=== PATIENT | female | born 1955 | race Caucasian/White ===

== ENCOUNTER → 2017-05-07 | Outpatient (CLI) | payer BC, SELFPAY | PROVIDERS: Family Provider Internal Medicine Adolescent Medicine; Visit Provider Internal Medicine Adolescent Medicine | DX: M54.12 Radiculopathy, cervical region (principal) | CPT/HCPCS: 72050 ==

== ENCOUNTER 2017-05-22 11:15 | Day surgery (SDC) | payer BC, SELFPAY ==
[2017-05-22 12:01] VITALS: BP 152/74; BP 163/83; PULSE 102; PULSE 98; RESP 20; TEMP 36.6; O2SAT 96; O2SAT 98
--- NOTE | 2017-05-22 12:07 | HMH.PMPROC ---
- Procedure Date: 05/22/17 Time: 12:08 Anesthesiologist:: Marty Tsang MD Complications:: None Pre-procedure Diagnosis:: Degenerative disc disease of lumbar spine with lumbar radiculopathy symptoms and postlaminectomy syndrome Post-procedure Diagnosis:: Same Indications for Procedure:: She is a pleasant 61-year-old white female who we are treating for low back pain with lumbar radiculopathy symptoms and postlaminectomy syndrome. She has an intrathecal Dilaudid pain pump in place. She is doing well with her pump. She does have some increasing pain today. We will refill her pump today and increase her intrathecal infusion. Patient's back is doing much better however she has increasing leg pain worse at night. We will increase her intrathecal infusion 1.2 mg per day of intrathecal Dilaudid. Procedure Details:: Pain pump refill informed consent was obtained and the risks and benefits of the procedure was explained to the patient. The patient was taken to the procedure room. The pump was interrogated. The area over the pump was prepped using ChloraPrep. The pump was accessed with a 22-gauge needle. Approximately 5 mL's of the intrathecal solution was withdrawn and discarded. The pump was then refilled with 20 mL's of intrathecal Dilaudid 10 mg/mL. The pump was interrogated and the infusion was . Increase to 1.2 mg per day from 1 mg per day. The patient tolerated the procedure well with no complication. Plan and Disposition:: We will follow-up with her and 2 weeks. Given the patient's increasing radicular symptoms especially at night I do believe the patient would benefit from spinal cord stimulation. I have talked to the patient about a spinal cord stimulator trial. We will seek approval and plan on spinal cord stimulator trial to help with her leg pain. She also has episodes of confusion with increases in her medicine so we are limited as to how much to increase her pain pump. Also she had a reaction to bupivacaine so we also limited as to additives to her intrathecal medication. Patient has failed all conservative therapy including injections and physical therapy. Again I believe spinal cord stimulation will help with significantly with her leg pain. She is also previously had back surgery which contributes to her leg pain.
[2017-05-22 12:37] VITALS: BP 115/71; PULSE 84; RESP 18; TEMP 36.5; O2SAT 95
== END 2017-05-22 12:39 | disposition home or self-care (01) ==
LOC: SC.PAINP 11:17
PROVIDERS: Family Provider Internal Medicine Adolescent Medicine; PCP Internal Medicine Adolescent Medicine; Visit Provider Anesthesiology
DX: M51.16 Intervertebral disc disorders with radiculopathy, lumbar region (principal); M96.1 Postlaminectomy syndrome, not elsewhere classified
CPT/HCPCS: 62370

== ENCOUNTER → 2017-09-05 11:01 | Outpatient (CLI) | payer BC, SELFPAY ==
[2017-09-05] VITALS (28 sets, daily range): BP systolic 97–134; BP diastolic 53–76; PULSE 57–93; RESP 15–18; TEMP 36.3–37; O2SAT 94–100; BMI 69.7
[2017-09-05 18:41] LABS: Hematocrit 25.4 % (37.0-47.0); Hemoglobin 7.4 g/dL (12.2-16.2)
[2017-09-05 22:26] LABS: Hematocrit 29.5 % (37.0-47.0); Hemoglobin 8.6 g/dL (12.2-16.2)
--- NOTE | 2017-09-06 08:47 | PC.NURSE ---
ADDENDUM NOTE FROM 09/05/17, PATIENT RECEIVED TWO UNITS OF PRBC'S PER ORDER OF DR. CAMARA. PATIENT'S ONE HOUR POST H&H REVEALED A HEMOGLOBIN OF 7.4 AND [address] OF [address] DR. MCGEE WAS TERMITE RENEWAL INSPECTOR FOR DR. CAMARA I TALKED WITH HIM AND LET HIM KNOW THAT LAB STATED THEY HAD ONE MORE UNIT THAT COULD BE GIVEN. HE GAVE THE ORDER TO GIVE THE LAST UNIT OF BLOOD HERE. I TALKED WITH THE PATIENT AND SHE WAS NOT WANTING TO STAY BECAUSE SHE DOES NOT DRIVE AFTER [place]. SHE THEN STATED SHE WOULD CALL HER FAMILY AND SEE WHAT THEY WANTED HER TO DO. SHE DECIDED TO STAY AND THEY WOULD COME PICK HER UP. I NOTIFIED LAB, [facility] AND HE STATED HE WOULD DO THE NECESSARY PAPER WORK FOR THIS PATIENT. I PASSED THIS ON IN [facility] REPORT, I WENT TO THE LAB AND PICKED UP THE 3RD UNIT OF BLOOD AND HANDED THIS OFF AND VERIFIED THIS UNIT WITH Sammy JOSE RN, I REINSERTED A 20 GAUGE ANGIO CATH IN THE RIGHT AC FOR THIS INFUSION TO TAKE PLACE. DERICK MENDOZA, MSN, RN
== END ==
PROVIDERS: PCP Internal Medicine Adolescent Medicine; Visit Provider Internal Medicine Adolescent Medicine
DX: D64.9 Anemia, unspecified (principal)
CPT/HCPCS: 36415; 36430; 85014; 85018; P9016

== ENCOUNTER → 2017-09-08 14:24 | Outpatient (CLI) | payer BC, SELFPAY ==
[2017-09-08 14:53] LABS: Basophils % 0.7 % (0.1-2.0); Eosinophils % 9.2 % (0.1-12.0); Hematocrit 30.1 % (37.0-47.0); Hemoglobin 8.7 g/dL (12.2-16.2); Lymphocytes # 2.1 K/mm3 (0.7-4.5); Lymphocytes % 44.1 K/mm3 (10-50); Mean Corpuscular HGB Conc 28.8 g/dL (31.8-35.4); Mean Corpuscular Hemoglobin 23.4 pg (27.0-31.2); Mean Corpuscular Volume 81.4 fl (81-99); Mean Platelet Volume 9.5 fl (7.4-10.4); Monocytes # 0.2 K/mm3 (0.1-1.0); Monocytes % 4.9 % (1.7-9.3); Neutrophils % 41.1 % (37.0-80.0); Platelet Count 206 K/mm3 (142-424); Red Cell Distribution Width 19.2 % (11.5-17.5); White Blood Count 4.8 K/mm3 (4.8-10.8)
[2017-09-08 14:54] LABS: Eosinophils # 0.4 K/mm3 (0.0-0.4)
[2017-09-09 07:39] LABS: Blood Urea Nitrogen 18 mg/dL (7-18); Carbon Dioxide 25 mmol/L (21.0-32.0); Chloride 105 mmol/L (98-107); Creatinine,Serum 0.76 mg/dL (0.55-1.02); Estimated Glomerular Filt Rate 77 ml/min (>60); GFR (African American) 94 ML/MIN (>60); Glucose 128 mg/dL (74-106); Sodium 140 mmol/L (136-145)
== END ==
PROVIDERS: Clinical Nurse Specialist Family Health; Visit Provider Internal Medicine Adolescent Medicine
DX: Z01.818 Encounter for other preprocedural examination (principal)
CPT/HCPCS: 36415; 80048; 85025

== ENCOUNTER → 2017-09-15 09:44 | Outpatient (POV) | payer BC, SELFPAY ==
[2017-09-15 10:00] VITALS: BP 131/69; PULSE 81; RESP 18; TEMP 36.5; O2SAT 96; BMI 31.8
--- NOTE | 2017-09-15 10:18 | HMH.PMPROC ---
- Procedure Date: 09/15/17 Time: 10:00 Anesthesiologist:: Jia Adame APRN Complications:: None Pre-procedure Diagnosis:: Degenerative disc disease of the lumbar spine with lumbar radiculopathy symptoms and postlaminectomy syndrome of the lumbar spine Post-procedure Diagnosis:: Same Indications for Procedure:: Patient is a pleasant 62-year-old white female who presents today for neurostimulator trial lead removal. Patient is doing extremely well with her neurostimulator trial. She is states that she is 80-90% better. She states she is able to walk for long distances and is much more functional. She states that her pain is a 2 out of 10 today. Patient states that the pain in her legs and lower back has improved significantly. Patient has intrathecal pain pump which controls her other pain symptoms. Patient has failed other conservative therapies including physical therapy, injections and medications in regards to her radicular pain. Patient has been very satisfied with her trial. Procedure Details:: Informed consent was obtained and the risk and benefits of the procedure were explained to the patient. The patient was taken to the procedure room where noninvasive monitoring was placed including noninvasive blood pressure cuff and pulse oximeter. The neurostimulator was turned off and the area around the leads was cleansed using chlorhexidine as a cleansing solution. Patient was positioned sitting up. Both epidural leads were removed. Leads were intact. Patient tolerated the procedure well. Bandages were placed over the puncture sites. There is no sign symptoms of infection. Plan and Disposition:: We will schedule the patient for permanent placement of a neurostimulator. Patient's neurostimulator was placed out T7 T8-T9-T10 vertebral bodies. Patient has tried and failed other conservative therapies for her radicular pain including injections, physical therapy, medications, anti-inflammatories. Patient is not on any anticoagulation. This note was dictated using voice recognition software and may contain errors or omissions
== END ==
PROVIDERS: Family Provider Internal Medicine Adolescent Medicine; PCP Internal Medicine Adolescent Medicine; Visit Provider Clinical Nurse Specialist Family Health
DX: M54.16 Radiculopathy, lumbar region (principal)
CPT/HCPCS: 99212

== ENCOUNTER → 2017-10-20 10:58 | Outpatient (POV) | payer BC, SELFPAY ==
[2017-10-20 11:28] VITALS: BP 144/54; PULSE 79; RESP 18; O2SAT 98; BMI 31.9
--- NOTE | 2017-10-20 11:49 | HMH.PAINSOAP ---
[facility] Pain Management SOAP Note Subjective:: Patient is a pleasant 62-year-old white female who presents today for follow-up after neurostimulator placement. Patient is extremely well she rates her pain a 2 out of 10 today. Patient is healing well. She denies any sign symptoms of infection. Patient also has intrathecal pain pump placed. Patient states she is doing well with both therapies. States she is doing well and is much more functional. ROS General: no recent weight change, no fever, no sleep disturbances Respiratory: no cough, no shortness of air, no recurring pulmonary infections Cardiovascular/Peripheral Vascular: No chest pain, No palpitations, no edema, no shortness of breath. Gastrointestinal: no incontinence, normal bowel movements reported Genitourinary: no incontinence Musculoskeletal: Cervical pain, low back pain Psychiatric: normal mood/ affect Neurological: [denies weakness in extremities], [denies balance issues] Objective:: Physical Exam General: Alert and oriented x3, no acute distress, pleasant and cooperative, [on room air] Lungs: Resps E/U, Symmetrical chest expansion, Eyes: PERRL Musculoskeletal: Flexion and extension of lumbar spine somewhat guarded secondary to pain, deep tendon reflexes normal, strength in upper and lower extremities [5/5], normal gait noted Neurological: speech clear, technologies division chair equal, no gross sensory deficits Assessment:: Degenerative disc disease of lumbar spine with lumbar radiculopathy symptoms and postlaminectomy syndrome of the lumbar spine, mid back pain with bilateral shoulder pain and degenerative disc disease of the cervical spine Plan:: We will follow-up with this patient in 3 months. Patient is going to be continuing with home refills for her intrathecal pain pump. Patient has been instructed to call the office if she needs anything prior to her next visit. This note was dictated using voice recognition software and may contain errors or omissions
--- NOTE | 2017-10-20 11:52 | P.CONS_ITS ---
[facility] Pain Management SOAP Note Subjective:: Patient is a pleasant 62-year-old white female who presents today for follow-up after neurostimulator placement. Patient is extremely well she rates her pain a 2 out of 10 today. Patient is healing well. She denies any sign symptoms of infection. Patient also has intrathecal pain pump placed. Patient states she is doing well with both therapies. States she is doing well and is much more functional. ROS General: no recent weight change, no fever, no sleep disturbances Respiratory: no cough, no shortness of air, no recurring pulmonary infections Cardiovascular/Peripheral Vascular: No chest pain, No palpitations, no edema, no shortness of breath. Gastrointestinal: no incontinence, normal bowel movements reported Genitourinary: no incontinence Musculoskeletal: Cervical pain, low back pain Psychiatric: normal mood/ affect Neurological: [denies weakness in extremities], [denies balance issues] Objective:: Physical Exam General: Alert and oriented x3, no acute distress, pleasant and cooperative, [ on room air] Lungs: Resps E/U, Symmetrical chest expansion, Eyes: PERRL Musculoskeletal: Flexion and extension of lumbar spine somewhat guarded secondary to pain, deep tendon reflexes normal, strength in upper and lower extremities [5/5], normal gait noted Neurological: speech clear, luncheonette operator equal, no gross sensory deficits Assessment:: Degenerative disc disease of lumbar spine with lumbar radiculopathy symptoms and postlaminectomy syndrome of the lumbar spine, mid back pain with bilateral shoulder pain and degenerative disc disease of the cervical spine Plan:: We will follow-up with this patient in 3 months. Patient is going to be continuing with home refills for her intrathecal pain pump. Patient has been instructed to call the office if she needs anything prior to her next visit. This note was dictated using voice recognition software and may contain errors or omissions
== END ==
PROVIDERS: Family Provider Internal Medicine Adolescent Medicine; PCP Family Medicine; Visit Provider Clinical Nurse Specialist Family Health
DX: M50.30 Other cervical disc degeneration, unspecified cervical region (principal); M51.36 Other intervertebral disc degeneration, lumbar region; M25.512 Pain in left shoulder; M25.511 Pain in right shoulder
CPT/HCPCS: 99212

== ENCOUNTER → 2017-11-12 10:12 | Outpatient (CLI) | payer BC, SELFPAY | PROVIDERS: Visit Provider Family Medicine | DX: D50.9 Iron deficiency anemia, unspecified (principal) | CPT/HCPCS: 36415; 86850; 86870 ==

== ENCOUNTER 2017-11-13 10:02 | Outpatient (CLI) | payer BC, SELFPAY ==
[2017-11-13] VITALS (20 sets, daily range): BP systolic 96–125; BP diastolic 51–73; PULSE 55–79; RESP 18–20; TEMP 36.2–36.4; O2SAT 96–97; BMI 35.2
[2017-11-13 16:13] LABS: Hematocrit 32.2 % (37.0-47.0); Hemoglobin 9.7 g/dL (12.2-16.2)
== END 2017-11-13 16:03 | disposition home or self-care (01) ==
LOC: INF 10:02
PROVIDERS: Family Provider Internal Medicine Adolescent Medicine; PCP Family Medicine; Visit Provider Family Medicine
DX: D50.9 Iron deficiency anemia, unspecified (principal)
CPT/HCPCS: 36430; 85014; 85018; P9016

== ENCOUNTER → 2017-12-03 10:14 | Outpatient (CLI) | payer BC, SELFPAY ==
--- NOTE | 2017-12-03 10:19 | XR_ITS ---
XR knee LT 3V HISTORY: ITS.REASON: ACUTE LT KNEE PAIN ORDERING PHYSICIAN: George Jacob MD PATIENT AGE: 62 years COMPARISON: None FINDINGS: No fracture or dislocation. No lytic or blastic change. Normal mineralization. No significant arthritic changes evident. No other significant findings IMPRESSION: Negative Knee
== END ==
PROVIDERS: PCP Family Medicine; Visit Provider Family Medicine
DX: M25.562 Pain in left knee (principal)
CPT/HCPCS: 73562

== ENCOUNTER → 2017-12-11 10:22 | Outpatient (POV) | payer BC, SELFPAY ==
[2017-12-11 10:59] VITALS: BP 158/80; PULSE 93; RESP 18; O2SAT 96; BMI 32.9
--- NOTE | 2017-12-11 11:07 | HMH.PAINSOAP ---
[facility] Pain Management SOAP Note Subjective:: This patient is a pleasant 62-year-old white female who we are treating for low back pain with lumbar radicular symptoms. She does have an intrathecal hydromorphone pain pump currently going at 2 mg per day. She also has a Nuvectra spinal cord stimulator system in place. She is doing very well with her stimulator and her pain pump. She is recently had some new onset of left knee pain. Her knee hurts whether she is active or sitting. She did get an x-ray done by her primary care physician which said it just showed some degenerative arthritis. She also reports some sciatica type symptoms in her left leg. I believe she would benefit from reprogramming of her stimulator to see if this pain is from sciatica type symptoms. Objective:: Alert and oriented ?3 in no acute distress. Patient does have an antalgic gait. There is no swelling or tenderness over the left knee. Motor strength of the lower extremities is 5/5. There seems to be good range of motion of the left knee. There is no gross sensory deficit. Assessment:: Degenerative disc disease of lumbar spine with lumbar radiculopathy symptoms and postlaminectomy syndrome lumbar spine. Left knee pain Plan:: We will plan on reprogramming her stimulator to see if this helps with her left-sided knee pain and sciatica type symptoms. If she does not get any benefit from reprogramming of her stimulator then we will plan on a left knee intra-articular injection next week.
--- NOTE | 2017-12-11 11:12 | P.CONS_ITS ---
[facility] Pain Management SOAP Note Subjective:: This patient is a pleasant 62-year-old white female who we are treating for low back pain with lumbar radicular symptoms. She does have an intrathecal hydromorphone pain pump currently going at 2 mg per day. She also has a Nuvectra spinal cord stimulator system in place. She is doing very well with her stimulator and her pain pump. She is recently had some new onset of left knee pain. Her knee hurts whether she is active or sitting. She did get an x- ray done by her primary care physician which said it just showed some degenerative arthritis. She also reports some sciatica type symptoms in her left leg. I believe she would benefit from reprogramming of her stimulator to see if this pain is from sciatica type symptoms. Objective:: Alert and oriented ?3 in no acute distress. Patient does have an antalgic gait. There is no swelling or tenderness over the left knee. Motor strength of the lower extremities is 5/5. There seems to be good range of motion of the left knee. There is no gross sensory deficit. Assessment:: Degenerative disc disease of lumbar spine with lumbar radiculopathy symptoms and postlaminectomy syndrome lumbar spine. Left knee pain Plan:: We will plan on reprogramming her stimulator to see if this helps with her left- sided knee pain and sciatica type symptoms. If she does not get any benefit from reprogramming of her stimulator then we will plan on a left knee intra- articular injection next week.
[2017-12-11 11:39] LABS: Creatine Kinase 24 U/L (26-192)
== END ==
PROVIDERS: Family Provider Internal Medicine Adolescent Medicine; PCP Family Medicine; Visit Provider Anesthesiology
DX: M51.16 Intervertebral disc disorders with radiculopathy, lumbar region (principal); M96.1 Postlaminectomy syndrome, not elsewhere classified; M25.562 Pain in left knee
CPT/HCPCS: 36415; 82550; 99212

== ENCOUNTER → 2018-01-04 15:29 | Outpatient (POV) | payer BC, SELFPAY ==
[2018-01-04 15:30] VITALS: BP 141/73; PULSE 74; RESP 18; O2SAT 97; BMI 34.3
--- NOTE | 2018-01-04 15:51 | HMH.PAINSOAP ---
[facility] Pain Management SOAP Note Subjective:: Patient is a pleasant 62-year-old white female who we are treating for low back pain with lumbar radicular symptoms as well as bilateral pain. Patient but has both a neuro stimulator and intrathecal pain pump. Patient's only complaint of pain is in her bilateral knees. Patient had bilateral knee injections several weeks ago and did quite well with them. Patient would like to repeat this. If she does not get long-term relief we did discuss an orthopedic evaluation for Synvisc injections. She rates an 8 out of 10 today. Patient is currently on anti-inflammatories. ROS General: no recent weight change, no fever, no sleep disturbances Respiratory: no cough, no shortness of air, no recurring pulmonary infections Cardiovascular/Peripheral Vascular: No chest pain, No palpitations, no edema, no shortness of breath. Gastrointestinal: no incontinence, normal bowel movements reported Genitourinary: no incontinence Musculoskeletal: Bilateral knee pain Psychiatric: normal mood/ affect Neurological: [denies weakness in extremities], [denies balance issues] Objective:: Physical Exam General: Alert and oriented x3, no acute distress, pleasant and cooperative, [on room air] Lungs: Resps E/U, Symmetrical chest expansion, Eyes: PERRL Musculoskeletal: Range of motion bilateral knees somewhat guarded secondary to pain, deep tendon reflexes normal, strength in upper and lower extremities [5/5], [abnormal gait noted] Neurological: speech clear, outfitter cabin equal, no gross sensory deficits Assessment:: Osteoarthritis bilateral knees, degenerative disc disease of lumbar spine with lumbar radiculopathy Plan:: We will schedule patient for bilateral intra-articular knee injections. Patient and I did discuss if she does not get long-term relief we will send her to [facility] for possible Synvisc injections.
--- NOTE | 2018-01-04 15:54 | P.CONS_ITS ---
[facility] Pain Management SOAP Note Subjective:: Patient is a pleasant 62-year-old white female who we are treating for low back pain with lumbar radicular symptoms as well as bilateral pain. Patient but has both a neuro stimulator and intrathecal pain pump. Patient's only complaint of pain is in her bilateral knees. Patient had bilateral knee injections several weeks ago and did quite well with them. Patient would like to repeat this. If she does not get long-term relief we did discuss an orthopedic evaluation for Synvisc injections. She rates an 8 out of 10 today. Patient is currently on anti-inflammatories. ROS General: no recent weight change, no fever, no sleep disturbances Respiratory: no cough, no shortness of air, no recurring pulmonary infections Cardiovascular/Peripheral Vascular: No chest pain, No palpitations, no edema, no shortness of breath. Gastrointestinal: no incontinence, normal bowel movements reported Genitourinary: no incontinence Musculoskeletal: Bilateral knee pain Psychiatric: normal mood/ affect Neurological: [denies weakness in extremities], [denies balance issues] Objective:: Physical Exam General: Alert and oriented x3, no acute distress, pleasant and cooperative, [ on room air] Lungs: Resps E/U, Symmetrical chest expansion, Eyes: PERRL Musculoskeletal: Range of motion bilateral knees somewhat guarded secondary to pain, deep tendon reflexes normal, strength in upper and lower extremities [5/5] , [abnormal gait noted] Neurological: speech clear, foot tender equal, no gross sensory deficits Assessment:: Osteoarthritis bilateral knees, degenerative disc disease of lumbar spine with lumbar radiculopathy Plan:: We will schedule patient for bilateral intra-articular knee injections. Patient and I did discuss if she does not get long-term relief we will send her to [facility] for possible Synvisc injections.
== END ==
PROVIDERS: Family Provider Internal Medicine Adolescent Medicine; PCP Family Medicine; Visit Provider Clinical Nurse Specialist Family Health
DX: M17.0 Bilateral primary osteoarthritis of knee (principal); M51.16 Intervertebral disc disorders with radiculopathy, lumbar region
CPT/HCPCS: 99213

== ENCOUNTER → 2018-02-01 13:31 | Outpatient (POV) | payer BC, SELFPAY ==
[2018-02-01 13:41] VITALS: BP 154/79; PULSE 83; RESP 18; O2SAT 95; BMI 34.3
--- NOTE | 2018-02-01 13:57 | P.PCN_ITS ---
- Procedure Date: 02/01/18 Time: 13:50 Anesthesiologist:: Jia Adame APRN Complications:: None Pre-procedure Diagnosis:: degenerative disc disease of lumbar spine with lumbar radiculopathy, bilateral knee osteoarthritis Post-procedure Diagnosis:: Same Indications for Procedure:: Patient is a pleasant 62-year-old white female who presents today for follow-up in regards to her bilateral knee injections. Patient states she got up to 10 days relief however the pain has returned. Patient's back pain and radicular pain are managed with a intrathecal pain pump going with Dilaudid 2 mg per day and a neurostimulator. Patient rates a 6 out of 10 today mostly in her knees. Patient's requesting a small intrathecal pain pump adjustment. Patient is tried and failed anti-inflammatories. Patient has not been seen for Synvisc injections. Physical Exam General: Alert and oriented x3, no acute distress, pleasant and cooperative, [on room air] Lungs: Resps E/U, Symmetrical chest expansion, Eyes: PERRL Musculoskeletal: Flexion and extension of lumbar spine somewhat guarded secondary to pain, deep tendon reflexes normal, strength in upper and lower extremities [5/5], [abnormal gait noted] Neurological: speech clear, driver/merchandiser equal, no gross sensory deficits Procedure Details:: Informed consent was obtained and the risk and benefits of the procedure were explained to the patient. The patient was taken to the procedure room where noninvasive monitoring was placed including noninvasive blood pressure cuff and pulse oximeter. Patient's pump was interrogated. The infusion rate was increased to 2.25 mg a day. The patient tolerated the procedure well. Plan and Disposition:: We will set up an appointment with the orthopedic surgeon to see if she is a candidate for Synvisc injections. Patient has been instructed to call the office if she has any issues prior to her next appointment. This note was dictated using voice recognition software and may contain errors or omissions
== END ==
PROVIDERS: Family Provider Internal Medicine Adolescent Medicine; PCP Family Medicine; Visit Provider Clinical Nurse Specialist Family Health
DX: M51.16 Intervertebral disc disorders with radiculopathy, lumbar region (principal); M17.0 Bilateral primary osteoarthritis of knee
CPT/HCPCS: 62368; 99212

== ENCOUNTER → 2018-03-03 13:18 | Outpatient (CLI) | payer BC, SELFPAY ==
--- NOTE | 2018-03-03 13:20 | XR_ITS ---
XR knee RT 4V, XR knee LT 4V Ordering Physician: Ramos Camacho MD Patient Age: 62 years: Female HISTORY: ITS.REASON: right knee pain/ 4 views weighbearing XR knee RT 4V, XR knee LT 4V TECHNIQUE: Weightbearing AP, lateral and Lazo views were performed as well as oblique. Of both right and left knee. COMPARISON : Previous left knee 02/21/1918 none relevant on right ========= RIGHT KNEE 4 view joint space fairly well maintained with only borderline narrowing towards the lateral compartment.. No joint effusion. Bones well mineralized Patellofemoral joint relationships appear normal. Early sharpening early spurring along the lateral and superior margins of patella. A reflect scant degenerative change here. IMPRESSION right knee intact. No joint effusion only question borderline narrowing at the lateral compartment ======== LEFT KNEE 4 view Heart borderline to perhaps slight mild narrowing joint space at the lateral compartmentOn weightbearing view.. With this there question slight valgus orientation of distal tibia possibly associated. .. There is a small joint effusion suspected the suprapatella bursa on the left. Patellofemoral joint appears satisfactory Impression: Left knee Left knee, borderline narrowing the lateral compartment suggested on the weightbearing view. Small joint effusion
== END ==
PROVIDERS: PCP Family Medicine; Visit Provider Orthopaedic Surgery
DX: M25.561 Pain in right knee (principal); M25.562 Pain in left knee
CPT/HCPCS: 73564

== ENCOUNTER → 2018-04-20 09:25 | Outpatient (POV) | payer BC, SELFPAY ==
[2018-04-20 09:38] VITALS: BP 149/83; PULSE 74; RESP 18; O2SAT 98; BMI 36.0
--- NOTE | 2018-04-20 10:59 | P.PCN_ITS ---
- Procedure Date: 04/20/18 Time: 10:00 Anesthesiologist:: Jia Adame APRN Complications:: None Pre-procedure Diagnosis:: Degenerative disc disease lumbar spine with lumbar radiculopathy and bilateral knee osteoarthritis Post-procedure Diagnosis:: Same Indications for Procedure:: Patient is a very pleasant 62-year-old white female who presents today for follow-up and intrathecal pain pump reprogramming. Patient has an equal pain pump along with a neurostimulator and is doing well with this. Patient was having some increased leg pain however this is been attributed to the statin that she started. Patient is doing much better. Patient and I discussed periodic flow today and she would like to move forward with this. Patient did have injections of gel in her knees and she states that this is helping. She rates her pain a 5 out of 10 today. ROS General: no recent weight change, no fever, no sleep disturbances Respiratory: no cough, no shortness of air, no recurring pulmonary infections Cardiovascular/Peripheral Vascular: No chest pain, No palpitations, no edema, no shortness of breath. Gastrointestinal: no incontinence, normal bowel movements reported Genitourinary: no incontinence Musculoskeletal: Back pain, leg pain Psychiatric: normal mood/ affect Neurological: [denies weakness in extremities], [denies balance issues] Physical Exam General: Alert and oriented x3, no acute distress, pleasant and cooperative, [on room air] Lungs: Resps E/U, Symmetrical chest expansion, Eyes: PERRL Musculoskeletal: Flexion and extension of lumbar spine somewhat guarded secondary to pain, deep tendon reflexes normal, strength in upper and lower extremities [5/5], [abnormal gait noted] Neurological: speech clear, production or plant engineer equal, no gross sensory deficits Procedure Details:: Informed consent was obtained and the risk and benefits of the procedure were explained to the patient. The patient was taken to the procedure room where noninvasive monitoring was placed including noninvasive blood pressure cuff and pulse oximeter. Patient's pump was interrogated. The infusion rate was changed to 0.325 mg every 2 hours of Dilaudid. The patient tolerated the procedure well. Plan and Disposition:: I will follow-up with this patient in 3-4 months and reassess her symptoms at that time. Patient is being filled at home and we have notified the nurses of the change. Patient's been instructed to call the office if she has any issues prior to her next appointment. This note was dictated using voice recognition software and may contain errors or omissions
== END ==
PROVIDERS: PCP Family Medicine; Visit Provider Clinical Nurse Specialist Family Health
DX: M51.16 Intervertebral disc disorders with radiculopathy, lumbar region (principal); M17.0 Bilateral primary osteoarthritis of knee
CPT/HCPCS: 62368

== ENCOUNTER → 2018-08-13 10:46 | Outpatient (POV) | payer BC, SELFPAY ==
[2018-08-13 11:45] VITALS: BP 148/88; PULSE 78; RESP 18; O2SAT 95; BMI 38.2
--- NOTE | 2018-08-13 12:03 | HMH.PMPROC ---
- Procedure Date: 08/13/18 Time: 12:03 Anesthesiologist:: Marty Tsang MD Complications:: None Pre-procedure Diagnosis:: Degenerative disc disease of lumbar spine with lumbar radiculopathy symptoms Post-procedure Diagnosis:: Same Indications for Procedure:: This patient is a pleasant 63-year-old white female who has an intrathecal hydromorphone pain pump in place. She had been doing very well with her pump. She is now having some increased pain with increased activity. She is also had some recent falls. Her last adjustment was several months ago by home refill service. We will increase her intrathecal morphine infusion today. She has had no side effects with the medication. Motor strength of the lower extremities is 5/5. There is no gross sensory deficit. She does have an antalgic gait. Procedure Details:: Reprogramming and adjustment of intrathecal pain pump. Informed consent was obtained and the risk and benefits of the procedure was explained to the patient. Patient was taken to the procedure room. The pump was interrogated and reprogrammed. Intrathecal hydromorphone infusion was increased to 3.2 mg/day. PTC boluses were increased to 0.3 mg up to 4 times a day as needed. Patient tolerated the procedure well with no complications. Plan and Disposition:: We will follow-up with her in 1 month. Will reevaluate symptoms at that time.
--- NOTE | 2018-08-13 12:06 | P.PCN_ITS ---
- Procedure Date: 08/13/18 Time: 12:03 Anesthesiologist:: Marty Tsang MD Complications:: None Pre-procedure Diagnosis:: Degenerative disc disease of lumbar spine with lumbar radiculopathy symptoms Post-procedure Diagnosis:: Same Indications for Procedure:: This patient is a pleasant 63-year-old white female who has an intrathecal hydromorphone pain pump in place. She had been doing very well with her pump. She is now having some increased pain with increased activity. She is also had some recent falls. Her last adjustment was several months ago by home refill service. We will increase her intrathecal morphine infusion today. She has had no side effects with the medication. Motor strength of the lower extremities is 5/5. There is no gross sensory deficit. She does have an antalgic gait. Procedure Details:: Reprogramming and adjustment of intrathecal pain pump. Informed consent was obtained and the risk and benefits of the procedure was ex plained to the patient. Patient was taken to the procedure room. The pump was interrogated and reprogrammed. Intrathecal hydromorphone infusion was increased to 3.2 mg/day. PTC boluses were increased to 0.3 mg up to 4 times a day as needed. Patient tolerated the procedure well with no complications. Plan and Disposition:: We will follow-up with her in 1 month. Will reevaluate symptoms at that time.
--- NOTE | 2019-03-10 14:44 | PC.NURSE ---
LYRICA 100MG TID WITH 2 REFILLS CALLED INTO [facility] PER PROVIDER ORDER
== END ==
LOC: SC.PAIN 10:48
PROVIDERS: PCP Family Medicine; Visit Provider Anesthesiology
DX: M51.16 Intervertebral disc disorders with radiculopathy, lumbar region (principal); Z91.81 History of falling
CPT/HCPCS: 62368

== ENCOUNTER → 2019-03-28 10:03 | Outpatient (POV) | payer BC, SELFPAY ==
[2019-03-28 10:24] VITALS: BP 140/77; PULSE 80; RESP 18; O2SAT 98; BMI 39.4
--- NOTE | 2019-03-28 14:06 | HMH.PAINSOAP ---
[facility] Pain Management SOAP Note Subjective:: Patient is a pleasant 63-year-old female who presents today for follow-up. Patient has a intrathecal pain pump and a neurostimulator. Patient is currently on home refill and overall doing well she rates her pain a 4 out of 10 she recently had a fall and has bruised her me up significantly. She denies any side effects to her medications. She is also on Lyrica 100 mg. Patient's LUIS #[id number] reviewed and appropriate. ROS General: no recent weight change, no fever, no sleep disturbances Respiratory: no cough, no shortness of air, no recurring pulmonary infections Cardiovascular/Peripheral Vascular: No chest pain, No palpitations, no edema, no shortness of breath. Gastrointestinal: no new onset incontinence, normal bowel movements reported Genitourinary: no new onset incontinence Musculoskeletal: Back pain Psychiatric: normal mood/ affect Neurological: [denies new onset weakness in extremities], [denies new onset balance issues] Objective:: Physical Exam General: Alert and oriented x3, no acute distress, pleasant and cooperative, [on room air] Lungs: Resps E/U, Symmetrical chest expansion, Eyes: PERRL Musculoskeletal: Flexion and extension of lumbar spine somewhat guarded secondary to pain, deep tendon reflexes normal, strength in upper and lower extremities [5/5], [abnormal gait noted] Neurological: speech clear, imaging account manager equal, no gross sensory deficits Assessment:: Degenerative disc disease lumbar spine with lumbar radiculopathy Plan:: We will see the patient back in 6 months reassess her symptoms at that time patient may need an anti-inflammatory we discussed starting naproxen. Patient is going to call us if she needs anything prior to her next appointment. Patient is good to continue her home refills. Dr. Tsang has reviewed this note and agrees with this plan of care. This note was dictated using voice recognition software and may contain errors or omissions [facility] History I have reviewed the patient's past medical history: Yes Medical History: Reports:: Asthma, Depression, Diabetes Mellitus Type 2, Gastroesophageal Reflux Disease(GERD), Hypertension Denies:: Cancer, Diabetes Mellitus Type 1, Internal Pacemaker, MRSA, Seizures *Have you ever received a pneumonia vaccine?: Yes *Have you received a flu vaccine this season?: Yes Other Medical History: Reports: Anemia, Arthritis, Other. Denies: Blood Transfusion Reaction Laterality Cases: Bilateral: Other Other Surgeries: Yes: Colonoscopy, EGD, Other (Cervical Fusion, intrathecal pain pump ). No: Pacemaker Amputation: No Fractures: No - *Social History Smoking Status: Never smoker Alcohol Intake: never *Occupational Status:: other Housing: house Household Members: none *Travel in the last 8 weeks: None - Psychiatric History Pschychiatric History:: Reports:: Depression Family Hx:: Asthma, Cancer, Diabetes, Kidney Disease, Stroke
--- NOTE | 2019-03-28 14:09 | P.CONS_ITS ---
[facility] Pain Management SOAP Note Subjective:: Patient is a pleasant 63-year-old female who presents today for follow-up. Patient has a intrathecal pain pump and a neurostimulator. Patient is currently on home refill and overall doing well she rates her pain a 4 out of 10 she recently had a fall and has bruised her me up significantly. She denies any side effects to her medications. She is also on Lyrica 100 mg. Patient's LUIS #[id number] reviewed and appropriate. ROS General: no recent weight change, no fever, no sleep disturbances Respiratory: no cough, no shortness of air, no recurring pulmonary infections Cardiovascular/Peripheral Vascular: No chest pain, No palpitations, no edema, no shortness of breath. Gastrointestinal: no new onset incontinence, normal bowel movements reported Genitourinary: no new onset incontinence Musculoskeletal: Back pain Psychiatric: normal mood/ affect Neurological: [denies new onset weakness in extremities], [denies new onset balance issues] Objective:: Physical Exam General: Alert and oriented x3, no acute distress, pleasant and cooperative, [on room air] Lungs: Resps E/U, Symmetrical chest expansion, Eyes: PERRL Musculoskeletal: Flexion and extension of lumbar spine somewhat guarded secondary to pain, deep tendon reflexes normal, strength in upper and lower extremities [5/5], [abnormal gait noted] Neurological: speech clear, magnetic healer equal, no gross sensory deficits Assessment:: Degenerative disc disease lumbar spine with lumbar radiculopathy Plan:: We will see the patient back in 6 months reassess her symptoms at that time patient may need an anti-inflammatory we discussed starting naproxen. Patient is going to call us if she needs anything prior to her next appointment. Patient is good to continue her home refills. Dr. Tsang has reviewed this note and agrees with this plan of care. This note was dictated using voice recognition software and may contain errors or omissions [facility] History I have reviewed the patient's past medical history: Yes Medical History: Reports:: Asthma, Depression, Diabetes Mellitus Type 2, Gastroesophageal Reflux Disease(GERD), Hypertension Denies:: Cancer, Diabetes Mellitus Type 1, Internal Pacemaker, MRSA, Seizures *Have you ever received a pneumonia vaccine?: Yes *Have you received a flu vaccine this season?: Yes Other Medical History: Reports: Anemia, Arthritis, Other. Denies: Blood Transfusion Reaction Laterality Cases: Bilateral: Other Other Surgeries: Yes: Colonoscopy, EGD, Other (Cervical Fusion, intrathecal pain pump ). No: Pacemaker Amputation: No Fractures: No - *Social History Smoking Status: Never smoker Alcohol Intake: never *Occupational Status:: other Housing: house Household Members: none *Travel in the last 8 weeks: None - Psychiatric History Pschychiatric History:: Reports:: Depression Family Hx:: Asthma, Cancer, Diabetes, Kidney Disease, Stroke
--- NOTE | 2019-04-04 14:12 | PC.PHONENOTE ---
called in RX for Elavil 25mg QHS with no refills per provider order.
== END ==
PROVIDERS: PCP Family Medicine; Visit Provider Clinical Nurse Specialist Family Health
DX: M51.16 Intervertebral disc disorders with radiculopathy, lumbar region (principal)
CPT/HCPCS: 99212

== ENCOUNTER → 2019-04-12 12:51 | Outpatient (POV) | payer BC, SELFPAY ==
[2019-04-12 13:22] VITALS: BP 131/67; PULSE 74; RESP 20; O2SAT 98; BMI 37.8
--- NOTE | 2019-04-12 13:44 | P.PCN_ITS ---
- Procedure Date: 04/12/19 Time: 13:43 Anesthesiologist:: Jia Adame APRN Complications:: None Pre-procedure Diagnosis:: Degenerative disc disease lumbar spine with lumbar radiculopathy Post-procedure Diagnosis:: Same Indications for Procedure:: Patient is a pleasant 63-year-old white female who presents today for intrathecal pain pump adjustment. Patient is currently on a dose of 4.56 mg/day. She denies side effects to her medication she is on a Dilaudid infusion. Patient [facility] #[id number] reviewed and appropriate. She rates her pain today 6 out of 10. Physical Exam General: Alert and oriented x3, no acute distress, pleasant and cooperative, [on room air] Lungs: Resps E/U, Symmetrical chest expansion, Eyes: PERRL Musculoskeletal: Flexion and extension of lumbar spine somewhat guarded secondary to pain, deep tendon reflexes normal, strength in upper and lower extremities [5/5], [abnormal gait noted] Neurological: speech clear, account manager employee benefits equal, no gross sensory deficits Procedure Details:: Informed consent was obtained and the risk and benefits of the procedure were explained to the patient. The patient was taken to the procedure room where noninvasive monitoring was placed including noninvasive blood pressure cuff and pulse oximeter. Patient's pump was interrogated and reprogrammed. The infusion rate was increased to 5 mg of Dilaudid a day. The patient tolerated the procedure well. Plan and Disposition:: I will see the patient back in 2 to 3 weeks reassess her symptoms at that time she is been instructed to call the office if she has any issues prior to her next appointment. Dr. Tsang has reviewed this note and agrees with this plan of care. This note was dictated using voice recognition software and may contain errors or omissions
--- NOTE | 2019-06-16 10:22 | PC.NURSE ---
PREGABALIN 100MG TID WITH TWO REFILLS CALLED INTO [facility] PER PROVIDER ORDER
== END ==
PROVIDERS: PCP Family Medicine; Visit Provider Clinical Nurse Specialist Family Health
DX: M51.16 Intervertebral disc disorders with radiculopathy, lumbar region (principal)
CPT/HCPCS: 62368

== ENCOUNTER → 2019-10-06 10:35 | Outpatient (CLI) | payer BC, SELFPAY ==
--- NOTE | 2019-10-06 10:43 | XR_ITS ---
PROCEDURE: XR CERVICAL SPINE 5V CLINICAL INDICATION: DISORDER OF NECK Neck pain, prior neck surgery COMPARISON: CS5 CERVICAL SPINE 4 OR 5 VIEWS from 05/07/2017 FINDINGS: There is kyphosis the upper thoracic spine. Epidural stimulator devices are present in the thoracic spine. There is a cerclage wire along the spinous processes of C6 and C7. There is normal alignment of the cervical spine with 2-3 mm anterolisthesis of C4 on C5. No foraminal narrowing is evident. No fracture or dislocation. No lytic or blastic change. There is degenerative disc disease at C3-C4 C4-C5 C5-C6 and C6-C7 most severe at C5-C6 IMPRESSION: Degenerative changes as described above. Dictated by: Henry Olvera MD 10/06/2019 11:48 Electronically signed by Henry Olvera MD in [place] 10/06/2019 11:48
== END ==
LOC: RAD 10:37
PROVIDERS: PCP Family Medicine; Visit Provider Family Medicine
DX: M53.82 Other specified dorsopathies, cervical region (principal)
CPT/HCPCS: 72050

== ENCOUNTER 2019-11-01 11:00 | Outpatient (RCR) | payer BC, SELFPAY ==
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
== END 2019-11-22 10:11 | disposition home or self-care (01) ==
LOC: PT.CARL 11:00
PROVIDERS: PCP Family Medicine; Visit Provider Family Medicine
DX: M50.30 Other cervical disc degeneration, unspecified cervical region (principal); M53.82 Other specified dorsopathies, cervical region
CPT/HCPCS: 97110; 97140; 97163

== ENCOUNTER → 2019-11-02 11:04 | Outpatient (POV) | payer BC, SELFPAY ==
[2019-11-02 11:13] VITALS: BP 132/85; PULSE 85; RESP 18; TEMP 36.6; O2SAT 99; BMI 38.4
--- NOTE | 2019-11-02 14:44 | P.CONS_ITS ---
[facility] Pain Management SOAP Note Subjective:: Patient is a pleasant 64-year-old white female who we have been treating for low back pain with lumbar radicular symptoms and bilateral knee pain left greater than right. She has failed all previous conservative treatments. I talked her about peripheral nerve stimulation with the Sprint PCS system to help with her left knee pain. We will seek approval and plan on peripheral nerve stimulation with the Sprint PCS system of the femoral/saphenous nerve to help with her left knee pain. Objective:: Alert and oriented x3 no acute distress. Patient has an antalgic gait. Motor strength of lower extremities is 5/5. There is no gross sensory deficit. Assessment:: Degenerative disc disease of lumbar spine with lumbar radiculopathy symptoms and bilateral knee pain left greater than right Plan:: We will seek approval and plan on peripheral nerve stimulation of the left femoral/saphenous nerve with the Sprint PCS peripheral nerve stimulation system. [facility] History I have reviewed the patient's past medical history: Yes Medical History: Reports:: Asthma, Depression, Diabetes Mellitus Type 2, Gastroesophageal Reflux Disease(GERD), Hypertension Denies:: Cancer, Diabetes Mellitus Type 1, Internal Pacemaker, MRSA, Seizures *Have you ever received a pneumonia vaccine?: Yes *Have you received a flu vaccine this season?: Yes Other Medical History: Reports: Anemia, Arthritis, Other. Denies: Blood Transfusion Reaction Laterality Cases: Bilateral: Other Other Surgeries: Yes: Colonoscopy, EGD, Other (Cervical Fusion, intrathecal pain pump ). No: Pacemaker Amputation: No Fractures: No - *Social History Smoking Status: Never smoker Alcohol Intake: never *Occupational Status:: other Housing: house Household Members: none *Travel in the last 8 weeks: None - Psychiatric History Pschychiatric History:: Reports:: Depression Family Hx:: Asthma, Cancer, Diabetes, Kidney Disease, Stroke
== END ==
PROVIDERS: Visit Provider Anesthesiology
DX: M51.16 Intervertebral disc disorders with radiculopathy, lumbar region (principal); M25.561 Pain in right knee; M25.562 Pain in left knee
CPT/HCPCS: 99212

== ENCOUNTER → 2019-11-18 08:53 | Outpatient (POV) | payer BC, SELFPAY ==
[2019-11-18 09:08] VITALS: BP 159/88; PULSE 86; RESP 18; O2SAT 98; BMI 37.8
--- NOTE | 2019-11-18 09:56 | HMH.PMPROC ---
- Procedure Date: 11/18/19 Time: 09:56 Anesthesiologist:: Marty Tsang MD Complications:: None Pre-procedure Diagnosis:: Degenerative disc disease of lumbar spine with lumbar radiculopathy symptoms with increasing left knee pain Post-procedure Diagnosis:: Same Indications for Procedure:: This patient is a pleasant 64-year-old white female who we have been treating for low back pain with lumbar radicular symptoms and bilateral knee pain left greater than right. She is failed all previous conservative treatments. This is affecting her quality of life and decreasing her function. She does have some increasing left knee pain today. We will adjust her pump to see if this will help with some of her pain symptoms. We will also appeal for approval of her peripheral nerve stimulation with her Sprint PCS system to help with chronic left knee pain which has failed all previous conservative treatments and is not amenable to surgery. She does have increasing pain which is now affecting her function. Procedure Details:: Adjustment intrathecal Dilaudid pain pump Informed consent was obtained risk and benefits of the procedure was explained to the patient. Patient was taken the procedure room. The pump was interrogated. Intrathecal Dilaudid infusion was increased to 7 mg/day. PTC boluses were increased to 0.7 mg up to 4 times a day. Patient tolerated procedure well with no complications. Plan and Disposition:: We will follow-up with her on Thursday. We will either do peripheral nerve stimulation with the Sprint PCS system or a intra-articular knee injection. Again we will appeal to get approval for peripheral nerve stimulation as she is now having increased pain in her knee not amenable to surgical intervention and is failed all previous conservative treatments. This is affecting her function.
== END ==
PROVIDERS: PCP Family Medicine; Visit Provider Anesthesiology
DX: M51.16 Intervertebral disc disorders with radiculopathy, lumbar region (principal); M25.562 Pain in left knee; J45.909 Unspecified asthma, uncomplicated; F32.9 Major depressive disorder, single episode, unspecified; I10 Essential (primary) hypertension; K21.9 Gastro-esophageal reflux disease without esophagitis; D64.9 Anemia, unspecified; M19.90 Unspecified osteoarthritis, unspecified site; E66.9 Obesity, unspecified; Z68.37 Body mass index [BMI] 37.0-37.9, adult
CPT/HCPCS: 62368

== ENCOUNTER 2019-11-25 12:44 | Day surgery (SDC) | payer BC, SELFPAY ==
[2019-11-25 13:09] VITALS: BP 139/79; PULSE 72; RESP 18; TEMP 36.4; O2SAT 94; BMI 37.8
--- NOTE | 2019-11-25 13:22 | HMH.PMPROC ---
- Procedure Date: 11/25/19 Time: 13:23 Anesthesiologist:: Marty Tsang MD Complications:: None Pre-procedure Diagnosis:: Degenerative osteoarthritis bilateral knees with bilateral knee pain Post-procedure Diagnosis:: Same Indications for Procedure:: This patient is a pleasant 64-year-old white female who I am treating for low back pain with bilateral knee pain. She has degenerative osteoarthritis both knees. We will do bilateral intra-articular knee injections today to see if this will help with her pain symptoms. Procedure Details:: Bilateral intra-articular knee injections Informed consent was obtained and the risk and benefits of the procedure was explained to the patient. Patient was taken to the procedure room. Both knees were prepped using ChloraPrep. We injected both knees first medially then laterally with 10 mL bupivacaine 0.25% and Depo-Medrol 40 mg into each knee. Patient tolerated the procedure well with no complications. Plan and Disposition:: We will follow-up with this patient in 2 weeks. Will reevaluate symptoms at that time.
[2019-11-25 13:23] VITALS: BP 125/85; PULSE 85; RESP 18
[2019-11-25 13:24] VITALS: BP 135/85; PULSE 85; RESP 18; O2SAT 98
[2019-11-25 13:40] VITALS: BP 157/83; PULSE 76; RESP 20; O2SAT 94
== END 2019-11-25 13:40 | disposition home or self-care (01) ==
LOC: SC.PAINP 12:45
PROVIDERS: PCP Family Medicine; Visit Provider Anesthesiology
DX: M17.0 Bilateral primary osteoarthritis of knee (principal); I10 Essential (primary) hypertension; E11.9 Type 2 diabetes mellitus without complications; J45.909 Unspecified asthma, uncomplicated; M10.9 Gout, unspecified; F32.9 Major depressive disorder, single episode, unspecified
CPT/HCPCS: 20610; J1030

== ENCOUNTER → 2019-12-15 13:58 | Outpatient (POV) | payer BC, SELFPAY ==
[2019-12-15 14:09] VITALS: BP 146/78; PULSE 84; RESP 18; TEMP 36.8; O2SAT 98; BMI 36.6
--- NOTE | 2019-12-15 14:12 | HMH.PAINSOAP ---
[facility] Pain Management SOAP Note Subjective:: Patient is a pleasant 64-year-old white female who presents today for follow-up after bilateral intra-articular knee injections. Patient is being treated for bilateral knee pain and degenerative osteoarthritis bilateral knees. Patient also has an intrathecal pain pump with hydromorphone. She rates her pain a 7 out of 10 today. She says she is continuing to have knee pain. Having worsening pain on her left side today. She did get some relief with the injections, however, her pain did return. She wanted to undergo the sprint procedure, however, she did not get approval by her insurance. She and I did discuss undergoing genicular blocks to her knees. She would like to proceed with this to see if this will give her relief to her knees. She did request some tramadol today. She says she is taken this in the past and it did help. Patient I did have a discussion of concern of oversedation with her intrathecal therapy. I did discuss with her topical gels for her knees. She has been advised not to take oral anti-inflammatories other providers. SHe has tried physical therapy with no relief. Review of Systems General: No recent weight changes, no fever, no sleep disturbances Respiratory: No cough, no shortness of air, no recurring pulmonary infections Cardiovascular/peripheral vascular: No chest pain, no palpitations, no edema, no shortness of breath Gastrointestinal: No new onset incontinence, normal bowel movements reported Genitourinary: No new onset incontinence Musculoskeletal: Bilateral knee pain Psychiatric: Normal mood/affect Neurological: [Denies weakness in extremities], [denies balance issues] Objective:: Physical exam General: Alert and oriented x3, no acute distress, pleasant and cooperative, [on room air] Lungs: Respirations even and unlabored, symmetrical chest expansion Eyes: PERRL Musculoskeletal: Flexion and extension of lumbar spine somewhat guarded secondary to pain, deep tendon reflexes normal, strength in upper and lower extremities [5/5], [abnormal gait noted] Neurological: Speech clear, legal receptionist equal, no gross sensory deficit Assessment:: Degenerative osteoarthritis bilateral knees, bilateral knee pain Plan:: We will schedule the patient for a left knee genicular block. She is having worsening pain on the left side at this time. We will also order the patient diclofenac gel 1% 4 g topical 4 times daily. We will see her back in the clinic after her procedure to reassess her symptoms. She has been instructed to contact the clinic if she has any concerns before her next appointment. The patient and I specifically discussed risk factors for COVID19. These risks include, but are not limited to age greater than 60, heart or lung disease, diabetes, immunosuppression, and travel. We also discussed NSAIDs may worsen COVID19 infection or symptoms. Patient should not use NSAIDs to treat COVID19 signs or symptoms. Patient was also informed that any type of corticosteroid of any form (oral or injection) will decrease the patient's immune system response and may increase the likelihood of COVID19 infection [address] symptoms[address]. Tsang has reviewed this note and agrees with this plan of care. This note was dictated using voice recognition software and make contain errors or omissions. [facility] History I have reviewed the patient's past medical history: Yes Medical History: Reports:: Asthma, Depression, Gastroesophageal Reflux Disease(GERD), Hypertension Denies:: Cancer, Diabetes Mellitus Type 1, Diabetes Mellitus Type 2, Internal Pacemaker, MRSA, Seizures *Have you ever received a pneumonia vaccine?: No *Have you received a flu vaccine this season?: No Other Medical History: Reports: Anemia, Arthritis, Other. Denies: Blood Transfusion Reaction Laterality Cases: Bilateral: Other Other Surgeries: Yes: Colonoscopy, EGD, Other (Cervical Fusion, intrathecal pain pump ). No: Pacemaker
== END ==
PROVIDERS: PCP Family Medicine; Visit Provider Clinical Nurse Specialist Family Health
DX: M17.0 Bilateral primary osteoarthritis of knee (principal)
CPT/HCPCS: 99212

== ENCOUNTER → 2019-12-30 13:25 | Outpatient (CLI) | payer BC, SELFPAY ==
--- NOTE | 2019-12-30 13:39 | XR_ITS ---
PROCEDURE: XR CHEST AP CLINICAL HISTORY: COUGH COMPARISON: CR CXR1 CHEST-PORTABLE from 07/15/2016 CR CXR CHEST(2 VIEWS-NOT PORTABLE) from 12/25/2016 FINDINGS: Mild cardiomegaly without failure. There is an epidural stimulator device present. The tip overlies the upper thoracic spine. Study is technically limited. There are old right-sided rib fractures. No lobar consolidation or collapse. IMPRESSION: Cardiomegaly, no acute finding Dictated by: Henry Olvera MD 12/30/2019 14:14 Henry Olvera MD in [place] 12/30/2019 14:14
[2019-12-30 14:15] LABS: Basophils % 0.2 % (0.1-2.0); Eosinophils # 0.1 K/mm3 (0.0-0.4); Eosinophils % 0.9 % (0.1-12.0); Hematocrit 39.4 % (37.0-47.0); Hemoglobin 13.3 g/dL (12.2-16.2); Lymphocytes # 1.2 K/mm3 (0.7-4.5); Lymphocytes % 14.8 % (10-50); Mean Corpuscular HGB Conc 33.6 g/dL (31.8-35.4); Mean Corpuscular Hemoglobin 34.4 pg (27.0-31.2); Mean Corpuscular Volume 102.4 fl (81-99); Mean Platelet Volume 7.7 fl (7.4-10.4); Monocytes # 0.3 K/mm3 (0.1-1.0); Neutrophils # 6.3 K/mm3 (1.8-7.8); Neutrophils % 80.1 % (37.0-80.0); Platelet Count 172 K/mm3 (142-424); Red Blood Count 3.85 M/mm3 (4.20-5.40); Red Cell Distribution Width 13.6 % (11.5-17.5); White Blood Count 7.8 K/mm3 (4.8-10.8)
== END ==
PROVIDERS: PCP Family Medicine; Visit Provider Physician Assistant
DX: Z03.818 Encounter for observation for suspected exposure to other biological agents ruled out (principal)
CPT/HCPCS: 36415; 71045; 85025; U0003

== ENCOUNTER 2019-12-30 14:03 | Day surgery (SDC) | payer BC, SELFPAY ==
[2019-12-30 14:54] VITALS: BP 136/75; PULSE 84; RESP 18; TEMP 36.7; O2SAT 94; BMI 37.8
[2019-12-30 15:34] VITALS: BP 132/87; BP 142/79; PULSE 85; RESP 18; O2SAT 98
--- NOTE | 2019-12-30 15:38 | HMH.PMPROC ---
- Procedure Date: 12/30/19 Time: 15:38 Anesthesiologist:: Marty Tsang MD Complications:: None Pre-procedure Diagnosis:: Left knee pain with degenerative osteoarthritis and low back pain with lumbar radiculopathy symptoms Post-procedure Diagnosis:: Same Indications for Procedure:: This patient is a pleasant 64-year-old white female who we are treating for low back pain with lumbar radiculopathy symptoms and left knee pain with degenerative osteoarthritis. She presents today for left knee genicular nerve block. We will do this today in addition to adjusting her pump to periodic flow. We will change her pump to periodic flow with 8 boluses today of 1.25 mg per bolus of intrathecal Dilaudid. Procedure Details:: Left knee genicular block Informed consent was obtained and the risk and benefits of the procedure was explained to the patient. The patient was taken to the procedure room. The left knee was prepped using ChloraPrep. I placed 22-gauge needles into the area of the left superior medial genicular nerve, left superior lateral genicular nerve and left inferior medial genicular nerve. Needle placement was confirmed in AP and lateral views with dye. We then injected bupivacaine 0.25% 3 mL's and Depo-Medrol 25 mg into each area of the left superior medial genicular nerve, left superior lateral genicular nerve and left inferior medial genicular nerve. Patient tolerated the procedure well with no complications. Intrathecal pain pump was interrogated. She was changed to periodic flow. She was changed to 1.25 mg boluses of intrathecal Dilaudid up to 8 times a day with a 3-hour lockout. Patient tolerated the procedure well with no complications. Plan and Disposition:: We will follow-up with her and 2 weeks. Will reevaluate symptoms at that time. If she gets success with these blocks she may be a candidate for radiofrequency ablation to the genicular nerves. She is also on home refill so we will follow-up on her pump changes with her home refill nurse with [facility].
[2019-12-30 15:45] VITALS: BP 151/80; PULSE 75; RESP 20; O2SAT 94
== END 2019-12-30 15:46 | disposition home or self-care (01) ==
LOC: SC.PAINP 14:04
PROVIDERS: PCP Family Medicine; Visit Provider Anesthesiology
DX: M17.12 Unilateral primary osteoarthritis, left knee (principal); M54.5 Low back pain; M54.16 Radiculopathy, lumbar region; I10 Essential (primary) hypertension; Z88.2 Allergy status to sulfonamides; E78.5 Hyperlipidemia, unspecified; J45.909 Unspecified asthma, uncomplicated; M10.9 Gout, unspecified; F32.9 Major depressive disorder, single episode, unspecified; Z79.51 Long term (current) use of inhaled steroids; Z79.899 Other long term (current) drug therapy
CPT/HCPCS: 64454; J1040; Q9966

== ENCOUNTER → 2020-01-26 09:42 | Outpatient (POV) | payer BC, SELFPAY ==
[2020-01-26 10:30] VITALS: BP 125/69; PULSE 86; RESP 18; TEMP 36.2; O2SAT 96; BMI 36.7
--- NOTE | 2020-01-26 10:40 | HMH.PMPROC ---
- Procedure Date: 01/26/20 Time: 10:40 Anesthesiologist:: Laura Hodgson APRN Complications:: None Pre-procedure Diagnosis:: Left knee pain, degenerative osteoarthritis left knee, low back pain with lumbar radiculopathy symptoms Post-procedure Diagnosis:: Same Indications for Procedure:: Patient is a 64-year-old white female who presents today for pain pump adjustment. She has been treated for chronic low back pain with lumbar radiculopathy symptoms and left knee pain with osteoarthritis. Patient says her pain is worsening. She is currently on a high dose of intrathecal therapy with Dilaudid at 10 mg/day, 8 boluses at 1.25 mg day. She rates her pain an 8 out of 10. She would like an increase. I had a long discussion with the patient her dosing. She and I did discuss possibly beginning to wane on her medication as she is at a high dose, however, patient is very reluctant with this. She and I did discuss possible injective therapy if changing the medication today does not give her relief. We also discussed change out of her spinal cord stimulator. The patient does have a new Vectra spinal cord stimulator that she says works periodically, however, she says most of the time it is no longer working. She says while the medication is working she does not feel like the medicine last long enough. We will keep her at her current dose but will change her from 8 boluses a day to 10 boluses a day to see if this gives her relief. Patient's Don #[id number] has been reviewed and is appropriate. Her morphine equivalent is 0. She has been undergoing urine drug screens through [facility] and they have been appropriate. Physical exam General: Alert and oriented x3, no acute distress, pleasant and cooperative, [on room air] Lungs: Respirations even and unlabored, symmetrical chest expansion Eyes: PERRL Musculoskeletal: Flexion and extension of lumbar spine somewhat guarded secondary to pain, deep tendon reflexes normal, strength in upper and lower extremities [5/5], [abnormal gait noted] Neurological: Speech clear, photogrammetric engineer equal, no gross sensory deficit Procedure Details:: Informed consent was obtained and the risk and benefits of the procedure were explained to the patient. Patient was taken to the procedure room where noninvasive monitoring was placed including noninvasive blood pressure cuff and pulse oximeter. Patient's pump was interrogated and was reprogrammed to Dilaudid with 10 boluses of 1 mg. Daily dose of 10 mg.. The patient tolerated the procedure well with no complications. Plan and Disposition:: We will follow-up with the patient in 6 months unless her pain worsens. She has been instructed that she can contact the clinic if this is not effective for her pain. She also understands that we will discuss possible weaning in her medication versus injections versus change out of her stimulator if this is not effective for her. The patient and I specifically discussed risk factors for COVID19. These risks include, but are not limited to age greater than 60, heart or lung disease, diabetes, immunosuppression, and travel. We also discussed NSAIDs may worsen COVID19 infection or symptoms. Patient should not use NSAIDs to treat COVID19 signs or symptoms. Patient was also informed that any type of corticosteroid of any form (oral or injection) will decrease the patient's immune system response and may increase the likelihood of COVID19 infection [address] symptoms[address] Dr. Tsang has reviewed this note and agrees with this plan of care. This note was dictated using voice recognition software and make contain errors or omissions.
== END ==
PROVIDERS: PCP Family Medicine; Visit Provider Clinical Nurse Specialist Family Health
DX: M17.12 Unilateral primary osteoarthritis, left knee (principal); M54.5 Low back pain; M54.16 Radiculopathy, lumbar region
CPT/HCPCS: 99212

== ENCOUNTER → 2020-07-24 14:13 | Outpatient (CLI) | payer BC, SELFPAY ==
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
--- NOTE | 2020-07-24 14:18 | MM_ITS ---
PROCEDURE: MM DIG SCREENING MAMM BI W/CAD Digital Breast Tomosynthesis Included CLINICAL INDICATION: SCREENING There is a history of breast cancer patient's sister diagnosed after menopause. COMPARISON: The patient had previous mammograms over 10 years ago and they are not available for review TECHNIQUE: Standard CC and MLO images and 3D Tomosynthesis was obtained. R2 CAD reviewed. FINDINGS: Breasts are composed primarily of fat. There are asymmetric glandular elements deep to the nipple right breast but with some irregular borders and a couple of associated calcifications. There are couple of additional benign-appearing microcalcifications in each breast. Since there are no previous mammograms for comparison recommend the patient return for spot compression views of the asymmetric glandular elements right breast and ultrasound for additional evaluation. IMPRESSION: Fatty type breast parenchyma with asymmetric glandular elements with irregular borders right breast BI-RAD Category: 0 Need Additional Imaging Evaluation FOLLOW-UP: IMM Immediate Follow-up Recommended (A letter has been sent to the patient regarding results of the study.) Dictated by: Dr. Delroy Mccarthy MD 07/29/2020 17:28 Dr. Delroy Mccarthy MD in [place] 07/29/2020 17:28
== END ==
PROVIDERS: PCP Family Medicine; Visit Provider Family Medicine
DX: Z12.31 Encounter for screening mammogram for malignant neoplasm of breast (principal); Z13.820 Encounter for screening for osteoporosis; Z78.0 Asymptomatic menopausal state
CPT/HCPCS: 77063; 77067; 77080

== ENCOUNTER 2020-10-30 10:30 | Outpatient (RCR) | payer BC, SELFPAY ==
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
== END 2020-10-30 10:35 | disposition home or self-care (01) ==
LOC: PT 10:30
PROVIDERS: PCP Family Medicine; Visit Provider Family Medicine
DX: M53.82 Other specified dorsopathies, cervical region; M95.3 Acquired deformity of neck
CPT/HCPCS: 97110; 97140; 97163; 97164

== ENCOUNTER → 2021-02-19 09:08 | Outpatient (POV) | payer BC, SELFPAY ==
[2021-02-19 09:40] VITALS: BP 148/79; PULSE 69; RESP 18; O2SAT 95; BMI 33.7
--- NOTE | 2021-02-19 12:52 | HMH.PMPROC ---
- Procedure Date: 02/19/21 Time: 13:00 Anesthesiologist:: Laura Hodgson APRN Complications:: None Pre-procedure Diagnosis:: Degenerative disc disease lumbar spine with lumbar radiculopathy symptoms, left knee pain, degenerative osteoarthritis left knee, malfunctioning spinal cord stimulator device Post-procedure Diagnosis:: Same Indications for Procedure:: Patient is a 65-year-old white female who presents today for intrathecal pain pump adjustment. She is also having worsening pain in her lower extremities. Patient does have osteoarthritis left knee. She reports that her pain is progressively worsening. She is currently on Dilaudid at 8 mg/day. She would like an increase in her dosing. She rates her pain a 10 out of 10 today. She does have a new [employer] spinal cord stimulator that is no longer functioning appropriately. She does not have the charging cord for the device. She says when the device was functioning appropriately, she got excellent pain relief at about 80 to 90%. Unfortunately the device is no longer working appropriately and the company has since filed bankruptcy. She is unable to undergo reprogramming of the device or receive replacement charging cable due to the company being out of business. The patient does get relief with her intrathecal therapy to her low back area. The spinal cord stimulator was used to give patient relief of bilateral lower extremity pain. The patient has undergone physical therapy for greater than 6 weeks in the past along with continued home stretching. She continues with ice and heat therapies as well. She does rate her pain a 10 out of 10 today. Physical exam General: Alert and oriented x3, no acute distress, pleasant and cooperative, [on room air] Lungs: Respirations even and unlabored, symmetrical chest expansion Eyes: PERRL Musculoskeletal: Flexion and extension of lumbar [spine] somewhat guarded secondary to pain, [antalgic gait noted] Neurological: Speech clear, no gross sensory deficit Procedure Details:: Informed consent was obtained and the risk and benefits of the procedure were explained to the patient. Patient was taken to the procedure room where noninvasive monitoring was placed including noninvasive blood pressure cuff and pulse oximeter. Patient's pump was interrogated and was reprogrammed to increase to Dilaudid at 8.5 mg/day. The patient tolerated the procedure well with no complications. Plan and Disposition:: Patient did receive an increase in her intrathecal therapy today. Unfortunately, the patient is not getting relief to her bilateral lower extremity pain due to malfunctioning spinal cord stimulator. [employer]. has since filed bankruptcy and we are unable to reprogram the patient's spinal cord stimulator. We are also unable to get new charging cables for the patient. Patient got between 80 to 90% relief of her lower extremity pain when the device was working appropriately. We have discussed changing out the device to a [employer] stimulator. She is in agreement. We will schedule her for change out of the device. Patient says that she is not on anticoagulation therapy. We will follow up with her after change out of the device for reevaluation of symptoms. She is in a is home refill patient. Risks and benefits of the procedure have been explained to the patient. Patient would like to proceed with the procedure. Risks and benefits of the medication have been explained in detail to the patient. The patient has been advised to consult with his/her primary care provider and pharmacist regarding drug-drug interaction of medications currently prescribed. Patient has been prescribed a controlled substance after being counseled on the medication, medication safety, and possible side effects. LUIS report has been obtained and reviewed prior to prescription and found to be appropriate. Opioid contract was reviewed and signed by the patient, a
== END ==
PROVIDERS: Visit Provider Clinical Nurse Specialist Family Health
DX: M51.16 Intervertebral disc disorders with radiculopathy, lumbar region (principal); M17.0 Bilateral primary osteoarthritis of knee; T85.113A Breakdown (mechanical) of implanted electronic neurostimulator, generator, initial encounter; Z45.1 Encounter for adjustment and management of infusion pump
CPT/HCPCS: 62368; 99212; G0463

== ENCOUNTER → 2021-03-05 13:11 | Outpatient (CLI) | payer BC, SELFPAY ==
[2021-03-05 13:28] LABS: Basophils % 0.8 % (0.1-2.0); Eosinophils # 0.2 K/mm3 (0.0-0.4); Eosinophils % 5.4 % (0.1-12.0); Hematocrit 40.9 % (37.0-47.0); Hemoglobin 12.8 g/dL (12.2-16.2); Lymphocytes # 1.5 K/mm3 (0.7-4.5); Lymphocytes % 33.7 % (10-50); Mean Corpuscular HGB Conc 31.4 g/dL (31.8-35.4); Mean Corpuscular Hemoglobin 33.2 pg (27.0-31.2); Mean Corpuscular Volume 105.9 fl (81-99); Mean Platelet Volume 7.1 fl (7.4-10.4); Monocytes # 0.3 K/mm3 (0.1-1.0); Monocytes % 6.9 % (1.7-9.3); Neutrophils # 2.4 K/mm3 (1.8-7.8); Neutrophils % 53.3 % (37.0-80.0); Platelet Count 191 K/mm3 (142-424); Red Blood Count 3.87 M/mm3 (4.20-5.40); Red Cell Distribution Width 12.9 % (11.5-17.5); White Blood Count 4.4 K/mm3 (4.8-10.8)
[2021-03-05 14:19] LABS: Coronavirus 19, PCR Not Detected (NotDetected); Influenza A, PCR Not Detected (NotDetected); Influenza B, PCR Not Detected (NotDetected)
[2021-03-05 14:37] LABS: Chloride 100 mmol/L (98-107); Potassium 4.4 mmoL/L (3.5-5.1); Sodium 136 mmol/L (136-145)
[2021-03-05 14:40] LABS: Anion Gap 15.4 mEq/L (5-15); Blood Urea Nitrogen 10 mg/dl (7-17); Calcium 8.7 mg/dl (8.4-10.2); Carbon Dioxide 25 mmol/L (22.0-30.0); Estimated Glomerular Filt Rate 84 ml/min (>60); GFR (African American) 102 ML/MIN (>60); Glucose 107 mg/dl (74-100)
== END ==
PROVIDERS: Visit Provider Anesthesiology
DX: Z01.812 Encounter for preprocedural laboratory examination (principal); Z11.52 Encounter for screening for COVID-19; M51.36 Other intervertebral disc degeneration, lumbar region
CPT/HCPCS: 36415; 80048; 85025; C9803; U0003; U0005

== ENCOUNTER 2021-03-06 09:07 | Day surgery (SDC) | payer BC, SELFPAY ==
[2021-03-04 09:58] VITALS: BMI 35.6
[2021-03-06] VITALS (8 sets, daily range): BP systolic 94–132; BP diastolic 56–75; PULSE 67–80; RESP 18; TEMP 36.5–36.9; O2SAT 93–96
--- NOTE | 2021-03-06 10:57 | HMH.ANESCL ---
[facility] Anesthesia Checklist - Patient Identification Patient Identification: Arm Band, Verbal (Name & ) - Structural Data Planned Operative Procedure/s: removal and new placement of pain pump generator Consent for Planned Operative Procedure(s) Verified: Yes Verified Documents: Surgical Consent - NPO Status Verified Time NPO: 23:00 - Additional verifications Anesthesia Reactions: No Hx Blood Transfusions: No Blood Transfusion Reaction: No - Cardiovascular Assessment Heart Sounds: S1 & S2 - Airway Assessment C-Spine Mobility Assessed: Yes TMJ Mobility Assessed: Yes Dentition: Poor Dentition - Neurological Assessment Level of Consciousness: Awake, Alert, Appropriate - Anesthesia Plan Anesthesia Risk discussed: Yes ASA Class: III Anesthesia Type: MAC [facility] History Medical History: Reports:: Asthma, Depression, Diabetes Mellitus Type 2, Gastroesophageal Reflux Disease(GERD), Hyperlipidemia, Hypertension Denies:: Cancer, Diabetes Mellitus Type 1, Internal Pacemaker, MRSA, Seizures *Have you ever received a pneumonia vaccine?: Yes *Have you received a flu vaccine this season?: Yes Other Medical History: Reports: Anemia, Arthritis, Other. Denies: Blood Transfusion Reaction Anesthesia experience/problems:: no issues Laterality Cases: Bilateral: Other Other Surgeries: Yes: Colonoscopy, EGD, Other (Cervical Fusion, intrathecal pain pump ). No: Pacemaker Amputation: No Fractures: No - *Social History Last grade of school completed: High school graduate Smoking Status: Never smoker Alcohol Intake: never Substance Use Type: denies use *Occupational Status:: retired Housing: house Household Members: none *Travel in the last 8 weeks: None - Psychiatric History Pschychiatric History:: Reports:: Depression Family Hx:: Anemia, Asthma, Cancer, Diabetes, Hypertension, Kidney Disease
--- NOTE | 2021-03-06 12:27 | HMH.OPNOTE ---
Date of procedure: 03/06/21 Pre-op Diagnosis:: Malfunctioning pain stimulator and generator leads Post-op Diagnosis:: Same Procedure performed:: Removal and replacement of pain stimulator generator Surgeon:: Luis Patton MD LEATHER GRADER:: Pepe Jimenes, Jd Vergara, Shabbir Calderon, Logan Blank, Jcarlos Allen, Blaise Hrerera, Other Anesthesia: MAC Estimated blood loss (mL): 20 Operative findings:: Not applicable Operative note:: Once adequate IV sedation was obtained the patient was placed prone on the operating table and her back and flank regions were prepped and draped in sterile fashion. An incision was made over the lead insertion site with careful dissection the leads were removed (3) as well as fixation devices. An incision was then made over the generator site and the generator was likewise removed removing all the leads and associated equipment. At this point new epidural leads were placed in the epidural space by Dr. Tsang to the area desired by Dr. Tsang. The leads were then fixed the paraspinal fascia with fixation devices and 2-0 Prolene suture. Utilizing the tunneling device the leads were passed from the paraspinal incision to the generator incision without difficulty. Leads connected the generator which was placed in the pocket. System functioning properly. Antibiotic solution was treated to both incisions. The subcutaneous tissues were closed with arm stitches of 2-0 Vicryl. The skin was then closed arm stitches he of 4-0 nylon at the generator site and 2-0 nylon and 4-0 nylon at the generator's insertion site. Wound VAC dressings and a binder applied to the wounds. The patient taught procedure well and was taken to the recovery room in stable condition. Further follow-up in the pain clinic. Antibiotics x1 week per protocol. The patient tolerated the procedure well Condition: stable Disposition: PACU Complications:: None
--- NOTE | 2021-03-06 14:07 | P.OP_ITS ---
Date of procedure: 03/06/21 Pre-op Diagnosis:: Nonfunctioning spinal cord stimulator system for degenerative disc disease of lumbar spine with lumbar radiculopathy symptoms Post-op Diagnosis:: Same Procedure performed:: Replacement spinal cord stimulator system leads and generator Surgeon:: Marty Tsang MD BENDING ROLL HAND:: Jcarlos Allen Anesthesia: MAC Estimated blood loss (mL): 25 Clinical Note:: Patient is a pleasant 65-year-old white female who has a [employer] spinal cord stimulator system in place. She has increasing low back pain with degenerative disc disease of lumbar spine with lumbar radiculopathy symptoms. Her spinal cord stimulator system currently has failed. There is no support for this system. We will replace her spinal cord stimulator system generator and leads today. Operative findings:: None Operative note:: Informed consent was obtained the risk and benefits of the procedure were explained to the patient. The patient was taken the operating room placed prone on the procedure table. She was prepped and draped in sterile fashion. C-arm fluoroscopy was used to view the lumbar spine. Dr. Patton explanted the leads and generator of the previous Nuvectra spinal cord stimulator system. I placed a 17-gauge epidural needle and advanced into the L1-L2 interspace. After confirmation of needle placement in the epidural space a stimulating lead was inserted and advanced to the T8-T9 vertebral body. Lead placement checked in AP and lateral views. A second needle was inserted advanced into the T12-L1 interspace. Again after confirmation of needle placement in the epidural space a second stimulating lead was inserted and advanced very easily to the T8-T9 vertebral body. Again lead placement was checked in AP and lateral views. Stylets and needles were removed. The leads were secured to the fascia with 2-0 Prolene. The leads were then tunneled to the battery pocket and attached to the generator. Impedances were checked and found to be okay. Both incisions were closed with 2-0 Vicryl followed by 4-0 nylon. A wound VAC was placed over both incisions. The patient was placed in an abdominal binder taken recovery in stable condition. Patient tolerated the procedure well with no complications. Patient was discharged home neurologically intact with good relief of pain symptoms. We will follow-up with this patient in 1 week for wound check and reprogramming. We will follow-up in 2 weeks for suture removal and reprogram again if needed. If patient has any problems or questions she is to call us back in the pain clinic. Condition: stable Disposition: PACU Complications:: None
--- NOTE | 2021-03-07 14:27 | PC.NURSE ---
patient called office c/o severe nausea and heart burn after taking a dose. spoke with provider. order received for Keflex 500mg PO BID #[id number]. pt notified. prescription called in to [facility] per request.
== END 2021-03-06 14:50 | disposition home or self-care (01) ==
LOC: OR 09:08
PROVIDERS: PCP Family Medicine; Visit Provider Anesthesiology
PROC: (CPT 63685; principal; 2021-03-06 10:45)
DX: T85.113A Breakdown (mechanical) of implanted electronic neurostimulator, generator, initial encounter (principal); J45.909 Unspecified asthma, uncomplicated; F32.9 Major depressive disorder, single episode, unspecified; E11.9 Type 2 diabetes mellitus without complications; K21.9 Gastro-esophageal reflux disease without esophagitis; E78.5 Hyperlipidemia, unspecified; I10 Essential (primary) hypertension; D64.9 Anemia, unspecified; M19.90 Unspecified osteoarthritis, unspecified site; Z90.49 Acquired absence of other specified parts of digestive tract; Z83.3 Family history of diabetes mellitus; Z82.49 Family history of ischemic heart disease and other diseases of the circulatory system
CPT/HCPCS: 63685; 63663; 96374; C1778; C1820; J2405

== ENCOUNTER → 2021-03-11 15:43 | Outpatient (POV) | payer BC, SELFPAY ==
[2021-03-11 16:10] VITALS: BP 147/87; PULSE 91; RESP 18; O2SAT 95; BMI 38.5
--- NOTE | 2021-03-11 16:27 | HMH.PAINSOAP ---
[facility] Pain Management SOAP Note Subjective:: Patient is a 65-year-old white female who presents today for follow-up after her spinal cord stimulator implant with [employer] stimulator. She is being treated for degenerative disc disease lumbar spine with lumbar radiculopathy symptoms. The patient did have a malfunctioning stimulator that was recently changed out. She is here today to meet with the [employer] spinal cord stimulator sales representative door to door. Patient's previous device was a new vector stimulator. She does rate her pain a 6 out of 10 today. She does have a wound VAC in place which will be removed today. She has complained of significant itching to the area. She does have some incisional tenderness as well. Review of Systems General: No recent weight changes, no fever, no sleep disturbances Respiratory: No cough, no shortness of air, no recurring pulmonary infections Cardiovascular/peripheral vascular: No chest pain, no palpitations, no edema, no shortness of breath Gastrointestinal: No new onset incontinence, normal bowel movements reported Genitourinary: No new onset incontinence Musculoskeletal: Incisional pain, itching, low back pain Psychiatric: [Normal mood/affect] Neurological: [Denies weakness in extremities], [denies balance issues] Objective:: Physical exam General: Alert and oriented x3, no acute distress, pleasant and cooperative Lungs: Respirations even and unlabored, symmetrical chest expansion Eyes: PERRL Musculoskeletal: Flexion and extension of lumbar [spine] somewhat guarded secondary to pain, [antalgic gait noted] Neurological: Speech clear, no gross sensory deficit Skin: Wound VAC removed, incision with sutures with scant amount of blood, cleaned with chlorhexidine glue applied to incision, redness and scabbing noted around previous type site of wound VAC Assessment:: Degenerative disc disease lumbar spine with lumbar radiculopathy symptoms, left knee pain, degenerative osteoarthritis left knee Plan:: Patient was reprogrammed today with the [employer] spinal cord stimulator sales representative door to door. Wound VAC was removed and glue was applied to the incision sites. She does have scant amount of drainage to her incision. The area was cleaned with chlorhexidine and glue was applied topically to the incision site. There is no edema noted to the site. She does have scabbing areas noted to the previous type area of the wound VAC. She has been encouraged to not touch the area until it is well-healed. She is in agreement. We will see the patient back in 2 weeks for removal of sutures. Patient has been instructed to contact the clinic with any concerns before the next appointment. Dr. Tsang has reviewed this note and agrees with this plan of care. This note was dictated using voice recognition software and make contain errors or omissions. [facility] History I have reviewed the patient's past medical history: Yes Medical History: Reports:: Asthma, Depression, Diabetes Mellitus Type 2, Gastroesophageal Reflux Disease(GERD), Hyperlipidemia, Hypertension Denies:: Cancer, Diabetes Mellitus Type 1, Internal Pacemaker, MRSA, Seizures *Have you ever received a pneumonia vaccine?: Yes *Have you received a flu vaccine this season?: Yes Other Medical History: Reports: Anemia, Arthritis, Other. Denies: Blood Transfusion Reaction Laterality Cases: Bilateral: Other Other Surgeries: Yes: Colonoscopy, EGD, Other (Cervical Fusion, intrathecal pain pump ). No: Pacemaker Amputation: No Fractures: No - *Social History Smoking Status: Never smoker Alcohol Intake: never Substance Use Type: denies use *Occupational Status:: unemployed Housing: house Household Members: none *Travel in the last 8 weeks: None - Psychiatric History Pschychiatric History:: Reports:: Depression Family Hx:: Anemia, Asthma, Cancer, Diabetes, Hypertension, Kidney Disease
== END ==
PROVIDERS: Visit Provider Clinical Nurse Specialist Family Health
DX: M51.16 Intervertebral disc disorders with radiculopathy, lumbar region (principal); M17.12 Unilateral primary osteoarthritis, left knee
CPT/HCPCS: 99212; G0463

== ENCOUNTER → 2021-03-25 11:32 | Outpatient (POV) | payer BC, SELFPAY ==
[2021-03-25 11:44] VITALS: BP 111/70; PULSE 107; RESP 18; O2SAT 95; BMI 34.2
--- NOTE | 2021-03-25 12:30 | HMH.PMPROC ---
- Procedure Date: 03/25/21 Time: 12:30 Anesthesiologist:: Laura Hodgson APRN Complications:: None Pre-procedure Diagnosis:: Degenerative disc disease lumbar spine with lumbar radiculopathy symptoms, left low back pain, status post fall, left knee pain Post-procedure Diagnosis:: Same Indications for Procedure:: Patient is a 65-year-old white female who presents today for follow-up after change of spinal cord stimulator device. She recently had a [employer] spinal cord stimulator implanted. She previously had a new vector stimulator. She also has an intrathecal pain pump. She is at home refill patient. Patient would like an increase due to a recent fall this a.m. She is having a left low back pain. She also reports to be having right shoulder pain. She says that the pain is tolerable, however. The clinic was contacted by her son this a.m. due to the fall. He has asked that we examined the patient and perform any imaging that may be needed. Patient is refusing any imaging at this time. She is here today to meet with the spinal cord stimulator office machines sales representative and to have sutures removed as well. She does have some incisional tenderness. She rates her pain an 8 out of 10 due to the fall. Patient says that she got up around 3 AM to go to the bathroom. She says when trying to get back into the bed she slid to the floor, denying striking her head or any trauma. She says that she sat into the floor and because she was unable to raise to a standing position, she spent the rest of the night in her dog's bed until she was able to contact her family member. The family did advise the patient to go to the emergency room but she did refuse. The patient does not want to go to the emergency room today. Patient does have an intrathecal pump that is currently at 8.5 mg/day. She is requesting an increase. The patient's incision has a small amount of serous drainage at the bottom portion of the incision. Sutures were removed at the top of the incision, but left in place at the lower incision area. Photos of the area were sent to the physician and he did feel the patient does not require any antibiotics at this time. During conversation, the patient is alert and oriented x3. She is complaining of some soreness to her right shoulder and left low back pain. Otherwise, the patient denies any changes. She does feel the stimulator is giving her some relief . Physical exam General: Alert and oriented x3, no acute distress, pleasant and cooperative Lungs: Respirations even and unlabored, symmetrical chest expansion Eyes: PERRL Musculoskeletal: Flexion and extension of lumbar [spine] and right shoulder somewhat guarded secondary to pain, [antalgic gait noted] Neurological: Speech clear, no gross sensory deficit Skin: Sutures removed to anterior aspect of incision, sutures left intact to posterior aspect of incision, small amount serous drainage noted to posterior aspect of incision, no edema noted, scant redness to posterior aspect incision Procedure Details:: Informed consent was obtained and the risk and benefits of the procedure were explained to the patient. Patient was taken to the procedure room where noninvasive monitoring was placed including noninvasive blood pressure cuff and pulse oximeter. Patient's pump was interrogated and was reprogrammed to 8.9 mg/day.. The patient tolerated the procedure well with no complications. Plan and Disposition:: While meeting with the [employer] stimulator office machines sales representative, the patient's [id number] did come into the clinic. She reports that the patient was having significant confusion this a.m. in her home. Patient denies striking her head during the fall. Patient is alert and oriented in the clinic and is refusing any imaging or further consultation. She has been advised to go to the emergency room due to family report of confusion. The patient is not happy, but says she ramos
--- NOTE | 2021-03-27 10:40 | PC.NURSE ---
called in Rx for keflex 500mg BID x 7days per Dr. Tsang order.
== END ==
PROVIDERS: Visit Provider Clinical Nurse Specialist Family Health
DX: M51.16 Intervertebral disc disorders with radiculopathy, lumbar region (principal); M25.562 Pain in left knee; W19.XXXA Unspecified fall, initial encounter; Z45.1 Encounter for adjustment and management of infusion pump
CPT/HCPCS: 62368; 99212; G0463

== ENCOUNTER 2021-03-25 12:12 | Emergency (ER) | payer BC, SELFPAY ==
[2021-03-25] VITALS (10 sets, daily range): BP systolic 87–121; BP diastolic 52–62; PULSE 82–96; RESP 17–31; TEMP 37.1; O2SAT 91–96; BMI 32.1
--- NOTE | 2021-03-25 12:28 | XR_ITS ---
PROCEDURE: XR SHOULDER RT MIN 2V CLINICAL INDICATION: fall COMPARISON: CR XR SHOULDER LT MIN 2V from 03/25/2021 FINDINGS: No fracture or dislocation. No lytic or blastic change. There is normal mineralization. There are mild osteoarthritic changes of the glenohumeral joint. There is some remodeling along the humeral neck medially which may indicate an old fracture. Other findings:None. IMPRESSION: No acute finding with osteoarthritis and possible old humeral neck fracture. Dictated by: Henry Olvera MD 03/25/2021 14:07 Henry Olvera MD in [place] 03/25/2021 14:07
--- NOTE | 2021-03-25 12:28 | CT_ITS ---
PROCEDURE: CT HEAD/BRAIN WO CON CLINICAL INDICATION: fall COMPARISON: CT CT HEAD/BRAIN WO CON from 03/05/2019 TECHNIQUE: Axial images obtained. All CT scans at the facility use one or more dose reduction, viz: automated exposure control, ma/kV adjustment per patient size (including targeted exams where dose is matched to indication, i.e. head), or iterative reconstruction technique. FINDINGS: No midline shift, mass effect, intracranial hemorrhage, hydrocephalus, or extra-axial fluid collection is evident. There is a small hypodensity in the right aspect of the cerebral peduncle region posteriorly not readily apparent on the previous study consistent with a small lacunar infarction age indeterminate measuring approximately 4 mm. The calvarium has an unremarkable appearance. No mastoid effusion. No sinus air-fluid level. IMPRESSION: Small lacunar infarction in the right aspect of the cerebral peduncle posteriorly age indeterminate otherwise negative Dictated by: Henry Olvera MD 03/25/2021 13:30 Henry Olvera MD in [facility] 03/25/2021 13:30
--- NOTE | 2021-03-25 12:28 | XR_ITS ---
PROCEDURE: XR SHOULDER LT MIN 2V CLINICAL INDICATION: fall COMPARISON: CR XR CHEST AP from 12/30/2019 CR XR SHOULDER RT MIN 2V from 03/25/2021 FINDINGS: No acute fracture or dislocation. There is an old humeral neck fracture with mild osteoarthritic changes at the glenohumeral joint and acromioclavicular joint. Along the inferior aspect of the glenoid there is some heterogeneous decreased density. This could be related to an old fracture. Other findings:None. IMPRESSION: Old humeral neck fracture with possible old inferior glenoid fracture with osteoarthritic change. No acute finding Dictated by: Henry Olvera MD 03/25/2021 14:07 Henry Olvera MD in [facility] 03/25/2021 14:07
--- NOTE | 2021-03-25 12:28 | CT_ITS ---
PROCEDURE: CT CERVICAL SPINE WO CON CLINICAL INDICATION: fall COMPARISON: CT CT CERVICAL SPINE WO CON from 03/05/2019 TECHNIQUE: Axial images obtained with sagittal and coronal reformats. All CT scans at the facility use one or more dose reduction, viz: automated exposure control, ma/kV adjustment per patient size (including targeted exams where dose is matched to indication, i.e. head), or iterative reconstruction technique. Axial spiral CT scanning performed of the cervical spine beginning at the base of the skull and continuing to the upper T-spine. 3-D multiplanar reconstruction with 3-D manipulation of volumetric data set in image rendering was completed by the radiologist and/or technologist with the supervision of the radiologist on independent workstation. FINDINGS: Thoracic toe cervical curvature convex left. Degenerative disc disease C5-C6 C6-C7 and C7-T1. No acute fracture or dislocation. [place]clage wires present posteriorly along the spinous processes at C6-C7. IMPRESSION: No acute fracture. Degenerative changes as described above Dictated by: Henry Olvera MD 03/25/2021 13:33 Henry Olvera MD in [facility] 03/25/2021 13:33
--- NOTE | 2021-03-25 12:28 | XR_ITS ---
PROCEDURE: XR PELVIS 1-2V CLINICAL INDICATION: fall COMPARISON: No exams were available for comparison TECHNIQUE: XR Pelvis AP View FINDINGS: No fracture or dislocation is evident. No significant degenerative change. No lytic or blastic change. IMPRESSION: No acute findings. Dictated by: Henry Olvera MD 03/25/2021 14:04 Henry Olvera MD in [facility] 03/25/2021 14:04
--- NOTE | 2021-03-25 12:50 | PC.NURSE ---
Pt to rad.
[2021-03-25 12:56] LABS: Basophils # 0.1 K/mm3 (0-0.2); Basophils % 0.3 % (0.1-2.0); Eosinophils # 0.1 K/mm3 (0.0-0.4); Eosinophils % 0.3 % (0.1-12.0); Hematocrit 41.5 % (37.0-47.0); Hemoglobin 13.3 g/dL (12.2-16.2); Lymphocytes # 0.7 K/mm3 (0.7-4.5); Lymphocytes % 4.3 % (10-50); Mean Corpuscular HGB Conc 32.1 g/dL (31.8-35.4); Mean Corpuscular Hemoglobin 33.3 pg (27.0-31.2); Mean Corpuscular Volume 103.8 fl (81-99); Monocytes # 0.6 K/mm3 (0.1-1.0); Monocytes % 3.5 % (1.7-9.3); Neutrophils # 14.8 K/mm3 (1.8-7.8); Neutrophils % 91.5 % (37.0-80.0); Platelet Count 243 K/mm3 (142-424); Red Cell Distribution Width 13.4 % (11.5-17.5); White Blood Count 16.2 K/mm3 (4.8-10.8)
[2021-03-25 13:00] LABS: MANUAL DIFFERENTIAL MANUAL DIFFERENTIAL (MANUAL DIFF)
[2021-03-25 13:03] LABS: Alanine Aminotransferase 24 U/L (12-78); Albumin/Globulin Ratio 1.3 (1.1-1.8); Alkaline Phosphatase 60 U/L (38-126); Anion Gap 12.7 mEq/L (5-15); Aspartate Amino Transferase 101 U/L (14-36); Bilirubin,Total 0.4 mg/dl (0.2-1.3); Blood Urea Nitrogen 19 mg/dl (7-17); Calcium 9.4 mg/dl (8.4-10.2); Carbon Dioxide 26 mmol/L (22.0-30.0); Chloride 102 mmol/L (98-107); Creatinine Clearance Estimated 45 mL/min (50-200); Estimated Glomerular Filt Rate 30 ml/min (>60); GFR (African American) 37 ML/MIN (>60); Globulin 3.1 g/dL (1.3-3.2); Glucose 128 mg/dl (74-100); Potassium 4.7 mmoL/L (3.5-5.1); Sodium 136 mmol/L (136-145); Total Protein,Serum 7.1 g/dl (6.3-8.2)
--- NOTE | 2021-03-25 13:17 | PC.NURSE ---
pt returned from rad
[2021-03-25 13:22] LABS: Lactic Acid 1.2 mmol/L (0.7-2.1)
[2021-03-25 13:33] LABS: Lymphocytes % 3 % (10-50); Monocytes % 4 % (2-9); Neutrophils % 93 % (42-76); Total Cells Counted 100
[2021-03-25 13:34] LABS: Macrocytosis 1+; Platelet Estimate Normal
--- NOTE | 2021-03-25 14:17 | HMH.EDGENADL ---
ED Disposition Clinical Impression: Fall Qualifiers: Encounter type: initial encounter Qualified Code(s): W19.XXXA - Unspecified fall, initial encounter Disposition: Home, Self-Care Condition on Discharge: Good Additional Instructions: Follow-up to have your labs drawn in 2 days to reassess your renal function. Important to drink plenty of fluids if you are having any confusion, fevers, worsening body aches, or give any other new concerns please return to the emergency department. Referrals: George Jacob MD [Primary Care Provider] - - Critical Care Critical Care Time: No Attestation: On 03/25/21, the high probability of a clinically significant, sudden or life threatening deterioration of the following system(s) required my full and direct attention, intervention and personal management. The time I documented below is in addition to time spent performing reported procedures but includes the following listed in this critical care notation. Medical Decision Making - Medical Records Medical records reviewed: Yes: I reviewed the patient's medical records. - Don Inquiry Pt receiving controlled substance: No Vital Signs: 03/25/21 12:13 03/25/21 12:32 03/25/21 12:45 Temperature 98.7 F Temperature Source Oral Pulse Rate 91 H 94 H Pulse Rate [Left Radial] 96 H Respiratory Rate 20 31 H Blood Pressure 87/58 L 103/57 L Blood Pressure [Right Arm] 94/59 L Blood Pressure Mean Blood Pressure Mean [Right Arm] 70 Blood Pressure Source [Right Arm] Automatic Cuff Blood Pressure Position [Right Arm] Sitting 02 Sat by Pulse Oximetry 93 L 91 L 93 L Oxygen Delivery Method Room Air Nasal Cannula Oxygen Flow Rate (LPM) 2 03/25/21 13:16 03/25/21 13:31 03/25/21 14:13 Temperature Temperature Source Pulse Rate 91 H 89 89 Pulse Rate [Left Radial] Respiratory Rate 22 21 19 Blood Pressure 121/62 94/55 L 104/56 L Blood Pressure [Right Arm] Blood Pressure Mean Blood Pressure Mean [Right Arm] Blood Pressure Source [Right Arm] Blood Pressure Position [Right Arm] 02 Sat by Pulse Oximetry 96 91 L 92 L Oxygen Delivery Method Nasal Cannula Room Air Oxygen Flow Rate (LPM) 2 03/25/21 14:30 03/25/21 15:00 03/25/21 15:30 Temperature Temperature Source Pulse Rate 87 82 Pulse Rate [Left Radial] Respiratory Rate 18 17 Blood Pressure 92/54 L 96/53 L 98/52 L Blood Pressure [Right Arm] Blood Pressure Mean 62 67 62 Blood Pressure Mean [Right Arm] Blood Pressure Source [Right Arm] Blood Pressure Position [Right Arm] 02 Sat by Pulse Oximetry 92 L 92 L 92 L Oxygen Delivery Method Oxygen Flow Rate (LPM) 03/25/21 17:00 Temperature 98.7 F Temperature Source Pulse Rate 82 Pulse Rate [Left Radial] Respiratory Rate 17 Blood Pressure 98/52 L Blood Pressure [Right Arm] Blood Pressure Mean Blood Pressure Mean [Right Arm] Blood Pressure Source [Right Arm] Blood Pressure Position [Right Arm] 02 Sat by Pulse Oximetry Oxygen Delivery Method Room Air Oxygen Flow Rate (LPM) - Lab Data Lab results reviewed: Yes: I reviewed the patient's lab results. Lab Results 03/25/21 12:43: WBC 16.2 H, RBC 4.00 L, Hgb 13.3, Hct 41.5, MCV 103.8 H, MCH 33.3 H, MCHC 32.1, RDW 13.4, Plt Count 243, MPV 9.0, Neut % (Auto) 91.5 H, Lymph % (Auto) 4.3 L, [place] % (Auto) 3.5, Eos % (Auto) 0.3, Baso % (Auto) 0.3, Neut # (Auto) 14.8 H, Lymph # (Auto) 0.7, [place] # (Auto) 0.6, Eos # (Auto) 0.1, Baso # (Auto) 0.1, Total Counted 100, Neutrophils % (Manual) 93 H, Lymphocytes % (Manual) 3 L, Monocytes % (Manual) 4, Platelet Estimate Normal, Macrocytosis 1+ 03/25/21 12:43: Sodium 136, Potassium 4.7, Chloride 102, Carbon Dioxide 26, Anion Gap 12.7, BUN 19 H, Creatinine 1.70 H, Estimated Creat Clear 45, Estimated GFR 30 L, Est GFR ( Amer) 37 L, Glucose 128 H, Calcium 9.4, Total Bilirubin 0.4, AST 101 H, ALT 24, Alkaline Phosphatase 60, Total Protein 7.1, Albumin 4.0, Globulin 3.1, [place]
[2021-03-25 16:21] LABS: Microscopic, Urine URINE MICROSCOPIC (MICROSCOPIC)
[2021-03-25 16:23] LABS: Appearance,Urine CLEAR (Clear); Bilirubin,Urine Negative (Negative); Blood, Urine 3+ (Negative); Color,Urine YELLOW (Yellow); Glucose,Urine (UA) Negative (Negative); Ketones,Urine TRACE (Negative); Leukocyte Esterase,Urine Negative (Negative); Nitrate,Urine Negative (Negative); Protein,Urine TRACE (Negative); Urobilinogen,Urine 0.2 EU/dl (0.2)
[2021-03-25 16:44] LABS: Bacteria,Urine Trace /lpf; WBC,Urine Occasional #/hpf (0-3)
== END 2021-03-25 17:20 | disposition home or self-care (01) ==
PROVIDERS: Emergency Provider Emergency Medicine; PCP Family Medicine
DX: R41.0 Disorientation, unspecified (principal); W01.0XXA Fall on same level from slipping, tripping and stumbling without subsequent striking against object, initial encounter; Y92.013 Bedroom of single-family (private) house as the place of occurrence of the external cause; J45.909 Unspecified asthma, uncomplicated; K21.9 Gastro-esophageal reflux disease without esophagitis; E11.9 Type 2 diabetes mellitus without complications; I10 Essential (primary) hypertension; E78.5 Hyperlipidemia, unspecified; Z88.2 Allergy status to sulfonamides; Z79.899 Other long term (current) drug therapy
CPT/HCPCS: 70450; 72125; 72170; 73030; 80053; 81001; 83605; 85007; 85025; 96365; 99283

== ENCOUNTER → 2021-03-27 09:58 | Outpatient (CLI) | payer BC, SELFPAY ==
[2021-03-27 13:46] LABS: Chloride 102 mmol/L (98-107); Potassium 4.6 mmoL/L (3.5-5.1); Sodium 136 mmol/L (136-145)
[2021-03-27 13:49] LABS: Blood Urea Nitrogen 21 mg/dl (7-17); Estimated Glomerular Filt Rate 56 ml/min (>60); GFR (African American) 68 ML/MIN (>60)
[2021-03-27 13:50] LABS: Anion Gap 13.6 mEq/L (5-15); Calcium 8.5 mg/dl (8.4-10.2); Carbon Dioxide 25 mmol/L (22.0-30.0); Glucose 108 mg/dl (74-100)
== END ==
PROVIDERS: Visit Provider Family Medicine
DX: R29.6 Repeated falls (principal)
CPT/HCPCS: 36415; 80048

== ENCOUNTER 2021-03-30 09:18 | Emergency (ER) | payer BC, SELFPAY ==
[2021-03-30 09:38] VITALS: BP 125/62; PULSE 113; RESP 18; TEMP 36.5; O2SAT 95; BMI 31.1
--- NOTE | 2021-03-30 09:45 | XR_ITS ---
PROCEDURE INFORMATION: Exam: XR Chest Exam date and time: 03/30/2021 9:45 AM Age: 65 years old Clinical indication: Cough; Additional info: Cough and SOB TECHNIQUE: Imaging protocol: XR of the chest. Views: 1 view. COMPARISON: CR XR CHEST AP 12/30/2019 2:02 PM FINDINGS: Tubes, catheters and devices: Intrathecal catheter evident. Lungs: Unremarkable. No consolidation. Pleural spaces: Unremarkable. No pleural effusion. No pneumothorax. Heart/Mediastinum: Stable cardiomegaly. Bones/joints: Unremarkable. IMPRESSION: No acute process.
--- NOTE | 2021-03-30 09:47 | PC.NURSE ---
Called and spoke with margie in RAD to request chest xray
--- NOTE | 2021-03-30 10:10 | HMH.EDGENADL ---
ED Disposition Clinical Impression: Confusion caused by a drug Disposition: Home, Self-Care Condition on Discharge: Good Instructions: Delirium Referrals: George Jacob MD [Primary Care Provider] - - Critical Care Critical Care Time: No Attestation: On 03/30/21, the high probability of a clinically significant, sudden or life threatening deterioration of the following system(s) required my full and direct attention, intervention and personal management. The time I documented below is in addition to time spent performing reported procedures but includes the following listed in this critical care notation. Medical Decision Making - Medical Records Medical records reviewed: Yes: I reviewed the patient's medical records. - Don Inquiry Pt receiving controlled substance: No Vital Signs: 03/30/21 09:38 Temperature 97.7 F Temperature Source Oral Pulse Rate [Right Radial] 113 H Respiratory Rate 18 Blood Pressure [Right Arm] 125/62 Blood Pressure Mean [Right Arm] 83 Blood Pressure Source [Right Arm] Automatic Cuff Blood Pressure Position [Right Arm] Supine 02 Sat by Pulse Oximetry 95 Oxygen Delivery Method Room Air - Lab Data Lab Results 03/30/21 10:09: WBC 5.5, RBC 3.86 L, Hgb 13.0, Hct 39.8, MCV 103.0 H, MCH 33.5 H, MCHC 32.6, RDW 13.2, Plt Count 255, MPV 8.3, Neut % (Auto) 73.1, Lymph % (Auto) 16.0, [place] % (Auto) 8.7, Eos % (Auto) 1.0, Baso % (Auto) 1.2, Neut # (Auto) 4.0, Lymph # (Auto) 0.9, [place] # (Auto) 0.5, Eos # (Auto) 0.1, Baso # (Auto) 0.1 03/30/21 10:09: Sodium 137, Potassium 4.4, Chloride 99, Carbon Dioxide 30, Anion Gap 12.4, BUN 7, Creatinine 0.60, Estimated Creat Clear 76, Estimated GFR 101, Est GFR ( Amer) 122, Glucose 103 H, Calcium 9.5, Total Bilirubin 0.4, AST 49 H, ALT 33, Alkaline Phosphatase 91, Total Protein 7.5, Albumin 4.1, Globulin 3.4 H, Albumin/Globulin Ratio 1.2 03/30/21 10:21: Urine Color Yellow, Urine Appearance Clear, Urine pH 7.0, Ur Specific [place] 1.025, Urine Protein 1+, Urine Glucose (UA) Negative, Urine Ketones 2+, Urine Blood Negative, Urine Nitrate Negative, Urine Bilirubin 1+ A, Urine Urobilinogen 0.2, Ur Leukocyte Esterase Negative, Urine RBC Occasional, Urine WBC Occasional, Ur Squamous Epith Cells None, Urine Bacteria None Result diagrams: 03/30/21 10:09 03/30/21 10:09 Orders (Tests/Meds): ED MEDICATIONS Discontinued Medications Generic Name Dose Route Start Last Admin Trade Name [place] PRN Reason Stop Dose Admin Acetaminophen 650 mg 03/30/21 10:23 03/30/21 10:24 Acetaminophen 325mg Tab PO 03/30/21 10:24 650 mg ONCE ONE Administration - Radiology Data #1 Image(s): Chest Image Reviewed: Yes I reviewed the patient's radiology results, Yes I reviewed the patient's radiology image, Yes I have reviewed radiologist's interpretation Preliminary Findings: Normal/NAD - Reevaluation(s) Time: 11:32 Reevaluation #1: On reevaluation, patient appears to be at baseline. There is no laboratory findings consistent with acute infection or sepsis. Her kidney function appears to have normalized. No significant bacteria in her urinalysis. I do believe the patient's altered mental status appears to be secondary to increased confusion through her pain pump. I did have a discussion with the son who states that the symptoms did start when she had her pain pump revised and they did increase her dose. Her overall demeanor is consistent with that. I do believe she requires modification of her infusion. I do recommend that she follows up with her pain specialist upon discharge to have this revised. I did give strict return precautions for any change in symptoms. Family verbalized understanding. Medical Decision Narrative: 65-year-old female presenting with some confusion over the last few days. I did review the patient's medical records. She has been being treated for urinary tract infection. However she did follow-up with her primary surgeon
[2021-03-30 10:18] LABS: Basophils # 0.1 K/mm3 (0-0.2); Basophils % 1.2 % (0.1-2.0); Eosinophils # 0.1 K/mm3 (0.0-0.4); Hematocrit 39.8 % (37.0-47.0); Lymphocytes # 0.9 K/mm3 (0.7-4.5); Mean Corpuscular HGB Conc 32.6 g/dL (31.8-35.4); Mean Corpuscular Hemoglobin 33.5 pg (27.0-31.2); Mean Platelet Volume 8.3 fl (7.4-10.4); Monocytes # 0.5 K/mm3 (0.1-1.0); Monocytes % 8.7 % (1.7-9.3); Neutrophils % 73.1 % (37.0-80.0); Platelet Count 255 K/mm3 (142-424); Red Blood Count 3.86 M/mm3 (4.20-5.40); Red Cell Distribution Width 13.2 % (11.5-17.5); White Blood Count 5.5 K/mm3 (4.8-10.8)
[2021-03-30 10:25] LABS: Chloride 99 mmol/L (98-107); Potassium 4.4 mmoL/L (3.5-5.1); Sodium 137 mmol/L (136-145)
[2021-03-30 10:27] LABS: Blood Urea Nitrogen 7 mg/dl (7-17)
[2021-03-30 10:28] LABS: Alanine Aminotransferase 33 U/L (12-78); Albumin Level 4.1 g/dl (3.5-5.0); Albumin/Globulin Ratio 1.2 (1.1-1.8); Alkaline Phosphatase 91 U/L (38-126); Anion Gap 12.4 mEq/L (5-15); Aspartate Amino Transferase 49 U/L (14-36); Bilirubin,Total 0.4 mg/dl (0.2-1.3); Calcium 9.5 mg/dl (8.4-10.2); Carbon Dioxide 30 mmol/L (22.0-30.0); Creatinine Clearance Estimated 76 mL/min (50-200); Estimated Glomerular Filt Rate 101 ml/min (>60); GFR (African American) 122 ML/MIN (>60); Globulin 3.4 g/dL (1.3-3.2); Glucose 103 mg/dl (74-100); Total Protein,Serum 7.5 g/dl (6.3-8.2)
[2021-03-30 10:29] LABS: Microscopic, Urine URINE MICROSCOPIC (MICROSCOPIC)
[2021-03-30 10:31] LABS: Appearance,Urine CLEAR (Clear); Blood, Urine Negative (Negative); Color,Urine YELLOW (Yellow); Glucose,Urine (UA) Negative (Negative); Ketones,Urine 2+ (Negative); Leukocyte Esterase,Urine Negative (Negative); Nitrate,Urine Negative (Negative); Protein,Urine 1+ (Negative); Specific Gravity, Urine 1.025 (1.005-1.030); Urobilinogen,Urine 0.2 EU/dl (0.2)
[2021-03-30 10:38] LABS: Bilirubin,Urine 1+ (Negative)
[2021-03-30 10:44] LABS: RBC,Urine Occasional #/hpf (0-3); WBC,Urine Occasional #/hpf (0-3)
[2021-03-30 11:56] VITALS: BP 170/86; PULSE 99; RESP 18; TEMP 37.2; O2SAT 89
== END 2021-03-30 11:56 | disposition home or self-care (01) ==
PROVIDERS: Emergency Provider Emergency Medicine; PCP Family Medicine
DX: R41.82 Altered mental status, unspecified (principal); E11.9 Type 2 diabetes mellitus without complications; K21.9 Gastro-esophageal reflux disease without esophagitis; I10 Essential (primary) hypertension; J45.909 Unspecified asthma, uncomplicated; E78.5 Hyperlipidemia, unspecified; M79.7 Fibromyalgia; Z88.2 Allergy status to sulfonamides
CPT/HCPCS: 71045; 80053; 81001; 85025; 99283

== ENCOUNTER → 2021-04-10 09:44 | Outpatient (POV) | payer BC, SELFPAY ==
[2021-04-10 12:01] VITALS: BP 145/88; PULSE 85; RESP 20; O2SAT 97; BMI 31.7
--- NOTE | 2021-04-10 15:28 | HMH.PAINSOAP ---
[facility] Pain Management SOAP Note Subjective:: Patient has had problems with her incision in her back with some draining. She presents today for evaluation of her incision. Overall her stimulation is doing well. She has had no other signs of infection. No fever she does have some redness however it is currently not draining and she is got no fluctuance and no fluid accumulation over her incision. It is draining clear fluid. Objective:: Alert and oriented x3 no acute distress. She does have an antalgic gait. Motor strength of the lower extremities is 5/5. There is no gross sensory deficit. There is some redness where the sutures were placed. She does have an area at the superior aspect of the incision where there is some redness and tissue exposed. There is no fluctuance there is no swelling and there is no current drainage at this time. Previously when it was drained drained clear fluid. Assessment:: Degenerative disc disease of lumbar spine with bar radiculopathy symptoms with spinal cord stimulator in place with issues with back incision. Plan:: We did have Dr. Mandel more evaluate this incision. His suggestion was to clean it with peroxide and put Steri-Strips over this incision. We will continue to evaluate. Patient has no systemic signs of infection at this time. We will continue to monitor. If anything changes the patient is advised to go to the emergency room to be evaluated. [facility] [place] History Medical History: Reports:: Asthma, Depression, Diabetes Mellitus Type 2, Gastroesophageal Reflux Disease(GERD), Hyperlipidemia, Hypertension Denies:: Cancer, Diabetes Mellitus Type 1, Internal Pacemaker, MRSA, Seizures *Have you ever received a pneumonia vaccine?: Yes *Have you received a flu vaccine this season?: Yes Other Medical History: Reports: Anemia, Arthritis, Other. Denies: Blood Transfusion Reaction Laterality Cases: Bilateral: Other Other Surgeries: Yes: Colonoscopy, EGD, Other (Cervical Fusion, intrathecal pain pump ). No: Pacemaker Amputation: No Fractures: No - *Social History Smoking Status: Never smoker Alcohol Intake: never Substance Use Type: denies use *Occupational Status:: other Housing: house Household Members: none *Travel in the last 8 weeks: None - Psychiatric History Pschychiatric History:: Reports:: Depression Family Hx:: Anemia, Asthma, Cancer, Diabetes, Hypertension, Kidney Disease
== END ==
PROVIDERS: PCP Family Medicine; Visit Provider Anesthesiology
DX: M51.16 Intervertebral disc disorders with radiculopathy, lumbar region (principal); T85.898A Other specified complication of other internal prosthetic devices, implants and grafts, initial encounter
CPT/HCPCS: 99212; G0463

== ENCOUNTER → 2021-04-15 09:38 | Outpatient (POV) | payer BC, SELFPAY ==
[2021-04-15 09:45] VITALS: BP 157/75; PULSE 90; RESP 20; TEMP 36.4; O2SAT 94; BMI 32.1
--- NOTE | 2021-04-15 09:51 | HMH.PAINSOAP ---
[facility] Pain Management SOAP Note Subjective:: Patient is a 65-year-old white female who presents today for follow-up. She recently underwent a change out of her spinal cord stimulator with Dr. Tsang. She now has a [employer] stimulator in place. She does have an incision that has been having frequent drainage. Dr. Tsang was contacted and the patient does report that she had been taking her son's amoxicillin. Dr. Tsang did order the patient amoxicillin for increased drainage at the incision site. The patient says that she will complete her antibiotic therapy at the end of this week. She does rate her pain a 6 out of 10. She does have a dressing to the incision site. She also has an intrathecal pain pump. At last visit in the clinic, the patient did have confusion and was sent to the emergency room. The patient says that it was felt that her confusion was due to the intrathecal pain pump being increased at that time. The family reported the patient to have confusion prior to increase in the pump, however. At any rate, the patient has had the pump turned down and seems to be doing well at this time. She denies any recent fever nausea or vomiting. Review of Systems General: No recent weight changes, no fever, no sleep disturbances Respiratory: No cough, no shortness of air, no recurring pulmonary infections Cardiovascular/peripheral vascular: No chest pain, no palpitations, no edema, no shortness of breath Gastrointestinal: No new onset incontinence, normal bowel movements reported Genitourinary: No new onset incontinence Musculoskeletal: Chronic low back pain Psychiatric: [Normal mood/affect] Neurological: [Denies weakness in extremities], [denies balance issues] Objective:: Physical exam General: Alert and oriented x3, no acute distress, pleasant and cooperative Lungs: Respirations even and unlabored, symmetrical chest expansion Eyes: PERRL Musculoskeletal: Flexion and extension of lumbar [spine] somewhat guarded secondary to pain, [antalgic gait noted] Neurological: Speech clear, no gross sensory deficit Skin: Incision with sutures, scant amount of drainage noted to anterior aspect of incision, scant amount of redness, no edema to site Assessment:: Degenerative disc disease lumbar spine with lumbar radiculopathy symptoms Plan:: Patient appears to be back to baseline. She does have scant amount of drainage to her incision site today. Dr. Tsang did start the patient on amoxicillin for which she will complete at the end of the week. Photos were examined from previous visit with Dr. Tsang, and incision today does appear to be healing appropriately. She does still have sutures intact. She does not have any edema to the area. She has not been wearing her abdominal binder and has been advised to begin wearing the binder. We will follow-up with patient in 1 week for further evaluation of incision site. Of note, the patient felt that the intrathecal therapy during increase was what contributed to her confusion. We will need to keep this in mind during any future intrathecal adjustments. Patient has been instructed to contact the clinic with any concerns before the next appointment. Dr. Tsang has reviewed this note and agrees with this plan of care. This note was dictated using voice recognition software and make contain errors or omissions. [facility] History I have reviewed the patient's past medical history: Yes Medical History: Reports:: Asthma, Depression, Diabetes Mellitus Type 2, Gastroesophageal Reflux Disease(GERD), Hyperlipidemia, Hypertension Denies:: Cancer, Diabetes Mellitus Type 1, Internal Pacemaker, MRSA, Seizures *Have you ever received a pneumonia vaccine?: Yes *Have you received a flu vaccine this season?: Yes Other Medical History: Reports: Anemia, Arthritis, Other. Denies: Blood Transfusion Reaction Laterality Cases: Bilateral: Other Other Surgeries: Yes: Colonoscopy, EGD, Other (Cervical Fusion, intrath
== END ==
PROVIDERS: Visit Provider Clinical Nurse Specialist Family Health
DX: M51.16 Intervertebral disc disorders with radiculopathy, lumbar region (principal)
CPT/HCPCS: 99212; G0463

== ENCOUNTER → 2021-04-22 10:55 | Outpatient (POV) | payer BC, SELFPAY ==
[2021-04-22 11:30] VITALS: BP 125/78; PULSE 83; RESP 18; O2SAT 96; BMI 32.1
--- NOTE | 2021-04-22 11:53 | HMH.PAINSOAP ---
[facility] Pain Management SOAP Note Subjective:: Patient is a pleasant 65-year-old female who comes in today for follow-up and wound check. Patient is currently being treated for degenerative disc disease of the lumbar spine with lumbar radiculopathy symptoms. Patient had a recent [employer] stimulator placement about a month ago. The patient presented a couple weeks ago for follow-up and found to have drainage and swelling at the lumbar incision site, worse at the superior aspect of the incision. She was then started on amoxicillin 500 mg 3 times a day for 7 days and was told to use hydrogen peroxide to clean the wound. Patient states that she has antibiotic sensitivity and is allergic to sulfa drugs. When we saw the patient last week, incision was improving with less drainage and swelling. We did not remove the sutures then. The patient finished her course of antibiotics last Thursday. Today, the patient's incision is still having some drainage and swelling. Patient denies any fever and systemic symptoms. Patient states that her stimulator and palms are doing really well today. She rates her pain today as 7 out of 10. Patient does not want any adjustments to her pain pump. She currently has Dilaudid 25 mg/mL at a rate of 7.2 mg/day with boluses of 3.36 mg/day that is scheduled every 6 hours. Review of Systems General: No recent weight changes, no fever, no sleep disturbances Respiratory: No cough, no shortness of air, no recurring pulmonary infections Cardiovascular/peripheral vascular: No chest pain, no palpitations, no edema, no shortness of breath Gastrointestinal: No new onset incontinence, normal bowel movements reported Genitourinary: No new onset incontinence Musculoskeletal: Low back pain Psychiatric: [Normal mood/affect] Neurological: [Denies weakness in extremities], [denies balance issues] Objective:: Physical exam General: Alert and oriented x3, no acute distress, pleasant and cooperative Lungs: Respirations even and unlabored, symmetrical chest expansion Eyes: PERRL Musculoskeletal: Flexion and extension of lumbar [spine] somewhat guarded secondary to pain, [antalgic gait noted] Neurological: Speech clear, no gross sensory deficit Skin: Superior lumbar incision still has purulent drainage, redness, and swelling. Skin has closed in the inferior aspect of the incision. Assessment:: Degenerative disc disease of lumbar spine with lumbar radiculopathy Plan:: We removed some of the sutures on the inferior aspect of the lumbar incision today. Per Dr. Tsang, we will start the patient on another course of amoxicillin 500 mg 3 times a day for 7 days. The patient will continue to use hydrogen peroxide to clean the wound. We will follow-up with the patient next week for another wound check. Patient has been instructed to contact the clinic with any concerns before the next appointment. Dr. Tsang has reviewed this note and agrees with this plan of care. This note was dictated using voice recognition software and make contain errors or omissions. [facility] History Medical History: Reports:: Asthma, Depression, Diabetes Mellitus Type 2, Gastroesophageal Reflux Disease(GERD), Hyperlipidemia, Hypertension Denies:: Cancer, Diabetes Mellitus Type 1, Internal Pacemaker, MRSA, Seizures *Have you ever received a pneumonia vaccine?: Yes *Have you received a flu vaccine this season?: Yes Other Medical History: Reports: Anemia, Arthritis, Other. Denies: Blood Transfusion Reaction Laterality Cases: Bilateral: Other Other Surgeries: Yes: Colonoscopy, EGD, Other (Cervical Fusion, intrathecal pain pump ). No: Pacemaker Amputation: No Fractures: No - *Social History Smoking Status: Never smoker Alcohol Intake: never Substance Use Type: denies use *Occupational Status:: unemployed Housing: house Household Members: none *Travel in the last 8 weeks: None - Psychiatric History Pschychiatric History:: Reports:: Depression
== END ==
PROVIDERS: Visit Provider Clinical Nurse Specialist Family Health
DX: M51.16 Intervertebral disc disorders with radiculopathy, lumbar region (principal); Z45.1 Encounter for adjustment and management of infusion pump
CPT/HCPCS: 62368; 99212; G0463

== ENCOUNTER → 2021-04-30 10:28 | Outpatient (POV) | payer BC, SELFPAY ==
[2021-04-30 10:43] VITALS: BP 140/77; PULSE 88; RESP 18; O2SAT 97; BMI 32.1
--- NOTE | 2021-04-30 10:44 | HMH.PAINSOAP ---
[facility] Pain Management SOAP Note Subjective:: Patient is a pleasant 65-year-old female who comes in here today for 1 week follow-up and wound check. Patient is currently being treated for degenerative disc disease of the lumbar spine with lumbar radiculopathy symptoms. Patient recently had a [employer] stimulator placement about a month ago. When we last saw this patient last week, she was having some drainage in the superior aspect of her surgical incision. Patient denies any fever and systemic symptoms then. Patient was started on a 7-day course of amoxicillin 500 mg 3 times a day, she finished her antibiotics on Thursday. Today, we are removing the rest of her sutures. There is some light drainage at the inferior aspect of her surgical site but no erythema and swelling. Patient still denies any fever or systemic symptoms. Patient says her stimulator and pain pump are doing really well and does not need any adjustments today. She currently has Dilaudid 25 mg/mL at a rate of 7.2 mg/day with PTC boluses of 3.36 mg/day every 6 hours. She rates her pain as 5 out of 10 today. Her Don number is [phone] with an active morphine equivalent of 0. Drug screens have been reviewed and appropriate. Review of Systems General: No recent weight changes, no fever, no sleep disturbances Respiratory: No cough, no shortness of air, no recurring pulmonary infections Cardiovascular/peripheral vascular: No chest pain, no palpitations, no edema, no shortness of breath Gastrointestinal: No new onset incontinence, normal bowel movements reported Genitourinary: No new onset incontinence Musculoskeletal: Low back pain Psychiatric: [Normal mood/affect] Neurological: [Denies weakness in extremities], [denies balance issues] Objective:: Physical exam General: Alert and oriented x3, no acute distress, pleasant and cooperative Lungs: Respirations even and unlabored, symmetrical chest expansion Eyes: PERRL Musculoskeletal: Flexion and extension of lumbar [spine] somewhat guarded secondary to pain, [antalgic gait noted] Skin: Surgical site is healing well. There is slight drainage in the inferior aspect of the surgical site but it does not look purulent. There is no erythema or swelling. Neurological: Speech clear, no gross sensory deficit Assessment:: Degenerative disc disease of the lumbar spine with lumbar radiculopathy symptoms. Plan:: We remove all of the sutures from the surgical site today. We will put Steri-Strips on the surgical sites. Patient surgical wound looks better today and he is healing well. There is slight drainage in the inferior aspect of the surgical site but it does not look purulent. There is no erythema and swelling. I have advised the patient to keep putting clean dressing on the wound. We would like to see the patient for 1 week follow-up. Patient has been instructed to contact the clinic with any concerns before the next appointment. Dr. Tsang has reviewed this note and agrees with this plan of care. This note was dictated using voice recognition software and make contain errors or omissions. [facility] History Medical History: Reports:: Asthma, Depression, Diabetes Mellitus Type 2, Gastroesophageal Reflux Disease(GERD), Hyperlipidemia, Hypertension Denies:: Cancer, Diabetes Mellitus Type 1, Internal Pacemaker, MRSA, Seizures *Have you ever received a pneumonia vaccine?: Yes *Have you received a flu vaccine this season?: Yes Other Medical History: Reports: Anemia, Arthritis, Other. Denies: Blood Transfusion Reaction Laterality Cases: Bilateral: Other Other Surgeries: Yes: Colonoscopy, EGD, Other (Cervical Fusion, intrathecal pain pump ). No: Pacemaker Amputation: No Fractures: No - *Social History Smoking Status: Never smoker Alcohol Intake: never Substance Use Type: denies use *Occupational Status:: unemployed Housing: house Household Members: none *Travel in the last 8 weeks: [facility]
== END ==
PROVIDERS: Visit Provider Clinical Nurse Specialist Family Health
DX: M51.16 Intervertebral disc disorders with radiculopathy, lumbar region (principal)
CPT/HCPCS: 99212; G0463

== ENCOUNTER → 2021-05-07 10:34 | Outpatient (POV) | payer BC, SELFPAY ==
[2021-05-07 10:45] VITALS: BP 170/80; PULSE 74; RESP 18; O2SAT 96; BMI 34.7
--- NOTE | 2021-05-07 11:27 | HMH.PAINSOAP ---
[facility] Pain Management SOAP Note Subjective:: Patient is a pleasant 65-year-old female who comes in here today for a 1 week follow-up and wound check. Patient is going being treated for degenerative disc disease of lumbar spine with lumbar radiculopathy symptoms. Patient recently had a [employer] stimulator placement about a month ago. When we last saw this patient last week, her incision was healing well with a little bit of serosanguineous drainage in the inferior aspect of the incision. There is no erythema, edema, and fever. We did not extend her antibiotic course last week. We also removed all of her sutures last week and steri-striped the incision. Today, patient says there is still some drainage in the incision. Patient is not complaining of any fever. Patient says that she still using hydrogen peroxide to clean the wound and changes the dressing every day with a clean gauze. Patient says her stimulator and pain pump are doing really well and she does not need any adjustments today. She currently has Dilaudid 25 mg/mL at a rate of 7.2 mg/day with PTC boluses of 3.36 mg/day every 6 hours. She rates her pain today as 7 out of 10. Her Don is [phone] with a morphine equivalent of 0. Drug screens have been reviewed and appropriate. Review of Systems General: No recent weight changes, no fever, no sleep disturbances Respiratory: No cough, no shortness of air, no recurring pulmonary infections Cardiovascular/peripheral vascular: No chest pain, no palpitations, no edema, no shortness of breath Gastrointestinal: No new onset incontinence, normal bowel movements reported Genitourinary: No new onset incontinence Musculoskeletal: Low back pain Psychiatric: [Normal mood/affect] Neurological: [Denies weakness in extremities], [denies balance issues] Objective:: Physical exam General: Alert and oriented x3, no acute distress, pleasant and cooperative Lungs: Respirations even and unlabored, symmetrical chest expansion Eyes: PERRL Musculoskeletal: Flexion and extension of [lumbar] [spine] somewhat guarded secondary to pain, [antalgic gait noted] Skin: There is purulent drainage in the inferior aspect of the surgical site. There is some erythema around the surgical site. There is no edema. Neurological: Speech clear, no gross sensory deficit Assessment:: Degenerative disc disease of lumbar spine with lumbar radiculopathy symptoms Plan:: There is purulent drainage and erythema in the inferior aspect of the surgical site. I talked to Dr. Tsang and he wants to start the patient on amoxicillin 500 mg 3 times a day for 7 days. He also would like to obtain a CBC today. Patient will follow up with Dr. Tsang and Dr. Patton next Thursday. I advised the patient to keep changing the dressing every day. Patient has been instructed to contact the clinic with any concerns before the next appointment. Dr. Tsang has reviewed this note and agrees with this plan of care. This note was dictated using voice recognition software and make contain errors or omissions. [facility] History Medical History: Reports:: Asthma, Depression, Diabetes Mellitus Type 2, Gastroesophageal Reflux Disease(GERD), Hyperlipidemia, Hypertension Denies:: Cancer, Diabetes Mellitus Type 1, Internal Pacemaker, MRSA, Seizures *Have you ever received a pneumonia vaccine?: Yes *Have you received a flu vaccine this season?: Yes Other Medical History: Reports: Anemia, Arthritis, Other. Denies: Blood Transfusion Reaction Laterality Cases: Bilateral: Other Other Surgeries: Yes: Colonoscopy, EGD, Other (Cervical Fusion, intrathecal pain pump ). No: Pacemaker Amputation: No Fractures: No - *Social History Smoking Status: Never smoker Alcohol Intake: never Substance Use Type: denies use *Occupational Status:: unemployed Housing: house Household Members: none *Travel in the last 8 weeks: None - Psychiatric History Pschychiatric History:: Reports:: Depression F
[2021-05-07 12:25] LABS: Basophils % 0.8 % (0.1-2.0); Eosinophils # 0.2 K/mm3 (0.0-0.4); Eosinophils % 3.7 % (0.1-12.0); Hematocrit 37.5 % (37.0-47.0); Lymphocytes # 1.1 K/mm3 (0.7-4.5); Lymphocytes % 22.7 % (10-50); Mean Corpuscular HGB Conc 32.1 g/dL (31.8-35.4); Mean Corpuscular Hemoglobin 32.6 pg (27.0-31.2); Mean Corpuscular Volume 101.4 fl (81-99); Mean Platelet Volume 7.5 fl (7.4-10.4); Monocytes # 0.3 K/mm3 (0.1-1.0); Monocytes % 5.8 % (1.7-9.3); Neutrophils # 3.2 K/mm3 (1.8-7.8); Platelet Count 247 K/mm3 (142-424); Red Cell Distribution Width 13.6 % (11.5-17.5); White Blood Count 4.7 K/mm3 (4.8-10.8)
== END ==
PROVIDERS: Visit Provider Clinical Nurse Specialist Family Health
DX: M51.16 Intervertebral disc disorders with radiculopathy, lumbar region (principal)
CPT/HCPCS: 36415; 85025; 99212; G0463

== ENCOUNTER → 2021-05-15 10:37 | Outpatient (POV) | payer BC, SELFPAY ==
[2021-05-15 12:17] VITALS: BP 165/88; PULSE 86; RESP 20; TEMP 36.4; O2SAT 96; BMI 34.9
--- NOTE | 2021-05-15 12:46 | HMH.PAINSOAP ---
[facility] Pain Management SOAP Note Subjective:: Patient is a pleasant 65-year-old white female who we have been following for infected surgical incision. She had a [employer] spinal cord stimulator placed and her incision adjacent to the spine is draining yellowish-greenish fluid in the inferior aspect of the incision. This is right next to her pump. There appears to be a tract now to her intrathecal pain pump reservoir. Her incision is not healing after multiple rounds of antibiotics over the last month. She is also been cleansing it with hydrogen peroxide and intensive wound care management with dressing changes. Patient has a significant subcutaneous infection which is now tracked to the intrathecal pain pump. This infection appears to have started at the incision of the stimulator leads. Since she does have tracking to the pump and infection of the stimulator she will need urgent removal of stimulator system and pain pump system to prevent septicemia and meningitis. I have had Dr. Farley more look at this incision. He is scheduling her for surgery on Thursday which is his first available opening. Objective:: Alert and oriented x3 no acute distress. The incision is not red it is just draining a yellowish-greenish fluid. Then she does and does track to the pain pump. Patient has no other signs of systemic infection. She is afebrile her white count is normal. There is no swelling. There is no increased pain. She does have an antalgic gait which is normal for her. Motor strength of the lower extremities is 5/5. There is no gross sensory deficit. Assessment:: Degenerative disc disease of lumbar spine with lumbar radiculopathy symptoms with infection of the spinal cord stimulator incision which is track to the intrathecal pain pump. Plan:: She is scheduled for removal of her intrathecal pain pump system and spinal cord stimulator system on Thursday by Dr. Patton. This will be done in [place]. We will place her on oral narcotics and antibiotics postoperatively. The patient does want her pain pump replaced so we will reassess her in 6 weeks after explant. [facility] History Medical History: Reports:: Asthma, Depression, Diabetes Mellitus Type 2, Gastroesophageal Reflux Disease(GERD), Hyperlipidemia, Hypertension Denies:: Cancer, Diabetes Mellitus Type 1, Internal Pacemaker, MRSA, Seizures *Have you ever received a pneumonia vaccine?: Yes *Have you received a flu vaccine this season?: Yes Other Medical History: Reports: Anemia, Arthritis, Other. Denies: Blood Transfusion Reaction Laterality Cases: Bilateral: Other Other Surgeries: Yes: Colonoscopy, EGD, Other (Cervical Fusion, intrathecal pain pump ). No: Pacemaker Amputation: No Fractures: No - *Social History Smoking Status: Never smoker Alcohol Intake: never Substance Use Type: denies use *Occupational Status:: retired Housing: house Household Members: none *Travel in the last 8 weeks: None - Psychiatric History Pschychiatric History:: Reports:: Depression Family Hx:: Anemia, Asthma, Cancer, Diabetes, Hypertension, Kidney Disease
== END ==
PROVIDERS: PCP Family Medicine; Visit Provider Anesthesiology
DX: M51.16 Intervertebral disc disorders with radiculopathy, lumbar region (principal); T85.79XA Infection and inflammatory reaction due to other internal prosthetic devices, implants and grafts, initial encounter; Z45.1 Encounter for adjustment and management of infusion pump
CPT/HCPCS: 99212; G0463

== ENCOUNTER → 2021-05-16 10:52 | Outpatient (CLI) | payer BC, SELFPAY ==
[2021-05-16 11:32] LABS: Basophils # 0.1 K/mm3 (0-0.2); Basophils % 0.5 % (0.1-2.0); Eosinophils # 0.2 K/mm3 (0.0-0.4); Eosinophils % 1.6 % (0.1-12.0); Hematocrit 39.4 % (37.0-47.0); Hemoglobin 12.7 g/dL (12.2-16.2); Mean Corpuscular HGB Conc 32.3 g/dL (31.8-35.4); Mean Corpuscular Hemoglobin 33.1 pg (27.0-31.2); Mean Corpuscular Volume 102.4 fl (81-99); Mean Platelet Volume 7.8 fl (7.4-10.4); Monocytes # 0.4 K/mm3 (0.1-1.0); Monocytes % 4.6 % (1.7-9.3); Neutrophils % 83.3 % (37.0-80.0); Platelet Count 239 K/mm3 (142-424); Red Blood Count 3.85 M/mm3 (4.20-5.40); Red Cell Distribution Width 13.9 % (11.5-17.5); White Blood Count 9.6 K/mm3 (4.8-10.8)
[2021-05-16 12:35] LABS: Anion Gap 13.4 mEq/L (5-15); Blood Urea Nitrogen 13 mg/dl (7-17); Calcium 9.1 mg/dl (8.4-10.2); Carbon Dioxide 27 mmol/L (22.0-30.0); Chloride 100 mmol/L (98-107); Estimated Glomerular Filt Rate 72 ml/min (>60); GFR (African American) 87 ML/MIN (>60); Glucose 94 mg/dl (74-100); Potassium 4.4 mmoL/L (3.5-5.1); Sodium 136 mmol/L (136-145)
== END ==
PROVIDERS: PCP Family Medicine; Visit Provider Anesthesiology
DX: Z01.812 Encounter for preprocedural laboratory examination (principal); Z11.52 Encounter for screening for COVID-19
CPT/HCPCS: 36415; 80048; 85025; C9803; U0003; U0005

== ENCOUNTER → 2021-05-23 11:04 | Outpatient (POV) | payer MEDICARE, SELFPAY ==
[2021-05-23 11:14] VITALS: BP 141/80; PULSE 84; RESP 18; O2SAT 96; BMI 34.4
--- NOTE | 2021-05-23 12:06 | HMH.PAINSOAP ---
[facility] Pain Management SOAP Note Subjective:: Patient is a 65-year-old white female who presents today for follow-up she was seen in the clinic on 05/15/2021 with expla of spinal cord stimulator and intrathecal pain pump due to infection. She continued to have drainage and an open wound to the intrathecal pump site. The patient, as resort, did have the pump and stimulator removed. She is here today for follow-up. She does have 2 PABLITO drains that she does have a family member emptying daily. The family member does report that she is having more drainage from the left side drain than the right. Ms. Vega was given oral medications for pain management due to removal of the pump. She was started on oxycodone. Unfortunately, the pharmacy did not have the medication available and she was only able to get a 23-day prescription. She does say she is feeling well, but is having worsening pain at this time due to removal pump. Review of Systems General: No recent weight changes, no fever, no sleep disturbances Respiratory: No cough, no shortness of air, no recurring pulmonary infections Cardiovascular/peripheral vascular: No chest pain, no palpitations, no edema, no shortness of breath Gastrointestinal: No new onset incontinence, normal bowel movements reported Genitourinary: No new onset incontinence Musculoskeletal: Continued low back pain Psychiatric: [Normal mood/affect] Neurological: [Denies weakness in extremities], [denies balance issues] Integumentary: Incision sites itching Objective:: Physical exam General: Alert and oriented x3, no acute distress, pleasant and cooperative Lungs: Respirations even and unlabored, symmetrical chest expansion Eyes: PERRL Musculoskeletal: Flexion and extension of lumbar [spine] somewhat guarded secondary to pain, [antalgic gait noted] Neurological: Speech clear, no gross sensory deficit Skin: Incision is well approximated, no redness noted to site. Sutures intact. Left PABLITO drain with 15 mL of serous drainage, right PABLITO drain with minimal serous drainage, mild edema noted to left incision Assessment:: Degenerative disc disease lumbar spine with lumbar radiculopathy symptoms Plan:: Patient will continue on her oral medications until she is able to undergo implant of intrathecal pump. She will need to wait at least 6 weeks postoperative before consideration of reimplant. She does not want to have the stimulator reimplanted. We will see the patient back in 1 week for likely removal of both PABLITO drains. Dr. Tsang was informed of the patient and it was discussed today. Patient was given oxycodone 20 mg to take 3 tablets 3 times daily. Risks and benefits of the medication have been explained in detail to the patient. The patient does understand the risk of dependence on the medication when given over a prolonged period. Patient has been advised of risks of oversedation with the prescribed medication. Narcan has been offered to the paitent in the event of oversedation. Patient has been advised that a family member should also be educated regarding administration of Narcan. The patient has been advised to consult with his/her primary care provider and pharmacist regarding drug-drug interaction of medications currently prescribed. Patient has been prescribed a controlled substance after being counseled on the medication, medication safety, and possible side effects. LUIS report has been obtained and reviewed prior to prescription and found to be appropriate. Opioid contract was reviewed and signed by the patient, and that they have agreed to all of the terms set forth by our compliance program. Patient has been instructed to contact the clinic with any concerns before the next appointment. Dr. Tsang has reviewed this note and agrees with this plan of care. This note was dictated using voice recognition software and make contain errors or omissions. [facility] History I have reviewed the
== END ==
PROVIDERS: Visit Provider Clinical Nurse Specialist Family Health
DX: M51.16 Intervertebral disc disorders with radiculopathy, lumbar region (principal)
CPT/HCPCS: 99212; G0463

== ENCOUNTER → 2021-05-30 08:48 | Outpatient (POV) | payer MEDICARE, SELFPAY ==
[2021-05-30 09:01] VITALS: BP 145/74; PULSE 106; RESP 18; O2SAT 95; BMI 32.1
--- NOTE | 2021-05-30 09:32 | HMH.PAINSOAP ---
[facility] Pain Management SOAP Note Subjective:: Patient is a 66-year-old who presents today for follow-up. She recently had an intrathecal pain pump and spinal cord stimulator explant on 05/15/2021. She continues to have PABLITO drains noted to the right and left incision. She is here today for follow-up. She does states she is having increased pain. She is inquiring the reason Narcan was ordered for her. She is currently taking oral medications due to explant of intrathecal pump. The patient is very adamant that she does not want the pump implanted once she is able to undergo surgery again. She is currently on oxycodone 20 mg 3-4 times daily as needed pain. This is not giving her much relief. She also gets pregabalin 100 mg 1 tablet p.o. 3 times daily as well as diazepam 5 mg 1 tablet p.o. 3 times daily. Patient was advised today due to high morphine equivalent that it is protocol to order Narcan for patients. [facility] #[id number] has been reviewed and is appropriate. She does report to be having burning sensation to the left low back incision. The patient does report that she does have a family member that is helping with dressings and emptying of PABLITO drains. Patient does report that she had has had more drainage from the right PABLITO drain in comparison to the left. The drainage from the left PABLITO drain has been dark blood according to the patient.. The patient says that she did have clots from the left PABLITO drain. The right PABLITO drain has had a pink-tinged drainage. She does report to be continuing to wear the abdominal binder. Patient does have sutures intact. She says that she has been very careful with any activity due to pain. Today, the patient does rate her pain a 7 out of 10. Patient denies any fever chills, nausea, or vomiting. Patient denies any diarrhea. She has had multiple rounds of antibiotics. Patient reports she did not tolerate antibiotics well in the past. In the past as well, she did admit to not completing the antibiotic therapy due to GI upset. Review of Systems General: No recent weight changes, no fever, no sleep disturbances Respiratory: No cough, no shortness of air, no recurring pulmonary infections Cardiovascular/peripheral vascular: No chest pain, no palpitations, no edema, no shortness of breath Gastrointestinal: No new onset incontinence, normal bowel movements reported Genitourinary: No new onset incontinence Musculoskeletal: Low back pain Psychiatric: [Normal mood/affect] Neurological: [Denies weakness in extremities], [denies balance issues] Integumentary: Left incision burning sensation Objective:: Physical exam General: Alert and oriented x3, no acute distress, pleasant and cooperative Lungs: Respirations even and unlabored, symmetrical chest expansion Eyes: PERRL Musculoskeletal: Flexion and extension of lumbar [spine] somewhat guarded secondary to pain, [antalgic gait noted] Neurological: Speech clear, no gross sensory deficit Skin: Left low back incision?PABLITO drain intact sanguinous drainage 5 mL noted to drain medial aspect of incision open. Sanguinous drainage noted. Sutures not intact to medial aspect of incision. With generalized edema to the area. No redness to left incision. Right low back incision?right PABLITO drain?serosanguineous drainage 5 mL noted, sutures intact, no redness, no drainage, no edema to right incision Assessment:: Degenerative disc disease lumbar spine with lumbar radiculopathy symptoms Plan:: Dr. Tsang did review the incision today. He was notified the patient is not currently on antibiotic therapy. The patient is not having any fever, chills, nausea, vomiting, or diarrhea. She does have an open area to the medial aspect of the left low back incision. There is concerned that the sutures have broken open. Dr. Tsang would like to see the patient in the clinic this upcoming week so that he can better assess and evaluate the incision site. We will seek a wound consult
== END ==
PROVIDERS: Visit Provider Clinical Nurse Specialist Family Health
DX: M51.16 Intervertebral disc disorders with radiculopathy, lumbar region (principal)
CPT/HCPCS: 99212; G0463

== ENCOUNTER → 2021-06-05 10:33 | Outpatient (POV) | payer MEDICARE, SELFPAY ==
[2021-06-05 10:47] VITALS: BP 156/57; PULSE 87; RESP 20; O2SAT 96; BMI 32.4
--- NOTE | 2021-06-05 11:49 | HMH.PAINSOAP ---
[facility] Pain Management SOAP Note Subjective:: This patient is a pleasant 66-year-old white female who had explant of her spinal cord stimulator and intrathecal pain pump for infection. She is having a dehiscence of one of her wounds. She still has some increasing pain. We will need to take her back to the OR on Thursday for an I&D and reclosure of her dehiscence. PABLITO drains are in place however they have not been draining very much. We will take the PABLITO drains out when we closed her wounds. She does well with oxycodone 20 mg 6 times a day. This keeps her pain under control and keeps her functional. We will increase her dose to oxycodone 20 mg 6 times a day. We will write a new prescription today. Don and drug screen are all appropriate Don [id number]. Objective:: Alert and oriented x3 no acute distress. Patient does have an antalgic gait. Motor strength of the lower extremities is 5/5. There is no gross sensory deficit. Wounds do not appear to be infected. The pump incision is starting to dehisce so we will need reclosure. There is some redness however there is no drainage. Assessment:: Degenerative disc disease of lumbar spine with lumbar radiculopathy symptoms with wound dehiscence after explant of intrathecal pain pump and spinal cord stimulator Plan:: We will plan on taking her back to the OR on Thursday for reclosure of her wound dehiscence. We will also reorder her oxycodone 20 mg 1 tablet 6 times a day today. [facility] History Medical History: Reports:: Asthma, Depression, Diabetes Mellitus Type 2, Gastroesophageal Reflux Disease(GERD), Hyperlipidemia, Hypertension Denies:: Cancer, Diabetes Mellitus Type 1, Internal Pacemaker, MRSA, Seizures *Have you ever received a pneumonia vaccine?: Yes *Have you received a flu vaccine this season?: Yes Other Medical History: Reports: Anemia, Arthritis, Other. Denies: Blood Transfusion Reaction Laterality Cases: Bilateral: Other Other Surgeries: Yes: Colonoscopy, EGD, Other (Cervical Fusion, intrathecal pain pump ). No: Pacemaker Amputation: No Fractures: No - *Social History Smoking Status: Never smoker Alcohol Intake: never Substance Use Type: denies use *Occupational Status:: retired Housing: house Household Members: none *Travel in the last 8 weeks: None - Psychiatric History Pschychiatric History:: Reports:: Depression Family Hx:: Anemia, Asthma, Cancer, Diabetes, Hypertension, Kidney Disease
[2021-06-05 12:34] LABS: Basophils % 0.6 % (0.1-2.0); Eosinophils # 0.2 K/mm3 (0.0-0.4); Eosinophils % 2.9 % (0.1-12.0); Hematocrit 35.2 % (37.0-47.0); Hemoglobin 11.2 g/dL (12.2-16.2); Lymphocytes # 1.3 K/mm3 (0.7-4.5); Mean Corpuscular HGB Conc 31.9 g/dL (31.8-35.4); Mean Corpuscular Hemoglobin 33.7 pg (27.0-31.2); Mean Corpuscular Volume 105.7 fl (81-99); Mean Platelet Volume 8.1 fl (7.4-10.4); Monocytes # 0.4 K/mm3 (0.1-1.0); Monocytes % 6.1 % (1.7-9.3); Neutrophils # 4.9 K/mm3 (1.8-7.8); Neutrophils % 71.4 % (37.0-80.0); Platelet Count 255 K/mm3 (142-424); Red Blood Count 3.33 M/mm3 (4.20-5.40); Red Cell Distribution Width 14.6 % (11.5-17.5); White Blood Count 6.9 K/mm3 (4.8-10.8)
[2021-06-05 13:54] LABS: Chloride 103 mmol/L (98-107); Sodium 132 mmol/L (136-145)
[2021-06-05 13:55] LABS: Potassium 4.6 mmoL/L (3.5-5.1)
[2021-06-05 13:57] LABS: Anion Gap 10.6 mEq/L (5-15); Blood Urea Nitrogen 16 mg/dl (7-17); Carbon Dioxide 23 mmol/L (22.0-30.0); Creatinine Clearance Estimated 76 mL/min (50-200); Estimated Glomerular Filt Rate 63 ml/min (>60); GFR (African American) 76 ML/MIN (>60)
[2021-06-05 13:58] LABS: Glucose 85 mg/dl (74-100)
== END ==
PROVIDERS: PCP Family Medicine; Visit Provider Clinical Nurse Specialist Family Health
DX: M51.16 Intervertebral disc disorders with radiculopathy, lumbar region (principal); T81.31XA Disruption of external operation (surgical) wound, not elsewhere classified, initial encounter; Z01.812 Encounter for preprocedural laboratory examination
CPT/HCPCS: 36415; 80048; 85025; 99212; C9803; G0463; U0003; U0005

== ENCOUNTER 2021-06-07 11:19 | Day surgery (SDC) | payer MEDICARE, SELFPAY ==
[2021-06-06 11:20] VITALS: BMI 32.4
[2021-06-07] VITALS (8 sets, daily range): BP systolic 119–157; BP diastolic 58–87; PULSE 54–93; RESP 16–18; TEMP 36.4–36.8; O2SAT 92–100
--- NOTE | 2021-06-07 12:56 | P.PN_ITS ---
[facility] Anesthesia Checklist - Patient Identification Patient Identification: Arm Band - Structural Data Admitted From: Home Planned Operative Procedure/s: I&D and Reclosure of Wound Dehiscence Consent for Planned Operative Procedure(s) Verified: Yes Verified Documents: Surgical Consent, History and Physical - NPO Status Verified Time NPO: 00:00 - Additional verifications Anesthesia Reactions: No Hx Blood Transfusions: No Blood Transfusion Reaction: No - Airway Assessment C-Spine Mobility Assessed: Yes (mp2) TMJ Mobility Assessed: Yes Dentition: Poor Dentition - Neurological Assessment Level of Consciousness: Awake, Alert - Anesthesia Plan Anesthesia Risk discussed: Yes Anesthesia Plan: Verified ASA Class: III Anesthesia Type: General [facility] History I have reviewed the patient's past medical history: Yes Medical History: Reports:: Asthma, Depression, Gastroesophageal Reflux Disease(GERD), Hyperlipidemia, Hypertension Denies:: Cancer, Diabetes Mellitus Type 1, Diabetes Mellitus Type 2, Internal Pacemaker, MRSA, Seizures *Have you ever received a pneumonia vaccine?: Yes *Have you received a flu vaccine this season?: Yes Other Medical History: Reports: Anemia, Arthritis, Other. Denies: Blood Transfusion Reaction Anesthesia experience/problems:: nac Laterality Cases: Bilateral: Other Other Surgeries: Yes: Colonoscopy, EGD, Other (Cervical Fusion, intrathecal pain pump ). No: Pacemaker Amputation: No Fractures: No - *Social History Last grade of school completed: High school graduate Smoking Status: Never smoker Alcohol Intake: never Substance Use Type: denies use *Occupational Status:: retired Housing: house Household Members: none *Travel in the last 8 weeks: None - Psychiatric History Pschychiatric History:: Reports:: Depression Family Hx:: Asthma, Cancer, Diabetes, Kidney Disease
--- NOTE | 2021-06-07 14:09 | HMH.ANESI ---
[facility] Anesthesia Record Part I Intake, IV Amount: 1,000 Estimated blood loss (mL): 25 Urine output (mL): 0 Blood Pressure: 153/87 SaO2: 92 Pulse Rate: 93 Respiratory Rate: 16 Temperature: 97.5 F Patient is:: Drowsy, Stable Stable to PACU at:: 14:05
--- NOTE | 2021-06-07 14:23 | HMH.OPNOTE ---
Date of procedure: 06/07/21 Pre-op Diagnosis:: Wound infection and dehiscence from previous removal of spinal cord stimulator and pain pump Post-op Diagnosis:: Same Procedure performed:: I&D and closure of previous incisions from removal of spinal cord stimulator and pain pump. Surgeon:: Marty Tsang MD SALES REPRESENTATIVE SALES MANAGER:: Shabbir Calderon Anesthesia: GETA Estimated blood loss (mL): 50 Clinical Note:: This patient is a pleasant 66-year-old white female who had removal of her intrathecal pain pump and spinal cord stimulator for infection. This was done about [address] Miguelito guzmán. She has returned with wound dehiscence of her previous pump incision. The wound continuously drains. We will take her back to the OR for I&D and closure of her previous incisions from removal of her pain pump and stimulator. Operative findings:: none Operative note:: Informed consent was obtained the risk and benefits of the procedure were explained to the patient. The patient was taken to the operating room placed prone on the procedure table. Both incisions were opened up and irrigated with vancomycin antibiotic solution. There were several clots pulled out of her pump incision. We did irrigate and dissect out some skin and subcutaneous tissues. After irrigating both incisions we reclosed both incisions with 2-0 Vicryl and 0 silk and 4-0 nylon. Both incisions approximated very well. A pressure dressing was placed and the patient was placed in an abdominal binder. The patient tolerated the procedure well with no complications. We will follow-up with this patient on Thursday to check her incisions. We will also follow-up on Thursday. She will be continued on postop antibiotics. Condition: stable Disposition: PACU Complications:: None
[2021-06-09 08:34] VITALS: BP 124/58; PULSE 72; TEMP 36.4
--- NOTE | 2021-06-09 08:34 | HMH.ANESII ---
[facility] Anesthesia Record Part II Discharge Time: 14:35 Destination: Surgical Day Care (OP Surgery) PACU nurse assessment reviewed?: Yes Patient Condition:: Good Anesthesia Complications:: None Swallowing reflex intact?: Yes Cyanosis?: No Blood Pressure: 124/58 Pulse Rate: 72 Temperature: 97.5 F Mental Status: Alert & Oriented Pain level:: 0 Nausea and/or vomitting:: None Intake, IV Amount: 0
== END 2021-06-07 15:06 | disposition home or self-care (01) ==
LOC: OR 11:21
PROVIDERS: PCP Family Medicine; Visit Provider Anesthesiology
DX: T81.32XA Disruption of internal operation (surgical) wound, not elsewhere classified, initial encounter (principal); J45.909 Unspecified asthma, uncomplicated; F32.A Depression, unspecified; K21.9 Gastro-esophageal reflux disease without esophagitis; E78.5 Hyperlipidemia, unspecified; I10 Essential (primary) hypertension; D64.9 Anemia, unspecified; M19.90 Unspecified osteoarthritis, unspecified site; Z88.2 Allergy status to sulfonamides; Z79.899 Other long term (current) drug therapy
CPT/HCPCS: 11042; 96374; J2405; J2710; J3370

== ENCOUNTER → 2021-06-11 11:47 | Outpatient (POV) | payer MEDICARE, SELFPAY ==
[2021-06-11 12:09] VITALS: BP 130/77; PULSE 84; RESP 18; O2SAT 98; BMI 32.4
--- NOTE | 2021-06-13 06:24 | HMH.PAINSOAP ---
[facility] Pain Management SOAP Note Subjective:: Patient is a 66-year-old white female who presents today for follow-up. The patient was seen on 06/07/2021. At that time, she did undergo an I&D and closure of the previous incision. The patient has had a removal of a spinal cord stimulator and pain pump. The site did become infected with tunneling. She was given multiple rounds of antibiotic therapy. Patient's wound did have dehiscence from previous pump incision. The wound was continuously draining with sanguinous drainage. She does say she is feeling much better today. She is currently managed with oral medications and is hopeful to have her intrathecal pump reimplanted at a later date, following healing. She rates her pain a 7 out of 10 today. Review of Systems General: No recent weight changes, no fever, no sleep disturbances Respiratory: No cough, no shortness of air, no recurring pulmonary infections Cardiovascular/peripheral vascular: No chest pain, no palpitations, no edema, no shortness of breath Gastrointestinal: No new onset incontinence, normal bowel movements reported Genitourinary: No new onset incontinence Musculoskeletal: Chronic low back pain Psychiatric: [Normal mood/affect] Neurological: [Denies weakness in extremities], [denies balance issues] Objective:: Physical exam General: Alert and oriented x3, no acute distress, pleasant and cooperative Lungs: Respirations even and unlabored, symmetrical chest expansion Eyes: PERRL Musculoskeletal: Flexion and extension of lumbar [spine] somewhat guarded secondary to pain, [antalgic gait noted] Neurological: Speech clear, no gross sensory deficit Skin: Incisions well approximated, no redness, no drainage, no edema to the area Assessment:: Wound infection status post spinal cord stimulator/intrathecal pain pump removal, degenerative disc disease lumbar spine with lumbar radiculopathy symptoms Plan:: Patient is following up after an I&D of previous incisions from removal of spinal cord stimulator and intrathecal pain pump. She is doing well overall. Incisions are without redness, drainage, or edema. She is afebrile today. She is being managed with oral medications. We will follow up with the patient in 1 week, when Dr. Nascimento will see the patient for further assessment. Patient has been instructed to contact the clinic with any concerns before the next appointment. Dr. Tsang has reviewed this note and agrees with this plan of care. This note was dictated using voice recognition software and make contain errors or omissions. [facility] History I have reviewed the patient's past medical history: Yes Medical History: Reports:: Asthma, Depression, Gastroesophageal Reflux Disease(GERD), Hyperlipidemia, Hypertension Denies:: Cancer, Diabetes Mellitus Type 1, Diabetes Mellitus Type 2, Internal Pacemaker, MRSA, Seizures *Have you ever received a pneumonia vaccine?: Yes *Have you received a flu vaccine this season?: Yes Other Medical History: Reports: Anemia, Arthritis, Other. Denies: Blood Transfusion Reaction Laterality Cases: Bilateral: Other Other Surgeries: Yes: Colonoscopy, EGD, Other (Cervical Fusion, intrathecal pain pump ). No: Pacemaker Amputation: No Fractures: No - *Social History Smoking Status: Never smoker Alcohol Intake: never Substance Use Type: denies use *Occupational Status:: unemployed Housing: house Household Members: none *Travel in the last 8 weeks: None - Psychiatric History Pschychiatric History:: Reports:: Depression Family Hx:: Asthma, Cancer, Diabetes, Kidney Disease
== END ==
PROVIDERS: Visit Provider Clinical Nurse Specialist Family Health
DX: M51.16 Intervertebral disc disorders with radiculopathy, lumbar region (principal); Z45.1 Encounter for adjustment and management of infusion pump; T81.49XA Infection following a procedure, other surgical site, initial encounter
CPT/HCPCS: 99212; G0463

== ENCOUNTER → 2021-06-14 10:19 | Outpatient (POV) | payer MEDICARE, SELFPAY ==
[2021-06-14 10:40] VITALS: BP 121/64; PULSE 84; RESP 20; TEMP 36; O2SAT 94; BMI 34.7
--- NOTE | 2021-06-14 11:05 | HMH.PAINSOAP ---
[facility] Pain Management SOAP Note Subjective:: This patient is a pleasant 66-year-old white female who underwent I&D and closure of her previous incision. Patient had removal of her spinal cord stimulator and pain pump. These previous incisions did become infected after removal. We had to take her back to surgery to have I&D and reclosure of her incisions. This was done approximately a week ago. Her incisions are healing very nicely. There is some redness however no signs of infection. She is having some increasing pain. She is currently managed with oxycodone 20 mg up to 6 times a day. She still has a lot of significant pain even on this high dose medication. She has been on tramadol before done well we will add tramadol to her medication regimen tramadol 50 mg twice a day. Objective:: Alert oriented x3 no acute distress. Incisions are healing very nicely. Patient does have an antalgic gait. Motor strength of the lower extremities is 5/5. There is no gross sensory deficit. There is some redness however there is no drainage and no fluctuance no signs of infection. Assessment:: Degenerative disc disease of lumbar spine with lumbar radiculopathy symptoms status post removal of intrathecal pain pump and stimulator. Also status post I&D and closure of a previous incision site dehisced. Plan:: Incisions are healing very nicely. We will follow-up for wound check next week. This will be done by Dr. Nascimento. We will also add tramadol 50 mg twice a day to her medication regimen to help with her pain management. We will keep the sutures in for approximately 3 to 4 weeks to ensure an adequate closure of her incisions. [facility] History Medical History: Reports:: Asthma, Depression, Gastroesophageal Reflux Disease(GERD), Hyperlipidemia, Hypertension Denies:: Cancer, Diabetes Mellitus Type 1, Diabetes Mellitus Type 2, Internal Pacemaker, MRSA, Seizures *Have you ever received a pneumonia vaccine?: Yes *Have you received a flu vaccine this season?: Yes Other Medical History: Reports: Anemia, Arthritis, Other. Denies: Blood Transfusion Reaction Laterality Cases: Bilateral: Other Other Surgeries: Yes: Colonoscopy, EGD, Other (Cervical Fusion, intrathecal pain pump ). No: Pacemaker Amputation: No Fractures: No - *Social History Smoking Status: Never smoker Alcohol Intake: never Substance Use Type: denies use *Occupational Status:: retired Housing: house Household Members: none *Travel in the last 8 weeks: None - Psychiatric History Pschychiatric History:: Reports:: Depression Family Hx:: Asthma, Cancer, Diabetes, Kidney Disease
== END ==
PROVIDERS: PCP Family Medicine; Visit Provider Anesthesiology
DX: M51.16 Intervertebral disc disorders with radiculopathy, lumbar region (principal); Z98.890 Other specified postprocedural states
CPT/HCPCS: 99212; G0463

== ENCOUNTER → 2021-06-24 11:39 | Outpatient (POV) | payer MEDICARE, SELFPAY ==
[2021-06-24 11:50] VITALS: BP 149/79; PULSE 104; RESP 18; O2SAT 95; BMI 32.1
--- NOTE | 2021-06-24 12:54 | HMH.PAINSOAP ---
[facility] Pain Management SOAP Note Subjective:: Patient is a pleasant 66-year-old female who comes in here today for follow-up. Patient had a removal of her spinal cord stimulator and pain pump due to persistent infection. Even after explant of her pain pump and stimulator, patient continued to have persistent infection. She was taken to surgery to have an I&D and reclosure of her incisions. This was done 2 weeks ago. Today, patient says that she is still draining from her midline incision. She denies any fever or systemic symptoms of infection. We have previously tried amoxicillin 500 mg 3 times a day for 7 days which helped the patient's incision but her infection came back as soon as she finished her course of abx. Patient could not tolerate Keflex. Patient also has a sulfa allergy so we could not try Bactrim. For her pain, since we have taken her pain pump out, patient is currently on oxycodone 20 mg 6 times a day and tramadol 50 mg twice a day. Patient says that this is somewhat helping her pain but she still is having significant pain and would like something else added. She rates her pain today as 8 out of 10. Review of Systems General: No recent weight changes, no fever, no sleep disturbances Respiratory: No cough, no shortness of air, no recurring pulmonary infections Cardiovascular/peripheral vascular: No chest pain, no palpitations, no edema, no shortness of breath Gastrointestinal: No new onset incontinence, normal bowel movements reported Genitourinary: No new onset incontinence Musculoskeletal: [Low back pain] Psychiatric: [Normal mood/affect] Neurological: [Denies weakness in extremities], [denies balance issues] Objective:: Physical exam General: Alert and oriented x3, no acute distress, pleasant and cooperative Lungs: Respirations even and unlabored, symmetrical chest expansion Eyes: PERRL Musculoskeletal: Flexion and extension of lumbar [spine] somewhat guarded secondary to pain, [antalgic gait noted] Skin: Sutures are still in placed and intact. Midline incision has some swelling and purulent drainage. Incision on the right low back is healing well with no drainage, erythema, and swelling. Neurological: Speech clear, no gross sensory deficit Assessment:: Degenerative disc disease of the lumbar spine with lumbar radiculopathy symptoms Status post Removal of Intrathecal Pain Pump and stimulator Status Post I&D and closure of a previous incision site Plan:: I discussed with the patient she already has high dose of oral pain medication and we cannot increase her tramadol dose today due to her risk of oversedation. For her surgical incisions, we will start the patient on doxycycline 100 mg twice a day for 7 days. We will also take sensitivity cultures today. We would like to see the patient back in 1 week for wound check. I have discussed with the patient to call our clinic if she is sensitive to the doxycycline. If the patient gets reaction from doxycycline, we will change her back to amoxicillin 500 mg 3 times a day. Patient has been instructed to contact the clinic with any concerns before the next appointment. Dr. Tsang has reviewed this note and agrees with this plan of care. This note was dictated using voice recognition software and make contain errors or omissions. [facility] History Medical History: Reports:: Asthma, Depression, Gastroesophageal Reflux Disease(GERD), Hyperlipidemia, Hypertension Denies:: Cancer, Diabetes Mellitus Type 1, Diabetes Mellitus Type 2, Internal Pacemaker, MRSA, Seizures *Have you ever received a pneumonia vaccine?: Yes *Have you received a flu vaccine this season?: Yes Other Medical History: Reports: Anemia, Arthritis, Other. Denies: Blood Transfusion Reaction Laterality Cases: Bilateral: Other Other Surgeries: Yes: Colonoscopy, EGD, Other (Cervical Fusion, intrathecal pain pump ). No: Pacemaker Amputation: No Fractures: No - *Social History Smoking Status: Never s
--- NOTE | 2021-06-26 14:05 | SW/DCPLANNER ---
SET UP HOME HEALTH FOR THIS PATIENT THAT WAS SEEN IN THE OUT PATIENT SETTING....SHE GETTING A PICC LINE AND HER FIRST DOSE WILL BE GIVEN HERE AT THE HOSPITAL [facility] ()... SERVICES WILL NEED TO START ON THURSDAY.... I ATTEMPTED TO SEND IT TO [facility] BUT THEY ARE HAVING STAFFING ISSUES, [facility] IS GOING TO SEND IT OUT AND IF THEY CAN'T FIND ANYONE TO TAKE IT... WAITING TO HEAR BACK...
== END ==
PROVIDERS: PCP Family Medicine; Visit Provider Clinical Nurse Specialist Family Health
DX: M51.16 Intervertebral disc disorders with radiculopathy, lumbar region (principal); Z98.890 Other specified postprocedural states
CPT/HCPCS: 87070; 87077; 87186; 87205; 99212; G0463

== ENCOUNTER 2021-06-27 12:50 | Outpatient (CLI) | payer MEDICARE, SELFPAY ==
[2021-06-27 13:46] VITALS: BMI 32.1
--- NOTE | 2021-06-27 15:27 | XR_ITS ---
FINAL REPORT CLINICAL HISTORY: PICC line placement FINDINGS: A left-sided PICC line terminates in the lower SVC. The heart size is normal. The mediastinum is normal. There is no focal infiltrate or edema. There are no pleural effusions. There is no pneumothorax. There are chronic left lateral rib fractures. IMPRESSION: Left-sided PICC line terminates in the lower SVC. Reviewed, Interpreted and Dictated by Gerard Davison III, MD Transcribed by Hernan Bautista Authenticated by Gerard Davison III, MD on 06/27/2021 04:27:24 PM [facility]
[2021-06-27 15:43] LABS: Chloride 102 mmol/L (98-107); Potassium 4.5 mmoL/L (3.5-5.1); Sodium 130 mmol/L (136-145)
[2021-06-27 15:46] LABS: Blood Urea Nitrogen 15 mg/dl (7-17); Creatinine Clearance Estimated 75 mL/min (50-200); Estimated Glomerular Filt Rate 63 ml/min (>60); GFR (African American) 76 ML/MIN (>60)
[2021-06-27 15:47] LABS: Anion Gap 7.5 mEq/L (5-15); Calcium 7.8 mg/dl (8.4-10.2); Carbon Dioxide 25 mmol/L (22.0-30.0); Glucose 87 mg/dl (74-100)
[2021-06-27 16:38] VITALS: BP 156/82; PULSE 63; RESP 18; TEMP 36.3; O2SAT 98
[2021-06-27 17:08] VITALS: BP 150/74; PULSE 69; RESP 18; O2SAT 98
[2021-06-27 17:38] VITALS: BP 127/75; PULSE 65; RESP 18; O2SAT 98
[2021-06-27 18:11] VITALS: BP 134/79; PULSE 61; RESP 18; O2SAT 97
[2021-06-27 18:56] VITALS: BP 125/70; PULSE 76; RESP 18; O2SAT 97
== END 2021-06-27 18:58 | disposition home or self-care (01) ==
LOC: INF 12:51
PROVIDERS: PCP Family Medicine; Visit Provider Anesthesiology
DX: M51.16 Intervertebral disc disorders with radiculopathy, lumbar region (principal); Z98.890 Other specified postprocedural states
CPT/HCPCS: 36410; 36569; 71045; 80048; 96365; 96366; C1751

== ENCOUNTER → 2021-07-02 15:56 | Outpatient (POV) | payer MEDICARE, SELFPAY ==
--- NOTE | 2021-07-02 16:14 | HMH.PAINSOAP ---
[facility] Pain Management SOAP Note Subjective:: Patient pleasant 66-year-old white female who we are treating for low back pain with lumbar radiculopathy symptoms. She did have removal of her spinal cord stimulator and intrathecal pain pump due to persistent infection. Her incision did dehisce and she had to have I&D approximately 3 weeks ago. She is under home health with IV antibiotics. She is doing well. Her incisions are healing. She has less drainage. We will continue to monitor. She is to continue with IV antibiotics and home health care for dressings. We will follow-up with her next Thursday. Objective:: Alert and oriented x3 no acute distress. Incision seems to be healing. There is less for drainage from her midline incision. No tenderness no redness no swelling. Patient does have an antalgic gait. Motor strength of the lower extremities is 5/5. There is no gross sensory deficit. We did review her CBC and white blood count is normal. No signs of infection. No fevers. Assessment:: Degenerative disc disease of lumbar spine with lumbar radiculopathy symptoms status post removal of spinal cord stimulator and pain pump for infection. Plan:: She is to continue with her IV antibiotics and dressing changes with home health. We will follow-up with her next Thursday. She can also continue with her pain medication. Oxycodone 20 mg 6 times a day and tramadol 50 mg twice a day. [facility] History Medical History: Reports:: Asthma, Depression, Gastroesophageal Reflux Disease(GERD), Hyperlipidemia, Hypertension Denies:: Cancer, Diabetes Mellitus Type 1, Diabetes Mellitus Type 2, Internal Pacemaker, MRSA, Seizures *Have you ever received a pneumonia vaccine?: Yes *Have you received a flu vaccine this season?: Yes Other Medical History: Reports: Anemia, Arthritis, Other. Denies: Blood Transfusion Reaction Laterality Cases: Bilateral: Other Other Surgeries: Yes: Colonoscopy, EGD, Other (Cervical Fusion, intrathecal pain pump ). No: Pacemaker Amputation: No Fractures: No - *Social History Smoking Status: Never smoker Alcohol Intake: never Substance Use Type: denies use *Occupational Status:: unemployed Housing: house Household Members: none *Travel in the last 8 weeks: Inside the [place] - Psychiatric History Pschychiatric History:: Reports:: Depression Family Hx:: Asthma, Cancer, Diabetes, Kidney Disease
[2021-07-02 16:18] VITALS: BP 168/95; PULSE 80; RESP 20; TEMP 36.4; O2SAT 96; BMI 32.1
== END ==
PROVIDERS: PCP Family Medicine; Visit Provider Anesthesiology
DX: M51.16 Intervertebral disc disorders with radiculopathy, lumbar region (principal); Z98.890 Other specified postprocedural states
CPT/HCPCS: 99212; G0463

== ENCOUNTER → 2021-07-12 11:49 | Outpatient (POV) | payer MEDICARE, SELFPAY ==
[2021-07-12 12:05] VITALS: BP 154/76; PULSE 95; RESP 20; O2SAT 96; BMI 32.1
--- NOTE | 2021-07-12 12:17 | HMH.PAINSOAP ---
[facility] Pain Management SOAP Note Subjective:: Patient is a very pleasant 66-year-old white female for follow-up. She is currently managed for degenerative disease of the lumbar spine lumbar radiculopathy. She recently underwent removal of the spinal cord stimulator and intrathecal pain pump due to persistent infection. Postop course was also complicated by wound dehiscence and she underwent I&D as well. She is currently receiving IV antibiotics with the aid of home health services. Overall she is doing fairly well. Her incisions are healing appropriately and there is less drainage at this time. She is taking oxycodone 20 mg 6 times a day and tramadol 50 mg twice a day. Objective:: General: Alert and oriented x3, no acute distress, pleasant and cooperative Lungs: Resps E/U, symmetric chest expansion Eyes: PERRL Musculoskeletal: limited flexion and extension of the lumbar spine secondary to pain. Deep tendon reflexes were normal in bilateral lower extremities. Motor exam was grossly intact in the bilateral lower extremities, antalgic gait noted. Skin: Both incision sites appear to be healing however there is some erythema worse at the pump incision site. Sutures are intact. There is no drainage appreciated. Neurological: Speech is clear, color room attendant equal, no gross sensory deficits Assessment:: During this is a lumbar spine with lumbar radiculopathy status post removal of the spinal cord stimulator and pain pump for infection Plan:: I discussed with the patient that we will continue her IV antibiotics and dressing changes with home health. We will follow-up with her in 1 week for evaluation of her incisions and to discuss whether she will continue to require IV antibiotics. If the incisions continue to improve appropriately she may be able to undergo suture removal at the next clinic visit. She can continue taking oxycodone 20 mg 6 times a day and tramadol 50 mg twice a day. I will refill tramadol 50 mg twice daily for 1 month supply #60. [facility] #[id number] and prior drug screens were reviewed and appropriate. [facility] History Medical History: Reports:: Asthma, Depression, Gastroesophageal Reflux Disease(GERD), Hyperlipidemia, Hypertension Denies:: Cancer, Diabetes Mellitus Type 1, Diabetes Mellitus Type 2, Internal Pacemaker, MRSA, Seizures *Have you ever received a pneumonia vaccine?: Yes *Have you received a flu vaccine this season?: Yes Other Medical History: Reports: Anemia, Arthritis, Other. Denies: Blood Transfusion Reaction Laterality Cases: Bilateral: Other Other Surgeries: Yes: Colonoscopy, EGD, Other (Cervical Fusion, intrathecal pain pump ). No: Pacemaker Amputation: No Fractures: No - *Social History Smoking Status: Never smoker Alcohol Intake: never Substance Use Type: denies use *Occupational Status:: retired Housing: house Household Members: none *Travel in the last 8 weeks: None - Psychiatric History Pschychiatric History:: Reports:: Depression Family Hx:: Asthma, Cancer, Diabetes, Kidney Disease
== END ==
PROVIDERS: PCP Family Medicine; Visit Provider Anesthesiology Pain Medicine
DX: M51.16 Intervertebral disc disorders with radiculopathy, lumbar region (principal); Z08 Encounter for follow-up examination after completed treatment for malignant neoplasm
CPT/HCPCS: 99212; G0463

== ENCOUNTER → 2021-07-19 13:29 | Outpatient (POV) | payer MEDICARE, SELFPAY ==
[2021-07-19 14:20] VITALS: BP 133/73; PULSE 86; RESP 20; TEMP 36.4; O2SAT 95; BMI 32.5
--- NOTE | 2021-07-19 14:23 | HMH.PAINSOAP ---
[facility] Pain Management SOAP Note Subjective:: Patient is a pleasant 66-year-old white female who we are seeing status post I&D for wound dehiscence after her pain pump and stimulator removal. She is taken oxycodone 20 mg 6 times a day and tramadol 50 mg twice a day to help with her pain symptoms. Her incisions have healed very nicely. We will remove sutures today and place Steri-Strips. Don and drug screen are all appropriate. Objective:: Alert and oriented x3 no acute distress. Patient does have an antalgic gait. Motor strength of the lower extremities is 5/5. There is no gross sensory deficit. Wound is not draining at all. It seems to have healed very nicely. Sutures will be removed today. Assessment:: Degenerative disc disease of lumbar spine with lumbar radiculopathy symptoms status post removal of spinal cord stimulator and pain pump for infection complicated by wound dehiscence Plan:: We will remove sutures today and placed Steri-Strips. We will follow-up with her in 1 week. As long as there is none to minimal drainage she can stop IV antibiotics. We will make this decision next week. [facility] History Medical History: Reports:: Asthma, Depression, Gastroesophageal Reflux Disease(GERD), Hyperlipidemia, Hypertension Denies:: Cancer, Diabetes Mellitus Type 1, Diabetes Mellitus Type 2, Internal Pacemaker, MRSA, Seizures *Have you ever received a pneumonia vaccine?: Yes *Have you received a flu vaccine this season?: Yes Other Medical History: Reports: Anemia, Arthritis, Other. Denies: Blood Transfusion Reaction Laterality Cases: Bilateral: Other Other Surgeries: Yes: Colonoscopy, EGD, Other (Cervical Fusion, intrathecal pain pump ). No: Pacemaker Amputation: No Fractures: No - *Social History Smoking Status: Never smoker Alcohol Intake: never Substance Use Type: denies use *Occupational Status:: retired Housing: house Household Members: none *Travel in the last 8 weeks: None - Psychiatric History Pschychiatric History:: Reports:: Depression Family Hx:: Asthma, Cancer, Diabetes, Kidney Disease
== END ==
PROVIDERS: PCP Family Medicine; Visit Provider Anesthesiology
DX: M51.16 Intervertebral disc disorders with radiculopathy, lumbar region (principal); Z98.890 Other specified postprocedural states
CPT/HCPCS: 99212; G0463

== ENCOUNTER → 2021-07-26 13:32 | Outpatient (POV) | payer MEDICARE, SELFPAY ==
--- NOTE | 2021-07-26 13:59 | P.CONS_ITS ---
[facility] Pain Management SOAP Note Subjective:: Patient is a pleasant 66-year-old white female who we have been seeing status post I&D for wound dehiscence after removal of pain pump and stimulator. Stitches and cholo were taken out last week. Her incision is not draining and has healed very nicely. She has no signs of infection at this time so we will remove her PICC line as she no longer needs any IV antibiotics. Objective:: Alert and oriented x3 no acute distress. Patient does have an antalgic gait. Motor strength of lower extremities is 5/5. There is no gross sensory deficit. Incisions have healed very nicely with no drainage. Assessment:: Degenerative disc disease of lumbar spine with lumbar radiculopathy symptoms status post removal of pain pump and spinal cord stimulator for infection complicated by wound dehiscence Plan:: We will follow-up with her next week. We will refill her medications at that time. She is currently on oxycodone 20 mg 6 times a day and tramadol 50 mg twice a day. SN is she is completely healed we will plan on replacing her intrathecal pain pump to get her off her oral medications. [facility] History Medical History: Reports:: Asthma, Depression, Gastroesophageal Reflux Disease (GERD), Hyperlipidemia, Hypertension Denies:: Cancer, Diabetes Mellitus Type 1, Diabetes Mellitus Type 2, Internal Pacemaker, MRSA, Seizures *Have you ever received a pneumonia vaccine?: Yes *Have you received a flu vaccine this season?: Yes Other Medical History: Reports: Anemia, Arthritis, Other. Denies: Blood Transfusion Reaction Laterality Cases: Bilateral: Other Other Surgeries: Yes: Colonoscopy, EGD, Other (Cervical Fusion, intrathecal pain pump ). No: Pacemaker Amputation: No Fractures: No - *Social History Smoking Status: Never smoker Alcohol Intake: never Substance Use Type: denies use *Occupational Status:: retired Housing: house Household Members: none *Travel in the last 8 weeks: Inside the [place] - Psychiatric History Pschychiatric History:: Reports:: Depression Family Hx:: Asthma, Cancer, Diabetes, Kidney Disease
[2021-07-26 14:09] VITALS: BP 151/85; PULSE 71; RESP 20; TEMP 36.3; O2SAT 95; BMI 32.5
--- NOTE | 2021-07-26 14:25 | PC.NURSE ---
late entry. PICC line to left upper extremity removed with tip intact per MD order. site free from s/s infection. pt tolerated procedure without any complaints.
== END ==
PROVIDERS: PCP Family Medicine; Visit Provider Anesthesiology
DX: T85.733A Infection and inflammatory reaction due to implanted electronic neurostimulator of spinal cord, electrode (lead), initial encounter (principal); M51.16 Intervertebral disc disorders with radiculopathy, lumbar region; Z98.890 Other specified postprocedural states
CPT/HCPCS: 99212; G0463

== ENCOUNTER → 2021-08-01 13:33 | Outpatient (POV) | payer MEDICARE, SELFPAY ==
[2021-08-01 14:20] VITALS: BP 128/78; PULSE 79; RESP 20; TEMP 36.6; O2SAT 96; BMI 32.5
--- NOTE | 2021-08-01 15:45 | HMH.PAINSOAP ---
[facility] Pain Management SOAP Note Subjective:: Patient is a pleasant 66-year-old female who is here for medication refill and follow-up. Patient is currently being treated for degenerative disc disease of the lumbar spine with lumbar radiculopathy symptoms, status post intrathecal pain pump removal, status post spinal cord stimulator removal. Patient is being managed with codeine 20 mg 6 times a day and tramadol 50 mg twice a day. Patient denies any side effects from the medications. She feels like the medications are not helping manage her pain. She would like an adjustment on her medications. Rates pain as 8 out of 10. [facility] number [id number] This patient had an intrathecal pain pump and a spinal cord stimulator. However, we had to explant these devices in May because she developed an infection after spinal cord stimulator placement in March. She was found to have developed MRSA in June. She underwent a vancomycin infusion outpatient for 3 weeks. She denies any fever, headache, visual changes. General: No recent weight changes, no fever, no sleep disturbances Respiratory: No cough, no shortness of air, no recurring pulmonary infections Cardiovascular/peripheral vascular: No chest pain, no palpitations, no edema, no shortness of breath Gastrointestinal: No new onset incontinence, normal bowel movements reported Genitourinary: No new onset incontinence Musculoskeletal: Low back pain Psychiatric: [Normal mood/affect] Neurological: [Denies weakness in extremities], [denies balance issues] Objective:: General: Alert and oriented x3, no acute distress, pleasant and cooperative, [on room air] Lungs: Respirations even and unlabored, symmetrical chest expansion Eyes: PERRL Musculoskeletal: Flexion and extension of lumbar [spine] somewhat guarded secondary to pain, [antalgic gait noted] Neurological: Speech clear, no gross sensory deficit Assessment:: Degenerative disc disease of the lumbar spine with lumbar radiculopathy symptoms, status post removal of pain pump and spinal cord stimulator due to infection complicated by dehiscence Plan:: We will continue the patient's oxycodone 20 mg 6 times a day and tramadol 50 mg twice a day. We will provide the patient with 1 month of refills. Her surgical incisions are healing well and well approximated. There is no drainage, erythema, and swelling. We would like to see the patient back in 1 month for follow-up and reevaluation of chronic pain syndrome. Since she is completely healed from her explant, we plan to schedule her for a placement of her intrathecal pain pump as soon as we can. Patient has been instructed to contact the clinic with any concerns before the next appointment. Dr. Tsang has reviewed this note and agrees with this plan of care. This note was dictated using voice recognition software and make contain errors or omissions. [facility] History Medical History: Reports:: Asthma, Depression, Gastroesophageal Reflux Disease(GERD), Hyperlipidemia, Hypertension Denies:: Cancer, Diabetes Mellitus Type 1, Diabetes Mellitus Type 2, Internal Pacemaker, MRSA, Seizures *Have you ever received a pneumonia vaccine?: Yes *Have you received a flu vaccine this season?: Yes Other Medical History: Reports: Anemia, Arthritis, Other. Denies: Blood Transfusion Reaction Laterality Cases: Bilateral: Other Other Surgeries: Yes: Colonoscopy, EGD, Other (Cervical Fusion, intrathecal pain pump ). No: Pacemaker Amputation: No Fractures: No - *Social History Smoking Status: Never smoker Alcohol Intake: never Substance Use Type: denies use *Occupational Status:: retired Housing: house Household Members: none *Travel in the last 8 weeks: None - Psychiatric History Pschychiatric History:: Reports:: Depression Family Hx:: Asthma, Cancer, Diabetes, Kidney Disease
== END ==
PROVIDERS: Visit Provider Student in an Organized Health Care Education/Training Program
DX: M51.16 Intervertebral disc disorders with radiculopathy, lumbar region (principal); Z98.890 Other specified postprocedural states
CPT/HCPCS: 99212; G0463

== ENCOUNTER → 2021-08-16 11:22 | Outpatient (POV) | payer MEDICARE, SELFPAY ==
[2021-08-16 12:06] VITALS: BP 129/62; PULSE 74; RESP 18; TEMP 36.2; O2SAT 90; BMI 29.7
--- NOTE | 2021-08-16 13:22 | P.CONS_ITS ---
[facility] Pain Management SOAP Note Subjective:: This patient is a pleasant 66-year-old white female who we have been treating for low back pain with lumbar radiculopathy symptoms. She is status post intrathecal pain pump removal and spinal cord stimulator removal. Her incisions have healed very nicely. They have completely closed now no signs of infection. Patient has been off all antibiotics for over a month. She is currently on oxycodone 20 mg 6 times a day and tramadol 50 mg twice a day. She still has pain despite these medications is not as good as her pain pump. Her Don and drug screen have all been appropriate. Don [phone]. We have talked to her about replacing her intrathecal pain pump. We will plan on replacement of her intrathecal pain pump at the end of August. Prior to this we will see the patient in the clinic to determine medication and dose. She will need to wean off of some of her oxycodone prior to her implant. Objective:: Alert and oriented x3 no acute distress. Patient does have antalgic gait. Motor strength of the lower extremities is 5/5. There is no gross sensory deficit. Assessment:: Degenerative disc disease of lumbar spine with lumbar radiculopathy symptoms with increasing pain status post removal of pain pump and spinal cord stimulator Plan:: We will plan on replacing her intrathecal pain pump later this month. We will follow-up with her in clinic to determine medication and dose. Also we will salo n on weaning her down on some of her oxycodone prior to implant. [facility] History Medical History: Reports:: Asthma, Depression, Gastroesophageal Reflux Disease(GERD), Hyperlipidemia, Hypertension Denies:: Cancer, Diabetes Mellitus Type 1, Diabetes Mellitus Type 2, Internal Pacemaker, MRSA, Seizures *Have you ever received a pneumonia vaccine?: Yes *Have you received a flu vaccine this season?: Yes Other Medical History: Reports: Anemia, Arthritis, Other. Denies: Blood Transfusion Reaction Laterality Cases: Bilateral: Other Other Surgeries: Yes: Colonoscopy, EGD, Other (Cervical Fusion, intrathecal pain pump ). No: Pacemaker Amputation: No Fractures: No - *Social History Smoking Status: Never smoker Alcohol Intake: never Substance Use Type: denies use *Occupational Status:: other Housing: house Household Members: none *Travel in the last 8 weeks: None - Psychiatric History Pschychiatric History:: Reports:: Depression Family Hx:: Asthma, Cancer, Diabetes, Kidney Disease
== END ==
PROVIDERS: PCP Family Medicine; Visit Provider Anesthesiology
DX: M51.16 Intervertebral disc disorders with radiculopathy, lumbar region (principal); R52 Pain, unspecified
CPT/HCPCS: 99212; G0463

== ENCOUNTER → 2021-09-05 08:56 | Outpatient (POV) | payer MEDICARE, SELFPAY ==
[2021-09-05 09:10] VITALS: BP 135/78; PULSE 96; RESP 18; TEMP 36.7; O2SAT 93; BMI 34.2
--- NOTE | 2021-09-05 09:53 | HMH.PAINSOAP ---
[facility] Pain Management SOAP Note Subjective:: Patient is a pleasant 66-year-old female who presents today for follow-up. Patient is current being treated for degenerative disc disease of the lumbar spine with lumbar radiculopathy symptoms. We were managing this patient with intrathecal pain pump and spinal cord stimulator. She was doing very well with intrathecal pain pump and was managing her pain for 4 years. She developed an infection after implanting her spinal cord stimulator last year. After multiple course of antibiotics and incision and drainage, we ended up explanting the stimulator and the pain pump. She was positive for MRSA and had to be treated with outpatient vancomycin infusion. She has been cleared of infection for more than 8 weeks now. Currently, we have been managing this patient with oxycodone 20 mg 6 times a day and tramadol 50 mg twice a day. We have the patient scheduled for a permanent placement of her intrathecal pain pump on September 17. Because of this, we have asked the patient to start weaning her oxycodone down. She says that she is only taking oxycodone 20 mg 4 times a day now. She is still taking tramadol 50 mg twice a day. She has ran out of this medication and wanting refills. Rates her pain today as 8 out of 10. [facility] #[id number] for an active morphine equivalent of 10. Review of Systems: General: No recent weight changes, no fever, no sleep disturbances Respiratory: No cough, no shortness of air, no recurring pulmonary infections Cardiovascular/peripheral vascular: No chest pain, no palpitations, no edema, no shortness of breath Gastrointestinal: No new onset incontinence, normal bowel movements reported Genitourinary: No new onset incontinence Musculoskeletal: Low back pain Psychiatric: [Normal mood/affect] Neurological: [Denies weakness in extremities], [denies balance issues] Objective:: Physical Exam: General: Alert and oriented x3, no acute distress, pleasant and cooperative, [on room air] Lungs: Respirations even and unlabored, symmetrical chest expansion Eyes: PERRL Musculoskeletal: Flexion and extension of lumbar [spine] somewhat guarded secondary to pain, [antalgic gait noted] Neurological: Speech clear, no gross sensory deficit Assessment:: Degenerative disc disease lumbar spine with Radiculopathy symptoms Increasing pain Status post removal of pain pump and spinal cord stimulator Plan:: Patient is scheduled for an intrathecal pain pump placement on September 17, 2021. We plan to start the patient with Dilaudid 1 mg/mL at 0.1 mg/day. Patient is titrating herself down before the procedure. She is now taking oxycodone 20 mg 4 times a day. I discussed with the patient to try to titrate down to oxycodone 20 mg twice a day next week. Since she is dropping to twice a day next week with her oxycodone, we will refill her tramadol 50 mg twice a day for 1 more week #14 tabs. We have reached out to pharmacy and they recommend to provide the patient with linezolid (Zyvox) 600 mg twice a day x7days. Patient has been instructed to contact the clinic with any concerns before the next appointment. Dr. Tsang has reviewed this note and agrees with this plan of care. This note was dictated using voice recognition software and make contain errors or omissions. [facility] History Medical History: Reports:: Asthma, Depression, Gastroesophageal Reflux Disease(GERD), Hyperlipidemia, Hypertension Denies:: Cancer, Diabetes Mellitus Type 1, Diabetes Mellitus Type 2, Internal Pacemaker, MRSA, Seizures *Have you ever received a pneumonia vaccine?: Yes *Have you received a flu vaccine this season?: Yes Other Medical History: Reports: Anemia, Arthritis, Other. Denies: Blood Transfusion Reaction Laterality Cases: Bilateral: Other Other Surgeries: Yes: Colonoscopy, EGD, Other (Cervical Fusion, intrathecal pain pump ). No: Pacemaker Amputation: No Fractures: No - *Social History Smoking Status: Never smoker Alcohol Int
== END ==
PROVIDERS: Visit Provider Student in an Organized Health Care Education/Training Program
DX: M51.16 Intervertebral disc disorders with radiculopathy, lumbar region (principal); R52 Pain, unspecified; Z98.890 Other specified postprocedural states
CPT/HCPCS: 99212; G0463

== ENCOUNTER → 2021-09-16 13:11 | Outpatient (CLI) | payer MEDICARE, SELFPAY ==
[2021-09-16 14:01] LABS: Basophils # 0.1 K/mm3 (0-0.2); Basophils % 0.7 % (0.1-2.0); Eosinophils # 0.3 K/mm3 (0.0-0.4); Eosinophils % 3.7 % (0.1-12.0); Hematocrit 38.7 % (37.0-47.0); Hemoglobin 12.9 g/dL (12.2-16.2); Lymphocytes # 1.1 K/mm3 (0.7-4.5); Lymphocytes % 16.1 % (10-50); Mean Corpuscular HGB Conc 33.3 g/dL (31.8-35.4); Mean Corpuscular Hemoglobin 32.7 pg (27.0-31.2); Mean Platelet Volume 8.7 fl (7.4-10.4); Monocytes # 0.4 K/mm3 (0.1-1.0); Monocytes % 5.3 % (1.7-9.3); Neutrophils # 4.9 K/mm3 (1.8-7.8); Neutrophils % 74.2 % (37.0-80.0); Platelet Count 218 K/mm3 (142-424); Red Blood Count 3.95 M/mm3 (4.20-5.40); White Blood Count 6.7 K/mm3 (4.8-10.8)
[2021-09-16 14:24] LABS: Benzodiazepines Screen,Urine Negative ng/ml (<200)
[2021-09-16 14:25] LABS: Amphetamine/Metha Screen,Urine Negative ng/ml (<1000); Barbiturates Screen,Urine Negative ng/ml (<200)
[2021-09-16 14:26] LABS: Methadone Screen,Urine Negative ng/ml (<300)
[2021-09-16 14:27] LABS: Cannabinoid Screen,Urine Negative ng/ml (<50); Cocaine Screen,Urine Negative ng/ml (<300)
[2021-09-16 14:28] LABS: Opiate Screen,Urine Positive ng/ml (<300)
[2021-09-16 14:29] LABS: Phencyclidine Screen,Urine Negative ng/ml (<25)
[2021-09-16 14:44] LABS: Anion Gap 10.3 mEq/L (5-15); Blood Urea Nitrogen 11 mg/dl (7-17); Calcium 8.8 mg/dl (8.4-10.2); Carbon Dioxide 27 mmol/L (22.0-30.0); Chloride 103 mmol/L (98-107); Estimated Glomerular Filt Rate 100 ml/min (>60); GFR (African American) 121 ML/MIN (>60); Glucose 93 mg/dl (74-100); Potassium 4.3 mmoL/L (3.5-5.1); Sodium 136 mmol/L (136-145)
== END ==
PROVIDERS: Visit Provider Anesthesiology
DX: Z01.812 Encounter for preprocedural laboratory examination (principal); Z11.52 Encounter for screening for COVID-19; M51.36 Other intervertebral disc degeneration, lumbar region
CPT/HCPCS: 36415; 80048; 80305; 85025; C9803; U0003; U0005

== ENCOUNTER 2021-09-17 08:05 | Day surgery (SDC) | payer MEDICARE, SELFPAY ==
[2021-09-13 15:30] VITALS: BMI 34.2
[2021-09-17] VITALS (11 sets, daily range): BP systolic 124–156; BP diastolic 73–100; PULSE 59–84; RESP 16–18; TEMP 36.1–36.7; O2SAT 93–99
--- NOTE | 2021-09-17 08:49 | HMH.ANESCL ---
[facility] Anesthesia Checklist - Patient Identification Patient Identification: Arm Band - Structural Data Admitted From: Home Planned Operative Procedure/s: Pain pump placement Consent for Planned Operative Procedure(s) Verified: Yes - NPO Status Verified Time NPO: 00:00 - Additional verifications Anesthesia Reactions: No Hx Blood Transfusions: No Blood Transfusion Reaction: No - Airway Assessment C-Spine Mobility Assessed: Yes TMJ Mobility Assessed: Yes Dentition: Good Dentition - Neurological Assessment Level of Consciousness: Awake Hx Seizures: No Numbness or tingling in extremities: No - Anesthesia Plan Anesthesia Risk discussed: Yes Anesthesia Plan: Verified ASA Class: III Anesthesia Type: MAC [facility] History I have reviewed the patient's past medical history: Yes Medical History: Reports:: Asthma, Depression, Gastroesophageal Reflux Disease(GERD), Hyperlipidemia, Hypertension, MRSA Denies:: Cancer, Diabetes Mellitus Type 1, Diabetes Mellitus Type 2, Internal Pacemaker, Seizures *Have you ever received a pneumonia vaccine?: Yes *Have you received a flu vaccine this season?: Yes Other Medical History: Reports: Anemia, Arthritis, Other. Denies: Blood Transfusion Reaction Anesthesia experience/problems:: None Laterality Cases: Bilateral: Other Other Surgeries: Yes: Colonoscopy, EGD, Other (Cervical Fusion, intrathecal pain pump ). No: Pacemaker Amputation: No Fractures: No - *Social History Last grade of school completed: GED Smoking Status: Never smoker Alcohol Intake: never Substance Use Type: denies use *Occupational Status:: retired Housing: house Household Members: none *Travel in the last 8 weeks: None - Psychiatric History Pschychiatric History:: Reports:: Depression Family Hx:: Asthma, Cancer, Coronary Artery Disease, Diabetes, Hypertension, Kidney Disease
--- NOTE | 2021-09-17 11:51 | P.PN_ITS ---
[facility] Anesthesia Record Part I Intake, IV Amount: 700 Estimated blood loss (mL): 20 Urine output (mL): 0 Blood Pressure: 156/100 SaO2: 93 Pulse Rate: 84 Respiratory Rate: 18 Temperature: 97.0 F Patient is:: Drowsy Stable to PACU at:: 11:45
--- NOTE | 2021-09-17 13:26 | HMH.OPNOTE ---
Date of procedure: 09/17/21 Pre-op Diagnosis:: Degenerative disc disease of lumbar spine with lumbar radiculopathy symptoms and postlaminectomy syndrome lumbar spine Post-op Diagnosis:: Degenerative disc disease of lumbar spine with lumbar radiculopathy symptoms and postlaminectomy syndrome of lumbar spine Procedure performed:: Permanent placement of intrathecal pain pump with catheter Surgeon:: Marty Tsang MD TECHNICIAN SUBMARINE CABLE EQUIPMENT:: Other Anesthesia: MAC Estimated blood loss (mL): 5 Clinical Note:: Patient is a pleasant 66-year-old white female who we have been treating for low back pain with lumbar radiculopathy symptoms and postlaminectomy syndrome lumbar spine. She previously had an intrathecal pain pump and stimulator which were both removed for infection. This was done 4 months ago. She has healed from her pain pump and stimulator removal. She has been off antibiotics for 3 months. She is currently being medically managed with oral medication. This is not controlling her pain symptoms. She has significant pain in her low back and down her legs. She has weaned herself off of her oxycodone and wants replacement of her intrathecal pain pump. We will replace it today and start her with intrathecal Dilaudid 1 mg/mL at 0.1 mg/day. Operative findings:: None Operative note:: Informed consent was obtained and the risk and benefits of the procedure were explained to the patient. The patient was taken to the operating room and placed on the procedure table. The patient was prepped and draped in sterile fashion. The skin and subcutaneous tissues in the right flank were anesthetized using lidocaine. I made an incision and dissected out for the pocket for the pain pump reservoir. C-arm fluoroscopy was then used to view the lumbar spine. The skin and subcutaneous tissues adjacent to the L4-L5 interspace were anesthetized using lidocaine. I made an incision and dissected down to the lumbar paraspinous fascia. A 15-gauge spinal needle was inserted and advanced into the L4-5 interspace until clear CSF was obtained. After this intrathecal catheter was inserted and advanced very easily to the T10 vertebral body. The stylette of the catheter and the needle were withdrawn. The catheter was secured to the fascia with 2 anchoring devices and 2-0 Prolene. I tunneled the catheter from the back to the pump pocket and attached catheter to the pump. Previously the pump was filled with 20 mL of intrathecal Dilaudid 1 mg/mL. The pump was placed in the pocket. We were able to freely withdraw clear CSF through the side-port. Both incisions were irrigated with antibiotic solution. Both incisions were then closed with 2-0 Vicryl followed by 4-0 nylon. Patient tolerated the procedure well with no complications. The pump was interrogated and started at 0.1 mg/day. Patient was discharged home neurologically intact with good relief of pain symptoms. Patient was discharged on Bactrim DS twice a day for 5 days. Plan and disposition: We will follow-up with this patient in 1 week for wound check and reprogramming. We will follow-up in 2 to 3 weeks for suture removal. Patient has any problems or questions patient is to call us in the pain clinic. Condition: stable Disposition: PACU Complications:: complications
--- NOTE | 2021-09-18 07:17 | P.PN_ITS ---
[facility] Anesthesia Record Part II Discharge Time: 12:25 Destination: Surgical Day Care (OP Surgery) PACU nurse assessment reviewed?: Yes Patient Condition:: Good Anesthesia Complications:: None Swallowing reflex intact?: Yes Cyanosis?: No Blood Pressure: 133/75 Pulse Rate: 63 Temperature: 98.1 F Mental Status: Alert & Oriented Pain level:: 4 Nausea and/or vomitting:: None Intake, IV Amount: 0
[2021-09-18 07:18] VITALS: BP 133/75; PULSE 63; TEMP 36.7
== END 2021-09-17 13:30 | disposition home or self-care (01) ==
LOC: OR 08:07
PROVIDERS: PCP Family Medicine; Visit Provider Anesthesiology
DX: M51.16 Intervertebral disc disorders with radiculopathy, lumbar region (principal); M96.1 Postlaminectomy syndrome, not elsewhere classified; J45.909 Unspecified asthma, uncomplicated; F32.A Depression, unspecified; K21.9 Gastro-esophageal reflux disease without esophagitis; E78.5 Hyperlipidemia, unspecified; I10 Essential (primary) hypertension; Z86.14 Personal history of Methicillin resistant Staphylococcus aureus infection; D64.9 Anemia, unspecified; M19.90 Unspecified osteoarthritis, unspecified site; Z88.2 Allergy status to sulfonamides; Z79.899 Other long term (current) drug therapy
CPT/HCPCS: 62350; 62362; 96374; C1755; C1772; J2405

== ENCOUNTER → 2021-09-19 11:12 | Outpatient (POV) | payer MEDICARE, SELFPAY ==
[2021-09-19 12:03] VITALS: RESP 18; TEMP 36.3; O2SAT 98; BMI 33.8
--- NOTE | 2021-09-19 12:25 | HMH.PMPROC ---
- Procedure Date: 09/19/21 Time: 12:25 Anesthesiologist:: CYNTHIA Varela Complications:: None Pre-procedure Diagnosis:: Degenerative disc disease of lumbar spine with lumbar radiculopathy symptoms, postlaminectomy syndrome of the lumbar spine Post-procedure Diagnosis:: Same Indications for Procedure:: Patient is a pleasant 66-year-old female who presents today for follow-up and intrathecal pain pump adjustment. Patient is currently treated for degenerative disc disease lumbar spine with lumbar radiculopathy symptoms, postlaminectomy syndrome. Patient is 2 days postop placement of her intrathecal pain pump. She is currently on Dilaudid 1 mg/mL at a rate of 0.1 mg/day. Patient states that she has not been having good sleep at night because of the pain. She is needing adjustment today. Denies any side effects from this medication. We have discussed this patient with Dr. Tsang today. He recommends that we increase the patient to 0.2 mg/day of Dilaudid. Patient is currently on linezolid 600 mg twice a day p.o. Patient has been having significant diarrhea for the past 2 days now. She wants to know if she can take something to slow down her got. Interval history: Patient had an intrathecal pain pump for 5 years that was providing patient significant relief. We implanted the patient with a spinal cord stimulator in March 2021. Patient developed an infection around her stimulator and pain pump. We ended up explanting her in May 2021. We have tried incision and drainage and other antibiotics with the patient continued to have infection in her incisions. When we cultured her in June, patient was positive for MRSA. We treated her with IV vancomycin for 3 weeks. Before her explant, patient was on Dilaudid 25 mg/mL at a rate of 7.2 mg/day. She was stable on this dose before explant. Before implanting the patient recently, patient was on oxycodone 20 mg 6 times a day and tramadol 50 mg twice a day. She weaned herself to oxycodone 20 mg twice a day before implant. Review of Systems: General: No recent weight changes, no fever, no sleep disturbances Respiratory: No cough, no shortness of air, no recurring pulmonary infections Cardiovascular/peripheral vascular: No chest pain, no palpitations, no edema, no shortness of breath Gastrointestinal: No new onset incontinence, normal bowel movements reported Genitourinary: No new onset incontinence Musculoskeletal: Low back pain Psychiatric: [Normal mood/affect] Neurological: [Denies weakness in extremities], [denies balance issues] Procedure Details:: Informed consent was obtained and the risk and benefits of the procedure were explained to the patient. Patient was taken to the procedure room where noninvasive monitoring was placed including noninvasive blood pressure cuff and pulse oximeter. Patient's pump was interrogated and was reprogrammed to Dilaudid 0.2 mg/day. The patient tolerated the procedure well with no complications. Plan and Disposition:: We have increased the patient's intrathecal pain pump dose to Dilaudid 0.2 mg/day. Patient would like something for sleep. I recommended the patient take melatonin 1 tablet at night. Patient continues to have her wound VAC. We were not able to evaluate her incisions today. She has another follow-up on Thursday. We will take out her wound VAC then. In regards to her diarrhea, we have consulted pharmacy. They recommend that we start the patient on Lomotil 1 tablet 4 times a day until the diarrhea stops. They also recommend probiotics for the patient. We will send these medications today. Patient has been instructed to contact the clinic with any concerns before the next appointment. Dr. Tsang has reviewed this note and agrees with this plan of care. This note was dictated using voice recognition software and make contain errors or omissions.
== END ==
PROVIDERS: Visit Provider Student in an Organized Health Care Education/Training Program
DX: M51.16 Intervertebral disc disorders with radiculopathy, lumbar region (principal); M96.1 Postlaminectomy syndrome, not elsewhere classified; Z45.1 Encounter for adjustment and management of infusion pump
CPT/HCPCS: 62368; 99213; G0463

== ENCOUNTER → 2021-09-23 09:54 | Outpatient (POV) | payer MEDICARE, SELFPAY ==
[2021-09-23 11:00] VITALS: BP 149/80; PULSE 87; RESP 18; TEMP 36.8; O2SAT 93; BMI 34.2
--- NOTE | 2021-09-23 12:06 | HMH.PMPROC ---
- Procedure Date: 09/23/21 Time: 12:06 Anesthesiologist:: CYNTHIA Varela Complications:: None Pre-procedure Diagnosis:: Degenerative disc disease of lumbar spine lumbar radiculopathy symptoms Post-procedure Diagnosis:: Same Indications for Procedure:: Patient is a pleasant 66-year-old female who presents today for follow-up and intrathecal pain pump adjustment. Patient is currently treated for degenerative disc disease lumbar spine with lumbar radiculopathy symptoms, postlaminectomy syndrome. Patient is currently being managed with intrathecal Dilaudid 1 mg/mL at a rate of 0.2 mg/day. Denies any side effects from this medication. Patient states that her pain is more controlled today than last week. She rates her pain as 7 out of 10. She has also finished her 1 week off linezolid 600 mg twice a day. She says that the Lomotil that we started her on last week helped a lot with her diarrhea. We plan to remove her wound VAC today. We will set up her PTC device today as well. [facility] [id number] with an active morphine equivalent of 90 Interval history: Patient had an intrathecal pain pump for 5 years that was providing patient significant relief. We implanted the patient with a spinal cord stimulator in March 2021. Patient developed an infection around her stimulator and pain pump. We ended up explanting her in May 2021. We have tried incision and drainage and other antibiotics with the patient continued to have infection in her incisions. When we cultured her in June, patient was positive for MRSA. We treated her with IV vancomycin for 3 weeks. Before her explant, patient was on Dilaudid 25 mg/mL at a rate of 7.2 mg/day. She was stable on this dose before explant. Before implanting the patient recently, patient was on oxycodone 20 mg 6 times a day and tramadol 50 mg twice a day. She weaned herself to oxycodone 20 mg twice a day before implant. Physical Exam: General: Alert and oriented x3, no acute distress, pleasant and cooperative Lungs: Respirations even and unlabored, symmetrical chest expansion Eyes: PERRL Musculoskeletal: Flexion and extension of lumbar [spine] somewhat guarded secondary to pain, [antalgic gait noted] Skin: Surgical incisions are healing well and well approximated. There is no drainage, erythema, and swelling. Neurological: Speech clear, no gross sensory deficit Procedure Details:: Informed consent was obtained and the risk and benefits of the procedure were explained to the patient. Patient was taken to the procedure room where noninvasive monitoring was placed including noninvasive blood pressure cuff and pulse oximeter. Patient's pump was interrogated and was reprogrammed to Dilaudid 0.2 mg/day. PTC boluses set up to Dilaudid 0.2 mg every 6 hours. The patient tolerated the procedure well with no complications. Plan and Disposition:: We removed her wound VAC today. Surgical incisions are healing well and well approximated. There is no drainage, erythema, and swelling. We will follow-up with this patient in 2 weeks for possible suture removal. Patient has been instructed to contact the clinic with any concerns before the next appointment. Dr. Tsang has reviewed this note and agrees with this plan of care. This note was dictated using voice recognition software and make contain errors or omissions.
== END ==
PROVIDERS: Visit Provider Student in an Organized Health Care Education/Training Program
DX: M51.16 Intervertebral disc disorders with radiculopathy, lumbar region (principal); Z45.1 Encounter for adjustment and management of infusion pump
CPT/HCPCS: 62368; 99213; G0463

== ENCOUNTER → 2021-10-08 10:42 | Outpatient (POV) | payer MEDICARE, SELFPAY ==
[2021-10-08 10:57] VITALS: BP 119/78; PULSE 84; RESP 18; TEMP 36.7; O2SAT 96; BMI 34.4
--- NOTE | 2021-10-08 11:19 | HMH.PMPROC ---
- Procedure Date: 10/08/21 Time: 11:19 Anesthesiologist:: Jose Gale CRNA Complications:: None Pre-procedure Diagnosis:: During of disc disease lumbar spine multilevels. Lumbar radiculopathy symptoms. Post-procedure Diagnosis:: Same Indications for Procedure:: This patient is a pleasant 66-year-old female who comes to our clinic today for a increase in her intrathecal pain pump rate. Patient recently had a reimplant of her intrathecal pain pump. She had an infection around the area of the previous pump it was removed. She was on home IV antibiotics for several months. She recently had a reimplant. She is on Dilaudid a milligram per milliliter at 0.2 mg/day. We will increase her to 20% today slowly getting her back to the rate she was prior to the extraction of the pump. Her increase will take her to 0.24 mg/day. Patient describes her pain as low back as well as cervical in nature. She describes it as constant, intermittent at times, dull and achy. Denies any side effects from the pain pump. Procedure Details:: Details of the procedure were explained to the patient. The patient was placed in the sitting position. The pump was interrogated and adjusted. The new increase to 0.24 mg/day. Also, the wound was inspected. Sutures were removed from the vertical incision. However, the horizontal incision it was determined to remove every other stitch as a precautionary measure to keep the incision intact. She will come back in 2 weeks to the clinic to reinspect the incision and potentially take out the remaining sutures. Both wounds looked normal without redness or swelling. Patient's pain will be assessed at that time. If needed we will increase her again on the pump rate. Plan and Disposition:: Patient tolerated procedure without difficulty. There were no complications.
== END ==
PROVIDERS: Visit Provider Nurse Anesthetist, Certified Registered
DX: M51.16 Intervertebral disc disorders with radiculopathy, lumbar region (principal); Z45.1 Encounter for adjustment and management of infusion pump
CPT/HCPCS: 62368

== ENCOUNTER → 2021-10-22 11:49 | Outpatient (POV) | payer MEDICARE, SELFPAY ==
[2021-10-22 12:54] VITALS: BP 152/77; PULSE 72; RESP 18; TEMP 36.9; O2SAT 94; BMI 35.6
--- NOTE | 2021-10-22 13:04 | P.PCN_ITS ---
- Procedure Date: 10/22/21 Time: 13:05 Anesthesiologist:: CYNTHIA Varela Complications:: None Pre-procedure Diagnosis:: Degenerative disc disease of lumbar spine with lumbar radiculopathy symptoms Post-procedure Diagnosis:: Same Indications for Procedure:: Patient is a pleasant 66-year-old female who presents today for intrathecal pain pump reprogram. The patient is being treated for degenerative disc disease of lumbar spine with lumbar radiculopathy symptoms, postlaminectomy syndrome. Patient is currently being managed with Dilaudid 0.24 mg/day. Patient denies any side effects from this medication. Patient rates pain a 8 out of 10. Drug screen is appropriate. Don [id number] with an active morphine equivalent of 0 has been reviewed and is appropriate. Patient has been having swelling around bilateral legs and has some facial swelling especially underneath her eyes. She is being followed by her PCP and has ordered labs to check for liver and kidney functions. We did not start her on any diuretics because we want to see what PCP wants to do first. Dr. Tsang has recommended to decrease her intrathecal dose today by 20% to see if this would help her swelling. Patient has been on this medication before without any issues. Interval history: Patient had an intrathecal pain pump for 5 years that was providing patient significant relief. We implanted the patient with a spinal cord stimulator in March 2021. Patient developed an infection around her stimulator and pain pump. We ended up explanting her in May 2021. We have tried incision and drainage and other antibiotics with the patient continued to have infection in her incisions. When we cultured her in June, patient was positive for MRSA. We treated her with IV vancomycin for 3 weeks. Before her explant, patient was on Dilaudid 25 mg/mL at a rate of 7.2 mg/day. She was stable on this dose before explant. Before implanting the patient recently, patient was on oxycodone 20 mg 6 times a day and tramadol 50 mg twice a day. She weaned herself to oxycodone 20 mg twice a day before implant. Physical exam General: Alert and oriented x3, no acute distress, pleasant and cooperative Lungs: Respirations even and unlabored, symmetrical chest expansion Eyes: PERRL Musculoskeletal: Flexion and extension of lumbar [spine] somewhat guarded secondary to pain, [antalgic gait noted] Neurological: Speech clear, no gross sensory deficit Procedure Details:: Informed consent was obtained and the risk and benefits of the procedure were explained to the patient. Patient was taken to the procedure room where noninvasive monitoring was placed including noninvasive blood pressure cuff and pulse oximeter. Patient's pump was interrogated and was reprogrammed to decre ase to Dilaudid 0.192 mg/day. We also changed her PTC device to give Dilaudid 0.013mg/bolus up to 6 times a day. The patient tolerated the procedure well with no complications. Plan and Disposition:: Will follow with this patient in 1 week. We removed the rest of her sutures today and applied steri-strips. Surgical incisions are healing well and well approximated. There is no drainage, erythema, swelling. We will see the patient back in the clinic at the next intrathecal refill. Patient has been instructed to contact the clinic with any concerns before the next appointment. Dr. Tsang has reviewed this note and agrees with this plan of care. This note was dictated using voice recognition software and make contain errors or omissions.
== END ==
PROVIDERS: PCP Family Medicine; Visit Provider Student in an Organized Health Care Education/Training Program
DX: M51.16 Intervertebral disc disorders with radiculopathy, lumbar region (principal); M96.1 Postlaminectomy syndrome, not elsewhere classified
CPT/HCPCS: 62368; 99213; G0463

== ENCOUNTER → 2021-10-29 10:13 | Outpatient (POV) | payer MEDICARE, SELFPAY ==
--- NOTE | 2021-10-29 10:52 | HMH.PMPROC ---
- Procedure Date: 10/29/21 Time: 10:53 Anesthesiologist:: Jose Gale CRNA Complications:: None Pre-procedure Diagnosis:: Degenerative disease lumbar spine multilevels. Lumbar radiculopathy symptoms. Post-procedure Diagnosis:: Same Indications for Procedure:: This patient is a pleasant 66-year-old female the presents today for interrogation and adjustment of her intrathecal pain pump. She currently has Dilaudid 1 mg/mL at 0.192 mg/day. Brief history, patient had longstanding history with Dilaudid intrathecal pain pump. Patient received spinal cord stimulator. Consequently, she became infected in the lumbar spine area. The intrathecal pain pump was explanted. Patient was on antibiotic therapy for 3 weeks. Patient was reimplanted with flow [place] pump 4 months later. Patient has recently had some swelling in her lower legs. On 10/22/2021 her pump was turned down by half. She had been running at 0.24 mg/day. This was an attempt to see if the swelling improved. However, there has only been mild improvement in terms of the lower leg inflammation. Today she presents for interrogation and increase. She is beginning to have some low back pain as well as bilateral hip and leg radicular symptoms. We well increase her pump by 35% today. She is now currently at 0.26 mg/day. Procedure Details:: Patient's pump was interrogated and increased 35%. She is now currently at 0.2600 milligrams per day. Plan and Disposition:: Patient will return to clinic in 2 months. We will return her to her home and fill program.
[2021-10-29 12:50] VITALS: BP 121/76; PULSE 83; RESP 20; TEMP 36.5; O2SAT 95; BMI 35.6
== END ==
PROVIDERS: Visit Provider Nurse Anesthetist, Certified Registered
DX: M51.16 Intervertebral disc disorders with radiculopathy, lumbar region (principal)
CPT/HCPCS: 62368; 99212; G0463

== ENCOUNTER → 2021-12-26 13:46 | Outpatient (POV) | payer MEDICARE, SELFPAY ==
[2021-12-26 13:57] VITALS: BP 140/80; PULSE 77; RESP 20; BMI 33.8
--- NOTE | 2021-12-26 14:29 | HMH.PAINSOAP ---
[facility] Pain Management SOAP Note Subjective:: Patient is a pleasant 66-year-old female that presents today for follow-up. We are currently treating the patient for degenerative disc disease of lumbar spine multilevels with lumbar radiculopathy symptoms. Patient rates her pain today a 5 out of 10. She states that her pain is all in her low back that radiates down both extremities and bilateral knees. She states that this is a constant aching sensation that is worse with increased activity. Patient denies any new trauma or injury. She is currently managed with an intrathecal pain pump of Dilaudid 1 mg/mL with a daily rate of 0.5166 mg/day. She was just increased to this dose last week at her home refill. Patient states she has had some improvement with her adjustment. Patient does also manage her pain with diclofenac gel and Lyrica 100 mg 3 times daily. Patient denies any side effects from these medications. She denies any change in the location or type of pain she experiences. Patient states she has had injective therapy in the past for her bilateral knee pain Dr. Camacho. She is interested in injective therapy for this issue at this time. her Don is [id number]. It has been reviewed and appropriate. Review of Systems: General: No recent weight changes, no fever, no sleep disturbances Respiratory: No cough, no shortness of air, no recurring pulmonary infections Cardiovascular/peripheral vascular: No chest pain, no palpitations, no edema, no shortness of breath Gastrointestinal: No new onset incontinence, normal bowel movements reported Genitourinary: No new onset incontinence Musculoskeletal: Low back pain, bilateral knee pain Psychiatric: [Normal mood/affect] Neurological: [Denies weakness in extremities], [denies balance issues] Objective:: Physical Exam: General: Alert and oriented x3, no acute distress, pleasant and cooperative Lungs: Respirations even and unlabored, symmetrical chest expansion Eyes: PERRL Musculoskeletal: Flexion and extension of bilateral knees, lumbar [spine] somewhat guarded secondary to pain, [antalgic gait noted]. Point tenderness along lumbar spine and bilateral knees Neurological: Speech clear, no gross sensory deficit Assessment:: Degenerative disc disease of lumbar spine multilevels with lumbar radiculopathy symptoms Plan:: Patient is managing her pain well with her intrathecal pain pump. She is experiencing worsening bilateral knee pain at today's visit. She had point tenderness along bilateral knees and decreased range of motion with flexion and extension. I have recommended to the patient regarding having bilateral intra-articular knee injections. Risk and benefits were discussed with the patient. She would like to proceed forward with these injections at this time. I will also prescribe the patient a compounding cream to try instead of her diclofenac gel. I will schedule the patient for bilateral knee intra-articular injections at today's visit. We will follow-up and reevaluate her symptoms following these injections. Patient has been instructed to contact the clinic with any concerns before the next appointment. Dr. Tsang has reviewed this note and agrees with this plan of care. This note was dictated using voice recognition software and make contain errors or omissions. [facility] History I have reviewed the patient's past medical history: Yes Medical History: Reports:: Asthma, Depression, Gastroesophageal Reflux Disease(GERD), Hyperlipidemia, Hypertension, MRSA Denies:: Cancer, Diabetes Mellitus Type 1, Diabetes Mellitus Type 2, Internal Pacemaker, Seizures *Have you ever received a pneumonia vaccine?: Yes *Have you received a flu vaccine this season?: Yes Other Medical History: Reports: Anemia, Arthritis, Other. Denies: Blood Transfusion Reaction Laterality Cases: Bilateral: Other Other Surgeries: Yes: Colonoscopy, EGD, Other (Cervical Fusion, intrathecal pain pump ). No: Pacemaker Amputation: No Fracture
== END ==
PROVIDERS: Visit Provider Nurse Practitioner Family
DX: M51.16 Intervertebral disc disorders with radiculopathy, lumbar region (principal); M25.562 Pain in left knee; M25.561 Pain in right knee
CPT/HCPCS: 99212; G0463

== ENCOUNTER 2022-01-03 08:26 | Day surgery (SDC) | payer MEDICARE, SELFPAY ==
[2022-01-03 08:40] VITALS: BP 126/71; PULSE 77; RESP 20; O2SAT 95; BMI 34.2
[2022-01-03 09:09] VITALS: BP 105/64; PULSE 65; RESP 18; O2SAT 91
--- NOTE | 2022-01-03 09:51 | HMH.PMPROC ---
- Procedure Date: 01/03/22 Time: 09:00 Anesthesiologist:: Jose Gale CRNA Complications:: None Pre-procedure Diagnosis:: Bilateral knee osteoarthritis Post-procedure Diagnosis:: Same Indications for Procedure:: Patient is a pleasant 66-year-old lady that we have been treating for quite some time in our clinic for chronic pain. She currently is being managed with intrathecal pain pump of hydromorphone 1 mg/mL at 0.5166 mg/day. Patient indicates the pump is doing very well. Patient does not complain of any side effects regarding the pump at this time. She presents today with chronic bilateral knee pain. She is requesting bilateral intra-articular knee injections today. She rates the knee pain 7/10. Patient states pain increases when walking for any length of time. Standing for any length of time. Procedure Details:: Pre-procedure Diagnosis: Bilateral knee pain with degenerative osteoarthritis both knees Post-procedure Diagnosis: Same Procedure Details: Bilateral intra-articular knee injection Informed consent was obtained risk and benefits of the procedure were explained to the patient. Patient was taken the procedure room both knees were prepped using ChloraPrep. A 25-gauge needle was used to inject 10 mL bupivacaine 0.25% and Depo-Medrol 40 mg into each knee. We did a total of 80 mg Depo-Medrol for both knees. The patient tolerated the procedure well with no complications. Plan and Disposition:: We will follow-up with him in 2 weeks. Will reevaluate symptoms at that time. Plan and Disposition:: Patient was discharged without incident.
== END 2022-01-03 09:10 | disposition home or self-care (01) ==
LOC: SC.PAINP 08:27
PROVIDERS: PCP Family Medicine; Visit Provider Nurse Anesthetist, Certified Registered
DX: M17.0 Bilateral primary osteoarthritis of knee (principal)
CPT/HCPCS: 20610; J1040

== ENCOUNTER → 2022-01-15 10:13 | Outpatient (POV) | payer MEDICARE, SELFPAY ==
[2022-01-15 10:38] VITALS: BP 130/76; PULSE 65; RESP 20; TEMP 36.4; O2SAT 94; BMI 34.2
--- NOTE | 2022-01-15 15:38 | A.OFFVIS_ITS ---
[facility] Pain Management SOAP Note Subjective:: Patient is a pleasant 66-year-old female who presents today for follow-up of bilateral intra-articular knee injections on 01/03/2022. We are currently treating the patient for degenerative disc disease of lumbar spine multilevels with lumbar radiculopathy symptoms, bilateral knee osteoarthritis. Patient states that she got 2 days worth of relief following these injections. She rates 80% improvement in her symptoms. Today she rates her pain a 8 out of 10 and states it is in bilateral knees, hips and low back. Patient is currently managed with Dilaudid 1 mg/mL with a daily dose of 0.5166 mg/day. Patient is scheduled for a at home refill today. Patient denies any side effects from this medication. She states this medication is adequately managing her pain. She is requesting an increased dosage at today's visit. We have also prescribed the patient diclofenac gel that does provide some improvement. She is also taking Lyrica 100 mg 3 times a day. Patient does use her compounding cream that provides some relief however not long-term. Her Don is [id number]. Its been reviewed and appropriate. Review of Systems: General: No recent weight changes, no fever, no sleep disturbances Respiratory: No cough, no shortness of air, no recurring pulmonary infections Cardiovascular/peripheral vascular: No chest pain, no palpitations, no edema, no shortness of breath Gastrointestinal: No new onset incontinence, normal bowel movements reported Genitourinary: No new onset incontinence Musculoskeletal: Low back pain, bilateral knee pain and hip pain Psychiatric: [Normal mood/affect] Neurological: [Denies weakness in extremities], [denies balance issues] Objective:: Physical Exam: General: Alert and oriented x3, no acute distress, pleasant and cooperative Lungs: Respirations even and unlabored, symmetrical chest expansion Eyes: PERRL Musculoskeletal: Flexion and extension of lumbar [spine] somewhat guarded secondary to pain, [antalgic gait noted] Neurological: Speech clear, no gross sensory deficit Assessment:: Degenerative disc disease of lumbar spine with lumbar radiculopathy symptoms, bilateral knee osteoarthritis, bilateral hip pain Plan:: Patient has had significant improvement in her knee symptoms following her injection however this did not provide long-term relief. I did discuss with the patient regarding having repeat bilateral knee intra-articular injections. Risk and benefits were discussed with the patient. She would like to proceed forward with these injections. I have also discussed with the patient regarding giving her a 10% increase of her intrathecal pump medication during her home refill later today. I will reorder the patient's Lyrica 100 mg 3 times a day and provide a 3-month supply of this medication. We will schedule the patient for a bilateral knee intra-articular injection at today's visit. We will follow-up with the patient on this injection date regarding the increase in her intrathecal pump medication. Patient has been instructed to contact the clinic with any concerns before the next appointment. Dr. Tsang has reviewed this note and agrees with this plan of care. This note was dictated using voice recognition software and make contain errors or omissions. PFSH PFSH Social History Smoking Status: Never smoker second hand exposure: No alcohol intake: never substance use type: denies use current occupational status: other household members: none housing: house current occupational exposures/hazards: No caffeine: Yes
== END ==
PROVIDERS: PCP Family Medicine; Visit Provider Nurse Practitioner Family
DX: M51.16 Intervertebral disc disorders with radiculopathy, lumbar region (principal); M16.0 Bilateral primary osteoarthritis of hip; M17.0 Bilateral primary osteoarthritis of knee
CPT/HCPCS: 99212; G0463

== ENCOUNTER 2022-02-04 11:13 | Day surgery (SDC) | payer MEDICARE, SELFPAY ==
[2022-02-04 11:19] VITALS: BP 143/72; PULSE 94; RESP 18; TEMP 36.6; O2SAT 93; BMI 32.1
[2022-02-04 11:25] VITALS: BP 143/84; PULSE 74; RESP 18; O2SAT 98
--- NOTE | 2022-02-04 11:29 | EXP.PAIN.PRO ---
Procedure Date: 02/04/22 Time: 11:29 Anesthesiologist:: Jose Gale CRNA Complications:: None Pre-procedure Diagnosis:: Osteoarthritis bilateral knees Post-procedure Diagnosis:: Same Indications for Procedure:: This patient is a pleasant 66-year-old female that comes our injection clinic today for bilateral intra-articular knee injections. Patient has had these injections in the past with significant improvement. Patient complains of sharp, stabbing pain in the knees when ambulating. Also dull, aching sensation when sitting. We currently manage the patient with hydromorphone intrathecal pain pump 5 mg/mL at 0.56 mg/day. Patient is asking today for increase in the pump due to overall pain she describes as chronic low back hips and legs. We will increase her pump by 20% today. Her new rate will be 0.68 mg/day. Patient denies any side effects from the intrathecal pain pump. Procedure Details:: Details of the procedure were explained to the patient. The patient taken the procedure room placed in the sitting position. The area over the lateral borders of the knee joint were cleaned using chlorhexidine as a cleansing solution. Using an inch and a half 25-gauge needle the right knee joint was accessed with ease. 0.25% Marcaine 4 cc +40 mg of Depo-Medrol was injected. The same procedure was carried out in the left knee. Patient tolerated procedure without difficulty. No complications. Plan and Disposition:: Patient was discharged without incident.
[2022-02-04 11:30] VITALS: BP 143/84; PULSE 74; RESP 18; O2SAT 98
[2022-02-04 11:33] VITALS: BP 145/81; PULSE 85; RESP 18; O2SAT 94
== END 2022-02-04 11:32 | disposition home or self-care (01) ==
LOC: SC.PAINP 11:14
PROVIDERS: PCP Family Medicine; Visit Provider Nurse Anesthetist, Certified Registered
DX: M17.0 Bilateral primary osteoarthritis of knee (principal); M51.16 Intervertebral disc disorders with radiculopathy, lumbar region
CPT/HCPCS: 62368; J1030

== ENCOUNTER → 2022-02-13 11:01 | Outpatient (POV) | payer MEDICARE, SELFPAY ==
[2022-02-13 12:02] VITALS: BP 149/78; PULSE 64; RESP 18; TEMP 36.8; O2SAT 96; BMI 32.5
--- NOTE | 2022-02-13 12:15 | EXP.PAIN.PRO ---
Procedure Date: 02/13/22 Time: 11:44 Anesthesiologist:: Mari Yeboah APRN Complications:: None Pre-procedure Diagnosis:: Degenerative disc disease lumbar spine with lumbar radiculopathy symptoms, osteoarthritis bilateral knees Post-procedure Diagnosis:: Same Indications for Procedure:: Patient is a pleasant 66-year-old female who presents today for intrathecal pain pump [adjustment and reprogram]. The patient is being treated for degenerative disc disease of lumbar spine with lumbar radiculopathy symptoms, osteoarthritis bilateral knees. Patient is currently being managed with Dilaudid 5 mg/mL with a daily dose of 0.68 mg/day. Patient denies any side effects from this medication. Patient rates pain a 10 out of 10. Drug screen is appropriate. Patient recently had a genicular nerve block of her right knee on 02/04/2022. Patient states that she had at least 70% improvement of her pain symptoms in her knee lasting 4 days. Patient does state that she is back to her previous baseline and is interested in another injection of her right knee. Physical exam General: Alert and oriented x3, no acute distress, pleasant and cooperative Lungs: Respirations even and unlabored, symmetrical chest expansion Eyes: PERRL Musculoskeletal: Flexion and extension of [lumbar] [spine] somewhat guarded secondary to pain, [antalgic gait noted] Neurological: Speech clear, no gross sensory deficit Procedure Details:: Informed consent was obtained and the risk and benefits of the procedure were explained to the patient. Patient was taken to the procedure room where noninvasive monitoring was placed including noninvasive blood pressure cuff and pulse oximeter. Patient's pump was interrogated and was reprogrammed to [Dilaudid 5 mg/mL with a daily dose of 0.714 mg/day]. The patient tolerated the procedure well with no complications. Plan and Disposition:: Patient continues to have significant pain in her right knee. Patient did have improvement of her pain symptoms following this last genicular nerve block. I have discussed with the patient that she may benefit from a second genicular nerve block of her right knee with the plan to do a future RFA to the area. Risk and benefits were discussed with the patient. We will proceed forward with this injection. I will also reorder the patient's compounding cream. We will schedule the patient for a right knee genicular nerve block at today's visit. At that visit we will discuss if the patient got improved pain symptoms following her pain pump adjustment. I have discussed with the patient patient has been instructed to contact the clinic with any concerns before the next appointment. Dr. Tsang has reviewed this note and agrees with this plan of care. This note was dictated using voice recognition software and make contain errors or omissions. -- It Is medically necessary for this patient to continue to have their intrathecal pump refilled at regular intervals. This patient had an intrathecal pain pump implanted after meeting criteria of chronic intractable pain for greater than 3 months and failing conservative treatments. Patient has committed and been compliant to the treatment plan and all planned follow up care. Since implantation of the intrathecal pain pump, the patient has had decreased pain and been more functional. Oral medications have been reduced including intake of oral opioids. Patient continues to do well with intrathecal therapy with decrease in pain symptoms and increase in functional status. Stopping intrathecal medications can lead to life threatening withdrawal, seizures, cardiac arrest, severe pain, and possible . Pumps that are not refilled at regular intervals can be damages and cause and need for replacement. We continually titrate dose and concentration to optimize pain relief and function. We are limited in concentration for certain drugs to safely deliver medications through the pump and stay within
== END | disposition home or self-care (01) ==
PROVIDERS: Visit Provider Nurse Practitioner Family
DX: M51.16 Intervertebral disc disorders with radiculopathy, lumbar region (principal); M17.0 Bilateral primary osteoarthritis of knee
CPT/HCPCS: 62368; 99213; G0463

== ENCOUNTER 2022-02-25 13:30 | Day surgery (SDC) | payer MEDICARE, SELFPAY ==
[2022-02-25 13:52] VITALS: BP 123/70; PULSE 78; RESP 18; TEMP 35.7; O2SAT 98; BMI 32.1
[2022-02-25 14:08] VITALS: BP 130/69; PULSE 77; RESP 18; O2SAT 99
[2022-02-25 14:09] VITALS: BP 130/69; PULSE 77; RESP 18; O2SAT 99
--- NOTE | 2022-02-25 14:20 | EXP.PAIN.PRO ---
Procedure Date: 02/25/22 Time: 14:15 Anesthesiologist:: Jose Gale CRNA Complications:: None Pre-procedure Diagnosis:: Degenerative disc disease lumbar spine multilevels. Lumbar radiculopathy symptoms. Osteoarthritis bilateral knees. Post-procedure Diagnosis:: Same. Indications for Procedure:: Patient is a pleasant 66-year-old female that comes to our clinic today for right genicular nerve block. Patient has had pain in bilateral knees for quite some time. She no longer was responding to intra-articular cortisone. She has had genicular blocks bilaterally with 4 to 5 days of relief. Patient asking for referral to orthopedic surgery for evaluation/consultation on her chronic bilateral knee pain. We will refer her to Dr. Yeboah in [place]. Also, patient requesting increase in her intrathecal pain pump today. Her pump will be interrogated and we will reprogram today. Patient currently has Dilaudid 5 mg/mL at 0.7140 mg/day. Procedure Details:: Pre-procedure Diagnosis:: Right knee pain with degenerative osteoarthritis Post-procedure Diagnosis: Same Indications for Procedure: Procedure Details: Right knee genicular block Informed consent was obtained and the risk and benefits of the procedure was explained to the patient. The patient was taken to the procedure room. The right knee was prepped using ChloraPrep. I placed 22-gauge needles into the area of the right superior medial genicular nerve, right superior lateral genicular nerve and right inferior medial genicular nerve. Needle placement was confirmed in AP and lateral views with dye. We then injected bupivacaine 0.25% 3 mL's and Depo-Medrol 25 mg into each area of the right superior medial genicular nerve, right superior lateral genicular nerve and right inferior medial genicular nerve. Patient tolerated the procedure well with no complications. Details of the procedure were explained to the patient. Patient was placed in the sitting position. The pump was interrogated. The rate was increased to 0.8500 mg/day. Plan and Disposition:: Patient was discharged without incident.
[2022-02-25 14:26] VITALS: BP 129/71; PULSE 68; RESP 20; O2SAT 95
== END 2022-02-25 14:27 | disposition home or self-care (01) ==
PROVIDERS: PCP Family Medicine; Visit Provider Nurse Anesthetist, Certified Registered
DX: M51.16 Intervertebral disc disorders with radiculopathy, lumbar region (principal); M17.0 Bilateral primary osteoarthritis of knee
CPT/HCPCS: 62368; 64454; J1040

== ENCOUNTER → 2022-03-04 12:50 | Outpatient (CLI) | payer MEDICARE, SELFPAY ==
--- NOTE | 2022-03-04 12:58 | XR_ITS ---
FINAL REPORT CLINICAL HISTORY: KNEE PAIN FINDINGS: Right knee Three views were obtained. There is no acute fracture or dislocation. Mild degenerative changes are present. No joint effusion is identified. There is meniscal calcification. IMPRESSION: No acute process. Reviewed, Interpreted and Dictated by Gerard Davison III, MD Transcribed by Evon Galo Authenticated and [facility]
--- NOTE | 2022-03-04 12:58 | XR_ITS ---
FINAL REPORT CLINICAL HISTORY: KNEE PAIN FINDINGS: Left knee Three views were obtained. There is no acute fracture or dislocation. Mild degenerative changes are present. No joint effusion is identified. No soft tissue abnormality is identified. IMPRESSION: No acute process. Reviewed, Interpreted and Dictated by Gerard Davison III, MD Transcribed by Evon Galo Authenticated and [facility]
== END ==
PROVIDERS: PCP Family Medicine; Visit Provider Nurse Anesthetist, Certified Registered
DX: M25.562 Pain in left knee (principal); M25.561 Pain in right knee
CPT/HCPCS: 73562

== ENCOUNTER → 2022-03-18 13:45 | Outpatient (POV) | payer MEDICARE, SELFPAY ==
[2022-03-18 14:05] VITALS: BP 154/90; PULSE 71; RESP 18; O2SAT 96; BMI 30.9
--- NOTE | 2022-03-18 14:11 | EXP.PAIN.PRO ---
Procedure Date: 03/18/22 Time: 14:11 Anesthesiologist:: Jose Gale CRNA Complications:: None Pre-procedure Diagnosis:: Degenerative disc disease lumbar spine multilevels with lumbar radiculopathy symptoms, osteoarthritis bilateral knees Post-procedure Diagnosis:: Same Indications for Procedure:: Patient is a pleasant 66-year-old female who presents today for pain pump adjustment and reprogram. We are currently treating the patient for degenerative disc disease of lumbar spine multilevels with lumbar radiculopathy symptoms, osteoarthritis bilateral knees. Today the patient rates her pain a 10 out of 10 and states the pain is in her legs and low back. Patient denies any new trauma or injury. Patient denies any change of location or type of pain she is experiencing. Patient does state that she is scheduled for gel knee injections today with Dr. Yeboah's office. Patient is currently managed with Dilaudid 5 mg/mL with a daily dose of 0.85 mg/day. Patient denies any side effects from this medication. She states this medication does help her pain symptoms. Patient is requesting an increase to her intrathecal pain pump medication. General: Alert and oriented x3, no acute distress, pleasant and cooperative Lungs: Respiration even unlabored, symmetrical chest expansion Eyes: PERRL Musculoskeletal: Flexion and extension of lumbar spine somewhat guarded secondary to pain, antalgic gait noted Neurological: Speech clear, no gross sensory deficit Procedure Details:: Informed consent was obtained and the risk and benefits of the procedure were explained to the patient. The patient was taken to the procedure room where noninvasive monitoring was placed including noninvasive blood pressure cuff and pulse oximeter. The area over the pump was interrogated and increased to Dilaudid 5 mg/mL with a daily dose of 1 mg/day. Patient tolerated the procedure well with no complications. Plan and Disposition:: We will see the patient back in 2 weeks. Patient will return to clinic in 2 weeks for reevaluation of her symptoms and follow-up. Patient has been counseled to contact the office with any questions or concerns before the next appointment date. Dr. Tsang has read this note and agrees with this plan of care. This note was dictated using voice recognition software and may contain errors or omissions.
== END | disposition home or self-care (01) ==
PROVIDERS: PCP Family Medicine; Visit Provider Nurse Anesthetist, Certified Registered
DX: M51.16 Intervertebral disc disorders with radiculopathy, lumbar region (principal); M17.0 Bilateral primary osteoarthritis of knee
CPT/HCPCS: 62368

== ENCOUNTER 2022-03-19 20:28 | Observation (INO) | payer MEDICARE, SELFPAY ==
[2022-03-19 20:30] VITALS: BP 162/84; PULSE 61; RESP 18; TEMP 37.7; O2SAT 94; BMI 32.1
--- NOTE | 2022-03-19 21:30 | ECG_ITS ---
APPROVED REPORT Exam: Resting ECG HR:62 bpm ECG Measurements Heart Rate 62 AXES MO 180 P 46 QRSd 98 QRS -2 QT 371 T 76 QTc 377 Conclusion SINUS RHYTHM LOW QRS VOLTAGE IN PRECORDIAL LEADS [QRS DEFLECTION < 1.0 mV IN CHEST LEADS] Old isolated Q wave in III UNCONFIRMED REPORT Electronically signed by : Nahum Ann MD 03/21/2022 13:29:45
[2022-03-19 21:31] VITALS: BP 162/84; PULSE 63; O2SAT 94
--- NOTE | 2022-03-19 21:34 | XR_ITS ---
PROCEDURE INFORMATION: Exam: XR Chest Exam date and time: 03/19/2022 9:50 PM Age: 66 years old Clinical indication: Fever TECHNIQUE: Imaging protocol: Radiologic exam of the chest. Views: 1 view. COMPARISON: CR XR CHEST PORTABLE PICC PLAC 06/27/2021 3:40 PM FINDINGS: Lungs: Fine reticular opacities noted at the right lung base. Pleural spaces: Unremarkable. No pleural effusion. No pneumothorax. Heart/Mediastinum: Moderate cardiomegaly. Bones/joints: Unremarkable. IMPRESSION: 1. Reticular opacities at the right lung base may reflect atelectasis or developing infiltrate. Lungs are otherwise clear. 2. Stable moderate cardiomegaly.
[2022-03-19 21:39] LABS: Influenza A, PCR Not Detected (NotDetected); Influenza B, PCR Not Detected (NotDetected)
--- NOTE | 2022-03-19 21:39 | PC.NURSE ---
RAD at for CXR
[2022-03-19 22:00] VITALS: BP 157/83; PULSE 68; O2SAT 91
--- NOTE | 2022-03-19 22:00 | PC.NURSE ---
Pt voices she will be unable to provide a urine sample on command she advised they will have better luck to use a catheter
[2022-03-19 22:16] LABS: Basophils % 2.3 % (0.1-2.0); Eosinophils % 0.1 % (0.1-12.0); Hematocrit 38.1 % (37.0-47.0); Hemoglobin 12.9 g/dL (12.2-16.2); Lymphocytes # 0.2 K/mm3 (0.7-4.5); Lymphocytes % 12.3 % (10-50); Mean Corpuscular HGB Conc 33.8 g/dL (31.8-35.4); Mean Corpuscular Hemoglobin 33.4 pg (27.0-31.2); Mean Corpuscular Volume 98.9 fl (81-99); Mean Platelet Volume 8.7 fl (7.4-10.4); Monocytes # 0.2 K/mm3 (0.1-1.0); Monocytes % 10.6 % (1.7-9.3); Neutrophils # 1.4 K/mm3 (1.8-7.8); Neutrophils % 74.7 % (37.0-80.0); Platelet Count 128 K/mm3 (142-424); Red Blood Count 3.85 M/mm3 (4.20-5.40); White Blood Count 1.9 K/mm3 (4.8-10.8)
[2022-03-19 22:17] LABS: Coronavirus 19, PCR Detected (NotDetected)
[2022-03-19 22:20] LABS: Alanine Aminotransferase 20 U/L (12-78); Albumin Level 4.4 g/dl (3.5-5.0); Albumin/Globulin Ratio 1.4 (1.1-1.8); Alkaline Phosphatase 102 U/L (38-126); Anion Gap 17.7 mEq/L (5-15); Aspartate Amino Transferase 42 U/L (14-36); Bilirubin,Total 0.2 mg/dl (0.2-1.3); Blood Urea Nitrogen 11 mg/dl (7-17); Calcium 9.3 mg/dl (8.4-10.2); Carbon Dioxide 27 mmol/L (22.0-30.0); Chloride 94 mmol/L (98-107); Creatinine Clearance Estimated 75 mL/min (50-200); Estimated Glomerular Filt Rate 100 ml/min (>60); GFR (African American) 121 ML/MIN (>60); Globulin 3.2 g/dL (1.3-3.2); Glucose 86 mg/dl (74-100); Lactic Acid 0.7 mmol/L (0.7-2.1); Potassium 3.7 mmoL/L (3.5-5.1); Sodium 135 mmol/L (136-145); Total Protein,Serum 7.6 g/dl (6.3-8.2)
[2022-03-19 22:31] VITALS: BP 155/80; PULSE 62; O2SAT 91
--- NOTE | 2022-03-19 22:36 | PC.NURSE ---
Dr. De Jesus at speaking with pt/family
[2022-03-19 22:37] LABS: Procalcitonin 0.072 ng/mL (0.0-2.0)
--- NOTE | 2022-03-19 22:40 | HMH.EDWEAK ---
Discharge Plan Disposition Patient Disposition: Admitted as Observation Clinical Impressions Clinical Impression: COVID-19, Leukopenia Discharge ED Provider: Blaise Hagen Weakness HPI General Chief complaint: Weakness Stated complaint: weakness Time Seen by Provider: 03/19/22 22:40 Mode of Arrival: Wheelchair Source of Information: Patient and Medical Record Limitations: No Limitations Description of Symptoms (Recalled from ER Triage Doc. by RN): pt c/o weakness,Garcia, fever, body chills that started yesterday History of Present Illness HPI Narrative: pt over the last 2 days has not felt well with achey and chills with fever - no sig cough and no rash but weakness and dec po intake MD Complaint: generalized weakness Onset (ago): day(s) Duration: intermittent Location: generalized Migration: none Severity: moderate Associated symptoms: denies other symptoms Related Data Home Medications Medication Instructions Recorded Confirmed duloxetine 60 mg capsule,delayed 60 mg PO BID Depression 09/09/17 03/19/22 release ropinirole 2 mg tablet,extended 2 mg PO NEEDED PRN RLS 09/09/17 03/19/22 release 24 hr albuterol sulfate 90 mcg/actuation 2 puffs inhalation Q4HP PRN 11/13/17 03/19/22 aerosol inhaler Shortness Of Breath Or Wheezing ferrous gluconate 324 mg (38 mg 324 mg PO DAILY Supplement 12/18/17 03/19/22 iron) tablet fluticasone furoate 100 1 inh inhalation DAILY Breathing 03/04/21 03/19/22 mcg-vilanterol 25 mcg/dose problems inhalation powder vit E 12 mg-vit E mix 50 2 each PO DIRECTED Supplement 03/04/21 03/19/22 mg-squalene 6.6 mg-phytosterol 3.3 mg capsule linezolid 600 mg tablet 600 mg PO BID Infection 09/19/21 03/19/22 diclofenac sodium 20 2 pump topical BID Pain 12/26/21 03/19/22 mg/gram/actuation (2 %) topical soln metered-dose pump hydromorphone (PF) 1 mg/mL in 0.9% 0.5 mg intrathecal CONT CHRONIC 12/26/21 03/19/22 sodium chloride intravenous syringe PAIN Previous Rx's Medication Instructions Recorded pregabalin 100 mg capsule 100 mg PO TID NERVE PAIN #90 caps 02/24/22 Allergies Allergy/AdvReac Type Severity Reaction Status Date / Time Sulfa (Sulfonamide Allergy Unknown NA-NAUSEA/V Verified 03/18/22 14:57 Antibiotics) OMITING [SULFA (SULFONAMIDE ANTIBIOTICS)] PFSH PFSH Medical History Cervical (neck) region somatic dysfunction Degenerated intervertebral disc Surgical History History of cervical spinal surgery Family History Other No significant family history Social History Smoking Status: Never smoker second hand exposure: No alcohol intake: never substance use type: denies use current occupational status: retired Travel in the last 8 weeks: None household members: none housing: house current occupational exposures/hazards: No caffeine: Yes ROS Obtained: Yes All systems reviewed & no additional complaints except as documented Physical Exam General General appearance: alert and in no apparent distress Head Head exam: normocephalic Eye Eye exam: Present PERRL and EOMI; Absent scleral icterus or jaundice ENT ENT exam: Present mucous membranes dry Neck Neck exam: Present trachea midline; Absent meningismus Respiratory Respiratory exam: Present normal lung sounds bilaterally; Absent respiratory distress Cardiovascular Cardiovascular exam: Present regular rate and systolic murmur; Absent rubs Abdominal Exam Abdominal exam: Present soft Extremities Exam Extremities exam: Present edema; Absent calf tenderness Neurological Exam Neurological exam: Present alert, oriented X3 and CN II-XII intact; Absent motor sensory deficit Skin Skin exam: Absent rash Medical Decision Making Medical Records
[2022-03-19 22:48] LABS: C-Reactive Protein 33.2 mg/L (0-4)
--- NOTE | 2022-03-19 22:48 | PC.NURSE ---
Pt given drink per request
[2022-03-19 23:01] VITALS: BP 168/85; PULSE 58; O2SAT 93
[2022-03-19 23:03] LABS: Microscopic, Urine URINE MICROSCOPIC (MICROSCOPIC)
[2022-03-19 23:09] LABS: Erythrocyte Sedimentation Rate 32 mm/hr (0-30)
--- NOTE | 2022-03-19 23:14 | PC.NURSE ---
Dr. Hagen speaking with Dr. Ann
[2022-03-19 23:31] VITALS: BP 154/77; PULSE 60; O2SAT 93
[2022-03-19 23:46] LABS: Appearance,Urine CLEAR (Clear); Bilirubin,Urine Negative (Negative); Blood, Urine 1+ (Negative); Color,Urine YELLOW (Yellow); Glucose,Urine (UA) Negative (Negative); Ketones,Urine 1+ (Negative); Leukocyte Esterase,Urine Negative (Negative); Nitrate,Urine Negative (Negative); PH,Urine 6.5 (5.0-8.5); Protein,Urine 1+ (Negative); Urobilinogen,Urine 0.2 EU/dl (0.2)
[2022-03-20] VITALS (7 sets, daily range): BP systolic 131–172; BP diastolic 71–92; PULSE 52–99; RESP 14–18; TEMP 36.6–37.7; O2SAT 96–99; BMI 32.9
--- NOTE | 2022-03-20 00:01 | PC.NURSE ---
Contact number for Daughter in law, Shaista,
[2022-03-20 00:02] LABS: RBC,Urine Occasional #/hpf (0-3)
--- NOTE | 2022-03-20 00:52 | PC.NURSE ---
Pt incontinent of bladder. Pt changed and repositioned for comfort. Pt rectal temperature obtained 101.6. No other needs voiced at this time.
--- NOTE | 2022-03-20 01:08 | PC.NURSE ---
patient up to floor via stretcher @ this time.
--- NOTE | 2022-03-20 05:27 | PC.NURSE ---
pt admitted this shift. she is a&ox4. she has c/o weakness and headache amd had no other complaints. pt was medicated prn per mar for fever this shift. she has been incontinent, pt has been changed/cleaned in bed and is now using the purewick. she remains on 2L NC, o2 sats >90%.
[2022-03-20 06:44] LABS: Basophils % 0.6 % (0.1-2.0); Eosinophils % 0.5 % (0.1-12.0); Hematocrit 37.2 % (37.0-47.0); Hemoglobin 12.3 g/dL (12.2-16.2); Lymphocytes # 0.7 K/mm3 (0.7-4.5); Lymphocytes % 38.5 % (10-50); Mean Corpuscular Volume 100.1 fl (81-99); Mean Platelet Volume 7.4 fl (7.4-10.4); Monocytes # 0.2 K/mm3 (0.1-1.0); Monocytes % 13.1 % (1.7-9.3); Neutrophils # 0.8 K/mm3 (1.8-7.8); Neutrophils % 47.3 % (37.0-80.0); Platelet Count 121 K/mm3 (142-424); Red Blood Count 3.71 M/mm3 (4.20-5.40); Red Cell Distribution Width 14.1 % (11.5-17.5); White Blood Count 1.7 K/mm3 (4.8-10.8)
[2022-03-20 07:15] LABS: Blood Urea Nitrogen 10 mg/dl (7-17); Calcium 8.8 mg/dl (8.4-10.2); Carbon Dioxide 23 mmol/L (22.0-30.0); Chloride 102 mmol/L (98-107); Creatinine Clearance Estimated 78 mL/min (50-200); Estimated Glomerular Filt Rate 124 ml/min (>60); GFR (African American) 150 ML/MIN (>60); Glucose 67 mg/dl (74-100); Sodium 137 mmol/L (136-145)
--- NOTE | 2022-03-20 09:02 | EXP.HP ---
History of Present Illness *Admission Date: 03/19/22 *Reason for visit:: weakness *History of present illness: Ms. Vega is a 66-year-old female who just recently had a right knee injection and adjustment of her pain pump on 03/18/2022. She stated she was feeling poorly over the weekend with some body aches and fatigue. This persisted and her weakness continued to get worse. She states she has been slightly nauseated and has not felt like eating. Her daughter made her come to the emergency room for further evaluation and treatment. She was found to have COVID and leukopenia. She was admitted for further evaluation and treatment. She denies any respiratory symptoms but does have oxygen in place this morning. She has had covid vaccines. [facility] Medical History (Updated 03/20/22 @ 09:14 by CYNTHIA Starks) Anemia Arthritis Asthma Cervical (neck) region somatic dysfunction Chronic pain Degenerated intervertebral disc Depression Fibromyalgia History of renal dialysis History of TB (tuberculosis) Iron deficiency anemia Peptic ulcer disease Type 2 diabetes mellitus Surgical History (Updated 03/20/22 @ 09:08 by CYNTHIA Starks) History of cervical spinal surgery History of colonoscopy History of esophagogastroduodenoscopy (EGD) Family History (Updated 03/20/22 @ 09:10 by CYNTHIA Starks) Diabetes Coronary artery disease Cancer Hypertension Social History (Updated 03/20/22 @ 01:31 by Milena Pradhan RN) Smoking Status: Never smoker second hand exposure: No alcohol intake: never substance use type: denies use current occupational status: retired Travel in the last 8 weeks: None household members: none housing: house current occupational exposures/hazards: No caffeine: Yes Review of Systems Constitutional Constitutional: Reports fatigue, Denies fever(s), Denies headache(s) and Reports weakness Eyes Eyes: Denies blurry vision and Denies diplopia ENT Ears, Nose, Mouth, and Throat: Denies headache(s), Denies nasal congestion, Denies sore throat and Denies vertigo *Cardiovascular Cardiovascular: Denies chest pain, Denies dyspnea and Denies leg edema *Respiratory Respiratory: Denies cough and Denies dyspnea *Gastrointestinal Gastrointestinal: Denies abdominal pain, Denies loose stools, Reports nausea and Denies vomiting *Genitourinary Genitourinary: Denies dysuria *Musculoskeletal Musculoskeletal: Denies arthralgias and Reports myalgias *Neurologic Neurologic: Denies headache(s), Denies vertigo and Reports weakness Endocrine Endocrine: Reports fatigue Meds Home Medications and Allergies Home Medications Medication Instructions Recorded Confirmed Type duloxetine 60 mg capsule,delayed 120 mg PO DAILY Depression 09/09/17 03/20/22 History release vit E 12 mg-vit E mix 50 2 each PO DIRECTED Supplement 03/04/21 03/19/22 History mg-squalene 6.6 mg-phytosterol 3.3 mg capsule diclofenac sodium 20 2 pump topical BID Pain 12/26/21 03/19/22 History mg/gram/actuation (2 %) topical soln metered-dose pump hydromorphone (PF) 1 mg/mL in 0.9% 0.5 mg intrathecal CONT CHRONIC 12/26/21 03/19/22 History sodium chloride intravenous syringe PAIN pregabalin 100 mg capsule 100 mg PO TID NERVE PAIN #90 caps 02/24/22 03/19/22 Rx ropinirole 2 mg tablet 2 mg PO HSP PRN RESTLESS LEGS 03/20/22 03/20/22 History New Prescriptions to Start Prescriptions: Allergies Allergy/AdvReac Type Severity Reaction Status Date / Time Sulfa (Sulfonamide Allergy Unknown NA-NAUSEA/V Verified 03/18/22 14:57 Antibiotics) OMITING [SULFA (SULFONAMIDE ANTIBIOTICS)] Exam Data for Last 24 hours Vital signs and Labs for Last 24 Hours: Temp Pulse Resp BP Pulse Ox 98.5 F 54 L 16 149/71 H 96 03/20/22 04:37 03/20/22 04:37 03/20/22 04:37 03/20/22 04:37 03/20/22 04:37 Laboratory Results - last 24 hr 03/19/22 21:30: SARS-CoV-2 (PCR) Detected A, Influenza A Untyp
--- NOTE | 2022-03-20 15:52 | DIET.NUTRFU ---
Per patients report she has had 4 episodes of loose stools, refused breakfast and lunch. Agreed to try chicken noodle. declined any supplements at this time.
--- NOTE | 2022-03-20 16:44 | PC.NURSE ---
PT IS RESTING IN BED. ALERT AND ORIENTED X4. PT TOLERATED A SHOWER AND SITTING UP IN THE CHAIR THIS SHIFT. PT'S STATED SHE WAS VERY UPSET ABOUT BEING ON THE ANTIBIOTICS B/C SHE THINKS THEY ARE THE REASON WHY SHE HAS STARTED HAVING DIARRHEA. AMBULATES TO THE BATHROOM WITH 1 ASSIST. LUNG SOUNDS CLEAR. ABDOMEN SOFT/NON TENDER WITH ACTIVE BOWEL SOUNDS. O2 SATURATION 93-97% ON ROOM AIR. WILL CONTINUE TO MONITOR.
[2022-03-21] VITALS: BP 147/77; PULSE 63; RESP 18; TEMP 36.8; O2SAT 95
[2022-03-21 04:00] VITALS: BP 109/56; PULSE 56; RESP 18; TEMP 37.1; O2SAT 91
[2022-03-21 04:59] VITALS: BMI 31.4
--- NOTE | 2022-03-21 05:40 | PC.NURSE ---
pt has rested well this shift. A&OX4. ambulates to and from bathroom with standby assistance. pt has c/o a few episodes of diarrhea. no c/o pain or SOA. O2 sats >90% on RA. lung sounds clear. CB in reach
[2022-03-21 07:41] LABS: Basophils % 0.6 % (0.1-2.0); Eosinophils % 0.4 % (0.1-12.0); Hematocrit 37.8 % (37.0-47.0); Hemoglobin 12.4 g/dL (12.2-16.2); Lymphocytes # 0.7 K/mm3 (0.7-4.5); Lymphocytes % 37.8 % (10-50); Mean Corpuscular HGB Conc 32.7 g/dL (31.8-35.4); Mean Corpuscular Hemoglobin 32.9 pg (27.0-31.2); Mean Corpuscular Volume 100.8 fl (81-99); Mean Platelet Volume 8.3 fl (7.4-10.4); Monocytes # 0.2 K/mm3 (0.1-1.0); Monocytes % 10.9 % (1.7-9.3); Neutrophils # 0.9 K/mm3 (1.8-7.8); Neutrophils % 50.3 % (37.0-80.0); Platelet Count 147 K/mm3 (142-424); Red Blood Count 3.75 M/mm3 (4.20-5.40); Red Cell Distribution Width 14.1 % (11.5-17.5); White Blood Count 1.9 K/mm3 (4.8-10.8)
--- NOTE | 2022-03-21 07:43 | HMH.PTEV ---
Physical Therapy Evaluation Rehab PT IP Evaluation Start: 03/20/22 17:45 Freq: .once Status: Active Protocol: Document 03/21/22 07:41 EMILIE (Rec: 03/21/22 07:43 SUSANCHELSEA [id number]) Subjective/History History History Ms. Vega is a 66-year-old female who just recently had a right knee injection and adjustment of her pain pump on 03/18/2022. She stated she was feeling poorly over the weekend with some body aches and fatigue. This persisted and her weakness continued to get worse. She states she has been slightly nauseated and has not felt like eating. Her daughter made her come to the emergency room for further evaluation and treatment. She was found to have COVID and leukopenia. She was admitted for further evaluation and treatment. copied from H&P Subjective Subjective Pt reprots feeling fine no sig complaints, just achy in her back Rehab PT IP Eval Objective Appearance Patient Behavior Appropriate,Cooperative Patient Orientation Place,Name,Birthday,Year, Situation Difficulty following instructions none Speech Pattern Clear,Appropriate Ambulation Patient Able to Ambulate Yes Ambulation Observation IP General Gait Pattern Observation Wide Based Gait,Shuffling Step Ambulation Distance (feet) 25 Ambulation Assistive Device None Ambulation Ability Supervision/Stand by Balance Ability to Arise Able, uses arms to help Sitting Balance Steady, safe Standing Balance Narrow stance w/o support Dynamic Sitting Balance Ability Normal Dynamic Standing Balance Ability Good Transfers Bed Transfer Ability Independent Chair Transfer Ability Independent Sit to Stand Bed Transfer Ability Independent Sit to Stand Chair Transfer Ability Independent Rehab PT IP prob,goals,plan Problems Date of Evaluation: 03/21/22 Rehab Potential Rehab Potential Innapropriate for Skilled Therapy Discharge Plan PT Discharge Plan Pt has no need for skilled therapy at this time - pt safe
[2022-03-21 07:52] LABS: Anion Gap 15.5 mEq/L (5-15); Blood Urea Nitrogen 11 mg/dl (7-17); Calcium 8.9 mg/dl (8.4-10.2); Carbon Dioxide 26 mmol/L (22.0-30.0); Chloride 102 mmol/L (98-107); Creatinine Clearance Estimated 74 mL/min (50-200); Estimated Glomerular Filt Rate 100 ml/min (>60); GFR (African American) 121 ML/MIN (>60); Glucose 73 mg/dl (74-100); Potassium 3.5 mmoL/L (3.5-5.1); Sodium 140 mmol/L (136-145)
[2022-03-21 08:00] VITALS: BP 117/60; PULSE 64; RESP 16; TEMP 36.7; O2SAT 95
--- NOTE | 2022-03-21 08:24 | EXP.ACUTE.PN ---
Subjective *Date: 03/21/22 *Time: 08:24 Interval history: Patient feels better this morning. She did have some diarrhea overnight. She is anxious to go home today. She is tolerating a regular diet. She had a PT evaluation this morning and did well. Medical Exam Vital signs and Labs for Last 24 Hours: Vital Signs Temp Pulse Resp BP Pulse Ox 03/21/22 04:00 98.7 F 56 L 18 109/56 L 91 L 03/21/22 00:00 98.2 F 63 18 147/77 H 95 03/20/22 20:00 97.9 F 99 H 16 148/85 H 97 03/20/22 15:30 98.1 F 52 L 17 158/92 H 97 03/20/22 11:53 98.0 F 58 L 16 131/77 96 Intake and Output 03/20/22 03/21/22 03/21/22 23:59 07:59 15:59 Intake Total 120 / 907 444 / 444 Output Total 0 / 0 Balance 120 / 307 444 / 444 Intake: Intake, Oral Amount 120 / 684 444 / 444 Output: Output, Urine Amount 0 / 0 Other: Number of Voids 1 Number of Unmeasured Voids 1 Weight 184 lb 6.4 oz Patient Weight 03/21/22 23:59 Weight 184 lb 6.4 oz Laboratory Results - last 24 hr 03/21/22 06:39: WBC 1.9 L*, RBC 3.75 L, Hgb 12.4, Hct 37.8, MCV 100.8 H, MCH 32.9 H, MCHC 32.7, RDW 14.1, Plt Count 147, MPV 8.3, Neut % (Auto) 50.3, Lymph % (Auto) 37.8, [place] % (Auto) 10.9 H, Eos % (Auto) 0.4, Baso % (Auto) 0.6, Neut # (Auto) 0.9 L*, Lymph # (Auto) 0.7, [place] # (Auto) 0.2, Eos # (Auto) 0.0, Baso # (Auto) 0.0 03/21/22 06:39: Sodium 140, Potassium 3.5, Chloride 102, Carbon Dioxide 26, Anion Gap 15.5 H, BUN 11, Creatinine 0.60, Estimated Creat Clear 74, Estimated GFR 100, Est GFR ( Amer) 121, Glucose 73 L, Calcium 8.9 I & O for Labs for Last 24 Hours: Intake & Output 03/18/22 03/19/22 03/20/22 03/21/22 23:59 23:59 23:59 23:59 Intake Total 463 / 907 444 / 444 Output Total 600 / 600 0 / 0 Balance -137 / 307 444 / 444 Weight 187 lb 193 lb 1.293 oz 184 lb 6.4 oz Constitutional: Present no acute distress Respiratory: Present CTA bilaterally Cardiac: Present Reg Rate and Rhythm GI: Present soft and normal bowel sounds; Absent tenderness Assessment and Plan *Assessment and plan (1) COVID-19: Status: Acute Category: Medical Code(s): U07.1 - COVID-19 (2) Leukopenia: Status: Acute Category: Medical Code(s): D72.819 - Decreased white blood cell count, unspecified (3) Type 2 diabetes mellitus: Status: Acute Category: Medical Code(s): E11.9 - Type 2 diabetes mellitus without complications (4) History of TB (tuberculosis): Status: Acute Category: Medical Code(s): Z86.11 - Personal history of tuberculosis (5) Cervical (neck) region somatic dysfunction: Status: Acute Category: Medical Code(s): M99.01 - Segmental and somatic dysfunction of cervical region (6) Asthma: Status: Acute Category: Medical Code(s): J45.909 - Unspecified asthma, uncomplicated (7) Anemia: Status: Acute Category: Medical Code(s): D64.9 - Anemia, unspecified Plan OK for discharge today. Patient does not want to take antibiotics after discharge.
--- NOTE | 2022-03-21 10:55 | PC.NURSE ---
BIlateral AC PIV removed per pt request d/t discharge order. Pt is dressed and ready to go. All discharge papers signed. Pt daughter is en route to get pt.
--- NOTE | 2022-03-24 13:35 | CARE MANAGER ---
Spoke with patient for post-discharge follow-up phone interview. Patient states that she is having copious amounts of diarrhea, she called MD office and asked for meds. This binder caser did call MD office and they are aware.
--- NOTE | 2022-03-24 14:34 | EXP.DC.SUM ---
General Admission date:: 03/20/22 Discharge date: 03/21/22 HPI HPI HPI: Ms. Vega is a 66-year-old female who just recently had a right knee injection and adjustment of her pain pump on 03/18/2022. She stated she was feeling poorly over the weekend with some body aches and fatigue. This persisted and her weakness continued to get worse. She states she has been slightly nauseated and has not felt like eating. Her daughter made her come to the emergency room for further evaluation and treatment. She was found to have COVID and leukopenia. She was admitted for further evaluation and treatment. She denies any respiratory symptoms but does have oxygen in place this morning. She has had covid vaccines. Hospital Course Hospital Course Hospital Course: Patient was admitted and her chest x-ray showed reticular opacities at the right lung base reflecting atelectasis versus pneumonia. She was started on COVID protocol as well as antibiotics for the possible pneumonia. By 03/21/2022, she was feeling better. She had had some diarrhea throughout the night but she was anxious to go home. She was tolerating a regular diet and had a PT evaluation and did well. She was discharged home and did not want to take antibiotics after discharge. Exam Data for Last 24 hours Vital signs and Labs for Last 24 Hours: Temp Pulse Resp BP Pulse Ox 98.0 F 64 16 117/60 95 03/21/22 08:00 03/21/22 08:00 03/21/22 08:00 03/21/22 08:00 03/21/22 08:00 Narrative: Constitutional Constitutional: no acute distress (Does not appear to feel well) *Routine HEENT Exam Head: Present normocephalic and atraumatic Eye: Present EOMI and PERRL ENT: Present mucous membranes moist *Routine Neck Exam Neck: Present supple and full ROM *Routine Respiratory Exam Respiratory: Present CTA bilaterally *Routine Cardiovascular Exam Cardiovascular: Present RRR *Routine Abdominal Exam Abdominal: Present soft and normoactive bowel sounds; Absent tenderness *Routine Rectal Exam Rectal:: deferred *Routine Genitalia Exam Genitalia:: deferred *Routine Extremities Exam Extremities: Absent cyanosis, clubbing or edema *Routine Skin Exam Skin: Present intact; Absent erythema *Routine Neurological Exam Neurological: Present alert and oriented X3 Results Data Completed and Pending Labs on day of discharge: Preliminary micro results at discharge 03/19/22 21:53 Blood Culture - Preliminary Blood NO GROWTH AFTER 48 HOURS 03/19/22 21:53 Blood Culture - Preliminary Blood NO GROWTH AFTER 48 HOURS DS: Diagnosis Discharge Diagnosis (1) COVID-19: Status: Acute (2) Leukopenia: Status: Acute (3) Type 2 diabetes mellitus: Status: Acute (4) History of TB (tuberculosis): Status: Acute (5) Cervical (neck) region somatic dysfunction: Status: Acute (6) Asthma: Status: Acute (7) Anemia: Status: Acute Meds Home Medications and Allergies Home Medications Medication Instructions Recorded Confirmed Type duloxetine 60 mg capsule,delayed 120 mg PO DAILY Depression 09/09/17 03/20/22 History release vit E 12 mg-vit E mix 50 2 each PO DIRECTED Supplement 03/04/21 03/19/22 History mg-squalene 6.6 mg-phytosterol 3.3 mg capsule diclofenac sodium 20 2 pump topical BID Pain 12/26/21 03/19/22 History mg/gram/actuation (2 %) topical soln metered-dose pump hydromorphone (PF) 1 mg/mL in 0.9% 0.5 mg intrathecal CONT CHRONIC 12/26/21 03/19/22 History sodium chloride intravenous syringe PAIN ropinirole 2 mg tablet 2 mg PO HSP PRN RESTLESS LEGS 03/20/22 03/20/22 History ascorbic acid (vitamin C) 500 mg 500 mg PO QID #0 tabs 03/21/22 Rx tablet (Vitamin C) ergocalciferol (vitamin D2) 1,250 50,000 unit PO WEEKLY #0 caps 03/21/22 Rx mcg (50,000 unit) capsule zinc sulfate 50 mg zinc (220 mg) 220 mg PO DAILY #0 caps 03/21/22 Rx capsule pregabalin 100 mg capsule 100 mg PO TID NERVE PAIN #90
== END 2022-03-21 11:32 | disposition home or self-care (01) ==
LOC: ER 20:37 → 2ND 23:42
PROVIDERS: Admitting Provider Internal Medicine Adolescent Medicine; Emergency Provider Emergency Medicine; PCP Family Medicine; Visit Provider Family Medicine
DX: U07.1 COVID-19 (principal); E11.9 Type 2 diabetes mellitus without complications; Z86.11 Personal history of tuberculosis; Z79.899 Other long term (current) drug therapy; M99.01 Segmental and somatic dysfunction of cervical region
CPT/HCPCS: G0378; 36415; 71045; 80048; 80053; 81001; 83605; 84145; 85025; 85651; 86140; 87040; 93005; 97162; 99285; C9803; J0456; J0696; U0003; U0005

== ENCOUNTER → 2022-04-29 09:47 | Outpatient (POV) | payer MEDICARE, SELFPAY ==
[2022-04-29 10:00] VITALS: BP 140/74; PULSE 80; RESP 20; BMI 32.5
--- NOTE | 2022-04-29 10:59 | EXP.PAIN.SOA ---
[facility] Pain Management SOAP Note Subjective:: Patient is a pleasant 66-year-old female who presents today for follow-up. We are currently treating the patient for degenerative disc disease of lumbar spine multilevels with lumbar radiculopathy symptoms, osteoarthritis bilateral knees. Today the patient rates her pain a 9 out of 10. Patient denies any new trauma or injury. Patient denies any change location or type of pain she experiences. Patient states the pain is all in her low back and legs as well as occasional pains in her shoulders. Patient does use compounding cream that works well however temporary. Patient is currently managed with pregabalin 100 mg 3 times a day. Patient denies any side effects from this medication. She states this medication does help her neuropathy symptoms. She is requesting a refill as well as a increase of this medication. Patient is currently a intrathecal pain pump at home refill patient. At her last refill appointment date she was given an increase and is currently managed with Dilaudid 5 mg/mL with a daily dose of 1.44 mg/day. Patient does have her PTC device set up to provide additional boluses every 6 hours. Patient states she does use all of her boluses on a daily basis. Patient previously was on ropinirole that did help with her leg pain however she states that she has not had this prescription for a while and is requesting a refill. Patient denies any problems with this previous medication. Her Don is [id number]. It is been reviewed and appropriate. Review of Systems: General: No recent weight changes, no fever, no sleep disturbances Respiratory: No cough, no shortness of air, no recurring pulmonary infections Cardiovascular/peripheral vascular: No chest pain, no palpitations, no edema, no shortness of breath Gastrointestinal: No new onset incontinence, normal bowel movements reported Genitourinary: No new onset incontinence Musculoskeletal: Low back pain Psychiatric: [Normal mood/affect] Neurological: [Denies weakness in extremities], [denies balance issues] Objective:: Physical Exam: General: Alert and oriented x3, no acute distress, pleasant and cooperative Lungs: Respirations even and unlabored, symmetrical chest expansion Eyes: PERRL Musculoskeletal: Flexion and extension of lumbar [spine] somewhat guarded secondary to pain, [antalgic gait noted] Neurological: Speech clear, no gross sensory deficit Assessment:: Degenerative disc disease of lumbar spine multilevels with lumbar radiculopathy symptoms, osteoarthritis bilateral knees. Plan:: Patient continues to experience significant pain in her low back and legs. Patient did have limited range of motion of her lumbar spine during today's visit. I will reorder the patient's ropinirole 1 mg at at bedtime and provide a 30-day supply of this medication. We will refill the patient's pregabalin 100 mg and change it to 4 times daily. I will give a 1 month supply of this medication. Patient is a at home refill AI S patient. Patient will contact our office if she needs additional follow-up visits. Patient has been instructed to contact the clinic with any concerns before the next appointment. Dr. Tsang has reviewed this note and agrees with this plan of care. This note was dictated using voice recognition software and make contain errors or omissions. -- It Is medically necessary for this patient to continue to have their intrathecal pump refilled at regular intervals. This patient had an intrathecal pain pump implanted after meeting criteria of chronic intractable pain for greater than 3 months and failing conservative treatments. Patient has committed and been compliant to the treatment plan and all planned follow up care. Since implantation of the intrathecal pain pump, the patient has had decreased pain and been more functional. Oral medications have been reduced including intake of oral opioids. Patient continues to do well with intrathecal therapy with decr
== END | disposition home or self-care (01) ==
PROVIDERS: Visit Provider Nurse Practitioner Family
DX: M51.16 Intervertebral disc disorders with radiculopathy, lumbar region (principal); M17.0 Bilateral primary osteoarthritis of knee
CPT/HCPCS: 99212; G0463

== ENCOUNTER → 2022-07-30 09:54 | Outpatient (POV) | payer MEDICARE, SELFPAY ==
[2022-07-30 10:45] VITALS: BP 131/73; PULSE 80; RESP 20; BMI 32.0
--- NOTE | 2022-07-30 12:47 | EXP.PAIN.SOA ---
[facility] Pain Management SOAP Note Subjective:: Patient is a pleasant 67-year-old female who presents today for follow-up. We are currently treating the patient for degenerative disc disease of lumbar spine multilevels with lumbar radiculopathy symptoms, osteoarthritis bilateral knees. Today she rates her pain a 10 out of 10. Patient denies any new trauma or injury. Patient denies any change location or type of pain she experiences. She does state that she continues to have significant pain in her back that radiates into her bilateral lower extremities. She describes this as a aching, throbbing, pressure sensation that is worse with increased activity she states that it is interfering with her ability to perform activities of daily living such as even light housework and that she frequently has to take multiple breaks. She states that doing the dishes yesterday took 2 hours to complete due to the multiple breaks it required with her increased pain. Patient is currently managed with an intrathecal pain pump of Dilaudid 5 mg/mL with a daily dose of 1.728 mg/day. Patient denies any side effects from this medication. She is using all of her boluses in a 24-hour. She is in [facility] client who does at home refills. Patient is currently prescribed pregabalin 100 mg 4 times a day and ropinirole 2 mg at bedtime as needed. She does state that she does not take the ropinirole on a regular basis due to extreme fatigue that carries over into the next day. Patient does continue to use her compounding cream every day for some additional relief. Her Don is [id number]. Its been reviewed and appropriate. Review of Systems: General: No recent weight changes, no fever, no sleep disturbances Respiratory: No cough, no shortness of air, no recurring pulmonary infections Cardiovascular/peripheral vascular: No chest pain, no palpitations, no edema, no shortness of breath Gastrointestinal: No new onset incontinence, normal bowel movements reported Genitourinary: No new onset incontinence Musculoskeletal: Low back pain, leg pain Psychiatric: [Normal mood/affect] Neurological: [Denies weakness in extremities], [denies balance issues] Objective:: Physical Exam: General: Alert and oriented x3, no acute distress, pleasant and cooperative Lungs: Respirations even and unlabored, symmetrical chest expansion Eyes: PERRL Musculoskeletal: Flexion and extension of lumbar [spine] somewhat guarded secondary to pain, [antalgic gait noted] Neurological: Speech clear, no gross sensory deficit Assessment:: Degenerative disc disease of lumbar spine multilevels with lumbar radiculopathy symptoms, osteoarthritis bilateral knees Plan:: Patient is experiencing worsening pain in her low back with symptoms radiating into her lower extremities. Patient did have limited range of motion of her lumbar spine during today's visit. I have discussed with the patient that she may benefit from a lumbar epidural steroid injection. Risk and benefits were discussed with the patient and she would like to proceed forward with this plan of care. Patient is not on any blood thinners. I have also discussed with the patient to stop taking her ropinirole at this time and I will prescribe pramipexole 1.5 mg at bedtime and provide a 2-week supply of this medication. I have counseled the patient to contact our office if she would like refills on this medication. I have discussed with the patient that if she does not get significant relief following this lumbar epidural that we will order additional lumbar imaging. Patient will be scheduled for a LESI L3-L4. Patient has been instructed to contact the clinic with any concerns before the next appointment. Dr. Tsang has reviewed this note and agrees with this plan of care. This note was dictated using voice recognition software and make contain errors or omissions. [facility] Disclaimer: The information contained in this section may have been updated after the patient was seen,
== END | disposition home or self-care (01) ==
PROVIDERS: PCP Family Medicine; Visit Provider Nurse Practitioner Family
DX: M51.16 Intervertebral disc disorders with radiculopathy, lumbar region (principal); M17.0 Bilateral primary osteoarthritis of knee
CPT/HCPCS: 99212; G0463

== ENCOUNTER 2022-08-05 14:34 | Day surgery (SDC) | payer MEDICARE, SELFPAY ==
[2022-08-05 14:48] VITALS: BP 141/84; PULSE 70; RESP 18; TEMP 36.4; O2SAT 91; BMI 30.7
[2022-08-05 14:49] VITALS: BP 138/71; PULSE 68; RESP 18; O2SAT 98
[2022-08-05 14:53] VITALS: BP 138/71; PULSE 68; RESP 18; O2SAT 98
--- NOTE | 2022-08-05 14:55 | EXP.PAIN.PRO ---
Procedure Date: 08/05/22 Time: 14:50 Anesthesiologist:: Jose Gale CRNA Complications:: None Pre-procedure Diagnosis:: Degenerative disc disease lumbar spine multilevels. Lumbar radiculopathy. Lumbar postlaminectomy syndrome. Chronic pain syndrome. Post-procedure Diagnosis:: Same. Indications for Procedure:: Very pleasant 67-year-old female that comes our clinic today for lumbar epidural steroid injection at L3-4. Patient currently being managed with intrathecal pain pump of Dilaudid 5 mg/mL at 1.728 mg/day. Patient having increased low back pain with bilateral hip and leg radicular symptoms. Procedure Details:: Procedure: Lumbar epidural steroid injection under fluoroscopy Informed consent was obtained and the risks and benefits of the procedure were explained to the patient. The patient was taken to the procedure room and noninvasive monitors placed, including noninvasive blood pressure cuff and pulse oximeter. The back was viewed using C-arm Fluoroscopy and prepped using Chloraprep as a cleansing solution and the L5-S1 interspace was palpated. Skin and subcutaneous tissues were anesthetized using lidocaine 1.5% and a 25-gauge needle. After this, an 18-gauge Touhy epidural needle was placed into the L5-S1 interspace and advanced using fluoroscopic guidance and loss of resistance to air until the epidural space was encountered. After confirmation of needle placement in the epidural space, with dye, a solution containing normal saline, 3 mL and Depo-Medrol 80 mg were incrementally injected into the lumbar epidural space. The patient tolerated the procedure well with no complications. The patient was observed in the Pain Clinic and then discharged home neurologically intact. Plan and Disposition:: Patient was discharged without incident.
[2022-08-05 15:02] VITALS: BP 126/70; PULSE 64; RESP 18; O2SAT 92
== END 2022-08-05 15:02 | disposition home or self-care (01) ==
PROVIDERS: PCP Family Medicine; Visit Provider Nurse Anesthetist, Certified Registered
DX: M51.16 Intervertebral disc disorders with radiculopathy, lumbar region (principal); M96.1 Postlaminectomy syndrome, not elsewhere classified; G89.4 Chronic pain syndrome
CPT/HCPCS: 62323

== ENCOUNTER → 2022-08-21 15:28 | Outpatient (POV) | payer MEDICARE, SELFPAY ==
[2022-08-21 15:40] VITALS: BP 119/64; PULSE 79; RESP 18; O2SAT 97; BMI 37.8
--- NOTE | 2022-08-21 15:42 | A.OFFVIS_ITS ---
[facility] Pain Management SOAP Note Subjective:: This patient is a very pleasant 67-year-old female that comes our clinic today for follow-up visit after receiving lumbar epidural steroid injection on 08/05/2022. She reports 3 to 4 days of significant improvement terms of her low back pain. However, she reports after 3 to 4 days all her pain returned in its entirety. Upon examination patient has extreme difficulty transitioning from sitting to standing. She has extreme point tenderness over the bilateral sacroiliac joints. She has positive Anderson's test. Positive Gaenslen's test. Positive bilateral sacroiliac joint compression test. She rates her pain 8/10. Were currently managing the patient with intrathecal pain pump of hydromorphone 10 mg/mL at 1.7280 mg/day. Patient not interested in having the intrathecal pain pump turned up at this time. I discussed in detail with the patient regarding sacroiliac joint injections. She wishes to proceed. 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 Patient does continue with home exercise program which she states has been very difficult secondary to the pain. Objective:: Patient is awake alert [place] x3. In no acute distress. Flexion-extension lumbar spine very guarded secondary to pain. Deep tendon reflexes upper lower extremities normal. Motor strength upper and lower extremities normal. There is no gross sensory deficit. Gait is normal. Assessment:: Degenerative disc disease lumbar spine multilevels. Lumbar radiculopathy. Bilateral sacroiliitis. Plan:: We will plan for bilateral sacroiliac joint injections. I discussed in detail with the patient regarding the injections risk versus benefits. I answered her questions. She wishes to proceed. [facility] Disclaimer: The information contained in this section may have been updated after the patient was seen, as this information can be updated by other users. Medical History Anemia Arthritis Asthma Cervical (neck) region somatic dysfunction Chronic pain Degenerated intervertebral disc Depression Fibromyalgia History of renal dialysis History of TB (tuberculosis) Iron deficiency anemia Peptic ulcer disease Type 2 diabetes mellitus Surgical History History of cervical spinal surgery History of colonoscopy History of esophagogastroduodenoscopy (EGD) Family History Other Cancer Coronary artery disease Diabetes Hypertension Social History Smoking Status: Never smoker second hand exposure: No alcohol intake: never substance use type: denies use current occupational status: retired Travel in the last 8 weeks: None household members: none housing: house current occupational exposures/hazards: No caffeine: Yes
== END ==
PROVIDERS: PCP Family Medicine; Visit Provider Nurse Anesthetist, Certified Registered
DX: M51.16 Intervertebral disc disorders with radiculopathy, lumbar region (principal); M46.1 Sacroiliitis, not elsewhere classified
CPT/HCPCS: 99212; G0463

== ENCOUNTER 2022-08-26 08:11 | Day surgery (SDC) | payer MEDICARE, SELFPAY ==
[2022-08-26 08:29] VITALS: BP 128/72; PULSE 78; RESP 18; TEMP 36.6; O2SAT 95
[2022-08-26 08:46] VITALS: BP 125/64; PULSE 78; RESP 18; O2SAT 97
[2022-08-26 08:47] VITALS: BP 125/64; PULSE 78; RESP 18; O2SAT 97
--- NOTE | 2022-08-26 08:53 | EXP.PAIN.PRO ---
Procedure Date: 08/26/22 Time: 08:40 Anesthesiologist:: Jose Gale CRNA Complications:: None Pre-procedure Diagnosis:: Bilateral sacroiliitis Post-procedure Diagnosis:: Same Indications for Procedure:: Very pleasant 67-year-old female comes our clinic today for bilateral sacroiliac joint injection. Patient has had this in the past with significant improvement. She has had multiple low back surgeries. She complains of low lumbar pain. She has extreme point tenderness over the bilateral sacroiliac joints. Procedure Details:: Procedure: Bilateral sacroiliac joint injections under fluoroscopy Informed consent was obtained and the risks and benefits of the procedure were explained to the patient.~ The patient was taken to the procedure room and noninvasive monitors were placed including a noninvasive blood pressure cuff and pulse oximeter.~ The patient was placed prone on the procedure table. Both hips were cleansed using Betadine as a cleansing solution. C-arm fluoroscopy was used to view the right sacroiliac joint.~ The skin and subcutaneous tissues were anesthetized using lidocaine 1.5% and a 25-gauge needle.~ After this, a 22-gauge spinal needle was inserted under fluoroscopic guidance into the inferior aspect of the right sacroiliac joint.~ Omnipaque dye was injected and good spread was seen throughout the joint.~ After this, approximately 5 mL of bupivacaine, 0.25% and Depo-Medrol, 40 mg was incrementally injected into the right sacroiliac joint. We then moved to the left sacroiliac joint.~ The skin and subcutaneous tissues were anesthetized using lidocaine 1.5% and a 25-gauge needle.~ After this, a 22-gauge spinal needle was inserted under fluoroscopic guidance into the inferior aspect of the left sacroiliac joint.~ Omnipaque dye was injected and good spread was seen throughout the joint. After this, approximately 5 mL of bupivacaine, 0.25% and Depo-Medrol, 40 mg was incrementally injected into the left sacroiliac joint.~ The patient tolerated the procedure well with no complications. The patient was observed in the Pain Clinic and then was discharged home neurologically intact. Plan and Disposition:: Patient was discharged without incident.
[2022-08-26 08:55] VITALS: BP 124/74; PULSE 70; RESP 18; O2SAT 95
== END 2022-08-26 08:55 | disposition home or self-care (01) ==
PROVIDERS: PCP Family Medicine; Visit Provider Nurse Anesthetist, Certified Registered
DX: M46.1 Sacroiliitis, not elsewhere classified (principal)
CPT/HCPCS: 27096; G0260; J1040

== ENCOUNTER → 2022-09-10 11:29 | Outpatient (POV) | payer MEDICARE, SELFPAY ==
[2022-09-10 12:07] VITALS: BP 113/62; PULSE 72; RESP 19; O2SAT 96; BMI 29.9
--- NOTE | 2022-09-10 12:07 | EXP.PAIN.SOA ---
[facility] Pain Management SOAP Note Subjective:: Patient is a pleasant 67-year-old female who presents today for follow-up of bilateral SI injections on 08/26/2022. We are currently treating the patient for degenerative disc disease of lumbar spine multilevels with lumbar radiculopathy symptoms, chronic sacroiliitis. Today she states she had at least 75% improvement following these injections lasting at least 2 weeks. She does rate her pain today a 7 out of 10. She denies any new trauma or injury. She denies any change to the location or type of pain she experiences. She does state that her pain continues to be all along her low back bilaterally and this pain is made worse with prolonged sitting, standing or walking. Patient does describe this as a aching, throbbing sensation that is worse with certain activities such as going up the stairs or sitting down into a vehicle. Patient states following these injections she was able to increase her activity with decreased pain symptoms and was able to even go shopping as well as not have to use her cane for ambulation. She does state her pain interferes with her ability to perform activities of daily living such as cooking or cleaning. She is currently managed with intrathecal Dilaudid 10 mg/mL with a daily dose of 1.728 mg/day. Patient denies any side effects from this medication. She is also prescribed compounding cream that she states does give significant relief along with pregabalin 100 mg 4 times a day. Patient denies any side effects from this medication. She is requesting a refill on her pregabalin today. Patient has continued to try [id number] medications such as Tylenol and ibuprofen along with heat and ice with no additional improvement. Patient has had SI injections in the past that did provide significant relief and did provide overall improved functionality. Her Don is [id number]. Its been reviewed and appropriate. Review of Systems: General: No recent weight changes, no fever, no sleep disturbances Respiratory: No cough, no shortness of air, no recurring pulmonary infections Cardiovascular/peripheral vascular: No chest pain, no palpitations, no edema, no shortness of breath Gastrointestinal: No new onset incontinence, normal bowel movements reported Genitourinary: No new onset incontinence Musculoskeletal: Low back pain Psychiatric: [Normal mood/affect] Neurological: [Denies weakness in extremities], [denies balance issues] Objective:: Physical Exam: General: Alert and oriented x3, no acute distress, pleasant and cooperative Lungs: Respirations even and unlabored, symmetrical chest expansion Eyes: PERRL Musculoskeletal: Flexion and extension of lumbar [spine] somewhat guarded secondary to pain, [antalgic gait noted]point tenderness over bilateral SIs and positive bilateral Anderson's, Rubi's, Gaenslen's, compression and distraction exam Neurological: Speech clear, no gross sensory deficit Assessment:: Degenerative disc disease of lumbar spine multilevels with lumbar radiculopathy symptoms, chronic sacroiliitis Plan:: Patient did have significant improvement of more than 75% with her last SI injections however she is back to her baseline during today's visit. Patient did have limited range of motion of her lumbar spine along with point tenderness at her bilateral SI's and positive bilateral Anderson's, Rubi's, Gaenslen's, compression and distraction exam. I have discussed with the patient that she may benefit from repeat SI injections. Risk and benefits were discussed with the patient and she would like to proceed forward with this plan of care. Patient has tried and failed conservative therapy such as oral medications, heat and ice, topicals, at home exercising and stretching for longer than 6 weeks. I will refill her pregabalin 100 mg 4 times a day and provide a 1 month supply of this medication. Patient will be scheduled for bilateral SI injections. Patient has been instructed to contact the
== END | disposition home or self-care (01) ==
PROVIDERS: PCP Family Medicine; Visit Provider Nurse Practitioner Family
DX: M51.16 Intervertebral disc disorders with radiculopathy, lumbar region (principal); M46.1 Sacroiliitis, not elsewhere classified
CPT/HCPCS: 99212; G0463

== ENCOUNTER 2022-09-16 12:56 | Day surgery (SDC) | payer MEDICARE, SELFPAY ==
[2022-09-16 13:22] VITALS: BP 116/51; PULSE 69; RESP 18; TEMP 36.3; O2SAT 90; BMI 30.5
--- NOTE | 2022-09-16 13:29 | P.PCN_ITS ---
Procedure Date: 09/16/22 Time: 13:30 Anesthesiologist:: Jose Gale CRNA Complications:: None Pre-procedure Diagnosis:: Bilateral sacroiliitis. Degenerative disc disease lumbar spine multilevels. Lumbar radiculopathy. Lumbar postlaminectomy syndrome. Cervical radiculopathy. Degenerative disc disease cervical spine multilevels. Cervical postlaminectomy syndrome. Intrathecal pain pump management. Post-procedure Diagnosis:: Same Indications for Procedure:: Very pleasant 67-year-old female who comes our clinic today for bilateral sacroiliac joint injections. She has had these in the past which she reports have helped her for several weeks. We have been managing this patient for quite some time with different types of injections as well as intrathecal pain pump management with Dilaudid. Patient's main complaint is leg pain bilaterally as well as leg weakness. Intense lumbar back pain when standing for any length of time. She has extreme point tenderness over the bilateral sacroiliac joints. Procedure Details:: Procedure: Bilateral sacroiliac joint injections under fluoroscopy Informed consent was obtained and the risks and benefits of the procedure were explained to the patient.~ The patient was taken to the procedure room and noninvasive monitors were placed including a noninvasive blood pressure cuff and pulse oximeter.~ The patient was placed prone on the procedure table. Both hips were cleansed using Betadine as a cleansing solution. C-arm fluoroscopy was used to view the right sacroiliac joint.~ The skin and subcutaneous tissues were anesthetized using lidocaine 1.5% and a 25-gauge needle.~ After this, a 22-gauge spinal needle was inserted under fluoroscopic guidance into the inferior aspect of the right sacroiliac joint.~ Omnipaque dye was injected and good spread was seen throughout the joint.~ After this, approximately 5 mL of bupivacaine, 0.25% and Depo-Medrol, 40 mg was incrementally injected into the right sacroiliac joint. We then moved to the left sacroiliac joint.~ The skin and subcutaneous tissues were anesthetized using lidocaine 1.5% and a 25-gauge needle.~ After this, a 22- gauge spinal needle was inserted under fluoroscopic guidance into the inferior aspect of the left sacroiliac joint.~ Omnipaque dye was injected and good spread was seen throughout the joint. After this, approximately 5 mL of bupivacaine, 0.25% and Depo-Medrol, 40 mg was incrementally injected into the left sacroiliac joint.~ The patient tolerated the procedure well with no complications. The patient was observed in the Pain Clinic and then was discharged home neurologically intact. Plan and Disposition:: Patient was discharged without incident.
[2022-09-16 13:31] VITALS: BP 102/69; PULSE 69; RESP 18; O2SAT 98
== END 2022-09-16 13:31 | disposition home or self-care (01) ==
PROVIDERS: PCP Family Medicine; Visit Provider Nurse Anesthetist, Certified Registered
DX: M46.1 Sacroiliitis, not elsewhere classified (principal); M51.16 Intervertebral disc disorders with radiculopathy, lumbar region; M50.10 Cervical disc disorder with radiculopathy, unspecified cervical region; M96.1 Postlaminectomy syndrome, not elsewhere classified; Z97.8 Presence of other specified devices
CPT/HCPCS: 27096; G0260; J1040

== ENCOUNTER 2022-12-13 14:08 | Emergency (ER) | payer MEDICARE, SELFPAY ==
[2022-12-13 14:28] VITALS: BP 143/78; PULSE 67; RESP 18; TEMP 37; O2SAT 95; BMI 29.2
[2022-12-13 14:33] VITALS: BP 132/76; PULSE 60; RESP 18; TEMP 36.7; O2SAT 90
--- NOTE | 2022-12-13 14:51 | XR_ITS ---
PROCEDURE INFORMATION: Exam: XR Chest Exam date and time: 12/13/2022 2:52 PM Age: 67 years old Clinical indication: Cough; Additional info: Cough, gen weakness TECHNIQUE: Imaging protocol: Radiologic exam of the chest. Views: 1 view. COMPARISON: CR XR CHEST PORTABLE 03/19/2022 9:50 PM FINDINGS: Lungs: Unremarkable. No consolidation. Pleural spaces: Unremarkable. No pleural effusion. No pneumothorax. Heart/Mediastinum: Unremarkable. No cardiomegaly. Bones/joints: Unremarkable. IMPRESSION: No acute findings.
[2022-12-13 15:00] LABS: Basophils % 0.2 % (0.1-2.0); Eosinophils % 0.5 % (0.1-12.0); Hematocrit 44.6 % (37.0-47.0); Hemoglobin 14.3 g/dL (12.2-16.2); Lymphocytes % 21.6 % (10-50); Mean Corpuscular Volume 99.9 fl (81-99); Monocytes # 0.2 K/mm3 (0.1-1.0); Monocytes % 4.7 % (1.7-9.3); Neutrophils # 3.5 K/mm3 (1.8-7.8); Neutrophils % 73.1 % (37.0-80.0); Platelet Count 169 K/mm3 (142-424); Red Blood Count 4.46 M/mm3 (4.20-5.40); Red Cell Distribution Width 12.9 % (11.5-17.5); White Blood Count 4.8 K/mm3 (4.8-10.8)
[2022-12-13 15:04] VITALS: BP 132/76; PULSE 66; RESP 20; O2SAT 94
[2022-12-13 15:04] LABS: Alanine Aminotransferase 14 U/L (12-78); Albumin Level 4.5 g/dl (3.5-5.0); Albumin/Globulin Ratio 1.5 (1.1-1.8); Alkaline Phosphatase 79 U/L (38-126); Anion Gap 10.1 mEq/L (5-15); Aspartate Amino Transferase 28 U/L (14-36); Bilirubin,Total 0.5 mg/dl (0.2-1.3); Blood Urea Nitrogen 11 mg/dl (7-17); Calcium 9.5 mg/dl (8.4-10.2); Carbon Dioxide 32 mmol/L (22.0-30.0); Chloride 102 mmol/L (98-107); Creatinine Clearance Estimated 67 mL/min (50-200); Estimated Glomerular Filt Rate 84 ml/min (>60); GFR (African American) 101 ML/MIN (>60); Globulin 3.1 g/dL (1.3-3.2); Glucose 105 mg/dl (74-100); Magnesium 1.8 mg/dl (1.6-2.3); Potassium 4.1 mmoL/L (3.5-5.1); Sodium 140 mmol/L (136-145); Total Protein,Serum 7.6 g/dl (6.3-8.2)
--- NOTE | 2022-12-13 15:04 | HMH.EDGENADL ---
Discharge Plan Disposition Patient Disposition: Home, Self-Care Condition: Good Prescriptions Prescriptions: New nitrofurantoin macrocrystal 100 mg capsule 100 mg PO BID 7 Days Qty: 14 0RF Rx Instructions: must administer with a meal/food ondansetron 4 mg tablet,disintegrating 4 mg PO Q8H PRN (Reason: nausea and vomiting) 4 Days Qty: 12 0RF nitrofurantoin macrocrystal 100 mg capsule 100 mg PO BID 7 Days Qty: 14 0RF Rx Instructions: must administer with a meal/food ondansetron 4 mg tablet,disintegrating 4 mg PO Q8H PRN (Reason: nausea and vomiting) 4 Days Qty: 12 0RF No Action duloxetine 60 MG capsule,delayed release(DR/EC) 120 mg PO DAILY vit E-vit E [id number] 1 EACH capsule 2 each PO DIRECTED Rx Instructions: 3x weekly hydromorphone (PF)-0.9 % NaCl 1 MG/ML syringe 0.5 mg IT CONT Rx Instructions: MEDICATION DELIVERED VIA INTRATHECAL PAIN PUMP. TOTAL VOLUME OF PUMP IS 20ML diclofenac sodium 112 GM solution in metered pump w/johann 2 pump TP BID Rx Instructions: APPLY 2 PUMPS (40 MG) TO THE AFFECTED AREA TWO TIMES A DAY pramipexole 1.5 mg tablet 1.5 mg PO HS pregabalin 100 mg capsule 100 mg PO QID Qty: 120 0RF pregabalin [Lyrica] 100 mg capsule 100 mg PO QID Qty: 120 0RF pregabalin [Lyrica] 100 mg capsule 100 mg PO QID Qty: 120 2RF ropinirole 2 mg tablet 2 mg PO HSP PRN (Reason: RESTLESS LEGS) ascorbic acid (vitamin C) [Vitamin C] 500 mg tablet 500 mg PO QID ergocalciferol (vitamin D2) 1,250 mcg (50,000 unit) capsule 50,000 unit PO WEEKLY zinc sulfate 50 mg zinc (220 mg) capsule 220 mg PO DAILY Referrals Follow up/Referrals: George Jacob MD [Primary Care Provider] - See instructions Activity Restrictions/Add. Instructions Additional Instructions/Restrictions: You were evaluated in the emergency department today. 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 Orally hydrate at home is much as possible. Return to the emergency department for any new or worsening symptoms. Clinical Impressions Clinical Impression: UTI (urinary tract infection), Myalgia Instructions Patient Instructions: DI for Urinary Tract Infection (UTI), DI for Diarrhea and Traveler's Diarrhea -- Adult, DI for Nausea -- Adult Discharge ED Provider: Mari Blas General Adult HPI General Chief complaint: Nausea/Vomiting/Diarrhea Stated complaint: hurts all over, diarrhea Time Seen by Provider: 12/13/22 14:48 Mode of Arrival: Wheelchair Source of Information: Patient and Relative Limitations: No Limitations Description of Symptoms (Recalled from ER Triage Doc. by RN): pt has several complaints but the main one of concern is diarrhea and overall not feeling well, denies fever, chest pain or soa. alox4 History of Present Illness HPI narrative: This patient is a 67-year-old female with a history of fibromyalgia presenting to the emergency department for evaluation with concern for generalized weakness, fatigue, and body aches. She notes her symptoms started yesterday. She also notes that she has had dry cough and loose, watery diarrhea. She states that anything that she eats passes right through her. She denies any fevers, chills, headache, vision changes unilateral weakness, numbness, tingling, chest pain, shortness of breath, abdominal pain, nausea, vomiting, dysuria, rashes, or swelling. Nothing seems to make her symptoms better or worse. Related Data Home Medications Medication Instructions Recorded Confirmed duloxetine 60 mg capsule,delayed 120 mg PO DAILY Depression 09/09/17 09/30/22 release vit E 12 mg-vit E mix 50 2 each PO DIRECTED Supplement 03/04/21 09/30/22 mg-squalene 6.6 mg-phytosterol 3.3 mg capsule diclofenac sodium 20 2 pump topical BID Pain 12/26/21 09/30/22 mg/gram/actuation (2 %) topical soln metered-dose pu
--- NOTE | 2022-12-13 15:14 | ECG_ITS ---
APPROVED REPORT Exam: Resting ECG HR:62 bpm ECG Measurements Heart Rate 62 AXES VT 195 P 60 QRSd 77 QRS -16 QT 392 T 52 QTc 398 Conclusion SINUS RHYTHM LOW QRS VOLTAGE IN PRECORDIAL LEADS [QRS DEFLECTION < 1.0 mV IN CHEST LEADS] ANTERIOR MYOCARDIAL INFARCTION , PROBABLY OLD [40+ ms Q WAVE AND/OR ST/T ABNORMALITY IN V3/V4] INFERIOR MYOCARDIAL INFARCTION , PROBABLY OLD [40+ ms Q WAVE AND/OR ST/T ABNORMALITY IN II/aVF] ABNORMAL ECG UNCONFIRMED REPORT Electronically signed by : Nahum Ann MD 12/15/2022 19:56:17
[2022-12-13 15:26] LABS: Coronavirus 19, PCR Not Detected (NotDetected); Influenza A, PCR Not Detected (NotDetected); Influenza B, PCR Not Detected (NotDetected)
[2022-12-13 16:32] LABS: Appearance,Urine CLEAR (Clear); Bilirubin,Urine Negative (Negative); Blood, Urine Negative (Negative); Color,Urine YELLOW (Yellow); Glucose,Urine (UA) Negative (Negative); Ketones,Urine 1+ (Negative); Leukocyte Esterase,Urine 2+ (Negative); Nitrate,Urine Negative (Negative); Protein,Urine Negative (Negative); Specific Gravity, Urine 1.015 (1.005-1.030); Urobilinogen,Urine 0.2 EU/dl (0.2)
[2022-12-13 16:35] LABS: Microscopic, Urine URINE MICROSCOPIC (MICROSCOPIC)
[2022-12-13 16:54] LABS: Bacteria,Urine Trace /lpf; Squamous Epithelial Cell,Urine Occasional #/hpf (0-5)
[2022-12-13 18:23] VITALS: BP 160/80; PULSE 58; RESP 18; TEMP 36.7; O2SAT 94
== END 2022-12-13 18:27 | disposition home or self-care (01) ==
PROVIDERS: Emergency Provider Emergency Medicine; PCP Family Medicine
DX: N39.0 Urinary tract infection, site not specified (principal); R19.7 Diarrhea, unspecified; R53.1 Weakness; E11.9 Type 2 diabetes mellitus without complications; J45.909 Unspecified asthma, uncomplicated; F32.A Depression, unspecified
CPT/HCPCS: 71045; 80053; 81001; 83735; 85025; 87086; 87088; 87186; 87636; 93005; 96361; 96374; 99285; J2405

== ENCOUNTER → 2023-01-06 08:06 | Outpatient (CLI) | payer MEDICARE, SELFPAY ==
--- NOTE | 2023-01-06 08:10 | MM_ITS ---
PROCEDURE INFORMATION: Exam: MG Bilateral Screening 3D Mammography Exam date and time: 01/06/2023 8:10 AM Age: 67 years old Clinical indication: Screening examination; Family history of breast cancer in sister; Sister's age: 64 years. TECHNIQUE: Imaging protocol: Bilateral Screening tomosynthesis and 2D mammography including computer-aided detection (CAD) when performed. COMPARISON: 1. MG MM DIG SCREENING MAMM BI W/CAD 07/24/2020 2:31 PM 2. MG SCREENING MAMMOGRAM 12/27/2010 8:57 AM FINDINGS: MAMMOGRAPHY: Breast composition: There are scattered areas of fibroglandular density. Technical recall for both MLO views to include both upper breast and upper pectoral muscles to facilitate comparison to 2010. IMPRESSION: Technical recall as above. A full report will be issued when images are provided. ASSESSMENT: BI-RADS Category 0: Incomplete- Need Additional Imaging Evaluation and/or Prior Mammograms for Comparison
--- NOTE | 2023-01-06 08:11 | XR_ITS ---
FINAL REPORT CLINICAL HISTORY: SCREENING COMPARISON: 07/24/2020 FINDINGS: Results for lumbar spine not reported. Using the left hip, the bone mineral density of the femoral neck is 0.698 g/cm2, corresponding to a T-score of -1.4, consistent with osteopenia. Previously 0.716 g/cm? with T score of -1.2. Using the right hip, the bone mineral density of the femoral neck is 0.683 g/cm2, corresponding to a T-score of -1.5, consistent with osteopenia. Previously 0.731 g/cm? with a T score of -1.1. FRAX not reported because patient is being treated for osteoporosis with prior hip/vertebral fracture. NOTE: T-score: Standard deviation compared with peak bone mass of young adult mean. *Following the recommendations of the International Society of Bone densitometry, classification of hip BMD is based on the lower of two T-scores; total hip or femoral neck. IMPRESSION: Diminished bone mineral density consistent with osteopenia. Reviewed, Interpreted and Dictated by Derrick Greenberg MD Transcribed by Kamille Muñiz Authenticated and [facility]
== END ==
PROVIDERS: PCP Family Medicine; Visit Provider Family Medicine
DX: Z12.31 Encounter for screening mammogram for malignant neoplasm of breast (principal); M85.89 Other specified disorders of bone density and structure, multiple sites
CPT/HCPCS: 77063; 77067; 77080

== ENCOUNTER → 2023-01-15 14:46 | Outpatient (CLI) | payer MEDICARE, SELFPAY ==
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
== END ==
PROVIDERS: PCP Family Medicine; Visit Provider Family Medicine
DX: R92.8 Other abnormal and inconclusive findings on diagnostic imaging of breast (principal)
CPT/HCPCS: 77062; 77066; G0279

== ENCOUNTER → 2023-02-12 09:10 | Outpatient (POV) | payer MEDICARE, SELFPAY ==
[2023-02-12 10:22] VITALS: BP 129/66; PULSE 73; RESP 18; O2SAT 95; BMI 32.0
--- NOTE | 2023-02-12 11:20 | EXP.PAIN.PRO ---
Procedure Date: 02/12/23 Time: 10:24 Anesthesiologist:: Mari Yeboah APRN Complications:: None Pre-procedure Diagnosis:: Degenerative disc disease of cervical and lumbar spine with cervical and lumbar radiculopathy symptoms, lumbar postlaminectomy syndrome, bilateral sacroiliitis, cervical postlaminectomy syndrome, bilateral knee pain, bilateral hip pain Post-procedure Diagnosis:: Same Indications for Procedure:: Patient is a pleasant 67-year-old female who presents today for follow-up and adjustment to her intrathecal bolus programming. We are currently treating the patient for degenerative disc disease of cervical and lumbar spine with cervical and lumbar radiculopathy symptoms, lumbar postlaminectomy syndrome, cervical postlaminectomy syndrome, bilateral sacroiliitis, bilateral knee pain, bilateral hip pain. Today she rates her pain a 9 out of 10. Patient denies any new trauma or injury. She does state that she is having significant pain in her bilateral knees that is worse with increased ambulation. Patient does state the pain interferes with her ability perform activities of daily living. Patient does state that she has had previous injections in her knees that did provide significant improvement. Patient denies any prior knee replacement. Patient is currently managed with Dilaudid 10 mg/mL with a daily dose of 1.7 to 8 mg/day and bolus dosing every 4 hours of divided doses of 0.6 mg/day. Patient denies any side effects other than having increased fatigue when she uses her bolus device. 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 Patient is interested in proceeding forward with this option. Her Don has been reviewed and is appropriate. Physical Exam: General: Alert and oriented x3, no acute distress, pleasant and cooperative Lungs: Respirations even and unlabored, symmetrical chest expansion Eyes: PERRL Musculoskeletal: Flexion and extension of bilateral knees somewhat guarded secondary to pain, [antalgic gait noted] Neurological: Speech clear, no gross sensory deficit Procedure Details:: Informed consent was obtained and the risk and benefits of the procedure were explained to the patient. Patient was taken to the procedure room where noninvasive monitoring was placed including noninvasive blood pressure cuff and pulse oximeter. Patient's pump was interrogated and was reprogrammed to boluses every 2 hours with each individual dose providing 0.05 mg with a total bolus dosage of 2.256 mg/day. The patient tolerated the procedure well with no complications. Plan and Disposition:: Patient is experiencing significant pain in her bilateral knees with limited range of motion. I have discussed with the patient that she may benefit from bilateral knee intra-articular injections. Risk and benefits were discussed with the patient and she would like to proceed forward with this plan of care. Patient did also tolerate her bolus reprogramming with no complications and was discharged neurologically intact. Patient will return to clinic for bilateral knee intra-articular injections. Patient has been instructed to contact the clinic with any concerns before the next appointment. Dr. Tsang has reviewed this note and agrees with this plan of care. This note was dictated using voice recognition software and make contain errors or omissions. -- It Is medically necessary for this patient to continue to have their intrathecal pump refilled at regular intervals. This patient had an intrathecal pain pump implanted after meeting criteria of chronic intractable pain for greater than 3 months and failing conservative treatments. Patient has committed and been compliant to the treatment plan and all planned follow up care. Since implantation of the intrathecal pain pump, the patient has had decreased pain and been more functional. Oral m
== END ==
PROVIDERS: PCP Family Medicine; Visit Provider Nurse Practitioner Family
DX: M50.10 Cervical disc disorder with radiculopathy, unspecified cervical region (principal); M51.16 Intervertebral disc disorders with radiculopathy, lumbar region; M96.1 Postlaminectomy syndrome, not elsewhere classified; M46.1 Sacroiliitis, not elsewhere classified; M25.561 Pain in right knee; M25.562 Pain in left knee; M25.551 Pain in right hip; M25.552 Pain in left hip; Z97.8 Presence of other specified devices
CPT/HCPCS: 62368; 99213; G0463

== ENCOUNTER 2023-03-03 09:58 | Day surgery (SDC) | payer MEDICARE, SELFPAY ==
[2023-03-03 10:11] VITALS: BP 125/69; PULSE 80; RESP 20; TEMP 36.6; O2SAT 98; BMI 29.2
[2023-03-03 11:07] VITALS: BP 117/65; PULSE 69
--- NOTE | 2023-03-03 11:07 | EXP.PAIN.PRO ---
Procedure Date: 03/03/23 Time: 10:45 Anesthesiologist:: Jose Gale CRNA Complications:: None Pre-procedure Diagnosis:: Osteoarthritis bilateral knees. Degenerative joint disease bilateral knees. Chronic bilateral knee pain Post-procedure Diagnosis:: Same. Indications for Procedure:: Patient is a very pleasant 67-year-old female who comes to the procedure clinic today for bilateral intra-articular knee injections. We currently manage the patient with intrathecal pain pump. She is currently being managed with Dilaudid 2 mg/mL with a daily dose of 2.256 mg/day. Patient doing very well with her current settings. Patient complains of bilateral knee pain with ambulation. Patient has been told by orthopedic surgery her knees should be replaced. However, patient interested in having any surgical intervention at this time. Patient has responded very well to intra-articular cortisone in the past. Patient requesting orthopedic surgery appointment. We will set this up for her today. She is interested in a brace for the right knee. Procedure Details:: Details of the procedure explained to the patient. The patient taken procedure room placed in the sitting position. The area over the bilateral knees was cleansed using chlorhexidine as a cleansing solution. The right knee joint was accessed anteriorly with a 22-gauge inch and half needle. A solution containing 0.25% Marcaine +1% lidocaine and 40 mg of Depo-Medrol was used to inject the right knee with 6 mL total. The same procedure was carried out over the left knee. Patient tolerated procedure without difficulty. No complications. Plan and Disposition:: Patient was discharged without incident.
== END 2023-03-03 11:10 | disposition home or self-care (01) ==
PROVIDERS: PCP Family Medicine; Visit Provider Nurse Anesthetist, Certified Registered
DX: M17.0 Bilateral primary osteoarthritis of knee (principal); M25.561 Pain in right knee; M25.562 Pain in left knee; G89.29 Other chronic pain; Z97.8 Presence of other specified devices
CPT/HCPCS: 20610; J1040

== ENCOUNTER 2023-03-12 11:05 | Outpatient (RCR) | payer MEDICARE, SELFPAY | END 2023-03-12 12:00 | disposition home or self-care (01) | LOC: PT 11:05 | PROVIDERS: Visit Provider Orthopaedic Surgery | DX: M17.11 Unilateral primary osteoarthritis, right knee (principal) | CPT/HCPCS: 97760 ==

== ENCOUNTER → 2023-03-20 10:12 | Outpatient (POV) | payer MEDICARE, SELFPAY ==
[2023-03-20 10:26] VITALS: BP 138/70; PULSE 76; RESP 18; O2SAT 92; BMI 31.8
--- NOTE | 2023-03-20 10:33 | EXP.PAIN.SOA ---
[facility] Pain Management SOAP Note Subjective:: Patient is a pleasant 67-year-old female who presents today for follow-up of bilateral intra-articular knee injections on 03/03/2023. We are currently treating the patient for degenerative disc disease of lumbar spine with lumbar radiculopathy symptoms, degenerative joint disease, bilateral knee pain/osteoarthritis. Today she rates her pain a 7 out of 10. Patient denies any new injury or trauma from her last visit. Patient does state that the injections did provide at least 70% improvement however lasting only about a week or so. Patient does state that she is back to her baseline today and that most of her pain is around her knees and continues at her low back. Patient does state that she was sent to Dr. Yeboah's office and that he is working on trying to get gel injections approved. Patient also states that he did order her a customized brace and that she did go to physical therapy and get this prescription filled however that the brace is tight which help stabilize her knee but she does have difficulty getting it on since she lives alone. Patient is currently managed with Dilaudid 10 mg/mL with a daily dose of 1.7 to 8 mg/day. She denies any side effects from this medication. She does state that it works well however she typically does not use her bolus device as often because it does increase fatigue. Her Don has been reviewed and is appropriate. Review of Systems: General: No recent weight changes, no fever, no sleep disturbances Respiratory: No cough, no shortness of air, no recurring pulmonary infections Cardiovascular/peripheral vascular: No chest pain, no palpitations, no edema, no shortness of breath Gastrointestinal: No new onset incontinence, normal bowel movements reported Genitourinary: No new onset incontinence Musculoskeletal: Low back pain, bilateral knee pain Psychiatric: [Normal mood/affect] Neurological: [Denies weakness in extremities], [denies balance issues] Objective:: Physical Exam: General: Alert and oriented x3, no acute distress, pleasant and cooperative Lungs: Respirations even and unlabored, symmetrical chest expansion Eyes: PERRL Musculoskeletal: Flexion and extension of lumbar [spine] somewhat guarded secondary to pain, [antalgic gait noted] Neurological: Speech clear, no gross sensory deficit Assessment:: Degenerative disc disease of lumbar spine with lumbar radiculopathy symptoms, bilateral knee pain, osteoarthritis bilateral knees, degenerative joint disease, chronic pain syndrome Plan:: Patient continues to experience significant pain in her knees and low back with limited range of motion. I have discussed with the patient that we can do repeat intra-articular injections in her knees however we will wait and see if Dr. Olsen is able to get the gel injections approved. I have also counseled the patient due to her continued low back pain we could possibly do injection therapy at this location as well. Patient will return to clinic in 1 month for reevaluation of symptoms and plan of care. Patient has been instructed to contact the clinic with any concerns before the next appointment. Dr. Tsang has reviewed this note and agrees with this plan of care. This note was dictated using voice recognition software and make contain errors or omissions. -- It Is medically necessary for this patient to continue to have their intrathecal pump refilled at regular intervals. This patient had an intrathecal pain pump implanted after meeting criteria of chronic intractable pain for greater than 3 months and failing conservative treatments. Patient has committed and been compliant to the treatment plan and all planned follow up care. Since implantation of the intrathecal pain pump, the patient has had decreased pain and been more functional. Oral medications have been reduced including intake of oral opioids. Patient continues to do well with intrathecal therapy with decrease in pain symptoms and in
== END ==
PROVIDERS: PCP Family Medicine; Visit Provider Nurse Practitioner Family
DX: M51.16 Intervertebral disc disorders with radiculopathy, lumbar region (principal); M17.0 Bilateral primary osteoarthritis of knee; M25.561 Pain in right knee; M25.562 Pain in left knee; G89.4 Chronic pain syndrome; Z97.8 Presence of other specified devices
CPT/HCPCS: 99212; G0463

== ENCOUNTER → 2023-04-20 13:10 | Outpatient (POV) | payer MEDICARE, SELFPAY ==
[2023-04-20 13:29] VITALS: BP 120/66; PULSE 88; RESP 18; O2SAT 92; BMI 31.6
--- NOTE | 2023-04-20 13:42 | EXP.PAIN.SOA ---
[facility] Pain Management SOAP Note Subjective:: Patient is a pleasant 67-year-old female who presents today for follow-up. We are currently treating the patient for degenerative disc disease of lumbar spine with lumbar radiculopathy symptoms, degenerative joint disease, bilateral knee pain/osteoarthritis. Today she rates her pain an 8 out of 10. Patient does state since her last visit she did go have gel injections into her bilateral knees. Patient does state it took a couple days for it to kick in and it has done better however she still will occasionally have for her knees continue to have aching, throbbing. Patient is currently managed with intrathecal Dilaudid 10 mg/mL with a daily dose of 1.7 to 8 mg/day patient denies any side effects from this medication. At our last visit we did change her boluses to a decreased dose however increase the amount of boluses she was allotted per day. Patient does state that this change has made significant improvement. Patient states that she does not feel like she gets is drowsy when she gives herself her bolus and that she is able to manage better with this. Patient is currently managed with pregabalin 100 mg 4 times a day. Patient states she will have increased leg soreness when she takes this medication however it does take away the pain in her legs. Patient had previously tried gabapentin however could not tolerated due to side effects. Her Don has been reviewed and is appropriate. Review of Systems: General: No recent weight changes, no fever, no sleep disturbances Respiratory: No cough, no shortness of air, no recurring pulmonary infections Cardiovascular/peripheral vascular: No chest pain, no palpitations, no edema, no shortness of breath Gastrointestinal: No new onset incontinence, normal bowel movements reported Genitourinary: No new onset incontinence Musculoskeletal: Bilateral knee pain, leg pain Psychiatric: [Normal mood/affect] Neurological: [Denies weakness in extremities], [denies balance issues] Objective:: Physical Exam: General: Alert and oriented x3, no acute distress, pleasant and cooperative Lungs: Respirations even and unlabored, symmetrical chest expansion Eyes: PERRL Musculoskeletal: Flexion and extension of lumbar [spine] somewhat guarded secondary to pain, [antalgic gait noted] Neurological: Speech clear, no gross sensory deficit Assessment:: Degenerative disc disease of lumbar spine with lumbar radiculopathy symptoms, degenerative joint disease, bilateral knee pain/osteoarthritis Plan:: Patient continues to do well with her current intrathecal medication and boluses. Patient is an [facility] client and has her next intrathecal refill on May 01. I have counseled the patient that she can contact our office for her next follow-up appointment. Patient does have refills on her Lyrica up until May 2023. Patient has been instructed to contact the clinic with any concerns before the next appointment. Dr. Tsang has reviewed this note and agrees with this plan of care. This note was dictated using voice recognition software and make contain errors or omissions. -- It Is medically necessary for this patient to continue to have their intrathecal pump refilled at regular intervals. This patient had an intrathecal pain pump implanted after meeting criteria of chronic intractable pain for greater than 3 months and failing conservative treatments. Patient has committed and been compliant to the treatment plan and all planned follow up care. Since implantation of the intrathecal pain pump, the patient has had decreased pain and been more functional. Oral medications have been reduced including intake of oral opioids. Patient continues to do well with intrathecal therapy with decrease in pain symptoms and increase in functional status. Stopping intrathecal medications can lead to life threatening withdrawal, seizures, cardiac arrest, severe pain, and possible . Pumps that are not refilled at regular i
== END | disposition home or self-care (01) ==
PROVIDERS: PCP Family Medicine; Visit Provider Nurse Practitioner Family
DX: M51.16 Intervertebral disc disorders with radiculopathy, lumbar region (principal); M17.0 Bilateral primary osteoarthritis of knee; M25.561 Pain in right knee; M25.562 Pain in left knee; M19.90 Unspecified osteoarthritis, unspecified site
CPT/HCPCS: 99212; G0463

== ENCOUNTER 2023-07-30 16:47 | Outpatient (CLI) | payer MEDICARE, SELFPAY ==
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
== END 2023-07-30 23:59 ==
LOC: RAD 16:48
PROVIDERS: PCP Physician Assistant; Visit Provider Physician Assistant
DX: M54.2 Cervicalgia (principal); M54.41 Lumbago with sciatica, right side; M54.6 Pain in thoracic spine
CPT/HCPCS: 72084

== ENCOUNTER 2023-10-07 15:16 | Outpatient (POV) | payer MEDICARE, SELFPAY ==
--- NOTE | 2023-10-07 15:30 | EXP.PAIN.PRO ---
Procedure Date: 10/07/23 Time: 15:30 Anesthesiologist:: Mari Yeboah APRN Complications:: None Pre-procedure Diagnosis:: Degenerative disc disease of lumbar spine with lumbar radiculopathy symptoms, bilateral knee osteoarthritis Post-procedure Diagnosis:: same Indications for Procedure:: Patient is a pleasant 67-year-old female who presents today for follow-up. We are currently treating the patient for degenerative disc disease of lumbar spine with lumbar radiculopathy symptoms, degenerative joint disease, bilateral knee pain/osteoarthritis. Today she rates her pain an 8 out of 10. She has recently had a fall however she states she really did not fall she just bounced back and forth between items causing significant bruising. Patient states that she was carrying a bowl of soup and lost her balance. Patient does states she also continues to have chronic pain throughout her knees and shoulder as well as all over. Patient states that she feels like she needs some type of improvement because all she does is just sit around the house due to the pain. Patient is currently managed with intrathecal Dilaudid 10 mg/mL with a daily dose of 1.728 mg/day patient denies any side effects from this medication. she is currently managed with pregabalin 100 mg 4 times a day. She states that she feels like this medication still is causing increased leg soreness and is asking if we can possibly change this medication to something else that would help the overall pain. Her Don has been reviewed and is appropriate. Physical Exam: General: Alert and oriented x3, no acute distress, pleasant and cooperative Lungs: Respirations even and unlabored, symmetrical chest expansion Eyes: PERRL Musculoskeletal: Flexion and extension of lumbar [spine] somewhat guarded secondary to pain, [antalgic gait noted] Neurological: Speech clear, no gross sensory deficit Procedure Details:: Informed consent was obtained and the risk and benefits of the procedure were explained to the patient. Patient was taken to the procedure room where noninvasive monitoring was placed including noninvasive blood pressure cuff and pulse oximeter. Patient's pump was interrogated and was reprogrammed to Dilaudid 1.9 mg/day. The patient tolerated the procedure well with no complications. Plan and Disposition:: And was discharged neurologically intact. Patient tolerated her intrathecal increase with no complications. I have discussed with the patient that we can possibly try amitriptyline instead of the pregabalin. Patient was tried on gabapentin in the past however did not tolerate this. Patient states she is agreeable to this plan of care. I have discussed with patient that we will have her taper down off her current pregabalin dosage and I will see her back in 3 weeks we will plan on starting her off on a low-dose of amitriptyline. I have discussed with the patient that I will also order her a customized knee brace to help add support and stabilization and also protect the knee while the patient ambulates. Patient will return to clinic in 3 weeks for reevaluation of symptoms and plan of care. Patient has been instructed to contact the clinic with any concerns before the next appointment. Dr. Tsang has reviewed this note and agrees with this plan of care. This note was dictated using voice recognition software and make contain errors or omissions. -- It Is medically necessary for this patient to continue to have their intrathecal pump refilled at regular intervals. This patient had an intrathecal pain pump implanted after meeting criteria of chronic intractable pain for greater than 3 months and failing conservative treatments. Patient has committed and been compliant to the treatment plan and all planned follow up care. Since implantation of the intrathecal pain pump, the patient has had decreased pain and been more functional. Oral medications have been reduced including intake of oral opioids. Patient continues to do well with intrathecal therapy with decrease in pain symptoms and increase in functional status. Stopping intrathecal medications can lead to life threatening withdrawal, seizures, cardiac arrest, severe pain, and possible . Pumps that are not refilled at regular intervals can be damages and cause and need for replacement. We continually titrate dose and concentration to optimize pain relief and function. We are limited in concentration for certain drugs to safely deliver medications through the pump and stay within the recommendations from the Polyanalgesic Consensus Committee Guidelines. Depending on dose and concentration these pumps may need to be refilled sooner than 3 months as we titrate.
[2023-10-07 15:40] VITALS: BP 113/68; PULSE 71; RESP 18; O2SAT 93; BMI 32.1
== END 2023-10-07 23:59 | disposition home or self-care (01) ==
PROVIDERS: PCP Family Medicine; Visit Provider Nurse Practitioner Family
DX: M51.16 Intervertebral disc disorders with radiculopathy, lumbar region (principal); M17.0 Bilateral primary osteoarthritis of knee; Z97.8 Presence of other specified devices; Z45.1 Encounter for adjustment and management of infusion pump
CPT/HCPCS: 62368; 99213; G0463

== ENCOUNTER 2023-10-28 14:18 | Outpatient (POV) | payer MEDICARE, SELFPAY ==
[2023-10-28 14:37] VITALS: BP 108/55; PULSE 79; RESP 16; O2SAT 79; BMI 32.1
--- NOTE | 2023-10-28 17:19 | A.OFFVIS_ITS ---
[facility] Pain Management SOAP Note Subjective:: Patient is a pleasant 68-year-old female who presents today for follow-up. Today she rates her pain a 10 out of 10. She denies any new trauma or injury. She states a lot of pain is within her bilateral knees. She states it is an aching, throbbing sensation that does interfere with her ability perform activities of daily living such as cooking and cleaning. Patient states she has trouble getting up and down due to the pain of her knees. Patient has had intra-articular injections in the past that did provide good relief and she is asking if she could get repeat injections today. Patient does state from our last visit that she has been tapering down on her pregabalin. She states she is now just taking pregabalin 100 mg twice a day. Patient does state that she feels like she is not having as much leg symptoms with the overall decrease. She does state that her family does not want her to try amitriptyline. Patient states that she feels like if she had something in addition to the lower dose of pregabalin that she would have better overall coverage with pain. Patient is cu rrently managed with Dilaudid 10 mg/mL with a daily dose of 1.9 mg/day. She denies any side effects from this medication. Her Don has been reviewed and is appropriate. Review of Systems: General: No recent weight changes, no fever, no sleep disturbances Respiratory: No cough, no shortness of air, no recurring pulmonary infections Cardiovascular/peripheral vascular: No chest pain, no palpitations, no edema, no shortness of breath Gastrointestinal: No new onset incontinence, normal bowel movements reported Genitourinary: No new onset incontinence Musculoskeletal: Low back pain, bilateral knee pain Psychiatric: [Normal mood/affect] Neurological: [Denies weakness in extremities], [denies balance issues] Objective:: Physical Exam: General: Alert and oriented x3, no acute distress, pleasant and cooperative Lungs: Respirations even and unlabored, symmetrical chest expansion Eyes: PERRL Musculoskeletal: Flexion and extension of bilateral knees and lumbar [spine] somewhat guarded secondary to pain, [antalgic gait noted] Neurological: Speech clear, no gross sensory deficit Assessment:: Degenerative disc disease of lumbar spine with lumbar radiculopathy symptoms, bilateral knee osteoarthritis Plan:: Patient is experiencing significant pain into her bilateral knees with limited range of motion. Patient has had intra-articular injections in the past that did provide significant relief. I have reviewed with the patient that she may benefit from repeat intra-articular knee injections. Patient did previously have these injections back in February 2023 that did provide at least 50% improvement however she stated they were only temporary. Patient does state that she would like to proceed forward with this plan of care. We did review the risk and benefits. I have also discussed with the patient that we will plan on keeping her on pregabalin 100 mg twice a day and that we will send in a tramadol prescription of 50 mg twice a day. Patient is agreeable to this plan of care and keeping her pump where it is currently at. I will send in 3-month prescriptions for both the pregabalin and tramadol. Patient will be scheduled for bilateral knee intra-articular injections. We will see the patient back in the clinic at the next intrathecal refill. Patient has been instructed to contact the clinic with any concerns before the next appointment. Dr. Tsang has reviewed this note and agrees with this plan of care. This note was dictated using voice recognition software and make contain errors or omissions. -- It Is medically necessary for this patient to continue to have their intrathecal pump refilled at regular intervals. This patient had an intrathecal pain pump implanted after meeting criteria of chronic intractable pain for greater than 3 months and failing conservative treatments. Patient has committed and been compliant to the treatment plan and all planned follow up care. Since implantation of the intrathecal pain pump, the patient has had decreased pain and been more functional. Oral medications have been reduced including intake of oral opioids. Patient continues to do well with intrathecal therapy with decrease in pain symptoms and increase in functional status. Stopping intrathecal medications can lead to life threatening withdrawal, seizures, cardiac arrest, severe pain, and possible . Pumps that are not refilled at regular intervals can be damages and cause and need for replacement. We c ontinually titrate dose and concentration to optimize pain relief and function. We are limited in concentration for certain drugs to safely deliver medications through the pump and stay within the recommendations from the Polyanalgesic Consensus Committee Guidelines. Depending on dose and concentration these pumps may need to be refilled sooner than 3 months as we titrate. [facility] Disclaimer: The information contained in this section may have been updated after the patient was seen, as this information can be updated by other users. Medical History Anemia Arthritis Asthma Cervical (neck) region somatic dysfunction Chronic pain Degenerated intervertebral disc Depression Fibromyalgia History of renal dialysis History of TB (tuberculosis) Iron deficiency anemia Peptic ulcer disease Type 2 diabetes mellitus Surgical History History of cervical spinal surgery History of colonoscopy History of esophagogastroduodenoscopy (EGD) Family History Other Cancer Coronary artery disease Diabetes Hypertension Social History Smoking Status: Never smoker second hand exposure: No alcohol intake: never substance use type: denies use current occupational status: other Travel in the last 8 weeks: None household members: none housing: house current occupational exposures/hazards: No caffeine: Yes
== END 2023-10-28 23:59 | disposition home or self-care (01) ==
PROVIDERS: PCP Family Medicine; Visit Provider Nurse Practitioner Family
DX: M51.16 Intervertebral disc disorders with radiculopathy, lumbar region (principal); M17.0 Bilateral primary osteoarthritis of knee; Z97.8 Presence of other specified devices
CPT/HCPCS: 99212; G0463

== ENCOUNTER 2023-11-17 13:13 | Day surgery (SDC) | payer MEDICARE, SELFPAY ==
[2023-11-17 13:41] VITALS: BP 111/75; PULSE 82; RESP 18; TEMP 36.4; O2SAT 98; BMI 30.2
[2023-11-17] MEDS: LIDOCAINE 1% 5ML PF VIAL 5 ML (13:45)
[2023-11-17] MEDS: BUPIVACAINE 0.25% 10ML INJ 25 MG IJ (13:45)
[2023-11-17] MEDS: methylPREDNISolone ACETATE 80MG/ML VIAL 80 MG (13:45)
[2023-11-17 13:53] VITALS: BP 116/68; PULSE 72; RESP 18; O2SAT 95
--- NOTE | 2023-11-17 13:56 | EXP.PAIN.PRO ---
Procedure Date: 11/17/23 Time: 13:45 Anesthesiologist:: Jose Gale CRNA Complications:: None Pre-procedure Diagnosis:: DJD bilateral knees. Chronic bilateral knee pain. Post-procedure Diagnosis:: Same. Indications for Procedure:: Patient is a pleasant 68-year-old female comes our clinic today for bilateral intra-articular knee injections of cortisone. Patient rates her pain 7/10. Patient is ambulatory however she presents in wheelchair today. She reports pain intensifies with ambulation. Procedure Details:: Details of the procedure explained to the patient. The patient taken procedure and placed in sitting position. The area over the bilateral knees was cleansed using chlorhexidine's cleansing solution. The right knee was accessed with ease using a 22-gauge inch and half needle. 5 cc of solution containing 0.25% Marcaine +1% lidocaine and 40 mg of Depo-Medrol was injected. The same procedure was carried out over the left knee. Patient tolerated procedure without difficulty. No complications. Plan and Disposition:: Patient was discharged without incident.
== END 2023-11-17 13:53 | disposition home or self-care (01) ==
LOC: SC.PAINP 13:15
PROVIDERS: PCP Family Medicine; Visit Provider Nurse Anesthetist, Certified Registered
DX: M17.0 Bilateral primary osteoarthritis of knee (principal); M25.561 Pain in right knee; M25.562 Pain in left knee
CPT/HCPCS: 20610; J1010

== ENCOUNTER 2023-12-09 11:41 | Outpatient (POV) | payer MEDICARE, SELFPAY ==
--- NOTE | 2023-12-09 11:47 | EXP.PAIN.SOA ---
[facility] Disclaimer: The information contained in this section may have been updated after the patient was seen, as this information can be updated by other users. Medical History Anemia Arthritis Asthma Cervical (neck) region somatic dysfunction Chronic pain Degenerated intervertebral disc Depression Fibromyalgia History of renal dialysis History of TB (tuberculosis) Iron deficiency anemia Peptic ulcer disease Type 2 diabetes mellitus Surgical History History of cervical spinal surgery History of colonoscopy History of esophagogastroduodenoscopy (EGD) Family History Other Cancer Coronary artery disease Diabetes Hypertension Social History Smoking Status: Never smoker second hand exposure: No alcohol intake: never substance use type: denies use current occupational status: other Travel in the last 8 weeks: None household members: none housing: house current occupational exposures/hazards: No caffeine: Yes PM Subjective & Objective Subjective Subjective:: Patient is a pleasant 68-year-old female who presents today for follow-up of bilateral knee intra-articular injections on 11/17/2023. Today she rates her pain a 10 out of 10. She denies any new trauma or injury. She does state that she had at least 60% improvement following these injections however she feels like that only lasted about a week. Patient states in the past they do help but they are always very temporary. Patient is currently managed with Dilaudid 10 mg/mL with a daily dose of 1.9 mg/day. Tramadol 50 mg twice a day. She denies any side effects from this medication. She does feel like that the tramadol is just not doing anything. Patient is on pregabalin 100 mg twice a day and is requesting if we can go back to 4 times a day. Her Don has been reviewed and is appropriate. Review of Systems: General: No recent weight changes, no fever, no sleep disturbances Respiratory: No cough, no shortness of air, no recurring pulmonary infections Cardiovascular/peripheral vascular: No chest pain, no palpitations, no edema, no shortness of breath Gastrointestinal: No new onset incontinence, normal bowel movements reported Genitourinary: No new onset incontinence Musculoskeletal: Low back pain, bilateral knee pain, shoulder pain Psychiatric: [Normal mood/affect] Neurological: [Denies weakness in extremities], [denies balance issues] Pain at rest (0-10 scale): 10 Objective Objective:: Physical Exam: General: Alert and oriented x3, no acute distress, pleasant and cooperative Lungs: Respirations even and unlabored, symmetrical chest expansion Eyes: PERRL Musculoskeletal: Flexion and extension of lumbar [spine] somewhat guarded secondary to pain, [antalgic gait noted] Neurological: Speech clear, no gross sensory deficit Has patient had previous pain injection?: Yes Percent improvement in pain since last injection: 50% Conservative treatment options previously tried: Home exercise plan Length of treatment: Longer than 6 weeks Meds Home Medications and Allergies Home Medications ?Medication ?Instructions ?Recorded ?Confirmed ?Type duloxetine 60 mg capsule,delayed 120 mg PO DAILY Depression 09/09/17 11/17/23 History release vit E 12 mg-vit E mix 50 2 each PO DIRECTED Supplement 03/04/21 11/17/23 History mg-squalene 6.6 mg-phytosterol 3.3 mg capsule diclofenac sodium 20 2 pump topical BID Pain 12/26/21 11/17/23 History mg/gram/actuation (2 %) topical soln metered-dose pump hydromorphone (PF) 1 mg/mL in 0.9% 0.5 mg intrathecal CONT CHRONIC 12/26/21 11/17/23 History sodium chloride intravenous syringe PAIN ropinirole 2 mg tablet 2 mg PO HSP PRN RESTLESS LEGS 03/20/22 11/17/23 History ascorbic acid (vitamin C) 500 mg 500 mg PO QID Supplement 04/29/22 11/17/23 History tablet (Vitamin C) ergocalciferol (vitamin D2) 1,250 50,000 unit PO WEEKLY Supplement 04/29/22 11/17/23 History mcg (50,000 unit) capsule zinc sulfate 50 mg zinc (220 mg) 220 mg PO DAILY Supplement 04/29/22 11/17/23 History capsule pramipexole 1.5 mg tablet 1.5 mg PO HS . 08/05/22 11/17/23 History ondansetron 4 mg disintegrating 4 mg PO Q8H PRN nausea and 12/13/22 11/17/23 Rx tablet vomiting 4 days #12 tabs meloxicam 15 mg tablet 15 mg PO DAILY 03/03/23 11/17/23 History pregabalin 100 mg capsule (Lyrica) 100 mg PO QID Pain #120 caps 06/04/23 11/17/23 Rx pregabalin 100 mg capsule 100 mg PO BID #60 caps 10/28/23 11/17/23 Rx tramadol 50 mg tablet 50 mg PO BID #60 tabs 10/28/23 11/17/23 Rx New Prescriptions to Start Prescriptions: Allergies Allergy/AdvReac Type Severity Reaction Status Date / Time Sulfa (Sulfonamide Allergy Unknown NA-NAUSEA/V Verified 07/02/23 13:04 Antibiotics) OMITING [SULFA (SULFONAMIDE ANTIBIOTICS)] Assessment and Plan *Assessment and plan (1) Degenerative disc disease, lumbar: Status: Acute Category: Medical Code(s): M51.36 - Other intervertebral disc degeneration, lumbar region (2) Lumbar radiculopathy: Status: Acute Category: Medical Code(s): M54.16 - Radiculopathy, lumbar region (3) Bilateral knee pain: Status: Acute Qualifiers: Chronicity: chronic Qualified Code(s): M25.561 - Pain in right knee; M25.562 - Pain in left knee; G89.29 - Other chronic pain Category: Medical Code(s): M25.561 - Pain in right knee; M25.562 - Pain in left knee Plan I did discuss at length with the patient regarding the additional injections and that we can do these from time to time however due to however only getting temporary relief that would be her choice if she would want to continue these. Patient was also counseled regarding her pregabalin medication and that in the past where she had stated that she felt like the pregabalin caused more leg issues and possible swelling. Today she states that she does not feel like this is a problem and that it may have been something else. I have discussed with the patient that I am okay with increasing her pregabalin to 100 mg 4 times a day and provide a 1 month supply of this medication and that she will come back in 1 month to see how she is doing with this current dosage. Patient was counseled that we will plan on discontinuing the tramadol since she does not feel like this provides any significant improvement. Patient is agreeable to this. Patient will return to clinic in 1 month for reevaluation of symptoms and plan of care. Patient has been instructed to contact the clinic with any concerns before the next appointment. Dr. Tsang has reviewed this note and agrees with this plan of care. This note was dictated using voice recognition software and make contain errors or omissions. -- It Is medically necessary for this patient to continue to have their intrathecal pump refilled at regular intervals. This patient had an intrathecal pain pump implanted after meeting criteria of chronic intractable pain for greater than 3 months and failing conservative treatments. Patient has committed and been compliant to the treatment plan and all planned follow up care. Since implantation of the intrathecal pain pump, the patient has had decreased pain and been more functional. Oral medications have been reduced including intake of oral opioids. Patient continues to do well with intrathecal therapy with decrease in pain symptoms and increase in functional status. Stopping intrathecal medications can lead to life threatening withdrawal, seizures, cardiac arrest, severe pain, and possible . Pumps that are not refilled at regular intervals can be damages and cause and need for replacement. We continually titrate dose and concentration to optimize pain relief and function. We are limited in concentration for certain drugs to safely deliver medications through the pump and stay within the recommendations from the Polyanalges[employer] Consensus Committee Guidelines. Depending on dose and concentration these pumps may need to be refilled sooner than 3 months as we titrate.
[2023-12-09 13:06] VITALS: BP 106/55; PULSE 83; RESP 18; O2SAT 98; BMI 32.0
== END 2023-12-09 23:59 | disposition home or self-care (01) ==
PROVIDERS: PCP Family Medicine; Visit Provider Nurse Practitioner Family
DX: M51.36 Other intervertebral disc degeneration, lumbar region (principal); M54.16 Radiculopathy, lumbar region; M25.561 Pain in right knee; M25.562 Pain in left knee; G89.29 Other chronic pain
CPT/HCPCS: 99212; G0463

== ENCOUNTER 2024-01-06 13:22 | Outpatient (POV) | payer MEDICARE, SELFPAY ==
--- OUTSIDE RECORDS SUMMARY | 2024-01-06 13:24 | XMS_ITS ---
Author Organization [facility] Address [address] [facility] [address] [facility] [address] [place] [id number] Care Team Providers Care Chief Clinical Officer Name Role Phone George Jacob Primary Care Provider [phone] Anni Candelaria Unavailable [phone] ALLERGIES Allergen (clinical drug ingredient) Drug/Non Drug Allergy documented on EMR Reaction Allergy Type Onset Date Status rosuvastatin Crestor muscle pain Drug Allergy Ac tive Sulfamethoxazole vomiting Drug Allergy Active REASON FOR VISIT 2 week f/u Encounters Encounter Location Date Provider Diagnosis [facility] [address] [facility] [address] [place] [id number] 01/06/2024 Anni Candelaria PLAN OF TREATMENT Next Appt Details Provider Name:Anni waller, 01/06/2024 02:30:00 PM, [address], [address], [place], [phone],
--- OUTSIDE RECORDS SUMMARY | 2024-01-06 13:24 | XMS_ITS ---
Author Organization [facility] Address [address] [facility] [address] [place] [id number] Care Team Providers Care Placement Interviewer Name Role Phone George Jacob Primary Care Provider Bryantmanpreet Anni Unavailable [phone] REASON FOR VISIT B12 injection MEDICATIONS Medication SIG (Take, Route, Frequency, Duration) Notes Start Date End Date Status Welchol 625 MG 3 tablets with meals Orally Twice a day for 30 day(s) Active Breo Ellipta 200-25 MCG/ACT 1 puff(s) in haled once a day for 90 days Active rOPINIRole HCl 2 MG TAKE 1 TABLET EVERY DAY AT BEDTIME for 90 Active Vitamin D3 250 MCG (85244 UT) 1 cap(s) orally 3 times a week for 30 days 10/28/2018 Active Fluticasone Propionate 50 MCG/ACT 1 spray(s) in each nostril once a day 01/17/2021 Active Lyrica 100 MG 1 cap(s) orally Four times a day Active Ferrous Fumarate 325 (106 Fe) MG 1 tab(s) orally once a day 11/12/2017 Active ProAir Digihaler 108 (90 Base) MCG/ACT 2 puff(s) inhaled 4 times a day as needed for 90 days Active Imodium A-D DIRECTED Active Tylenol 325 MG 1 cap(s) orally 3 ti mes a day Active traMADol HCl 50 MG 1 tablet as needed O rally Twice a day Active Cymbalta 60 MG 2 cap(s) orally once a day for 90 days Active Furosemide 20 MG 1 tablet Orally Once a day for 30 day(s) 12/23/2023 Active Omeprazole 40 MG 1 capsule 30 minutes before morning meal Orally Once a day for 90 days 06/12/2023 Active Sodium Bicarbonate 650 MG 2 tabs Orally once daily for 90 days 11/27/2023 Active Meloxicam 15 MG 1 tablet Orally Once a day for 90 days Active Encounters Encounter Location Date Provider Diagnosis [facility] [address] [facility] [address] [facility] [address] [place] [id number] 12/30/2023 Anni Bari B12 deficiency E53.8 ASSESSMENTS Encounter Date Diagnosis Assessment Notes Treatment Notes Treatment Clinical Notes 12/30/2023 B12 deficiency (ICD-10 - E53.8) PLAN OF TREATMENT Next Appt Details Provider Name:Anni waller, 01/06/2024 02:30:00 PM, [address] [facility] [address] [facility], [address], [place], [id number], MEDICATIONS ADMINISTERED Medication Instructions Date of Administration Dosage Notes B-12 12/30/2023 1 mL
--- OUTSIDE RECORDS SUMMARY | 2024-01-06 13:25 | XMS_ITS | Patient Health Record ---
Author Organization [facility] Address [address] [facility] [address] [place] [id number] Care Team Providers Care Budget Manager Name Role Phone George Jacob Primary Care Provider [phone] Anni Candelaria Unavailable [phone] ALLERGIES Allergen (clinical drug ingredient) Drug/Non Drug Allergy documented on EMR Reaction Allergy Type Onset Date Status rosuvastatin Crestor muscle pain Drug Allergy Ac tive Sulfamethoxazole vomiting Drug Allergy Active RESULTS Component Value Reference Range Notes Urinalysis - Inhouse Reviewed date:07/30/2023 11:36:39 PM Interpretation: Performing Lab: Notes/Report: Color/Clarity yellow/clear Leuk 1+ Nitrite neg Urobili 3.2 Protein neg pH 6.5 Blood neg Sp. Gr. 1.015 Ketone neg Bili neg Gluc neg bacteria WBC RBC CBC Venipuncture (in house) Reviewed date:07/30/2023 11:36:39 PM Interpretation: Performing Lab: Notes/Report: wbc 4.5 3.5 - 10 lymph 27.6 15 - 50 mid 7.2 2 - 15 gran 65.2 35 - 80 rbc 3.64 3.5 - 5.5 hgb 12.0 11.5 - 16.5 hct 35.3 35 - 55 mcv 97.0 75 - 100 mch 33.0 25 - 35 mchc 34.0 31 - 38 platlet 136 100 - 400 P-Vitamin B12 Reviewed date:08/03/2023 09:33:12 AM Interpretation:Vit b12 <150 Performing Lab: Notes/Report: Test performed by [facility] [address] [place] [address] , [address], [place] [address] Link Uribe MD, Recruitment Coordinator CLIA: [id number] Vitamin B12 <628 730-1879 pg/mL P-Comprehensive Metabolic Pa deion (CMP) Reviewed date:08/03/2023 09:33:12 AM Interpretation:Na 130, Chlor 92 Performing Lab: Notes/Report: Test performed by [facility] [address] [place] [address] , [address], [place] [address] Link Uribe MD, Recruitment Coordinator CLIA: [id number] Sodium 130 135-145 mEq/L Potassium 4.2 3.5-5.3 mEq/L Chloride 92 97-108 mEq/L CO2 29 22-32 mEq/L Glucose 93 65-99 mg/dL BUN 16 8-23 mg/dL Creatinine 0.84 0.50-1.00 mg/dL Calcium 9.1 8.6-10.4 mg/dL eGFR by Creatinine 76 >59 mL/min/1.73m2 Protein 6.8 6.0-8.3 g/dL Albumin 4.7 3.5-5.3 g/dL Alkaline Phosphatase 61 35-121 IU/L ALT (SGPT) 6 <5-47 IU/L AST (SGOT) 14 <5-40 IU/L Bilirubin, Total 0.2 <0.2-1.2 mg/dL A/G Ratio 2.2 1.1-2.5 mg/dL [facility]th[facility] Panel, [facility] Reviewed date:08/03/2023 09:33:12 AM Interpretation: Performing Lab: Notes/Report: Test performed by [facility] [address] [place] [address] , [address], [place] [address] Link Uribe MD, Recruitment Coordinator CLIA: [id number] Erythrocyte Sedimentation Rate (ESR), Automated 5 <31 mm/hr Rheumatoid Factor <10 <14.1 IU/mL C-Reactive Protein (CRP) 0.06 <0.50 mg/dL Antinuclear Antibodies (BEVERLY) Screen, Reflex BEVERLY 9 Panel Negative Negative Test performe d by Multiplex Bead Immunoassay methodology. Antinuclear Antibodies (BEVERLY) Result Note SEE COMMENT For positive Autoantibodies, please refer to the interpretive chart here: [email or web address] wp-content/[email or web address]. pdf CCP Antibodies <0.5 <0.5-3.0 U/mL P-Culture, Urine Reviewed date:08/03/2023 09:33:12 AM Interpretation: Performing Lab: Notes/Report: Test performed by [facility] [address] , [address], [place] [address] Link Uribe MD, Recruitment Coordinator CLIA: [id number] Specimen Source Urine - Void Culture, Urine See Below Final Report : No Significant Growth P-Magnesium Reviewed date:08/03/2023 09:33:12 AM Interpretation: Performing Lab: Notes/Report: Test performed by [facility] , [address], [place] [address] Link Uribe MD, Recruitment Coordinator CLIA: [id number] Magnesium 1.7 1.6-2.4 mg/dL P-TSH reflex to FT4 Reviewed date:08/03/2023 09:33:12 AM Interpretation: Performing Lab: Notes/Report: Test performed by [facility] , [address], [place] [address] Link Uribe MD, Recruitment Coordinator CLIA: [id number] TSH reflex to FT4 0.68 0.43-5.25 mU/L P-Vitamin D 25-Hydroxy Reviewed date:08/03/2023 09:33:12 AM Interpretation: Performing Lab: Notes/Report: [facility] performed [facility] [address] , [facility] [address], [place] [address] Link Uribe MD, Recruitment Coordinator CLIA: [id number] Vitamin D 25-Hydroxy 47.7 30.0-100.0 ng/mL Interpretation of Vitamin D 25 OH: < 20 ng/mL - Deficiency 20 - 29 ng/mL - Insufficiency 30 - 100 ng/mL - Sufficiency > 100 ng/mL - Super-therapeutic- toxicity may occur above this level. Clinical correlation required. X ray : Spine, lumbosacral Reviewed date:08/10/2023 01:36:15 PM Interpretation:see c-spine Performing Lab: Notes/Report: see c-spine X ray : Spine, thoracic spin e Reviewed date:08/10/2023 01:36:02 PM Interpretation:see c-spine Performing Lab: Notes/Report: see c-spine X ray : Spine, cervical A-P and Lateral Reviewed date:08/03/2023 09:32:11 AM Interpretation:Diffuse degenerative disc changes throughout the lower cervical, throacic and lower lumbar spine as well as lumbar scoliosis. Severe facet arthropathy in. Performing Lab: Notes/Report: Diffuse degenerative disc changes throughout the lower cervical, throacic and lower lumbar spine as well as lumbar scoliosis. Severe facet arthropathy in. Glucose (In-House) Reviewed date:05/15/2023 12:39:12 PM Interpretation:108 Performing Lab: Notes/Report: 108 blood glucose 108 74 - 106 mg/dL CBC Venipuncture (in house) Reviewed date:05/15/2023 12:39:12 PM Interpretation:Normal Performing Lab: Notes/Report: Normal wbc 3.8 3.5 - 10 lymph 21.9 15 - 50 mid 6.2 2 - 15 gran 71.9 35 - 80 rbc 3.43 3.5 - 5.5 hgb 11.4 11.5 - 16.5 hct 33.8 35 - 55 mcv 98.4 75 - 100 mch 33.2 25 - 35 mchc 33.8 31 - 38 platlet 157 100 - 400 Glycohemoglobin A1c (in hous e) Reviewed date:05/15/2023 12:39:12 PM Interpretation:5.1% Performing Lab: Notes/Report: 5.1% glycohemoglobin 5.1% 5 - 6.5 % P-Comprehensive Metabolic Pa deion (CMP) Reviewed date:05/15/2023 12:39:12 PM Interpretation:Normal Performing Lab: Notes/Report: Test performed by [facility] [address] [place] [address] , [address], [place] [address] Link Uribe MD, Recruitment Coordinator CLIA: [id number] Sodium 135 135-145 mEq/L Potassium 5.1 3.5-5.3 mEq/L Chloride 99 97-108 mEq/L CO2 26 22-32 mEq/L Glucose 93 65-99 mg/dL BUN 14 8-23 mg/dL Creatinine 0.86 0.50-1.00 mg/dL Calcium 9.2 8.6-10.4 mg/dL eGFR by Creatinine 74 >59 mL/min/1.73m2 Protein 6.3 6.0-8.3 g/dL Albumin 4.0 3.5-5.3 g/dL Alkaline Phosphatase 78 35-121 IU/L ALT (SGPT) 8 <5-47 IU/L AST (SGOT) 14 <5-40 IU/L Bilirubin, Total 0.2 <0.2-1.2 mg/dL A/G Ratio 1.7 1.1-2.5 mg/dL P-Iron Reviewed date:05/15/2023 12:39:12 PM Interpretation:Normal Performing Lab: Notes/Report: Test performed by [facility] [address] [place] [address] , [place] [address] Link Uribe MD, Recruitment Coordinator CLIA: [id number] Iron 125 37-145 ug/dL P-TSH reflex to FT4 Reviewed date:05/15/2023 12:39:12 PM Interpretation:Normal Performing Lab: Notes/Report: Test performed by [facility] [address] [place] [address] , [place] [address] Link Uribe MD, Recruitment Coordinator CLIA: [id number] TSH reflex to FT4 0.84 0.43-5.25 mU/L P-Vitamin D 25-Hydroxy Reviewed date:05/15/2023 12:39:12 PM Interpretation:Normal Performing Lab: Notes/Report: Test performed by [facility] [address] [place] [address] , [place] [address] Link Uribe MD, Recruitment Coordinator CLIA: [id number] Vitamin D 25-Hydroxy 42.1 30.0-100.0 ng/mL Interpretation of Vitamin D 25 OH: < 20 ng/mL - Deficiency 20 - 29 ng/mL - Insufficiency 30 - 100 ng/mL - Sufficiency > 100 ng/mL - Super-therapeutic- toxicity may occur above this level. Clinical correlation required. CBC Venipuncture (in house) Reviewed date:12/23/2023 11:39:15 PM Interpretation: Performing Lab: Notes/Report: wbc 4.0 3.5 - 10 lymph 21.6% 15 - 50 mid 5.3% 2 - 15 gran 73.1% 35 - 80 rbc 3.39 3.5 - 5.5 hgb 11.2 11.5 - 16.5 hct 34.0 35 - 55 mcv 100.5 75 - 100 mch 33.2 25 - 35 mchc 33.1 31 - 38 platlet 149 100 - 400 Glycohemoglobin A1c (in hous e) Reviewed date:12/25/2023 11:28:03 AM Interpretation:4.8 Performing Lab: Notes/Report: 4.8 glycohemoglobin 4.8% 5 - 6.5 % P-Vitamin B12 Reviewed date:12/25/2023 11:28:03 AM Interpretation:>2000 Performing Lab: Notes/Report: Test performed by [facility] [address] , [address], [place] [address] Link Uribe MD, Recruitment Coordinator CLIA: [id number] Vitamin B12 >2000 232-1245 pg/mL P-Comprehensive Metabolic Pa deion (CMP) Reviewed date:12/25/2023 11:28:03 AM Interpretation:Cr 1.13, gfr 53 Performing Lab: Notes/Report: Test performed by [facility] [address] [place] [address] , [address], [place] [address] Link Uribe MD, Recruitment Coordinator CLIA: [id number] Sodium 140 135-145 mmol/L Potassium 4.1 3.5-5.3 mmol/L Chloride 103 97-108 mmol/L CO2 29 22-32 mmol/L Glucose 77 65-99 mg/dL BUN 20 8-23 mg/dL Creatinine 1.13 0.50-1.00 mg/dL Calcium 9.3 8.6-10.4 mg/dL eGFR by Creatinine 53 >59 mL/min/1.73m2 Protein 6.9 6.0-8.3 g/dL Albumin 4.1 3.5-5.3 g/dL Alkaline Phosphatase 63 35-121 IU/L ALT (SGPT) 6 <5-47 IU/L AST (SGOT) 13 <5-40 IU/L Bilirubin, Total 0.3 <0.2-1.2 mg/dL A/G Ratio 1.5 1.1-2.5 mg/dL P-Ferritin Reviewed date:12/25/2023 11:28:03 AM Interpretation:Normal Performing Lab: Notes/Report: Test performed by [facility] [address] [place] [address] , [address], [place] [address] Link Uribe MD, Recruitment Coordinator CLIA: [id number] Ferritin 169.0 13.0-301.0 ng/mL P-Iron Reviewed date:12/25/2023 11:28:03 AM Interpretation:Normal Performing Lab: Notes/Report: Test performed by [facility] [address], [place] [address] Link Uribe MD, Recruitment Coordinator CLIA: [id number] Iron 68 37-145 ug/dL P-Lipid Panel Reviewed date:12/25/2023 11:28:03 AM Interpretation:Normal Performing Lab: Notes/Report: Test performed by [facility] [address], [place] [address] Link Uribe MD, Recruitment Coordinator CLIA: [id number] Cholesterol 161 <200 mg/dL Triglycerides 82 <150 mg/dL HDL Cholesterol 74 >39 mg/dL Cholesterol / HDL Ratio 2.18 0.00-4.44 Ratio Non-HDL Cholesterol 87 <130 mg/dL LDL Cholesterol (Calculation) 71 <130 mg/dL LDL Cholesterol Levels* Less than 100 mg/dL Optimal 100 to 129 mg/dL Near Optimal/ Above Optimal 130 to 159 mg/dL Borderline High 160 to 189 mg/dL High 190 mg/dL and above Very High * Categories as recommended by the 2004 ATPIII guidelines LDL/HDL Ratio 1.0 <3.3 Ratio LDL Cholesterol Patient History Test Date: 11/10/2022 LDL Results: 70 Units: mg/dL % Change: - Test Date: 12/23/2023 LDL Results: 71 Units: mg/dL % Change: +1% P-TSH reflex to FT4 Reviewed date:12/25/2023 11:28:03 AM Interpretation:Normal Performing Lab: Notes/Report: Test performed by [facility] [address] [place], [place] [address] [address] , [facility] [address], [place] [address] Link Uribe MD, Recruitment Coordinator CLIA: [id number] TSH reflex to FT4 1.25 0.43-5.25 mU/L P-Vitamin D 25-Hydroxy Reviewed date:12/25/2023 11:28:03 AM Interpretation:41.9 Performing Lab: Notes/Report: Test performed by [facility] [address] [place] [address] [address], [place] [address] Link Uribe MD, Recruitment Coordinator CLIA: [id number] Vitamin D 25-Hydroxy 41.9 30.0-100.0 ng/mL Interpretation of Vitamin D 25 OH: < 20 ng/mL - Deficiency 20 - 29 ng/mL - Insufficiency 30 - 100 ng/mL - Sufficiency > 100 ng/mL - Super-therapeutic- toxicity may occur above this level. Clinical correlation required. [facility] Natriuretic Peptide Reviewed date:12/25/2023 11:28:03 AM Interpretation:Normal Performing Lab: Notes/Report: Test performed by [facility] [address] [place], [place] [address] [address], [place] [address] Link Uribe MD, Recruitment Coordinator CLIA: [id number] pro[employer] Natriuretic Peptide 173 <300 pg/mL Please note the updated reference range values which are stratified by age. Positive >900 pg/mL Indeterminate 300-900 pg/mL Negative <300 pg/mL P-Basic Metabolic Panel (BMP ) Reviewed date:06/15/2023 03:35:12 PM Interpretation:Glu 103 Performing Lab: Notes/Report: Test performed by [facility] [address] [place] [address] , [address], [place] [address] Link Uribe MD, Recruitment Coordinator CLIA: [id number] Sodium 135 135-145 mEq/L Potassium 4.7 3.5-5.3 mEq/L Chloride 99 97-108 mEq/L CO2 26 22-32 mEq/L Glucose 103 65-99 mg/dL BUN 17 8-23 mg/dL Creatinine 0.79 0.50-1.00 mg/dL Calcium 9.3 8.6-10.4 mg/dL eGFR by Creatinine 82 >59 mL/min/1.73m2 Mammogram, Bilateral Diagnos tic Reviewed date:01/21/2023 08:21:48 AM Interpretation:No mammographic evidence of malignancy. Annual bilateral mammographic screening is recommended unless otherwise clinically indicated. Performing Lab: Notes/Report: No mammographic evidence of malignancy. Annual bilateral mammographic screening is recommended unless otherwise clinically indicated. REASON FOR REFERRAL Diagnosis 1 Lacunar infarction ( I63.81) [facility] Referring Provider First Name Anni Referring Provider Last Name Bari Referring Provider Speciality Physician Crisis Clinician Referred Provider Neurology, . Referred Provider Specialty Neurology General Notes Anni Candelaria 07/29 11:34:54 PM > Pt's family would like for her to see someone in [place] for memory loss and history of lacunar infarct., Marie Prince 08/04/2023 10:05:50 AM > faxed referral to [facility], they will contact pt Referral Priority Routine Diagnosis 1 Lacunar infarction ( I63.81) Referral Organization [facility] Referring Provider First Name Anni Referring Provider Last Name Bari Referring Provider Speciality Physician Crisis Clinician Referred Provider Neurology, . Referred Provider Specialty Neurology General Notes Anni Candelaria 2023 11:52:22 AM > Dr. Prudencio Thornton at [facility], please send [address] , Lili Jimenes 12/23/2023 1:35:12 PM > have called several times and no answer; is the only number I can find to call online, Lili Jimenes 12/28/2023 11:55:57 AM > faxed referral to Referral Priority Routine Diagnosis 1 Choking, initial enc ounter (T17.308A) Referral Organization [facility] Referring Provider First Name Anni Referring Provider Last Name Bari Referring Provider Speciality Physician Crisis Clinician Referred Provider Speech Therapy, . Referred Provider Specialty Speech Thera kota General Notes Anni Candelaria S 2023 12:02:10 PM > Needs eval at [facility], patient will schedule Referral Priority Routine MEDICATIONS Medication SIG (Take, Route, Frequency, Duration) Notes Start Date End Date Status traMADol HCl 50 MG 1 tablet as needed O rally Twice a day Active Meloxicam 15 MG 1 tablet Orally Once a day for 90 days Active Lyrica 100 MG 1 cap(s) orally Four times a day Active Cymbalta 60 MG 2 cap(s) orally once a day for 90 days Active Welchol 625 MG 3 tablets with meals Orally Twice a day for 30 day(s) Active Breo Ellipta 200-25 MCG/ACT 1 puff(s) in haled once a day for 90 days Active Ferrous Fumarate 325 (106 Fe) MG 1 tab(s) orally once a day 11/12/2017 Active Furosemide 20 MG 1 tablet Orally Once a day for 30 day(s) 12/23/2023 Active ProAir Digihaler 108 (90 Base) MCG/ACT 2 puff(s) inhaled 4 times a day as needed for 90 days Active Imodium A-D DIRECTED Active Omeprazole 40 MG 1 capsule 30 minutes before morning meal Orally Once a day for 90 days 06/12/2023 Active Tylenol 325 MG 1 cap(s) orally 3 ti mes a day Active Sodium Bicarbonate 650 MG 2 tabs Orally once daily for 90 days 11/27/2023 Active rOPINIRole HCl 2 MG TAKE 1 TABLET EVERY DAY AT BEDTIME for 90 Active Vitamin D3 250 MCG (71215 UT) 1 cap(s) orally 3 times a week for 30 days 10/28/2018 Active Fluticasone Propionate 50 MCG/ACT 1 spray(s) in each nostril once a day 01/17/2021 Active IMMUNIZATIONS Vaccine Route Administration Date Status Comme nts COVID 19 Pfizer Unknown 11/01/2020 Administered COVID 19 Pfizer Unknown 11/22/2020 Administered Fluzone High Dose (65yr and older) IM Intramuscular 01/16/2022 Administered Fluzone High Dose (65yr and older) IM Intramuscular 03/20/2023 Administered Fluzone PF Quad (6-35 months) Unknown 02/19/2021 Administered Fluzone Quad (6months&older) IM Intramuscular 02/03/2019 Administered Fluzone Quad (6months&older) IM Intramuscular 01/19/2020 Administered Fluzone Quad-Medicare (6months&older) IM Intramuscular 01/28/2018 Administered PNEUMOVAX 23 VACCINE Unknown 03/03/2017 Administered Prevnar (PCV13) IM Intramuscular 04/29/2018 Administered Prevnar (PCV20) IM Intramuscular 03/20/2023 Administered Shingrix Unknown 02/19/2021 Administered Shingrix Unknown 08/01/2021 Administered SOCIAL HISTORY Sex Assigned At : Social History Observation Description Sex Assigned At Unknown PROBLEMS Problem Type ICD Code Onset Dates Problem Status W/U Status Risk SNOMED Code Notes Problem Vitamin D deficiency (E55.9) Active confirmed 42449054 Problem Abnormal mammogram (R92.8) Active confirmed Abnormal mammogram (630269705) Problem Hypertriglyceridemia (E78.1) Active confirmed 730745574 Problem Osteopenia (M85.80) Active confirmed Os teopenia (262558856) Problem Depression with anxi ety (F41.8) Active confirmed 20072291 Problem Lumbago with sciatic a, right side (M54.41) Active confirmed 445455704 Problem Mixed hyperlipidemia (E78.2) Active confirmed 179275319 Problem Primary insomnia (F51.01) Active confirmed 1648517 Problem Other chronic pain (G89.29) Active confirmed 53407183 Problem Lumbago with sciatic a, left side (M54.42) Active confirmed 719091832 Problem Degenerative disc disease, cervical (M50.30) Active confirmed 76572551 Problem Other chronic pain (G89.29) Active confirmed 37814270 Problem Gastroesophageal ref lux disease, esophagitis presence not specified (K21.9) Active confirmed 011714471 Problem 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) Active confirmed 637511487 Problem Primary osteoarthrit is of both knees (M17.0) Active confirmed 539485414 Problem Iron deficiency anem ia, unspecified iron deficiency anemia type (D50.9) Active confirmed 72727018 Problem Abnormal mammogram o f right breast (R92.8) Active confirmed 498538125 Problem Type 2 diabetes mellitus without complication, without long-term current use of insulin (E11.9) Active confirmed 623018609 Problem Asthma, unspecified asthma severity, unspecified whether complicated, unspecified whether persistent (J45.909) Active confirmed 269493622 Problem Allergic rhinitis, unspecified seasonality, unspecified trigger (J30.9) Active confirmed 77762551 Problem Type 2 diabetes mellitus without complication, unspecified whether jail insulin use (E11.9) Active confirmed 683172883 Problem Lacunar infarction (I63.81) Active confirmed 281826852 VITAL SIGNS Heart Rate 71 /min 12/23/2023 Blood pressure diastolic 72 mm Hg 12/23/2023 Height 64 in 12/23/2023 Blood pressure systolic 116 mm Hg 12/23/2023 Weight 172.8 lbs 12/23/2023 BMI 29.66 kg/m2 12/23/2023 Encounters Encounter Location Date Provider Diagnosis [facility] [address] [place], [place] [id number] 01/07/2023 George Clancy Abnormal mammogram R 92.8 [facility] [address] [place] [id number] 01/21/2023 George Clancy [facility] [address] [place] [id number] 01/28/2023 George Clancy [facility] [address] [place] [id number] 02/24/2023 George Clancy [facility] [address] [place] [id number] 02/24/2023 George Clancy [facility] [address] [place] [id number] 03/20/2023 George Clancy Encounter for immuni zation Z23 [facility] [address] [place] [id number] 04/22/2023 George Clancy [facility] [address] [place] [id number] 05/14/2023 George Clancy Type 2 diabetes rosa m itus without complication, without long-term current use of insulin E11.9 ; Iron deficiency anemia, unspecified iron deficiency anemia type D50.9 ; Peripheral edema R60.0 and Vitamin D deficiency E55.9 [facility] [address] [facility] [address] [place] [id number] 05/22/2023 George Clancy [facility] [address] [facility] [address] [place] [id number] 06/11/2023 George Clancy Peripheral edema R60 .0 ; Gastroesophageal reflux disease, esophagitis presence not specified K21.9 ; Heartburn R12 ; Mixed hyperlipidemia E78.2 and Intermittent diarrhea R19.7 [facility] [address] [facility] [address] [place] [id number] 06/11/2023 George Clancy [facility] [address] [place] [id number] 06/12/2023 George Clancy Gastroesophageal ref lux disease, esophagitis presence not specified K21.9 [facility] [address] [place] [id number] 06/15/2023 George Clancy [facility] [address] [place] [id number] 07/30/2023 Anni Crowdy Weakness R53.1 ; Con fusion R41.0 ; Curvature of spine M43.9 ; Neck pain M54.2 ; Mid back pain M54.9 ; Lumbago with sciatica, right side M54.41 ; Lumbago with sciatica, left side M54.42 ; Other chronic pain G89.29 ; Vitamin D deficiency E55.9 ; Pyuria R82.81 and Lacunar infarction I63.81 [facility] [address] [facility] [address] [place] [id number] 08/03/2023 Anni Crowdy [facility] [address] [facility] [address] [place] [id number] 08/07/2023 George Clancy B12 deficiency E53.8 [facility] [address] [facility] [address] [place] [id number] 10/29/2023 George Clancy Asthma, unspecified asthma severity, unspecified whether complicated, unspecified whether persistent J45.909 [facility] [address] [facility] [address] [place], [place] [id number] 10/30/2023 George Clancy [facility] [address] [place] [id number] 11/12/2023 George Clancy [facility] [address] [place], [place] [id number] 11/26/2023 George Clancy [facility] [address] [facility] [address] [place], [place] [id number] 12/23/2023 Anni Candelaria Weakness R53.1 ; Lac unar infarction I63.81 ; Vitamin D deficiency E55.9 ; Iron deficiency anemia, unspecified iron deficiency anemia type D50.9 ; Choking, initial encounter T17.308A ; Lower extremity edema R60.0 ; Type 2 diabetes mellitus without complication, without long-term current use of insulin E11.9 ; Depression with anxiety F41.8 ; Mixed hyperlipidemia E78.2 and Vitamin B12 deficiency E53.8 [facility] [address] [facility] [address] [place], [place] [id number] 12/25/2023 Anni Candelaria [facility] [address] [place], [place] [id number] 12/30/2023 Anni Candelaria B12 deficiency E53.8 [facility] [address] [place], [place] [id number] 01/06/2024 Anni Candelaria ASSESSMENTS Encounter Date Diagnosis Assessment Notes Treatment Notes Treatment Clinical Notes 01/07/2023 Abnormal mammogram (ICD-10 - R92.8) 03/20/2023 Encounter for immunization (ICD-10 - Z23) 05/14/2023 Iron deficiency anemia, unspecified iron deficiency anemia type (ICD-10 - D50.9) 05/14/2023 Type 2 diabetes mellitus without complication, without long-term current use of insulin (ICD-10 - E11.9) 06/11/2023 Gastroesophageal reflux disease, esophagitis presence not specified (ICD-10 - K21.9) 06/11/2023 Peripheral edema (ICD-10 - R60.0) Resolved 06/12/2023 Gastroesophageal reflux disease, esophagitis presence not specified (ICD-10 - K21.9) 07/30/2023 Confusion (ICD-10 - R41.0) 07/30/2023 Weakness (ICD-10 - R53.1) 08/07/2023 B12 deficiency (ICD- 10 - E53.8) 10/29/2023 Asthma, unspecified asthma severity, unspecified whether complicated, unspecified whether persistent (ICD-10 - J45.909) 12/23/2023 Weakness (ICD-10 - R53.1) Will recheck labs. B12 was very low at last visit. She has only had one B12 shot and it helped but she has not had once since. She is taking pills. 12/23/2023 Lacunar infarction (ICD-10 - I63.81) Will make referral to a different neurologist. 12/30/2023 B12 deficiency (ICD- 10 - E53.8) 07/30/2023 Curvature of spine (ICD-10 - M43.9) 12/23/2023 Vitamin D deficiency (ICD-10 - E55.9) 06/11/2023 Heartburn (ICD-10 - R12) 05/14/2023 Peripheral edema (ICD-10 - R60.0) 05/14/2023 Vitamin D deficiency (ICD-10 - E55.9) 06/11/2023 Mixed hyperlipidemia (ICD-10 - E78.2) 07/30/2023 Neck pain (ICD-10 - M54.2) 12/23/2023 Iron deficiency anemia, unspecified iron deficiency anemia type (ICD-10 - D50.9) 12/23/2023 Choking, initial encounter (ICD-10 - T17.308A) Has had issues with choking on food. Will get speech therapy evaluation. 07/30/2023 Mid back pain (ICD-1 0 - M54.9) 06/11/2023 Intermittent diarrhe a (ICD-10 - R19.7) 07/30/2023 Lumbago with sciatic a, right side (ICD-10 - M54.41) 12/23/2023 Lower extremity goldy a (ICD-10 - R60.0) Will switch HCTZ to lasix and recheck labs in 2 weeks. 12/23/2023 Type 2 diabetes mellitus without complication, without long-term current use of insulin (ICD-10 - E11.9) 07/30/2023 Lumbago with sciatic a, left side (ICD-10 - M54.42) 07/30/2023 Other chronic pain (ICD-10 - G89.29) 12/23/2023 Depression with anxiety (ICD-10 - F41.8) 12/23/2023 Mixed hyperlipidemia (ICD-10 - E78.2) 07/30/2023 Vitamin D deficiency (ICD-10 - E55.9) 12/23/2023 Vitamin B12 deficien cy (ICD-10 - E53.8) 07/30/2023 Pyuria (ICD-10 - R82.81) 07/30/2023 Lacunar infarction (ICD-10 - I63.81)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
--- OUTSIDE RECORDS SUMMARY | 2024-01-06 13:25 | XMS_ITS ---
Author Organization [facility] Address [address] [facility] [address] [facility] [address] [place] [id number] Care Team Providers Care Check Airman Name Role Phone Jeanie Jacobian Primary Care Provider [phone] Anni Candelaria Unavailable [phone] REASON FOR VISIT Test results Encounters Encounter Location Date Provider Diagnosis [place] [address] [facility] [address] [place] [id number] 12/25/2023 Anni Candelaria PLAN OF TREATMENT Next Appt Details Provider Name:Anni waller, 01/06/2024 02:30:00 PM, [address], [address], [place], [id number],
[2024-01-06 13:42] VITALS: BP 128/62; PULSE 66; RESP 16; O2SAT 95; BMI 31.6
--- NOTE | 2024-01-06 14:36 | EXP.PAIN.SOA ---
[facility] Disclaimer: The information contained in this section may have been updated after the patient was seen, as this information can be updated by other users. Medical History Anemia Arthritis Asthma Cervical (neck) region somatic dysfunction Chronic pain Degenerated intervertebral disc Depression Fibromyalgia History of renal dialysis History of TB (tuberculosis) Iron deficiency anemia Peptic ulcer disease Type 2 diabetes mellitus Surgical History History of cervical spinal surgery History of colonoscopy History of esophagogastroduodenoscopy (EGD) Family History Other Cancer Coronary artery disease Diabetes Hypertension Social History Smoking Status: Never smoker second hand exposure: No alcohol intake: never substance use type: denies use current occupational status: unemployed Travel in the last 8 weeks: None household members: none housing: house current occupational exposures/hazards: No caffeine: Yes PM Subjective & Objective Subjective Subjective:: Patient is a pleasant 68-year-old female who presents today for 1 month follow-up and medication refill. Today she rates her pain a 6 out of 10. She denies any new trauma or injury. She does state that she has been experiencing a little bit more leg swelling when she has been up on her feet for longer periods. She does state that she feels like it is completely unrelated to her pump medications. Patient does state that she has a follow-up appointment with her PCP later this afternoon. She states that her last visit she did recently have updated lab work that showed that her B12 was very low and did get put on this medication. Patient does state from our office that the increase Lyrica did seem to help and feels like it does not correlate with the increased leg swelling that she has been on this in the past with the higher dosage. Patient does also state that the tramadol really did not help however she feels like she could use an extra tablet. Patient is currently managed with Dilaudid 10 mg/mL with a daily dose of 1.9 mg/day. Tramadol 50 mg twice a day and Lyrica 100 mg 4 times a day. She denies any side effects from this medication. Her Don has been reviewed and is appropriate. Review of Systems: General: No recent weight changes, no fever, no sleep disturbances Respiratory: No cough, no shortness of air, no recurring pulmonary infections Cardiovascular/peripheral vascular: No chest pain, no palpitations, no edema, no shortness of breath Gastrointestinal: No new onset incontinence, normal bowel movements reported Genitourinary: No new onset incontinence Musculoskeletal: Low back pain Psychiatric: [Normal mood/affect] Neurological: [Denies weakness in extremities], [denies balance issues] Pain at rest (0-10 scale): 6 Objective Objective:: Physical Exam: General: Alert and oriented x3, no acute distress, pleasant and cooperative Lungs: Respirations even and unlabored, symmetrical chest expansion Eyes: PERRL Musculoskeletal: Flexion and extension of lumbar [spine] somewhat guarded secondary to pain, [antalgic gait noted] Neurological: Speech clear, no gross sensory deficit Has patient had previous pain injection?: No Conservative treatment options previously tried: Home exercise plan Length of treatment: Longer than 6 weeks Meds Home Medications and Allergies Home Medications ?Medication ?Instructions ?Recorded ?Confirmed ?Type duloxetine 60 mg capsule,delayed 120 mg PO DAILY Depression 09/09/17 01/06/24 History release vit E 12 mg-vit E mix 50 2 each PO DIRECTED Supplement 03/04/21 01/06/24 History mg-squalene 6.6 mg-phytosterol 3.3 mg capsule diclofenac sodium 20 2 pump topical BID Pain 12/26/21 01/06/24 History mg/gram/actuation (2 %) topical soln metered-dose pump hydromorphone (PF) 1 mg/mL in 0.9% 0.5 mg intrathecal CONT CHRONIC 12/26/21 01/06/24 History sodium chloride intravenous syringe PAIN ropinirole 2 mg tablet 2 mg PO HSP PRN RESTLESS LEGS 03/20/22 01/06/24 History ascorbic acid (vitamin C) 500 mg 500 mg PO QID Supplement 04/29/22 01/06/24 History tablet (Vitamin C) ergocalciferol (vitamin D2) 1,250 50,000 unit PO WEEKLY Supplement 04/29/22 01/06/24 History mcg (50,000 unit) capsule zinc sulfate 50 mg zinc (220 mg) 220 mg PO DAILY Supplement 04/29/22 01/06/24 History capsule pramipexole 1.5 mg tablet 1.5 mg PO HS . 08/05/22 01/06/24 History ondansetron 4 mg disintegrating 4 mg PO Q8H PRN nausea and 12/13/22 01/06/24 Rx tablet vomiting 4 days #12 tabs meloxicam 15 mg tablet 15 mg PO DAILY 03/03/23 01/06/24 History pregabalin 100 mg capsule 100 mg PO BID #60 caps 10/28/23 01/06/24 Rx tramadol 50 mg tablet 50 mg PO BID #60 tabs 10/28/23 01/06/24 Rx pregabalin 100 mg capsule (Lyrica) 100 mg PO QID Pain #120 caps 12/09/23 01/06/24 Rx New Prescriptions to Start Prescriptions: Allergies Allergy/AdvReac Type Severity Reaction Status Date / Time Sulfa (Sulfonamide Allergy Unknown NA-NAUSEA/V Verified 07/02/23 13:04 Antibiotics) OMITING [SULFA (SULFONAMIDE ANTIBIOTICS)] Assessment and Plan *Assessment and plan (1) Lumbar radiculopathy: Status: Acute Category: Medical Code(s): M54.16 - Radiculopathy, lumbar region (2) Degenerative disc disease, lumbar: Status: Acute Category: Medical Code(s): M51.36 - Other intervertebral disc degeneration, lumbar region Plan I will refill the patient's Lyrica and tramadol and provide 1 month supply of this medication. Patient was counseled regarding her next intrathecal pump refill that she has scheduled with [facility] on the . Patient was counseled that most likely she will be started back in clinic for the refills due to new legislation. Patient acknowledges understanding and agrees with this plan of care. We will wait until we have the updated telemetry of her next refill before scheduling her in the office. Patient will return to clinic in 1 month for reevaluation of symptoms and plan of care. Patient has been instructed to contact the clinic with any concerns before the next appointment. Dr. Tsang has reviewed this note and agrees with this plan of care. This note was dictated using voice recognition software and make contain errors or omissions. All injections are used with Lidocaine or Bupivacaine and Depo Medrol.
== END 2024-01-06 23:59 | disposition home or self-care (01) ==
PROVIDERS: PCP Physician Assistant; Visit Provider Nurse Practitioner Family
DX: M51.16 Intervertebral disc disorders with radiculopathy, lumbar region (principal); Z79.899 Other long term (current) drug therapy; Z96.82 Presence of neurostimulator; Z97.8 Presence of other specified devices
CPT/HCPCS: 99212; G0463

== ENCOUNTER 2024-02-02 15:00 | Outpatient (RCR) | payer MEDICARE, SELFPAY ==
--- NOTE | 2024-01-19 14:54 | HMH.PTOPWND ---
Rehab Outpt Wound Evaluation Rehab OP Wound Evaluation Start: 01/19/24 14:03 Freq: Status: Active Protocol: Document 01/19/24 14:39 OMER (Rec: 01/19/24 14:53 PHOLULU [id number]) E-signed By Shayne Breaux, PT Subjective/History History History This is the initial PT eval for Luiza Vega, 68 yowf who presents with c/o B LE increased edema x ~ 2 mos per her report. She reports insidious onset of B LE edema, R worse than L. She She reports increased pain in B LE with increased edema. She also reports that her edema fluctuates from time to time. She states, sometime it depends on what I eat, but sometimes it doesn't. She reports no significant PMH except chronic low back pain with an intrathecal pain pump implanted and OA in B knees. Subjective Subjective Currently she reports 2/4 TTP to B lower legs. Minimal increased erythema to B lower legs. 3+ pitting edema from upper calf distally B. L LE presents with 2 open sores ~ 1 .0 cm x 1.0 cm. New diagnosis of cancer in past 12 No months? Lymphedema Eval Classification of Lymphedema Secondary Lymphedema Yes Stemmer's sign Stemmer's Sign yes Stage of Lymphedema Lymphedema stages Stage II (Pitting edema, increased fibrosis w/ decreased pitting) Skin Changes Dry Skin Yes Taut, Shiny Skin Yes Redness Yes Discoloration of Skin Yes Other Changes Yes Affected Extremities Areas Affected by Lymphedema/Edema Right Lower Extremity,Left Lower Extremity Lower Extremity Measurements Right MTP Measurement (cm) 21.7 Heel Measurement (cm) 32.4 10 cm Proximal to Lateral Malleoli 33.2 Measurement (cm) 20 cm Proximal to Lateral Malleoli 42.7 Measurement (cm) 30 cm Proximal to Lateral Malleoli 42.7 Measurement (cm) 40 cm Proximal to Lateral Malleoli 0 Measurement (cm) 50 cm Proximal to Lateral Malleoli 0 Measurement (cm) 60 cm Proximal to Lateral Malleoli 0 Measurement (cm) Lower Extremity Measurement Total (cm) 172.7 Left MTP Measurement (cm) 21.5 Heel Measurement (cm) 31.3 10 cm Proximal to Lateral Malleoli 32.3 Measurement (cm) 20 cm Proximal to Lateral Malleoli 43.0 Measurement (cm) 30 cm Proximal to Lateral Malleoli 41.3 Measurement (cm) 40 cm Proximal to Lateral Malleoli 0 Measurement (cm) 50 cm Proximal to Lateral Malleoli 0 Measurement (cm) 60 cm Proximal to Lateral Malleoli 0 Measurement (cm) Lower Extremity Measurement Total (cm) 169.4 Manual Lymphatic Drainage Treatment Area MLD Treatment Area Right Lower Extremity,Left Lower Extremity Wound Problems/Impairments Impairments Problems/Impairmments Palpation Tenderness,Impaired Endurance,Impaired Gait Pattern,Impaired Walking, Impaired Household Care, Increased Edema,Lymphedema Present,Subjective C/O Pain, Impaired Self Care/Self Management Prognosis Rehab Potential Good Comment Skilled therapy is indicated to reduce overall edema burden and aid pt return to PLOF. Clinical Impression Consistent with Diagnosis Yes Short Term Goals Number of Weeks 2 Decreased Palpation Tenderness Yes: 1/4 B lower legs Decrease Edema Yes: 2+ pitting edema B lower legs Patient to Understand Lymphedema Yes Treatment and Exercises Decrease Girth Measurments by (cm) Yes: B LE total by 5 cm ea [facility] Goals Number of Weeks 4 Decreased Palpation Tenderness Yes: 0/4 B lower legs Decrease Edema Yes: 1+ pitting edema to B lower legs Decrease Lymphedema Yes: Minimal fibrotic edema to B lower legs Patient to be Ind w/ HEP Yes Patient to be Ind w/ [place] Yes Compression Garments Patient to Adhere Lymphedema Precautions Yes Decrease Girth Measurments by (cm) Yes: B LE total by 20 cm ea Outpatient Therapy Plan of Care Treatment Plan May Include Therapeutic Exercise Including Home Yes Exercise Program Manual Therapy Techniques Yes Neuromuscular Re-education Yes Therapeutic Activities to Return to Yes Previous Functional/Work Level ADL/Self Care Education Yes Orthotics/Bracing/Splinting Yes Vasopneumatic Compression Pump Yes Manual Lymphatic Drainage Yes Eval/Re-Eval Yes Frequency Times per week 2 Duration Number of Weeks 4 Addendums This patient is a candidate for social No or vocational rehab? Patient/Guardian verbally acknowledges Yes understanding of treatment program and consents to further treatment? Patient/Guardian verbally acknowledges Yes understanding of diagnosis, prognosis and goals for treatment? Eval Complexity PT Charges 26371 - High Complexity PHYSICIAN CERTIFICATION: I certify the specified therapy services for Luiza Fis Livingood are required, authorized, and reviewed every 30 days.
== END 2024-02-02 23:59 | disposition home or self-care (01) ==
LOC: PT 15:00
PROVIDERS: Visit Provider Physician Assistant
DX: R60.0 Localized edema (principal)
CPT/HCPCS: 97140; 97163

== ENCOUNTER 2024-02-04 14:59 | Outpatient (POV) | payer MEDICARE, SELFPAY ==
[2024-02-04 15:03] VITALS: BP 114/66; PULSE 86; RESP 16; O2SAT 93; BMI 31.6
--- NOTE | 2024-02-04 15:48 | EXP.PAIN.SOA ---
[facility] Disclaimer: The information contained in this section may have been updated after the patient was seen, as this information can be updated by other users. Medical History Anemia Arthritis Asthma Cervical (neck) region somatic dysfunction Chronic pain Degenerated intervertebral disc Depression Fibromyalgia History of renal dialysis History of TB (tuberculosis) Iron deficiency anemia Peptic ulcer disease Type 2 diabetes mellitus Surgical History History of cervical spinal surgery History of colonoscopy History of esophagogastroduodenoscopy (EGD) Family History Other Cancer Coronary artery disease Diabetes Hypertension Social History Smoking Status: Never smoker second hand exposure: No alcohol intake: never substance use type: denies use current occupational status: other Travel in the last 8 weeks: None household members: none housing: house current occupational exposures/hazards: No caffeine: Yes PM Subjective & Objective Subjective Subjective:: Patient is a pleasant 68-year-old female who presents today for follow-up. Today she rates her pain 8 out of 10. Patient states from her last visit that she recently had an episode where she had some bleeding when she went to the bathroom. Patient states she is unsure whether or not it was vaginally or rectally. Patient states she had had 4 to 5 days of diarrhea. She states it only happened the 1 day and then has not had any issues since. Patient does state that they are trying to get her scheduled for an MRI due to increased memory issues. Patient states she is unsure if this is been officially scheduled yet. Patient is currently managed with Dilaudid 10 mg/mL with a daily dose of 1.9 mg/day and is also prescribed tramadol 50 mg twice a day and Lyrica 100 mg 4 times a day. She denies any side effects from this medication. Her Don has been reviewed and is appropriate. Review of Systems: General: No recent weight changes, no fever, no sleep disturbances Respiratory: No cough, no shortness of air, no recurring pulmonary infections Cardiovascular/peripheral vascular: No chest pain, no palpitations, no edema, no shortness of breath Gastrointestinal: No new onset incontinence, normal bowel movements reported Genitourinary: No new onset incontinence Musculoskeletal: Low back pain, leg pain Psychiatric: [Normal mood/affect] Neurological: [Denies weakness in extremities], [denies balance issues] Pain at rest (0-10 scale): 8 Objective Objective:: Physical Exam: General: Alert and oriented x3, no acute distress, pleasant and cooperative Lungs: Respirations even and unlabored, symmetrical chest expansion Eyes: PERRL Musculoskeletal: Flexion and extension of lumbar [spine] somewhat guarded secondary to pain, [antalgic gait noted] Neurological: Speech clear, no gross sensory deficit Has patient had previous pain injection?: No Conservative treatment options previously tried: Prescription medications Length of treatment: Longer than 12 weeks Meds Home Medications and Allergies Home Medications ?Medication ?Instructions ?Recorded ?Confirmed ?Type duloxetine 60 mg capsule,delayed 120 mg PO DAILY Depression 09/09/17 02/04/24 History release vit E 12 mg-vit E mix 50 2 each PO DIRECTED Supplement 03/04/21 02/04/24 History mg-squalene 6.6 mg-phytosterol 3.3 mg capsule diclofenac sodium 20 2 pump topical BID Pain 12/26/21 02/04/24 History mg/gram/actuation (2 %) topical soln metered-dose pump hydromorphone (PF) 1 mg/mL in 0.9% 0.5 mg intrathecal CONT CHRONIC 12/26/21 02/04/24 History sodium chloride intravenous syringe PAIN ropinirole 2 mg tablet 2 mg PO HSP PRN RESTLESS LEGS 03/20/22 02/04/24 History ascorbic acid (vitamin C) 500 mg 500 mg PO QID Supplement 04/29/22 02/04/24 History tablet (Vitamin C) ergocalciferol (vitamin D2) 1,250 50,000 unit PO WEEKLY Supplement 04/29/22 02/04/24 History mcg (50,000 unit) capsule zinc sulfate 50 mg zinc (220 mg) 220 mg PO DAILY Supplement 04/29/22 02/04/24 History capsule pramipexole 1.5 mg tablet 1.5 mg PO HS . 08/05/22 02/04/24 History ondansetron 4 mg disintegrating 4 mg PO Q8H PRN nausea and 12/13/22 02/04/24 Rx tablet vomiting 4 days #12 tabs meloxicam 15 mg tablet 15 mg PO DAILY 03/03/23 02/04/24 History pregabalin 100 mg capsule 100 mg PO BID #60 caps 10/28/23 02/04/24 Rx pregabalin 100 mg capsule (Lyrica) 100 mg PO QID Pain #120 caps 01/06/24 02/04/24 Rx tramadol 50 mg tablet 50 mg PO BID #60 tabs 01/27/24 02/04/24 Rx New Prescriptions to Start Prescriptions: Allergies Allergy/AdvReac Type Severity Reaction Status Date / Time Sulfa (Sulfonamide Allergy Unknown NA-NAUSEA/V Verified 02/04/24 15:05 Antibiotics) OMITING [SULFA (SULFONAMIDE ANTIBIOTICS)] Assessment and Plan *Assessment and plan (1) Lumbar radiculopathy: Status: Acute Category: Medical Code(s): M54.16 - Radiculopathy, lumbar region (2) Bilateral knee pain: Status: Acute Qualifiers: Chronicity: chronic Qualified Code(s): M25.561 - Pain in right knee; M25.562 - Pain in left knee; G89.29 - Other chronic pain Category: Medical Code(s): M25.561 - Pain in right knee; M25.562 - Pain in left knee (3) Degenerative disc disease, lumbar: Status: Acute Category: Medical Code(s): M51.36 - Other intervertebral disc degeneration, lumbar region Plan I did safety counselor the patient that when she gets her MRI scheduled to let our office know that we will plan on emptying her pump out and then getting her refilled after the imaging. Patient agrees with this plan of care. I did safety counselor the patient in future if she has any more bleeding episodes that it may be beneficial to do further examination with her primary care and also in future to see about getting a colonoscopy. Patient denies any recent ones. We will follow-up with this at future visits. Patient will return to clinic on or before her next intrathecal refill of March 11. We will see the patient back in the clinic at the next intrathecal refill. Patient has been instructed to contact the clinic with any concerns before the next appointment. Dr. Tsang has reviewed this note and agrees with this plan of care. This note was dictated using voice recognition software and make contain errors or omissions. -- It Is medically necessary for this patient to continue to have their intrathecal pump refilled at regular intervals. This patient had an intrathecal pain pump implanted after meeting criteria of chronic intractable pain for greater than 3 months and failing conservative treatments. Patient has committed and been compliant to the treatment plan and all planned follow up care. Since implantation of the intrathecal pain pump, the patient has had decreased pain and been more functional. Oral medications have been reduced including intake of oral opioids. Patient continues to do well with intrathecal therapy with decrease in pain symptoms and increase in functional status. Stopping intrathecal medications can lead to life threatening withdrawal, seizures, cardiac arrest, severe pain, and possible . Pumps that are not refilled at regular intervals can be damages and cause and need for replacement. We continually titrate dose and concentration to optimize pain relief and function. We are limited in concentration for certain drugs to safely deliver medications through the pump and stay within the recommendations from the Polyanalges[employer] Consensus Committee Guidelines. Depending on dose and concentration these pumps may need to be refilled sooner than 3 months as we titrate.
== END 2024-02-04 23:59 | disposition home or self-care (01) ==
PROVIDERS: PCP Physician Assistant; Visit Provider Nurse Practitioner Family
DX: M25.561 Pain in right knee; M25.562 Pain in left knee; G89.29 Other chronic pain; M51.16 Intervertebral disc disorders with radiculopathy, lumbar region; Z97.8 Presence of other specified devices; Z96.82 Presence of neurostimulator
CPT/HCPCS: 99212; G0463

== ENCOUNTER 2024-04-11 11:00 | Outpatient (RCR) | payer MEDICARE, SELFPAY ==
--- NOTE | 2024-03-30 16:47 | HMH.PTOPWND ---
Rehab Outpt Wound Evaluation Rehab OP Wound Evaluation Start: 03/30/24 16:05 Freq: Status: Active Protocol: Document 03/30/24 16:05 OMER (Rec: 03/30/24 16:47 PHOLULU [id number]) E-signed By Shayne Breaux, PT Subjective/History History History This is the initial PT eval for Luiza Vega, 68 yowf who presents with c/o L lower leg wounds x ~ 2 mos. She reports, I bumped my leg against the cat litter box and it just got worse from there. She was found to be MRSA + with infection of her wounds and prescribed silvadene cream for home use by . She has assistance from family/friends currently for dressing changes. She has PMH of remote hx of TB, DM, depression, fibromyalgia, anemia, CLBP with intrathecal pain pump, renal insufficiency. Subjective Subjective She reports pain in her low back and intermittently throughout her body, but currently none in her Left LE. 1/4 TTP noted in the margarita- wound skin. 2+ pitting edema to B lower legs. New diagnosis of cancer in past 12 No months? Wound Eval Wound Left Medial Calf Wound Type Stasis Ulcer Is This a Chronic Wound Yes Wound Length (cm) 0.5 Wound Width (cm) 0.5 Wound Depth (cm) 0.1 Wound Bed Appearance Beefy Red Wound Margins Description Well Defined Surrounding Tissue Appearance Bright Red Edema Type Pitting Edema Degree 2+ Query Text:1+ Trace, Barely Detectable, Rebound 15-30 seconds 2+ Moderate, Slight Indentation, Rebound 10-20 seconds 3+ Deep, Deeper Indentation, Rebound > 30 seconds 4+ Very Deep, Rebound > 60 seconds Drainage Description Green Drainage Amount Small Wound Topical Solution/Irrigant Saline Irrigant Primary Dressing Silver Dressing Comment opticell Ag Comment 2 layer compression wrap Wound Debridement Method Gauze,Mechanical Wound Debridement Amount of Tissue Minimal Removed Dressing Change Patient Tolerance Tolerated Well Left Lateral Mills Wound Type Stasis Ulcer Is This a Chronic Wound Yes Wound Length (cm) 0.5 Wound Width (cm) 0.5 Wound Depth (cm) 0.1 Wound Bed Appearance Beefy Red Wound Margins Description Well Defined Surrounding Tissue Appearance Bright Red Edema Type Pitting Edema Degree 2+ Query Text:1+ Trace, Barely Detectable, Rebound 15-30 seconds 2+ Moderate, Slight Indentation, Rebound 10-20 seconds 3+ Deep, Deeper Indentation, Rebound > 30 seconds 4+ Very Deep, Rebound > 60 seconds Drainage Description Green Drainage Amount Small Primary Dressing Silver Dressing Comment opticell Ag Comment 2 layer compression wrap Wound Debridement Method Gauze,Mechanical Wound Debridement Amount of Tissue Minimal Removed Dressing Change Patient Tolerance Tolerated Well Wound Problems/Impairments Impairments Problems/Impairmments Palpation Tenderness,Impaired Strength,Impaired Endurance, Impaired Transfers,Impaired Gait Pattern,Impaired Walking, Impaired Standing,Impaired Shower/Bathing,Impaired Household Care,Increased Edema ,Subjective C/O Pain,Impaired Self Care/Self Management Prognosis Rehab Potential Good Comment Skilled therapy is indicated to reduce overall wound surface area and return pt to PLOF Clinical Impression Consistent with Diagnosis Yes Short Term Goals Number of Weeks 2 Decrease Wound Area Yes: by 25% [facility] Goals Number of Weeks 4 Decreased Palpation Tenderness Yes: 0/4 L Lower Leg Decrease Wound Area Yes: by 75% Outpatient Therapy Plan of Care Treatment Plan May Include Therapeutic Exercise Including Home Yes Exercise Program Manual Therapy Techniques Yes Neuromuscular Re-education Yes Therapeutic Activities to Return to Yes Previous Functional/Work Level Gait Training Yes ADL/Self Care Education Yes Orthotics/Bracing/Splinting Yes Manual Lymphatic Drainage Yes Wound Care Yes Eval/Re-Eval Yes Frequency Times per week 1-2 Duration Number of Weeks 4 Addendums This patient is a candidate for social No or vocational rehab? Patient/Guardian verbally acknowledges Yes understanding of treatment program and consents to further treatment? Patient/Guardian verbally acknowledges Yes understanding of diagnosis, prognosis and goals for treatment? Eval Complexity PT Charges 67488 - High Complexity PHYSICIAN CERTIFICATION: I certify the specified therapy services for [facility] are required, authorized, and reviewed every 30 days.
--- NOTE | 2024-03-30 16:47 | HMH.PTOPEV ---
PT Outpatient Evaluation Rehab PT Outpatient Evaluation Start: 03/30/24 16:05 Freq: Status: Active Protocol: Document 03/30/24 16:05 OMER (Rec: 03/30/24 16:47 OMER [id number]) E-signed By Shayne Breaux, PT Outpatient Therapy Plan of Care Treatment Plan May Include Therapeutic Exercise Including Home Yes Exercise Program Manual Therapy Techniques Yes Neuromuscular Re-education Yes Therapeutic Activities to Return to Yes Previous Functional/Work Level Gait Training Yes ADL/Self Care Education Yes Orthotics/Bracing/Splinting Yes Manual Lymphatic Drainage Yes Wound Care Yes Eval/Re-Eval Yes Frequency Times per week 1-2 Duration Number of Weeks 4 Addendums This patient is a candidate for social No or vocational rehab? Patient/Guardian verbally acknowledges Yes understanding of treatment program and consents to further treatment? Patient/Guardian verbally acknowledges Yes understanding of diagnosis, prognosis and goals for treatment? Eval Complexity PT Charges 04609 - High Complexity Outpatient Therapy Subjective History Subjective History This is the initial PT eval for Luiza Vega, 68 yowf who presents with c/o L lower leg wounds x ~ 2 mos and general weakness progressively worsening for several years. She has significantly reduced ability to transfer from sit/ stand and to ambulate. She reports having a lift chair at home, but it is still difficult for her to get out of it at it's highest point. She has PMH of remote hx of TB , DM, depression, fibromyalgia , anemia, CLBP with intrathecal pain pump, renal insufficiency. New diagnosis of cancer in past 12 No months? Chief Complaint Stiff,Weakness Prior Functional Limitations Walking Current Functional Limitations Housework,Standing,Walking, Balance Symptom Description Activity Dependent Level of pain today (0-10) 5 Pain scale - at its worst (0-10) 8 Balance Eval Gait/Posture Asssessment General Gait Observation Shuffling Step,Decrease Stride Lngth (R),Decrease Stride Lngth (L) Assistive Devices Straight Cane Level of Transfer Assist Standby Assistance Hip Observation in Gait Stance Excess Flexion,Inadequate Extension Ankle/Foot Observation in Gait Swing Decreased Foot Clearance Body Alignment Posture Rigid Timed Up and Go Test 1. Is the Timed Up and Go test result > yes or = to 12 seconds? 3. Is the Timed Up and Go Test result < no 12 seconds? [place] Feet Together/Eyes open/Stable Surface fail Feet Together/Eyes Closed/Stable Surface fail Feet Together/Eyes open/Unstable Surface fail Feet Together/Eyes Closed/Unstable fail Surface Miscellaneous Dx PT Eval Objective Objective B LE MMT: HIP FLEX 2/5, HIP ABD 3/5, KNEE EXT 3+/5, KNEE FLEX 4/5, ANKLE DF 4/5, ANKLE PF 4/5. [facility] Outpatient Therapy Assessment Impairments Problems/Impairmments Impaired Strength,Impaired Endurance,Impaired Transfers, Impaired Gait Pattern,Impaired Walking,Impaired Standing, Impaired Shower/Bathing, Impaired Household Care, Increased Edema,Lymphedema Present,Subjective C/O Pain, Impaired Self Care/Self Management Prognosis Rehab Potential Good Comment Skilled therapy is indicated to improve B LE strength, Improve transfers from sit/ stand, and improve gait with appropriate AD to return pt to [facility]. Clinical Impression Consistent with Diagnosis Yes Short Term Goals Number of Weeks 2 Increase Strength Yes: B LE grossly 3/5 throughout at least Improve Gait Pattern with Assistive Yes: increased stride length B Device Decrease TUG Time Yes: less than 50 sec Patient to be Ind w/ HEP Yes [employer] Goals Number of Weeks 4 Increase Strength Yes: B LE MMT > 4/5 throughout Increase Ability to Walk Yes: with appropriate AD at least 50 ft Decrease TUG Time Yes: less than 30 sec Patient to be Ind w/ Advanced HEP Yes Shoulder/Elbow Eval Shoulder Objective Measurements Elbow Objective Measurements PHYSICIAN CERTIFICATION: I certify the specified therapy services for [facility] are required, authorized, and reviewed every 30 days.
== END 2024-04-11 23:59 | disposition home or self-care (01) ==
LOC: PT 11:00
PROVIDERS: Visit Provider Physician Assistant
DX: R53.1 Weakness (principal); R29.898 Other symptoms and signs involving the musculoskeletal system; A49.02 Methicillin resistant Staphylococcus aureus infection, unspecified site
CPT/HCPCS: 97110; 97163; 97530

== ENCOUNTER 2024-04-29 11:28 | Day surgery (SDC) | payer MEDICARE, SELFPAY ==
[2024-04-29 11:42] VITALS: BP 115/61; PULSE 72; RESP 16; TEMP 36.5; O2SAT 90; BMI 49.9
--- NOTE | 2024-04-29 12:09 | P.PCN_ITS ---
Procedure Date: 04/29/24 Time: 12:22 Anesthesiologist:: Mari Yeboah APRN Complications:: None Pre-procedure Diagnosis:: Degenerative disc disease of lumbar spine with lumbar radiculopathy symptoms Post-procedure Diagnosis:: Same Indications for Procedure:: Patient is a pleasant 68-year-old female who presents today for intrathecal refill and reprogram. Today she rates her pain a 8 out of 10. She denies any new trauma or falls from our last visit. She does state that she feels a lot more fatigued from her last intrathecal increase and would like to decrease her pump down. Patient is currently managed with Dilaudid 10 mg/mL with a daily dose of 1.9 mg/day. She denies any side effects from this medication other than the fatigue. She is also managed with tramadol 50 mg twice a day and Lyrica 100 mg 4 times a day. She is requesting refills of her oral medications. Her Kaspe r has been reviewed and is appropriate. Physical Exam: General: Alert and oriented x3, no acute distress, pleasant and cooperative Lungs: Respirations even and unlabored, symmetrical chest expansion Eyes: PERRL Musculoskeletal: Flexion and extension of lumbar [spine] somewhat guarded secondary to pain, [antalgic gait noted] Neurological: Speech clear, no gross sensory deficit Procedure Details:: Informed consent was obtained and the risk and benefits of the procedure were explained to the patient. The patient had noninvasive monitoring placed including noninvasive blood pressure cuff and pulse oximeter. Patient's pump was interrogated. The area over the pump was cleansed with chlorhexidine as a cleansing solution. In sterile fashion the pump was accessed with a 22-gauge needle. Approximately 5 mls of the pump solution was removed and discarded appropriately. The pump was then refilled with 20 mL's of Dilaudid 10 mg/mL. The needle was withdrawn and a bandage was placed over the puncture site. The infusion rate was reprogrammed and decrease down to 1.8 mg/day. The patient tolerated well with no complication. Plan and Disposition:: Tolerated her intrathecal refill and reprogram with no complications and was discharged neurologically intact. Patient will return to clinic on or before her next intrathecal refill date. I will also make sure she has a 3-month supply of her Lyrica and tramadol. Scheduled on or before July 08, 2024 for her refill. We will see the patient back in the clinic at the next intrathecal refill. Patient has been instructed to contact the clinic with any concerns before the next appointment. Dr. Tsang has reviewed this note and agrees with this plan of care. This note was dictated using voice recognition software and make contain errors or omissions. -- It Is medically necessary for this patient to continue to have their intrathecal pump refilled at regular intervals. This patient had an intrathecal pain pump implanted after meeting criteria of chronic intractable pain for greater than 3 months and failing conservative treatments. Patient has committed and been compliant to the treatment plan and all planned follow up care. Since implantation of the intrathecal pain pump, the patient has had decreased pain and been more functional. Oral medications have been reduced including intake of oral opioids. Patient continues to do well with intrathecal therapy with decrease in pain symptoms and increase in functional status. Stopping intrathecal medications can lead to life threatening withdrawal, seizures, cardiac arrest, severe pain, and possible . Pumps that are not refilled at regular intervals can be damages and cause and need for replacement. We continually titrate dose and concentration to optimize pain relief and function. We are limited in concentration for certain drugs to safely deliver medications through the pump and stay within the recommendations from the Polyanal[employer] Consensus Committee Guidelines. Depending on dose and concentration these pumps may need to be refilled sooner than 3 months as we titrate. A UDS is needed to verify patient's compliance with our office pain contract. This is ordered based off specific treatments related to chronic pain with the potential to abuse certain medications.
[2024-04-29 12:14] VITALS: BP 120/69; PULSE 78; RESP 18; O2SAT 93
[2024-04-29 12:15] VITALS: BP 120/69; PULSE 79; RESP 18; O2SAT 93
[2024-04-29 12:45] VITALS: BP 118/71; PULSE 72; RESP 16; O2SAT 90
== END 2024-04-29 12:45 | disposition home or self-care (01) ==
LOC: SC.PAINP 11:29 → SC.PAIN 12:09
PROVIDERS: PCP Physician Assistant; Visit Provider Nurse Anesthetist, Certified Registered
DX: M51.16 Intervertebral disc disorders with radiculopathy, lumbar region (principal)
CPT/HCPCS: 62370

== ENCOUNTER 2024-06-24 10:23 | Day surgery (SDC) | payer MEDICARE, SELFPAY ==
[2024-06-24 10:37] VITALS: BP 124/68; PULSE 63; RESP 16; O2SAT 91; BMI 24.3
--- NOTE | 2024-06-24 11:05 | P.PCN_ITS ---
Procedure Date: 06/24/24 Time: 11:17 Anesthesiologist:: Mari Yeboah APRN Complications:: None Pre-procedure Diagnosis:: Degenerative disc disease of lumbar spine with lumbar radiculopathy symptoms, chronic pain syndrome Post-procedure Diagnosis:: Same Indications for Procedure:: Patient is a pleasant 69-year-old female who presents today for intrathecal refill and reprogram. She rates her pain today a 10 out of 10. She denies any new trauma or injury. She does state that she does has pain all over especially when she is up moving and walking. Patient is currently managed with Dilaudid 10 mg/mL with a daily dose of 1.8 mg/day. She denies any side effects from this medication. Patient is also managed with tramadol 50 mg twice a day and Lyrica 100 mg 4 times a day. She denies any side effects from that medication. She is asking if we can do anything to go up on any of her medications whether the Lyrica as well as her compounded cream if we can do a stronger combination. Her Don has been reviewed and is appropriate. Physical Exam: General: Alert and oriented x3, no acute distress, pleasant and cooperative Lungs: Respirations even and unlabored, symmetrical chest expansion Eyes: PERRL Musculoskeletal: Flexion and extension of lumbar [spine] somewhat guarded s econdary to pain, [antalgic gait noted] Neurological: Speech clear, no gross sensory deficit Procedure Details:: Informed consent was obtained and the risk and benefits of the procedure were explained to the patient. The patient had noninvasive monitoring placed including noninvasive blood pressure cuff and pulse oximeter. Patient's pump was interrogated. The area over the pump was cleansed with chlorhexidine as a cleansing solution. In sterile fashion the pump was accessed with a 22-gauge needle. Approximately 9.2 mls of the pump solution was removed and discarded appropriately. The pump was then refilled with 20 mL's of Dilaudid 10 mg per. The needle was withdrawn and a bandage was placed over the puncture site. The infusion rate was reprogrammed and increased 5%. The patient tolerated well with no complication. Plan and Disposition:: Patient tolerated the procedure well with no complications and was discharged neurologically intact. I did discuss with the patient regarding increasing her Lyrica and did remind her that we have tried this however because worsening symptoms and that also when we tried to decrease that then it made the symptoms also worse. I will order a stronger compounded cream for her. I will verify make sure that she has refills on her tramadol and pregabalin. Patient will return to clinic on or before their next intrathecal refill date. We will see the patient back in the clinic at the next intrathecal refill. Patient has been instructed to contact the clinic with any concerns before the next appointment. Dr. Tsang has reviewed this note and agrees with this plan of care. This note was dictated using voice recognition software and make contain errors or omissions. -- It Is medically necessary for this patient to continue to have their intrathecal pump refilled at regular intervals. This patient had an intrathecal pain pump implanted after meeting criteria of chronic intractable pain for greater than 3 months and failing conservative treatments. Patient has committed and been compliant to the treatment plan and all planned follow up care. Since implantation of the intrathecal pain pump, the patient has had decreased pain and been more functional. Oral medications have been reduced including intake of oral opioids. Patient continues to do well with intrathecal therapy with decrease in pain symptoms and increase in functional status. Stopping intrathecal medications can lead to life threatening withdrawal, seizures, cardiac arrest, severe pain, and possible . Pumps that are not refilled at regular intervals can be damages and cause and need for replacement. We continually titrate dose and concentration to optimize pain relief and function. We are limited in concentration for certain drugs to safely deliver medications through the pump and stay within the recommendations from the Polyanalgesic Consensus Committee Guidelines. Depending on dose and concentration these pumps may need to be refilled sooner than 3 months as we titrate. A UDS is needed to verify patient's compliance with our office pain contract. This is ordered based off specific treatments related to chronic pain with the potential to abuse certain medications.
[2024-06-24 11:14] VITALS: BP 124/78; PULSE 63; RESP 18; O2SAT 94
[2024-06-24 11:15] VITALS: BP 124/78; PULSE 64; RESP 18; O2SAT 94
[2024-06-24 11:26] VITALS: BP 107/64; PULSE 62; RESP 16; O2SAT 90
== END 2024-06-24 11:26 | disposition home or self-care (01) ==
PROVIDERS: PCP Physician Assistant; Visit Provider Nurse Practitioner Family
DX: M51.16 Intervertebral disc disorders with radiculopathy, lumbar region (principal); G89.4 Chronic pain syndrome
CPT/HCPCS: 62370

== ENCOUNTER 2024-08-26 13:55 | Day surgery (SDC) | payer MEDICARE, SELFPAY ==
[2024-08-26 14:06] VITALS: BP 112/69; PULSE 73; RESP 16; O2SAT 92; BMI 29.7
[2024-08-26 14:40] VITALS: BP 112/69; PULSE 73; RESP 18; O2SAT 92
[2024-08-26 14:43] VITALS: BP 112/69; PULSE 73; RESP 18; O2SAT 92
[2024-08-26 14:46] VITALS: BP 111/70; PULSE 68; RESP 16; O2SAT 92
--- NOTE | 2024-08-26 15:07 | P.PCN_ITS ---
Procedure Date: 08/26/24 Time: 14:40 Anesthesiologist:: Mari Yeboah APRN Complications:: None Pre-procedure Diagnosis:: Degenerative disc disease of lumbar spine with lumbar radiculopathy symptoms, chronic pain syndrome Post-procedure Diagnosis:: Same Indications for Procedure:: The patient is a pleasant 69-year-old female who presents today for worsening pain in her low back and bilateral legs. She does rate that pain an 8 out of 10. She denies any new falls or injuries. She states that she just feels like her legs are continuously progressing and worsening over time. Patient states there are days that she just can even get that to go to the restroom because her legs are so sore and tender and do not like to work. She does state the pain interferes with her ability perform activities of daily living such as cooking and cleaning. She is interested in any help we may be able to provide. Patient is currently managed with Dilaudid 10 mg/mL with a daily dose of 1.89 mg/day. She denies any side effects. She does state however that she does feel like she is more sleepy on a day-to-day basis and is asking if we can decrease it down some. She is prescribed tramadol and Lyrica from our office along with compounded cream. Patient states she is unsure if she needs refills. Her dosage is tramadol 50 mg twice a day and Lyrica 100 mg 4 times a day. Her Don has been reviewed and is appropriate. Physical Exam: General: Alert and oriented x3, no acute distress, pleasant and cooperative Lungs: Respirations even and unlabored, symmetrical chest expansion Eyes: PERRL Musculoskeletal: Flexion and extension of lumbar [spine] somewhat guarded secondary to pain, [antalgic gait noted] positive leg raise Neurological: Speech clear, no gross sensory deficit Procedure Details:: Informed consent was obtained and the risk and benefits of the procedure were explained to the patient. The patient had noninvasive monitoring placed including noninvasive blood pressure cuff and pulse oximeter. Patient's pump was interrogated. The area over the pump was cleansed with chlorhexidine as a cleansing solution. In sterile fashion the pump was accessed with a 22-gauge needle. Approximately 7.6 mls of the pump solution was removed and discarded appropriately. The pump was then refilled with 20 mL's of Dilaudid 10 mg/mL. The needle was withdrawn and a bandage was placed over the puncture site. The infusion rate was reprogrammed and decreased down to 1.701 mg/day of Dilaudid. The patient tolerated well with no complication. Plan and Disposition:: Patient tolerated her intrathecal refill and reprogram with no complications and was discharged neurologically intact. Patient is experiencing worsening pain in her low back with numbness and tingling into her lower extremities. Patient did have limited range of motion of her lumbar spine with a positive leg raise. I did discuss with patient that I do believe they would benefit from a lumbar epidural steroid injection. Risk and benefits were discussed with patient and the patient would like to proceed forward with this plan of care. Patient is not on any blood thinners. Patient has tried and failed conservative therapy including continued at home stretching exercise for longer than 12 weeks between injections. Patient has had chronic back pain with leg numbness for longer than 6 months. Patient has had epidurals in the past however there have not been any recent ones within the last year. We will schedule the patient for an LESI L4- L5 under fluoroscopy. I will also make sure she has refills on her tramadol and pregabalin. Patient has been instructed to contact the clinic with any concerns before the next appointment. Dr. Tsang has reviewed this note and agrees with this plan of care. This note was dictated using voice recognition software and make contain errors or omissions. All injections are used with Lidocaine, Bupivacaine and Depo Medrol. Occasionally urine drug screen is needed to verify patient's compliance with our office pain contract. This is ordered based off specific treatments related to chronic pain with the potential to abuse certain medications.
== END 2024-08-26 14:46 | disposition home or self-care (01) ==
LOC: SC.PAIN 13:56
PROVIDERS: PCP Physician Assistant; Visit Provider Nurse Practitioner Family
DX: G89.4 Chronic pain syndrome (principal); M51.16 Intervertebral disc disorders with radiculopathy, lumbar region
CPT/HCPCS: 62370; 99212; G0463

== ENCOUNTER 2024-10-25 12:07 | Day surgery (SDC) | payer MEDICARE, SELFPAY ==
[2024-10-25 12:19] VITALS: BP 96/55; PULSE 93; RESP 16; O2SAT 93; BMI 33.6
[2024-10-25 12:47] VITALS: BP 107/58; PULSE 82; RESP 16; O2SAT 90
--- NOTE | 2024-10-25 12:51 | P.PCN_ITS ---
Procedure Date: 10/25/24 Time: 12:45 Anesthesiologist:: Jose Gale CRNA Complications:: None Pre-procedure Diagnosis:: Degenerative disc lumbar spine multilevels. Lumbar radiculopathy. Lumbar spondylosis. Multilevel lumbar facet arthropathy. Lumbar postlaminectomy syndrome. DJD bilateral knees. Chronic bilateral knee pain. Chronic pain syndrome. Post-procedure Diagnosis:: Same. Indications for Procedure:: Patient is a pleasant 69-year-old female who comes our clinic today for lumbar epidural steroid injection. Patient describes some moderate low lumbar back pain. Her main area of pain is her bilateral leg radicular symptoms to the feet. She reports bilateral legs are aching, dull, sharp, stabbing at times. She reports chronic bilateral knee pain. Patient is essentially wheelchair- bound. Too weak to stand and ambulate today. She rates her pain 8/10. Patient is also managed with intrathecal pain pump. She is currently being managed with Dilaudid 10 mg/mL at a rate of 1.701 mg/day. Patient requesting intra-articular knee injections bilaterally in the near [facility]. Patient unable to travel to physical therapy. She does do home exercise. She rates her bilateral knee pain 9/10. I recommend 45 to 60 days prior to another steroid injection. Procedure Details:: Procedure: Lumbar epidural steroid injection under fluoroscopy Informed consent was obtained and the risks and benefits of the procedure were explained to the patient. The patient was taken to the procedure room and noninvasive monitors placed, including noninvasive blood pressure cuff and pulse oximeter. The back was viewed using C-arm Fluoroscopy and prepped using Chloraprep as a cleansing solution and the L5-S1 interspace was palpated. Skin and subcutaneous tissues were anesthetized using lidocaine 1.5% and a 25-gauge needle. After this, an 18-gauge Touhy epidural needle was placed into the L5-S1 interspace and advanced using fluoroscopic guidance and loss of resistance to air until the epidural space was encountered. After confirmation of needle placement in the epidural space, with dye, a solution containing normal saline, 3 mL and Depo-Medrol 80 mg were incrementally injected into the lumbar epidural space. The patient tolerated the procedure well with no complications. The patient was observed in the Pain Clinic and then discharged home neurologically intact. Plan and Disposition:: Patient was discharged without incident.
[2024-10-25] MEDS: DEXAMETHASONE 10MG/ML 1ML VIAL 10 MG (13:08)
[2024-10-25 13:09] VITALS: BP 96/55; PULSE 93; RESP 18; O2SAT 93
[2024-10-25 13:22] VITALS: BP 96/55; PULSE 93; RESP 18; O2SAT 93
== END 2024-10-25 12:47 | disposition home or self-care (01) ==
PROVIDERS: PCP Physician Assistant; Visit Provider Nurse Anesthetist, Certified Registered
DX: M47.26 Other spondylosis with radiculopathy, lumbar region (principal); M96.1 Postlaminectomy syndrome, not elsewhere classified; M17.0 Bilateral primary osteoarthritis of knee; G89.4 Chronic pain syndrome; E11.9 Type 2 diabetes mellitus without complications; D64.9 Anemia, unspecified; J45.909 Unspecified asthma, uncomplicated; F32.A Depression, unspecified; M79.7 Fibromyalgia; Z88.2 Allergy status to sulfonamides; Z79.899 Other long term (current) drug therapy; Z79.1 Long term (current) use of non-steroidal anti-inflammatories (NSAID); Z79.891 Long term (current) use of opiate analgesic
CPT/HCPCS: 62323; J1100

== ENCOUNTER 2024-10-28 13:19 | Day surgery (SDC) | payer MEDICARE, SELFPAY ==
--- NOTE | 2024-10-28 13:20 | EXP.PM.HP ---
History of Present Illness *Admission Date: 10/28/24 *Reason for visit:: Intrathecal refill; degenerative disc disease *History of present illness: Same [facility] Disclaimer: The information contained in this section may have been updated after the patient was seen, as this information can be updated by other users. Medical History Anemia Arthritis Asthma Cervical (neck) region somatic dysfunction Chronic pain Degenerated intervertebral disc Depression Fibromyalgia History of renal dialysis History of TB (tuberculosis) Iron deficiency anemia Peptic ulcer disease Type 2 diabetes mellitus Surgical History History of cervical spinal surgery History of colonoscopy History of esophagogastroduodenoscopy (EGD) Family History Other Cancer Coronary artery disease Diabetes Hypertension Social History Smoking Status: Never smoker second hand exposure: No alcohol intake: never substance use type: denies use current occupational status: other Travel in the last 8 weeks?: None household members: none housing: house current occupational exposures/hazards: No caffeine: Yes Have you lived/traveled outside US in past 30 days?: No Contact w/someone who lives/traveled outside US past 30 days?: No Exposure to someone with infectious disease in past 14 days?: No Do you have a fever (greater than 100.4 F or 38 C)?: No Have you tested positive for COVID-19?: No Exposed to someone with COVID-19 in past 14 days?: No Do you have a sore throat?: No Do you have a cough?: No Do you have any weakness?: No Do you have any diarrhea?: No Are you experiencing any unusual bleeding?: No Do you have any muscle aches/pain?: No Do you have any abdominal pain?: No Are you experiencing loss of taste or smell?: No Other Medical History Have you received the Flu Vaccine for this season: No Have you received the Pneumonia Vaccine: No Review of Systems Review of Systems Review of systems:: pertinent systems reviewed and negative unless documented below Review of systems (narrative): Review of Systems: General: No recent weight changes, no fever, no sleep disturbances Respiratory: No cough, no shortness of air, no recurring pulmonary infections Cardiovascular/peripheral vascular: No chest pain, no palpitations, no edema, no shortness of breath Gastrointestinal: No new onset incontinence, normal bowel movements reported Genitourinary: No new onset incontinence Musculoskeletal: Chronic back pain Psychiatric: [Normal mood/affect] Neurological: [Denies weakness in extremities], [denies balance issues] Meds Home Medications and Allergies Home Medications ?Medication ?Instructions ?Recorded ?Confirmed ?Type duloxetine 60 mg capsule,delayed 120 mg PO DAILY Depression 09/09/17 10/25/24 History release vit E 12 mg-vit E mix 50 2 each PO DIRECTED Supplement 03/04/21 10/25/24 History mg-squalene 6.6 mg-phytosterol 3.3 mg capsule diclofenac sodium 20 2 pump topical BID Pain 12/26/21 10/25/24 History mg/gram/actuation (2 %) topical soln metered-dose pump hydromorphone (PF) 1 mg/mL in 0.9% 0.5 mg intrathecal CONT CHRONIC 12/26/21 10/25/24 History sodium chloride intravenous syringe PAIN ropinirole 2 mg tablet 2 mg PO HSP PRN RESTLESS LEGS 03/20/22 10/25/24 History ascorbic acid (vitamin C) 500 mg 500 mg PO QID Supplement 04/29/22 10/25/24 History tablet (Vitamin C) ergocalciferol (vitamin D2) 1,250 50,000 unit PO WEEKLY Supplement 04/29/22 10/25/24 History mcg (50,000 unit) capsule zinc sulfate 50 mg zinc (220 mg) 220 mg PO DAILY Supplement 04/29/22 10/25/24 History capsule pramipexole 1.5 mg tablet 1.5 mg PO HS . 08/05/22 10/25/24 History ondansetron 4 mg disintegrating 4 mg PO Q8H PRN nausea and 12/13/22 10/25/24 Rx tablet vomiting 4 days #12 tabs meloxicam 15 mg tablet 15 mg PO DAILY 03/03/23 10/25/24 History tramadol 50 mg tablet 50 mg PO BID #60 tabs 09/20/24 10/25/24 Rx pregabalin 100 mg capsule (Lyrica) 100 mg PO QID Pain #120 caps 10/17/24 10/25/24 Rx New Prescriptions to Start Prescriptions: Allergies Allergy/AdvReac Type Severity Reaction Status Date / Time Sulfa (Sulfonamide Allergy Unknown NA-NAUSEA/V Verified 08/26/24 14:06 Antibiotics) (SULFA OMITING (SULFONAMIDE ANTIBIOTICS)) Exam Constitutional Constitutional: no acute distress and obese *Routine HEENT Exam Head: Present normocephalic and atraumatic Eye: Present PERRL ENT: Present mucous membranes moist *Routine Neck Exam Neck: Present supple *Routine Respiratory Exam Respiratory: Present CTA bilaterally *Routine Cardiovascular Exam Cardiovascular: Present RRR *Routine Abdominal Exam Abdominal: Present soft *Routine Rectal Exam Rectal:: deferred *Routine Genitalia Exam Genitalia:: deferred Routine Back/Spine/Pelvis Exam Back/Spine: Present pain with flexion *Routine Skin Exam Skin: Present intact and warm *Routine Neurological Exam Neurological: Present alert and oriented X3 Routine Psychiatric Exam Psychiatric: Present normal affect and normal thought process Assessment and Plan *Assessment and plan (1) Lumbar radiculopathy: Status: Acute Category: Medical Code(s): M54.16 - Radiculopathy, lumbar region (2) Degenerative disc disease, lumbar: Status: Acute Category: Medical Code(s): M51.369 - Other intervertebral disc degeneration, lumbar region without mention of lumbar back pain or lower extremity pain Plan Patient has been instructed to contact the clinic with any concerns before the next appointment. Dr. Tsang has reviewed this note and agrees with this plan of care. This note was dictated using voice recognition software and make contain errors or omissions. All injections are used with Lidocaine, Bupivacaine and dexamethasone. Occasionally urine drug screen is needed to verify patient's compliance with our office pain contract. This is ordered based off specific treatments related to chronic pain with the potential to abuse certain medications.
--- NOTE | 2024-10-28 13:22 | EXP.PAIN.PRO ---
Procedure Date: 10/28/24 Time: 13:48 Anesthesiologist:: Mari Yeboah APRN Complications:: None Pre-procedure Diagnosis:: Degenerative disc disease of lumbar spine with lumbar radiculopathy symptoms, chronic pain syndrome Post-procedure Diagnosis:: Same Indications for Procedure:: Patient is a pleasant 69-year-old female who presents today for intrathecal refill and reprogram. Today she rates her pain a 8 out of 10. She denies any new trauma or injury. Patient does state that she still continues to have the chronic pain in her legs. She states that she will have a couple days that are better but then it immediately is short-lived and back to her baseline. Patient denies any new falls. Patient is currently managed with Dilaudid 10 mg/mL with a daily dose of 1.701 mg/day. She denies any side effects. Patient is also managed with compounded cream.Patient is prescribed tramadol 50 mg twice a day and pregabalin 100 mg 4 times a day from our office. She denies any side effects. Patient does have chronic issues with lymphedema. Her Don has been reviewed and is appropriate. Physical Exam: General: Alert and oriented x3, no acute distress, pleasant and cooperative Lungs: Respirations even and unlabored, symmetrical chest expansion Eyes: PERRL Musculoskeletal: Flexion and extension of lumbar [spine] somewhat guarded secondary to pain, [antalgic gait noted] Neurological: Speech clear, no gross sensory deficit Procedure Details:: Informed consent was obtained and the risk and benefits of the procedure were explained to the patient. The patient had noninvasive monitoring placed including noninvasive blood pressure cuff and pulse oximeter. Patient's pump was interrogated. The area over the pump was cleansed with chlorhexidine as a cleansing solution. In sterile fashion the pump was accessed with a 22-gauge needle. Approximately 9 mls of the pump solution was removed and discarded appropriately. The pump was then refilled with 20 mL's of Dilaudid 10 mg/mL. The needle was withdrawn and a bandage was placed over the puncture site. The infusion rate was reprogrammed and continued at its current dosage. The patient tolerated well with no complication. Plan and Disposition:: Patient tolerated the procedure well with no complications and was discharged neurologically intact. I did discuss with the patient that I do believe she would benefit from home health for physical therapy. We did review over the possibility of additional injections or trying to do a small adjustment to her pump. Patient did feel like that she is already so fatigued that she may just want to sleep more with the pump increase. We will hold off on this. Patient was counseled to call our office if she would like to see about doing additional injections or the home health. Patient agrees with this plan of care. Patient will return to clinic on or before their next intrathecal refill date. We will see the patient back in the clinic at the next intrathecal refill. Patient has been instructed to contact the clinic with any concerns before the next appointment. Dr. Tsang has reviewed this note and agrees with this plan of care. This note was dictated using voice recognition software and make contain errors or omissions. -- It Is medically necessary for this patient to continue to have their intrathecal pump refilled at regular intervals. This patient had an intrathecal pain pump implanted after meeting criteria of chronic intractable pain for greater than 3 months and failing conservative treatments. Patient has committed and been compliant to the treatment plan and all planned follow up care. Since implantation of the intrathecal pain pump, the patient has had decreased pain and been more functional. Oral medications have been reduced including intake of oral opioids. Patient continues to do well with intrathecal therapy with decrease in pain symptoms and increase in functional status. Stopping intrathecal medications can lead to life threatening withdrawal, seizures, cardiac arrest, severe pain, and possible . Pumps that are not refilled at regular intervals can be damages and cause and need for replacement. We continually titrate dose and concentration to optimize pain relief and function. We are limited in concentration for certain drugs to safely deliver medications through the pump and stay within the recommendations from the Polyanalgesic Consensus Committee Guidelines. Depending on dose and concentration these pumps may need to be refilled sooner than 3 months as we titrate. A UDS is needed to verify patient's compliance with our office pain contract. This is ordered based off specific treatments related to chronic pain with the potential to abuse certain medications.
[2024-10-28 13:37] VITALS: BP 108/61; PULSE 76; RESP 16; O2SAT 91; BMI 32.4
[2024-10-28 13:47] VITALS: BP 108/61; PULSE 76; RESP 18; O2SAT 91
[2024-10-28 14:02] VITALS: BP 106/80; PULSE 75; RESP 18; O2SAT 95
== END 2024-10-28 14:02 | disposition home or self-care (01) ==
PROVIDERS: PCP Physician Assistant; Visit Provider Nurse Practitioner Family
DX: M51.16 Intervertebral disc disorders with radiculopathy, lumbar region (principal); G89.4 Chronic pain syndrome; D64.9 Anemia, unspecified; J45.909 Unspecified asthma, uncomplicated; M79.7 Fibromyalgia; F32.A Depression, unspecified; D50.9 Iron deficiency anemia, unspecified; E11.9 Type 2 diabetes mellitus without complications; M19.91 Primary osteoarthritis, unspecified site; M99.01 Segmental and somatic dysfunction of cervical region; Z88.2 Allergy status to sulfonamides; Z79.899 Other long term (current) drug therapy; Z79.891 Long term (current) use of opiate analgesic; Z87.11 Personal history of peptic ulcer disease; Z79.1 Long term (current) use of non-steroidal anti-inflammatories (NSAID)
CPT/HCPCS: 62370

== ENCOUNTER 2024-11-10 14:12 | Outpatient (POV) | payer MEDICARE, SELFPAY ==
--- OUTSIDE RECORDS SUMMARY | 2024-03-30 12:15 | XMS_ITS ---
Author Organization [facility] Address [address] [facility] [address] [place] [id number] Care Team Providers Care Vp Marketing Services [employer] Name Role Phone Anni Candelaria Primary Care Provider Results Component Value Reference Range Notes TEN-stool [...] 03/04/2024 Active Silvadene 1 % 1 application Meat Smoker ally Once a day 03/25/2024 Active Sodium [...] 90 days Active Vitamin D3 250 MCG (87305 UT) 1 cap(s) orally 3 times a [...] as needed Orally Twice a day Active [place] 3 1000 MG 1 capsule Orally Thr ee times a day; Duration: 30 day(s) Active Clindamycin HCl 300 MG 1 capsule Orally every 12 hrs; Duration: 7 day(s) Not-Taking Zegerid 20-1100 MG 1 capsule on an empt y stomach Orally Once a day; Duration: 30 day(s) Active Encounters Encounter Location Date Provider Diagnosis [facility] [address] [phone] 03/30/2024 Anni Candelaria Acute diarrhea R19.7 Assessments Encounter Date Diagnosis (ICD Code) Assessment Notes Treatment Notes Treatment Clinical Notes Section Notes 03/30/2024 Acute diarrhea (ICD-10 - R19.7) Plan Of Treatment No Information Progress Notes * CASEY NEGRONDOB:1955 (69 yo F)Acc No.[id number]:03/30/2024 Patient: CASEY TAPIA Provider: CYNTHIA Mithcell :1955 A ge:68 Y S ex:Female Date:03/30/2024 Address:[address] [place] [id number] Subjective: * Chief Complaints: * 1 . Stool sample. * Medical History: * Medications: T aking Zegerid 20-1100 MG Capsule 1 capsule on an empty stomach Orally Once a day , Taking Zinc 50 MG Tablet 1 tablet Orally Once a day , Taking Calcium 600 MG Tablet 1 tablet with meals Orally Twice a day , Taking [place] 3 1000 MG Capsule 1 capsule Orally [...] needed , Taking Vitamin D3 250 MCG (27309 UT) Capsule 1 cap(s) orally 3 times [...] * Electronic signature of CYNTHIA Moncada on 11/10/2024 at 02:15 PM EDT Sign off status: Pending * Provider: CYNTHIA Mitchell Date: 05/30/2023 Generated for Nigel corbin/Yue/[place]lyn on: 11/10/2024 02:15 PM EDT
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
--- OUTSIDE RECORDS SUMMARY | 2024-11-04 09:20 | XMS_ITS ---
[facility] [address] [facility] [address] [place] [phone] Care Team Providers Care Duplication Specialist Name Role Phone Anni Candelaria Primary Care Provider Results Component Value Reference Range Notes Urinalysis - Inhouse Reviewed date:11/09/2024 12:07:11 PM Interpretation: Performing Lab: Notes/Report: Color/Clarity dark yellow Leuk 1+ Nitrite pos Urobili 3.2 Protein 1+ pH 5.5 Blood neg Sp. Gr. 1.020 Ketone neg Bili neg Gluc neg P-Culture, Urine Reviewed date:11/08/2024 12:57:12 AM Interpretation: Performing Lab: Notes/Report: Test performed by [facility] [address] [place] [address] , [address], [place] [address] Link Uribe MD, Senior Staff Consultant CLIA: [id number] Specimen Source Urine - Void Culture, Urine [...] I=INTERMEDIATE R=RESISTANT REASON FOR VISIT Urine Sample Encounters Encounter Location Date Provider Diagnosis [facility] [address] [place], [place] [phone] 11/04/2024 Anni Candelaria Dysuria R30.0 Assessments Encounter Date Diagnosis (ICD Code) Assessment Notes Treatment Notes Treatment Clinical Notes Section Notes 11/04/2024 Dysuria (ICD-10 - R30.0) Plan Of Treatment No Information Progress Notes * CASEY NEGRONDOB:1955 (69 yo F)Acc No.[id number]:11/04/2024 Patient: CASEY TAPIA Provider: CYNTHIA Mitchell :1955 A ge:69 Y S ex:Female Date:11/04/2024 Address:[address] [place], [place] [id number] Subjective: * Chief Complaints: * 1 . Urine Sample. * Medical History: Objective: * Vitals: Assessment: * Assessment: 1. D ysuria - R30.0 Plan: * Treatment: Value Reference Range C [...] Information: * Visit Code: * Procedure Codes: 27605 Urinalysis, no micro. * Electronic signature of CYNTHIA Moncada on 11/10/2024 at 02:15 PM EDT Sign off status: Pending * Provider: CYNTHIA Mitchell Date: 0 11/04/2024 Generated for Nigel corbin/Yue/Tezitting on: 0 11/10/2024 02:15 PM EDT
--- OUTSIDE RECORDS SUMMARY | 2024-11-10 14:15 | XMS_ITS | Patient Health Record ---
[facility] Organization [facility] Address [address] [place] [id number] Care Team Providers Care Industrial Economist Name Role Phone Anni Candelaria Primary Care Provider [phone] George Jcaob Unavailable [phone] Allergies Allergen (clinical drug ingredient) Drug/Non Drug Allergy documented on EMR Reaction Allergy Type Onset Date Status rosuvastatin Crestor muscle pain Drug Allergy Ac tive Sulfamethoxazole vomiting Drug Allergy Active Results Component Value Reference Range Notes Urinalysis - Inhouse Reviewed date:11/09/2024 12:07:11 PM Interpretation: Performing Lab: Notes/Report: Color/Clarity dark yellow Leuk 1+ Nitrite pos Urobili 3.2 Protein 1+ pH 5.5 Blood neg Sp. Gr. 1.020 Ketone neg Bili neg Gluc neg P-Culture, Urine Reviewed date:11/08/2024 12:57:12 AM Interpretation: Performing Lab: Notes/Report: Test performed by [facility] [address] [place] [address] , [address], [place] [address] Link Uribe MD, Glassware Selector CLIA: [id number] Specimen Source Urine - Void Culture, Urine See Below See Microbiol ogy Report Escherichia coli >100,000 CFU/ml Escherichia coli Sensitivity Panel See Below Organism E. coli Antibiotic INTERP Amikacin S Ampicillin R Aztreonam S Cefepime S Cefoxitin S Ceftazidime S Ceftriaxone S Cefuroxime S Ciprofloxacin R Ertapenem S Gentamicin R Imipenem S Levofloxacin R Meropenem S Nitrofurantoin S Piperacillin/Tazo S Tetracycline R Tobramycin R Trimeth/Sulfa S S=SUSCEPTIBLE I=INTERMEDIATE R=RESISTANT P-Magnesium Reviewed date:03/21/2024 09:19:16 PM Interpretation: Performing Lab: Notes/Report: Test performed by [facility] [address] [place] [address] [facility], [place] [id number] Link Uribe MD, [employer] Selector CLIA: [id number] Magnesium 2.2 1.6-2.4 mg/dL P-Comprehensive Metabolic Pa deion (CMP) Reviewed date:03/21/2024 09:19:16 PM Interpretation: Performing Lab: Notes/Report: Test performed by [facility] [address] [place] [address] [address], [place] [address] Link Uribe MD, [employer] CLIA: [id number] Sodium 141 135-145 mmol/L Potassium 4.1 3.5-5.3 mmol/L Chloride 103 97-108 mmol/L CO2 28 22-32 mmol/L Glucose 102 65-99 mg/dL BUN 8 8-23 mg/dL Creatinine 0.67 0.50-1.00 mg/dL Calcium 8.6 8.6-10.4 mg/dL eGFR by Creatinine 95 >59 mL/min/1.73m2 Protein 5.6 6.0-8.3 g/dL Albumin 3.5 3.5-5.3 g/dL Alkaline Phosphatase 74 35-121 IU/L ALT (SGPT) 8 <5-47 IU/L AST (SGOT) 14 <5-40 IU/L Bilirubin, Total <0.2 <0.2-1.2 mg/dL A/G Ratio 1.7 1.1-2.5 CBC Venipuncture (in house) Reviewed date:03/21/2024 09:19:15 PM Interpretation: Performing Lab: Notes/Report: wbc 4.8 3.5 - 10 lymph 21.8 15 - 50 mid 7.3 2 - 15 gran 70.9 35 - 80 rbc 3.07 3.5 - 5.5 hgb 10.0 11.5 - 16.5 hct 30.2 35 - 55 mcv 98.3 75 - 100 mch 32.6 25 - 35 mchc 33.1 31 - 38 platlet 163 100 - 400 TEN-stool panel Reviewed date:01/29/2024 03:58:04 PM Interpretation:Abnormal Performing Lab: Notes/Report: Abnormal proBrain Natriuretic Peptide Reviewed date:12/25/2023 11:28:03 AM Interpretation:Normal Performing Lab: Notes/Report: Test performed by [facility] [address] [place] [address] , [address], [place] [address] Link Uribe MD, Glass[employer] Selector CLIA: [id number] proBrain Natriuretic Peptide 173 <300 pg/mL Please note the updated reference range values which are stratified by age. Positive >900 pg/mL Indeterminate 300-900 pg/mL Negative <300 pg/mL CBC Venipuncture (in house) Reviewed date:01/15/2024 02:39:26 PM Interpretation:Not Performed Performing Lab: Notes/Report: Not Performed P-Basic Metabolic Panel (BMP ) Reviewed date:01/07/2024 12:54:20 PM Interpretation:Cr 1.21, gfr 49 Performing Lab: Notes/Report: Test performed by [facility] [address] [place] [address] , [address], [place] [address] Link Uribe MD, [employer] Selector CLIA: [id number] Sodium 136 135-145 mmol/L Potassium 4.3 3.5-5.3 mmol/L Chloride 99 97-108 mmol/L CO2 28 22-32 mmol/L Glucose 80 65-99 mg/dL BUN 21 8-23 mg/dL Creatinine 1.21 0.50-1.00 mg/dL Calcium 8.9 8.6-10.4 mg/dL eGFR by Creatinine 49 >59 mL/min/1.73m2 CBC Fingerstick (in house) Reviewed date:02/04/2024 11:02:56 PM Interpretation: Performing Lab: Notes/Report: wbc 4.2 3.5 - 10 lym 23.8 15 - 50 mid 5.9 2 - 15 gran 70.3 35 - 80 rbc 3.28 3.5 - 5.5 hgb 10.9 11.5 - 16.5 hct 33.5 35 - 55 mcv 102.2 75 - 100 mch 33.3 25 - 35 mchc 32.6 31 - 38 plat 115 100 - 400 TEN-stool panel Reviewed date:04/07/2024 09:51:51 AM Interpretation:Abnormal Performing Lab: Notes/Report: Abnormal TEN-stool panel Reviewed date:04/07/2024 09:51:51 AM Interpretation:Abnormal Performing Lab: Notes/Report: Abnormal Glycohemoglobin A1c (in hous e) Reviewed date:11/03/2024 03:13:20 PM Interpretation:4.8% Performing Lab: Notes/Report: 4.8% glycohemoglobin 4.8% 5 - 6.5 % P-Vitamin B12 Reviewed date:11/03/2024 03:13:20 PM Interpretation:>2000 Performing Lab: Notes/Report: Test performed by [facility] [address] [place] [address] [address] , [place] [address] Link Uribe MD, [employer]or CLIA: [id number] Vitamin B12 >2000 232-1245 pg/mL P-Ferritin Reviewed date:11/03/2024 03:13:20 PM Interpretation: Performing Lab: Notes/Report: Test performed by [facility] [address] [place] [address] [place] [address] Link Uribe MD, [employer]or CLIA: [id number] Ferritin 117.0 13.0-301.0 ng/mL P-Lipid Panel Reviewed date:11/03/2024 03:13:20 PM Interpretation:Trigs 200 Performing Lab: Notes/Report: Test performed by [facility] [address] [place] [address] [address], [place] [address] Lnik Uribe MD, [employer] Selector CLIA: [id number] Cholesterol 178 <200 mg/dL Triglycerides 200 <150 [...] Interpretation:Normal Performing Lab: Notes/Report: Test performed by [facility] [address] [place] [address] , [place] [address] Link Uribe MD, Glass[employer] Selector CLIA: [id number] Magnesium 2.0 1.6-2.4 mg/dL P-Vitamin D 25-Hydroxy Reviewed date:11/03/2024 03:13:20 PM Interpretation:Normal Performing Lab: Notes/Report: Test performed by [facility] [address] [place] [address] , [place] [id number] Link Uribe MD, Glassware Selector CLIA: [id number] Vitamin D 25-Hydroxy 54.7 30.0-100.0 ng/mL Interpretation [...] Interpretation:>2000 Performing Lab: Notes/Report: Test performed by [facility] [address] , [address], [place] [address] Link Uribe MD, Glassware Selector CLIA: [id number] Vitamin B12 >2000 232-1245 pg/mL P-Comprehensive Metabolic Pa deion (CMP) Reviewed date:12/25/2023 11:28:03 AM Interpretation:Cr 1.13, gfr 53 Performing Lab: Notes/Report: Test performed by [facility] [address] , [address], [place] [address] Link Uribe MD, Glass[employer] Selector CLIA: [id number] Sodium 140 135-145 mmol/L Potassium 4.1 3.5-5.3 [...] Interpretation:Normal Performing Lab: Notes/Report: Test performed by [facility] [address] , [address], [place] [address] Link Uribe MD, Glassware Selector CLIA: [id number] Ferritin 169.0 13.0-301.0 ng/mL P-Iron Reviewed date:12/25/2023 11:28:03 AM Interpretation:Normal Performing Lab: Notes/Report: Test performed by [facility] [address] , [address], [place] [address] Link Uribe MD, Glass[employer] Selector CLIA: [id number] Iron 68 37-145 ug/dL P-Lipid Panel Reviewed date:12/25/2023 11:28:03 AM Interpretation:Normal Performing Lab: Notes/Report: Test performed by [facility] [address] [place] [address] , [address], [place] [address] Link Uribe MD, Glass[employer] Selector CLIA: [id number] Cholesterol 161 <200 mg/dL Triglycerides 82 <150 [...] Interpretation:Normal Performing Lab: Notes/Report: Test performed by [facility] [address] [place] [address] , [place] [address] Link Uribe MD, [employer] Selector CLIA: [id number] TSH reflex to FT4 1.25 0.43-5.25 mU/L P-Vitamin D 25-Hydroxy Reviewed date:12/25/2023 11:28:03 AM Interpretation:41.9 Performing Lab: Notes/Report: Test performed by [facility] [address] [place] [address] , [place] [address] Link Urieb MD, Glassware Selector CLIA: [id number] Vitamin D 25-Hydroxy 41.9 30.0-100.0 ng/mL Interpretation of Vitamin D 25 OH: < 20 ng/mL - Deficiency 20 - 29 ng/mL - Insufficiency 30 - 100 ng/mL - Sufficiency > 100 ng/mL - Super-therapeutic- toxicity may occur above this level. Clinical correlation required. B-Type Natriuretic Peptide Reviewed date:03/21/2024 09:19:16 PM Interpretation: Performing Lab: Notes/Report: Test performed by [facility] [address] [place] [address] , [place] [address] Link Uribe MD, Glass[employer] Selector CLIA: [id number] B-Type Natriuretic Peptide 47.0 <2.0-100.0 pg/mL CBC Venipuncture (in house) Reviewed date:11/03/2024 03:13:20 [...] - 38 platlet 202 100 - 400 P-Comprehensive Metabolic Pa deion (CMP) Reviewed date:11/03/2024 03:13:20 PM Interpretation:BUN 25, Creat 1.14, eGFR 52 Performing Lab: Notes/Report: Test performed by [facility] [address] [place] [address] , [address], [place] [address] Link Uribe MD, Glassware Selector CLIA: [id number] Sodium 138 135-145 mmol/L Potassium 5.2 3.5-5.3 [...] <0.2 <0.2-1.2 mg/dL A/G Ratio 1.1 1.1-2.5 P-Iron Reviewed date:11/03/2024 03:13:20 PM Interpretation:36 Performing Lab: Notes/Report: Test performed by [facility] [address] [place] [address] , [address], [place] [address] Link Uribe MD, Glassware Selector CLIA: [id number] Iron 36 37-145 ug/dL Modified barium swallow Reviewed date:02/18/2024 02:12:48 PM Interpretation: Performing Lab: Notes/Report: Reason For Referral Diagnosis 1 Lacunar infarction ( I63.81) Referral Organization [facility] Referring Provider First Name Anni Referring Provider Last Name Bari Referring Provider Speciality Physician Mirror Specialist Referred Provider Neurology, . Referred Provider Specialty Neurology General Notes Anni Candelaria 2023 11:52:22 AM > Dr. Prudencio Thornton at [facility], please send [address] , Lili Jimenes 12/23/2023 1:35:12 PM > have called several times and no answer; is the only number I can find to call online, Lili Jimenes 12/28/2023 11:55:57 AM > faxed referral to Referral Priority Routine Diagnosis 1 Choking, initial enc ounter (T17.308A) [facility] Referring Provider First Name Anni Referring Provider Last Name Bari Referring Provider Speciality Physician Mirror Specialist Referred Provider Speech Therapy, . Referred Provider Specialty Speech Thera py General Notes Anni Candelaria 2023 12:02:10 PM > Needs eval at [facility], patient will schedule, Monica Nagy 01/26/2024 9:03:43 AM > Patients daughter called she works at [facility] and said they are waiting on this order. She asked to have this faxed to [phone] Referral Priority Routine Diagnosis 1 Lower extremity goldy a (R60.0) [facility] Referring Provider First Name Anni Referring Provider Last Name Bari Referring Provider Speciality Physician Mirror Specialist Referred Provider Physical Therapy, . Referred Provider Specialty Physical The rapist General Notes Anni Candelaria 01/05 3:05:38 PM > Patient needs to see Yudy Perry Brynn 01/06/2024 4:20:25 PM > faxed to [facility] PT Referral Priority Routine Diagnosis 1 Leg weakness, bilate ral (R29.898) Referral Organization [facility] Referring Provider First Name Anni Referring Provider Last Name Bari Referring Provider Speciality Physician Mirror Specialist Referred Provider Physical Therapy, . Referred Provider Specialty Physical The rapist General Notes Anni Candelaria 03/21 9:57:54 AM > Needs to coordinate PT with wound care, Lili Jimenes 03/21/2024 10:08:18 AM > faxed to [facility] PT Referral Priority Routine Reason patient needs wound care Diagnosis 1 MRSA infection (A49. 02) Referral Organization [facility] Referring Provider First Name Anni Referring Provider Last Name Bari Referring Provider Speciality Physician Mirror Specialist General Notes Lili Jimenes 03/22/20 9:00:43 AM > faxed to [facility] PT Referral Priority Routine Medications Medication SIG (Take, Route, Frequency, Duration) Notes Start Date End Date Status Colesevelam HCl 625 mg TAKE THREE TABLET S BY MOUTH TWICE DAILY with meals; Duration: 30 Active Docusate Sodium 100 mg TAKE ONE CAPSULE BY MOUTH TWICE DAILY; Duration: 30 Active Acetaminophen Extra Strength 500 mg TAKE ONE TABLET BY MOUTH THREE TIMES DAILY; Duration: 30 Active Silvadene 1 % 1 application Externally Once a day 03/25/2024 Active Zinc 50 MG 1 tablet Orally Once a day; Duration: 30 day(s) Active Zegerid 20-1100 MG 1 capsule on an empt y stomach Orally Once a day; Duration: 30 day(s) Active Meloxicam 15 mg TAKE ONE TABLET BY MOUTH EVERY DAY - TAKE WITH FOOD-; Duration: 30 Active Furosemide 20 MG 1 tablet Orally Once a day; Duration: 30 days Active Doxycycline Monohydrate 100 MG 1 capsule Orally every 12 hrs; Duration: 10 day(s) 03/04/2024 Not-Taking rOPINIRole HCl 2 MG TAKE 1 TABLET ONE TI ME DAILY 1 TO 3 HOURS BEFORE BEDTIME; Duration: 30 Active Sodium Bicarbonate 650 MG 2 tabs Orally once daily; Duration: 90 days 11/27/2023 Active Cymbalta 60 MG 2 cap(s) orally once a day; Duration: 90 days Active Calcium 600 MG 1 tablet with meals Orally Twice a day; Duration: 30 day(s) Active Tylenol 325 MG 1 cap(s) orally 3 ti mes a day Active Imodium A-D DIRECTED Active Lyrica 100 MG 1 cap(s) orally Four times a day Active traMADol HCl 50 MG 1 tablet as needed Orally Twice a day Active Breo Ellipta 200-25 MCG/ACT 1 puff(s) inhaled once a day; Duration: 90 days Active Fluticasone Propionate 50 MCG/ACT 1 spray(s) in each nostril once a day 01/17/2021 Active Vitamin D3 250 MCG (50788 UT) 1 cap(s) orally 3 times a week; Duration: 30 days 10/28/2018 Active ProAir Digihaler 108 (90 Base) MCG/ACT 2 puff(s) inhaled 4 times a day as needed; Duration: 90 days Active Cefuroxime Axetil 250 MG 1 tablet Orally every 12 hrs; Duration: 7 days 11/08/2024 Active B12 5000 MCG as directed Sublingual Active Batavia 3 1000 MG 1 capsule Orally Thr ee times a day; Duration: 30 day(s) Active Clindamycin HCl 300 MG 1 capsule Orally every 12 hrs; Duration: 7 day(s) Not-Taking Magnesium Oxide -Mg Supplement 400 (240 Mg) MG TAKE ONE TABLET BY MOUTH TWICE DAILY; Duration: 30 Active Immunizations Vaccine Route Administration Date Status Comme nts COVID 19 Pfizer Unknown 11/01/2020 Administered COVID 19 Pfizer Unknown 11/22/2020 Administered Fluzone High Dose (65yr and older) IM Intramuscular 01/16/2022 Administered Fluzone High Dose (65yr and older) IM Intramuscular 03/20/2023 Administered Fluzone High Dose (65yr and older) IM Intramuscular 02/04/2024 Administered Fluzone PF Quad (6-35 months) Unknown 02/19/2021 Administered Fluzone Quad (6months&older) IM Intramuscular 02/03/2019 Administered Fluzone Quad (6months&older) IM Intramuscular 01/19/2020 Administered Fluzone Quad-Medicare (6months&older) IM Intramuscular 01/28/2018 Administered PNEUMOVAX 23 VACCINE Unknown 03/03/2017 Administered Prevnar (PCV13) IM Intramuscular 04/29/2018 Administered Prevnar (PCV20) IM Intramuscular 03/20/2023 Administered Shingrix Unknown 02/19/2021 Administered Shingrix Unknown 08/01/2021 Administered Problems Problem Type SNOMED Code ICD Code Onset Dates Problem Status W/U Status Risk Notes Problem Vitamin D deficiency (81956266) Vitamin D deficiency (E55.9) Active confirmed Problem Abnormal mammogram (940374305) Abnormal mammogram (R92.8) Active confirmed Problem Hypertriglyceridemia (618964733) Hypertriglyceridemia (E78.1) Active confirmed Problem Osteopenia (674345435) Osteopenia (M85.80) Active confirmed Problem Mixed anxiety and depressive disorder (641981600) Depression with anxiety (F41.8) Active confirmed Problem Lymphedema (76136733) Lymphedema (I89.0) Active confirmed Problem Sciatica (30555889) Lumbago with sciatica, right side (M54.41) Active confirmed Problem Mixed hyperlipidemia (333530753) Mixed hyperlipidemia (E78.2) Active confirmed Problem Hypomagnesemia (124470940) Hypomagnesemia (E83.42) Active confirmed Problem Primary insomnia (4728078) Primary insomnia (F51.01) Active confirmed Problem Chronic pain (68554598) Other chronic pain (G89.29) Active confirmed Problem Sciatica (95973996) Lumbago with sciatica, left side (M54.42) Active confirmed Problem Degeneration of cervical intervertebral disc (53497704) Degenerative disc disease, cervical (M50.30) Active confirmed Problem Chronic pain (24516703) Other chronic pain (G89.29) Active confirmed Problem Gastroesophageal reflux disease (314463044) Gastroesophageal reflux disease, esophagitis presence not specified (K21.9) Active confirmed Problem History of tuberculosis (796705356) 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) Active confirmed Problem Osteoarthritis of knee (968951110) Primary osteoarthritis of both knees (M17.0) Active confirmed Problem Iron deficiency anemia (97371714) Iron deficiency anemia, unspecified iron deficiency anemia type (D50.9) Active confirmed Problem Methicillin resistan t Staphylococcus aureus infection (806137952) MRSA infection (A49.02) Active confirmed Problem Dysphagia (54860833) Dysphagia, unspecified type (R13.10) Active confirmed Problem Mammography abnormal (627349413) Abnormal mammogram of right breast (R92.8) Active confirmed Problem Type II diabetes mellitus without complication (202686377) Type 2 diabetes mellitus without complication, without long-term current use of insulin (E11.9) Active confirmed Problem Asthma without statu s asthmaticus (18167192) Asthma, unspecified asthma severity, unspecified whether complicated, unspecified whether persistent (J45.909) Active confirmed Problem Allergic rhinitis (60859900) Allergic rhinitis, unspecified seasonality, unspecified trigger (J30.9) Active confirmed Problem Type II diabetes mellitus without complication (865674769) Type 2 diabetes mellitus without complication, unspecified whether terminal block assembler insulin use (E11.9) Active confirmed Problem Daytime hypersomnia (35242776001935) Daytime hypersomnia (G47.10) Active confirmed Problem Lacunar infarction (831205835) Lacunar infarction (I63.81) Active confirmed Vital Signs Heart Rate 77 /min 10/28/2024 Blood pressure diastolic 60 mm Hg 10/28/2024 Height 64 in 10/28/2024 Blood pressure systolic 80 mm Hg 10/28/2024 Weight 000 lbs 10/28/2024 BMI 29.66 kg/m2 03/25/2024 Encounters Encounter Location Date Provider Diagnosis [facility] [address] [place] [id number] 12/23/2023 Anni Crowdy Weakness R53.1 ; Lac unar infarction I63.81 ; Vitamin D deficiency E55.9 ; Iron deficiency anemia, unspecified iron deficiency anemia type D50.9 ; Choking, initial encounter T17.308A ; Lower extremity edema R60.0 ; Type 2 diabetes mellitus without complication, without long-term current use of insulin E11.9 ; Depression with anxiety F41.8 ; Mixed hyperlipidemia E78.2 and Vitamin B12 deficiency E53.8 [facility] [address] [place] [id number] 12/30/2023 Anni Crowdy B12 deficiency E53.8 [facility] [address] [place] [id number] 01/06/2024 Anni Crowdy B12 deficiency E53.8 ; Lower extremity edema R60.0 ; Wound of left lower extremity, initial encounter S81.802A and Chronic diarrhea K52.9 [facility] [address] [place] [id number] 01/27/2024 Anni Crowdy Chronic diarrhea K52 .9 [facility] [address] [place] [id number] 02/04/2024 Anni Crowdy Rectal fissure K60.2 ; Blood in stool K92.1 ; Snoring R06.83 and Daytime hypersomnia G47.10 [facility] [address] [place] [id number] 03/04/2024 Anni Crowdy Lymphedema I89.0 and Left leg cellulitis L03.116 [facility] [address] [place], [place] [id number] 03/18/2024 Anni Crowdy MRSA infection A49.0 2 ; Leg weakness, bilateral R29.898 ; Lower extremity edema R60.0 ; Acute diarrhea R19.7 and Hypomagnesemia E83.42 [facility] [address] [place], [place] [id number] 03/25/2024 Anni Crowdy MRSA infection A49.0 2 ; Leg weakness, bilateral R29.898 ; Lower extremity edema R60.0 and Acute diarrhea R19.7 [facility] [address] [place], [place] [id number] 03/30/2024 Anni Crowdy Acute diarrhea R19.7 [facility] [address] [place], [place] [id number] 10/28/2024 Anni Crowdy Vitamin D deficiency E55.9 ; Acute hypotension I95.9 ; Iron deficiency anemia, unspecified iron deficiency anemia type D50.9 ; Type 2 diabetes mellitus without complication, without long-term current use of insulin E11.9 ; Mixed hyperlipidemia E78.2 ; Vitamin B12 deficiency E53.8 ; Hypomagnesemia E83.42 ; Renal insufficiency N28.9 and Weakness R53.1 [facility] [address] [place], [place] [id number] 11/04/2024 Anni Crowdy Dysuria R30.0 [facility] [address] [place], [place] [id number] 11/08/2024 Anni Crowdy [facility] [address] [place] [id number] 11/26/2023 George Billings [facility] [address] [place], [place] [id number] 12/25/2023 Anni Crowdy [facility] [address] [place], [place] [id number] 01/06/2024 Anni Crowdy [facility] [address] [place] [id number] 01/07/2024 Anni Crowdy [facility] [address] [place], [place] [id number] 01/28/2024 Anni Crowdy Dysphagia, unspecifi ed type R13.10 [facility] [address] [place], [place] [id number] 01/29/2024 Anni Crowdy [facility] [address] [place] [id number] 02/19/2024 George Billings [facility] [address] [place] [id number] 03/11/2024 Anni Crowdy [facility] [address] [place], [place] [id number] 03/17/2024 Anni Crowdy [facility] [address] [place] [id number] 03/21/2024 Anni Crowdy MRSA infection A49.0 2 [facility] [address] [place] [id number] 03/21/2024 Anni Crowdy [facility] [address] [place] [id number] 03/25/2024 Anni Crowdy [facility] [address] [place] [id number] 06/20/2024 Anni Crowdy [facility] [address] [place], [place] [id number] 09/30/2024 Anni Crowdy [facility] [address] [place] [id number] 11/01/2024 Anni Crowdy [facility] [address] [place], [place] [id number] 11/03/2024 Anni Crowdy Assessments Encounter Date Diagnosis (ICD Code) Assessment Notes Treatment Notes Treatment Clinical Notes Section Notes 12/23/2023 Weakness (ICD-10 - R53.1) Will recheck labs. B12 was very low at last visit. She has only had one B12 shot and it helped but she has not had once since. She is taking pills. 12/23/2023 Lacunar infarction (ICD-10 - I63.81) Will make referral to a different neurologist. 12/30/2023 B12 deficiency (ICD-10 - E53.8) 01/06/2024 B12 deficiency (ICD-10 - E53.8) Can start taking oral B12, 1,000mcg daily and will recheck in 2 months. 01/06/2024 Lower extremity edema (ICD-10 - R60.0) Will check to make sure patient is tolerating the lasix and renal function is normal. Will need to see Candy Loi to try to decrease edema and heal the leg wounds 01/27/2024 Chronic diarrhea (ICD-10 - K52.9) 01/28/2024 Dysphagia, unspecified type (ICD-10 - R13.10) 02/04/2024 Blood in stool (ICD-10 - K92.1) 02/04/2024 Rectal fissure (ICD-10 - K60.2) The patient had a normal BM today with no blood. She has been putting vaseline on the rectum. Will continue to keep stools soft and limit straining for the next week. CBC shows no significant decrease in her HGB. 03/04/2024 Lymphedema (ICD-10 - I89.0) Patient currently is being treating in PT for lymphedema and is going to get a lymphedema pump. 03/04/2024 Left leg cellulitis (ICD-10 - L03.116) The left leg was wrapped today with telfa and an ROBEL. She is going to call today to schedule a f/u with wound care. 03/18/2024 MRSA infection (ICD-10 - A49.02) CBC has improved. She is still taking clindamycin. 03/18/2024 Leg weakness, bilateral (ICD-10 - R29.898) 03/21/2024 MRSA infection (ICD-10 - A49.02) 03/25/2024 MRSA infection (ICD-10 - A49.02) Will try to get wound culture results from [facility]. She has had C. Diff in the [...] 03/25/2024 Leg weakness, bilateral (ICD-10 - R29.898) 10/28/2024 Vitamin D deficiency (ICD-10 - E55.9) 10/28/2024 Acute hypotension (ICD-10 - I95.9) The last time she had hypotension, her iron was very low and she had to have infusions. Will increase fluids. HGB is slightly low but no need for transfusion. Will await iron level as she will likely have to go back to the production general[facility] for more infusions. Will continue to monitor BP. 11/04/2024 Dysuria (ICD-10 - R30.0) 01/06/2024 Wound of left lower extremity, initial encounter (ICD-10 - S81.802A) 10/28/2024 Iron deficiency anemia, unspecified iron deficiency anemia type (ICD-10 - D50.9) 03/30/2024 Acute diarrhea (ICD-10 - R19.7) 03/25/2024 Lower extremity edema (ICD-10 - R60.0) Needs to continue with wound care. 03/18/2024 Lower extremity edema (ICD-10 - R60.0) Needs to continue with wound care. Her son is going to call and get her back into [facility]. Hopefully they can coordinate wound care and some PT. 02/04/2024 Snoring (ICD-10 - R06.83) 12/23/2023 Vitamin D deficiency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
--- OUTSIDE RECORDS SUMMARY | 2024-11-10 14:15 | XMS_ITS | Data Portability ---
Author Organization [place] [facility] [place] [facility] [place] [facility] AD[facility] Address [address] [place] [id number] Care Team Providers Care Lime Mixer Name Role Phone EDY HERMAN Primary Care Provider Assessment Encounter Date Assessment Date Assessment LastModified by Organization Details LastModified Time 01/20/2024 01/20/2024 -MRI brain w/ and w/out for cognitive impairment, gait difficulties -lab workup for cognitive impairment -B complex vitamin -cognitive exercises -offered PT; pt unable to due to chronic pain -f/u with Pain Management -f/u [place] [id number] Not available 01/20/2024 16:05:08 Plan of Treatment Reminders Order Date Submit Date Provider Last Modified By Organization Details Last Modified Time Details Appointments None recorded. Lab CBC w/ auto diff 2024 025 [facility], [address] , [place], [address], 5 17:49:41 vitamin B12 + folate, serum or blood 2024 025 [email or web address] [facility], [address] , [place], [address], 5 09:02:13 CMP, serum or plasma 2024 025 [facility], [address], [place], [address], 5 18:56:02 iron + TIBC + ferritin, serum 2024 025 [email or web address] 6 [facility], [address] [place], [address], 5 09:02:12 iron saturation, serum 2024 025 [email or web address] 6 [facility], [address] [place], [address], 5 09:02:13 CBC w/ auto diff 2023 024 [email or web address] 6 [facility], [address] [place], [address], 4 10:24:30 iron + TIBC + ferritin, serum 2023 024 [email or web address] 6 [facility], [address] [place], [address], 4 10:24:30 iron saturation, serum [email or web address] [place] [address] Lab, [address] [place], [address], 4 10:24:30 PTH (parathyroi d hormone), intact, serum or plasma 2023 024 [email or web address] [facility], [address] [place], [address], 4 13:13:10 vitamin D, 25-hydroxy, total, serum [address]23 [email or web address] [place] [address] Lab, [address] [place], [address], 4 08:30:01 immunofixat ion, serum 2023 024 [email or web address] 6 [facility], [address], [place], [address], 4 08:30:01 CBC w/ auto diff 2023 024 [facility], [address], [place], [address], 4 18:28:26 CMP, serum or plasma 2023 024 [facility], [address], [place], [address], 4 18:46:16 vitamin B12 + folate, serum or blood [address]23 [email or web address] [place] [address] Lab, [address], [place], [address], 4 08:30:00 mma (methylmalo orestes acid), serum 2023 [email or web address] [place] [address] Lab, [address], [place], [address], 4 09:08:50 copper, serum or plasma 2023 [email or web address] [place] [address] Lab, [address], [place], [address], 4 08:30:00 zinc, serum or plasma 2023 [email or web address] [place] [address] Lab, [address], [place], [address], 4 08:30:00 TSH + free T4, serum 2023 [email or web address] [place] [address] Lab, [address], [place], [address], 4 08:30:01 ldh, serum or plasma 2023 024 JACOB [facility], [address], [place], [address], 4 18:46:20 iron + TIBC + ferritin, serum 2023 024 [email or web address] 6 [facility], [address], [place], [address], 4 08:30:01 iron saturation, serum 2023 024 [email or web address] 6 [facility], [address], [place], [address], 4 08:30:01 erythropoie tin (epo), serum 2023 024 [email or web address] 6 [facility], [address], [place], [address], 4 08:30:02 CMP, serum or plasma 2023 024 [email or web address] [facility] (Lab Registration) , [address] [place] [address] [place], [address], 4 07:45:53 CBC w/ auto diff 2023 024 [email or web address] [facility] (Lab Registration) , [address] [place] [address] [place], [address], 4 07:45:53 TSH + free T4, serum 2023 024 [email or web address] [facility] (Lab Registration) , [address] [place] [address] [place], [address], 4 07:45:53 vitamin B12 + folate, serum or blood 2023 024 [facility] (Lab Registration) , [address] [place] [address] [place], [address], 4 07:45:53 Referral None recorded. Procedures None recorded. Surgeries None recorded. Imaging None recorded. Medication Orders vitamin B complex tablet 2023 [facility], [address] [place] [address] [place], [id number], 4 14:26:09 diazepam 5 mg tablet 2023 [facility], [address] [place] [address] [place], [id number], 4 12:35:17 Patient TargetsNo targets recorded. Patient InstructionsNo instructions recorded. Reason for Referral None Reported. Results Created Date Observation Date Name Description Value Unit Range Abnormal Flag Note LastModifiedBy Organization Detail LastModifiedTime 01/20/2001/20/2024 CBC W/ AUTO DIFF WBC 4.06 K/uL 4.5-11 .5 low Not Available [facility] ([facility]) [address] [place] [address] [place], [address], 01/20/2024 17:00:44 01/20/20 24 01/20/2024 CBC W/ AUTO DIFF RBC 3.19 M/uL 4.0-5. 4 low Not Available [facility] ([facility]) [address] [place] [address] [place], [address], 01/20/2024 17:00:44 01/20/20 24 01/20/2024 CBC W/ AUTO DIFF HGB 10.6 g/dL 12.0-1 5.0 low Not Available [facility] ([facility]) [address] [place] [address] [place], [address], 01/20/2024 17:00:44 01/20/20 24 01/20/2024 CBC W/ AUTO DIFF HCT 31.9 % 35-49 low Not Available [facility] ([facility]) [address] [place] [address] [place], [address], 01/20/2024 17:00:44 01/20/20 24 01/20/2024 CBC W/ AUTO DIFF MCV 100.0 fL 80.0-1 00.0 Not Available [facility] ([facility]) [address] [place] [address] [place], [address], 01/20/2024 17:00:44 01/20/20 24 01/20/2024 CBC W/ AUTO DIFF MCH 33.2 pg 26.0-3 2.0 high Not Available [facility] ([facility]) [address] [place] [address] [place], [address], 01/20/2024 17:00:44 01/20/20 24 01/20/2024 CBC W/ AUTO DIFF MCHC 33.2 g/dL 32.0-3 6.0 Not Available [facility] ([facility]) [address] [place] [address] [place], [address], 01/20/2024 17:00:44 01/20/20 24 01/20/2024 CBC W/ AUTO DIFF RDW 12.6 % 11.5-1 4.5 Not Available [facility] ([facility]) [address] [place] [address] [place], [address], 01/20/2024 17:00:44 01/20/20 24 01/20/2024 CBC W/ AUTO DIFF platelet count 119 K/uL 142-42 4 low Not Available [facility] ([facility]) [address] [place] [address] [place], [address], 01/20/2024 17:00:44 01/20/20 24 01/20/2024 CBC W/ AUTO DIFF MPV 9.9 fL 6.8-10 .2 Not Available [facility] ([facility]) [address] [place] [address] [place], [address], 01/20/2024 17:00:44 01/20/20 24 01/20/2024 CBC W/ AUTO DIFF neutrophil % 68.7 % 50-70 Not Available [facility] ([facility]) [address] [place], [address], 01/20/2024 17:00:44 01/20/20 24 01/20/2024 CBC W/ AUTO DIFF lymphocyte % 19.7 % 18.0-4 2.0 Not Available [facility] ([facility]) [address] [place], [address], 01/20/2024 17:00:44 01/20/20 24 01/20/2024 CBC W/ AUTO DIFF monocyte % 8.9 % 2.0-11 .0 Not Available [facility] ([facility]) [address] [place] [address] [place], [address], 01/20/2024 17:00:44 01/20/20 24 01/20/2024 CBC W/ AUTO DIFF eosinophil % 1.7 % 1.0-3. 0 Not Available [facility] ([facility]) [address] [place], [address], 01/20/2024 17:00:44 01/20/20 24 01/20/2024 CBC W/ AUTO DIFF basophil % 0.5 % 0.0-2. 0 Not Available [facility] ([facility]) [address] [place], [address], 01/20/2024 17:00:44 01/20/20 24 01/20/2024 CBC W/ AUTO DIFF immature granulocytes % 0.5 % 0.0-0. 8 Not Available [facility] ([facility]) [address] [place] [address] [place], [address], 01/20/2024 17:00:44 01/20/20 24 01/20/2024 CBC W/ AUTO DIFF nucleated red blood cells % 0.0 % Not Available [facility] ([facility]) [address] [place] [address] [place], [address], 01/20/2024 17:00:44 01/20/20 24 01/20/2024 CBC W/ AUTO DIFF neutrophil # 2.79 K/uL Not Available [facility] ([facility]) [address] [place], [address], 01/20/2024 17:00:44 01/20/20 24 01/20/2024 CBC W/ AUTO DIFF lymphocyte # 0.80 K/uL Not Available [facility] ([facility]) [address] [place], [address], 01/20/2024 17:00:44 01/20/20 24 01/20/2024 CBC W/ AUTO DIFF monocyte # 0.36 K/uL Not Available [facility] ([facility]) [address] [place], [address], 01/20/2024 17:00:44 01/20/20 24 01/20/2024 CBC W/ AUTO DIFF eosinophil # 0.07 K/uL Not Available [facility] ([facility]) [address] [place], [address], 01/20/2024 17:00:44 01/20/20 24 01/20/2024 CBC W/ AUTO DIFF basophil # 0.02 K/uL Not Available [facility] ([facility]) [address] [place], [address], 01/20/2024 17:00:44 01/20/20 24 01/20/2024 CBC W/ AUTO DIFF immature gramulocytes # 0.02 K/uL Not Available [facility] ([facility]) [address] [place] [address] [place], [address], 01/20/2024 17:00:44 01/20/20 24 01/20/2024 CBC W/ AUTO DIFF nucleated red blood cells # 0.00 k/uL Not Available [facility] ([facility]) [address] [place] [address] [place], [address], 01/20/2024 17:00:44 01/20/20 24 01/20/2024 CBC W/ AUTO DIFF manual differential NO Not Available [facility] ([facility]) [address] [place] [address] [place], [address], 01/20/2024 17:00:44 01/20/20 24 01/20/2024 CBC W/ AUTO DIFF note Unles s other rosa noted testi ng perfo [facility]med at: [facility] [address] [facility] [place] [address] Rogelio caballero MD Not Available [facility] ([facility]) [address] [place] [address] [place], [address], 01/20/2024 17:00:44 01/20/20 24 01/20/2024 COMP METAB OLIC PANEL sodium 133 mmol/ L 137-14 7 low Not Available [facility] ([facility]) [address] [place] [address] [place], [address], 01/20/2024 17:40:07 01/20/20 24 01/20/2024 COMP METAB OLIC PANEL potassium 4.5 mmol/ L 3.5-5. 1 Not Available [facility] ([facility]) [address] [place] [address] [place], [address], 01/20/2024 17:40:07 01/20/20 24 01/20/2024 COMP METAB OLIC PANEL chloride 92 mmol/ L 98-110 low Not Available [facility] ([facility]) [address] [place] [address] [place], [address], 01/20/2024 17:40:07 01/20/20 24 01/20/2024 COMP METAB OLIC PANEL carbon dioxide 33 mmol/ L 21-30 high Not Available [facility] ([facility]) [address] [place] [address] [place], [address], 01/20/2024 17:40:07 01/20/20 24 01/20/2024 COMP METAB OLIC PANEL anion gap 8 mmol/ L 6-14 Not Available [facility] ([facility]) [address] [place], [address], 01/20/2024 17:40:07 01/20/20 24 01/20/2024 COMP METAB OLIC PANEL glucose 87 mg/dL 70-115 Not Available [facility] ([facility]) [address] [place], [address], 01/20/2024 17:40:07 01/20/20 24 01/20/2024 COMP METAB OLIC PANEL BUN 21 mg/dL 7-17 high Not Available [facility] ([facility]) [address] [place], [address], 01/20/2024 17:40:07 01/20/20 24 01/20/2024 COMP METAB OLIC PANEL creatinine 1.0 mg/dL 0.5-1. 5 Not Available [facility] ([facility]) [address] [place], [address], 01/20/2024 17:40:07 01/20/20 24 01/20/2024 COMP METAB OLIC PANEL BUN/creatini ne ratio 21 ratio 10-20 high Not Available [facility] ([facility]) [address] [place], [address], 01/20/2024 17:40:07 01/20/20 24 01/20/2024 COMP METAB OLIC PANEL glom filtration rate 62 mL/mi n >60- Not Available [facility] ([facility]) [address] [place] [address] [place], [address], 01/20/2024 17:40:07 01/20/20 24 01/20/2024 COMP METAB OLIC PANEL osmolality (calculated) 279 mosmo l/kg 275-30 1 OSMOL ALITY IS A CALCU LATIO N UTILI ZING THE SERUM /PLAS MA SODIU M, GLUCO SE AND UREA NITRO GEN (BUN) LEVEL S. FOR THE MOST ACCUR ATE RESUL T A MEASU RED SERUM OSMOL ALIVASYL IS NAVEED ANGELES. Not Available [facility] ([facility]) [address] [place] [address] [place], [address], 01/20/2024 17:40:07 01/20/20 24 01/20/2024 COMP METAB OLIC PANEL total protein 6.2 g/dL 6.2-8. 2 Not Available [facility] ([facility]) [address] [place] [address] [place], [address], 01/20/2024 17:40:07 01/20/20 24 01/20/2024 COMP METAB OLIC PANEL albumin 3.6 g/dL 3.5-5. 0 Not Available [facility] ([facility]) [address] [place] [address] [place], [address], 01/20/2024 17:40:07 01/20/20 24 01/20/2024 COMP METAB OLIC PANEL calcium 8.8 mg/dL 8.5-10 .8 Not Available [facility] ([facility]) [address] [place] [address] [place], [address], 01/20/2024 17:40:07 01/20/20 24 01/20/2024 COMP METAB OLIC PANEL bilirubin total 0.2 mg/dL 0.2-1. 3 Not Available [facility] ([facility]) [address] [place] [address] [place], [address], 01/20/2024 17:40:07 01/20/20 24 01/20/2024 COMP METAB OLIC PANEL AST (SGOT) 20 IU/L 14-36 Not Available [facility] ([facility]) [address] [place] [address] [place], [address], 01/20/2024 17:40:07 01/20/20 24 01/20/2024 COMP METAB OLIC PANEL ALT (SGPT) 8 IU/L 0-35 Pleas e note new refer ence inter elan for ALT. Due to a recen t manuf actur er sanchoo dolog y [place] e, the refer ence inter elan for ALT is lower effec tive September 06, 2020. Not Available [facility] ([facility]) [address] [place] [address] [place], [address], 01/20/2024 17:40:07 01/20/20 24 01/20/2024 COMP METAB OLIC PANEL alk phosphatase 117 IU/L 38-126 Not Available [facility] ([facility]) [address] [place] [address] [place], [address], 01/20/2024 17:40:07 01/20/20 24 01/20/2024 COMP METAB OLIC PANEL note Unles s other rosa noted testi ng perfo rmed at: [facility] [address] [place] [address] Rogelio caballero MD Not Available [facility] ([facility]) [address] [place] [address] [place], [address], 01/20/2024 17:40:07 01/20/20 24 01/20/2024 T4 FREE T4 free 1.07 NG/dL 0.78-2 .19 Not Available [facility] ([facility]) [address] [place] [address] [place], [address], 01/20/2024 17:54:34 01/20/20 24 01/20/2024 T4 FREE note Unles s other rosa noted testi ng perfo rmed at: [facility] [address] [place] [address] Rogelio caballero MD Not Available [facility] ([facility]) [address] [place] [address] [place], [address], 01/20/2024 17:54:34 01/20/20 24 01/20/2024 TSH thyroid stim hormone 0.86 uIU/m L 0.465- 4.68 Not Available [facility] ([facility]) [address] [place] [address] [place], [address], 01/20/2024 18:09:51 01/20/20 24 01/20/2024 TSH note Unles s other rosa noted testi ng perfo rmed at: [facility] [address] [place] [address] Rogelio caballero MD Not Available [facility] ([facility]) [address] [place] [address] [place], [address], 01/20/2024 18:09:51 01/20/20 24 01/20/2024 VITAM IN B12 vitamin B12 >1000 pg/mL 239-93 1 high Not Available [facility] ([facility]) [address] [place] [address] [place], [address], 01/20/2024 18:45:24 01/20/20 24 01/20/2024 VITAM IN B12 folate (folic acid), serum 2.8 NG/mL 2.76- Not Available [facility] ([facility]) [address] [place] [address] [place], [address], 01/20/2024 18:45:24 01/20/20 24 01/20/2024 VITAM IN B12 note Unles s other rosa noted testi ng perfo rmed at: [facility] [address] [place] [address] Rogelio caballero MD Not Available [facility] ([facility]) [address] [place] [address] [place], [address], 01/20/2024 18:45:24 03/28/20 24 03/28/2024 CBC AUTO W DIFF WBC 3.7 K/uL 4.0-10 .5 low Not Available [facility] [address], [place], [address], 03/28/2024 18:28:26 03/28/20 24 03/28/2024 CBC AUTO W DIFF RBC 3.1 M/mm3 4.2-6. 4 low Not Available [facility] ([facility]) [address] , [place], [address], 03/28/2024 18:28:26 03/28/20 24 03/28/2024 CBC AUTO W DIFF HGB 9.7 gm/dL 12.5-1 6.0 low Not Available [facility] ([facility]) [address] , [place], [address], 03/28/2024 18:28:26 03/28/20 24 03/28/2024 CBC AUTO W DIFF HCT 30.6 % 37.0-4 7.0 low Not Available [facility] ([facility]) [address] , [place], [address], 03/28/2024 18:28:26 03/28/20 24 03/28/2024 CBC AUTO W DIFF MCV 100.3 fL 78-100 high Not Available [facility] ([facility]) [address], [place], [address], 03/28/2024 18:28:26 03/28/20 24 03/28/2024 CBC AUTO W DIFF MCH 31.8 pg 27-31 high Not Available [facility] ([facility]) [address] , [place], [address], 03/28/2024 18:28:26 03/28/20 24 03/28/2024 CBC AUTO W DIFF MCHC 31.7 g/dL 32-36 low Not Available [facility] ([facility]) [address] [place], [address], 03/28/2024 18:28:26 03/28/20 24 03/28/2024 CBC AUTO W DIFF RDW 12.5 % 11.5-1 4.0 Not Available [facility] ([facility]) [address], [place], [address], 03/28/2024 18:28:26 03/28/20 24 03/28/2024 CBC AUTO W DIFF platelet count 134 K/uL 150-45 0 low Not Available [facility] ([facility]) [address] , [place], [address], 03/28/2024 18:28:26 03/28/20 24 03/28/2024 CBC AUTO W DIFF MPV 10.7 fL 6-9.5 high Not Available [facility] ([facility]) [address] , [place], [address], 03/28/2024 18:28:26 03/28/20 24 03/28/2024 CBC AUTO W DIFF neutrophil% 60.9 % 43-65 Not Available [facility]) [address], [place], [address], 03/28/2024 18:28:26 03/28/20 24 03/28/2024 CBC AUTO W DIFF lymphocyte% 25.1 % 20.5-4 5.5 Not Available [facility] ([facility]) [address] , [place], [address], 03/28/2024 18:28:26 03/28/20 24 03/28/2024 CBC AUTO W DIFF monocyte% 8.1 % 5.5-11 .7 Not Available [facility] ([facility]) [address] [place], [address], 03/28/2024 18:28:26 03/28/20 24 03/28/2024 CBC AUTO W DIFF eosinophil% 5.4 % 0.9-2. 9 high Not Available [facility] ([facility]) [address], [place], [address], 03/28/2024 18:28:26 03/28/20 24 03/28/2024 CBC AUTO W DIFF basophil% 0.5 % 0.2-1. 0 Not Available [facility] ([facility]) [address], [place], [address], 03/28/2024 18:28:26 03/28/20 24 03/28/2024 CBC AUTO W DIFF immature granulocytes % 0.0 % 0.0-0. 8 Not Available [facility] ([facility]) [address], [place], [address], 03/28/2024 18:28:26 03/28/20 24 03/28/2024 CBC AUTO W DIFF nucleated red blood cells % 0.0 % Not Available [facility] ([facility]) [address], [place], [address], 03/28/2024 18:28:26 03/28/20 24 03/28/2024 CBC AUTO W DIFF neutrophil# 2.3 K/uL 2.2-4. 8 Not Available [facility] ([facility]) [address], [place], [address], 03/28/2024 18:28:26 03/28/20 24 03/28/2024 CBC AUTO W DIFF lymphocyte# 0.9 cell/ mcL 1.3-2. 9 low Not Available [facility] ([facility]) [address], [place], [address], 03/28/2024 18:28:26 03/28/20 24 03/28/2024 CBC AUTO W DIFF monocyte# 0.3 cell/ mcL 0.3-0. 8 Not Available [facility] ([facility]) [address] [place], [address], 03/28/2024 18:28:26 03/28/20 24 03/28/2024 CBC AUTO W DIFF eosinophil# 0.2 cell/ mcL 0-0.2 Not Available [facility] ([facility]) [address] [place], [address], 03/28/2024 18:28:26 03/28/20 24 03/28/2024 CBC AUTO W DIFF basophil# 0.0 cell/ mcL 0.0-1. 0 Not Available [facility] ([facility]) [address], [place], [address], 03/28/2024 18:28:26 03/28/20 24 03/28/2024 CBC AUTO W DIFF immature gramulocytes # 0.00 K/uL Not Available [facility] ([facility]) [address], [place], [address], 03/28/2024 18:28:26 03/28/20 24 03/28/2024 CBC AUTO W DIFF nucleated red blood cells # 0.00 K/uL Not Available [facility] ([facility]) [address], [place], [address], 03/28/2024 18:28:26 03/28/20 24 03/28/2024 CBC AUTO W DIFF manual differential NO Not Available [facility] ([facility]) [address], [place], [address], 03/28/2024 18:28:26 03/28/20 24 03/28/2024 IRON STUDY (IRON /TIBC /%SAT ) iron 54 mcg/m L 40-180 Not Available [facility] ([facility]) [address], [place], [address], 03/28/2024 18:44:10 03/28/20 24 03/28/2024 IRON STUDY (IRON /TIBC /%SAT ) TIBC 196 mcg/d L 250-45 0 low Not Available [facility] ([facility]) [address], [place], [address], 03/28/2024 18:44:10 03/28/20 24 03/28/2024 IRON STUDY (IRON /TIBC /%SAT ) %sat 28 15-55 Not Available [facility] ([facility]) [address] , [place], [address], 03/28/2024 18:44:10 03/28/20 24 03/28/2024 COMP METAB OLIC PANEL sodium 137 mmol/ L 136-14 5 Not Available [facility] ([facility]) [address] , [place], [address], 03/28/2024 18:46:16 03/28/20 24 03/28/2024 COMP METAB OLIC PANEL potassium 5.2 mmol/ L 3.6-5. 0 high Not Available [facility] ([facility]) [address] , [place], [address], 03/28/2024 18:46:16 03/28/20 24 03/28/2024 COMP METAB OLIC PANEL chloride 100 mmol/ L 98-107 Not Available [facility] ([facility]) [address] , [place], [address], 03/28/2024 18:46:16 03/28/20 24 03/28/2024 COMP METAB OLIC PANEL carbon dioxide 31.5 mmol/ L 21.0-3 2.0 Not Available [facility] ([facility]) [address] , [place], [address], 03/28/2024 18:46:16 03/28/20 24 03/28/2024 COMP METAB OLIC PANEL anion gap 10.7 Not Available [facility] [address] , [place], [address], 03/28/2024 18:46:16 03/28/20 24 03/28/2024 COMP METAB OLIC PANEL glucose 99 mg/dL 70-120 Not Available [facility] ([facility]) [address] [place], [address], 03/28/2024 18:46:16 03/28/20 24 03/28/2024 COMP METAB OLIC PANEL BUN 14 mg/dL 7-18 Not Available [facility] ([facility]) [address], [place], [address], 03/28/2024 18:46:16 03/28/20 24 03/28/2024 COMP METAB OLIC PANEL creatinine 1.0 mg/dL 0.6-1. 3 Not Available [facility] ([facility]) [address], [place], [address], 03/28/2024 18:46:16 03/28/20 24 03/28/2024 COMP METAB OLIC PANEL glomerular filtration rate 62 mlper min 60- GFR LIMIT ATION : The eGFR equat ion CKD-E PI 2020 is not appli cable for pedia tric patie nts or great er than 90 years of age. The follo wing condi tions may alter the GFR resul t: extre mes in body size, malnu triti on or obesi ty, skele osvaldo muscl e disea se, parap legia or quadr ipleg ia, veget tera diet or rapid ly lockwood ing kiney funct ion. Not Available [facility] ([facility]) [address], [place], [address], 03/28/2024 18:46:16 03/28/20 24 03/28/2024 COMP METAB OLIC PANEL total protein 6.8 g/dL 6.4-8. 2 Not Available [facility] ([facility]) [address], [place], [address], 03/28/2024 18:46:16 03/28/20 24 03/28/2024 COMP METAB OLIC PANEL albumin 3.1 g/dL 3.4-5. 0 low Not Available [facility] ([facility]) [address], [place], [address], 03/28/2024 18:46:16 11/11/03/28/2024 COMP METAB OLIC PANEL globulin 3.7 Not Available [facility] ([facility]) [address], [place], [address], 03/28/2024 18:46:16 03/28/20 24 03/28/2024 COMP METAB OLIC PANEL alb/glob ratio 0.8 0.7-2 Not Available [facility] ([facility]) [address] , [place], [address], 03/28/2024 18:46:16 03/28/20 24 03/28/2024 COMP METAB OLIC PANEL calcium 9.3 mg/dL 8.5-10 .5 Not Available [facility] ([facility]) [address] , [place], [address], 03/28/2024 18:46:16 03/28/20 24 03/28/2024 COMP METAB OLIC PANEL bilirubin total 0.30 mg/dL 0.10-1 .00 Not Available [facility] ([facility]) [address] , [place], [address], 03/28/2024 18:46:16 03/28/20 24 03/28/2024 COMP METAB OLIC PANEL AST (SGOT) 14 U/L 0-37 Not Available [facility] ([facility]) [address] , [place], [address], 03/28/2024 18:46:16 03/28/20 24 03/28/2024 COMP METAB OLIC PANEL ALT (SGPT) 14 U/L 0-65 Not Available [facility] ([facility]) [address] , [place], [address], 03/28/2024 18:46:16 03/28/20 24 03/28/2024 COMP METAB OLIC PANEL alk phosphatase 76 U/L 46-116 Not Available [facility] ([facility]) [address] , [place], [address], 03/28/2024 18:46:16 03/28/20 24 03/28/2024 THYRO ID STIMU LATIN G HORMO NE thyroid stim hormone 0.94 mIU/L 0.36-3 .74 Not Available [facility] ([facility]) [address], [place], [address], 03/28/2024 18:46:18 03/28/20 24 03/28/2024 T4 FREE T4 free 0.86 NG/dL 0.76-1 .46 Not Available [facility] ([facility]) [address], [place], [address], 03/28/2024 18:46:19 03/28/20 24 03/28/2024 LDH (LD) LDH 136 U/L 0-190 Not Available [facility] ([facility]) [address] [facility], [place], [address], 03/28/2024 18:46:20 03/28/20 24 03/28/2024 SAROJ TIN ferritin, serum 118 NG/mL 3-244 Not Available [facility] ([facility]) [address] [facility], [place], [address], 03/28/2024 18:46:22 03/28/20 24 03/28/2024 VITAM IN B12 vitamin B12 1304 pg/mL 193-98 6 high *Note : Refer shannon Loo. New Test Metho d in use. Not Available [facility] ([facility]) [address], [place], [address], 03/28/2024 19:08:36 03/28/20 24 03/28/2024 VITAM IN B12 folate (folic acid), serum 4.5 NG/mL 8.6-58 .9 low *Note : Refer shannon Loo. New Test Metho d in use. Not Available [facility] ([facility]) [address] [facility], [place], [address], 03/28/2024 19:08:36 03/28/20 24 03/29/2024 VITAM IN D, 25-HY DROXY vitamin D, 25-hydroxy 35.4 NG/mL 30.0-1 00.0 Not Available [facility] ([facility]) [address], [place], [address], 03/29/2024 01:53:12 03/28/20 24 03/30/2024 PTH, INTAC T PTH, intact 30 pg/mL 15-65 Perfo rmed at: - [facility] [address] [place] [address] 12[address] Lab Direc tor: Sushil euceda PhD, Phone : [phone] Not Available [facility] ([facility]) [address], [place], [address], 03/30/2024 13:13:10 03/28/20 24 03/31/2024 IMMUN OFIXA TION, SERUM (CHE) IgA 208 mg/dL 87-352 Not Available [facility] ([facility]) [address] [facility], [place], [address], 04/01/2024 01:00:52 03/28/20 24 03/31/2024 IMMUN OFIXA TION, SERUM (CHE) IgM 70 mg/dL 26-217 Perfo rmed at: - [facility] [address] [place] [address] Lab Direc tor: Sushil euceda PhD, Phone : [phone] Not Available [facility] ([facility]) [address] [place], [address], 04/01/2024 01:00:52 03/28/20 24 03/31/2024 IMMUN OFIXA TION, SERUM (CHE) IgG 1113 mg/dL 586-16 02 Not Available [facility] ([facility]) [address] [place], [address], 04/01/2024 01:00:52 03/28/20 24 03/31/2024 IMMUN OFIXA TION, SERUM (CHE) immunofixati on, serum (che) Commen t No monoc lonal ity detec conchis. Not Available [facility] ([facility]) [address] [facility], [place], [address], 04/01/2024 01:00:52 03/28/20 24 03/31/2024 ERYTH ROPOI ETIN QUANT erythropoiet in, serum 25.1 mIU/m L 2.6-18 .5 high Beckm an Coult er UniCe l DxI 800 Immun oassa y Syste m . Value s obtai romulo with diffe rent assay metho ds or kits canno t be used inter [facility] . Resul ts canno t be inter prete d as absol [place] evide nce of the prese nce or absen ce of [facility] . Perfo rmed at: - [facility] [address] [place] [address] Lab Direc tor: Sushil euceda PhD, Phone : [phone] Not Available [facility] ([facility]) [address] [facility], [place], [address], 04/01/2024 01:00:53 03/28/20 24 04/02/2024 ZINC BLOOD zinc, plasma or serum 65 ug/dL 44-115 Speci men Comme nt: Test( s) 62461 0-Zin c, Plasm a or Serum Speci men Comme nt: was devel oped and its perfo rmanc e lisbet cte risti cs Speci men Comme nt: deter mined by [facility]. It has not been ashia ared or appro kaya Speci men Comme nt: by the Food and Drug Admin istra tion. Detec tion Limit = 5 Perfo rmed at: - [facility] Kareem herrera [address] [place] [address] Lab Direc tor: Christiana glez MD, Phone : [phone] Not Available [facility] ([facility]) [address] [facility], [place], [address], 04/02/2024 06:15:14 03/28/20 24 04/02/2024 COPPE R BLOOD copper, serum plasma 84 ug/dL 80-158 Speci men Comme nt: Test( s) 53657 6-Buttonhole Facer per, Serum or Plasm a Speci men Comme nt: was devel oped and its perfo rmanc e lisbet cte risti cs Speci men Comme nt: deter mined by [facility]. It has not been ashia ared or appro kaya Speci men Comme nt: by the Food and Drug Admin istra tion. Detec tion Limit = 5 Perfo rmed at: - [facility] Kareem [address] [address] Lab Direc tor: Christiana glez MD, Phone : [phone] Not Available [facility] ([facility]) [address] [facility], [place], [address], 04/02/2024 06:15:14 03/28/20 24 04/06/2024 METHY LMALO ORESTES ACID QUANT methylmaloni c acid, serum 362 nmol/ L 0-378 Speci men Comme nt: Test( s) 13666 7-Met hylma lonic Acid, Serum Speci men Comme nt: was devel oped and its perfo rmanc e lisbet cte risti cs Speci men Comme nt: deter mined by [facility]. It has not been ashia ared or appro kaya Speci men Comme nt: by the Food and Drug Admin istra tion. Perfo rmed at: [facility] Kareem herrera [address] [place] [address] Lab Direc tor: Christiana glez MD, Phone : [phone] Not Available [facility] ([facility]) [address] [facility], [place], [address], 04/06/2024 09:15:14 05/06/20 05/06/2024 CBC AUTO W DIFF WBC 3.4 K/uL 4.0-10 .5 low Not Available [facility] ([facility]) [address] , [place], [address], 05/06/2024 15:17:45 05/06/20 24 05/06/2024 CBC AUTO W DIFF RBC 3.4 M/mm3 4.2-6. 4 low Not Available [facility] ([facility]) [address] , [place], [address], 05/06/2024 15:17:45 05/06/20 24 05/06/2024 CBC AUTO W DIFF HGB 10.5 gm/dL 12.5-1 6.0 low Not Available [facility] ([facility]) [address], [place], [address], 05/06/2024 15:17:45 05/06/20 24 05/06/2024 CBC AUTO W DIFF HCT 32.7 % 37.0-4 7.0 low Not Available [facility] ([facility]) [address], [place], [address], 05/06/2024 15:17:45 05/06/20 24 05/06/2024 CBC AUTO W DIFF MCV 97.6 fL 78-100 Not Available [facility] ([facility]) [address] , [place], [address], 05/06/2024 15:17:45 05/06/20 24 05/06/2024 CBC AUTO W DIFF MCH 31.3 pg 27-31 high Not Available [facility] ([facility]) [address] [place], [address], 05/06/2024 15:17:45 05/06/20 24 05/06/2024 CBC AUTO W DIFF MCHC 32.1 g/dL 32-36 Not Available [facility] ([facility]) [address] [place], [address], 05/06/2024 15:17:45 05/06/20 24 05/06/2024 CBC AUTO W DIFF RDW 12.7 % 11.5-1 4.0 Not Available [facility] ([facility]) [address], [place], [address], 05/06/2024 15:17:45 05/06/20 24 05/06/2024 CBC AUTO W DIFF platelet count 129 K/uL 150-45 0 low Not Available [facility] ([facility]) [address], [place], [address], 05/06/2024 15:17:45 05/06/20 24 05/06/2024 CBC AUTO W DIFF MPV 10.3 fL 6-9.5 high Not Available [facility] ([facility]) [address], [place], [address], 05/06/2024 15:17:45 05/06/20 24 05/06/2024 CBC AUTO W DIFF neutrophil% 62.7 % 43-65 Not Available [facility] ([facility]) [address], [place], [address], 05/06/2024 15:17:45 05/06/20 24 05/06/2024 CBC AUTO W DIFF lymphocyte% 23.2 % 20.5-4 5.5 Not Available [facility] ([facility]) [address] [place], [address], 05/06/2024 15:17:45 05/06/20 24 05/06/2024 CBC AUTO W DIFF monocyte% 8.5 % 5.5-11 .7 Not Available [facility] ([facility]) [address], [place], [address], 05/06/2024 15:17:45 05/06/20 24 05/06/2024 CBC AUTO W DIFF eosinophil% 4.7 % 0.9-2. 9 high Not Available [facility] ([facility]) [address] [place], [address], 05/06/2024 15:17:45 05/06/20 24 05/06/2024 CBC AUTO W DIFF basophil% 0.6 % 0.2-1. 0 Not Available [facility] ([facility]) [address] [place], [address], 05/06/2024 15:17:45 05/06/20 24 05/06/2024 CBC AUTO W DIFF immature granulocytes % 0.3 % 0.0-0. 8 Not Available [facility] ([facility]) [address] [place], [address], 05/06/2024 15:17:45 05/06/20 24 05/06/2024 CBC AUTO W DIFF nucleated red blood cells % 0.0 % Not Available [facility] ([facility]) [address] [facility], [place], [address], 05/06/2024 15:17:45 05/06/20 24 05/06/2024 CBC AUTO W DIFF neutrophil# 2.1 K/uL 2.2-4. 8 low Not Available [facility] ([facility]) [address] [place], [address], 05/06/2024 15:17:45 05/06/20 24 05/06/2024 CBC AUTO W DIFF lymphocyte# 0.8 cell/ mcL 1.3-2. 9 low Not Available [facility] ([facility]) [address] [place], [address], 05/06/2024 15:17:45 05/06/20 24 05/06/2024 CBC AUTO W DIFF monocyte# 0.3 cell/ mcL 0.3-0. 8 Not Available [facility] ([facility]) [address] [place], [address], 05/06/2024 15:17:45 05/06/20 24 05/06/2024 CBC AUTO W DIFF eosinophil# 0.2 cell/ mcL 0-0.2 Not Available [facility] ([facility]) [address], [place], [address], 05/06/2024 15:17:45 05/06/20 24 05/06/2024 CBC AUTO W DIFF basophil# 0.0 cell/ mcL 0.0-1. 0 Not Available [facility] ([facility]) [address] , [place], [address], 05/06/2024 15:17:45 05/06/20 24 05/06/2024 CBC AUTO W DIFF immature gramulocytes # 0.01 K/uL Not Available [facility] ([facility]) [address], [place], [address], 05/06/2024 15:17:45 05/06/20 24 05/06/2024 CBC AUTO W DIFF nucleated red blood cells # 0.00 K/uL Not Available [facility] ([facility]) [address] , [place], [address], 05/06/2024 15:17:45 05/06/20 24 05/06/2024 CBC AUTO W DIFF manual differential NO Not Available [facility] ([facility]) [address] , [place], [address], 05/06/2024 15:17:45 06/22/19 25 06/22/2024 CBC AUTO W DIFF WBC 4.6 K/uL 4.0-10 .5 Not Available [facility] ([facility]) [address] , [place], [address], 06/22/2024 17:49:41 06/22/19 25 06/22/2024 CBC AUTO W DIFF RBC 3.6 M/mm3 4.2-6. 4 low Not Available [facility] ([facility]) [address], [place], [address], 06/22/2024 17:49:41 06/22/19 25 06/22/2024 CBC AUTO W DIFF HGB 11.2 gm/dL 12.5-1 6.0 low Not Available [facility] ([facility]) [address], [place], [address], 06/22/2024 17:49:41 06/22/19 25 06/22/2024 CBC AUTO W DIFF HCT 34.2 % 37.0-4 7.0 low Not Available [facility] ([facility]) [address], [place], [address], 06/22/2024 17:49:41 06/22/19 25 06/22/2024 CBC AUTO W DIFF MCV 95.8 fL 78-100 Not Available [facility] ([facility]) [address], [place], [address], 06/22/2024 17:49:41 06/22/19 25 06/22/2024 CBC AUTO W DIFF MCH 31.4 pg 27-31 high Not Available [facility] ([facility]) [address], [place], [address], 06/22/2024 17:49:41 06/22/19 25 06/22/2024 CBC AUTO W DIFF MCHC 32.7 g/dL 32-36 Not Available [facility] ([facility]) [address], [place], [address], 06/22/2024 17:49:41 06/22/19 25 06/22/2024 CBC AUTO W DIFF RDW 13.9 % 11.5-1 4.0 Not Available [facility] ([facility]) [address] [place], [address], 06/22/2024 17:49:41 06/22/19 25 06/22/2024 CBC AUTO W DIFF platelet count 158 K/uL 150-45 0 Not Available [facility] ([facility]) [address], [place], [address], 06/22/2024 17:49:41 06/22/19 25 06/22/2024 CBC AUTO W DIFF MPV 9.8 fL 6-9.5 high Not Available [facility] ([facility]) [address], [place], [address], 06/22/2024 17:49:41 06/22/19 25 06/22/2024 CBC AUTO W DIFF neutrophil% 55.1 % 43-65 Not Available [facility] ([facility]) [address] [facility], [place], [address], 06/22/2024 17:49:41 06/22/19 25 06/22/2024 CBC AUTO W DIFF lymphocyte% 29.4 % 20.5-4 5.5 Not Available [facility] ([facility]) [address] [facility], [place], [address], 06/22/2024 17:49:41 06/22/19 25 06/22/2024 CBC AUTO W DIFF monocyte% 7.8 % 5.5-11 .7 Not Available [facility] ([facility]) [address] [place], [address], 06/22/2024 17:49:41 06/22/19 25 06/22/2024 CBC AUTO W DIFF eosinophil% 6.8 % 0.9-2. 9 high Not Available [facility] ([facility]) [address] [place], [address], 06/22/2024 17:49:41 06/22/19 25 06/22/2024 CBC AUTO W DIFF basophil% 0.7 % 0.2-1. 0 Not Available [facility] ([facility]) [address], [place], [address], 06/22/2024 17:49:41 06/22/19 25 06/22/2024 CBC AUTO W DIFF immature granulocytes % 0.2 % 0.0-0. 8 Not Available [facility] ([facility]) [address], [place], [address], 06/22/2024 17:49:41 06/22/19 25 06/22/2024 CBC AUTO W DIFF nucleated red blood cells % 0.0 % Not Available [facility] ([facility]) [address] [facility], [place], [address], 06/22/2024 17:49:41 06/22/19 25 06/22/2024 CBC AUTO W DIFF neutrophil# 2.5 K/uL 2.2-4. 8 Not Available [facility] ([facility]) [address] [facility], [place], [address], 06/22/2024 17:49:41 06/22/19 25 06/22/2024 CBC AUTO W DIFF lymphocyte# 1.4 cell/ mcL 1.3-2. 9 Not Available [facility] ([facility]) [address] [facility], [place], [address], 06/22/2024 17:49:41 06/22/19 25 06/22/2024 CBC AUTO W DIFF monocyte# 0.4 cell/ mcL 0.3-0. 8 Not Available [facility] ([facility]) [address] [facility], [place], [address], 06/22/2024 17:49:41 06/22/19 25 06/22/2024 CBC AUTO W DIFF eosinophil# 0.3 cell/ mcL 0-0.2 high Not Available [facility] ([facility]) [address] [place], [address], 06/22/2024 17:49:41 06/22/19 25 06/22/2024 CBC AUTO W DIFF basophil# 0.0 cell/ mcL 0.0-1. 0 Not Available [facility] ([facility]) [address] [place], [address], 06/22/2024 17:49:41 06/22/19 25 06/22/2024 CBC AUTO W DIFF immature gramulocytes # 0.01 K/uL Not Available [facility] ([facility]) [address] [place], [address], 06/22/2024 17:49:41 06/22/19 25 06/22/2024 CBC AUTO W DIFF nucleated red blood cells # 0.00 K/uL Not Available [facility] ([facility]) [address] [facility], [place], [address], 06/22/2024 17:49:41 06/22/19 25 06/22/2024 CBC AUTO W DIFF manual differential NO Not Available [facility] ([facility]) [address] [place], [address], 06/22/2024 17:49:41 06/22/19 25 06/22/2024 IRON STUDY (IRON /TIBC /%SAT ) iron 44 mcg/m L 40-180 Not Available [facility] ([facility]) [address] [place], [address], 06/22/2024 18:43:25 06/22/19 25 06/22/2024 IRON STUDY (IRON /TIBC /%SAT ) TIBC 199 mcg/d L 250-45 0 low Not Available [facility] ([facility]) [address] [place], [address], 06/22/2024 18:43:25 06/22/19 25 06/22/2024 IRON STUDY (IRON /TIBC /%SAT ) %sat 22 15-55 Not Available [facility] ([facility]) [address] , [place], [address], 06/22/2024 18:43:25 06/22/19 25 06/22/2024 COMP METAB OLIC PANEL sodium 139 mmol/ L 136-14 5 Not Available [facility] ([facility]) [address] , [place], [address], 06/22/2024 18:56:02 06/22/19 25 06/22/2024 COMP METAB OLIC PANEL potassium 4.8 mmol/ L 3.6-5. 0 Not Available [facility] ([facility]) [address] , [place], [address], 06/22/2024 18:56:02 06/22/19 25 06/22/2024 COMP METAB OLIC PANEL chloride 103 mmol/ L 98-107 Not Available [facility] ([facility]) [address] , [place], [address], 06/22/2024 18:56:02 06/22/19 25 06/22/2024 COMP METAB OLIC PANEL carbon dioxide 28.1 mmol/ L 21.0-3 2.0 Not Available [facility] ([facility]) [address] , [place], [address], 06/22/2024 18:56:02 06/22/19 25 06/22/2024 COMP METAB OLIC PANEL anion gap 12.7 Not Available [facility] ([facility]) [address] , [place], [address], 06/22/2024 18:56:02 06/22/19 25 06/22/2024 COMP METAB OLIC PANEL glucose 77 mg/dL 70-120 Not Available [facility] ([facility]) [address] , [place], [address], 06/22/2024 18:56:02 06/22/19 25 06/22/2024 COMP METAB OLIC PANEL BUN 22 mg/dL 7-18 high Not Available [facility] ([facility]) [address], [place], [address], 06/22/2024 18:56:02 06/22/19 25 06/22/2024 COMP METAB OLIC PANEL creatinine 1.0 mg/dL 0.6-1. 3 Not Available [facility] ([facility]) [address] , [place], [address], 06/22/2024 18:56:02 06/22/19 25 06/22/2024 COMP METAB OLIC PANEL glomerular filtration rate 61 mlper min 60- GFR LIMIT ATION : The eGFR equat ion CKD-E PI 2020 is not appli cable for pedia tric patie nts or great er than 90 years of age. The follo wing condi tions may alter the GFR resul t: extre mes in body size, malnu triti on or obesi ty, skele osvaldo muscl e disea se, parap legia or quadr ipleg ia, veget tera diet or rapid ly lockwood ing kiney funct ion. Not Available [facility] ([facility]) [address] , [place], [address], 06/22/2024 18:56:02 06/22/19 25 06/22/2024 COMP METAB OLIC PANEL total protein 6.8 g/dL 6.4-8. 2 Not Available [facility] ([facility]) [address] , [place], [address], 06/22/2024 18:56:02 06/22/19 25 06/22/2024 COMP METAB OLIC PANEL albumin 3.3 g/dL 3.4-5. 0 low Not Available [facility] ([facility]) [address] , [place], [address], 06/22/2024 18:56:02 06/22/19 25 06/22/2024 COMP METAB OLIC PANEL globulin 3.5 Not Available [facility] ([facility]) [address], [place], [address], 06/22/2024 18:56:02 06/22/19 25 06/22/2024 COMP METAB OLIC PANEL alb/glob ratio 0.9 0.7-2 Not Available [facility] ([facility]) [address], [place], [address], 06/22/2024 18:56:02 06/22/19 25 06/22/2024 COMP METAB OLIC PANEL calcium 10.2 mg/dL 8.5-10 .5 Not Available [facility] ([facility]) [address], [place], [address], 06/22/2024 18:56:02 06/22/19 25 06/22/2024 COMP METAB OLIC PANEL bilirubin total 0.30 mg/dL 0.10-1 .00 Not Available [facility] ([facility]) [address], [place], [address], 06/22/2024 18:56:02 06/22/19 25 06/22/2024 COMP METAB OLIC PANEL AST (SGOT) 15 U/L 0-37 Not Available [facility] ([facility]) [address], [place], [address], 06/22/2024 18:56:02 06/22/19 25 06/22/2024 COMP METAB OLIC PANEL ALT (SGPT) 15 U/L 0-65 Not Available [facility] ([facility]) [address], [place], [address], 06/22/2024 18:56:02 06/22/19 25 06/22/2024 COMP METAB OLIC PANEL alk phosphatase 70 U/L 46-116 Not Available [facility] ([facility]) [address], [place], [address], 06/22/2024 18:56:02 06/22/19 25 06/22/2024 SAROJ TIN ferritin, serum 125 NG/mL 3-244 Not Available [facility] ([facility]) [address] [facility], [place], [address], 06/22/2024 18:56:04 06/22/19 25 06/22/2024 VITAM IN B12 vitamin B12 1807 pg/mL 193-98 6 high *Note : Refer sissye Nick elan Micky grant. New Test Metho d in use. Not Available [facility] ([facility]) [address] [facility], [place], [address], 06/22/2024 19:18:18 06/22/19 25 06/22/2024 VITAM IN B12 folate (folic acid), serum 105.6 NG/mL 8.6-58 .9 high *Note : Refer encJavier Lockwood e. New Test Metho d in use. Not Available [facility] ([facility]) [address], [place], [address], 06/22/2024 19:18:18 02/18/20 24 02/18/2024 MRI, brain , w/wo contr ast No observ ation record ed. [facility] [address], [place], [address], 02/19/2024 08:37:30 Result Notes None recorded. Procedures Surgical History Date Name Laterality Status Provider Name and Address Organization Details Recorded Time 10/13/19 25 Venipuncture cancelled Radhika Joseph PA-C [address], [place], [address], [facility] [place] - [place] & [place] 09/30/2024 10:48:50 06/22/19 25 Venipuncture completed Katie MORALES - [place] 06/22/2024 15:17:52 09/16/19 22 Most Recent Bone Density completed Katie ECKERT - [facility] - [place] & [place] 01/20/2024 15:25:10 12/17/19 21 completed Katie MORALES [facility] & [place] 01/20/2024 15:25:10 12/17/19 21 Date of Last Colonoscopy completed Katie MORALES [facility] [place] 01/20/2024 15:25:10 05/18/19 21 Other completed Katie MORALES [facility] [place] 01/20/2024 15:25:11 05/18/19 17 Other completed Katie MORALES [facility] [place] 01/20/2024 15:25:11 03/18/20 06 Date of Last Pap Smear completed Katie MORALES [facility] [place] 01/20/2024 15:25:10 05/18/18 98 Other completed Katie MORALES [facility] [place] 01/20/2024 15:25:11 Imaging Results None recorded. Procedure Notes None recorded. Medical Equipment None Reported. Allergies Allergen ID Allergen Name Allergen Category Reaction Reaction Severity Criticality Documentation Date Start Date Code Code System Note Provider Name and Address Organization Details Recorded Time 518335 Substance with sulfonami de structure and antibacte rial mechanism of action (substanc e) medicatio n Not available Not available Not available 03/28/2024 [id number] SNOMED [facility] [place] [facility] 14:[facility]:03 Medications Name Sig Start Date Stop Date Status Note LastModified by Organization Details LastModified Time primidone 50 mg tablet TAKE ONE TABLET BY MOUTH IN THE EVENING FOR 1 WEEK, THEN TAKE TWO TABLETS IN THE EVENING FOR 1 WEEK, THEN three tablets IN THE EVENING FOR 1 WEEK, THEN four tablets IN THE EVENING 01/19 completed Not Available Not Available Not Available clindamycin HCl 300 mg capsule TAKE ONE CAPSULE BY MOUTH THREE TIMES DAILY FOR 5 DAYS -- FINISH ALL MEDICINE -- 03/28 completed Not Available Not Available Not Available Vitamin C 500 mg tablet Take 1 tablet every day by oral route. active Not Available Not Available No t Available meloxicam 15 mg tablet TAKE ONE TABLET BY MOUTH EVERY DAY --TAKE WITH FOOD-- active Not Available Not Available No t Available ibuprofen 200 mg capsule Take 1 capsule every 6 hours by oral route. active Not Available Not Available No t Available metronidazo le 500 mg tablet TAKE ONE TABLET BY MOUTH THREE TIMES DAILY FOR 7 DAYS -- FINISH ALL MEDICINE -- --AVOID ANY PRODUCT(S ) CONTAININ G ALCOHOL WHILE TAKING THIS MEDICATIO N-- 04/25 completed Not Available Not Available Not Available omeprazole 40 mg capsule,del ayed release TAKE ONE CAPSULE BY MOUTH DAILY 30 MINUTES BEFORE morning meal active Not Available Not Available No t Available tramadol 50 mg tablet TAKE ONE TABLET BY MOUTH TWICE DAILY MAY CAUSE DROWSINES S active Not Available Not Available No t Available acetaminoph en 500 mg tablet TAKE ONE TABLET BY MOUTH THREE TIMES DAILY active Not Available Not Available No t Available calcium 600 mg (as calcium carbonate 1,500 mg) tablet Take 1 tablet every day by oral route. active Not Available Not Available No t Available magnesium oxide 400 mg (241.3 mg magnesium) tablet TAKE ONE TABLET BY MOUTH TWICE DAILY active Not Available Not Available No t Available Silvadene 1 % topical cream APPLY TOPICALLY TO THE AFFECTED AREA(S) EVERY DAY active Not Available Not Available No t Available sodium bicarbonate 650 mg tablet TAKE TWO TABLETS BY MOUTH EVERY DAY active Not Available Not Available No t Available colesevelam 625 mg tablet TAKE THREE TABLETS BY MOUTH TWICE DAILY with meals active Not Available Not Available No t Available doxycycline monohydrate 100 mg capsule TAKE ONE CAPSULE BY MOUTH EVERY TWELVE HOURS FOR 10 DAYS -- FINISH ALL MEDICINE -- 03/28 completed Not Available Not Available Not Available ropinirole 2 mg tablet Take by oral route for 90 days. active Not Available Not Available No t Available cephalexin 500 mg capsule TAKE ONE CAPSULE BY MOUTH TWICE DAILY FOR 10 DAYS -- FINISH ALL MEDICINE -- 01/19 completed Not Available Not Available Not Available hydrochloro thiazide 12.5 mg capsule TAKE ONE CAPSULE BY MOUTH EVERY MORNING active Not Available Not Available No t Available docusate sodium 100 mg capsule TAKE ONE CAPSULE BY MOUTH TWICE DAILY active Not Available Not Available No t Available vitamin B complex tablet one po daily 04/25 completed Not Available Not Available Not Available folic acid 1 mg tablet TAKE ONE TABLET BY MOUTH EVERY DAY active Not Available Not Available No t Available furosemide 20 mg tablet TAKE ONE TABLET BY MOUTH EVERY DAY active Not Available Not Available No t Available lorazepam 1 mg tablet TAKE ONE TABLET BY MOUTH 1 hour prior TO MRI THEN can REPEAT DOSE 15 minutes BEFORE MRI MAY CAUSE DROWSINES S 01/19 completed Not Available Not Available Not Available diazepam 5 mg tablet TAKE ONE TABLET BY MOUTH NEEDED FOR MRI. MAY REPEAT 1 TIME DIRECTED. active Not Available Not Available No t Available Vitamin B-12 1,000 mcg tablet Take 1 tablet every day by oral route. active Not Available Not Available No t Available duloxetine 60 mg capsule,del ayed release TAKE TWO CAPSULES BY MOUTH EVERY DAY active Not Available Not Available No t Available pregabalin 100 mg capsule TAKE ONE CAPSULE BY MOUTH FOUR TIMES DAILY NEEDED FOR PAIN MAY CAUSE DROWSINES S active Not Available Not Available No t Available Tylenol 06/22 completed Not Available Not Available Not Available Zegerid 20 mg-1.1 gram capsule Take 1 capsule every day by oral route. active Not Available Not Available No t Available FeroSul 325 mg (65 mg iron) tablet TAKE ONE TABLET BY MOUTH EVERY DAY active Not Available Not Available No t Available Breo Ellipta 200 mcg-25 mcg/dose powder for inhalation INHALE 1 PUFF BY MOUTH EVERY DAY active Not Available Not Available No t Available Vitals Date Recorded Body height Body temperature Oxygen saturation Oxygen saturation in Arterial blood by Pulse oximetry Heart rate Systolic blood pressure Diastolic blood pressure Provider Name and Address Organization Details Last Updated DateTime 5 157.48 cm 98.7 [degF] 89 % 89 % 89 /min 143 mm[Hg] 74 mm[Hg] Katie Alarcon [facility] [place] 5 15:14:27 Date Recorded Body temperature Oxygen saturation Oxygen saturation in Arterial blood by Pulse oximetry Heart rate Systolic blood pressure Diastolic blood pressure Provider Name and Address Organization Details Last Updated DateTime 4 97.8 [degF] 95 % 95 % 73 /min 110 mm[Hg] 70 mm[Hg] Katie Trejo [facility] [place] 4 15:38:18 Date Recorded Body height Body mass index (BMI) Body weight Body temperature Heart rate Oxygen saturation Oxygen saturation in Arterial blood by Pulse oximetry Systolic blood pressure Diastolic blood pressure Provider Name and Address Organization Details Last Updated DateTime 4 157.48 cm 31.6 kg/m2 35570.4 8 g 97.2 [degF] 76 /min 90 % 90 % 113 mm[Hg] 60 mm[Hg] Cherry MORALES [facility] [place] 4 14:35:44 Date Recorded Body height Body mass index (BMI) Body weight Body temperature Oxygen saturation Oxygen saturation in Arterial blood by Pulse oximetry Heart rate Systolic blood pressure Diastolic blood pressure Provider Name and Address Organization Details Last Updated DateTime 4 157.48 cm 31.6 kg/m2 24285.4 8 g 97.4 [degF] 91 % 91 % 71 /min 109 mm[Hg] 56 mm[Hg] Cherry MORALES [facility] [place] 4 14:29:12 Social History Question Answer Notes LastModified by Mahalo Details LastModified Time Tobacco Smoking Status Never Smoker Katie hull, TOMEKA MORALES [facility] [place] 01/20/2024 15:25:11 Do You Have An Advance Directive? No Information not available 01/20/2024 Are You Blind Or Do You Have Difficulty Seeing? Yes Information not available 01/20/2024 What Is Your Level Of Caffeine Consumption? Occasional [email or web address] Information not available 06/22/2024 What Was The Date Of Your Most Recent Tobacco Screening? 01/20/2024 Information not available 01/20/2024 Are You Passively Exposed To Smoke? No Information not available 01/20/2024 Has Tobacco Cessation Counseling Been Provided? No Information not available 06/22/2024 Sex: Unknown Functional Status Question Answer Note LastModified by [email or web address]. Details LastModified Time Do you use any illicit or recreational drugs? No [email or web address] Information not available 01/20/2024 Do you or have you ever used any other forms of tobacco or nicotine? No [email or web address] Information not available 06/22/2024 What is your level of alcohol consumption? 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 None [email or web address] Information not available 01/20/2024 Mental Status Question Answer Note LastModified by Organization D etails LastModified Time Do you feel stressed (tense, restless, nervous, or anxious, or unable to sleep at night)? [id number] [email or web address] Information not available 01/20/2024 Family History Relationship Description Onset Age of this Age Resolved Age Notes LastModified by Organization Details LastModified Time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
--- OUTSIDE RECORDS SUMMARY | 2024-11-10 14:15 | XMS_ITS | Referral Summary ---
Author Organization [facility] Address [address] [place] [address] Care Team Providers Care Wash And Greaser Name Role Phone Anni Candelaria Primary Care Provider [phone] Allergies Active Allergy Reactions Criticality Noted Date Comments Sulfa (Sulfonamide Antibiotics) 07/02/2023 Other reaction(s): NA-NAUSEA/VOMITING Medications colesevelam (WELCHOL) 625 mg tablet Take 3 tablets (1,875 mg total) by mouth 2 (two) times daily. 4 Active hydroCHLOROthia zide (MICROZIDE) 12.5 mg capsule Take 1 capsule (12.5 mg total) by mouth every morning. 4 Active omeprazole (PriLOSEC) 40 MG capsule Take 1 capsule (40 mg total) by mouth every morning. 4 Active pregabalin (LYRICA) 100 MG capsule Take 1 capsule (100 mg total) by mouth 4 (four) times daily. 4 Active rOPINIRole (REQUIP) 2 MG tablet Take 1 tablet (2 mg total) by mouth nightly. 4 Active DULoxetine (CYMBALTA) 60 MG capsule Take 1 capsule (60 mg total) by mouth daily. Active ferrous gluconate (FERGON) 324 MG tablet Take 1 tablet (324 mg total) by mouth daily with breakfast. Active meloxicam (MOBIC) 15 MG tablet Take 1 tablet (15 mg total) by mouth daily. Active calcium carbonate-vitam in D3 (OSCAL-D) 500 mg(1,250mg) -200 unit per tablet Take 1 tablet by mouth 2 (two) times daily with breakfast and dinner. Active xngmr-3-OTH-EAP -DPA-fish oil 1,050-1,200 mg Cap per capsule Take 1 capsule (1,050 mg total) by mouth daily. Active ginkgo/choline bitartrate (BRAINSTRONG MEMORY SUPPORT ORAL) Take by mouth. Activ e primidone (MYSOLINE) 50 MG tablet Take 1 tab at night for 1 week, then 2 tabs nightly for 1 week, then 3 tabs nightly for 1 week, then 4 tabs nightly. 120 tablet 11 4 Active LORazepam (ATIVAN) 1 MG tablet Take 1 tab an hour before MRI then can repeat 15 minutes before MRI. 2 tablet 4 Active Active Problems No known active problems Social History Tobacco Use Types Packs/Day Years Used Date Smoking Tobacco: Never Assessed Interpersonal Safety Answer Date Record ed Family or friends hurt you Not on file 08/03 Family or friends insult you Not on file Family or friends threaten you Not on file 0 08/04/2023 Family or friends scream or curse at you Not on file 08/04/2023 Family and Community Support Answer Fabian e Recorded Help with Day to Day Activities Not on file 08/04/2023 Feeling Lonely or Isolated Not on file 08/03 Educational Attainment Answer Date Lino rded Speak language other than Nepalese at home Not on file 08/04/2023 Want help with school or training Not on file 08/04/2023 Depression Answer Date Recorded PHQ-2 Risk Not on file 08/04/2023 Disabilities Answer Date Recorded Difficulty concentrating Not on file 024 Difficulty doing errands alone Not on file 0 08/04/2023 Substance Use Answer Date Recorded Used prescription meds for non-medical reasons N ot on file 08/04/2023 Used illegal drugs past 12 months Not on file 08/04/2023 Comments Unknown Sex and Gender Information Value Date Recorded Sex Assigned at Not on file Legal Sex Female 10:55 AM CDT Gender Identity Not on file Sexual Orientation Not on file Last Filed Vital Signs Vital Sign Reading Time Taken Comments Blood Pressure 120/69 10/06/2023 11:33 AM EDT Pulse 90 10/06/2023 11:33 AM EDT Temperature - - Respiratory Rate - - Oxygen Saturation 94% 10/06/2023 11:33 AM EDT Inhaled Oxygen Concentration - - Weight 79.8 kg (176 lb) 10/06/2023 11:33 AM EDT Height 157.5 cm (5' 2 ) 10/06/2023 11:33 AM EDT Body Mass Index 32.19 10/06/2023 11:33 AM EDT Plan of Treatment Not on file Insurance [employer] MEDICARE PPO Care Teams Wash And Greaser Relationship Specialty Start Date End Date Anni Candelaria PA [address] [place] [address] PCP - General Physician Rn Chemical Dependency 08/06/23
--- OUTSIDE RECORDS SUMMARY | 2024-11-10 14:15 | XMS_ITS | Clinical Summary ---
Author Organization [facility] Address [address] [place] [address] Care Team Providers Care Tombstone Erector Name Role Phone Anni Candelaria Primary Care Provider [phone] Allergies Active Allergy Reactions Criticality Noted Date [...] times daily with breakfast and dinner. Active cmaep-2-CDX-EAP -DPA-fish oil 1,050-1,200 mg Cap per capsule [...] Date Lino rded Speak language other than Tanzanian at home Not on file 08/04/2023 Want [...] 10/06/2023 11:33 AM EDT Plan of Treatment Health Maintenance Due Date Last Done Comments CT Colonography 1956 Colonoscopy 1956 Colorectal Cancer Screening 1956 DXA SCAN 1956 FOBT/FIT 1956 Fit-DNA (Cologuard) 1956 Sigmoidoscopy 1956 Depression Screening (12+) 1968 Tobacco Cessation Counseling and Screening (12+) 1968 Hepatitis C Screening 1974 DTAP/TDAP/TD VACCINES (1 - Tdap) 1975 Breast Cancer Screening 1996 Medicare Initial AWV [id number] 05/19/2022 COVID-19 VACCINE ( season) 2024 05/14/2023, 11/22/2020, 11/01/2020 Falls Risk Screening 05/18/2024 Influenza Vaccine (Season Ended) 2025 Respiratory Syncytial Virus (RSV) Adult or (1 - 1-dose 75+ series) 2031 Shingles Vaccine (Zoster) Completed 08/01/2021, 09/2020 Pneumococcal 50+ years Completed , 04/29/2018, 03/03/2017 Insurance [facility] MEDICARE PPO Care Teams Tombstone Erector Relationship Specialty Start Date End Date Anni Candelaria PA [address] [place] [address] PCP - General Physician Log Roller 08/06/23
--- OUTSIDE RECORDS SUMMARY | 2024-11-10 14:15 | XMS_ITS ---
Author Organization Unknown Vital Signs BpStanding BpSitting BpSupine Date Temperature HeartRate Weight Hei ght Spo2 Respiration Bmi HeadCircumference FieldCount TimeRecorded NeckCircumferen ce WaistCircumference Pulse 114/68 03/25 00:00 :00 97.5 71 172,12. 80 5,4 29.6 6 6 10/26/2024 14:30:00 110/68 03/18 00:00 :00 97.7 76 174,0 5,4 29.8 6 6 10/26/2024 14:15:00 126/76 03/04 00:00 :00 97.7 75 172,6.4 0 5,4 29.5 9 6 10/26/2024 14:00:00 100/70 02/03 00:00 :00 98.1 92 5,4 4 10/26/2024 16:15:00 120/70 01/05 00:00 :00 98.3 65 175,3.2 0 5,4 30.0 7 6 10/26/2024 14:30:00 116/72 12/22 00:00 :00 97.8 71 172,12. 80 5,4 29.6 6 6 10/26/2024 11:15:00
--- OUTSIDE RECORDS SUMMARY | 2024-11-10 14:16 | XMS_ITS | Clinical Summary ---
Author Organization Healthcare Address [address] [place] [address] Care Team Providers Care Bar Pointer Name Role Phone Nahum Ann MD Primary Care Provider [phone] Family History Medical History Relation Name Comments Asthma Father Diabetes Father Conversions - Other Mother chronic kidney disease Diabetes Mother Hyperlipidemia Mother Hypertension Mother Osteoporosis Mother Relation Name Status Comments Father Mother Social History Tobacco Use Types Packs/Day Years Used Date Smoking Tobacco: Never Alcohol Use Standard Drinks/Week Comments No 0 (1 standard drink = 0.6 oz pur e alcohol) Comments Unknown Sex and Gender Information Value Date Recorded Sex Assigned at Not on file Legal Sex Female 8:14 PM EDT Gender Identity Not on file Sexual Orientation Not on file Last Filed Vital Signs Vital Sign Reading Time Taken Comments Blood Pressure - - Pulse - - Temperature - - Respiratory Rate - - Oxygen Saturation - - Inhaled Oxygen Concentration - - Weight 88 kg (194 lb 0.1 oz) 10/08/2016 3:36 PM EDT Height 167.6 cm (5' 6 ) 08/27/2016 2:01 PM EDT Body Mass Index 31.31 08/27/2016 2:01 PM EDT Plan of Treatment Not on file Care Teams Bar Pointer Relationship Specialty Start Date End Date Nahum Ann MD [address] [place] [address] PCP - General 09/28/20
[2024-11-10 14:29] VITALS: BP 105/62; PULSE 86; RESP 14; O2SAT 91; BMI 35.6
--- NOTE | 2024-11-10 14:35 | A.OFFVIS_ITS ---
[facility] Disclaimer: The information contained in this section may have been updated after the patient was seen, as this information can be updated by other users. Medical History Anemia Arthritis Asthma Cervical (neck) region somatic dysfunction Chronic pain Degenerated intervertebral disc Depression Fibromyalgia History of renal dialysis History of TB (tuberculosis) Iron deficiency anemia Peptic ulcer disease Type 2 diabetes mellitus Surgical History History of cervical spinal surgery History of colonoscopy History of esophagogastroduodenoscopy (EGD) Family History Other Cancer Coronary artery disease Diabetes Hypertension Social History Smoking Status: Never smoker second hand exposure: No alcohol intake: never substance use type: denies use current occupational status: other Travel in the last 8 weeks?: None household members: none housing: house current occupational exposures/hazards: No caffeine: Yes PM Subjective & Objective Subjective Subjective:: Patient is a pleasant 69-year-old female who presents today for follow-up of her lumbar epidural steroid injection L4-L5 on 10/25/2024. Patient denies any new falls or injuries. She does state that she really did not notice long-lasting relief with this injection. She felt like it only lasted a couple of days. Patient rates her pain today an 8 out of 10. Patient states she still has the chronic low back pain that does radiate down her legs but does state that she has more pain starting at her knees and will go down. Patient states that it is constant and does interfere with her ability to perform activities of daily living such as cooking and cleaning. Patient has had knee injections in the past from our office and has gotten significant relief. Patient is interested in repeating injections as it has been sometime. Patient is currently managed with Dilaudid 10 mg/mL with a daily dose of 1.89 mg/day along with tramadol 50 mg twice a day for her chronic knee pain and Lyrica 100 mg 4 times a day. She denies any side effects from any of this medication. Her Don has been reviewed and is appropriate. Review of Systems: General: No recent weight changes, no fever, no sleep disturbances Respiratory: No cough, no shortness of air, no recurring pulmonary infections Cardiovascular/peripheral vascular: No chest pain, no palpitations, no edema, no shortness of breath Gastrointestinal: No new onset incontinence, normal bowel movements reported Genitourinary: No new onset incontinence Musculoskeletal: Bilateral knee pain Psychiatric: [Normal mood/affect] Neurological: [Denies weakness in extremities], [denies balance issues] Pain at rest (0-10 scale): 8 Objective Objective:: Physical Exam: General: Alert and oriented x3, no acute distress, pleasant and cooperative Lungs: Respirations even and unlabored, symmetrical chest expansion Eyes: PERRL Musculoskeletal: Flexion and extension of bilateral knees somewhat guarded secondary to pain, [antalgic gait noted] Neurological: Speech clear, no gross sensory deficit Has patient had previous pain injection?: No Conservative treatment options previously tried: Home exercise plan Length of treatment: Longer than 12 weeks Meds Home Medications and Allergies Home Medications ?Medication ?Instructions ?Recorded ?Confirmed ?Type duloxetine 60 mg capsule,delayed 120 mg PO DAILY Depre ssion 09/09/17 10/28/24 History release vit E 12 mg-vit E mix 50 2 each PO DIRECTED Supple ment 03/04/21 10/28/24 History mg-squalene 6.6 mg-phytosterol 3.3 mg capsule diclofenac sodium 20 2 pump topical BID Pain 12/1610/28/24 History mg/gram/actuation (2 %) topical soln metered-dose pump hydromorphone (PF) 1 mg/mL in 0.9% 0.5 mg intrathecal CONT CHRONIC 12/26/21 10/28/24 History sodium chloride intravenous syringe PAIN ropinirole 2 mg tablet 2 mg PO HSP PRN RESTLESS LEG S 03/20/22 10/28/24 History ascorbic acid (vitamin C) 500 mg 500 mg PO QID Supplem ent 04/29/22 10/28/24 History tablet (Vitamin C) ergocalciferol (vitamin D2) 1,250 50,000 unit PO WEEKL Y Supplement 04/29/22 10/28/24 History mcg (50,000 unit) capsule zinc sulfate 50 mg zinc (220 mg) 220 mg PO DAILY Suppl ement 04/29/22 10/28/24 History capsule pramipexole 1.5 mg tablet 1.5 mg PO HS . 08/05/2210/16 History ondansetron 4 mg disintegrating 4 mg PO Q8H PRN nausea and 12/13/22 10/28/24 Rx tablet vomiting 4 days #12 tabs meloxicam 15 mg tablet 15 mg PO DAILY 03/03/2310/16 History tramadol 50 mg tablet 50 mg PO BID #60 tabs 10/28/24 Rx pregabalin 100 mg capsule (Lyrica) 100 mg PO QID Pain #120 caps 10/17/24 10/28/24 Rx New Prescriptions to Start Prescriptions: Allergies Allergy/AdvReac Type Severity Reaction Status Date / Time Sulfa (Sulfonamide Allergy Unknown NA-NAUSEA/V Verified 08/26/24 14:06 Antibiotics) (SULFA OMITING (SULFONAMIDE ANTIBIOTICS)) Assessment and Plan *Assessment and plan (1) Bilateral knee pain: Status: Acute Qualifiers: Chronicity: chronic Qualified Code(s): M25.561 - Pain in right knee; M25.562 - Pain in left knee; G89.29 - Other chronic pain Category: Medical Code(s): M25.561 - Pain in right knee; M25.562 - Pain in left knee Plan Patient is experiencing worsening pain in her bilateral knees with limited range of motion. Patient was counseled that she may benefit from repeat intra- articular knee injections. Patient has had chronic knee pain for longer than 6 months. Patient did previously have her last set of bilateral knee intra- articular injections back in November 2023 that did provide 60% relief and did ease down the severity for at least 2 to 3 months. She was reviewed over with the risk and benefits of these injections and she would like to proceed forward with this plan of care. Patient has tried and failed conservative therapy including oral medications, heat and ice, topicals, previous physical therapy and continued at home stretching exercise for longer than 12 weeks that was physician guided. Patient will be scheduled for bilateral intra-articular knee injections. These will be done without fluoroscopic or ultrasound guidance. Patient has been instructed to contact the clinic with any concerns before the next appointment. Dr. Tsang has reviewed this note and agrees with this plan of care. This note was dictated using voice recognition software and make contain errors or omissions. All injections are used with Lidocaine, Bupivacaine and dexamethasone. Occasionally urine drug screen is needed to verify patient's compliance with our office pain contract. This is ordered based off specific treatments related to chronic pain with the potential to abuse certain medications.
== END 2024-11-10 23:59 | disposition home or self-care (01) ==
PROVIDERS: PCP Physician Assistant; Visit Provider Nurse Practitioner Family
DX: M25.561 Pain in right knee (principal); M25.562 Pain in left knee; G89.29 Other chronic pain; Z79.899 Other long term (current) drug therapy; Z79.891 Long term (current) use of opiate analgesic
CPT/HCPCS: 99212; G0463

== ENCOUNTER 2024-12-02 12:33 | Inpatient (IN) | payer MEDICARE, SELFPAY ==
--- OUTSIDE RECORDS SUMMARY | 2024-03-30 12:15 | XMS_ITS ---
Author Organization [facility] Address [address] [facility] [address] [place] [id number] Care Team Providers Care Nutrition Consultant Name Role Phone Anni Candelaria Primary Care [...] 03/04/2024 Active Silvadene 1 % 1 application Software Quality Automation Engineer ally Once a day 03/25/2024 Active Sodium [...] 90 days Active Vitamin D3 250 MCG (39939 UT) 1 cap(s) orally 3 times a [...] as needed Orally Twice a day Active [place] 3 1000 MG 1 capsule Orally Thr ee times a day; Duration: 30 day(s) Active Clindamycin HCl 300 MG 1 capsule Orally every 12 hrs; Duration: 7 day(s) Not-Taking Zegerid 20-1100 MG 1 capsule on an empt y stomach Orally Once a day; Duration: 30 day(s) Active Encounters Encounter Location Date Provider Diagnosis [facility] [address] [phone] 03/30/2024 Anni Candelaria Acute diarrhea R19.7 Assessments Encounter Date Diagnosis (ICD Code) Assessment Notes Treatment Notes Treatment Clinical Notes Section Notes 03/30/2024 Acute diarrhea (ICD-10 - R19.7) Plan Of Treatment No Information Progress Notes * CASEY NEGRONDOB:1955 (69 yo F)Acc No.[id number]:03/30/2024 Patient: CASEY TAPIA Provider: CYNTHIA Mitchell :1955 A ge:68 Y S ex:Female Date:03/30/2024 Address:[address] [place] [phone] Subjective: * Chief Complaints: * 1 . Stool sample. * Medical History: * Medications: T aking Zegerid 20-1100 MG Capsule 1 capsule on an empty stomach Orally Once a day , Taking Zinc 50 MG Tablet 1 tablet Orally Once a day , Taking Calcium 600 MG Tablet 1 tablet with meals Orally Twice a day , Taking [place] 3 1000 MG Capsule 1 capsule Orally [...] needed , Taking Vitamin D3 250 MCG (12539 UT) Capsule 1 cap(s) orally 3 times [...] * Electronic signature of CYNTHIA Moncada on 12/02/2024 at 12:54 PM EDT Sign off status: Pending * Provider: CYNTHIA Mitchell Date: 05/30/2023 Generated for Nigel corbin/Yue/Sherlyn on: 12/02/2024 12:54 PM EDT
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
--- OUTSIDE RECORDS SUMMARY | 2024-11-04 09:20 | XMS_ITS ---
Author Organization [facility] [address] [facility] [address] [place] [id number] Care Team Providers Care Rental Car Deliverer Name Role Phone Anni Candelaria Primary Care Provider Results Component Value Reference Range Notes Urinalysis - Inhouse Reviewed date:11/09/2024 12:07:11 PM Interpretation: Performing Lab: Notes/Report: Color/Clarity dark yellow Leuk 1+ Nitrite pos Urobili 3.2 Protein 1+ pH 5.5 Blood neg Sp. Gr. 1.020 Ketone neg Bili neg Gluc neg P-Culture, Urine Reviewed date:11/08/2024 12:57:12 AM Interpretation: Performing Lab: Notes/Report: Test performed by [facility] [address] [place] [address] , [address], [place] [address] Link Uribe MD, Balance Wheel Motion Inspector CLIA: [id number] Specimen Source Urine - Void Culture, Urine [...] Status Risk Notes Problem Multi-infarct dementia, uncomplicated (47642917) Vascular dementia, unspecified dementia severity, unspecified whether behavioral, psychotic, or mood disturbance or anxiety (F01.50) Active confirmed Problem COPD - Chronic obstructive pulmonary disease (98816510) Chronic obstructive pulmonary disease, unspecified COPD type (J44.9) Active confirmed Problem Aneurysm (370417801) Aneurysm of unspecified site (I72.9) Active confirmed Problem Hypothyroidism (37599905) Hypothyroidism, unspecified type (E03.9) Active confirmed Problem Hyperlipidaemia (41625910) Hyperlipidemia, unspecified hyperlipidemia type (E78.5) Active confirmed Problem Insomnia (637332998) Insomnia, unspecified type (G47.00) Active confirmed Problem Essential hypertension (19982653) Essential (primary) hypertension (I10) Active confirmed Encounters Encounter Location Date Provider [facility] [address] [id number] 11/04/2024 Anni Candelaria Dysuria R30.0 ; Asth [...] Notes * CASEY NEGRONDOB:1955 (69 yo F)Acc No.[id number]:11/04/2024 Patient: CASEY TAPIA Provider: CYNTHIA Mitchell :1955 A ge:69 Y S ex:Female Date:11/04/2024 Address:[address] [place] [id number] Subjective: * Chief Complaints: * 1 . [...] Information: * Visit Code: * Procedure Codes: 98039 Urinalysis, no micro. * Electronic signature of CYNTHIA Moncada on 12/02/2024 at 12:54 PM EDT Sign off status: Pending * Provider: CYNTHIA Mitchell Date: 0 11/04/2024 Generated for Nigel ng/Faxing/eTransmitting on: 0 12/02/2024 12:54 PM EDT
[2024-12-02] VITALS (18 sets, daily range): BP systolic 76–139; BP diastolic 44–82; PULSE 74–128; RESP 14–20; TEMP 36.1–38; O2SAT 89–99; BMI 31.6; BMI 30.1
--- NOTE | 2024-12-02 12:47 | CT_ITS ---
FINAL REPORT TECHNIQUE: Thin section axial CT with contrast with multiplanar reconstruction This study was performed with techniques to keep radiation doses as low as reasonably achievable, (ALARA). Individualized dose reduction techniques using automated exposure control or adjustment of mA and/or kV according to the patient's size were employed. CLINICAL HISTORY: shortness of breath, hypoxia COMPARISON: None FINDINGS: CTA CHEST: There is significant motion artifact which limits overall exam quality. Pulmonary vessels enhance in normal fashion without gross evidence of embolism. Thoracic aorta shows no dissection or aneurysm. There is moderate atelectasis of the right lung base. The left lung is clear. There is no significant pleural effusion. There is no significant pericardial effusion. No mediastinal or hilar adenopathy is present. No evidence of pneumonia is identified. IMPRESSION: 1. No evidence of pulmonary embolism 2. Moderate atelectasis of the right lung base. 3. No evidence of pneumonia. Reviewed, Interpreted and Dictated by Kerry Hinds MD Transcribed by Nasima Multani Authenticated and [facility]
--- NOTE | 2024-12-02 12:47 | CT_ITS ---
FINAL REPORT TECHNIQUE: IV contrast enhanced exam This study was performed with techniques to keep radiation doses as low as reasonably achievable, (ALARA). Individualized dose reduction techniques using automated exposure control or adjustment of mA and/or kV according to the patient's size were employed. CLINICAL HISTORY: Abdominal pain, generalized COMPARISON: None FINDINGS: CT ABDOMEN PELVIS WITH CONTRAST: Abdomen: The gallbladder is severely distended, with mild biliary ductal dilatation and no definite gallstones visualized. Liver has an unremarkable CT appearance. Mild splenomegaly is noted. The pancreas and adrenal glands are unremarkable. Kidneys show no mass or obstruction. There is a small amount of ascites present in the upper quadrants, and minimal pneumoperitoneum is present as well. Bowel perforation is questioned. There is wall thickening of the distal stomach and duodenal bulb, and peptic ulcer disease is not excluded as a cause of potential perforation. There is some thickening of the jejunal folds as well. Pelvis: The appendix is not visualized. Pelvic bowel loops are unremarkable. No adenopathy is seen. A small amount of free fluid is present in the pelvis. No obvious diverticulitis is identified. The uterus is atrophic. IMPRESSION: 1. There is minimal pneumoperitoneum present, and bowel perforation is question. There is wall thickening of the distal stomach and duodenal bulb, and peptic ulcer disease is not excluded as a cause of potential perforation. 2. Severe distention of the gallbladder, with mild biliary ductal dilatation. No definite gallstones are identified. 3. Mild splenomegaly of uncertain etiology. Reviewed, Interpreted and Dictated by Kerry Hinds MD Transcribed by Nasima Multani Authenticated and [facility]
--- NOTE | 2024-12-02 12:49 | ED_ITS ---
Discharge Plan Disposition Patient Disposition: Admitted Clinical Impressions Clinical Impression: Perforated bowel, Acute pancreatitis Discharge ED Provider: Kuldeep Bynum General Adult HPI General Chief complaint: Abdominal Pain Stated complaint: ABD Pain Time Seen by Provider: 12/02/24 12:40 Mode of Arrival: EMS Source of Information: Patient and EMS Description of Symptoms (Recalled from ER Triage Doc. by RN): Pt reports all over abdominal pain with nausea that began at approx 0700 this date. Pt also reports having some SOA. History of Present Illness HPI narrative: Luiza Vega is a 69-year-old female with a history of osteoporosis who presents to the emergency department via EMS for abdominal pain and nausea. Patient states that she woke up today and had sudden onset generalized abdominal pain. She reports nausea but no vomiting. She reports that she has been having normal bowel movements and her last bowel movement was yesterday. She denies any dysuria, hematuria or changes in urinary frequency. She states that she has not had a fever. She denies any chest pain or shortness of breath. EMS noted that she was initially hypoxic to 85% but was on 2 L nasal cannula and route with oxygen saturation at 95% SpO2. She denies any cough. Related Data Home Medications ?Medication ?Instructions ?Recorded ?Confirmed duloxetine 60 mg capsule,delayed 120 mg PO DAILY Depre ssion 09/09/17 11/10/24 release vit E 12 mg-vit E mix 50 2 each PO DIRECTED Supple ment 03/04/21 11/10/24 mg-squalene 6.6 mg-phytosterol 3.3 mg capsule diclofenac sodium 20 2 pump topical BID Pain 12/1611/10/24 mg/gram/actuation (2 %) topical soln metered-dose pump hydromorphone (PF) 1 mg/mL in 0.9% 0.5 mg intrathecal CONT CHRONIC 12/26/21 11/10/24 sodium chloride intravenous syringe PAIN ropinirole 2 mg tablet 2 mg PO HSP PRN RESTLESS LEG S 03/20/22 11/10/24 ascorbic acid (vitamin C) 500 mg 500 mg PO QID Supplem ent 04/29/22 11/10/24 tablet (Vitamin C) ergocalciferol (vitamin D2) 1,250 50,000 unit PO WEEKL Y Supplement 04/29/22 11/10/24 mcg (50,000 unit) capsule zinc sulfate 50 mg zinc (220 mg) 220 mg PO DAILY Suppl ement 04/29/22 11/10/24 capsule pramipexole 1.5 mg tablet 1.5 mg PO HS . 08/05/2210/17 meloxicam 15 mg tablet 15 mg PO DAILY 03/03/2310/17 Previous Rx's ?Medication ?Instructions ?Recorded ondansetron 4 mg disintegrating 4 mg PO Q8H PRN nausea and 12/13/22 tablet vomiting 4 days #12 tabs tramadol 50 mg tablet 50 mg PO BID #60 tabs pregabalin 100 mg capsule (Lyrica) 100 mg PO QID Pain #120 caps 10/17/24 Allergies Allergy/AdvReac Type Severity Reaction Status Date / Time Sulfa (Sulfonamide Allergy Unknown NA-NAUSEA/V Verified 08/26/24 14:06 Antibiotics) (SULFA OMITING (SULFONAMIDE ANTIBIOTICS)) [facility] Disclaimer: The information contained in this section may have been updated after the patient was seen, as this information can be updated by other users. Medical History (Updated 12/02/24 @ 17:35 by George Jacob MD) Asthma Type 2 diabetes mellitus History of renal dialysis Peptic ulcer disease Arthritis Anemia Fibromyalgia History of TB (tuberculosis) Chronic pain Depression Iron deficiency anemia Cervical (neck) region somatic dysfunction Degenerated intervertebral disc Surgical History History of colonoscopy History of esophagogastroduodenoscopy (EGD) History of cervical spinal surgery Family History Other Cancer Coronary artery disease Diabetes Hypertension Social History Smoking Status: Never smoker second hand exposure: No alcohol intake: never substance use type: denies use current occupational status: other Travel in the last 8 weeks?: None household members: none housing: house current occupational exposures/hazards: No caffeine: Yes Have you lived/traveled outside [place] in past 30 days?: No Contact w/someone who lives/traveled outside [place] past 30 days?: No Exposure to someone with infectious disease in past 14 days?: No Do you have a fever (greater than 100.4 F or 38 C)?: No Have you tested positive for COVID-19?: No Exposed to someone with COVID-19 in past 14 days?: No Do you have a sore throat?: No Do you have a cough?: No Do you have any weakness?: No Do you have any diarrhea?: No Are you experiencing any unusual bleeding?: No Do you have any muscle aches/pain?: No Do you have any abdominal pain?: Yes Are you experiencing loss of taste or smell?: No Other Medical History Have you received the Flu Vaccine for this season: Yes Have you received the Pneumonia Vaccine: Yes ROS Obtained: Yes Systems reviewed as appropriate & no additional complaints except as documented Physical Exam General General appearance: alert and in no apparent distress Comment: ill appearing. Uncomfortable Head Head exam: atraumatic Eye Eye exam: Present normal appearance ENT ENT exam: Present normal external ear exam Neck Neck exam: Present full ROM Chest Chest inspection: Present symmetric chest wall rise Respiratory Respiratory exam: Present normal lung sounds bilaterally; Absent respiratory distress, wheezes or stridor Cardiovascular Cardiovascular exam: Present regular rate and normal rhythm Abdominal Exam Abdominal exam: Present soft and tenderness (Generalized but more focally in the epigastric and right upper quadrant and left upper quadrant with guarding in the epigastric region. Abdomen is somewhat distended but overall soft and nonperitonitic); Absent guarding Extremities Exam Extremities exam: Present normal inspection Back Exam Back exam: Present normal inspection Neurological Exam Neurological exam: Present alert and oriented X3 Psychiatric Psychiatric exam: Present normal affect Skin Skin exam: Present warm and dry Medical Decision Making Medical Records Screening: Per USPSTF and CDC recommendations, given the prevalence of disease in our region, it is our hospital?s policy to screen for HIV and viral Hepatitis for all patients aged 18 and over and those with ongoing risk factors. Don Inquiry Pt receiving controlled substance: No Vital Signs: 12/02/24 12:44 12/02/24 13:01 12/02/24 13:30 Temperature 98.5 F Temperature Source Oral Pulse Rate 96 H 107 H Pulse Rate [Left] 113 H Respiratory Rate 16 18 18 Blood Pressure 121/77 134/75 Blood Pressure [Right Arm] 112/77 Blood Pressure Mean 84 88 Blood Pressure Mean [Right Arm] 88 Blood Pressure Source [Right Arm] Automatic Cuff Blood Pressure Position [Right Arm] Supine 02 Sat by Pulse Oximetry 93 L 96 95 Oxygen Delivery Method Nasal Cannula Oxygen Flow Rate (LPM) 5 12/02/24 14:30 12/02/24 15:30 12/02/24 16:00 Temperature Temperature Source Pulse Rate 108 H 118 H 120 H Pulse Rate [Left] Respiratory Rate 18 18 18 Blood Pressure 134/71 115/64 99/60 L Blood Pressure [Right Arm] Blood Pressure Mean 91 81 84 Blood Pressure Mean [Right Arm] Blood Pressure Source [Right Arm] Blood Pressure Position [Right Arm] 02 Sat by Pulse Oximetry 96 97 98 Oxygen Delivery Method Oxygen Flow Rate (LPM) 12/02/24 16:30 Temperature Temperature Source Pulse Rate 125 H Pulse Rate [Left] Respiratory Rate 20 Blood Pressure 85/51 L Blood Pressure [Right Arm] Blood Pressure Mean 64 Blood Pressure Mean [Right Arm] Blood Pressure Source [Right Arm] Blood Pressure Position [Right Arm] 02 Sat by Pulse Oximetry 99 Oxygen Delivery Method Oxygen Flow Rate (LPM) Lab Data Lab Results 12/02/24 13:11: WBC 4.7 L, RBC 4.26, Hgb 12.9, Hct 42.0, MCV 98.6, MCH 30.3, M CHC 30.7 L, RDW 13.8, Plt Count 193, MPV 9.3, Neut % (Auto) 79.4, Lymph % (Auto) 11.9, [place] % (Auto) 8.1, Eos % (Auto) 0.4, Baso % (Auto) 0.0 L, Neut # (Auto) 3.7, Lymph # (Auto) 0.6 L, [place] # (Auto) 0.4, Eos # (Auto) 0.0, Baso # (Auto) 0.0, VBG pH 7.22 L, VBG pCO2 46.5, VBG pO2 38.6, VBG HCO3 18.6 L, VBG Total CO2 20.0 L, VBG O2 Saturation 69.9, VBG Base Excess -9.2 L, VBG Lactic Acid 2.3 H, Sodium 137, Potassium 4.1, Chloride 106, Carbon Dioxide 24, Anion Gap 11.1, BUN 19 H, Creatinine 0.90, Estimated Creat Clear 67, Estimated GFR 62, Est GFR ( Amer) 75, Glucose 124 H, Calcium 11.3 H, Magnesium 1.7, Total Bilirubin 0.5, AST 30, ALT 16, Alkaline Phosphatase 72, Troponin I < 0.01, C-Reactive Protein 19.1 H, Total Protein 7.6, Albumin 3.9, Globulin 3.7 H, Albumin/Globulin Ratio 1.1, Lipase 858 H, HCV Ab JAY w/Rflx PCR Qn Negative, HIV Ag/Ab Combo Qual Negative 12/02/24 15:30: Urine Color Yellow, Urine Appearance Clear, Urine pH 5.5, Ur Specific [place] 1.020, Urine Protein 1+ A, Urine Glucose (UA) Negative, Urine Ketones Negative, Urine Blood 1+ A, Urine Nitrate Negative, Urine Bilirubin Negative, Urine Urobilinogen 0.2, Ur Leukocyte Esterase Negative, Urine RBC 20- 50, Urine WBC 5-10, Ur Squamous Epith Cells Occasional, Urine Bacteria 1+, Hyaline Casts 3-5, Urine Mucus 1+ 12/02/24 22:19 12/02/24 13:11 Orders (Tests/Meds): ED MEDICATIONS Generic Name Dose Route Start Last Admin Trade Name Freq PRN Reason Stop Dose Admin Acetaminophen 650 mg 12/02/24 19:46 Acetaminophen 650mg Suppository RC 01/01/25 19:45 Q6H PRN Fever or Mild Pain (1-3) Albuterol/Ipratropium 3 ml 12/02/24 19:07 Ipratropium/Albuterol 3 Ml Neb IH 01/01/25 19:06 Q2HP PRN Wheezing Enoxaparin Sodium 40 mg 12/03/24 09:00 Enoxaparin 40mg/0.4ml Syringe SUBCUT 01/02/25 08:59 DAILY FANTA Piperacillin Sod/Tazobactam 50 mls @ 100 mls/hr 12/02/24 19:00 12/02/24 20:05 Sod 3.375 gm/ Sodium Chloride IV 12/12/24 18:59 100 mls/hr Q6H FANTA Administration Fluconazole 200 mg in 100 mls @ 200 mls/hr 12/02/24 19:00 12/02/24 20:05 Diflucan 200mg/100ml Ivpb IV 12/12/24 18:59 200 mls/hr Q24H FANTA Administration Propofol 100 mls @ 2.226 mls/hr 12/02/24 19:15 12/02/24 22:07 Diprivan 10mg/Ml 100ml Bottle IV 01/01/25 19:14 45 mcg/kg/min .Q24H FANTA 20.03 mls/hr Protocol Administration 5 MCG/KG/MIN Lactated Ringer's 1,000 mls @ 150 mls/hr 12/02/24 20:00 12/02/24 20:22 Lactated Ringer's 1000 Ml Bag IV 01/01/25 19:59 150 mls/hr .Q6H40M FANTA Administration Norepinephrine/Dextrose 8 mg in 250 mls @ 15 mls/hr 12/02/24 21:15 Levophed 8mg/250ml-D5w Premix IV 01/01/25 21:14 .[id number] FANTA Protocol 8 MCG/MIN Fentanyl Citrate 1,000 mcg/ 100 mls @ 2.5 mls/hr 12/02/24 21:15 12/02/24 22:20 Sodium Chloride IV 01/01/25 21:14 75 mcg/hr .Q24H FANTA 7.5 mls/hr Protocol Titration 25 MCG/HR Vancomycin/PEG/NADA/Lysine/Water 1.75 gm in 350 mls @ 175 mls/hr 12/02/24 21:15 Vancomycin 1.75gm/350ml (Peg) Premix IV 12/02/24 23:14 ONCE ONE Morphine Sulfate 2 mg 12/02/24 19:07 Morphine 2mg/Ml Syringe IV 01/01/25 19:06 Q2HP PRN Severe Pain (7-10) Pantoprazole Sodium 40 mg 12/02/24 21:00 12/02/24 21:48 Pantoprazole 40mg Vial IV 01/01/25 20:59 40 mg BID FANTA Administration Pantoprazole Sodium 40 mg 12/02/24 21:00 12/02/24 22:32 Pantoprazole 40mg Vial IV 01/01/25 20:59 Not Given HS FANTA Sodium Chloride 10 ml 12/02/24 14:06 12/02/24 14:07 Sodium Chloride 0.9% 10ml Syr (Rad Only) IV 01/01/25 14:05 10 ml NEEDED PRN Administration Maintain IV Site Sodium Chloride 10 ml 12/02/24 19:01 Sodium Chloride 0.9% 10ml Vial IV 01/01/25 19:00 NEEDED PRN dilute protonix Sodium Chloride 3 ml 12/02/24 19:07 Sodium Chloride 3% 15ml Neb IH 01/01/25 19:06 ONCE PRN INDUCE SPUTUM COLLECTION Sodium Chloride 10 ml 12/02/24 19:07 Sodium Chloride 0.9% 10ml Vial IV 01/01/25 19:06 NEEDED PRN dilute protonix Discontinued Medications Generic Name Dose Route Start Last Admin Trade Name Freq PRN Reason Stop Dose Admin Lactated Ringer's 500 mls @ 250 mls/hr 12/02/24 13:49 12/02/24 13:58 Lactated Ringer's 1000 Ml Bag IV 12/02/24 15:48 250 mls/hr .Q2H ONE Administration Piperacillin Sod/Tazobactam 100 mls @ 200 mls/hr 12/02/24 15:51 12/02/24 20:01 Sod 4.5 gm/ Sodium Chloride IV 12/02/24 16:20 Not Given ONCE ONE Iopamidol 85 ml 12/02/24 14:06 12/02/24 14:07 Iopamidol-370 (76%);100ml Bottle IV 12/02/24 14:07 85 ml ONCE ONE Administration Morphine Sulfate 2 mg 12/02/24 12:49 12/02/24 13:25 Morphine 2mg/Ml Syringe IV 12/02/24 12:50 2 mg ONCE ONE Administration Ondansetron HCl 4 mg 12/02/24 12:49 12/02/24 13:25 Ondansetron 4mg/2ml Vial IV 12/02/24 12:50 4 mg ONCE ONE Administration Sodium Chloride 50 ml 12/02/24 14:06 12/02/24 14:07 0.9 % Sodium Chloride 50 Ml Vial IV 12/02/24 14:07 50 ml ONCE ONE Administration ORDERS Category Date Time Status CT abdomen pelvis w con Stat Cat Scan 12/02/24 12:[address] angio chest PE protocol Stat Cat Scan 12/02/24 12:47 Completed CBC w/Auto Diff [Complete Blood Count Auto Diff] Stat Lab 12/02/24 13:11 Completed CMP [Comprehensive Metabolic Panel] Stat Lab 12/02/24 13:11 Completed CRP [C-Reactive Protein] Stat Lab 12/02/24 13:11 Completed Lipase Stat Lab 12/02/24 13:11 Completed Magnesium Stat Lab 12/02/24 13:11 Completed Troponin I Stat Lab 12/02/24 13:11 Completed UA [Urinalysis and Microscopic] Stat Lab 12/02/24 15:30 Completed Urine Culture(cathed specimen) Routine Micro 12/02/24 17:48 Uncollected VBG [Venous Blood Gas] Stat RT 12/02/24 13:11 Completed ECG Data Tracing #1: I reviewed this ECG and interpreted as documented below: Sinus tacyhcardia, No ST elevation or depression. QTC normal at 356. T wave inversions in V2, V3 Medical Decision Narrative: Luiza Vega is a 69-year-old female with a history of osteoporosis who presents to the emergency department via EMS for abdominal pain and nausea. Patient states that she woke up today and had sudden onset generalized abdominal pain. She reports nausea but no vomiting. She reports that she has been having normal bowel movements and her last bowel movement was yesterday. She denies any dysuria, hematuria or changes in urinary frequency. She states that she has not had a fever. She denies any chest pain or shortness of breath. EMS noted that she was initially hypoxic to 85% but was on 2 L nasal cannula and route with oxygen saturation at 95% SpO2. She denies any cough. On arrival, patient is normotensive, borderline tachycardic with a heart rate of 96 bpm, afebrile, oxygen saturation 84% on room air and was put on 5 L nasal cannula with improvement to 96% SpO2. Patient states that she has significant pain with deep breathing, which is likely contributing to her low oxygen levels. Physical exam, stated above, revealed an ill but nontoxic appearing female. She appears uncomfortable. She has tenderness throughout the abdomen but more focally in the epigastric, right upper quadrant and left upper quadrant. She has some guarding in the epigastric region without peritonitis. Cardiopulmonary exam is unremarkable with no murmurs, wheezing rales or rhonchi. No significant peripheral edema. She is alert and oriented appropriately. Differential diagnosis includes, but is not limited to: Acute pancreatitis, peptic ulcer disease, perforated viscus, small bowel obstruction, constipation, viral gastritis, pulmonary embolism, ACS, pneumonia, pleurisy, acute cholecystitis, urinary tract infection, among others. The most morbid conditions were considered and workup was based on these. Workup in the emergency department included: CT abdomen pelvis with IV contrast, CT angio pulmonary embolism protocol, CBC, VBG with lactic acid, CMP, magnesium, troponin, CRP, lipase, urinalysis, EKG. Patient symptoms are treated with 2 mg IV morphine and 4 mg IV Zofran EKG showed sinus tach non-specific T wave inversions in V2 and V3. No STEMI. See interpretation above. Laboratory studies show no leukocytosis with white blood cell count mildly low at 4.7, no anemia, low pH of 7.22 with lactate elevated 2.3. Bicarb low at 18.6. Electrolytes within normal limits. No [place] but BUN mildly elevated at 19. Calcium mildly elevated at 11.3 but liver enzymes within normal limits and bilirubin normal at 0.5. Troponin less than 0.01. CRP mildly elevated at 19. Lipase is significantly elevated 858 consistent with acute pancreatitis. Patient was given 1 L of lactated Ringer's. CT imaging interpreted by me personally. No pulmonary embolism. She has atelectasis present bilaterally but no infectious process identified. CT abdomen pelvis, per radiology shows minimal pneumoperitoneum and bowel perforation is question. There is wall thickening of the distal stomach and duodenal bulb, and peptic ulcer disease is not excluded as cause of potential perforation. Severe distention of the gallbladder with mild biliary ductal dilatation. No definite gallstones are identified. Mild splenomegaly of uncertain etiology. Given possible bowel perforation, will discuss patient's case with general surgery. I discussed the case with Dr. Contreras who agreed to evaluate the patient and plan for OR. He also recommended discussing the patient's case with Dr. Jacob's group for admission. Also initiating Zosyn 4.5 mg due to concern for perforated bowel. I did discuss patient's case with Dr. Jacob to make him aware the patient will be admitted after surgery. Patient was then taken to the OR for further management. Critical Care Critical Care Time Critical Care Time: Yes Attestation: On 12/02/24, the high probability of a clinically significant, sudden or life threatening deterioration of the following system(s) required my full and direct attention, intervention and personal management. The time I documented below is in addition to time spent performing reported procedures but includes the following listed in this critical care notation. Total Time Total Critical Care Time: 35
--- OUTSIDE RECORDS SUMMARY | 2024-12-02 12:54 | XMS_ITS | Data Portability ---
Author Organization [place] [facility], [facility] Address [address] [place] [address] Assessment Encounter Date Assessment Date Assessment LastModified by Organization Details LastModified Time 02/18/2024 02/18/2024 This patient had refill of her intrathecal hydromorphone pain pump today. She also did undergo MRI. We will follow-up on her MRI. She does have antalgic gait. Motor strength of lower extremities is 5/5. There is no gross sensory deficit. Don and drug screen are all appropriate. We refilled her pump and increased her to 2 mg/day. She was having some increasing pain. We have also let the [place] office know to get her approved for a change out of her pump and catheter as she does have a nonfunctional [employer]ix Pain pump system This patient has a Flowonix Pain pump in place. This company has filed bankruptcy and is out of business. There is no support for these pain pumps.There is a warning concerning premature battery failure for these pumps.This patient is having malfunction of their pain pump with increasing pain.We are concerned that this pump is malfunctioning so we will need to change their pump system entirely to a Medtronic system. The Flowonix Catheter is not compatible with a Medtronic system so we will need to change intrathecal catheter as well as pump generator. If this pump fails it may cause severe morbidity to the patient. We will seek approval for change out of her pump and catheter in [place]. [facility]ux Not available 02/18/2024 17:23:51 Plan of Treatment Reminders Order Date Submit Date Provider Last Modified By Organization Details Last Modified Time Details Appointments None recorded. Lab None recorded. Referral None recorded. Procedures intrathecal pump refill (PROC) 2023 024 [email or web address] Not available 4 18:46:52 Surgeries None recorded. Imaging None recorded. Medication Orders None recorded. Patient TargetsNo targets recorded. Patient InstructionsNo instructions recorded. Reason for Referral None Reported. Problems Name Problem SNOMED Code Status Onset Date Resolution Date Notes Provider Name and Address Organization Details Recorded Time Intervertebral disc disorder 23710319 Active 2022 GISELA CARDONA null, [place] - [facility] 3 15:19:38 Problem Notes None recorded. Procedures Surgical History Date Name Laterality Status Provider Name and Address Organization Details Recorded Time 02/17 Pump Refill completed Marty Tsang MD [address] [address], [place], [address] , [place] [facility] 4 17:22:44 surgical procedure o n cervical spine completed Randi Urena [place] [facility] 4 09:53:02 colonoscopy completed Randi Urena [place] [facility] 4 09:53:12 esophagogastroduodenoscopy completed Randi Urena [place] [facility] 4 09:54:17 Imaging Results None recorded. Procedure Notes None recorded. Medical Equipment None Reported. Medications Name Sig Start Date Stop Date Status Note LastModified by Organization Details LastModified Time DILAUDID 10 DISPENSE IN 20 ML FOR INTRATHECAL PUMP INFUSION 2023 active Not Available Not Available Not Avai lable DILAUDID 10 DISPENSE IN 20 ML FOR INTRATHECAL PUMP INFUSION 2023 active Not Available Not Available Not Avai lable DILAUDID 10 DISPENSE IN 20 ML FOR INTRATHECAL PUMP INFUSION 2022 active Not Available Not Available Not Avai lable nm vitd 5000iu sg active Not Available Not Available No t Available DILAUDID 10 DISPENSE IN 20 ML FOR INTRATHECAL PUMP INFUSION 2023 active Not Available Not Available Not Avai lable DILAUDID 10 DISPENSE IN 20 ML FOR INTRATHECAL PUMP INFUSION 2023 active Not Available Not Available Not Avai lable celecoxib 200 mg capsule TAKE ONE CAPSULE BY MOUTH ONCE DAILY --TAKE WITH FOOD-- active Not Available Not Available No t Available primidone 50 mg tablet TAKE ONE TABLET BY MOUTH IN THE EVENING FOR 1 WEEK, THEN TAKE TWO TABLETS IN THE EVENING FOR 1 WEEK, THEN three tablets IN THE EVENING FOR 1 WEEK, THEN four tablets IN THE EVENING active Not Available Not Available Not Available ropinirole 1 mg tablet TAKE ONE TABLET BY MOUTH EVERY DAY 1-3 hours BEFORE bedtime active Not Available Not Available No t Available clindamycin HCl 300 mg capsule active Not Available Not Available Not Available meloxicam 15 mg tablet TAKE ONE TABLET BY MOUTH EVERY DAY active Not Available Not Available No t Available metronidazol e 500 mg tablet TAKE ONE TABLET BY MOUTH THREE TIMES DAILY FOR 10 DAYS -- FINISH ALL MEDICINE -- --AVOID ANY PRODUCT(S) CONTAINING ALCOHOL WHILE TAKING THIS MEDICATION- - active Not Available Not Available No t Available omeprazole 40 mg capsule,yaz yed release TAKE ONE CAPSULE BY MOUTH DAILY 30 MINUTES BEFORE morning meal active Not Available Not Available No t Available tramadol 50 mg tablet TAKE ONE TABLET BY MOUTH TWICE DAILY MAY CAUSE DROWSINESS active Not Available Not Available N ot Available sodium bicarbonate 650 mg tablet TAKE TWO TABLETS BY MOUTH EVERY DAY active Not Available Not Available No t Available colesevelam 625 mg tablet TAKE THREE TABLETS BY MOUTH TWICE DAILY with meals active Not Available Not Available No t Available ropinirole 2 mg tablet TAKE ONE TABLET BY MOUTH ONCE DAILY AT BEDTIME active Not Available Not Available No t Available cephalexin 500 mg capsule TAKE ONE CAPSULE BY MOUTH TWICE DAILY FOR 10 DAYS -- FINISH ALL MEDICINE -- active Not Available Not Available Not Available hydrochlorot hiazide 12.5 mg capsule TAKE ONE CAPSULE BY MOUTH EVERY DAY IN THE MORNING active Not Available Not Available No t Available furosemide 20 mg tablet TAKE ONE TABLET BY MOUTH EVERY DAY active Not Available Not Available No t Available lorazepam 1 mg tablet TAKE ONE TABLET BY MOUTH 1 hour prior TO MRI THEN can REPEAT DOSE 15 minutes BEFORE MRI MAY CAUSE DROWSINESS active Not Available Not Available N ot Available albuterol sulfate HFA 90 mcg/actuatio n aerosol inhaler active Not Available Not Available Not Available ondansetron 4 mg disintegrati ng tablet DISSOLVE 1 TABLET IN MOUTH EVERY 8 HOURS NEEDED FOR NAUSEA AND VOMITING FOR 4 DAYS active Not Available Not Available N ot Available fluticasone propionate 50 mcg/actuatio n nasal spray,suspen devin active Not Available Not Available Not Available pramipexole 1.5 mg tablet active Not Available Not Available Not Available diazepam 5 mg tablet TAKE ONE TABLET BY MOUTH NEEDED FOR MRI. MAY REPEAT 1 TIME DIRECTED. active Not Available Not Available No t Available nitrofuranto in monohydrate/ macrocrystal s 100 mg capsule TAKE 1 CAPSULE BY MOUTH TWICE DAILY WITH A MEAL FOR 7 DAYS active Not Available Not Available No t Available duloxetine 60 mg capsule,yaz yed release TAKE TWO CAPSULES BY MOUTH EVERY DAY active Not Available Not Available No t Available pregabalin 100 mg capsule TAKE ONE CAPSULE BY MOUTH FOUR TIMES DAILY FOR PAIN active Not Available Not Available No t Available cholecalcife rol (vitamin D3) 1,250 mcg (50,000 unit) capsule active Not Available Not Available Not Available diclofenac 1 % topical gel active Not Available Not Available Not Available Breo Ellipta 200 mcg-25 mcg/dose powder for inhalation INHALE 1 PUFF BY MOUTH EVERY DAY active Not Available Not Available No t Available Vitals None Recorded Social History None recorded. Functional Status Question Answer Note LastModified by Organizat ion Details LastModified Time Do you use any illicit or recreational drugs? No [email or web address] Information not available 02/18/2024 Do you or have you ever used any other forms of tobacco or nicotine? No [email or web address] Information not available 02/18/2024 What is your level of alcohol consumption? None [email or web address] Information not available 02/18/2024 Mental Status None recorded. Family History Nothing Reported. Medical History Condition Response Coronary Artery Disease N Gout N Head Trauma/Injury Y Depression Y COPD N Anxiety Disorder N Arthritis Y Acid Reflux (GERD) N Cancer N Stroke N Fibromyalgia Y Headaches N Kidney Disease N Ulcers N Bleeding Disorder N Tuberculosis Y AIDS/HIV N Asthma Y Substance Abuse N Hepatitis N Hernia N Back Injury N High Cholesterol N Liver Disease N Thyroid Problems N Anemia Y Heart Attack (AR) N Diabetes Y Heart Disease N Hypertension N Osteoporosis N Gynecological HistoryNo gynecological history recorded. Obstetrics History GPAL:G 0 P 0 0 0 0 Past Encounters Encounter ID Performer Location Encounter Start Date Encounter Closed Date Diagnosis/Indication Diagnosis SNOMED-CT Code Diagnosis ICD10 Code Diagnosis Note [id number] Marty Tsang MD [address] [place] [address] 02/18/2024 09:45:35 02/18/2024 12:22:13 Intervertebral disc disorder 18970013 M51.9 Degenerati on of lumbar intervertebral disc 83173249 M51.369 Lumbar radiculopathy 128 150035 M54.16 Lumbar spondylosis 29431 0009 M47.896 Health Concerns Section Related Observation LastModified by Organization Detai ls LastModified Time None Recorded Concern Status LastModified by Organization Details LastModified Time None Recorded Advance Directives Directive None Recorded Payers Insurance Date Sequence Insurance Name Policy Number Policy Sewell Covered Member ID Sewell Member ID Guarantor Name 07/11/2021 1 *SELF PAY* [place] org[place] Fariba Vega 05/22/2022 1 [place] [id number] Luiza Vega [id number] [place] Fariba Vega 11/29/2024 1 [employer] (MEDICARE REPLACEMENT/ ADVANTAGE - PPO) Sherita Vega [id number] [place] Fariba Vega Notes Date Note Type Note Provider Name and Address Organization Details Recorded Time 02/18/2024 text/html Back PainReporte d bypatient.Location :pain radiating to the legs Duration:chronic Marty Tsang MD [address], [address], [place] [facility] 02/18/2024 17:25:00 OBGyn Episode No OBEpisode recorded.
--- OUTSIDE RECORDS SUMMARY | 2024-12-02 12:54 | XMS_ITS | Clinical Summary ---
Author Organization Healthcare Address [address] 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
--- OUTSIDE RECORDS SUMMARY | 2024-12-02 12:54 | XMS_ITS | Referral Summary ---
Author Organization [facility] ([place], [place], [place], [place]) Address [address] [place] [address] Care Team Providers Care Veterans Services Specialist Name Role Phone Anni Candelaria Primary Care Provider [phone] Allergies Active Allergy Reactions Criticality Noted Date [...] times daily with breakfast and dinner. Active [id number] -DPA-fish oil 1,050-1,200 mg Cap per capsule [...] Years Used Date Smoking Tobacco: Never Assessed Family and Community Support Answer Fabian e Recorded Help with Day to Day Activities Not on file 08/04/2023 Feeling Lonely or Isolated Not on file 08/03 Educational Attainment Answer Date Lino rded Speak language other than Estonian at home Not on file 08/04/2023 Want help with school or training Not on file 08/04/2023 Substance Use Answer Date Recorded Used [...] file Insurance [employer] MEDICARE PPO Care Teams Veterans Services Specialist Relationship Specialty Start Date End Date Anni Candelaria PA [address] [place] [address] PCP - General Physician Senior Graduate Advisor 08/06/23
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
--- OUTSIDE RECORDS SUMMARY | 2024-12-02 12:54 | XMS_ITS | Data Portability ---
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 Operator Name Role Phone EDY HERMAN Primary Care Provider [phone] Assessment Encounter Date Assessment Date Assessment LastModified by Organization Details LastModified Time 01/20/2024 01/20/2024 -MRI brain w/ and w/out for cognitive impairment, gait difficulties -lab workup for cognitive impairment -B complex vitamin -cognitive exercises -offered PT; pt unable to due to chronic pain -f/u with Pain Management -f/u as [place] [id number] Not available 01/20/2024 16:05:08 Plan of Treatment Reminders Order Date Submit Date Provider Last Modified By Organization Details Last Modified Time Details Appointments None recorded. Lab CBC w/ auto diff 2024 025 [facility], [address] , [place], [address], 5 17:49:41 vitamin B12 + folate, serum or blood 2024 025 [email or web address] 6 [facility], [address] , [place], [address], 5 09:02:13 CMP, serum or plasma 2024 025 [facility], [address], [place], [address], 5 18:56:02 iron + TIBC + ferritin, serum 2024 025 [email or web address] 6 [facility], [address] [place], [address], 5 09:02:12 iron saturation, serum 2024 025 [email or web address] 6 [facility], [address] [place], [address], 5 09:02:13 CBC w/ auto diff 2023 024 [email or web address] 6 [facility], [address] [place], [address], 4 10:24:30 iron + TIBC + ferritin, serum 2023 024 [email or web address] 6 [facility], [address] [place], [address], 4 10:24:30 iron saturation, serum [address]23 [email or web address] [place] [address] Lab, [address] [place], [address], 4 10:24:30 PTH (parathyroi d hormone), intact, serum or plasma 2023 024 [email or web address] [facility], [address] [place], [address], 4 13:13:10 vitamin D, 25-hydroxy, total, serum 2023 [email or web address] [place] [address] Lab, [address] [place], [address], 4 08:30:01 immunofixat ion, serum 2023 024 [email or web address] 6 [facility], [address], [place], [address], 4 08:30:01 CBC w/ auto diff 2023 024 [facility], [address], [place], [address], 4 18:28:26 CMP, serum or plasma 2023 024 [facility], [address], [place], [address], 4 18:46:16 vitamin B12 + folate, serum or blood [address]23 [email or web address] [place] [address] Lab, [address], [place], [address], 4 08:30:00 mma (methylmalo orestes acid), serum 2023 [email or web address] [place] [address] Lab, [address], [place], [address], 4 09:08:50 copper, serum or plasma 2023 [email or web address] [place] [address] Lab, [address], [place], [address], 4 08:30:00 zinc, serum or plasma 2023 [email or web address] [place] [address] Lab, [address], [place], [address], 4 08:30:00 TSH + free T4, serum 2023 [email or web address] [place] [address] Lab, [address], [place], [address], 4 08:30:01 ldh, serum or plasma 2023 024 JACOB [facility], [address], [place], [address], 4 18:46:20 iron + TIBC + ferritin, serum 2023 024 [email or web address] 6 [facility], [address], [place], [address], 4 08:30:01 iron saturation, serum 2023 024 [email or web address] 6 [facility], [address], [place], [address], 4 08:30:01 erythropoie tin (epo), serum 2023 024 [email or web address] 6 [facility], [address], [place], [address], 4 08:30:02 CMP, serum or plasma 2023 024 [email or web address] [facility] (Lab Registration) , [address] [place] [address] [place], [address], 4 07:45:53 CBC w/ auto diff 2023 024 [email or web address] [facility] (Lab Registration) , [address] [place] [address] [place], [address], 4 07:45:53 TSH + free T4, serum 2023 024 [email or web address] [facility] (Lab Registration) , [address] [place] [address] [place], [address], 4 07:45:53 vitamin B12 + folate, serum or blood 2023 024 [facility] (Lab Registration) , [address] [place] [address] [place], [address], 4 07:45:53 Referral None recorded. Procedures None recorded. Surgeries None recorded. Imaging None recorded. Medication Orders vitamin B complex tablet 2023 [facility], [address] [place] [address] [place], [id number], 4 14:26:09 diazepam 5 mg tablet 2023 [facility], [address] [place] [address] [place], [id number], 4 12:35:17 Patient TargetsNo targets recorded. Patient InstructionsNo instructions recorded. Reason for Referral None Reported. Results Created Date Observation Date Name Description Value Unit Range Abnormal Flag Note LastModifiedBy Organization Detail LastModifiedTime 01/20/2001/20/2024 CBC W/ AUTO DIFF WBC 4.06 K/uL 4.5-11 .5 low Not Available [facility] (Pre-Op Clinic) [address] [place] [address] [place], [address], 01/20/2024 17:00:44 01/20/20 24 01/20/2024 CBC W/ AUTO DIFF RBC 3.19 M/uL 4.0-5. 4 low Not Available [facility] (Pre-Op Clinic) [address] [place] [address] [place], [address], 01/20/2024 17:00:44 01/20/20 24 01/20/2024 CBC W/ AUTO DIFF HGB 10.6 g/dL 12.0-1 5.0 low Not Available [facility] (Pre-Op Clinic) [address] [place] [address] [place], [address], 01/20/2024 17:00:44 01/20/20 24 01/20/2024 CBC W/ AUTO DIFF HCT 31.9 % 35-49 low Not Available [facility] (Pre-Op Clinic) [address] [place] [address] [place], [address], 01/20/2024 17:00:44 01/20/20 24 01/20/2024 CBC W/ AUTO DIFF MCV 100.0 fL 80.0-1 00.0 Not Available [facility] (Pre-Op Clinic) [address] [place] [address] [place], [address], 01/20/2024 17:00:44 01/20/20 24 01/20/2024 CBC W/ AUTO DIFF MCH 33.2 pg 26.0-3 2.0 high Not Available [facility] (Pre-Op Clinic) [address] [place] [address] [place], [address], 01/20/2024 17:00:44 01/20/20 24 01/20/2024 CBC W/ AUTO DIFF MCHC 33.2 g/dL 32.0-3 6.0 Not Available [facility] (Pre-Op Clinic) [address] [place] [address] [place], [address], 01/20/2024 17:00:44 01/20/20 24 01/20/2024 CBC W/ AUTO DIFF RDW 12.6 % 11.5-1 4.5 Not Available [facility] (Pre-Op Clinic) [address] [place] [address] [place], [address], 01/20/2024 17:00:44 01/20/20 24 01/20/2024 CBC W/ AUTO DIFF platelet count 119 K/uL 142-42 4 low Not Available [facility] (Pre-Op Clinic) [address] [place] [address] [place], [address], 01/20/2024 17:00:44 01/20/20 24 01/20/2024 CBC W/ AUTO DIFF MPV 9.9 fL 6.8-10 .2 Not Available [facility] (Pre-Op Clinic) [address] [place] [address] [place], [address], 01/20/2024 17:00:44 01/20/20 24 01/20/2024 CBC W/ AUTO DIFF neutrophil % 68.7 % 50-70 Not Available [facility] (Pre-Op Clinic) [address] [facility] [place], [address], 01/20/2024 17:00:44 01/20/20 24 01/20/2024 CBC W/ AUTO DIFF lymphocyte % 19.7 % 18.0-4 2.0 Not Available [facility] (Pre-Op Clinic) [address] [facility] [place], [address], 01/20/2024 17:00:44 01/20/20 24 01/20/2024 CBC W/ AUTO DIFF monocyte % 8.9 % 2.0-11 .0 Not Available [facility] (Pre-Op Clinic) [address] [place] [address] [place], [address], 01/20/2024 17:00:44 01/20/20 24 01/20/2024 CBC W/ AUTO DIFF eosinophil % 1.7 % 1.0-3. 0 Not Available [facility] (Pre-Op Clinic) [address] [facility] [place], [address], 01/20/2024 17:00:44 01/20/20 24 01/20/2024 CBC W/ AUTO DIFF basophil % 0.5 % 0.0-2. 0 Not Available [facility] (Pre-Op Clinic) [address] [facility] [place], [address], 01/20/2024 17:00:44 01/20/20 24 01/20/2024 CBC W/ AUTO DIFF immature granulocytes % 0.5 % 0.0-0. 8 Not Available [facility] (Pre-Op Clinic) [address] [place] [address] [place], [address], 01/20/2024 17:00:44 01/20/20 24 01/20/2024 CBC W/ AUTO DIFF nucleated red blood cells % 0.0 % Not Available [facility] (Pre-Op Clinic) [address] [place] [address] [place], [address], 01/20/2024 17:00:44 01/20/20 24 01/20/2024 CBC W/ AUTO DIFF neutrophil # 2.79 K/uL Not Available [facility] (Pre-Op Clinic) [address] [facility] [place], [address], 01/20/2024 17:00:44 01/20/20 24 01/20/2024 CBC W/ AUTO DIFF lymphocyte # 0.80 K/uL Not Available [facility] (Pre-Op Clinic) [address] [facility] [place], [address], 01/20/2024 17:00:44 01/20/20 24 01/20/2024 CBC W/ AUTO DIFF monocyte # 0.36 K/uL Not Available [facility] (Pre-Op Clinic) [address] [facility] [place], [address], 01/20/2024 17:00:44 01/20/20 24 01/20/2024 CBC W/ AUTO DIFF eosinophil # 0.07 K/uL Not Available [facility] (Pre-Op Clinic) [address] [facility] [place], [address], 01/20/2024 17:00:44 01/20/20 24 01/20/2024 CBC W/ AUTO DIFF basophil # 0.02 K/uL Not Available [facility] (Pre-Op Clinic) [address] [facility] [place], [address], 01/20/2024 17:00:44 01/20/20 24 01/20/2024 CBC W/ AUTO DIFF immature gramulocytes # 0.02 K/uL Not Available [facility] (Pre-Op Clinic) [address] [place] [address] [place], [address], 01/20/2024 17:00:44 01/20/20 24 01/20/2024 CBC W/ AUTO DIFF nucleated red blood cells # 0.00 k/uL Not Available [facility] (Pre-Op Clinic) [address] [place] [address] [place], [address], 01/20/2024 17:00:44 01/20/20 24 01/20/2024 CBC W/ AUTO DIFF manual differential NO Not Available [facility] (Pre-Op Clinic) [address] [place] [address] [place], [address], 01/20/2024 17:00:44 01/20/20 24 01/20/2024 CBC W/ AUTO DIFF note Unles s other rosa noted testi ng perfo [facility]med at: [facility] [address] [facility] [place] [address] Rogelio caballero MD Not Available [facility] (Pre-Op Clinic) [address] [place] [address] [place], [address], 01/20/2024 17:00:44 01/20/20 24 01/20/2024 COMP METAB OLIC PANEL sodium 133 mmol/ L 137-14 7 low Not Available [facility] (Pre-Op Clinic) [address] [place] [address] [place], [address], 01/20/2024 17:40:07 01/20/20 24 01/20/2024 COMP METAB OLIC PANEL potassium 4.5 mmol/ L 3.5-5. 1 Not Available [facility] (Pre-Op Clinic) [address] [place] [address] [place], [address], 01/20/2024 17:40:07 01/20/20 24 01/20/2024 COMP METAB OLIC PANEL chloride 92 mmol/ L 98-110 low Not Available [facility] (Pre-Op Clinic) [address] [place] [address] [place], [address], 01/20/2024 17:40:07 01/20/20 24 01/20/2024 COMP METAB OLIC PANEL carbon dioxide 33 mmol/ L 21-30 high Not Available [facility] (Pre[facility]Op [facility]) [address] [place] [address] [place], [address], 01/20/2024 17:40:07 01/20/20 24 01/20/2024 COMP METAB OLIC PANEL anion gap 8 mmol/ L 6-14 Not Available [facility] (Pre[facility]Op [facility]) [address] [facility] [place], [address], 01/20/2024 17:40:07 01/20/20 24 01/20/2024 COMP METAB OLIC PANEL glucose 87 mg/dL 70-115 Not Available [facility] (Pre[facility]Op [facility]) [address] [facility] [place], [address], 01/20/2024 17:40:07 01/20/20 24 01/20/2024 COMP METAB OLIC PANEL BUN 21 mg/dL 7-17 high Not Available [facility] (Pre-Op Clinic) [address] [facility] [place], [address], 01/20/2024 17:40:07 01/20/20 24 01/20/2024 COMP METAB OLIC PANEL creatinine 1.0 mg/dL 0.5-1. 5 Not Available [facility] (Pre-Op Clinic) [address] [facility] [place], [address], 01/20/2024 17:40:07 01/20/20 24 01/20/2024 COMP METAB OLIC PANEL BUN/creatini ne ratio 21 ratio 10-20 high Not Available [facility] (Pre-Op Clinic) [address] [facility] [place], [address], 01/20/2024 17:40:07 01/20/20 24 01/20/2024 COMP METAB OLIC PANEL glom filtration rate 62 mL/mi n >60- Not Available [facility] (Pre-Op Clinic) [address] [place] [address] [place], [address], 01/20/2024 17:40:07 01/20/20 24 01/20/2024 COMP METAB OLIC PANEL osmolality (calculated) 279 mosmo l/kg 275-30 1 OSMOL ALITY IS A CALCU LATIO N UTILI ZING THE SERUM /PLAS MA SODIU M, GLUCO SE AND UREA NITRO GEN (BUN) LEVEL S. FOR THE MOST ACCUR ATE RESUL T A MEASU RED SERUM OSMOL ALIVASYL IS NAVEED ANGELES. Not Available [facility] (Pre-Op [facility]) [address] [place] [address] [place], [address], 01/20/2024 17:40:07 01/20/20 24 01/20/2024 COMP METAB OLIC PANEL total protein 6.2 g/dL 6.2-8. 2 Not Available [facility] (Pre[facility]Op [facility]) [address] [place] [address] [place], [address], 01/20/2024 17:40:07 01/20/20 24 01/20/2024 COMP METAB OLIC PANEL albumin 3.6 g/dL 3.5-5. 0 Not Available [facility] (Pre[facility]Op [facility]) [address] [place] [address] [place], [address], 01/20/2024 17:40:07 01/20/20 24 01/20/2024 COMP METAB OLIC PANEL calcium 8.8 mg/dL 8.5-10 .8 Not Available [facility] (Pre-Op Clinic) [address] [place] [address] [place], [address], 01/20/2024 17:40:07 01/20/20 24 01/20/2024 COMP METAB OLIC PANEL bilirubin total 0.2 mg/dL 0.2-1. 3 Not Available [facility] (Pre-Op Clinic) [address] [place] [address] [place], [address], 01/20/2024 17:40:07 01/20/20 24 01/20/2024 COMP METAB OLIC PANEL AST (SGOT) 20 IU/L 14-36 Not Available [facility] (Pre-Op Clinic) [address] [place] [address] [place], [address], 01/20/2024 17:40:07 01/20/20 24 01/20/2024 COMP METAB OLIC PANEL ALT (SGPT) 8 IU/L 0-35 Pleas e note new refer ence inter elan for ALT. Due to a recen t manuf actur er sanchoo dolog y lockwood e, the refer ence inter elan for ALT is lower effec tive September 06, 2020. Not Available [facility] (Pre[facility]Op [facility]) [address] [place] [address] [place], [address], 01/20/2024 17:40:07 01/20/20 24 01/20/2024 COMP METAB OLIC PANEL alk phosphatase 117 IU/L 38-126 Not Available [facility] (Pre-Op Clinic) [address] [place] [address] [place], [address], 01/20/2024 17:40:07 01/20/20 24 01/20/2024 COMP METAB OLIC PANEL note Unles s other rosa noted testi ng perfo rmed at: [facility] [address] [place] [address] Rogelio caballero MD Not Available [facility] (Pre-Op [facility]) [address] [place] [address] [place], [address], 01/20/2024 17:40:07 01/20/20 24 01/20/2024 T4 FREE T4 free 1.07 NG/dL 0.78-2 .19 Not Available [facility] (Pre-Op Clinic) [address] [place] [address] [place], [address], 01/20/2024 17:54:34 01/20/20 24 01/20/2024 T4 FREE note Unles s other rosa noted testi ng perfo rmed at: [facility] [address] [place] [address] Rogelio caballero MD Not Available [facility] (Pre-Op [facility]) [address] [place] [address] [place], [address], 01/20/2024 17:54:34 01/20/20 24 01/20/2024 TSH thyroid stim hormone 0.86 uIU/m L 0.465- 4.68 Not Available [facility] (Pre[facility]Op [facility]) [address] [place] [address] [place], [address], 01/20/2024 18:09:51 01/20/20 24 01/20/2024 TSH note Unles s other rosa noted testi ng perfo rmed at: [facility] [address] [place] [address] Rogelio caballero MD Not Available [facility] (Pre-Op [facility]) [address] [place] [address] [place], [address], 01/20/2024 18:09:51 01/20/20 24 01/20/2024 VITAM IN B12 vitamin B12 >1000 pg/mL 239-93 1 high Not Available [facility] (Pre[facility]Op [facility]) [address] [place] [address] [place], [address], 01/20/2024 18:45:24 01/20/20 24 01/20/2024 VITAM IN B12 folate (folic acid), serum 2.8 NG/mL 2.76- Not Available [facility] (Pre-Op Clinic) [address] [place] [address] [place], [address], 01/20/2024 18:45:24 01/20/20 24 01/20/2024 VITAM IN B12 note Unles s other rosa noted testi ng perfo rmed at: [facility] [address] [place] [address] Rogelio caballero MD Not Available [facility] (Pre-Op [facility]) [address] [place] [address] [place], [address], 01/20/2024 18:45:24 03/28/20 24 03/28/2024 CBC AUTO W DIFF WBC 3.7 K/uL 4.0-10 .5 low Not Available [facility] ([facility]) [address], [place], [address], 03/28/2024 18:28:26 03/28/20 24 03/28/2024 CBC AUTO W DIFF RBC 3.1 M/mm3 4.2-6. 4 low Not Available [facility] ([facility]) [address] , [place], [address], 03/28/2024 18:28:26 03/28/20 24 03/28/2024 CBC AUTO W DIFF HGB 9.7 gm/dL 12.5-1 6.0 low Not Available [facility] ([facility]) [address] , [place], [address], 03/28/2024 18:28:26 03/28/20 24 03/28/2024 CBC AUTO W DIFF HCT 30.6 % 37.0-4 7.0 low Not Available [facility] ([facility]) [address] , [place], [address], 03/28/2024 18:28:26 03/28/20 24 03/28/2024 CBC AUTO W DIFF MCV 100.3 fL 78-100 high Not Available [facility] ([facility]) [address], [place], [address], 03/28/2024 18:28:26 03/28/20 24 03/28/2024 CBC AUTO W DIFF MCH 31.8 pg 27-31 high Not Available [facility] ([facility]) [address] , [place], [address], 03/28/2024 18:28:26 03/28/20 24 03/28/2024 CBC AUTO W DIFF MCHC 31.7 g/dL 32-36 low Not Available [facility] ([facility]) [address] [place], [address], 03/28/2024 18:28:26 03/28/20 24 03/28/2024 CBC AUTO W DIFF RDW 12.5 % 11.5-1 4.0 Not Available [facility] ([facility]) [address], [place], [address], 03/28/2024 18:28:26 03/28/20 24 03/28/2024 CBC AUTO W DIFF platelet count 134 K/uL 150-45 0 low Not Available [facility] ([facility]) [address] , [place], [address], 03/28/2024 18:28:26 03/28/20 24 03/28/2024 CBC AUTO W DIFF MPV 10.7 fL 6-9.5 high Not Available [facility] ([facility]) [address] , [place], [address], 03/28/2024 18:28:26 03/28/20 24 03/28/2024 CBC AUTO W DIFF neutrophil% 60.9 % 43-65 Not Available [facility] ([facility]) [address], [place], [address], 03/28/2024 18:28:26 03/28/20 24 03/28/2024 CBC AUTO W DIFF lymphocyte% 25.1 % 20.5-4 5.5 Not Available [facility] ([facility]) [address] , [place], [address], 03/28/2024 18:28:26 03/28/20 24 03/28/2024 CBC AUTO W DIFF monocyte% 8.1 % 5.5-11 .7 Not Available [facility] ([facility]) [address] [place], [address], 03/28/2024 18:28:26 03/28/20 24 03/28/2024 CBC AUTO W DIFF eosinophil% 5.4 % 0.9-2. 9 high Not Available [facility] ([facility]) [address], [place], [address], 03/28/2024 18:28:26 03/28/20 24 03/28/2024 CBC AUTO W DIFF basophil% 0.5 % 0.2-1. 0 Not Available [facility] ([facility]) [address], [place], [address], 03/28/2024 18:28:26 03/28/20 24 03/28/2024 CBC AUTO W DIFF immature granulocytes % 0.0 % 0.0-0. 8 Not Available [facility] ([facility]) [address], [place], [address], 03/28/2024 18:28:26 03/28/20 24 03/28/2024 CBC AUTO W DIFF nucleated red blood cells % 0.0 % Not Available [facility] ([facility]) [address], [place], [address], 03/28/2024 18:28:26 03/28/20 24 03/28/2024 CBC AUTO W DIFF neutrophil# 2.3 K/uL 2.2-4. 8 Not Available [facility] ([facility]) [address], [place], [address], 03/28/2024 18:28:26 03/28/20 24 03/28/2024 CBC AUTO W DIFF lymphocyte# 0.9 cell/ mcL 1.3-2. 9 low Not Available [facility] ([facility]) [address], [place], [address], 03/28/2024 18:28:26 03/28/20 24 03/28/2024 CBC AUTO W DIFF monocyte# 0.3 cell/ mcL 0.3-0. 8 Not Available [facility] ([facility]) [address] [place], [address], 03/28/2024 18:28:26 03/28/20 24 03/28/2024 CBC AUTO W DIFF eosinophil# 0.2 cell/ mcL 0-0.2 Not Available [facility] ([facility]) [address] [place], [address], 03/28/2024 18:28:26 03/28/20 24 03/28/2024 CBC AUTO W DIFF basophil# 0.0 cell/ mcL 0.0-1. 0 Not Available [facility] ([facility]) [address], [place], [address], 03/28/2024 18:28:26 03/28/20 24 03/28/2024 CBC AUTO W DIFF immature gramulocytes # 0.00 K/uL Not Available [facility] ([facility]) [address], [place], [address], 03/28/2024 18:28:26 03/28/20 24 03/28/2024 CBC AUTO W DIFF nucleated red blood cells # 0.00 K/uL Not Available [facility] ([facility]) [address], [place], [address], 03/28/2024 18:28:26 03/28/20 24 03/28/2024 CBC AUTO W DIFF manual differential NO Not Available [facility] ([facility]) [address], [place], [address], 03/28/2024 18:28:26 03/28/20 24 03/28/2024 IRON STUDY (IRON /TIBC /%SAT ) iron 54 mcg/m L 40-180 Not Available [facility] ([facility]) [address], [place], [address], 03/28/2024 18:44:10 03/28/20 24 03/28/2024 IRON STUDY (IRON /TIBC /%SAT ) TIBC 196 mcg/d L 250-45 0 low Not Available [facility] ([facility]) [address], [place], [address], 03/28/2024 18:44:10 03/28/20 24 03/28/2024 IRON STUDY (IRON /TIBC /%SAT ) %sat 28 15-55 Not Available [facility] ([facility]) [address] , [place], [address], 03/28/2024 18:44:10 03/28/20 24 03/28/2024 COMP METAB OLIC PANEL sodium 137 mmol/ L 136-14 5 Not Available [facility] ([facility]) [address] , [place], [address], 03/28/2024 18:46:16 03/28/20 24 03/28/2024 COMP METAB OLIC PANEL potassium 5.2 mmol/ L 3.6-5. 0 high Not Available [facility] ([facility]) [address] , [place], [address], 03/28/2024 18:46:16 03/28/20 24 03/28/2024 COMP METAB OLIC PANEL chloride 100 mmol/ L 98-107 Not Available [facility] ([facility]) [address] , [place], [address], 03/28/2024 18:46:16 03/28/20 24 03/28/2024 COMP METAB OLIC PANEL carbon dioxide 31.5 mmol/ L 21.0-3 2.0 Not Available [facility] ([facility]) [address] , [place], [address], 03/28/2024 18:46:16 03/28/20 24 03/28/2024 COMP METAB OLIC PANEL anion gap 10.7 Not Available [facility] ([facility]) [address] , [place], [address], 03/28/2024 18:46:16 03/28/20 24 03/28/2024 COMP METAB OLIC PANEL glucose 99 mg/dL 70-120 Not Available [facility] ([facility]) [address] [place], [address], 03/28/2024 18:46:16 03/28/20 24 03/28/2024 COMP METAB OLIC PANEL BUN 14 mg/dL 7-18 Not Available [facility] ([facility]) [address], [place], [address], 03/28/2024 18:46:16 03/28/20 24 03/28/2024 COMP METAB OLIC PANEL creatinine 1.0 mg/dL 0.6-1. 3 Not Available [facility] ([facility]) [address], [place], [address], 03/28/2024 18:46:16 03/28/20 24 03/28/2024 COMP METAB [...] lockwood ing kiney funct ion. Not Available [facility] ([facility]) [address], [place], [address], 03/28/2024 18:46:16 03/28/20 24 03/28/2024 COMP METAB OLIC PANEL total protein 6.8 g/dL 6.4-8. 2 Not Available [facility] ([facility]) [address], [place], [address], 03/28/2024 18:46:16 03/28/20 24 03/28/2024 COMP METAB OLIC PANEL albumin 3.1 g/dL 3.4-5. 0 low Not Available [facility] ([facility]) [address], [place], [address], 03/28/2024 18:46:16 11/11/03/28/2024 COMP METAB OLIC PANEL globulin 3.7 Not Available [facility] ([facility]) [address], [place], [address], 03/28/2024 18:46:16 03/28/20 24 03/28/2024 COMP METAB OLIC PANEL alb/glob ratio 0.8 0.7-2 Not Available [facility] ([facility]) [address] , [place], [address], 03/28/2024 18:46:16 03/28/20 24 03/28/2024 COMP METAB OLIC PANEL calcium 9.3 mg/dL 8.5-10 .5 Not Available [facility] ([facility]) [address] , [place], [address], 03/28/2024 18:46:16 03/28/20 24 03/28/2024 COMP METAB OLIC PANEL bilirubin total 0.30 mg/dL 0.10-1 .00 Not Available [facility] ([facility]) [address] , [place], [address], 03/28/2024 18:46:16 03/28/20 24 03/28/2024 COMP METAB OLIC PANEL AST (SGOT) 14 U/L 0-37 Not Available [facility] ([facility]) [address] , [place], [address], 03/28/2024 18:46:16 03/28/20 24 03/28/2024 COMP METAB OLIC PANEL ALT (SGPT) 14 U/L 0-65 Not Available [facility] ([facility]) [address] , [place], [address], 03/28/2024 18:46:16 03/28/20 24 03/28/2024 COMP METAB OLIC PANEL alk phosphatase 76 U/L 46-116 Not Available [facility] ([facility]) [address] , [place], [address], 03/28/2024 18:46:16 03/28/20 24 03/28/2024 THYRO ID STIMU LATIN G HORMO NE thyroid stim hormone 0.94 mIU/L 0.36-3 .74 Not Available [facility] ([facility]) [address], [place], [address], 03/28/2024 18:46:18 03/28/20 24 03/28/2024 T4 FREE T4 free 0.86 NG/dL 0.76-1 .46 Not Available [facility] ([facility]) [address], [place], [address], 03/28/2024 18:46:19 03/28/20 24 03/28/2024 LDH (LD) LDH 136 U/L 0-190 Not Available [facility] ([facility]) [address] [facility], [place], [address], 03/28/2024 18:46:20 03/28/20 24 03/28/2024 SAROJ TIN ferritin, serum 118 NG/mL 3-244 Not Available [facility] ([facility]) [address] [facility], [place], [address], 03/28/2024 18:46:22 03/28/20 24 03/28/2024 VITAM IN B12 vitamin B12 1304 pg/mL 193-98 6 high *Note : Refer shannon Loo. New Test Metho d in use. Not Available [facility] ([facility]) [address], [place], [address], 03/28/2024 19:08:36 03/28/20 24 03/28/2024 VITAM IN B12 folate (folic acid), serum 4.5 NG/mL 8.6-58 .9 low *Note : Refer shannon Loo. New Test Metho d in use. Not Available [facility] ([facility]) [address] [facility], [place], [address], 03/28/2024 19:08:36 03/28/20 24 03/29/2024 VITAM IN D, 25-HY DROXY vitamin D, 25-hydroxy 35.4 NG/mL 30.0-1 00.0 Not Available [facility] ([facility]) [address], [place], [address], 03/29/2024 01:53:12 03/28/20 24 03/30/2024 PTH, INTAC T PTH, intact 30 pg/mL 15-65 Perfo rmed at: - [facility] [address] [place] [address] Lab Direc tor: Sushil euceda PhD, Phone : [phone] Not Available [facility] ([facility]) [address], [place], [address], 03/30/2024 13:13:10 03/28/20 24 03/31/2024 IMMUN OFIXA TION, SERUM (CHE) IgA 208 mg/dL 87-352 Not Available [facility] ([facility]) [address] [facility], [place], [address], 04/01/2024 01:00:52 03/28/20 24 03/31/2024 IMMUN OFIXA TION, SERUM (CHE) IgM 70 mg/dL 26-217 Perfo rmed at: - [facility] n [address] [place] [address] Lab Direc tor: Sushil euceda PhD, Phone : [phone] Not Available [facility] ([facility]) [address] [place], [address], 04/01/2024 01:00:52 03/28/20 24 03/31/2024 IMMUN OFIXA TION, SERUM (CHE) IgG 1113 mg/dL 586-16 02 Not Available [facility] ([facility]) [address] [place], [address], 04/01/2024 01:00:52 03/28/20 24 03/31/2024 IMMUN OFIXA TION, SERUM (CHE) immunofixati on, serum (che) Commen t No monoc lonal ity detec conchis. Not Available [facility] ([facility]) [address] [facility], [place], [address], 04/01/2024 01:00:52 03/28/20 24 03/31/2024 ERYTH ROPOI ETIN QUANT erythropoiet in, serum 25.1 mIU/m L 2.6-18 .5 high Beckm an Coult er UniCe l DxI 800 Immun oassa y Syste m . Value s obtai romulo with diffe rent assay metho ds or kits canno t be used inter [facility] . Resul ts canno t be inter prete d as absol [place] evide nce of the prese nce or absen [facility]ola sinclair . Perfo rmed at: - [facility] [address] [place] [address] Lab Direc tor: Sushil euceda PhD, Phone : [phone] Not Available [facility] ([facility]) [address] [facility], [place], [address], 04/01/2024 01:00:53 03/28/20 24 04/02/2024 ZINC BLOOD zinc, plasma or serum 65 ug/dL 44-115 Speci men Comme nt: Test( s) 16638 0-Zin c, Plasm a or Serum Speci [...] Perfo rmed at: - [facility] Kareem herrera [address] [place] [address] Lab Direc tor: Christiana glez MD, Phone : [phone] Not Available [facility] ([facility]) [address] [facility], [place], [address], 04/02/2024 06:15:14 03/28/20 24 04/02/2024 COPPE R BLOOD copper, serum plasma 84 ug/dL 80-158 Speci men Comme nt: Test( s) 01335 6-Rotary Drum Tanner per, Serum or Plasm a Speci men Comme nt: was devel oped and its perfo rmanc e lisbet cte risti cs Speci men Comme nt: deter mined by [facility]. It has not been ashia ared or appro kaya Speci men Comme nt: by the Food and Drug Admin istra tion. Detec tion Limit = 5 Perfo rmed at: - [facility] [address] [address] Lab Direc tor: Christiana glez MD, Phone : [phone] Not Available [facility] ([facility]) [address] [facility], [place], [address], 04/02/2024 06:15:14 03/28/20 24 04/06/2024 METHY LMALO ORESTES ACID QUANT methylmaloni c acid, serum 362 nmol/ L 0-378 Speci men Comme nt: Test( s) 03059 7-Met hylma lonic Acid, Serum Speci men Comme nt: was devel oped and its perfo rmanc e lisbet cte risti cs Speci men Comme nt: deter mined by [facility]. It has not been ashia ared or appro kaya Speci men Comme nt: by the Food and Drug Admin istra tion. Perfo rmed at: [facility] Kareem herrera [address] [place] [address] Lab Direc tor: Christiana glez MD, Phone : [phone] Not Available [facility] ([facility]) [address] [facility], [place], [address], 04/06/2024 09:15:14 05/06/20 05/06/2024 CBC AUTO W DIFF WBC 3.4 K/uL 4.0-10 .5 low Not Available [facility] ([facility]) [address] , [place], [address], 05/06/2024 15:17:45 05/06/20 24 05/06/2024 CBC AUTO W DIFF RBC 3.4 M/mm3 4.2-6. 4 low Not Available [facility] ([facility]) [address] , [place], [address], 05/06/2024 15:17:45 05/06/20 24 05/06/2024 CBC AUTO W DIFF HGB 10.5 gm/dL 12.5-1 6.0 low Not Available [facility] ([facility]) [address], [place], [address], 05/06/2024 15:17:45 05/06/20 24 05/06/2024 CBC AUTO W DIFF HCT 32.7 % 37.0-4 7.0 low Not Available [facility] ([facility]) [address], [place], [address], 05/06/2024 15:17:45 05/06/20 24 05/06/2024 CBC AUTO W DIFF MCV 97.6 fL 78-100 Not Available [facility] ([facility]) [address] , [place], [address], 05/06/2024 15:17:45 05/06/20 24 05/06/2024 CBC AUTO W DIFF MCH 31.3 pg 27-31 high Not Available [facility] ([facility]) [address] [place], [address], 05/06/2024 15:17:45 05/06/20 24 05/06/2024 CBC AUTO W DIFF MCHC 32.1 g/dL 32-36 Not Available [facility] ([facility]) [address] [place], [address], 05/06/2024 15:17:45 05/06/20 24 05/06/2024 CBC AUTO W DIFF RDW 12.7 % 11.5-1 4.0 Not Available [facility] ([facility]) [address], [place], [address], 05/06/2024 15:17:45 05/06/20 24 05/06/2024 CBC AUTO W DIFF platelet count 129 K/uL 150-45 0 low Not Available [facility] ([facility]) [address], [place], [address], 05/06/2024 15:17:45 05/06/20 24 05/06/2024 CBC AUTO W DIFF MPV 10.3 fL 6-9.5 high Not Available [facility] ([facility]) [address], [place], [address], 05/06/2024 15:17:45 05/06/20 24 05/06/2024 CBC AUTO W DIFF neutrophil% 62.7 % 43-65 Not Available [facility] ([facility]) [address], [place], [address], 05/06/2024 15:17:45 05/06/20 24 05/06/2024 CBC AUTO W DIFF lymphocyte% 23.2 % 20.5-4 5.5 Not Available [facility] ([facility]) [address] [place], [address], 05/06/2024 15:17:45 05/06/20 24 05/06/2024 CBC AUTO W DIFF monocyte% 8.5 % 5.5-11 .7 Not Available [facility] ([facility]) [address], [place], [address], 05/06/2024 15:17:45 05/06/20 24 05/06/2024 CBC AUTO W DIFF eosinophil% 4.7 % 0.9-2. 9 high Not Available [facility] ([facility]) [address] [place], [address], 05/06/2024 15:17:45 05/06/20 24 05/06/2024 CBC AUTO W DIFF basophil% 0.6 % 0.2-1. 0 Not Available [facility] ([facility]) [address] [place], [address], 05/06/2024 15:17:45 05/06/20 24 05/06/2024 CBC AUTO W DIFF immature granulocytes % 0.3 % 0.0-0. 8 Not Available [facility] ([facility]) [address] [place], [address], 05/06/2024 15:17:45 05/06/20 24 05/06/2024 CBC AUTO W DIFF nucleated red blood cells % 0.0 % Not Available [facility] ([facility]) [address] [facility], [place], [address], 05/06/2024 15:17:45 05/06/20 24 05/06/2024 CBC AUTO W DIFF neutrophil# 2.1 K/uL 2.2-4. 8 low Not Available [facility] ([facility]) [address] [place], [address], 05/06/2024 15:17:45 05/06/20 24 05/06/2024 CBC AUTO W DIFF lymphocyte# 0.8 cell/ mcL 1.3-2. 9 low Not Available [facility] ([facility]) [address] [place], [address], 05/06/2024 15:17:45 05/06/20 24 05/06/2024 CBC AUTO W DIFF monocyte# 0.3 cell/ mcL 0.3-0. 8 Not Available [facility] ([facility]) [address] [place], [address], 05/06/2024 15:17:45 05/06/20 24 05/06/2024 CBC AUTO W DIFF eosinophil# 0.2 cell/ mcL 0-0.2 Not Available [facility] ([facility]) [address], [place], [address], 05/06/2024 15:17:45 05/06/20 24 05/06/2024 CBC AUTO W DIFF basophil# 0.0 cell/ mcL 0.0-1. 0 Not Available [facility] ([facility]) [address] , [place], [address], 05/06/2024 15:17:45 05/06/20 24 05/06/2024 CBC AUTO W DIFF immature gramulocytes # 0.01 K/uL Not Available [facility] ([facility]) [address], [place], [address], 05/06/2024 15:17:45 05/06/20 24 05/06/2024 CBC AUTO W DIFF nucleated red blood cells # 0.00 K/uL Not Available [facility] ([facility]) [address] , [place], [address], 05/06/2024 15:17:45 05/06/20 24 05/06/2024 CBC AUTO W DIFF manual differential NO Not Available [facility] ([facility]) [address] , [place], [address], 05/06/2024 15:17:45 06/22/19 25 06/22/2024 CBC AUTO W DIFF WBC 4.6 K/uL 4.0-10 .5 Not Available [facility] ([facility]) [address] , [place], [address], 06/22/2024 17:49:41 06/22/19 25 06/22/2024 CBC AUTO W DIFF RBC 3.6 M/mm3 4.2-6. 4 low Not Available [facility] ([facility]) [address], [place], [address], 06/22/2024 17:49:41 06/22/19 25 06/22/2024 CBC AUTO W DIFF HGB 11.2 gm/dL 12.5-1 6.0 low Not Available [facility] ([facility]) [address], [place], [address], 06/22/2024 17:49:41 06/22/19 25 06/22/2024 CBC AUTO W DIFF HCT 34.2 % 37.0-4 7.0 low Not Available [facility] ([facility]) [address], [place], [address], 06/22/2024 17:49:41 06/22/19 25 06/22/2024 CBC AUTO W DIFF MCV 95.8 fL 78-100 Not Available [facility] ([facility]) [address], [place], [address], 06/22/2024 17:49:41 06/22/19 25 06/22/2024 CBC AUTO W DIFF MCH 31.4 pg 27-31 high Not Available [facility] ([facility]) [address], [place], [address], 06/22/2024 17:49:41 06/22/19 25 06/22/2024 CBC AUTO W DIFF MCHC 32.7 g/dL 32-36 Not Available [facility] ([facility]) [address], [place], [address], 06/22/2024 17:49:41 06/22/19 25 06/22/2024 CBC AUTO W DIFF RDW 13.9 % 11.5-1 4.0 Not Available [facility] ([facility]) [address] [place], [address], 06/22/2024 17:49:41 06/22/19 25 06/22/2024 CBC AUTO W DIFF platelet count 158 K/uL 150-45 0 Not Available [facility] ([facility]) [address], [place], [address], 06/22/2024 17:49:41 06/22/19 25 06/22/2024 CBC AUTO W DIFF MPV 9.8 fL 6-9.5 high Not Available [facility] ([facility]) [address], [place], [address], 06/22/2024 17:49:41 06/22/19 25 06/22/2024 CBC AUTO W DIFF neutrophil% 55.1 % 43-65 Not Available [facility] ([facility]) [address] [facility], [place], [address], 06/22/2024 17:49:41 06/22/19 25 06/22/2024 CBC AUTO W DIFF lymphocyte% 29.4 % 20.5-4 5.5 Not Available [facility] ([facility]) [address] [facility], [place], [address], 06/22/2024 17:49:41 06/22/19 25 06/22/2024 CBC AUTO W DIFF monocyte% 7.8 % 5.5-11 .7 Not Available [facility] ([facility]) [address] [place], [address], 06/22/2024 17:49:41 06/22/19 25 06/22/2024 CBC AUTO W DIFF eosinophil% 6.8 % 0.9-2. 9 high Not Available [facility] ([facility]) [address] [place], [address], 06/22/2024 17:49:41 06/22/19 25 06/22/2024 CBC AUTO W DIFF basophil% 0.7 % 0.2-1. 0 Not Available [facility] ([facility]) [address], [place], [address], 06/22/2024 17:49:41 06/22/19 25 06/22/2024 CBC AUTO W DIFF immature granulocytes % 0.2 % 0.0-0. 8 Not Available [facility] ([facility]) [address], [place], [address], 06/22/2024 17:49:41 06/22/19 25 06/22/2024 CBC AUTO W DIFF nucleated red blood cells % 0.0 % Not Available [facility] ([facility]) [address] [facility], [place], [address], 06/22/2024 17:49:41 06/22/19 25 06/22/2024 CBC AUTO W DIFF neutrophil# 2.5 K/uL 2.2-4. 8 Not Available [facility] ([facility]) [address] [facility], [place], [address], 06/22/2024 17:49:41 06/22/19 25 06/22/2024 CBC AUTO W DIFF lymphocyte# 1.4 cell/ mcL 1.3-2. 9 Not Available [facility] ([facility]) [address] [facility], [place], [address], 06/22/2024 17:49:41 06/22/19 25 06/22/2024 CBC AUTO W DIFF monocyte# 0.4 cell/ mcL 0.3-0. 8 Not Available [facility] ([facility]) [address] [facility], [place], [address], 06/22/2024 17:49:41 06/22/19 25 06/22/2024 CBC AUTO W DIFF eosinophil# 0.3 cell/ mcL 0-0.2 high Not Available [facility] ([facility]) [address] [place], [address], 06/22/2024 17:49:41 06/22/19 25 06/22/2024 CBC AUTO W DIFF basophil# 0.0 cell/ mcL 0.0-1. 0 Not Available [facility] ([facility]) [address] [place], [address], 06/22/2024 17:49:41 06/22/19 25 06/22/2024 CBC AUTO W DIFF immature gramulocytes # 0.01 K/uL Not Available [facility] ([facility]) [address] [place], [address], 06/22/2024 17:49:41 06/22/19 25 06/22/2024 CBC AUTO W DIFF nucleated red blood cells # 0.00 K/uL Not Available [facility] ([facility]) [address] [facility], [place], [address], 06/22/2024 17:49:41 06/22/19 25 06/22/2024 CBC AUTO W DIFF manual differential NO Not Available [facility] ([facility]) [address] [place], [address], 06/22/2024 17:49:41 06/22/19 25 06/22/2024 IRON STUDY (IRON /TIBC /%SAT ) iron 44 mcg/m L 40-180 Not Available [facility] ([facility]) [address] [place], [address], 06/22/2024 18:43:25 06/22/19 25 06/22/2024 IRON STUDY (IRON /TIBC /%SAT ) TIBC 199 mcg/d L 250-45 0 low Not Available [facility] ([facility]) [address] [place], [address], 06/22/2024 18:43:25 06/22/19 25 06/22/2024 IRON STUDY (IRON /TIBC /%SAT ) %sat 22 15-55 Not Available [facility] ([facility]) [address] , [place], [address], 06/22/2024 18:43:25 06/22/19 25 06/22/2024 COMP METAB OLIC PANEL sodium 139 mmol/ L 136-14 5 Not Available [facility] ([facility]) [address] , [place], [address], 06/22/2024 18:56:02 06/22/19 25 06/22/2024 COMP METAB OLIC PANEL potassium 4.8 mmol/ L 3.6-5. 0 Not Available [facility] ([facility]) [address] , [place], [address], 06/22/2024 18:56:02 06/22/19 25 06/22/2024 COMP METAB OLIC PANEL chloride 103 mmol/ L 98-107 Not Available [facility] ([facility]) [address] , [place], [address], 06/22/2024 18:56:02 06/22/19 25 06/22/2024 COMP METAB OLIC PANEL carbon dioxide 28.1 mmol/ L 21.0-3 2.0 Not Available [facility] ([facility]) [address] , [place], [address], 06/22/2024 18:56:02 06/22/19 25 06/22/2024 COMP METAB OLIC PANEL anion gap 12.7 Not Available [facility] ([facility]) [address] , [place], [address], 06/22/2024 18:56:02 06/22/19 25 06/22/2024 COMP METAB OLIC PANEL glucose 77 mg/dL 70-120 Not Available [facility] ([facility]) [address] , [place], [address], 06/22/2024 18:56:02 06/22/19 25 06/22/2024 COMP METAB OLIC PANEL BUN 22 mg/dL 7-18 high Not Available [facility] ([facility]) [address], [place], [address], 06/22/2024 18:56:02 06/22/19 25 06/22/2024 COMP METAB OLIC PANEL creatinine 1.0 mg/dL 0.6-1. 3 Not Available [facility] ([facility]) [address] , [place], [address], 06/22/2024 18:56:02 06/22/19 25 06/22/2024 COMP METAB [...] lockwood ing kiney funct ion. Not Available [facility] ([facility]) [address] , [place], [address], 06/22/2024 18:56:02 06/22/19 25 06/22/2024 COMP METAB OLIC PANEL total protein 6.8 g/dL 6.4-8. 2 Not Available [facility] ([facility]) [address] , [place], [address], 06/22/2024 18:56:02 06/22/19 25 06/22/2024 COMP METAB OLIC PANEL albumin 3.3 g/dL 3.4-5. 0 low Not Available [facility] ([facility]) [address] , [place], [address], 06/22/2024 18:56:02 06/22/19 25 06/22/2024 COMP METAB OLIC PANEL globulin 3.5 Not Available [facility] ([facility]) [address], [place], [address], 06/22/2024 18:56:02 06/22/19 25 06/22/2024 COMP METAB OLIC PANEL alb/glob ratio 0.9 0.7-2 Not Available [facility] ([facility]) [address], [place], [address], 06/22/2024 18:56:02 06/22/19 25 06/22/2024 COMP METAB OLIC PANEL calcium 10.2 mg/dL 8.5-10 .5 Not Available [facility] ([facility]) [address], [place], [address], 06/22/2024 18:56:02 06/22/19 25 06/22/2024 COMP METAB OLIC PANEL bilirubin total 0.30 mg/dL 0.10-1 .00 Not Available [facility] ([facility]) [address], [place], [address], 06/22/2024 18:56:02 06/22/19 25 06/22/2024 COMP METAB OLIC PANEL AST (SGOT) 15 U/L 0-37 Not Available [facility] ([facility]) [address], [place], [address], 06/22/2024 18:56:02 06/22/19 25 06/22/2024 COMP METAB OLIC PANEL ALT (SGPT) 15 U/L 0-65 Not Available [facility] ([facility]) [address], [place], [address], 06/22/2024 18:56:02 06/22/19 25 06/22/2024 COMP METAB OLIC PANEL alk phosphatase 70 U/L 46-116 Not Available [facility] ([facility]) [address], [place], [address], 06/22/2024 18:56:02 06/22/19 25 06/22/2024 SAROJ TIN ferritin, serum 125 NG/mL 3-244 Not Available [facility] ([facility]) [address] [facility], [place], [address], 06/22/2024 18:56:04 06/22/19 25 06/22/2024 VITAM IN B12 vitamin B12 1807 pg/mL 193-98 6 high *Note : Refer sissye Nick elan Micky grant. New Test Metho d in use. Not Available [facility] ([facility]) [address] [facility], [place], [address], 06/22/2024 19:18:18 06/22/19 25 06/22/2024 VITAM IN B12 folate (folic acid), serum 105.6 NG/mL 8.6-58 .9 high *Note : Refer encJavier Lockwood e. New Test Metho d in use. Not Available [facility] ([facility]) [address] [facility], [place], [address], 06/22/2024 19:18:18 02/18/20 24 02/18/2024 MRI, brain , w/wo contr ast No observ ation record ed. [facility] [address], [place], [address], 02/19/2024 08:37:30 Result Notes None recorded. Procedures Surgical History Date Name Laterality Status Provider Name and Address Organization Details Recorded Time 10/13/19 25 Venipuncture cancelled Radhika Joseph PA-C [address] [facility], [place], [address], [facility] - [place] - [place] & [place] 09/30/2024 10:48:50 06/22/19 25 Venipuncture completed Katie MORALES - [place] & [place] 06/22/2024 15:17:52 09/16/19 22 Most Recent Bone Density completed Katie ECKERT - [facility] - [place] & [place] 01/20/2024 15:25:10 12/17/19 21 completed Katie MORALES [facility] & [place] 01/20/2024 15:25:10 12/17/19 21 Date of Last Colonoscopy completed Katie MORALES [facility] & [place] 01/20/2024 15:25:10 05/18/19 21 Other completed Katie MORALES [facility] & [place] 01/20/2024 15:25:11 05/18/19 17 Other completed Katie MORALES [facility] & [place] 01/20/2024 15:25:11 03/18/20 06 Date of Last Pap Smear completed Katie MORALES [facility] & [place] 01/20/2024 15:25:10 05/18/18 98 Other completed Katie MORALES [facility] & [place] 01/20/2024 15:25:11 Imaging Results None recorded. Procedure Notes None recorded. Medical Equipment None Reported. Allergies Allergen ID Allergen Name Allergen Category Reaction Reaction Severity Criticality Documentation Date Start Date Code Code System Note Provider Name and Address Organization Details Recorded Time [id number] Substance with sulfonami de structure and antibacte rial mechanism of action (substanc e) medicatio n Not available Not available Not available 03/28/2024 [id number] SNOMED [facility]KA [facility] [place] 4 14:32:03 Medications Name Sig Start Date [...] blood by Pulse oximetry Heart rate Systolic And Diastolic Provider Name and Address Organization Details Last Updated DateTime 5 157.48 cm 98.7 [degF] 89 % 89 % 89 /min 143/74 mm[Hg] Katie Alarcon [facility] & [place] 5 15:14:27 Date Recorded Body temperature Oxygen saturation Oxygen saturation in Arterial blood by Pulse oximetry Heart rate Systolic And Diastolic Provider Name and Address Organization Details Last Updated DateTime 4 97.8 [degF] 95 % 95 % 73 /min 110/70 mm[Hg] Katie Trejo [facility] & [place] 4 15:38:18 Date Recorded Body height Body mass index (BMI) Body weight Body temperature Heart rate Oxygen saturation Oxygen saturation in Arterial blood by Pulse oximetry Systolic And Diastolic Provider Name and Address Organization Details Last Updated DateTime 4 157.48 cm 31.6 kg/m2 55145.4 8 g 97.2 [degF] 76 /min 90 % 90 % 113/60 mm[Hg] Cherry Workman [facility] & [place] 4 14:35:44 Date Recorded Body height Body mass index (BMI) Body weight Body temperature Oxygen saturation Oxygen saturation in Arterial blood by Pulse oximetry Heart rate Systolic And Diastolic Provider Name and Address Organization Details Last Updated DateTime 4 157.48 cm 31.6 kg/m2 09472.4 8 g 97.4 [degF] 91 % 91 % 71 /min 109/56 mm[Hg] Cherry MORALES [facility] & [place] 4 14:29:12 Social History Question Answer Notes LastModified by [employer] Details LastModified Time Tobacco Smoking Status Never Smoker TOMEKA Prieto [facility] & [place] 01/20/2024 15:25:11 Do You Have An Advance Directive? No [email or web address] Information not available 01/20/2024 Are You Blind Or Do You Have Difficulty Seeing? Yes [email or web address] Information not available 01/20/2024 What Is Your Level Of Caffeine Consumption? Occasional Information not available 06/22/2024 What Was The Date Of Your Most Recent Tobacco Screening? 01/20/2024 [email or web address] Information not available 01/20/2024 Are You Passively Exposed To Smoke? No [email or web address] Information not available 01/20/2024 Has Tobacco Cessation Counseling Been Provided? No [email or web address] Information not available 06/22/2024 Sex: Unknown Functional Status Question Answer Note LastModified by [employer] Details LastModified Time Do you use any illicit or recreational drugs? No [email or web address] Information not available 01/20/2024 Do you or have you ever used any other forms of tobacco or nicotine? No [email or web address] Information not available 06/22/2024 What is your level of alcohol consumption? 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 None [email or web address] Information not available 01/20/2024 Mental Status Question Answer Note LastModified by Organization D etails LastModified Time Do you feel stressed (tense, restless, nervous, or anxious, or unable to sleep at night)? [id number] [email or web address] Information not available 01/20/2024 Family History Relationship [...] available 01/20/2024 12:17:25 Medical History Condition Response Anemia Y Spine Problems Y Diabetes Y Obesity Y Vision or Eye Problems Y Arthritis Y Back Problems Y Reflux/GERD Y High Cholesterol Y Rheumatoid Arthritis Y Gynecological History Statement/Question Response Abnormal Pap [...] Cherry Workman null, [place] - [facility] - [facility] 03/28/2024 14:31:48 Influenza, split virus, quadrivalent, preservative 8 completed Cherry Workman null, [place] [facility] - [place] & [place] 03/28/2024 14:31:48 Influenza, split virus, quadrivalent, preservative 9 completed Cherry Workman null, [place] [facility] [place] & [place] 03/28/2024 14:31:48 zoster recombinant 2 completed [place] Workman [place], [place] [facility] [place] 03/28/2024 14:31:48 zoster recombinant 1 completed [place] Workman [place], [place] [facility] [place] 03/28/2024 14:31:48 COVID-19, mRNA, LNP-S, PF, 30 mcg/0.3 mL dose 1 completed Cherry Workman null, [place] [facility] & [place] 03/28/2024 14:31:48 COVID-19, mRNA, LNP-S, PF, 30 mcg/0.3 mL dose 1 completed Cherry Leblanc null, [place] - [facility] - [place] & [place] 03/28/2024 14:31:48 Pneumococcal conjugate PCV20, polysaccharide [id number] conjugate, adjuvant, PF 3 completed Cherry Leblanc null, [place] - [facility] - [place] & [place] 03/28/2024 14:31:48 RSV, recombinant, protein subunit RSVpreF, adjuvant reconstituted, 0.5 mL, PF 3 completed Cherry hull, [place] - [facility] - [place] & [place] 03/28/2024 14:31:48 COVID-19, mRNA, LNP-S, PF, 50 mcg/0.5 mL 3 completed Cherry hull, [place] - LPBERNADETTE [facility] & [place] 03/28/2024 14:31:48 pneumococcal polysaccharide PPV23 7 completed Cherry Leblanc null, [place] - [facility] & [place] 03/28/2024 14:31:48 Pneumococcal conjugate PCV 13 8 completed Cherry hull, [place] - [facility] & [place] 03/28/2024 14:31:48 Influenza, split virus, quadrivalent, PF 1 completed Cherry hull, [place] - [facility] & [place] 03/28/2024 14:31:48 Past Encounters Encounter ID Performer Location Encounter Start Date Encounter Closed Date Diagnosis/Indication Diagnosis SNOMED-CT Code Diagnosis ICD10 Code Diagnosis Note [id number] Prudencio Thornton M.D [facility] Neurology [address],[facility] [address] [place] [address] 01/20/2024 15:02:48 01/20/2024 16:12:15 Moderate cognitive impairment 340744121 R41.9 Abnormal gait 80479634 R 26.9 Chronic pain syndrome 37 7512952 G89.4 [id number] Panda Jimenes MD [facility] Oncology and Hematolog y [address] [place] [address] 03/28/2024 14:12:10 03/28/2024 15:22:54 Leukopenia 82576790 D72.819 Labs on March 12, 2024 with normal serum electrolyt es. Creatinine 0.7. GFR greater than 60. Normal liver function tests. Normal serum calcium at 9.3. Total protein 6.3 and albumin 2.7. SPEP performed with no evidence of monoclonal spike. White blood cell count 2.5. Red blood cell count 3.28. Hemoglobin 11.7 and hematocrit 32.5. MCV 99.1. Platelet count 18504. On differenti al appropriat e percentage s [...] greater than 60. Iron defic iency anemia 80223761 D50.9 Low serum iron saturation while in the hospital. Patient previously with treatments with IV iron. Will likely repeat infusional iron therapy. Thrombocyt openic disorder 550325146 D69.6 Mild drop in platelet count. At the time of hospital stay patient was receiving antibiotic s. Will follow-up repeat labs. Patient also on Lyrica as well as Lasix. Possible medication impact. Will follow-up Hypercalcemia 75661821 E 83.52 SPEP without evidence monoclonal protein. Low albumin and total protein on labs. Will follow-up immunofixa tion. Patient was previously on calcium supplement . Patient also taking Lasix which usually decreases serum calcium. Will follow up additional labs. [id number] Panda Jimenes MD [facility] Oncology and Hematolog y [address] [facility] [address] [place] [address] 04/25/2024 14:09:26 04/25/2024 15:12:46 Leukopenia 55447956 D72.819 Labs on March 12, 2024 with normal serum electrolyt es. Creatinine 0.7. GFR greater than 60. Normal liver function tests. Normal serum calcium at 9.3. Total protein 6.3 and albumin 2.7. SPEP performed with no evidence of monoclonal spike. White blood cell count 2.5. Red blood cell count 3.28. Hemoglobin 11.7 and hematocrit 32.5. MCV 99.1. Platelet count 38644. On differenti al appropriat e percentage s [...] and hematocrit 30.6. MCV 100.3. Platelet count 671815. Overall improvemen t in white blood cell count on labs from March 28, 2024. Improvemen t in platelet count. Patient started on folic acid supplement ation as well as continuing on p.o. iron supplement ation. Patient returns on April 25, 2024. Repeating iron studies today. Will follow-up CBC. Iron defic iency anemia 04488219 D50.9 Low serum iron saturation while in [...] and hematocrit 30.6. MCV 100.3. Platelet count 926338. Patient started iron infusions on April 25, 2024. Will follow-up repeat labs in a few weeks. Thrombocyt openic disorder 045698998 D69.6 Mild drop in platelet count. At [...] and hematocrit 30.6. MCV 100.3. Platelet count 060262. Overall improvemen t in white blood cell count on labs from March 28, 2024. Improvemen t in platelet count. [id number] Radhika Joseph PA-C [facility] Oncology and Hematolog y [address] [facility] [address] [place] [address] 06/22/2024 14:25:37 06/22/2024 15:32:09 Leukopenia 49655392 D72.819 Labs on March 12, 2024 with normal serum electrolyt es. Creatinine 0.7. GFR greater than 60. Normal liver function tests. Normal serum calcium at 9.3. Total protein 6.3 and albumin 2.7. SPEP performed with no evidence of monoclonal spike. White blood cell count 2.5. Red blood cell count 3.28. Hemoglobin 11.7 and hematocrit 32.5. MCV 99.1. Platelet count 97629. On differenti al appropriat e percentage s [...] and hematocrit 30.6. MCV 100.3. Platelet count 836118. Labs on May 06, 2024 with white blood cell count 3.4. Red blood cell count 3.4. Hemoglobin 10.5 and hematocrit 32.7. Platelet count 483199. Slight improvemen t in hemoglobin compared to March 28, 2024. Folic acid repletion since last clinic visit. Will follow-up repeat labs today on June 22, 2023. Stable platelet count compared to March 2024. Will follow-up labs today. Iron defic iency anemia 54154432 D50.9 Low serum iron saturation while in [...] and hematocrit 30.6. MCV 100.3. Platelet count 290630. Patient started iron infusions on April 25, 2024. Will follow-up repeat labs today. Thrombocyt openic disorder 188433962 D69.6 Mild drop in platelet count. At [...] and hematocrit 30.6. MCV 100.3. Platelet count 405993. Labs on May 06, 2024 with white blood cell count 3.4. Red blood cell count 3.4. Hemoglobin 10.5 and hematocrit 32.7. Platelet count 819501. Slight improvemen t in hemoglobin compared to March 28, 2024. Folic acid repletion since last clinic visit. Will follow-up repeat labs today on June 22, 2023. Stable platelet count compared to March 2024. Will follow-up labs today. Family his tory of breast cancer 272052033 Z80.3 Patient mentions 1 sister had breast [...] his tory of malignant neoplasm of pancreas 991445048 Z80.0 Patient mentions 1 sister had breast cancer and another sister had pancreatic cancer. Discussed genetic testing due to family history of malignancy . Patient declined. Fatigue 76468819 R53.83 Patient has chronic fatigue. Will follow [...] [employer] (MEDICARE REPLACEMENT/ ADVANTAGE - PPO) Sherita Carroll Gary [id number] Luiza Vega 06/22/2024 2 MEDIC[place] ([place]ICARE[place] Luiza Vega [id number] Luiza Vega Notes Date Note Type [...] pain pump managed by Pain Management since 2017. She has numbness.She has also been having worsening cognitive impairment. She often forgets recent names, appointments, events, and conversations. This has significantly worsened over the past year.She saw a neurologist in [place] but did not have any testing done. Prudencio Thornton M.D [address] [place] [address], [address], [place], [address], [facility] & [place] 01/20/2024 16:08:18 03/28/2024 text/html 68 yo F presents for evaluation of pancytopenia. Patient recently hospitalized in [facility] from March 11, 2024 until March [...] and hematocrit 32.5. MCV 99.1. Platelet count 21401. On differential appropriate percentages of blood Cell [...] at 11.1. GFR greater than 60. Panda Jiemnes MD [address], [place], [address], [place] [facility] [place] & [place] 03/28/2024 17:28:19 04/25/2024 text/html 68 yo F returns for evaluation of leukopenia and anemia. Patient recently hospitalized in [facility] from March 11, 2024 until March [...] and hematocrit 32.5. MCV 99.1. Platelet count 44876. On differential appropriate percentages of blood Cell [...] and hematocrit 30.6. MCV 100.3. Platelet count 873159. Overall improvement in white blood cell count on labs from March 28, 2024. Improvement in platelet count. Patient started on folic acid supplementation as well as continuing on p.o. iron supplementation. Patient returns on April 25, 2024. Repeating iron studies today. Will follow-up CBC. Panda Jimenes MD [address], [place], [address], [place] [facility] [place] & [place] 04/25/2024 15:16:44 06/22/2024 text/html 69 yo F returns for evaluation of leukopenia and anemia. Patient recently hospitalized in [facility] from March 11, 2024 until March [...] and hematocrit 32.5. MCV 99.1. Platelet count 63621. On differential appropriate percentages of blood Cell [...] and hematocrit 30.6. MCV 100.3. Platelet count 590758. Overall improvement in white blood cell count on labs from March 28, 2024. Improvement in platelet count. Patient started on folic acid supplementation as well as continuing on p.o. iron supplementation. Labs on May 06, 2024 with white blood cell count 3.4. Red blood cell count 3.4. Hemoglobin 10.5 and hematocrit 32.7. Platelet count 634051. Slight improvement in hemoglobin compared to March [...] follow up labs today. Radhika Joseph PA-C [address], [place], [address], [place] [facility] [place] & [place] 06/22/2024 16:02:16 OBGyn Episode No OBEpisode recorded.
--- OUTSIDE RECORDS SUMMARY | 2024-12-02 12:54 | XMS_ITS | Clinical Summary ---
Author Organization [employer] ([place], [place], [place], [place]) Address [address] [place] [address] Care Team Providers Care Reed Polisher Name Role Phone Anni Candelaria Primary Care Provider [phone] Allergies Active Allergy Reactions Criticality Noted Date [...] times daily with breakfast and dinner. Active [id number] -DPA-fish oil 1,050-1,200 mg Cap per capsule [...] Date Lino rded Speak language other than Icelandic at home Not on file 08/04/2023 Want [...] 11/01/2020 Falls Risk Screening 05/18/2024 Influenza Vaccine (#1) 2025 Respiratory Syncytial Virus (RSV) Adult or (1 - 1-dose 75+ series) 2031 Shingles Vaccine (Zoster) Completed 08/01/2021, 09/2020 Pneumococcal 50+ years Completed , 04/29/2018, 03/03/2017 Insurance [employer] MEDICARE PPO Care Teams Reed Polisher Relationship Specialty Start Date End Date Anni Candelaria PA [address] [place] [address] PCP - General Physician Department Head 08/06/23
--- NOTE | 2024-12-02 13:08 | ECG_ITS ---
APPROVED REPORT Exam: Resting ECG HR:108 bpm ECG Measurements Heart Rate 108 AXES VT 160 P 36 QRSd 69 QRS 1 QT 292 T 56 QTc 356 Conclusion SINUS TACHYCARDIA POSSIBLE ANTERIOR MYOCARDIAL INFARCTION , PROBABLY OLD [30 ms Q WAVE IN V3/V4, OR R < 0.2 mV IN V4] ABNORMAL RHYTHM ECG UNCONFIRMED REPORT Sinus tachycardia. T wave inversions in V2 that are nonspecific. No ST elevation or depression. Electronically signed by : MAIRA TAYLOR, 12/03/2024 07:38:02
[2024-12-02] MEDS: ONDANSETRON 4MG/2ML VIAL 4 MG IV (13:25)
[2024-12-02] MEDS: MORPHINE 2MG/ML SYRINGE 2 MG IV (13:25)
[2024-12-02 13:32] LABS: VBG HCO3 18.6 mmol/L (23-30); VBG PCO2 46.5 mmol/L (35-51); VBG PH 7.22 mmol/L (7.31-7.41); VBG PO2 38.6 mmol/L (28-40)
[2024-12-02 13:33] LABS: Hematocrit 42.0 % (37.0-47.0); Hemoglobin 12.9 g/dL (12.2-16.2); Immature Granulocytes % 0.2 %; Lactate Venous 2.3 mmol/L (0.4-2.0); Mean Corpuscular HGB Conc 30.7 g/dL (31.8-35.4); Mean Corpuscular Hemoglobin 30.3 pg (27.0-31.2); Mean Corpuscular Volume 98.6 fl (81-99); Nucleated Red Blood Cells % 0 %; Platelet Count 193 K/mm3 (142-424); Red Blood Count 4.26 M/mm3 (4.20-5.40); Red Cell Distribution Width-SD 49.9 fL; White Blood Count 4.7 K/mm3 (4.8-10.8)
[2024-12-02 13:35] LABS: Chloride 106 mmol/L (98-107)
[2024-12-02 13:36] LABS: Albumin Level 3.9 g/dl (3.5-5.0); Potassium 4.1 mmoL/L (3.5-5.1); Sodium 137 mmol/L (136-145)
[2024-12-02 13:38] LABS: Anion Gap 11.1 mEq/L (5-15); Blood Urea Nitrogen 19 mg/dl (7-17); Carbon Dioxide 24 mmol/L (22.0-30.0); Creatinine Clearance Estimated 67 mL/min (50-200); Creatinine,Serum 0.90 mg/dl (0.52-1.04); Estimated Glomerular Filt Rate 62 ml/min (>60); GFR (African American) 75 ML/MIN (>60)
[2024-12-02 13:39] LABS: Alanine Aminotransferase 16 U/L (12-78); Albumin/Globulin Ratio 1.1 (1.1-1.8); Alkaline Phosphatase 72 U/L (38-126); Aspartate Amino Transferase 30 U/L (14-36); Bilirubin,Total 0.5 mg/dl (0.2-1.3); Calcium 11.3 mg/dl (8.4-10.2); Globulin 3.7 g/dL (1.3-3.2); Glucose 124 mg/dl (74-100); Magnesium 1.7 mg/dl (1.6-2.3); Total Protein,Serum 7.6 g/dl (6.3-8.2)
[2024-12-02 13:40] LABS: Lipase 858 U/L (23-300)
[2024-12-02 13:44] LABS: C-Reactive Protein 19.1 mg/L (0-4)
[2024-12-02 13:54] LABS: Troponin I < 0.01 ng/ml (0.00-0.034)
[2024-12-02] MEDS: LACTATED RINGERS 1000ML 500 ML 250 ML IV (13:58)
[2024-12-02] MEDS: SODIUM CHLORIDE 0.9% 10ML SYR (RAD ONLY) 10 ML IV (14:07)
[2024-12-02] MEDS: 0.9 % SODIUM CHLORIDE 50 ML VIAL IV (14:07)
[2024-12-02] MEDS: IOPAMIDOL-370 (76%);100ML BOTTLE 85 ML IV (14:07)
--- NOTE | 2024-12-02 15:18 | PC.NURSE ---
I spoke with radiology, they state her CT is locked and currently being read.
[2024-12-02 15:42] LABS: Microscopic, Urine URINE MICROSCOPIC (MICROSCOPIC)
[2024-12-02 15:47] LABS: Bilirubin,Urine Negative (Negative); Color,Urine YELLOW (Yellow); Glucose,Urine (UA) Negative (Negative); Ketones,Urine Negative (Negative); Leukocyte Esterase,Urine Negative (Negative); PH,Urine 5.5 (5.0-8.5); Protein,Urine 1+ (Negative); Specific Gravity, Urine 1.020 (1.005-1.030); Urobilinogen,Urine 0.2 EU/dl (0.2)
--- NOTE | 2024-12-02 16:18 | PC.NURSE ---
Dr.Mulberry parker for
[2024-12-02 16:22] LABS: Bacteria,Urine 1+ /lpf; RBC,Urine 20-50 #/hpf (0-3); Squamous Epithelial Cell,Urine Occasional #/hpf (0-5)
--- NOTE | 2024-12-02 16:22 | EXP.GEN.HP ---
HPI HPI HPI: Patient is a 69-year-old significantly chronically debilitated essentially nonambulatory female from [facility] with history of osteoarthritis and degenerative disc disease. She is on diclofenac, meloxicam, Lyrica, tramadol, and hydromorphone via intrathecal pain pump. She had acute onset of abdominal pain with associated nausea earlier today on 12/02/2024. She was brought to the emergency department via EMS at which time she was found to have guarding in the epigastrium. Laboratory evaluation significant for elevated C-reactive protein of 19, lactate 2.3, white blood cell count 4700, lipase 858. She underwent CT scan which revealed minimal pneumoperitoneum with thickening of the distal stomach and duodenal bulb. She did have significant distention of the gallbladder with mild biliary ductal dilatation but no gallstones. Surgical consultation was obtained. [facility] Disclaimer: The information contained in this section may have been updated after the patient was seen, as this information can be updated by other users. Medical History Anemia Arthritis Asthma Cervical (neck) region somatic dysfunction Chronic pain Degenerated intervertebral disc Depression Fibromyalgia History of renal dialysis History of TB (tuberculosis) Iron deficiency anemia Peptic ulcer disease Type 2 diabetes mellitus Surgical History History of cervical spinal surgery History of colonoscopy History of esophagogastroduodenoscopy (EGD) Family History Other Cancer Coronary artery disease Diabetes Hypertension Social History Smoking Status: Never smoker second hand exposure: No alcohol intake: never substance use type: denies use current occupational status: other Travel in the last 8 weeks?: None household members: none housing: house current occupational exposures/hazards: No caffeine: Yes Have you lived/traveled outside US in past 30 days?: No Contact w/someone who lives/traveled outside US past 30 days?: No Exposure to someone with infectious disease in past 14 days?: No Do you have a fever (greater than 100.4 F or 38 C)?: No Have you tested positive for COVID-19?: No Exposed to someone with COVID-19 in past 14 days?: No Do you have a sore throat?: No Do you have a cough?: No Do you have any weakness?: No Do you have any diarrhea?: No Are you experiencing any unusual bleeding?: No Do you have any muscle aches/pain?: No Do you have any abdominal pain?: Yes Are you experiencing loss of taste or smell?: No Other Medical History Have you received the Flu Vaccine for this season: Yes Have you received the Pneumonia Vaccine: Yes Meds Home Medications and Allergies Home Medications ?Medication ?Instructions ?Recorded ?Confirmed ?Type duloxetine 60 mg capsule,delayed 120 mg PO DAILY Depression 09/09/17 11/10/24 History release vit E 12 mg-vit E mix 50 2 each PO DIRECTED Supplement 03/04/21 11/10/24 History mg-squalene 6.6 mg-phytosterol 3.3 mg capsule diclofenac sodium 20 2 pump topical BID Pain 12/26/21 11/10/24 History mg/gram/actuation (2 %) topical soln metered-dose pump hydromorphone (PF) 1 mg/mL in 0.9% 0.5 mg intrathecal CONT CHRONIC 12/26/21 11/10/24 History sodium chloride intravenous syringe PAIN ropinirole 2 mg tablet 2 mg PO HSP PRN RESTLESS LEGS 03/20/22 11/10/24 History ascorbic acid (vitamin C) 500 mg 500 mg PO QID Supplement 04/29/22 11/10/24 History tablet (Vitamin C) ergocalciferol (vitamin D2) 1,250 50,000 unit PO WEEKLY Supplement 04/29/22 11/10/24 History mcg (50,000 unit) capsule zinc sulfate 50 mg zinc (220 mg) 220 mg PO DAILY Supplement 04/29/22 11/10/24 History capsule pramipexole 1.5 mg tablet 1.5 mg PO HS . 08/05/22 11/10/24 History ondansetron 4 mg disintegrating 4 mg PO Q8H PRN nausea and 12/13/22 11/10/24 Rx tablet vomiting 4 days #12 tabs meloxicam 15 mg tablet 15 mg PO DAILY 03/03/23 11/10/24 History tramadol 50 mg tablet 50 mg PO BID #60 tabs 09/20/24 11/10/24 Rx pregabalin 100 mg capsule (Lyrica) 100 mg PO QID Pain #120 caps 10/17/24 11/10/24 Rx New Prescriptions to Start Prescriptions: Allergies Allergy/AdvReac Type Severity Reaction Status Date / Time Sulfa (Sulfonamide Allergy Unknown NA-NAUSEA/V Verified 08/26/24 14:06 Antibiotics) (SULFA OMITING (SULFONAMIDE ANTIBIOTICS)) Exam Data for Last 24 hours Vital signs and Labs for Last 24 Hours: Temp Pulse Resp BP Pulse Ox O2 Del Method O2 Flow Rate 98.5 F 96 H 18 121/77 96 Nasal Cannula 5 12/02/24 12:44 12/02/24 13:01 12/02/24 13:01 12/02/24 13:01 12/02/24 13:01 12/02/24 12:44 12/02/24 12:44 Laboratory Results - last 24 hr 12/02/24 13:11: WBC 4.7 L, RBC 4.26, Hgb 12.9, Hct 42.0, MCV 98.6, MCH 30.3, MCHC 30.7 L, RDW 13.8, Plt Count 193, MPV 9.3, Neut % (Auto) 79.4, Lymph % (Auto) 11.9, Sac % (Auto) 8.1, Eos % (Auto) 0.4, Baso % (Auto) 0.0 L, Neut # (Auto) 3.7, Lymph # (Auto) 0.6 L, Sac # (Auto) 0.4, Eos # (Auto) 0.0, Baso # (Auto) 0.0, VBG pH 7.22 L, VBG pCO2 46.5, VBG pO2 38.6, VBG HCO3 18.6 L, VBG Total CO2 20.0 L, VBG O2 Saturation 69.9, VBG Base Excess -9.2 L, VBG Lactic Acid 2.3 H, Sodium 137, Potassium 4.1, Chloride 106, Carbon Dioxide 24, Anion Gap 11.1, BUN 19 H, Creatinine 0.90, Estimated Creat Clear 67, Estimated GFR 62, Est GFR ( Amer) 75, Glucose 124 H, Calcium 11.3 H, Magnesium 1.7, Total Bilirubin 0.5, AST 30, ALT 16, Alkaline Phosphatase 72, Troponin I < 0.01, C-Reactive Protein 19.1 H, Total Protein 7.6, Albumin 3.9, Globulin 3.7 H, Albumin/Globulin Ratio 1.1, Lipase 858 H 12/02/24 15:30: Urine Color Yellow, Urine Appearance Clear, Urine pH 5.5, Ur Specific [place] 1.020, Urine Protein 1+ A, Urine Glucose (UA) Negative, Urine Ketones Negative, Urine Blood 1+ A, Urine Nitrate Negative, Urine Bilirubin Negative, Urine Urobilinogen 0.2, Ur Leukocyte Esterase Negative I & O for Last 24 hours: Intake & Output 11/30/24 12/01/24 12/02/24 12/03/24 11:59 11:59 11:59 11:59 Weight 173 lb Constitutional Constitutional: moderate distress and chronically ill appearing *Routine HEENT Exam Head: Present normocephalic Eye: Present EOMI ENT: Present mucous membranes dry *Routine Respiratory Exam Respiratory: Present decreased breath sounds *Routine Cardiovascular Exam Cardiovascular: Present RRR and tachycardia *Routine Abdominal Exam Abdominal: Present tenderness, distended, rebound and guarding *Routine Rectal Exam Rectal:: deferred *Routine Genitalia Exam Genitalia:: deferred Results Results Lab Results Last 24 Hours:: Laboratory Results - last 24 hr 12/02/24 13:11: WBC 4.7 L, RBC 4.26, Hgb 12.9, Hct 42.0, MCV 98.6, MCH 30.3, MCHC 30.7 L, RDW 13.8, Plt Count 193, MPV 9.3, Neut % (Auto) 79.4, Lymph % (Auto) 11.9, Sac % (Auto) 8.1, Eos % (Auto) 0.4, Baso % (Auto) 0.0 L, Neut # (Auto) 3.7, Lymph # (Auto) 0.6 L, Sac # (Auto) 0.4, Eos # (Auto) 0.0, Baso # (Auto) 0.0, VBG pH 7.22 L, VBG pCO2 46.5, VBG pO2 38.6, VBG HCO3 18.6 L, VBG Total CO2 20.0 L, VBG O2 Saturation 69.9, VBG Base Excess -9.2 L, VBG Lactic Acid 2.3 H, Sodium 137, Potassium 4.1, Chloride 106, Carbon Dioxide 24, Anion Gap 11.1, BUN 19 H, Creatinine 0.90, Estimated Creat Clear 67, Estimated GFR 62, Est GFR ( Amer) 75, Glucose 124 H, Calcium 11.3 H, Magnesium 1.7, Total Bilirubin 0.5, AST 30, ALT 16, Alkaline Phosphatase 72, Troponin I < 0.01, C-Reactive Protein 19.1 H, Total Protein 7.6, Albumin 3.9, Globulin 3.7 H, Albumin/Globulin Ratio 1.1, Lipase 858 H 12/02/24 15:30: Urine Color Yellow, Urine Appearance Clear, Urine pH 5.5, Ur Specific [place] 1.020, Urine Protein 1+ A, Urine Glucose (UA) Negative, Urine Ketones Negative, Urine Blood 1+ A, Urine Nitrate Negative, Urine Bilirubin Negative, Urine Urobilinogen 0.2, Ur Leukocyte Esterase Negative Assessment and Plan *Assessment and plan (1) Perforated bowel: Status: Acute Category: Medical Code(s): K63.1 - Perforation of intestine (nontraumatic) Plan I reviewed her CT scan. She has appreciable amount of intra-abdominal fluid with stranding around the antrum and duodenum and some pneumoperitoneum above the liver. This is most concerning for perforated ulcer. Plan will be for emergent exploratory laparotomy likely with Aris patch repair. Due to the patient's significantly debilitated state and chronic medical conditions her morbidity and perioperative mortality is notable. Family understands this.
[2024-12-02 16:23] LABS: Mucus,Urine 1+ /lpf
--- NOTE | 2024-12-02 16:29 | PC.NURSE ---
Dr. Contreras at bedside
--- NOTE | 2024-12-02 16:55 | EXP.ACUTE.PN ---
Subjective *Date: 12/02/24 *Time: 17:27 Interval history: Patient was seen by Dr. Jacob and I in the ER. She is c/o pain in the abdomen radiating to the back. She was seen by surgery. See H&P. Medical Exam Vital signs and Labs for Last 24 Hours: Vital Signs Temp Pulse Pulse Resp BP BP Pulse Ox 12/02/24 16:30 125 H 20 85/51 L 99 12/02/24 16:00 120 H 18 99/60 L 98 12/02/24 15:30 118 H 18 115/64 97 12/02/24 14:30 108 H 18 134/71 96 12/02/24 13:30 107 H 18 134/75 95 12/02/24 13:01 96 H 18 121/77 96 12/02/24 12:44 98.5 F 113 H 16 112/77 93 L O2 Del Method O2 Flow Rate 12/02/24 16:30 12/02/24 16:00 12/02/24 15:30 12/02/24 14:30 12/02/24 13:30 12/02/24 13:01 12/02/24 12:44 Nasal Cannula 5 Intake and Output 12/02/24 12/02/24 12/02/24 03:59 11:59 19:59 Other: Weight 173 lb Patient Weight 12/03/24 11:59 Weight 173 lb Laboratory Results - last 24 hr 12/02/24 13:11: WBC 4.7 L, RBC 4.26, Hgb 12.9, Hct 42.0, MCV 98.6, MCH 30.3, MCHC 30.7 L, RDW 13.8, Plt Count 193, MPV 9.3, Neut % (Auto) 79.4, Lymph % (Auto) 11.9, [place] % (Auto) 8.1, Eos % (Auto) 0.4, Baso % (Auto) 0.0 L, Neut # (Auto) 3.7, Lymph # (Auto) 0.6 L, [place] # (Auto) 0.4, Eos # (Auto) 0.0, Baso # (Auto) 0.0, VBG pH 7.22 L, VBG pCO2 46.5, VBG pO2 38.6, VBG HCO3 18.6 L, VBG Total CO2 20.0 L, VBG O2 Saturation 69.9, VBG Base Excess -9.2 L, VBG Lactic Acid 2.3 H, Sodium 137, Potassium 4.1, Chloride 106, Carbon Dioxide 24, Anion Gap 11.1, BUN 19 H, Creatinine 0.90, Estimated Creat Clear 67, Estimated GFR 62, Est GFR ( Amer) 75, Glucose 124 H, Calcium 11.3 H, Magnesium 1.7, Total Bilirubin 0.5, AST 30, ALT 16, Alkaline Phosphatase 72, Troponin I < 0.01, C-Reactive Protein 19.1 H, Total Protein 7.6, Albumin 3.9, Globulin 3.7 H, Albumin/Globulin Ratio 1.1, Lipase 858 H 12/02/24 15:30: Urine Color Yellow, Urine Appearance Clear, Urine pH 5.5, Ur Specific [place] 1.020, Urine Protein 1+ A, Urine Glucose (UA) Negative, Urine Ketones Negative, Urine Blood 1+ A, Urine Nitrate Negative, Urine Bilirubin Negative, Urine Urobilinogen 0.2, Ur Leukocyte Esterase Negative, Urine RBC 20-50, Urine WBC 5-10, Ur Squamous Epith Cells Occasional, Urine Bacteria 1+, Hyaline Casts 3-5, Urine Mucus 1+ I & O for Labs for Last 24 Hours: Intake & Output 11/30/24 12/01/24 12/02/24 12/03/24 11:59 11:59 11:59 11:59 Weight 173 lb Constitutional: Present moderate distress Respiratory: Present CTA bilaterally Cardiac: Present Reg Rate and Rhythm GI: Present soft and tenderness (epigastric) Extremities: Absent edema Skin: Present intact Neuro: Present alert and awake Assessment and Plan *Assessment and plan (1) Perforated bowel: Status: Acute Category: Medical Code(s): K63.1 - Perforation of intestine (nontraumatic) (2) Peptic ulcer disease: Status: Acute Category: Medical Code(s): K27.9 - Peptic ulcer, site unspecified, unspecified as acute or chronic, without hemorrhage or perforation (3) Debility: Status: Acute Category: Medical Code(s): R53.81 - Other malaise (4) Type 2 diabetes mellitus: Status: Acute Category: Medical Code(s): E11.9 - Type 2 diabetes mellitus without complications (5) Lumbar radiculopathy: Status: Acute Category: Medical Code(s): M54.16 - Radiculopathy, lumbar region (6) Degenerative disc disease, lumbar: Status: Acute Category: Medical Code(s): M51.369 - Other intervertebral disc degeneration, lumbar region without mention of lumbar back pain or lower extremity pain (7) Iron deficiency anemia: Status: Acute Category: Medical Code(s): D50.9 - Iron deficiency anemia, unspecified (8) Asthma: Status: Acute Category: Medical Code(s): J45.909 - Unspecified asthma, uncomplicated (9) Bilateral knee pain: Status: Acute Qualifiers: Chronicity: chronic Qualified Code(s): M25.561 - Pain in right knee; M25.562 - Pain in left knee; G89.29 - Other chronic pain Category: Medical Code(s): M25.561 - Pain in right knee; M25.562 - Pain in left knee (10) Sepsis: Status: Acute Category: Medical Code(s): A41.9 - Sepsis, unspecified organism (11) Hypotension: Status: Acute Category: Medical Code(s): I95.9 - Hypotension, unspecified (12) Tachycardia: Status: Acute Category: Medical Code(s): R00.0 - Tachycardia, unspecified (13) Elevated lactic acid level: Status: Acute Category: Medical Code(s): R79.89 - Other specified abnormal findings of blood chemistry (14) Tachypnea: Status: Acute Category: Medical Code(s): R06.82 - Tachypnea, not elsewhere classified Plan Dr. Contreras has reviewed her CT scan. He plans for emergent exploratory laparotomy likely with Aris patch repair. Dr. Jacob has spoken with the patient's family. Dr. Jacob entry - Saw patient. Case discussed with ER doctor, Dr. Contreras and patient with her family at bedside. Discussed risks involved with surgery and after care. All of their questions were answered.
[2024-12-02 17:32] LABS: Reflex Lactic Add Lactic Reflex
--- NOTE | 2024-12-02 18:49 | P.OP_ITS ---
Date of procedure: 12/02/24 Pre-op Diagnosis:: Peritonitis, pneumoperitoneum Post-op Diagnosis:: Same Procedure performed:: Exploratory laparotomy with repair/oversewing of perforated pyloric channel ulcer using omental vascular pedicle patch (Aris patch procedure) Surgeon:: Gerard Contreras MD BUSINESS EDUCATION INSTRUCTOR:: Dominic Mariano Anesthesia: GETA Estimated blood loss (mL): 15 Clinical Note:: Patient is a 69-year-old significantly chronically debilitated minimally ambulatory female from [facility] with history of osteoarthritis and degenerative disc disease. She is on diclofenac, meloxicam, Lyrica, tramadol, and hydromorphone via intrathecal pain pump. She had acute onset of abdominal pain with associated nausea earlier today on 12/02/2024. She was brought to the emergency department via EMS at which time she was found to have guarding in the epigastrium. Laboratory evaluation significant for elevated C-reactive protein of 19, lactate 2.3, white blood cell count 4700, lipase 858. She underwent CT scan which revealed minimal pneumoperitoneum with thickening of the distal stomach and duodenal bulb. She did have significant distention of the gallbladder with mild biliary ductal dilatation but no gallstones. Surgical consultation was obtained. Patient was seen and examined in the emergency department. She appeared quite ill. She had significant peritonitis on examination. She was hypotensive and tachycardic. Arrangements were made for emergent laparotomy for probable perforated ulcer. Operative findings:: Patient had a moderately large anterior perforation near the pyloric channel. Anatomy was somewhat difficult to discern due to significant established peritonitis and inflammation. There was a large amount of intra-abdominal gastric fluid and some diffuse fibrinous purulent exudate consistent with established peritonitis Operative note:: Consent was obtained. Patient was taken emergently to the operating room. She was positioned in a supine position. General anesthesia was induced. Ramirez catheter was placed. Abdomen was prepped and draped in the standard surgical fashion. Upper midline incision was made. Dissection was carried down through subcutaneous tissues. Fascia was incised. Peritoneal cavity was entered. There was a large amount of bilious stained liquid consistent with gastric liquid throughout the abdomen which was suctioned free. Falciform ligament was clamped and divided with 0 Surgilon ties. Exposure was achieved. There was noted to be a large anterior perforation near the pylorus. However due to the amount of inflammation it was difficult determine if this was pyloric channel or prepyloric. Falciform ligament was divided further using the Enseal device. This allowed for good exposure. A relatively healthy vascular pedicle of omentum was mobilized using the Enseal device dividing the omentum on each side of the vessels. Generous amount of 3-0 Nurolon sutures were placed transversely. Vascular pedicle was then placed over the ulcer and the Nurolon sutures were tied down closing and repairing the perforation. Repair appeared intact and without obvious leakage. Nasogastric tube placed by anesthesia was confirmed to be in a good position in the antrum proximal to the perforation. Peritoneal cavity was then thoroughly irrigated with several liters of warm saline and aspirated until clear. A #10 PABLITO drain was placed through a separate incision in the right abdomen and placed over the repair site. It was ultimately secured to the skin with a 2-0 Ethilon suture. Abdominal fascia was then closed with #2 Novafil x 2. Subcutaneous tissues were irrigated. Skin was closed with cholo. Clean dry sterile dressing was applied. Condition: critical Disposition: ICU Complications:: None immediately apparent
--- NOTE | 2024-12-02 18:59 | PC.NURSE ---
Pt arrived to ICU via stretcher from surgery @[id number]
--- NOTE | 2024-12-02 19:07 | P.PNANES_ITS ---
[facility] Anesthesia Record Part I Anesthesia Record I Intake, IV Amount: 2,500 Hydration: Adequate Estimated blood loss (mL): 50 Urine output (mL): 400 Blood Products used (#): none Blood Pressure: 113/62 SaO2: 99 Pulse Rate: 90 Airway Patency: Patent Respiratory Rate: 14 Temperature: 97.0 F Patient is:: Intubated, Unarousable (Pt sedated) and Ventilator Stable to PACU at:: 18:55
--- NOTE | 2024-12-02 19:08 | SUR.OPER ---
1855 - patient transferred straight from OR to ICU. patient is intubated and sedated. in depth report was given to MARITO Akbar. patient was stable upon arriving to ICU.
--- NOTE | 2024-12-02 19:29 | ECG_ITS ---
APPROVED REPORT Exam: Resting ECG HR:79 bpm ECG Measurements Heart Rate 79 AXES ME 177 P 62 QRSd 83 QRS -19 QT 340 T 39 QTc 375 Conclusion SINUS RHYTHM LOW QRS VOLTAGE IN PRECORDIAL LEADS [QRS DEFLECTION < 1.0 mV IN CHEST LEADS] POSSIBLE ANTERIOR MYOCARDIAL INFARCTION , OF INDETERMINATE AGE [30 ms Q WAVE IN V3/V4, OR R < 0.2 mV IN V4] INFERIOR MYOCARDIAL INFARCTION , PROBABLY OLD [40+ ms Q WAVE AND/OR ST/T ABNORMALITY IN II/aVF] ABNORMAL ECG INTERPRETATION BASED ON A DEFAULT AGE OF 40 YEARS UNCONFIRMED REPORT Electronically signed by : Nahum Ann MD 12/05/2024 08:00:39
--- NOTE | 2024-12-02 19:44 | XR_ITS ---
PROCEDURE INFORMATION: Exam: XR Chest Exam date and time: 12/02/2024 7:59 PM Age: 69 years old Clinical indication: Other: Md request intubation post surgery TECHNIQUE: Imaging protocol: Radiologic exam of the chest. Views: 1 view. COMPARISON: CT ANGIO CHEST PE PROTOCOL 12/02/2024 2:03 PM FINDINGS: Tubes, catheters and devices: Endotracheal tube terminates 3 cm above the sarah. Nasogastric tube is identified with tip at least within the body of the stomach but off the inferior aspect of the radiograph. Lungs: Imaging through the visualized lung alcantara demonstrates mild bibasilar subsegmental atelectasis. Pleural spaces: Unremarkable. No pleural effusion. No pneumothorax. Heart/Mediastinum: Unremarkable. No cardiomegaly. Bones/joints: Partially visualized fractures within the left lateral lower ribs-see recent CT chest report. Old ununited right clavicle fracture. IMPRESSION: 1. Small lung volumes with mild bibasilar atelectasis. 2. Supporting apparatus as delineated above. 3. Rib fractures.
--- NOTE | 2024-12-02 19:46 | PC.NURSE ---
Preventative dressings were pplied to pts heels to prevent breakdown
[2024-12-02 19:54] LABS: Microscopic, Urine URINE MICROSCOPIC (MICROSCOPIC)
[2024-12-02 19:56] LABS: Bilirubin,Urine Negative (Negative); Color,Urine YELLOW (Yellow); Glucose,Urine (UA) Negative (Negative); Ketones,Urine Negative (Negative); Leukocyte Esterase,Urine Negative (Negative); PH,Urine 6.0 (5.0-8.5); Protein,Urine TRACE (Negative); Specific Gravity, Urine 1.010 (1.005-1.030); Urobilinogen,Urine 0.2 EU/dl (0.2)
[2024-12-02 20:00] LABS: ABG HCO3 21.9 mmhg (22.0-26.0); ABG PCO2 36.2 mmhg (35.0-45.0); ABG PH 7.40 mmol/L (7.35-7.45); ABG PO2 65.9 mmhg (80-100); ABG TCO2 23.0 mmhg (23-27)
[2024-12-02 20:04] LABS: PEEP 5; Source Left Radial
[2024-12-02] MEDS: FLUCONAZOLE IN NACL,ISO-OSM 200 MG/100 ML PIGGYBACK IV (20:05)
[2024-12-02] MEDS: PIPERCILLIN/TAZO 3.375 GM in 0.9 % SODIUM CHLORIDE 50 ML IV (20:05)
[2024-12-02 20:13] LABS: Hepatitis C Ab Qual. W/ RFX NEGATIVE (Negative)
[2024-12-02] MEDS: LACTATED RINGERS 1000ML 1,000 ML 150 ML IV (20:22)
[2024-12-02 20:35] LABS: Bacteria,Urine 2+ /lpf; RBC,Urine 20-50 #/hpf (0-3); Squamous Epithelial Cell,Urine Occasional #/hpf (0-5)
[2024-12-02] MEDS: PANTOPRAZOLE 40MG VIAL 40 MG IV (21:48)
[2024-12-02] MEDS: FENTANYL CITRATE/PF 1,000 MCG in 0.9 % SODIUM CHLORIDE 80 ML 2.5 MCG IV (22:00)
[2024-12-02 22:33] LABS: Hematocrit 25.2 % (37.0-47.0); Mean Corpuscular HGB Conc 32.5 g/dL (31.8-35.4); Mean Corpuscular Hemoglobin 31.7 pg (27.0-31.2); Mean Corpuscular Volume 97.3 fl (81-99); Platelet Count 129 K/mm3 (142-424); Red Blood Count 2.59 M/mm3 (4.20-5.40); White Blood Count 2.5 K/mm3 (4.8-10.8)
[2024-12-02] MEDS: VANCOMYCIN/WATER FOR INJ (PEG) 1.75 GM/350 ML PIGGYBACK IV (22:38)
[2024-12-02] MEDS: NOREPINEPHRINE BITARTRATE/D5W 8 MG/250 ML PLAST..BAG 15 MG IV (22:55)
--- NOTE | 2024-12-02 23:03 | PC.NURSE ---
Dr. Jacob notified of critical lactic acid level of 8.3. Will continue to monitor.
[2024-12-03] VITALS (143 sets, daily range): BP systolic 64–168; BP diastolic 37–84; PULSE 54–123; RESP 12–28; TEMP 37.1–38.3; O2SAT 92–100; BMI 300373.9; BMI 30.2
[2024-12-03 00:02] LABS: Total Cells Counted 100
[2024-12-03 00:03] LABS: Anisocytosis 1+; Ovalocytes 1+; Polychromasia 1+
[2024-12-03 00:07] LABS: Hemoglobin 8.0 g/dL (12.2-16.2)
--- NOTE | 2024-12-03 00:21 | PC.NURSE ---
admitted and arrived to icu today at 0000. cre swab done.
[2024-12-03] MEDS: PIPERCILLIN/TAZO 3.375 GM in 0.9 % SODIUM CHLORIDE 50 ML IV ×4 (01:04→18:44)
[2024-12-03] MEDS: LACTATED RINGERS 1000ML 1,000 ML 150 ML IV ×4 (01:05→23:19)
[2024-12-03] MEDS: ACETAMINOPHEN 650MG SUPPOSITORY 650 MG RC ×3 (02:04→15:15)
[2024-12-03 02:50] LABS: Hematocrit 31.5 % (37.0-47.0); Mean Corpuscular HGB Conc 33.3 g/dL (31.8-35.4); Mean Corpuscular Hemoglobin 31.4 pg (27.0-31.2); Mean Corpuscular Volume 94.3 fl (81-99); Platelet Count 255 K/mm3 (142-424); Red Blood Count 3.34 M/mm3 (4.20-5.40); White Blood Count 7.5 K/mm3 (4.8-10.8)
--- NOTE | 2024-12-03 06:00 | XR_ITS ---
PROCEDURE INFORMATION: Exam: XR Chest Exam date and time: 12/03/2024 6:05 AM Age: 69 years old Clinical indication: Device placement; Ett placement (vent status); Additional info: Patient intubated TECHNIQUE: Imaging protocol: Radiologic exam of the chest. Views: 1 view. COMPARISON: CR XR CHEST PORTABLE 12/02/2024 7:59 PM FINDINGS: Tubes, catheters and devices: Endotracheal tube terminates 5 cm above the sarah . Enteric tube is seen within the stomach. Lungs: Opacities in both bases may represent atelectasis or pneumonia.. Pleural spaces: There may be mild bilateral pleural effusions. Heart/Mediastinum: Stable cardiac silhouette Bones/joints: Unremarkable. IMPRESSION: 1. Endotracheal tube terminates 5 cm above the sarah . 2. Enteric tube is seen within the stomach. 3. Opacities in both bases may represent atelectasis or pneumonia.. 4. There may be mild bilateral pleural effusions.
[2024-12-03 07:25] LABS: ABG HCO3 21.5 mmhg (22.0-26.0); ABG PCO2 38.6 mmhg (35.0-45.0); ABG PH 7.36 mmol/L (7.35-7.45); ABG PO2 74.2 mmhg (80-100); ABG TCO2 22.7 mmhg (23-27)
[2024-12-03 07:28] LABS: PEEP 5; Source Right Radial
[2024-12-03 07:37] LABS: Hematocrit 35.7 % (37.0-47.0); Hemoglobin 11.5 g/dL (12.2-16.2); Immature Granulocytes % 0.4 %; Mean Corpuscular HGB Conc 32.2 g/dL (31.8-35.4); Mean Corpuscular Hemoglobin 30.2 pg (27.0-31.2); Mean Corpuscular Volume 93.7 fl (81-99); Nucleated Red Blood Cells % 0 %; Platelet Count 306 K/mm3 (142-424); Red Blood Count 3.81 M/mm3 (4.20-5.40); Red Cell Distribution Width-SD 46.8 fL; White Blood Count 10.6 K/mm3 (4.8-10.8)
[2024-12-03 07:54] LABS: Alanine Aminotransferase 18 U/L (12-78); Albumin Level 2.8 g/dl (3.5-5.0); Albumin/Globulin Ratio 1.1 (1.1-1.8); Alkaline Phosphatase 43 U/L (38-126); Anion Gap 7.5 mEq/L (5-15); Aspartate Amino Transferase 38 U/L (14-36); Bilirubin,Total 0.4 mg/dl (0.2-1.3); Blood Urea Nitrogen 17 mg/dl (7-17); Calcium 10.5 mg/dl (8.4-10.2); Carbon Dioxide 24 mmol/L (22.0-30.0); Chloride 109 mmol/L (98-107); Creatinine Clearance Estimated 63 mL/min (50-200); Creatinine,Serum 0.90 mg/dl (0.52-1.04); Estimated Glomerular Filt Rate 62 ml/min (>60); GFR (African American) 75 ML/MIN (>60); Globulin 2.5 g/dL (1.3-3.2); Glucose 110 mg/dl (74-100); Potassium 4.5 mmoL/L (3.5-5.1); Sodium 136 mmol/L (136-145); Total Protein,Serum 5.3 g/dl (6.3-8.2)
[2024-12-03 08:18] LABS: Hemoglobin 10.5 g/dL (12.2-16.2)
--- NOTE | 2024-12-03 08:37 | EXP.SURG.PN ---
Subjective Narrative: Patient remains on ventilator with sedation consisting of propofol and fentanyl drips. Started Levophed for hypotension. Patient is making good urine. Exam Data for Last 24 hours Vital signs and Labs for Last 24 Hours: Temp Pulse Resp BP Pulse Ox O2 Del Method O2 Flow Rate 100.9 F H 96 H 18 97/61 L 94 L Mechanical Ventilation 60 12/03/24 02:07 12/03/24 07:30 12/03/24 07:30 12/03/24 07:30 12/03/24 07:30 12/03/24 07:30 12/03/24 06:00 FiO2 60 12/03/24 07:12 Laboratory Results - last 24 hr 12/02/24 13:11: WBC 4.7 L, RBC 4.26, Hgb 12.9, Hct 42.0, MCV 98.6, MCH 30.3, MCHC 30.7 L, RDW 13.8, Plt Count 193, MPV 9.3, Neut % (Auto) 79.4, Lymph % (Auto) 11.9, [place] % (Auto) 8.1, Eos % (Auto) 0.4, Baso % (Auto) 0.0 L, Neut # (Auto) 3.7, Lymph # (Auto) 0.6 L, [place] # (Auto) 0.4, Eos # (Auto) 0.0, Baso # (Auto) 0.0, VBG pH 7.22 L, VBG pCO2 46.5, VBG pO2 38.6, VBG HCO3 18.6 L, VBG Total CO2 20.0 L, VBG O2 Saturation 69.9, VBG Base Excess -9.2 L, VBG Lactic Acid 2.3 H, Sodium 137, Potassium 4.1, Chloride 106, Carbon Dioxide 24, Anion Gap 11.1, BUN 19 H, Creatinine 0.90, Estimated Creat Clear 67, Estimated GFR 62, Est GFR ( Amer) 75, Glucose 124 H, Calcium 11.3 H, Magnesium 1.7, Total Bilirubin 0.5, AST 30, ALT 16, Alkaline Phosphatase 72, Troponin I < 0.01, C-Reactive Protein 19.1 H, Total Protein 7.6, Albumin 3.9, Globulin 3.7 H, Albumin/Globulin Ratio 1.1, Lipase 858 H, HCV Ab JAY w/Rflx PCR Qn Negative, HIV Ag/Ab Combo Qual Negative 12/02/24 15:30: Urine Color Yellow, Urine Appearance Clear, Urine pH 5.5, Ur Specific [place] 1.020, Urine Protein 1+ A, Urine Glucose (UA) Negative, Urine Ketones Negative, Urine Blood 1+ A, Urine Nitrate Negative, Urine Bilirubin Negative, Urine Urobilinogen 0.2, Ur Leukocyte Esterase Negative, Urine RBC 20-50, Urine WBC 5-10, Ur Squamous Epith Cells Occasional, Urine Bacteria 1+, Hyaline Casts 3-5, Urine Mucus 1+ 12/02/24 19:28: Urine Color Yellow, Urine Appearance Clear, Urine pH 6.0, Ur Specific [place] 1.010, Urine Protein Trace, Urine Glucose (UA) Negative, Urine Ketones Negative, Urine Blood Trace-i, Urine Nitrate Negative, Urine Bilirubin Negative, Urine Urobilinogen 0.2, Ur Leukocyte Esterase Negative, Urine RBC 20-50, Urine WBC 3-5, Ur Squamous Epith Cells Occasional, Urine Bacteria 2+ 12/02/24 19:58: Specimen Source Left radial, O2 % 60, ABG pH 7.40, ABG pCO2 36.2, ABG pO2 65.9 L, ABG HCO3 21.9 L, ABG Total CO2 23.0, ABG O2 Saturation 94, ABG Base Excess -2.9 L, Henry Test Patient unable, Vent Rate 18, Tidal Volume 410, PEEP 5 12/02/24 22:19: WBC 2.5 L D, RBC 2.59 L D, Hgb 8.0 L D, Hct 25.2 L, MCV 97.3, MCH 31.7 H, MCHC 32.5, RDW 13.7, Plt Count 129 L D, MPV 9.7, Neut % (Auto) 77.6, Lymph % (Auto) 16.3, [place] % (Auto) 5.7, Eos % (Auto) 0.0 L, Baso % (Auto) 0.0 L, Neut # (Auto) 1.9, Lymph # (Auto) 0.4 L, [place] # (Auto) 0.1, Eos # (Auto) 0.0, Baso # (Auto) 0.0, Total Counted 100, Neutrophils % (Manual) 74, Lymphocytes % (Manual) 24, Monocytes % (Manual) 2, Platelet Estimate Normal, Polychromasia 1+, Anisocytosis 1+, Ovalocytes 1+, Lactate 8.3 H 12/03/24 02:38: WBC 7.5 D, RBC 3.34 L D, Hgb 10.5 L D, Hct 31.5 L, MCV 94.3, MCH 31.4 H, MCHC 33.3, RDW 13.7, Plt Count 255 D, MPV 9.6, Neut % (Auto) 81.1 H, Lymph % (Auto) 12.2, [place] % (Auto) 6.0, Eos % (Auto) 0.1, Baso % (Auto) 0.1, Neut # (Auto) 6.1, Lymph # (Auto) 0.9, [place] # (Auto) 0.5, Eos # (Auto) 0.0, Baso # (Auto) 0.0 12/03/24 06:43: Specimen Source Right radial, O2 % 60%, ABG pH 7.36, ABG pCO2 38.6, ABG pO2 74.2 L, ABG HCO3 21.5 L, ABG Total CO2 22.7 L, ABG O2 Saturation 95, ABG Base Excess -3.9 L, [place] Test Patient unable, Vent Rate 18, Tidal Volume 410, PEEP 5 12/03/24 06:56: WBC 10.6 D, RBC 3.81 L, Hgb 11.5 L, Hct 35.7 L, MCV 93.7, MCH 30.2, MCHC 32.2, RDW 13.8, Plt Count 306, MPV 9.5, Neut % (Auto) 83.9 H, Lymph % (Auto) 10.2, [place] % (Auto) 5.1, Eos % (Auto) 0.1, Baso % (Auto) 0.3, Neut # (Auto) 8.9 H, Lymph # (Auto) 1.1, [place] # (Auto) 0.5, Eos # (Auto) 0.0, Baso # (Auto) 0.0, Sodium 136, Potassium 4.5, Chloride 109 H, Carbon Dioxide 24, Anion Gap 7.5, BUN 17, Creatinine 0.90, Estimated Creat Clear 63, Estimated GFR 62, Est GFR ( Amer) 75, Glucose 110 H, Calcium 10.5 H, Total Bilirubin 0.4, AST 38 H D, ALT 18, Alkaline Phosphatase 43, Total Protein 5.3 L D, Albumin 2.8 L D, Globulin 2.5, Albumin/Globulin Ratio 1.1 I & O for Last 24 hours: Intake & Output 11/30/24 12/01/24 12/02/24 12/03/24 11:59 11:59 11:59 11:59 Intake Total 5686.813 / 5686.813 Output Total 1950 / 1950 Balance 3736.813 / 3736.813 Weight 164 lb 3.91 oz Microbiology Reports for the Last 24 Hours: Microbiology 12/02/24 20:17 Sputum - Endotracheal Tube Aspirate Gram Stain - Final *Routine Abdominal Exam Abdominal: Present soft Comments: PABLITO with thin serous output Progress Note: A&P Assessment and plan (1) Perforated bowel: Status: Acute (2) Peptic ulcer disease: Status: Acute (3) Debility: Status: Acute (4) Type 2 diabetes mellitus: Status: Acute (5) Lumbar radiculopathy: Status: Acute (6) Degenerative disc disease, lumbar: Status: Acute (7) Iron deficiency anemia: Status: Acute (8) Asthma: Status: Acute (9) Bilateral knee pain: Status: Acute (10) Sepsis: Status: Acute (11) Hypotension: Status: Acute (12) Tachycardia: Status: Acute (13) Elevated lactic acid level: Status: Acute (14) Tachypnea: Status: Acute Assessment and Plan Assessment and Plan for All Diagnoses:: Wean from ventilator per pulmonary. Continue Zosyn, fluconazole, proton pump inhibitor.
--- NOTE | 2024-12-03 08:49 | EXP.ACUTE.PN ---
Subjective *Date: 12/03/24 *Time: 08:52 Interval history: Patient is intubated and sedated. Surgery note reviewed. BP dropped last night and levophed was started. Medical Exam Vital signs and Labs for Last 24 Hours: Vital Signs Temp Pulse Pulse Resp BP BP Pulse Ox 12/03/24 07:30 96 H 18 97/61 L 94 L 12/03/24 07:28 94 L 12/03/24 07:15 104 H 18 95/57 L 94 L 12/03/24 07:12 18 95 12/03/24 07:00 91 H 18 93/52 L 94 L 12/03/24 06:45 83 18 111/65 94 L 12/03/24 06:30 86 18 106/63 L 94 L 12/03/24 06:15 87 18 117/67 94 L 12/03/24 06:00 79 15 104/58 L 93 L 12/03/24 05:30 95 H 18 94 L 12/03/24 05:30 89/51 L 12/03/24 05:25 94 H 18 94 L 12/03/24 05:25 94/50 L 12/03/24 05:20 92/53 L 12/03/24 05:20 94 H 18 93 L 12/03/24 05:15 91/51 L 12/03/24 05:15 94 H 18 94 L 12/03/24 05:10 94 H 18 93 L 12/03/24 05:10 91/51 L 12/03/24 05:05 97 H 18 93 L 12/03/24 05:05 95/51 L 12/03/24 05:00 95 H 18 98/53 L 93 L 12/03/24 05:00 12/03/24 04:05 18 93 L 12/03/24 04:00 91 H 18 84/51 L 93 L 12/03/24 04:00 91 H 12/03/24 03:30 12/03/24 03:00 76 18 138/67 94 L 12/03/24 03:00 12/03/24 02:35 94 L 12/03/24 02:07 100.9 F H 12/03/24 02:00 82 16 86/46 L 92 L 12/03/24 01:55 87 18 93 L 12/03/24 01:55 85/46 L 12/03/24 01:54 86 18 90/46 L 93 L 12/03/24 01:50 82 18 93 L 12/03/24 01:50 90/46 L 12/03/24 01:45 92/50 L 12/03/24 01:45 81 18 93 L 12/03/24 01:40 81 18 93 L 12/03/24 01:40 95/50 L 12/03/24 01:35 79 18 93 L 12/03/24 01:35 95/50 L 12/03/24 01:30 79 18 93 L 12/03/24 01:30 96/52 L 12/03/24 01:25 79 18 93 L 12/03/24 01:25 98/51 L 12/03/24 01:20 103/52 L 12/03/24 01:20 76 18 93 L 12/03/24 01:15 74 18 94 L 12/03/24 01:15 116/55 L 12/03/24 01:10 116/66 12/03/24 01:10 67 18 94 L 12/03/24 01:05 77 18 93 L 12/03/24 01:05 84/47 L 12/03/24 01:00 78 18 90/48 L 93 L 12/03/24 00:51 12/03/24 00:45 71 18 95 12/03/24 00:45 127/59 L 12/03/24 00:40 74 18 92 L 12/03/24 00:40 80/47 L 12/03/24 00:35 77 18 93 L 12/03/24 00:35 92/45 L 12/03/24 00:30 78 18 94 L 12/03/24 00:30 96/50 L 12/03/24 00:25 77 18 94 L 12/03/24 00:25 96/51 L 12/03/24 00:20 78 18 94 L 12/03/24 00:20 96/51 L 12/03/24 00:15 77 18 94 L 12/03/24 00:15 92/51 L 12/03/24 00:10 77 18 94 L 12/03/24 00:10 89/47 L 12/03/24 00:05 75 18 94 L 12/03/24 00:05 89/48 L 12/03/24 00:02 18 94 L 12/03/24 00:00 73 18 94 L 12/03/24 00:00 103/54 L 12/03/24 00:00 12/02/24 23:00 74 18 76/44 L 93 L 12/02/24 23:00 12/02/24 22:30 18 94 L 12/02/24 22:00 76 18 83/44 L 95 12/02/24 21:02 87 19 139/82 89 L 12/02/24 21:00 12/02/24 20:00 99.9 F H 81 18 90/55 L 94 L 12/02/24 19:23 19 96 12/02/24 19:07 97.0 F L 90 14 113/62 12/02/24 19:00 12/02/24 18:33 97 12/02/24 17:02 98.1 F 128 H 16 99/60 L 12/02/24 16:30 125 H 20 85/51 L 99 12/02/24 16:00 120 H 18 99/60 L 98 12/02/24 15:30 118 H 18 115/64 97 12/02/24 14:30 108 H 18 134/71 96 12/02/24 13:30 107 H 18 134/75 95 12/02/24 13:01 96 H 18 121/77 96 12/02/24 13:00 100.4 F H 12/02/24 12:44 98.5 F 113 H 16 112/77 93 L O2 Del Method O2 Flow Rate FiO2 12/03/24 07:30 Mechanical Ventilation 12/03/24 07:28 Mechanical Ventilation 12/03/24 07:15 Mechanical Ventilation 12/03/24 07:12 60 12/03/24 07:00 Mechanical Ventilation 12/03/24 06:45 Mechanical Ventilation 12/03/24 06:30 Mechanical Ventilation 12/03/24 06:15 Mechanical Ventilation 12/03/24 06:00 Mechanical Ventilation 60 12/03/24 05:30 12/03/24 05:30 12/03/24 05:25 12/03/24 05:25 12/03/24 05:20 12/03/24 05:20 12/03/24 05:15 12/03/24 05:15 12/03/24 05:10 12/03/24 05:10 12/03/24 05:05 12/03/24 05:05 12/03/24 05:00 12/03/24 05:00 Mechanical Ventilation 12/03/24 04:05 60 12/03/24 04:00 12/03/24 04:00 12/03/24 03:30 Mechanical Ventilation 60 12/03/24 03:00 12/03/24 03:00 Mechanical Ventilation 12/03/24 02:35 60 12/03/24 02:07 12/03/24 02:00 12/03/24 01:55 12/03/24 01:55 12/03/24 01:54 Mechanical Ventilation 60 12/03/24 01:50 12/03/24 01:50 12/03/24 01:45 12/03/24 01:45 12/03/24 01:40 12/03/24 01:40 12/03/24 01:35 12/03/24 01:35 12/03/24 01:30 12/03/24 01:30 12/03/24 01:25 12/03/24 01:25 12/03/24 01:20 12/03/24 01:20 12/03/24 01:15 12/03/24 01:15 12/03/24 01:10 12/03/24 01:10 12/03/24 01:05 12/03/24 01:05 12/03/24 01:00 Mechanical Ventilation 60 12/03/24 00:51 Mechanical Ventilation 12/03/24 00:45 12/03/24 00:45 12/03/24 00:40 12/03/24 00:40 12/03/24 00:35 12/03/24 00:35 12/03/24 00:30 12/03/24 00:30 12/03/24 00:25 12/03/24 00:25 12/03/24 00:20 12/03/24 00:20 12/03/24 00:15 12/03/24 00:15 12/03/24 00:10 12/03/24 00:10 12/03/24 00:05 12/03/24 00:05 12/03/24 00:02 60 12/03/24 00:00 12/03/24 00:00 12/03/24 00:00 Mechanical Ventilation 60 12/02/24 23:00 12/02/24 23:00 Mechanical Ventilation 12/02/24 22:30 60 12/02/24 22:00 Mechanical Ventilation 60 12/02/24 21:02 Mechanical Ventilation 60 12/02/24 21:00 Mechanical Ventilation 12/02/24 20:00 Mechanical Ventilation 12/02/24 19:23 60 12/02/24 19:07 12/02/24 19:00 Mechanical Ventilation 12/02/24 18:33 Mechanical Ventilation 12/02/24 17:02 Nasal Cannula 5 12/02/24 16:30 12/02/24 16:00 12/02/24 15:30 12/02/24 14:30 12/02/24 13:30 12/02/24 13:01 12/02/24 13:00 12/02/24 12:44 Nasal Cannula 5 Intake and Output 12/02/24 12/03/24 12/03/24 23:59 07:59 15:59 Intake Total 2551.252 / 3651.252 2960.461 / 3135.561 175.1 / 3135.561 Output Total 650 / 1195 1300 / 1300 Balance 1901.252 / 2456.252 1660.461 / 1835.561 175.1 / 1835.561 Intake: Intake, Total IV Amount 2551.252 / 3651.252 2960.461 / 3135.561 175.1 / 3135.561 Fluconazole in NaCl,Iso-Osm 200 100 / 100 mg In 100 ml @ 200 mls/hr IV Q24H [facility] Rx#:[id number] Lactated Ringers 1000ML 1,000 1438 / 1438 ml @ 150 mls/hr IV .Q6H40M [facility] Rx#:[id number] Lactated Ringers 1000ML 500 ml 600 / 600 @ 250 mls/hr IV .Q2H ONE Rx#: [id number] Piperacillin/Tazo 4.5 gm In 0.9 50 / 50 % Sodium Chloride 100 ml @ 200 mls/hr IV ONCE ONE Rx#: [id number] Pipercillin/Tazo 3.375 gm In 0. 50 / 50 9 % Sodium Chloride 50 ml @ 100 mls/hr IV Q6H [facility] Rx#: [id number] Vancomycin/Water For Inj (Peg) 350 / 350 1.75 gm In 350 ml @ 175 mls/hr IV ONCE ONE Rx#:[id number] Output: Output, Urine Amount 650 / 970 870 / 870 Output, Emesis Amount 50 / 50 Output, Gastric Drainage Amount 30 / 30 Left Nare 30 / 30 Output, Drainage Amount 350 / 350 Right Upper Abdomen 350 / 350 Other: Number of Unmeasured Voids 0 Weight 163 lb 9 oz 164 lb 3.91 oz 164 lb 3.91 oz Patient Weight 12/03/24 23:59 Weight 164 lb 3.91 oz Laboratory Results - last 24 hr 12/02/24 13:11: WBC 4.7 L, RBC 4.26, Hgb 12.9, Hct 42.0, MCV 98.6, MCH 30.3, MCHC 30.7 L, RDW 13.8, Plt Count 193, MPV 9.3, Neut % (Auto) 79.4, Lymph % (Auto) 11.9, [place] % (Auto) 8.1, Eos % (Auto) 0.4, Baso % (Auto) 0.0 L, Neut # (Auto) 3.7, Lymph # (Auto) 0.6 L, [place] # (Auto) 0.4, Eos # (Auto) 0.0, Baso # (Auto) 0.0, VBG pH 7.22 L, VBG pCO2 46.5, VBG pO2 38.6, VBG HCO3 18.6 L, VBG Total CO2 20.0 L, VBG O2 Saturation 69.9, VBG Base Excess -9.2 L, VBG Lactic Acid 2.3 H, Sodium 137, Potassium 4.1, Chloride 106, Carbon Dioxide 24, Anion Gap 11.1, BUN 19 H, Creatinine 0.90, Estimated Creat Clear 67, Estimated GFR 62, Est GFR ( Amer) 75, Glucose 124 H, Calcium 11.3 H, Magnesium 1.7, Total Bilirubin 0.5, AST 30, ALT 16, Alkaline Phosphatase 72, Troponin I < 0.01, C-Reactive Protein 19.1 H, Total Protein 7.6, Albumin 3.9, Globulin 3.7 H, Albumin/Globulin Ratio 1.1, Lipase 858 H, HCV Ab JAY w/Rflx PCR Qn Negative, HIV Ag/Ab Combo Qual Negative 12/02/24 15:30: Urine Color Yellow, Urine Appearance Clear, Urine pH 5.5, Ur Specific [place] 1.020, Urine Protein 1+ A, Urine Glucose (UA) Negative, Urine Ketones Negative, Urine Blood 1+ A, Urine Nitrate Negative, Urine Bilirubin Negative, Urine Urobilinogen 0.2, Ur Leukocyte Esterase Negative, Urine RBC 20-50, Urine WBC 5-10, Ur Squamous Epith Cells Occasional, Urine Bacteria 1+, Hyaline Casts 3-5, Urine Mucus 1+ 12/02/24 19:28: Urine Color Yellow, Urine Appearance Clear, Urine pH 6.0, Ur Specific [place] 1.010, Urine Protein Trace, Urine Glucose (UA) Negative, Urine Ketones Negative, Urine Blood Trace-i, Urine Nitrate Negative, Urine Bilirubin Negative, Urine Urobilinogen 0.2, Ur Leukocyte Esterase Negative, Urine RBC 20-50, Urine WBC 3-5, Ur Squamous Epith Cells Occasional, Urine Bacteria 2+ 12/02/24 19:58: Specimen Source Left radial, O2 % 60, ABG pH 7.40, ABG pCO2 36.2, ABG pO2 65.9 L, ABG HCO3 21.9 L, ABG Total CO2 23.0, ABG O2 Saturation 94, ABG Base Excess -2.9 L, Henry Test Patient unable, Vent Rate 18, Tidal Volume 410, PEEP 5 12/02/24 22:19: WBC 2.5 L D, RBC 2.59 L D, Hgb 8.0 L D, Hct 25.2 L, MCV 97.3, MCH 31.7 H, MCHC 32.5, RDW 13.7, Plt Count 129 L D, MPV 9.7, Neut % (Auto) 77.6, Lymph % (Auto) 16.3, [place] % (Auto) 5.7, Eos % (Auto) 0.0 L, Baso % (Auto) 0.0 L, Neut # (Auto) 1.9, Lymph # (Auto) 0.4 L, [place] # (Auto) 0.1, Eos # (Auto) 0.0, Baso # (Auto) 0.0, Total Counted 100, Neutrophils % (Manual) 74, Lymphocytes % (Manual) 24, Monocytes % (Manual) 2, Platelet Estimate Normal, Polychromasia 1+, Anisocytosis 1+, Ovalocytes 1+, Lactate 8.3 H 12/03/24 02:38: WBC 7.5 D, RBC 3.34 L D, Hgb 10.5 L D, Hct 31.5 L, MCV 94.3, MCH 31.4 H, MCHC 33.3, RDW 13.7, Plt Count 255 D, MPV 9.6, Neut % (Auto) 81.1 H, Lymph % (Auto) 12.2, [place] % (Auto) 6.0, Eos % (Auto) 0.1, Baso % (Auto) 0.1, Neut # (Auto) 6.1, Lymph # (Auto) 0.9, [place] # (Auto) 0.5, Eos # (Auto) 0.0, Baso # (Auto) 0.0 12/03/24 06:43: Specimen Source Right radial, O2 % 60%, ABG pH 7.36, ABG pCO2 38.6, ABG pO2 74.2 L, ABG HCO3 21.5 L, ABG Total CO2 22.7 L, ABG O2 Saturation 95, ABG Base Excess -3.9 L, Henry Test Patient unable, Vent Rate 18, Tidal Volume 410, PEEP 5 12/03/24 06:56: WBC 10.6 D, RBC 3.81 L, Hgb 11.5 L, Hct 35.7 L, MCV 93.7, MCH 30.2, MCHC 32.2, RDW 13.8, Plt Count 306, MPV 9.5, Neut % (Auto) 83.9 H, Lymph % (Auto) 10.2, [place] % (Auto) 5.1, Eos % (Auto) 0.1, Baso % (Auto) 0.3, Neut # (Auto) 8.9 H, Lymph # (Auto) 1.1, [place] # (Auto) 0.5, Eos # (Auto) 0.0, Baso # (Auto) 0.0, Sodium 136, Potassium 4.5, Chloride 109 H, Carbon Dioxide 24, Anion Gap 7.5, BUN 17, Creatinine 0.90, Estimated Creat Clear 63, Estimated GFR 62, Est GFR ( Amer) 75, Glucose 110 H, Calcium 10.5 H, Total Bilirubin 0.4, AST 38 H D, ALT 18, Alkaline Phosphatase 43, Total Protein 5.3 L D, Albumin 2.8 L D, Globulin 2.5, Albumin/Globulin Ratio 1.1 I & O for Labs for Last 24 Hours: Intake & Output 11/30/24 12/01/24 12/02/24 12/03/24 23:59 23:59 23:59 23:59 Intake Total 2551.252 / 3651.252 3135.561 / 3135.561 Output Total 650 / 1195 1300 / 1300 Balance 1901.252 / 2456.252 1835.561 / 1835.561 Weight 163 lb 9 oz 164 lb 3.91 oz Microbiology Reports for the Last 24 Hours: Microbiology 12/02/24 20:17 Sputum - Endotracheal Tube Aspirate Gram Stain - Final Comment:: Intubated and sedated Cardiac: Present Reg Rate and Rhythm Comment:: SCD's inplace Assessment and Plan *Assessment and plan (1) Perforated bowel: Status: Acute Category: Medical Code(s): K63.1 - Perforation of intestine (nontraumatic) (2) Peptic ulcer disease: Status: Acute Category: Medical Code(s): K27.9 - Peptic ulcer, site unspecified, unspecified as acute or chronic, without hemorrhage or perforation (3) Debility: Status: Acute Category: Medical Code(s): R53.81 - Other malaise (4) Type 2 diabetes mellitus: Status: Acute Category: Medical Code(s): E11.9 - Type 2 diabetes mellitus without complications (5) Lumbar radiculopathy: Status: Acute Category: Medical Code(s): M54.16 - Radiculopathy, lumbar region (6) Degenerative disc disease, lumbar: Status: Acute Category: Medical Code(s): M51.369 - Other intervertebral disc degeneration, lumbar region without mention of lumbar back pain or lower extremity pain (7) Iron deficiency anemia: Status: Acute Category: Medical Code(s): D50.9 - Iron deficiency anemia, unspecified (8) Asthma: Status: Acute Category: Medical Code(s): J45.909 - Unspecified asthma, uncomplicated (9) Bilateral knee pain: Status: Acute Qualifiers: Chronicity: chronic Qualified Code(s): M25.561 - Pain in right knee; M25.562 - Pain in left knee; G89.29 - Other chronic pain Category: Medical Code(s): M25.561 - Pain in right knee; M25.562 - Pain in left knee (10) Sepsis: Status: Acute Category: Medical Code(s): A41.9 - Sepsis, unspecified organism (11) Hypotension: Status: Acute Category: Medical Code(s): I95.9 - Hypotension, unspecified (12) Tachycardia: Status: Acute Category: Medical Code(s): R00.0 - Tachycardia, unspecified (13) Elevated lactic acid level: Status: Acute Category: Medical Code(s): R79.89 - Other specified abnormal findings of blood chemistry (14) Tachypnea: Status: Acute Category: Medical Code(s): R06.82 - Tachypnea, not elsewhere classified (15) Anemia: Status: Acute Category: Medical Code(s): D64.9 - Anemia, unspecified Plan Pt is POD #1 s/p repair of perforated peptic ulcer. Plan to wean down sedation and have a breathing trial today. Cont. Vanc, Zosyn, Fluconazole and PPI. Monitor labs.
[2024-12-03 08:56] LABS: Lipase 230 U/L (23-300); Magnesium 1.5 mg/dl (1.6-2.3)
[2024-12-03 09:25] LABS: RBC Morphology Normal
[2024-12-03 09:27] LABS: Total Cells Counted 100
--- NOTE | 2024-12-03 09:33 | EXP.PHA.CONS ---
Pharmacy Consult Date: 12/03/24 Time: 09:33 Referring provider: DR. LOPEZ Reason for Consult:: VANCOMYCIN DOSING Allergies Allergy/AdvReac Type Severity Reaction Status Date / Time Sulfa (Sulfonamide Allergy Unknown NA-NAUSEA/V Verified 08/26/24 14:06 Antibiotics) (SULFA OMITING (SULFONAMIDE ANTIBIOTICS)) Home Medications ?Medication ?Instructions ?Recorded ?Confirmed ?Type duloxetine 60 mg capsule,delayed 120 mg PO DAILY Depression 09/09/17 12/03/24 History release vit E 12 mg-vit E mix 50 2 each PO DIRECTED Supplement 03/04/21 11/10/24 History mg-squalene 6.6 mg-phytosterol 3.3 mg capsule diclofenac sodium 20 2 pump topical BID Pain 12/26/21 11/10/24 History mg/gram/actuation (2 %) topical soln metered-dose pump hydromorphone (PF) 1 mg/mL in 0.9% 0.5 mg intrathecal CONT CHRONIC 12/26/21 12/03/24 History sodium chloride intravenous syringe PAIN ropinirole 2 mg tablet 2 mg PO HSP PRN RESTLESS LEGS 03/20/22 12/03/24 History ascorbic acid (vitamin C) 500 mg 500 mg PO QID Supplement 04/29/22 12/03/24 History tablet (Vitamin C) ergocalciferol (vitamin D2) 1,250 50,000 unit PO WEEKLY Supplement 04/29/22 11/10/24 History mcg (50,000 unit) capsule zinc sulfate 50 mg zinc (220 mg) 220 mg PO DAILY Supplement 04/29/22 11/10/24 History capsule pramipexole 1.5 mg tablet 1.5 mg PO HS . 08/05/22 11/10/24 History ondansetron 4 mg disintegrating 4 mg PO Q8H PRN nausea and 12/13/22 12/03/24 Rx tablet vomiting 4 days #12 tabs meloxicam 15 mg tablet 15 mg PO DAILY 03/03/23 12/03/24 History tramadol 50 mg tablet 50 mg PO BID #60 tabs 09/20/24 12/03/24 Rx pregabalin 100 mg capsule (Lyrica) 100 mg PO QID Pain #120 caps 10/17/24 12/03/24 Rx ferrous sulfate 325 mg (65 mg 325 mg PO DAILY 12/03/24 12/03/24 History iron) tablet (FeroSul) furosemide 20 mg tablet 20 mg PO DAILY 12/03/24 12/03/24 History magnesium oxide 400 mg (241.3 mg 400 mg PO BID 12/03/24 12/03/24 History magnesium) tablet New Prescriptions to Start Prescriptions: Height: 1.57 m Weight: 74.5 kg Laboratory Results:: Laboratory Results - last 24 hr 12/02/24 13:11: WBC 4.7 L, RBC 4.26, Hgb 12.9, Hct 42.0, MCV 98.6, MCH 30.3, MCHC 30.7 L, RDW 13.8, Plt Count 193, MPV 9.3, Neut % (Auto) 79.4, Lymph % (Auto) 11.9, [place] % (Auto) 8.1, Eos % (Auto) 0.4, Baso % (Auto) 0.0 L, Neut # (Auto) 3.7, Lymph # (Auto) 0.6 L, [place] # (Auto) 0.4, Eos # (Auto) 0.0, Baso # (Auto) 0.0, VBG pH 7.22 L, VBG pCO2 46.5, VBG pO2 38.6, VBG HCO3 18.6 L, VBG Total CO2 20.0 L, VBG O2 Saturation 69.9, VBG Base Excess -9.2 L, VBG Lactic Acid 2.3 H, Sodium 137, Potassium 4.1, Chloride 106, Carbon Dioxide 24, Anion Gap 11.1, BUN 19 H, Creatinine 0.90, Estimated Creat Clear 67, Estimated GFR 62, Est GFR ( Amer) 75, Glucose 124 H, Calcium 11.3 H, Magnesium 1.7, Total Bilirubin 0.5, AST 30, ALT 16, Alkaline Phosphatase 72, Troponin I < 0.01, C-Reactive Protein 19.1 H, Total Protein 7.6, Albumin 3.9, Globulin 3.7 H, Albumin/Globulin Ratio 1.1, Lipase 858 H, HCV Ab JAY w/Rflx PCR Qn Negative, HIV Ag/Ab Combo Qual Negative 12/02/24 15:30: Urine Color Yellow, Urine Appearance Clear, Urine pH 5.5, Ur Specific [place] 1.020, Urine Protein 1+ A, Urine Glucose (UA) Negative, Urine Ketones Negative, Urine Blood 1+ A, Urine Nitrate Negative, Urine Bilirubin Negative, Urine Urobilinogen 0.2, Ur Leukocyte Esterase Negative, Urine RBC 20-50, Urine WBC 5-10, Ur Squamous Epith Cells Occasional, Urine Bacteria 1+, Hyaline Casts 3-5, Urine Mucus 1+ 12/02/24 19:28: Urine Color Yellow, Urine Appearance Clear, Urine pH 6.0, Ur Specific [place] 1.010, Urine Protein Trace, Urine Glucose (UA) Negative, Urine Ketones Negative, Urine Blood Trace-i, Urine Nitrate Negative, Urine Bilirubin Negative, Urine Urobilinogen 0.2, Ur Leukocyte Esterase Negative, Urine RBC 20-50, Urine WBC 3-5, Ur Squamous Epith Cells Occasional, Urine Bacteria 2+ 12/02/24 19:58: Specimen Source Left radial, O2 % 60, ABG pH 7.40, ABG pCO2 36.2, ABG pO2 65.9 L, ABG HCO3 21.9 L, ABG Total CO2 23.0, ABG O2 Saturation 94, ABG Base Excess -2.9 L, Henry Test Patient unable, Vent Rate 18, Tidal Volume 410, PEEP 5 12/02/24 22:19: WBC 2.5 L D, RBC 2.59 L D, Hgb 8.0 L D, Hct 25.2 L, MCV 97.3, MCH 31.7 H, MCHC 32.5, RDW 13.7, Plt Count 129 L D, MPV 9.7, Neut % (Auto) 77.6, Lymph % (Auto) 16.3, [place] % (Auto) 5.7, Eos % (Auto) 0.0 L, Baso % (Auto) 0.0 L, Neut # (Auto) 1.9, Lymph # (Auto) 0.4 L, [place] # (Auto) 0.1, Eos # (Auto) 0.0, Baso # (Auto) 0.0, Total Counted 100, Neutrophils % (Manual) 74, Lymphocytes % (Manual) 24, Monocytes % (Manual) 2, Platelet Estimate Normal, Polychromasia 1+, Anisocytosis 1+, Ovalocytes 1+, Lactate 8.3 H 12/03/24 02:38: WBC 7.5 D, RBC 3.34 L D, Hgb 10.5 L D, Hct 31.5 L, MCV 94.3, MCH 31.4 H, MCHC 33.3, RDW 13.7, Plt Count 255 D, MPV 9.6, Neut % (Auto) 81.1 H, Lymph % (Auto) 12.2, [place] % (Auto) 6.0, Eos % (Auto) 0.1, Baso % (Auto) 0.1, Neut # (Auto) 6.1, Lymph # (Auto) 0.9, [place] # (Auto) 0.5, Eos # (Auto) 0.0, Baso # (Auto) 0.0, Total Counted 100, Neutrophils % (Manual) 79 H, Lymphocytes % (Manual) 16, Monocytes % (Manual) 5, Platelet Estimate Normal, RBC Morphology Normal 12/03/24 06:43: Specimen Source Right radial, O2 % 60%, ABG pH 7.36, ABG pCO2 38.6, ABG pO2 74.2 L, ABG HCO3 21.5 L, ABG Total CO2 22.7 L, ABG O2 Saturation 95, ABG Base Excess -3.9 L, Henry Test Patient unable, Vent Rate 18, Tidal Volume 410, PEEP 5 12/03/24 06:56: WBC 10.6 D, RBC 3.81 L, Hgb 11.5 L, Hct 35.7 L, MCV 93.7, MCH 30.2, MCHC 32.2, RDW 13.8, Plt Count 306, MPV 9.5, Neut % (Auto) 83.9 H, Lymph % (Auto) 10.2, [place] % (Auto) 5.1, Eos % (Auto) 0.1, Baso % (Auto) 0.3, Neut # (Auto) 8.9 H, Lymph # (Auto) 1.1, [place] # (Auto) 0.5, Eos # (Auto) 0.0, Baso # (Auto) 0.0, Sodium 136, Potassium 4.5, Chloride 109 H, Carbon Dioxide 24, Anion Gap 7.5, BUN 17, Creatinine 0.90, Estimated Creat Clear 63, Estimated GFR 62, Est GFR ( Amer) 75, Glucose 110 H, Calcium 10.5 H, Magnesium 1.5 L D, Total Bilirubin 0.4, AST 38 H D, ALT 18, Alkaline Phosphatase 43, Total Protein 5.3 L D, Albumin 2.8 L D, Globulin 2.5, Albumin/Globulin Ratio 1.1, Lipase 230 Medical History: Medical History (Updated 12/03/24 @ 08:51 by George Jacob MD) Anemia Asthma Type 2 diabetes mellitus History of renal dialysis Peptic ulcer disease Arthritis Fibromyalgia History of TB (tuberculosis) Chronic pain Depression Iron deficiency anemia Cervical (neck) region somatic dysfunction Degenerated intervertebral disc Assessment and Plan Assessment and plan all Dx Assessment and Plan for all problems:: Pharmacokinetic dosing service Objective: Patient: Floor: Age: 69 yo Serum creatinine: 1 mg/dL Height: 61.8 Inches Weight (kg): 74.5 Assessment: IBW (kg): 49.64 Dosing wt(kg): 74.5 Estimated Creatinine clearance (ml/min): 42.2 CRCL method: Cockcroft and Gault using ibw(default). Drug selected: Vancomycin Loading dose (mg): 0 Vd (liters): 59.6 (factor used: 0.8 L/kg) Marcel (hr-1): 0.039 Half life (hrs): 17.77 Recommended dose: 1250 mg Interval: 24 hrs Infusion time (hrs): 2.0 Predicted peak (mcg/mL): 33.2 Predicted trough (mcg/mL): 14.08 Total body weight is being used for vancomycin dosing. PATIENT RECEIVED VANCOMYCIN 1750 MG X1 DOSE OVERNIGHT. Give Vancomycin 1250 mg q 24 hrs with an expected Cpeak of 33.2 mcg/ml and an expected Ctrough of 14.08 mcg/ml ----Vanco only - ignore for aminoglycosides----- CLvanco= 2.32 L/hr AUC 0-24 /NEREYDA Data: NEREYDA 0.5 mcg/mL: AUC/NEREYDA: 1077.6 NEREYDA 1.0 mcg/mL: AUC/NEREYDA: 538.8 --------- NEREYDA 1.5 mcg/mL: AUC/NEREYDA: 359.2 NEREYDA 2.0 mcg/mL: AUC/NEREYDA: 269.4
--- NOTE | 2024-12-03 11:09 | PC.NURSE ---
Decreased Fi02 to 50%.
[2024-12-03] MEDS: FENTANYL CITRATE/PF 1,000 MCG in 0.9 % SODIUM CHLORIDE 80 ML 3.5 MCG IV (11:23)
[2024-12-03] MEDS: MAGNESIUM SULFATE IN WATER 2 GM/50 ML PIGGYBACK IV (11:29)
--- NOTE | 2024-12-03 12:17 | PC.NURSE ---
SBT started at 12:15. Will continue to monitor .
[2024-12-03] MEDS: NOREPINEPHRINE BITARTRATE/D5W 8 MG/250 ML PLAST..BAG 18.75 MG IV (13:17)
[2024-12-03 13:28] LABS: ABG HCO3 21.6 mmhg (22.0-26.0); ABG PCO2 37.9 mmhg (35.0-45.0); ABG PH 7.37 mmol/L (7.35-7.45); ABG PO2 76.5 mmhg (80-100); ABG TCO2 22.7 mmhg (23-27)
[2024-12-03 13:32] LABS: PEEP 5; Source Right Radial
[2024-12-03 13:38] LABS: POC Glucose,Bedside 138 (70-110)
[2024-12-03 13:38] LABS: POC Glucose,Bedside 119 (70-110)
[2024-12-03 13:38] LABS: POC Glucose,Bedside 95 (70-110)
[2024-12-03 14:20] LABS: POC Glucose,Bedside 113 (70-110)
--- NOTE | 2024-12-03 14:32 | PC.NURSE ---
PT PLACED BACK ON SEDATION AND TAKEN OFF SBT PER ANNANGI AND WE WILL TRY ANOTHER SBT IN THE MORNING.
[2024-12-03] MEDS: FLUCONAZOLE IN NACL,ISO-OSM 200 MG/100 ML PIGGYBACK IV (18:09)
[2024-12-03 19:50] LABS: POC Glucose,Bedside 101 (70-110)
[2024-12-03] MEDS: PANTOPRAZOLE 40MG VIAL 40 MG IV (20:30)
[2024-12-03] MEDS: VANCOMYCIN/WATER FOR INJ (PEG) 1.25 GM/250 ML PIGGYBACK IV (20:31)
[2024-12-03] MEDS: SODIUM CHLORIDE 0.9% 10ML VIAL 10 ML IV (20:31)
[2024-12-04] VITALS (83 sets, daily range): BP systolic 107–154; BP diastolic 51–82; PULSE 52–111; RESP 12–25; TEMP 37.7–38.2; O2SAT 93–100; BMI 31.7
[2024-12-04] MEDS: PIPERCILLIN/TAZO 3.375 GM in 0.9 % SODIUM CHLORIDE 50 ML IV ×4 (00:25→18:12)
[2024-12-04 02:20] LABS: POC Glucose,Bedside 84 (70-110)
[2024-12-04] MEDS: NOREPINEPHRINE BITARTRATE/D5W 8 MG/250 ML PLAST..BAG 18.75 MG IV (02:50)
[2024-12-04] MEDS: ACETAMINOPHEN 650MG SUPPOSITORY 650 MG RC ×3 (04:14→22:11)
[2024-12-04] MEDS: LACTATED RINGERS 1000ML 1,000 ML 150 ML IV ×3 (05:43→19:45)
[2024-12-04 07:04] LABS: Hematocrit 30.4 % (37.0-47.0); Immature Granulocytes % 0.8 %; Mean Corpuscular HGB Conc 32.6 g/dL (31.8-35.4); Mean Corpuscular Hemoglobin 30.6 pg (27.0-31.2); Mean Corpuscular Volume 93.8 fl (81-99); Nucleated Red Blood Cells % 0 %; Platelet Count 222 K/mm3 (142-424); Red Blood Count 3.24 M/mm3 (4.20-5.40); Red Cell Distribution Width-SD 50.1 fL; White Blood Count 10.3 K/mm3 (4.8-10.8)
[2024-12-04 07:26] LABS: Alanine Aminotransferase 15 U/L (12-78); Albumin Level 2.4 g/dl (3.5-5.0); Albumin/Globulin Ratio 1.0 (1.1-1.8); Alkaline Phosphatase 65 U/L (38-126); Anion Gap 5.0 mEq/L (5-15); Aspartate Amino Transferase 35 U/L (14-36); Bilirubin,Total 0.4 mg/dl (0.2-1.3); Blood Urea Nitrogen 17 mg/dl (7-17); Calcium 9.6 mg/dl (8.4-10.2); Carbon Dioxide 24 mmol/L (22.0-30.0); Chloride 110 mmol/L (98-107); Creatinine Clearance Estimated 67 mL/min (50-200); Creatinine,Serum 0.90 mg/dl (0.52-1.04); Estimated Glomerular Filt Rate 62 ml/min (>60); GFR (African American) 75 ML/MIN (>60); Globulin 2.5 g/dL (1.3-3.2); Glucose 93 mg/dl (74-100); Magnesium 1.7 mg/dl (1.6-2.3); Potassium 4.0 mmoL/L (3.5-5.1); Sodium 135 mmol/L (136-145); Total Protein,Serum 4.9 g/dl (6.3-8.2)
[2024-12-04 07:48] LABS: Hemoglobin 9.9 g/dL (12.2-16.2)
[2024-12-04 08:15] LABS: POC Glucose,Bedside 89 (70-110)
--- NOTE | 2024-12-04 08:32 | P.PN_ITS ---
Subjective Narrative: Patient remains intubated and sedated. Still on norepinephrine to maintain blood pressure although lower dose. Making urine. Tolerated SBT yesterday. Exam Data for Last 24 hours Vital signs and Labs for Last 24 Hours: Temp Pulse Resp BP Pulse Ox O2 Del Method O2 Flow Rate 100.2 F H 70 18 133/66 99 Mechanical Ventilation 50 12/04/24 06:00 12/04/24 07:00 12/04/24 07:00 12/04/24 07:00 12/04/24 07:00 12/04/24 07:00 12/04/24 04:00 FiO2 50 12/04/24 06:35 Laboratory Results - last 24 hr 12/02/24 21:08: POC Glucose 95 12/03/24 02:01: POC Glucose 119 H 12/03/24 02:38: Total Counted 100, Neutrophils % (Manual) 79 H, Lymphocytes % (Manual) 16, Monocytes % (Manual) 5, Platelet Estimate Normal, RBC Morphology Normal 12/03/24 06:56: Magnesium 1.5 L D, Lipase 230 12/03/24 08:42: POC Glucose 138 H 12/03/24 13:18: Specimen Source Right radial, O2 % 50%, ABG pH 7.37, ABG pCO2 37.9, ABG pO2 76.5 L, ABG HCO3 21.6 L, ABG Total CO2 22.7 L, ABG O2 Saturation 95, ABG Base Excess -3.7 L, Henry Test Patient unable, PEEP 5 12/03/24 14:11: POC Glucose 113 H 12/03/24 19:39: POC Glucose 101 12/04/24 02:13: POC Glucose 84 12/04/24 06:40: WBC 10.3, RBC 3.24 L, Hgb 9.9 L D, Hct 30.4 L, MCV 93.8, MCH 30.6, MCHC 32.6, RDW 14.5, Plt Count 222 D, MPV 9.4, Neut % (Auto) 80.2 H, Lymph % (Auto) 7.8 L, [place] % (Auto) 4.3, Eos % (Auto) 6.6, Baso % (Auto) 0.3, Neut # (Auto) 8.2 H, Lymph # (Auto) 0.8, [place] # (Auto) 0.4, Eos # (Auto) 0.7 H, Baso # (Auto) 0.0, Sodium 135 L, Potassium 4.0, Chloride 110 H, Carbon Dioxide 24, Anion Gap 5.0, BUN 17, Creatinine 0.90, Estimated Creat Clear 67, Estimated GFR 62, Est GFR ( Amer) 75, Glucose 93, Calcium 9.6, Magnesium 1.7 D, Total Bilirubin 0.4, AST 35, ALT 15, Alkaline Phosphatase 65, Total Protein 4.9 L, Albumin 2.4 L D, Globulin 2.5, Albumin/Globulin Ratio 1.0 L 12/04/24 08:06: POC Glucose 89 I & O for Last 24 hours: Intake & Output 12/01/24 12/02/24 12/03/24 12/04/24 11:59 11:59 11:59 11:59 Intake Total 5787.713 / 5787.713 3756.406 / 3756.406 Output Total 2450 / 2485 3220 / 3220 Balance 3337.713 / 3302.713 536.406 / 536.406 Weight 164 lb 3.91 oz 172 lb 9.6 oz Microbiology Reports for the Last 24 Hours: Microbiology 12/02/24 19:25 Buttock CRE Surveillance Culture - Final Negative 12/02/24 19:03 Nose MRSA Culture - Final Negative 12/02/24 20:17 Sputum - Endotracheal Tube Aspirate Gram Stain - Final 12/02/24 20:17 Sputum - Endotracheal Tube Aspirate Sputum Culture - Final No growth. 12/02/24 19:28 Urine,Clean Catch Urine Culture - Final NO GROWTH AFTER 48 HOURS *Routine Abdominal Exam Comments: Dressing dry. PABLITO output thin serous. Progress Note: A&P Assessment and plan (1) Perforated bowel: Status: Acute (2) Peptic ulcer disease: Status: Acute (3) Debility: Status: Acute (4) Type 2 diabetes mellitus: Status: Acute (5) Lumbar radiculopathy: Status: Acute (6) Degenerative disc disease, lumbar: Status: Acute (7) Iron deficiency anemia: Status: Acute (8) Asthma: Status: Acute (9) Bilateral knee pain: Status: Acute (10) Sepsis: Status: Acute (11) Hypotension: Status: Acute (12) Tachycardia: Status: Acute (13) Elevated lactic acid level: Status: Acute (14) Tachypnea: Status: Acute (15) Anemia: Status: Acute Assessment and Plan Assessment and Plan for All Diagnoses:: Continue antibiotics and proton pump inhibitor. When patient is awake and extubated likely plan for upper GI contrast study prior to initiating feeds or removing nasogastric tube.
--- NOTE | 2024-12-04 08:57 | P.PN_ITS ---
Subjective *Date: 12/04/24 *Time: 08:57 Interval history: No new issues noted overnight. SHe had a breathing trial yesterday. Still on Levophed. Medical Exam Vital signs and Labs for Last 24 Hours: Vital Signs Temp Pulse Resp BP Pulse Ox O2 Del Method O2 Flow Rate 12/04/24 08:30 100.4 F H 59 L 18 128/67 99 Mechanical Ventilation 12/04/24 08:15 62 17 125/62 99 Mechanical Ventilation 12/04/24 08:00 61 18 140/66 99 Mechanical Ventilation 12/04/24 07:45 60 18 134/61 98 Mechanical Ventilation 12/04/24 07:30 61 18 134/61 98 Mechanical Ventilation 12/04/24 07:15 70 18 117/58 L 99 Mechanical Ventilation 12/04/24 07:00 70 18 133/66 99 Mechanical Ventilation 12/04/24 06:55 Mechanical Ventilation 12/04/24 06:45 72 18 129/61 98 Mechanical Ventilation 12/04/24 06:35 83 18 108/58 L 98 Mechanical Ventilation 12/04/24 06:10 18 98 12/04/24 06:05 136/64 12/04/24 06:00 100.2 F H 73 18 129/61 97 Mechanical Ventilation 12/04/24 05:30 70 18 141/67 H 97 Mechanical Ventilation 12/04/24 05:00 76 18 135/65 98 Mechanical Ventilation 12/04/24 05:00 Mechanical Ventilation 12/04/24 05:00 76 18 135/65 98 Mechanical Ventilation 12/04/24 04:30 100.8 F H 85 18 112/58 L 99 12/04/24 04:25 81 18 129/63 99 Mechanical Ventilation 12/04/24 04:00 86 18 128/61 97 Mechanical Ventilation 50 12/04/24 04:00 98 Mechanical Ventilation 12/04/24 04:00 84 12/04/24 03:30 84 18 124/59 L 99 Mechanical Ventilation 50 12/04/24 03:00 71 18 139/63 99 Mechanical Ventilation 12/04/24 03:00 Mechanical Ventilation 12/04/24 02:30 67 18 136/64 100 Mechanical Ventilation 12/04/24 02:26 18 12/04/24 02:00 83 18 117/65 97 Mechanical Ventilation 12/04/24 01:30 74 18 120/54 L 99 Mechanical Ventilation 12/04/24 01:20 117/53 L 12/04/24 01:00 73 18 115/56 L 99 Mechanical Ventilation 12/04/24 01:00 Mechanical Ventilation 12/04/24 00:30 74 18 122/58 L 99 Mechanical Ventilation 12/04/24 00:00 99 Mechanical Ventilation 12/04/24 00:00 66 12/04/24 00:00 66 18 146/65 H 98 Mechanical Ventilation 12/03/24 23:30 65 18 154/70 H 99 Mechanical Ventilation 12/03/24 23:10 78 18 98 12/03/24 23:10 76/44 L 12/03/24 23:05 68 18 99 Mechanical Ventilation 12/03/24 23:05 128/61 12/03/24 23:00 71 18 99 12/03/24 23:00 116/60 12/03/24 23:00 Mechanical Ventilation 12/03/24 22:55 68 18 99 Mechanical Ventilation 12/03/24 22:55 130/61 12/03/24 22:30 66 18 133/61 99 Mechanical Ventilation 12/03/24 22:14 18 12/03/24 22:01 77 14 120/63 98 Mechanical Ventilation 12/03/24 22:00 100 12/03/24 21:25 64 18 135/64 99 Mechanical Ventilation 12/03/24 21:05 65 18 130/59 L 99 12/03/24 21:00 65 18 125/58 L 99 Mechanical Ventilation 12/03/24 21:00 Mechanical Ventilation 12/03/24 20:40 72 18 115/52 L 99 Mechanical Ventilation 12/03/24 20:30 70 18 124/61 99 Mechanical Ventilation 12/03/24 20:15 18 97 12/03/24 20:00 98.8 F 66 18 146/70 H 99 Mechanical Ventilation 12/03/24 20:00 60 12/03/24 19:47 98 Mechanical Ventilation 12/03/24 19:30 66 18 150/75 H 98 Mechanical Ventilation 12/03/24 19:15 56 L 18 162/73 H 98 Mechanical Ventilation 12/03/24 19:10 55 L 18 162/76 H 98 Mechanical Ventilation 12/03/24 19:05 167/74 H 12/03/24 19:01 54 L 18 137/76 99 Mechanical Ventilation 12/03/24 18:57 75/44 L 12/03/24 18:55 74/43 L 12/03/24 18:53 71 18 72/46 L 98 Mechanical Ventilation 12/03/24 18:52 77 14 76/40 L 94 L Mechanical Ventilation 12/03/24 18:51 80/43 L 12/03/24 18:51 74/38 L 12/03/24 18:47 Mechanical Ventilation 12/03/24 18:35 62 18 131/64 98 Mechanical Ventilation 12/03/24 18:25 64 18 124/64 99 Mechanical Ventilation 12/03/24 18:10 69 18 118/61 98 Mechanical Ventilation 12/03/24 18:00 19 12/03/24 18:00 69 18 128/67 99 Mechanical Ventilation 12/03/24 17:45 72 18 127/61 99 Mechanical Ventilation 12/03/24 17:30 71 18 125/66 99 Mechanical Ventilation 12/03/24 17:15 77 18 123/62 99 Mechanical Ventilation 12/03/24 17:05 70 18 123/66 99 Mechanical Ventilation 12/03/24 17:00 74 18 116/64 99 Mechanical Ventilation 12/03/24 17:00 Mechanical Ventilation 12/03/24 16:56 70 18 140/63 98 Mechanical Ventilation 12/03/24 16:45 99.3 F 86 18 109/59 L 99 Mechanical Ventilation 12/03/24 16:40 82 18 125/64 98 Mechanical Ventilation 12/03/24 16:30 81 18 121/62 98 Mechanical Ventilation 12/03/24 16:20 76 18 125/63 98 Mechanical Ventilation 12/03/24 16:15 75 18 117/61 97 Mechanical Ventilation 12/03/24 16:00 80 12/03/24 16:00 81 18 110/58 L 97 Mechanical Ventilation 12/03/24 16:00 98 Mechanical Ventilation 12/03/24 15:45 74 18 130/65 97 Mechanical Ventilation 12/03/24 15:40 65 18 156/74 H 97 Mechanical Ventilation 12/03/24 15:38 60 18 168/84 H 97 Mechanical Ventilation 12/03/24 15:33 76 15 112/75 97 Mechanical Ventilation 12/03/24 15:26 64/40 L 12/03/24 15:25 103 H 18 65/37 L 93 L Mechanical Ventilation 12/03/24 15:16 81 18 112/67 95 Mechanical Ventilation 12/03/24 15:01 86 18 145/72 H 97 Mechanical Ventilation 12/03/24 15:00 Mechanical Ventilation 12/03/24 14:45 100.3 F H 110 H 16 111/59 L 97 Mechanical Ventilation 12/03/24 14:42 18 95 12/03/24 14:35 108 H 12 88/51 L 96 Mechanical Ventilation 12/03/24 14:27 95 H 17 148/81 H 96 Mechanical Ventilation 12/03/24 14:15 123 H 18 111/56 L 95 Mechanical Ventilation 12/03/24 14:00 120 H 20 110/64 97 Mechanical Ventilation 12/03/24 13:41 120 H 21 105/67 L 94 L Mechanical Ventilation 12/03/24 13:31 118 H 19 105/70 L 95 Mechanical Ventilation 12/03/24 13:20 122 H 22 109/64 L 96 Mechanical Ventilation 12/03/24 13:10 115 H 17 113/64 97 Mechanical Ventilation 12/03/24 13:01 117 H 18 106/64 L 97 Mechanical Ventilation 12/03/24 13:00 Mechanical Ventilation 12/03/24 12:45 121 H 18 114/67 97 Mechanical Ventilation 12/03/24 12:31 120 H 22 101/58 L 97 Mechanical Ventilation 12/03/24 12:16 14 12/03/24 12:15 113 H 28 H 119/59 L 98 Mechanical Ventilation 12/03/24 12:14 Mechanical Ventilation 12/03/24 12:00 98 H 15 90/54 L 97 Mechanical Ventilation 12/03/24 12:00 100 H 12/03/24 11:45 84 18 111/59 L 96 Mechanical Ventilation 12/03/24 11:30 86 18 105/52 L 96 Mechanical Ventilation 12/03/24 11:10 82 14 95/50 L 96 Mechanical Ventilation 12/03/24 11:05 18 97 12/03/24 11:00 81 18 93/53 L 96 Mechanical Ventilation 12/03/24 11:00 Mechanical Ventilation 12/03/24 10:45 81 18 102/58 L 97 Mechanical Ventilation 12/03/24 10:30 87 18 96/54 L 96 Mechanical Ventilation 12/03/24 10:15 87 18 91/46 L 96 Mechanical Ventilation 12/03/24 10:00 80 18 100/51 L 96 Mechanical Ventilation 12/03/24 09:50 81 18 100/54 L 96 Mechanical Ventilation 12/03/24 09:40 86 18 99/54 L 96 Mechanical Ventilation 12/03/24 09:30 86 18 93/53 L 96 Mechanical Ventilation 12/03/24 09:20 88 18 104/53 L 96 Mechanical Ventilation 12/03/24 09:10 79 18 113/58 L 96 Mechanical Ventilation 12/03/24 09:05 123/65 12/03/24 09:04 75 18 96 12/03/24 09:00 Mechanical Ventilation 12/03/24 09:00 73 18 96 12/03/24 09:00 130/68 FiO2 12/04/24 08:30 50 12/04/24 08:15 50 12/04/24 08:00 50 12/04/24 07:45 50 12/04/24 07:30 50 12/04/24 07:15 50 12/04/24 07:00 12/04/24 06:55 12/04/24 06:45 12/04/24 06:35 50 12/04/24 06:10 50 12/04/24 06:05 12/04/24 06:00 50 12/04/24 05:30 50 12/04/24 05:00 50 12/04/24 05:00 12/04/24 05:00 50 12/04/24 04:30 50 12/04/24 04:25 50 12/04/24 04:00 12/04/24 04:00 12/04/24 04:00 12/04/24 03:30 12/04/24 03:00 50 12/04/24 03:00 12/04/24 02:30 50 12/04/24 02:26 50 12/04/24 02:00 50 12/04/24 01:30 50 12/04/24 01:20 12/04/24 01:00 50 12/04/24 01:00 12/04/24 00:30 50 12/04/24 00:00 12/04/24 00:00 12/04/24 00:00 50 12/03/24 23:30 50 12/03/24 23:10 12/03/24 23:10 12/03/24 23:05 50 12/03/24 23:05 12/03/24 23:00 12/03/24 23:00 12/03/24 23:00 12/03/24 22:55 12/03/24 22:55 12/03/24 22:30 50 12/03/24 22:14 50 12/03/24 22:01 50 12/03/24 22:00 50 12/03/24 21:25 50 12/03/24 21:05 50 12/03/24 21:00 50 12/03/24 21:00 12/03/24 20:40 12/03/24 20:30 50 12/03/24 20:15 50 12/03/24 20:00 50 12/03/24 20:00 12/03/24 19:47 12/03/24 19:30 50 12/03/24 19:15 12/03/24 19:10 50 12/03/24 19:05 12/03/24 19:01 50 12/03/24 18:57 12/03/24 18:55 12/03/24 18:53 50 12/03/24 18:52 50 12/03/24 18:51 12/03/24 18:51 12/03/24 18:47 12/03/24 18:35 50 12/03/24 18:25 50 12/03/24 18:10 50 12/03/24 18:00 50 12/03/24 18:00 50 12/03/24 17:45 50 12/03/24 17:30 50 12/03/24 17:15 50 12/03/24 17:05 50 12/03/24 17:00 50 12/03/24 17:00 12/03/24 16:56 50 12/03/24 16:45 50 12/03/24 16:40 50 12/03/24 16:30 50 12/03/24 16:20 50 12/03/24 16:15 80 12/03/24 16:00 12/03/24 16:00 80 12/03/24 16:00 80 12/03/24 15:45 12/03/24 15:40 12/03/24 15:38 12/03/24 15:33 12/03/24 15:26 12/03/24 15:25 12/03/24 15:16 12/03/24 15:01 12/03/24 15:00 12/03/24 14:45 12/03/24 14:42 50 12/03/24 14:35 12/03/24 14:27 80 12/03/24 14:15 12/03/24 14:00 80 12/03/24 13:41 12/03/24 13:31 12/03/24 13:20 12/03/24 13:10 12/03/24 13:01 80 12/03/24 13:00 12/03/24 12:45 12/03/24 12:31 80 12/03/24 12:16 50 12/03/24 12:15 80 12/03/24 12:14 12/03/24 12:00 80 12/03/24 12:00 12/03/24 11:45 80 12/03/24 11:30 12/03/24 11:10 80 12/03/24 11:05 60 12/03/24 11:00 80 12/03/24 11:00 12/03/24 10:45 80 12/03/24 10:30 12/03/24 10:15 12/03/24 10:00 12/03/24 09:50 12/03/24 09:40 12/03/24 09:30 12/03/24 09:20 12/03/24 09:10 12/03/24 09:05 12/03/24 09:04 12/03/24 09:00 12/03/24 09:00 12/03/24 09:00 Intake and Output 12/03/24 12/04/24 12/04/24 23:59 07:59 15:59 Intake Total 1438.310 / 4878.709 2090.058 / 2113.158 24.2113.158 Output Total 1685 / 3740 1060 / 1280 220 / 1280 Balance -246.690 / 0756.468 5145.058 / 834.158 -195.9 / 834.158 Intake: Intake, Total IV Amount 1438.310 / 4878.709 2090.058 / 2113.158 24.2113.158 Fentanyl Citrate/Pf 1,000 mcg 34 / 34 In 0.9 % Sodium Chloride 80 ml @ 75 MCG/HR 7.5 mls/hr IV . [id number] [facility] Rx#:[id number] Lactated Ringers 1000ML 1,000 1095 / 2533 1493 / 1493 ml @ 150 mls/hr IV .[id number] [facility] Rx#:[id number] Magnesium Sulfate in Water 2 gm 50 / 50 In 50 ml @ 50 mls/hr IV ONCE ONE Rx#:[id number] Norepinephrine Bitartrate/D5w 8 173 / 173 mg In 250 ml @ 8 MCG/MIN 15 mls/hr IV .[id number] [facility] Rx#: [id number] Pipercillin/Tazo 3.375 gm In 0. 150 / 150 9 % Sodium Chloride 50 ml @ 100 mls/hr IV Q6H [facility] Rx#:[id number] propofoL 100 ml @ 5 MCG/KG/MIN 90 / 90 2.226 mls/hr IV .Q24H [facility] Rx#: [id number] Output: Output, Urine Amount 550 / 2045 Output, Urine Amount (Catheter) 680 / 780 950 / 1170 220 / 1170 Ramirez 680 / 780 950 / 1170 220 / 1170 Output, Gastric Drainage Amount 300 / 330 Left Nare 300 / 330 Output, Drainage Amount 155 / 535 110 / 110 Right Upper Abdomen 155 / 535 110 / 110 Other: Number of Unmeasured Voids 0 0 Weight 164 lb 3.91 oz 172 lb 9.6 oz Patient Weight 12/04/24 23:59 Weight 172 lb 9.6 oz Laboratory Results - last 24 hr 12/02/24 21:08: POC Glucose 95 12/03/24 02:01: POC Glucose 119 H 12/03/24 02:38: Total Counted 100, Neutrophils % (Manual) 79 H, Lymphocytes % (Manual) 16, Monocytes % (Manual) 5, Platelet Estimate Normal, RBC Morphology Normal 12/03/24 06:56: Magnesium 1.5 L D, Lipase 230 12/03/24 08:42: POC Glucose 138 H 12/03/24 13:18: Specimen Source Right radial, O2 % 50%, ABG pH 7.37, ABG pCO2 37.9, ABG pO2 76.5 L, ABG HCO3 21.6 L, ABG Total CO2 22.7 L, ABG O2 Saturation 95, ABG Base Excess -3.7 L, Henry Test Patient unable, PEEP 5 12/03/24 14:11: POC Glucose 113 H 12/03/24 19:39: POC Glucose 101 12/04/24 02:13: POC Glucose 84 12/04/24 06:40: WBC 10.3, RBC 3.24 L, Hgb 9.9 L D, Hct 30.4 L, MCV 93.8, MCH 30.6, MCHC 32.6, RDW 14.5, Plt Count 222 D, MPV 9.4, Neut % (Auto) 80.2 H, Lymph % (Auto) 7.8 L, [place] % (Auto) 4.3, Eos % (Auto) 6.6, Baso % (Auto) 0.3, Ne ut # (Auto) 8.2 H, Lymph # (Auto) 0.8, [place] # (Auto) 0.4, Eos # (Auto) 0.7 H, Baso # (Auto) 0.0, Sodium 135 L, Potassium 4.0, Chloride 110 H, Carbon Dioxide 24, Anion Gap 5.0, BUN 17, Creatinine 0.90, Estimated Creat Clear 67, Estimated GFR 62, Est GFR ( Amer) 75, Glucose 93, Calcium 9.6, Magnesium 1.7 D, Total Bilirubin 0.4, AST 35, ALT 15, Alkaline Phosphatase 65, Total Protein 4.9 L, Albumin 2.4 L D, Globulin 2.5, Albumin/Globulin Ratio 1.0 L 12/04/24 08:06: POC Glucose 89 I & O for Labs for Last 24 Hours: Intake & Output 12/01/24 12/02/24 12/03/24 12/04/24 23:59 23:59 23:59 23:59 Intake Total 2551.252 / 3651.252 4878.709 / 4878.709 2114.158 / 2114.158 Output Total 650 / 1195 3740 / 3740 1280 / 1280 Balance 1901.252 / 2456.252 1138.709 / 1138.709 834.158 / 834.158 Weight 163 lb 9 oz 164 lb 3.91 oz 172 lb 9.6 oz Microbiology Reports for the Last 24 Hours: Microbiology 12/02/24 19:25 Buttock CRE Surveillance Culture - Final Negative 12/02/24 19:03 Nose MRSA Culture - Final Negative 12/02/24 20:17 Sputum - Endotracheal Tube Aspirate Gram Stain - Final 12/02/24 20:17 Sputum - Endotracheal Tube Aspirate Sputum Culture - Final No growth. 12/02/24 19:28 Urine,Clean Catch Urine Culture - Final NO GROWTH AFTER 48 HOURS Comment:: Intubated and sedated Respiratory: Present patient mechanically ventilated and CTA bilaterally Cardiac: Present Reg Rate and Rhythm Comment:: SCD's inplace Assessment and Plan *Assessment and plan (1) Perforated bowel: Status: Acute Category: Medical Code(s): K63.1 - Perforation of intestine (nontraumatic) (2) Peptic ulcer disease: Status: Acute Category: Medical Code(s): K27.9 - Peptic ulcer, site unspecified, unspecified as acute or chronic, without hemorrhage or perforation (3) Debility: Status: Acute Category: Medical Code(s): R53.81 - Other malaise (4) Type 2 diabetes mellitus: Status: Acute Category: Medical Code(s): E11.9 - Type 2 diabetes mellitus without complications (5) Lumbar radiculopathy: Status: Acute Category: Medical Code(s): M54.16 - Radiculopathy, lumbar region (6) Degenerative disc disease, lumbar: Status: Acute Category: Medical Code(s): M51.369 - Other intervertebral disc degeneration, lumbar region without mention of lumbar back pain or lower extremity pain (7) Iron deficiency anemia: Status: Acute Category: Medical Code(s): D50.9 - Iron deficiency anemia, unspecified (8) Asthma: Status: Acute Category: Medical Code(s): J45.909 - Unspecified asthma, uncomplicated (9) Bilateral knee pain: Status: Acute Qualifiers: Chronicity: chronic Qualified Code(s): M25.561 - Pain in right knee; M25.562 - Pain in left knee; G89.29 - Other chronic pain Category: Medical Code(s): M25.561 - Pain in right knee; M25.562 - Pain in left knee (10) Sepsis: Status: Acute Category: Medical Code(s): A41.9 - Sepsis, unspecified organism (11) Hypotension: Status: Acute Category: Medical Code(s): I95.9 - Hypotension, unspecified (12) Tachycardia: Status: Acute Category: Medical Code(s): R00.0 - Tachycardia, unspecified (13) Elevated lactic acid level: Status: Acute Category: Medical Code(s): R79.89 - Other specified abnormal findings of blood chemistry (14) Tachypnea: Status: Acute Category: Medical Code(s): R06.82 - Tachypnea, not elsewhere classified (15) Anemia: Status: Acute Category: Medical Code(s): D64.9 - Anemia, unspecified Plan Pt is POD #2 s/p repair of perforated peptic ulcer. Plan another breathing trial today. Cont. Vanc, Zosyn, Fluconazole and PPI. Monitor labs. Plan of care discussed with patient's family.
--- NOTE | 2024-12-04 12:18 | PC.NURSE ---
SBT started at this time, 09/19 40%
[2024-12-04 14:26] LABS: ABG HCO3 21.4 mmhg (22.0-26.0); ABG PCO2 28.1 mmhg (35.0-45.0); ABG PH 7.50 mmol/L (7.35-7.45); ABG PO2 107.4 mmhg (80-100); ABG TCO2 22.2 mmhg (23-27)
[2024-12-04 14:27] LABS: PEEP 5; Source Left Radial
--- NOTE | 2024-12-04 14:27 | PC.NURSE ---
pt placed back on vent settings at this time.
[2024-12-04 14:28] LABS: POC Glucose,Bedside 94 (70-110)
[2024-12-04] MEDS: FLUCONAZOLE IN NACL,ISO-OSM 200 MG/100 ML PIGGYBACK IV (18:08)
--- NOTE | 2024-12-04 18:14 | PC.NURSE ---
various Range of motion exercises were performed on patient; flexion , extension, and hyper extension of bilateral wrists x5 Radial deviation and ulnar deviation of bilateral wrists x5 flexion and extension of bilateral elbows x5 abduction and adduction of bilateral shoulders x5 flexion and extension of bilateral hips x5 abduction and adduction of bilateral hips x5 flexion and extension of bilateral knees x5 flexion and extension of bilateral ankles x5 RN changed mepilex dressing on patients coccyx, patient is on a every two hour turn schedule to promote skin integrity, preventative dressings were changed on patients bilateral heels and all four extremities are elevated by pillows. Patients head of bed is currently at 40 degrees due to patient being on aspiration precautions. Oral care is being done every two hours to promote dental hygiene. ICD's were placed back onto patient's legs bilaterally. (SCD's thigh high bilaterally) Patient's last rectal temp was 99.9 rectally. RN is aware. fan is on patient and an ice pack has been rotated on and off patient of groin sites and axial sites. Ice packs were removed every 30 mins to do a skin assessment of the area, a skin barrier was also in place as well.
[2024-12-04 19:52] LABS: POC Glucose,Bedside 76 (70-110)
[2024-12-04] MEDS: FENTANYL CITRATE/PF 1,000 MCG in 0.9 % SODIUM CHLORIDE 80 ML 1 MCG IV (20:30)
[2024-12-04] MEDS: PANTOPRAZOLE 40MG VIAL 40 MG IV (21:18)
[2024-12-04] MEDS: VANCOMYCIN/WATER FOR INJ (PEG) 1.25 GM/250 ML PIGGYBACK IV (21:18)
[2024-12-04] MEDS: SODIUM CHLORIDE 0.9% 10ML VIAL 10 ML IV (21:18)
[2024-12-04 21:37] LABS: Vancomycin,Trough 10.5 ug/mL (5.0-10.0)
[2024-12-04] MEDS: PHA TO NURSING INSTRUCTION 1 EACH NOTAPPLIC (21:40)
[2024-12-05] VITALS (79 sets, daily range): BP systolic 90–157; BP diastolic 50–88; PULSE 62–114; RESP 15–32; TEMP 37.3–38.1; O2SAT 91–100; BMI 32.3
[2024-12-05] MEDS: PIPERCILLIN/TAZO 3.375 GM in 0.9 % SODIUM CHLORIDE 50 ML IV ×4 (00:55→18:16)
[2024-12-05 02:04] LABS: POC Glucose,Bedside 70 (70-110)
[2024-12-05] MEDS: LACTATED RINGERS 1000ML 1,000 ML 150 ML IV ×2 (02:36→08:03)
[2024-12-05 04:43] LABS: Vancomycin,Peak 21.4 ug/ml (11-39)
[2024-12-05 06:29] LABS: Anion Gap 6.3 mEq/L (5-15); Blood Urea Nitrogen 11 mg/dl (7-17); Carbon Dioxide 22 mmol/L (22.0-30.0); Chloride 109 mmol/L (98-107); Potassium 3.3 mmoL/L (3.5-5.1); Sodium 134 mmol/L (136-145)
[2024-12-05 06:30] LABS: Calcium 8.9 mg/dl (8.4-10.2); Creatinine Clearance Estimated 67 mL/min (50-200); Creatinine,Serum 0.60 mg/dl (0.52-1.04); Estimated Glomerular Filt Rate 99 ml/min (>60); GFR (African American) 120 ML/MIN (>60); Glucose 68 mg/dl (74-100)
[2024-12-05 06:34] LABS: White Blood Count 7.7 K/mm3 (4.8-10.8)
[2024-12-05 06:35] LABS: Hematocrit 24.9 % (37.0-47.0); Mean Corpuscular HGB Conc 32.1 g/dL (31.8-35.4); Mean Corpuscular Hemoglobin 30.5 pg (27.0-31.2); Mean Corpuscular Volume 95.0 fl (81-99); Platelet Count 188 K/mm3 (142-424); Red Blood Count 2.62 M/mm3 (4.20-5.40); Red Cell Distribution Width-SD 49.8 fL
[2024-12-05 06:36] LABS: Immature Granulocytes % 0.4 %; Nucleated Red Blood Cells % 0 %
--- NOTE | 2024-12-05 06:56 | P.PN_ITS ---
Subjective Narrative: Patient remains intubated. Now off sedation and more alert. Off Levophed. Blood pressure good. Exam Data for Last 24 hours Vital signs and Labs for Last 24 Hours: Temp Pulse Resp BP Pulse Ox O2 Del Method O2 Flow Rate 99.5 F 94 H 18 126/68 94 L Mechanical Ventilation 12/05/24 04:20 12/05/24 06:30 12/05/24 06:30 12/05/24 06:30 12/05/24 06:30 12/05/24 06:30 12/05/24 06:30 FiO2 12/05/24 06:02 Laboratory Results - last 24 hr 12/04/24 06:40: WBC 10.3, RBC 3.24 L, Hgb 9.9 L D, Hct 30.4 L, MCV 93.8, MCH 30.6, MCHC 32.6, RDW 14.5, Plt Count 222 D, MPV 9.4, Neut % (Auto) 80.2 H, Lymph % (Auto) 7.8 L, Barnes % (Auto) 4.3, Eos % (Auto) 6.6, Baso % (Auto) 0.3, Neut # (Auto) 8.2 H, Lymph # (Auto) 0.8, Barnes # (Auto) 0.4, Eos # (Auto) 0.7 H, Baso # (Auto) 0.0, Sodium 135 L, Potassium 4.0, Chloride 110 H, Carbon Dioxide 24, Anion Gap 5.0, BUN 17, Creatinine 0.90, Estimated Creat Clear 67, Estimated GFR 62, Est GFR ( Amer) 75, Glucose 93, Calcium 9.6, Magnesium 1.7 D, Total Bilirubin 0.4, AST 35, ALT 15, Alkaline Phosphatase 65, Total Protein 4.9 L, Albumin 2.4 L D, Globulin 2.5, Albumin/Globulin Ratio 1.0 L 12/04/24 08:06: POC Glucose 89 12/04/24 14:21: POC Glucose 94 12/04/24 14:23: Specimen Source Left radial, O2 % 40%, ABG pH 7.50 H, ABG pCO2 28.1 L, ABG pO2 107.4 H, ABG HCO3 21.4 L, ABG Total CO2 22.2 L, ABG O2 Saturation 99, ABG Base Excess -1.8, Henry Test Acceptable, PEEP 5 12/04/24 19:34: POC Glucose 76 12/04/24 20:48: Vancomycin Trough 10.5 H 12/05/24 01:10: Vancomycin Peak 21.4 12/05/24 01:54: POC Glucose 70 12/05/24 05:31: WBC 7.7 D, RBC 2.62 L, Hct 24.9 L, MCV 95.0, MCH 30.5, MCHC 32.1, RDW 14.3, Plt Count 188, MPV 9.9, Neut % (Auto) 77.1, Lymph % (Auto) 10.8, Barnes % (Auto) 5.5, Eos % (Auto) 5.9, Baso % (Auto) 0.3, Neut # (Auto) 5.9, Lymph # (Auto) 0.8, Barnes # (Auto) 0.4, Eos # (Auto) 0.5 H, Baso # (Auto) 0.0, Sodium 134 L, Potassium 3.3 L, Chloride 109 H, Carbon Dioxide 22, Anion Gap 6.3, BUN 11 D, Creatinine 0.60 D, Estimated Creat Clear 67, Estimated GFR 99, Est GFR ( Amer) 120 D, Glucose 68 L D, Calcium 8.9 I & O for Last 24 hours: Intake & Output 12/02/24 12/03/24 12/04/24 12/05/24 11:59 11:59 11:59 11:59 Intake Total 5787.713 / 5787.713 3825.806 / 3825.806 2820.655 / 2820.655 Output Total 2450 / 2485 3475 / 3475 2095 / 2095 Balance 3337.713 / 3302.713 350.806 / 350.806 725.655 / 725.655 Weight 164 lb 3.91 oz 172 lb 9.6 oz 176 lb 1.6 oz Microbiology Reports for the Last 24 Hours: Microbiology 12/02/24 19:25 Buttock CRE Surveillance Culture - Final Negative 12/02/24 19:03 Nose MRSA Culture - Final Negative 12/02/24 20:17 Sputum - Endotracheal Tube Aspirate Gram Stain - Final 12/02/24 20:17 Sputum - Endotracheal Tube Aspirate Sputum Culture - Final No growth. 12/02/24 19:28 Urine,Clean Catch Urine Culture - Final NO GROWTH AFTER 48 HOURS *Routine Abdominal Exam Abdominal: Present soft Comments: PABLITO with thin serous drainage Progress Note: A&P Assessment and plan (1) Perforated bowel: Status: Acute Assessment and plan: Continue current care (2) Peptic ulcer disease: Status: Acute (3) Debility: Status: Acute (4) Type 2 diabetes mellitus: Status: Acute (5) Lumbar radiculopathy: Status: Acute (6) Degenerative disc disease, lumbar: Status: Acute (7) Iron deficiency anemia: Status: Acute (8) Asthma: Status: Acute (9) Bilateral knee pain: Status: Acute (10) Sepsis: Status: Acute (11) Hypotension: Status: Acute (12) Tachycardia: Status: Acute (13) Elevated lactic acid level: Status: Acute (14) Tachypnea: Status: Acute (15) Anemia: Status: Acute
--- NOTE | 2024-12-05 07:01 | PC.NURSE ---
Pt placed in SBT at this time. 09/19 30%
--- NOTE | 2024-12-05 07:50 | P.PN_ITS ---
Subjective *Date: 12/05/24 *Time: 07:50 Medical Exam Vital signs and Labs for Last 24 Hours: Vital Signs Temp Pulse Resp BP Pulse Ox O2 Del Method O2 Flow Rate 12/05/24 07:02 20 93 L 12/05/24 07:00 104 H 20 137/76 93 L Mechanical Ventilation 12/05/24 06:45 99.2 F 95 H 18 129/72 93 L Mechanical Ventilation 12/05/24 06:30 94 H 18 126/68 94 L Mechanical Ventilation 12/05/24 06:02 18 92 L 12/05/24 06:00 84 18 106/53 L 92 L Mechanical Ventilation 12/05/24 05:30 87 20 114/65 93 L Mechanical Ventilation 12/05/24 05:00 64 18 102/50 L 92 L Mechanical Ventilation 12/05/24 05:00 Mechanical Ventilation 12/05/24 05:00 63 18 102/50 L 92 L Mechanical Ventilation 12/05/24 04:20 99.5 F 77 19 128/76 96 Mechanical Ventilation 12/05/24 04:00 66 12/05/24 04:00 93 L Mechanical Ventilation 12/05/24 03:30 62 18 112/58 L 94 L Mechanical Ventilation 12/05/24 03:05 18 98 12/05/24 03:00 80 18 114/60 93 L Mechanical Ventilation 12/05/24 03:00 78 18 114/60 93 L Mechanical Ventilation 12/05/24 03:00 Mechanical Ventilation 12/05/24 02:30 71 18 100/58 L 94 L Mechanical Ventilation 12/05/24 02:00 81 18 94 L Mechanical Ventilation 12/05/24 02:00 95 12/05/24 01:59 82 18 106/54 L 94 L Mechanical Ventilation 12/05/24 01:00 70 18 91/51 L 94 L Mechanical Ventilation 30 12/05/24 01:00 Mechanical Ventilation 12/05/24 00:51 19 98 12/05/24 00:00 100.5 F H 96 H 18 104/55 L 95 Mechanical Ventilation 12/05/24 00:00 90 12/05/24 00:00 95 Mechanical Ventilation 12/04/24 23:36 19 98 12/04/24 23:30 80 18 114/56 L 94 L Mechanical Ventilation 12/04/24 23:00 55 L 18 137/63 96 Mechanical Ventilation 12/04/24 23:00 59 L 18 137/63 94 L Mechanical Ventilation 12/04/24 23:00 Mechanical Ventilation 12/04/24 22:30 61 18 128/62 94 L Mechanical Ventilation 30 12/04/24 22:00 95 12/04/24 22:00 100.8 F H 63 19 123/54 L 96 Mechanical Ventilation 12/04/24 21:00 66 18 129/63 96 Mechanical Ventilation 12/04/24 21:00 Mechanical Ventilation 12/04/24 20:30 83 12 114/59 L 96 Mechanical Ventilation 12/04/24 20:15 78 16 138/62 96 12/04/24 20:00 95 Mechanical Ventilation 12/04/24 20:00 60 12/04/24 20:00 100.2 F H 64 15 96 Mechanical Ventilation 12/04/24 19:30 62 18 111/60 95 Mechanical Ventilation 12/04/24 19:00 67 18 123/65 96 Mechanical Ventilation 12/04/24 18:48 Mechanical Ventilation 12/04/24 18:45 66 17 121/65 96 Mechanical Ventilation 12/04/24 18:35 18 98 12/04/24 18:30 58 L 18 136/67 97 Mechanical Ventilation 12/04/24 18:15 52 L 18 126/64 96 Mechanical Ventilation 12/04/24 18:00 99.9 F H 52 L 18 125/62 96 Mechanical Ventilation 12/04/24 17:45 54 L 18 131/63 96 Mechanical Ventilation 12/04/24 17:30 54 L 18 128/65 96 Mechanical Ventilation 12/04/24 17:15 57 L 18 129/65 96 Mechanical Ventilation 12/04/24 17:00 56 L 18 145/70 H 97 Mechanical Ventilation 12/04/24 17:00 Mechanical Ventilation 12/04/24 16:45 52 L 18 131/64 97 Mechanical Ventilation 12/04/24 16:30 57 L 18 118/61 97 Mechanical Ventilation 12/04/24 16:16 62 18 131/64 95 Mechanical Ventilation 12/04/24 16:00 60 12/04/24 16:00 100.6 F H 59 L 18 112/64 96 Mechanical Ventilation 12/04/24 16:00 96 Mechanical Ventilation 12/04/24 15:45 57 L 18 127/62 95 Mechanical Ventilation 12/04/24 15:30 54 L 18 135/68 93 L Mechanical Ventilation 12/04/24 15:15 55 L 18 133/64 95 Mechanical Ventilation 12/04/24 15:00 100.4 F H 55 L 17 124/65 93 L Mechanical Ventilation 12/04/24 15:00 Mechanical Ventilation 12/04/24 14:45 61 18 119/61 93 L Mechanical Ventilation 12/04/24 14:31 71 18 111/57 L 95 Mechanical Ventilation 12/04/24 14:30 18 95 12/04/24 14:16 111 H 25 H 147/76 H 93 L Mechanical Ventilation 12/04/24 14:00 78 25 H 137/68 97 Mechanical Ventilation 12/04/24 13:45 66 18 135/69 97 Mechanical Ventilation 12/04/24 13:30 72 19 132/64 98 Mechanical Ventilation 12/04/24 13:15 74 20 127/60 97 Mechanical Ventilation 12/04/24 13:00 86 24 134/71 99 Mechanical Ventilation 12/04/24 13:00 Mechanical Ventilation 12/04/24 12:45 96 H 22 131/76 99 Mechanical Ventilation 12/04/24 12:30 92 H 22 138/74 99 Mechanical Ventilation 12/04/24 12:18 14 99 12/04/24 12:15 72 18 135/66 100 Mechanical Ventilation 12/04/24 12:00 90 12/04/24 12:00 82 17 135/67 95 Mechanical Ventilation 12/04/24 12:00 99 Mechanical Ventilation 12/04/24 11:45 67 18 133/67 99 Mechanical Ventilation 12/04/24 11:30 65 18 119/60 98 Mechanical Ventilation 12/04/24 11:15 66 18 132/65 98 Mechanical Ventilation 12/04/24 11:00 81 18 154/82 H 96 Mechanical Ventilation 12/04/24 11:00 Mechanical Ventilation 12/04/24 10:45 65 18 128/69 99 Mechanical Ventilation 12/04/24 10:40 18 99 12/04/24 10:30 60 18 134/63 100 Mechanical Ventilation 12/04/24 10:15 60 18 123/61 99 Mechanical Ventilation 12/04/24 10:00 64 18 127/66 99 Mechanical Ventilation 12/04/24 09:45 68 18 107/51 L 100 Mechanical Ventilation 12/04/24 09:31 67 18 112/52 L 100 Mechanical Ventilation 12/04/24 09:15 62 18 131/63 99 Mechanical Ventilation 12/04/24 09:00 64 18 129/58 L 98 Mechanical Ventilation 12/04/24 09:00 Mechanical Ventilation 12/04/24 08:57 Mechanical Ventilation 12/04/24 08:45 67 18 128/56 L 99 Mechanical Ventilation 12/04/24 08:30 100.4 F H 59 L 18 128/67 99 Mechanical Ventilation 12/04/24 08:15 62 17 125/62 99 Mechanical Ventilation 12/04/24 08:00 70 12/04/24 08:00 61 18 140/66 99 Mechanical Ventilation FiO2 12/05/24 07:02 30 12/05/24 07:00 30 12/05/24 06:45 30 12/05/24 06:30 12/05/24 06:02 12/05/24 06:00 12/05/24 05:30 12/05/24 05:00 12/05/24 05:00 12/05/24 05:00 12/05/24 04:20 12/05/24 04:00 12/05/24 04:00 12/05/24 03:30 12/05/24 03:05 12/05/24 03:00 12/05/24 03:00 12/05/24 03:00 12/05/24 02:30 12/05/24 02:00 12/05/24 02:00 12/05/24 01:59 12/05/24 01:00 12/05/24 01:00 12/05/24 00:51 12/05/24 00:00 12/05/24 00:00 12/05/24 00:00 12/04/24 23:36 12/04/24 23:30 12/04/24 23:00 12/04/24 23:00 12/04/24 23:00 12/04/24 22:30 12/04/24 22:00 12/04/24 22:00 12/04/24 21:00 12/04/24 21:00 12/04/24 20:30 30 12/04/24 20:15 12/04/24 20:00 12/04/24 20:00 12/04/24 20:00 12/04/24 19:30 30 12/04/24 19:00 30 12/04/24 18:48 12/04/24 18:45 30 12/04/24 18:35 30 12/04/24 18:30 30 12/04/24 18:15 30 12/04/24 18:00 30 12/04/24 17:45 30 12/04/24 17:30 30 12/04/24 17:15 30 12/04/24 17:00 30 12/04/24 17:00 12/04/24 16:45 30 12/04/24 16:30 30 12/04/24 16:16 30 12/04/24 16:00 12/04/24 16:00 30 12/04/24 16:00 40 12/04/24 15:45 30 12/04/24 15:30 30 12/04/24 15:15 30 12/04/24 15:00 30 12/04/24 15:00 12/04/24 14:45 30 12/04/24 14:31 30 12/04/24 14:30 30 12/04/24 14:16 40 12/04/24 14:00 40 12/04/24 13:45 40 12/04/24 13:30 40 12/04/24 13:15 40 12/04/24 13:00 40 12/04/24 13:00 12/04/24 12:45 40 12/04/24 12:30 40 12/04/24 12:18 40 12/04/24 12:15 40 12/04/24 12:00 12/04/24 12:00 40 12/04/24 12:00 50 12/04/24 11:45 40 12/04/24 11:30 40 12/04/24 11:15 40 12/04/24 11:00 40 12/04/24 11:00 12/04/24 10:45 40 12/04/24 10:40 40 12/04/24 10:30 50 12/04/24 10:15 12/04/24 10:00 50 12/04/24 09:45 50 12/04/24 09:31 50 12/04/24 09:15 50 12/04/24 09:00 50 12/04/24 09:00 12/04/24 08:57 07/20/25 08:45 50 12/04/24 08:30 50 12/04/24 08:15 50 12/04/24 08:00 12/04/24 08:00 50 Intake and Output 12/04/24 12/04/24 12/05/24 15:59 23:59 07:59 Intake Total 181.768 / 4935.421 2663.595 / 4935.421 68.792 / 68.792 Output Total 1120 / 2955 775 / 2955 675 / 675 Balance -938.232 / 5107.879 7826.595 / 1980.421 -606.208 / -606.208 Intake: Intake, Total IV Amount 181.768 / 4935.421 2663.595 / 4935.421 68.792 / 68.792 Fentanyl Citrate/Pf 1,000 mcg 4 / 38 In 0.9 % Sodium Chloride 80 ml @ 75 MCG/HR 7.5 mls/hr IV . [id number] [facility] Rx#:[id number] Fluconazole in NaCl,Iso-Osm 200 100 / 100 mg In 100 ml @ 200 mls/hr IV Q24H [facility] Rx#:[id number] Lactated Ringers 1000ML 1,000 2122 / 3615 ml @ 150 mls/hr IV .[id number] [facility] Rx#:[id number] Norepinephrine Bitartrate/D5w 8 14 / 187 mg In 250 ml @ 8 MCG/MIN 15 mls/hr IV .[id number] [facility] Rx#: [id number] Pipercillin/Tazo 3.375 gm In 0. 47 / 247 50 / 247 9 % Sodium Chloride 50 ml @ 100 mls/hr IV Q6H [facility] Rx#:[id number] Vancomycin/Water For Inj (Peg) 250 / 250 1.75 gm In 350 ml @ 175 mls/hr IV ONCE ONE Rx#:[id number] propofoL 100 ml @ 5 MCG/KG/MIN 36 / 126 2.226 mls/hr IV .Q24H [facility] Rx#: [id number] Output: Output, Urine Amount 75 / 75 200 / 200 Output, Urine Amount (Catheter) 985 / 2540 605 / 2540 325 / 325 Ramirez 985 / 2540 605 / 2540 325 / 325 Output, Gastric Drainage Amount 150 / 150 Left Nare 150 / 150 Output, Drainage Amount 60 / 190 20 / 190 150 / 150 Right Upper Abdomen 60 / 190 20 / 190 150 / 150 Other: Number of Unmeasured Voids 0 0 0 Weight 79.878 kg Patient Weight 12/05/24 23:59 Weight 79.878 kg Laboratory Results - last 24 hr 12/04/24 08:06: POC Glucose 89 12/04/24 14:21: POC Glucose 94 12/04/24 14:23: Specimen Source Left radial, O2 % 40%, ABG pH 7.50 H, ABG pCO2 28.1 L, ABG pO2 107.4 H, ABG HCO3 21.4 L, ABG Total CO2 22.2 L, ABG O2 Saturation 99, ABG Base Excess -1.8, Henry Test Acceptable, PEEP 5 12/04/24 19:34: POC Glucose 76 12/04/24 20:48: Vancomycin Trough 10.5 H 12/05/24 01:10: Vancomycin Peak 21.4 12/05/24 01:54: POC Glucose 70 12/05/24 05:31: WBC 7.7 D, RBC 2.62 L, Hct 24.9 L, MCV 95.0, MCH 30.5, MCHC 32.1, RDW 14.3, Plt Count 188, MPV 9.9, Neut % (Auto) 77.1, Lymph % (Auto) 10.8, [place] % (Auto) 5.5, Eos % (Auto) 5.9, Baso % (Auto) 0.3, Neut # (Auto) 5.9, Lymph # (Auto) 0.8, [place] # (Auto) 0.4, Eos # (Auto) 0.5 H, Baso # (Auto) 0.0, Sodium 134 L, Potassium 3.3 L, Chloride 109 H, Carbon Dioxide 22, Anion Gap 6.3, BUN 11 D, Creatinine 0.60 D, Estimated Creat Clear 67, Estimated GFR 99, Est GFR ( Amer) 120 D, Glucose 68 L D, Calcium 8.9 I & O for Labs for Last 24 Hours: Intake & Output 12/02/24 12/03/24 12/04/24 12/05/24 23:59 23:59 23:59 23:59 Intake Total 5911.252 / 3651.252 4878.709 / 4860.709 4935.421 / 4935.421 68.792 / 68.792 Output Total 650 / 1195 3740 / 3740 2955 / 2955 675 / 675 Balance 1901.252 / 2456.252 1138.709 / 6357.497 3632.421 / 1980.421 -606.208 / - 606.208 Weight 74.191 kg 74.5 kg 78.29 kg 79.878 kg Microbiology Reports for the Last 24 Hours: Microbiology 12/02/24 19:25 Buttock CRE Surveillance Culture - Final Negative 12/02/24 19:03 Nose MRSA Culture - Final Negative 12/02/24 20:17 Sputum - Endotracheal Tube Aspirate Gram Stain - Final 12/02/24 20:17 Sputum - Endotracheal Tube Aspirate Sputum Culture - Final No growth. 12/02/24 19:28 Urine,Clean Catch Urine Culture - Final NO GROWTH AFTER 48 HOURS The patient's infection will respond to the chosen ABx?: Yes (BOWEL PERFORATION, BLOOD CX PENDING, ET TUBE ASPIRATE/URINE CXS NO GROWTH) Is the patient receiving the right drug, dose, and route?: Yes Could a more targeted ABx be ordered?: No How long ABx needed (days)?: 5 (FOR ZOSYN, 7 FOR FLUCONAZOLE)
[2024-12-05] MEDS: MORPHINE 2MG/ML SYRINGE 2 MG IV ×4 (07:53→17:47)
[2024-12-05 07:58] LABS: POC Glucose,Bedside 78 (70-110)
--- NOTE | 2024-12-05 07:58 | P.PN_ITS ---
Subjective *Date: 12/05/24 *Time: 08:43 Interval history: Per nursing: Propofol and Levophed drips have been discontinued. Vital signs have remained stable. SBT initiated at 7 AM and patient thus far is doing well. She has been alert. She is complaining of some abdominal discomfort and morphine has been given Potassium low at 3.3 today. Renal function is okay. She has been seen by Dr. Contreras already this a.m. Exam Data for Last 24 hours Vital signs and Labs for Last 24 Hours: Temp Pulse Resp BP Pulse Ox O2 Del Method O2 Flow Rate 99.2 F 104 H 20 137/76 93 L Mechanical Ventilation 30 12/05/24 06:45 12/05/24 07:00 12/05/24 07:02 12/05/24 07:00 12/05/24 07:02 12/05/24 07:00 12/05/24 06:30 FiO2 30 12/05/24 07:02 Laboratory Results - last 24 hr 12/04/24 08:06: POC Glucose 89 12/04/24 14:21: POC Glucose 94 12/04/24 14:23: Specimen Source Left radial, O2 % 40%, ABG pH 7.50 H, ABG pCO2 28.1 L, ABG pO2 107.4 H, ABG HCO3 21.4 L, ABG Total CO2 22.2 L, ABG O2 Saturation 99, ABG Base Excess -1.8, Henry Test Acceptable, PEEP 5 12/04/24 19:34: POC Glucose 76 12/04/24 20:48: Vancomycin Trough 10.5 H 12/05/24 01:10: Vancomycin Peak 21.4 12/05/24 01:54: POC Glucose 70 12/05/24 05:31: WBC 7.7 D, RBC 2.62 L, Hct 24.9 L, MCV 95.0, MCH 30.5, MCHC 32.1, RDW 14.3, Plt Count 188, MPV 9.9, Neut % (Auto) 77.1, Lymph % (Auto) 10.8, [place] % (Auto) 5.5, Eos % (Auto) 5.9, Baso % (Auto) 0.3, Neut # (Auto) 5.9, Lymph # (Auto) 0.8, [place] # (Auto) 0.4, Eos # (Auto) 0.5 H, Baso # (Auto) 0.0, Sodium 134 L, Potassium 3.3 L, Chloride 109 H, Carbon Dioxide 22, Anion Gap 6.3, BUN 11 D, Creatinine 0.60 D, Estimated Creat Clear 67, Estimated GFR 99, Est GFR ( Amer) 120 D, Glucose 68 L D, Calcium 8.9 I & O for Last 24 hours: Intake & Output 12/02/24 12/03/24 12/04/24 12/05/24 11:59 11:59 11:59 11:59 Intake Total 5787.713 / 5787.713 3825.806 / 3825.806 2820.655 / 2820.655 Output Total 2450 / 2450 3475 / 3475 2095 / 2095 Balance 3337.713 / 3337.713 350.806 / 350.806 725.655 / 725.655 Weight 164 lb 3.91 oz 172 lb 9.6 oz 176 lb 1.6 oz Microbiology Reports for the Last 24 Hours: Microbiology 12/02/24 19:25 Buttock CRE Surveillance Culture - Final Negative 12/02/24 19:03 Nose MRSA Culture - Final Negative 12/02/24 20:17 Sputum - Endotracheal Tube Aspirate Gram Stain - Final 12/02/24 20:17 Sputum - Endotracheal Tube Aspirate Sputum Culture - Final No growth. 12/02/24 19:28 Urine,Clean Catch Urine Culture - Final NO GROWTH AFTER 48 HOURS Constitutional Constitutional: no acute distress Comments: Appears comfortable family at bedside. She is alert and nods head yes and no *Routine Respiratory Exam Respiratory: Present CTA bilaterally (Anteriorly with good air movement) and nor mal respiratory effort Comments: Patient currently proceeding with SBT 5?5 and 30% FiO2. .Respiratory effort 18- 20 .O2 sats 93 Seems to be tolerating well with easy respiratory effort *Routine Cardiovascular Exam Cardiovascular: Present RRR (Sinus rhythm) *Routine Abdominal Exam Abdominal: Present soft Comments: NG tube in place to low suction. Small amount of drainage noted. Abdominal dressing is clean dry and intact *Routine Extremities Exam Extremities: Present edema (Trace of bilateral foot edema), pulses intact (Good bilateral pedal pulses.) and calf tenderness Comments: Scuds in place *Routine Neurological Exam Neurological: Present alert Comments: Nods head yes and no to questions Assessment and Plan *Assessment and plan (1) Perforated bowel: Status: Acute Category: Medical Code(s): K63.1 - Perforation of intestine (nontraumatic) (2) Peptic ulcer disease: Status: Acute Category: Medical Code(s): K27.9 - Peptic ulcer, site unspecified, unspecified as acute or chronic, without hemorrhage or perforation (3) Debility: Status: Acute Category: Medical Code(s): R53.81 - Other malaise (4) Type 2 diabetes mellitus: Status: Acute Category: Medical Code(s): E11.9 - Type 2 diabetes mellitus without complications (5) Iron deficiency anemia: Status: Acute Category: Medical Code(s): D50.9 - Iron deficiency anemia, unspecified (6) Asthma: Status: Acute Category: Medical Code(s): J45.909 - Unspecified asthma, uncomplicated (7) Sepsis: Status: Acute Category: Medical Code(s): A41.9 - Sepsis, unspecified organism (8) Hypotension: Status: Acute Category: Medical Code(s): I95.9 - Hypotension, unspecified (9) Tachycardia: Status: Acute Category: Medical Code(s): R00.0 - Tachycardia, unspecified (10) Elevated lactic acid level: Status: Acute Category: Medical Code(s): R79.89 - Other specified abnormal findings of blood chemistry (11) Tachypnea: Status: Acute Category: Medical Code(s): R06.82 - Tachypnea, not elsewhere classified (12) Anemia: Status: Acute Category: Medical Code(s): D64.9 - Anemia, unspecified (13) Respirator weaning: Status: Acute Category: Medical Code(s): Z99.11 - Dependence on respirator [ventilator] status (14) Implantable intrathecal infusion pump present: Status: Acute Category: Medical Code(s): Z96.89 - Presence of other specified functional implants (15) Hypokalemia: Status: Acute Category: Medical Code(s): E87.6 - Hypokalemia Plan PO day #3; potassium low at 3 and will replace. Continue with SBT hopefully to extubate today. Pulmonology following. Family is worried about nutrition and patient and family do not want tube feedings. Continue with IV fluids at 150s heart., Piperacillin, vancomycin, and fluconazole. Also PPI. Dr. aJcob entry - Saw patient, agree with above note. H/H is trending down, change IV fluids today to add dextrose and potassium. Recheck labs tomorrow.
[2024-12-05 08:06] LABS: Hemoglobin 8.0 g/dL (12.2-16.2)
--- NOTE | 2024-12-05 08:12 | P.PNANES_ITS ---
[facility] Anesthesia Record Part II Anesthesia Record Part II Discharge Time: 18:55 Destination: Intensive Care Unit PACU nurse assessment reviewed?: Yes Patient Condition:: Critical Anesthesia Complications:: None Swallowing reflex intact?: No Airway Patency: Patent Cyanosis?: No Blood Pressure: 90/55 (20:00) SaO2: 96 (19:23) Respiratory Rate: 19 (19:23) Pulse Rate: 81 (20:00) Temperature: 99.9 F (20:00) Mental Status: Unresponsive (Intubated and Sedated) Pain level:: 0 Nausea and/or vomitting:: None Intake, IV Amount: 0 Hydration: Adequate Comments:: Pt taken to ICU intubated and sedated.
--- NOTE | 2024-12-05 08:40 | PC.NURSE ---
Primary RN notified of bedside blood glucose of 78 and morning lab potassium level of 3.3. New orders received. Continuation of care plan.
[2024-12-05] MEDS: D5W/0.45% NaCl w/40mEq KCl 1,000 ML 75 ML IV ×2 (08:47→21:50)
[2024-12-05 09:13] LABS: ABG HCO3 16.7 mmhg (22.0-26.0); ABG PCO2 22.8 mmhg (35.0-45.0); ABG PH 7.48 mmol/L (7.35-7.45); ABG PO2 73.8 mmhg (80-100)
[2024-12-05 09:15] LABS: ABG TCO2 17.4 mmhg (23-27)
[2024-12-05 09:16] LABS: Lactate Arterial 0.5 mmol/L (0.4-2.0); PEEP 5; Source Right Radial
--- NOTE | 2024-12-05 09:38 | EXP.PHA.CONS ---
Pharmacy Consult Date: 12/05/24 Time: 09:38 Referring provider: DR. LOPEZ Reason for Consult:: VANCOMYCIN LEVELS Allergies Allergy/AdvReac Type Severity Reaction Status Date / Time Sulfa (Sulfonamide Allergy Unknown NA-NAUSEA/V Verified 08/26/24 14:06 Antibiotics) (SULFA OMITING (SULFONAMIDE ANTIBIOTICS)) Home Medications ?Medication ?Instructions ?Recorded ?Confirmed ?Type duloxetine 60 mg capsule,delayed 120 mg PO DAILY 09/09/17 12/03/24 History release hydromorphone (PF) 1 mg/mL in 0.9% 0.5 mg intrathecal CONT CHRONIC 12/26/21 12/03/24 History sodium chloride intravenous syringe PAIN ropinirole 2 mg tablet 2 mg PO HSP PRN restless leg 03/20/22 12/03/24 History syndrome ascorbic acid (vitamin C) 500 mg 500 mg PO QID 04/29/22 12/03/24 History tablet (Vitamin C) ondansetron 4 mg disintegrating 4 mg PO Q8H PRN nausea and 12/13/22 12/03/24 Rx tablet vomiting 4 days #12 tabs meloxicam 15 mg tablet 15 mg PO DAILY 03/03/23 12/03/24 History tramadol 50 mg tablet 50 mg PO BID #60 tabs 09/20/24 12/03/24 Rx pregabalin 100 mg capsule (Lyrica) 100 mg PO QID Pain #120 caps 10/17/24 12/03/24 Rx ferrous sulfate 325 mg (65 mg 325 mg PO DAILY 12/03/24 12/03/24 History iron) tablet (FeroSul) furosemide 20 mg tablet 20 mg PO DAILY 12/03/24 12/03/24 History magnesium oxide 400 mg (241.3 mg 400 mg PO BID 12/03/24 12/03/24 History magnesium) tablet pregabalin 100 mg capsule 100 mg PO QIDP PRN neuropathy 12/03/24 12/03/24 History New Prescriptions to Start Prescriptions: Height: 1.57 m Weight: 79.878 kg Laboratory Results:: Laboratory Results - last 24 hr 12/04/24 14:21: POC Glucose 94 12/04/24 14:23: Specimen Source Left radial, O2 % 40%, ABG pH 7.50 H, ABG pCO2 28.1 L, ABG pO2 107.4 H, ABG HCO3 21.4 L, ABG Total CO2 22.2 L, ABG O2 Saturation 99, ABG Base Excess -1.8, Henry Test Acceptable, PEEP 5 12/04/24 19:34: POC Glucose 76 12/04/24 20:48: Vancomycin Trough 10.5 H 12/05/24 01:10: Vancomycin Peak 21.4 12/05/24 01:54: POC Glucose 70 12/05/24 05:31: WBC 7.7 D, RBC 2.62 L, Hgb 8.0 L D, Hct 24.9 L, MCV 95.0, MCH 30.5, MCHC 32.1, RDW 14.3, Plt Count 188, MPV 9.9, Neut % (Auto) 77.1, Lymph % (Auto) 10.8, [place] % (Auto) 5.5, Eos % (Auto) 5.9, Baso % (Auto) 0.3, Neut # (Auto) 5.9, Lymph # (Auto) 0.8, [place] # (Auto) 0.4, Eos # (Auto) 0.5 H, Baso # (Auto) 0.0, Sodium 134 L, Potassium 3.3 L, Chloride 109 H, Carbon Dioxide 22, Anion Gap 6.3, BUN 11 D, Creatinine 0.60 D, Estimated Creat Clear 67, Estimated GFR 99, Est GFR ( Amer) 120 D, Glucose 68 L D, Calcium 8.9 12/05/24 07:52: POC Glucose 78 12/05/24 09:08: Specimen Source Right radial, O2 % 30, ABG pH 7.48 H, ABG pCO2 22.8 L, ABG pO2 73.8 L, ABG HCO3 16.7 L, ABG Total CO2 17.4 L, ABG O2 Saturation 94, ABG Base Excess -6.7 L, Henry Test Acceptable, ABG Lactate 0.5, PEEP 5 Medical History: Medical History (Updated 12/05/24 @ 08:50 by George Jacob MD) Implantable intrathecal infusion pump present Anemia Asthma Type 2 diabetes mellitus History of renal dialysis Peptic ulcer disease Arthritis Fibromyalgia History of TB (tuberculosis) Chronic pain Depression Iron deficiency anemia Cervical (neck) region somatic dysfunction Degenerated intervertebral disc Assessment and Plan Assessment and plan all Dx Assessment and Plan for all problems:: PATIENT'S VANCOMYCIN PEAK AND TROUGH OVERNIGHT WAS 21.4 MCG/ML AND 10.5 MCG/ML, RESPECTIVELY. RECOMMEND CONTINUING WITH VANCOMYCIN 1250 MG Q24H AT THIS TIME.
--- NOTE | 2024-12-05 09:46 | EXP.PULM.CON ---
History of Present Illness History of present illness: Ms. Vega is a 69-year-old female presented the ER with acute abdominal pain status post exploratory laparotomy found to have large anterior perforation near pylorus status post repair remain intubated postsurgery for airway support. [facility] Disclaimer: The information contained in this section may have been updated after the patient was seen, as this information can be updated by other users. Medical History (Updated 12/05/24 @ 12:22 by Mary Beth Banks MD) On mechanically assisted ventilation Implantable intrathecal infusion pump present Anemia Asthma Type 2 diabetes mellitus History of renal dialysis Peptic ulcer disease Arthritis Fibromyalgia History of TB (tuberculosis) Chronic pain Depression Iron deficiency anemia Cervical (neck) region somatic dysfunction Degenerated intervertebral disc Surgical History History of colonoscopy History of esophagogastroduodenoscopy (EGD) History of cervical spinal surgery Family History Other Cancer Coronary artery disease Diabetes Hypertension Social History Smoking Status: Never smoker second hand exposure: No alcohol intake: never substance use type: denies use current occupational status: other Travel in the last 8 weeks?: None household members: none housing: house current occupational exposures/hazards: No caffeine: Yes Have you lived/traveled outside [place] in past 30 days?: No Contact w/someone who lives/traveled outside US past 30 days?: No Exposure to someone with infectious disease in past 14 days?: No Do you have a fever (greater than 100.4 F or 38 C)?: No Have you tested positive for COVID-19?: No Exposed to someone with COVID-19 in past 14 days?: No Do you have a sore throat?: No Do you have a cough?: No Do you have any weakness?: No Do you have any diarrhea?: No Are you experiencing any unusual bleeding?: No Do you have any muscle aches/pain?: No Do you have any abdominal pain?: Yes Are you experiencing loss of taste or smell?: No Review of Systems Review of Systems Review of systems:: unable to obtain Review of systems (narrative): Intubated Pulmonology Exam Inpatient Vital signs and Labs for Last 24 Hours: Temp Pulse Resp BP Pulse Ox O2 Del Method O2 Flow Rate 99.2 F 97 H 19 135/71 91 L Mechanical Ventilation 30 12/05/24 06:45 12/05/24 08:15 12/05/24 08:29 12/05/24 08:15 12/05/24 08:15 12/05/24 08:00 12/05/24 06:30 FiO2 0.31 12/05/24 08:00 Laboratory Results - last 24 hr 12/04/24 14:21: POC Glucose 94 12/04/24 14:23: Specimen Source Left radial, O2 % 40%, ABG pH 7.50 H, ABG pCO2 28.1 L, ABG pO2 107.4 H, ABG HCO3 21.4 L, ABG Total CO2 22.2 L, ABG O2 Saturation 99, ABG Base Excess -1.8, Henry Test Acceptable, PEEP 5 12/04/24 19:34: POC Glucose 76 12/04/24 20:48: Vancomycin Trough 10.5 H 12/05/24 01:10: Vancomycin Peak 21.4 12/05/24 01:54: POC Glucose 70 12/05/24 05:31: WBC 7.7 D, RBC 2.62 L, Hgb 8.0 L D, Hct 24.9 L, MCV 95.0, MCH 30.5, MCHC 32.1, RDW 14.3, Plt Count 188, MPV 9.9, Neut % (Auto) 77.1, Lymph % (Auto) 10.8, Gregg % (Auto) 5.5, Eos % (Auto) 5.9, Baso % (Auto) 0.3, Neut # (Auto) 5.9, Lymph # (Auto) 0.8, Gregg # (Auto) 0.4, Eos # (Auto) 0.5 H, Baso # (Auto) 0.0, Sodium 134 L, Potassium 3.3 L, Chloride 109 H, Carbon Dioxide 22, Anion Gap 6.3, BUN 11 D, Creatinine 0.60 D, Estimated Creat Clear 67, Estimated GFR 99, Est GFR ( Amer) 120 D, Glucose 68 L D, Calcium 8.9 12/05/24 07:52: POC Glucose 78 12/05/24 09:08: Specimen Source Right radial, O2 % 30, ABG pH 7.48 H, ABG pCO2 22.8 L, ABG pO2 73.8 L, ABG HCO3 16.7 L, ABG Total CO2 17.4 L, ABG O2 Saturation 94, ABG Base Excess -6.7 L, Henry Test Acceptable, ABG Lactate 0.5, PEEP 5 I & O for Labs for Last 24 Hours: Intake & Output 12/02/24 12/03/24 12/04/24 12/05/24 23:59 23:59 23:59 23:59 Intake Total 2551.252 / 3651.252 4878.709 / 4878.709 4935.421 / 4935.421 68.792 / 68.792 Output Total 650 / 1195 3740 / 3740 2955 / 2955 675 / 675 Balance 1901.252 / 2456.252 1138.709 / 6245.027 9640.421 / 1980.421 -606.208 / -606.208 Weight 163 lb 9 oz 164 lb 3.91 oz 172 lb 9.6 oz 176 lb 1.6 oz Microbiology Reports for the Last 24 Hours: Microbiology 12/04/24 09:10 Blood Blood Culture - Preliminary NO GROWTH AFTER 24 HOURS 12/04/24 08:55 Blood Blood Culture - Preliminary NO GROWTH AFTER 24 HOURS 12/02/24 19:25 Buttock CRE Surveillance Culture - Final Negative 12/02/24 19:03 Nose MRSA Culture - Final Negative 12/02/24 20:17 Sputum - Endotracheal Tube Aspirate Gram Stain - Final 12/02/24 20:17 Sputum - Endotracheal Tube Aspirate Sputum Culture - Final No growth. 12/02/24 19:28 Urine,Clean Catch Urine Culture - Final NO GROWTH AFTER 48 HOURS Constitutional: Present moderate distress Comment:: Intubated and Sedated Head: Present normocephalic and atraumatic Neck: Present normal inspection and trachea midline Respiratory: Present patient mechanically ventilated; Absent prolonged expiratory phase, rhonchi, wheezes or diminished air movement Cardiac: Present S1/S2 and Tachycardia GI: Present soft; Absent distention or tenderness Skin: Present intact; Absent cyanosis Neuro: Present alert and awake; Absent oriented x 3 Comment:: Intubated Extremities: Present normal inspection; Absent clubbing or cyanosis Psychiatric: Present unable to assess Meds Home Medications and Allergies Home Medications ?Medication ?Instructions ?Recorded ?Confirmed ?Type duloxetine 60 mg capsule,delayed 120 mg PO DAILY 09/09/17 12/03/24 History release hydromorphone (PF) 1 mg/mL in 0.9% 0.5 mg intrathecal CONT CHRONIC 12/26/21 12/03/24 History sodium chloride intravenous syringe PAIN ropinirole 2 mg tablet 2 mg PO HSP PRN restless leg 03/20/22 12/03/24 History syndrome ascorbic acid (vitamin C) 500 mg 500 mg PO QID 04/29/22 12/03/24 History tablet (Vitamin C) ondansetron 4 mg disintegrating 4 mg PO Q8H PRN nausea and 12/13/22 12/03/24 Rx tablet vomiting 4 days #12 tabs meloxicam 15 mg tablet 15 mg PO DAILY 03/03/23 12/03/24 History tramadol 50 mg tablet 50 mg PO BID #60 tabs 09/20/24 12/03/24 Rx pregabalin 100 mg capsule (Lyrica) 100 mg PO QID Pain #120 caps 10/17/24 12/03/24 Rx ferrous sulfate 325 mg (65 mg 325 mg PO DAILY 12/03/24 12/03/24 History iron) tablet (FeroSul) furosemide 20 mg tablet 20 mg PO DAILY 12/03/24 12/03/24 History magnesium oxide 400 mg (241.3 mg 400 mg PO BID 12/03/24 12/03/24 History magnesium) tablet pregabalin 100 mg capsule 100 mg PO QIDP PRN neuropathy 12/03/24 12/03/24 History New Prescriptions to Start Prescriptions: Allergies Allergy/AdvReac Type Severity Reaction Status Date / Time Sulfa (Sulfonamide Allergy Unknown NA-NAUSEA/V Verified 08/26/24 14:06 Antibiotics) (SULFA OMITING (SULFONAMIDE ANTIBIOTICS)) Results Laboratory Findings 12/05/24 05:31 12/05/24 05:31 ABG ABG pH 7.48 mmol/L (7.35-7.45) H 12/05/24 09:08 ABG pCO2 22.8 mmhg (35.0-45.0) L 12/05/24 09:08 ABG pO2 73.8 mmhg (80-100) L 12/05/24 09:08 ABG O2 Saturation 94 % (90-100) 12/05/24 09:08 Abnormal lab findings: Abnormal Labs 12/02/24 12/02/24 12/02/24 13:11 15:30 19:58 WBC 4.7 L RBC Hgb Hct MCH MCHC 30.7 L Plt Count Neut % (Auto) Lymph % (Auto) Eos % (Auto) Baso % (Auto) 0.0 L Neut # (Auto) Lymph # (Auto) 0.6 L Eos # (Auto) Neutrophils % (Manual) ABG pH ABG pCO2 ABG pO2 65.9 L ABG HCO3 21.9 L ABG Total CO2 ABG Base Excess -2.9 L VBG pH 7.22 L VBG HCO3 18.6 L VBG Total CO2 20.0 L VBG Base Excess -9.2 L VBG Lactic Acid 2.3 H Sodium Potassium Chloride BUN 19 H Glucose 124 H POC Glucose Lactate Calcium 11.3 H Magnesium AST C-Reactive Protein 19.1 H Total Protein Albumin Globulin 3.7 H Albumin/Globulin Ratio Lipase 858 H Urine Protein 1+ A Urine Blood 1+ A Vancomycin Trough 12/02/24 12/03/24 12/03/24 22:19 02:01 02:38 WBC 2.5 L D RBC 2.59 L D 3.34 L D Hgb 8.0 L D 10.5 L D Hct 25.2 L 31.5 L MCH 31.7 H 31.4 H MCHC Plt Count 129 L D Neut % (Auto) 81.1 H Lymph % (Auto) Eos % (Auto) 0.0 L Baso % (Auto) 0.0 L Neut # (Auto) Lymph # (Auto) 0.4 L Eos # (Auto) Neutrophils % (Manual) 79 H ABG pH ABG pCO2 ABG pO2 ABG HCO3 ABG Total CO2 ABG Base Excess VBG pH VBG HCO3 VBG Total CO2 VBG Base Excess VBG Lactic Acid Sodium Potassium Chloride BUN Glucose POC Glucose 119 H Lactate 8.3 H Calcium Magnesium AST C-Reactive Protein Total Protein Albumin Globulin Albumin/Globulin Ratio Lipase Urine Protein Urine Blood Vancomycin Trough 12/03/24 12/03/24 12/03/24 06:43 06:56 08:42 WBC RBC 3.81 L Hgb 11.5 L Hct 35.7 L MCH MCHC Plt Count Neut % (Auto) 83.9 H Lymph % (Auto) Eos % (Auto) Baso % (Auto) Neut # (Auto) 8.9 H Lymph # (Auto) Eos # (Auto) Neutrophils % (Manual) ABG pH ABG pCO2 ABG pO2 74.2 L ABG HCO3 21.5 L ABG Total CO2 22.7 L ABG Base Excess -3.9 L VBG pH VBG HCO3 VBG Total CO2 VBG Base Excess VBG Lactic Acid Sodium Potassium Chloride 109 H BUN Glucose 110 H POC Glucose 138 H Lactate Calcium 10.5 H Magnesium 1.5 L D AST 38 H D C-Reactive Protein Total Protein 5.3 L D Albumin 2.8 L D Globulin Albumin/Globulin Ratio Lipase Urine Protein Urine Blood Vancomycin Trough 12/03/24 12/03/24 12/04/24 13:18 14:11 06:40 WBC RBC 3.24 L Hgb 9.9 L D Hct 30.4 L MCH MCHC Plt Count Neut % (Auto) 80.2 H Lymph % (Auto) 7.8 L Eos % (Auto) Baso % (Auto) Neut # (Auto) 8.2 H Lymph # (Auto) Eos # (Auto) 0.7 H Neutrophils % (Manual) ABG pH ABG pCO2 ABG pO2 76.5 L ABG HCO3 21.6 L ABG Total CO2 22.7 L ABG Base Excess -3.7 L VBG pH VBG HCO3 VBG Total CO2 VBG Base Excess VBG Lactic Acid Sodium 135 L Potassium Chloride 110 H BUN Glucose POC Glucose 113 H Lactate Calcium Magnesium AST C-Reactive Protein Total Protein 4.9 L Albumin 2.4 L D Globulin Albumin/Globulin Ratio 1.0 L Lipase Urine Protein Urine Blood Vancomycin Trough 12/04/24 12/04/24 12/05/24 14:23 20:48 05:31 WBC RBC 2.62 L Hgb 8.0 L D Hct 24.9 L MCH MCHC Plt Count Neut % (Auto) Lymph % (Auto) Eos % (Auto) Baso % (Auto) Neut # (Auto) Lymph # (Auto) Eos # (Auto) 0.5 H Neutrophils % (Manual) ABG pH 7.50 H ABG pCO2 28.1 L ABG pO2 107.4 H ABG HCO3 21.4 L ABG Total CO2 22.2 L ABG Base Excess VBG pH VBG HCO3 VBG Total CO2 VBG Base Excess VBG Lactic Acid Sodium 134 L Potassium 3.3 L Chloride 109 H BUN Glucose 68 L D POC Glucose Lactate Calcium Magnesium AST C-Reactive Protein Total Protein Albumin Globulin Albumin/Globulin Ratio Lipase Urine Protein Urine Blood Vancomycin Trough 10.5 H 12/05/24 09:08 WBC RBC Hgb Hct MCH MCHC Plt Count Neut % (Auto) Lymph % (Auto) Eos % (Auto) Baso % (Auto) Neut # (Auto) Lymph # (Auto) Eos # (Auto) Neutrophils % (Manual) ABG pH 7.48 H ABG pCO2 22.8 L ABG pO2 73.8 L ABG HCO3 16.7 L ABG Total CO2 17.4 L ABG Base Excess -6.7 L VBG pH VBG HCO3 VBG Total CO2 VBG Base Excess VBG Lactic Acid Sodium Potassium Chloride BUN Glucose POC Glucose Lactate Calcium Magnesium AST C-Reactive Protein Total Protein Albumin Globulin Albumin/Globulin Ratio Lipase Urine Protein Urine Blood Vancomycin Trough Assessment and Plan *Assessment and plan (1) On mechanically assisted ventilation: Status: Acute Category: Medical Code(s): Z99.11 - Dependence on respirator [ventilator] status Plan Ms. Vega is a 69-year-old female presented the ER with acute abdominal pain status post exploratory laparotomy found to have large anterior perforation near pylorus status post repair remain intubated postsurgery for airway support. Surgery has been following. Receiving vancomycin Zosyn and fluconazole since admission. No significant evidence of leukocytosis. Afebrile. Hemodynamically unstable needing pressors. Blood cultures no growth so far. Tracheal aspirate no growth. Chest x-ray from intubation and subsequent chest x-rays no acute pulmonary infiltrates. Examination tolerating SBT well. Alert, awake. Following commands. ABG Post SBT 7.48, 22.8 and a PO2 of 73 and 8 on 50% FiO2 and PS of 5 Plan: Extubate to nasal cannula No need for antibiotics from pulmonary standpoint. DuoNebs every 6 hours on a scheduled basis. Continue oxygen supplementation on as-needed basis to maintain O2 saturation below 90% and above # Thank you for involving pulmonary in this patient care. Will continue to follow-up
--- NOTE | 2024-12-05 10:01 | HMH.PTWOUND ---
Rehab Inpt Wound Evaluation Rehab IP Wound Evaluation Start: 12/02/24 21:53 Freq: ONCE Status: Active Protocol: Document 12/05/24 09:48 OMER (Rec: 12/05/24 10:01 PHOLULU [id number]) Rehab PT Wound Assessment Subjective Subjective 69 yof adm to hospital with bowel perforation and now 3 days S/P ex-lap for repair. Pt remains intubated at this time. PT inpatient wound consult received due to concern for pressure injury to sacrum. Per nsg pt has redness to the area with possible stage II pressure injury less than 1.0 cm x 1.0 cm in surface area. Nsg staff reports they are appropriate covering the wound with proper dressing and there is no need for excisional debridement at this time. Nsg staff continues to perform proper pressure relief to the area per protocols. Plan/Recommendation Comment No current need for inpatient PT wound care as nsg staff is appropriately treating this wound and providing adequate pressure relief per protocols. Thank you for involving the wound care team in the care of this patient. PHYSICIAN CERTIFICATION: I certify the specified therapy services for [facility] are required, authorized, and reviewed every 30 days.
--- NOTE | 2024-12-05 10:30 | PC.NURSE ---
states call respiratory to extubate the patient. Primary RN notified respiratory. Continuation of care plan.
--- NOTE | 2024-12-05 10:45 | PC.NURSE ---
Primary RN and Respiratory at bedside. Patient verified. Respiratory therapy extubate patient at this time. Continuation of care plan.
--- NOTE | 2024-12-05 10:48 | PC.NURSE ---
Pt extubated at this time and placed on 2L NC
--- NOTE | 2024-12-05 11:07 | PC.NURSE ---
Primary RN notified that patient is now extubated and on 2 L NC. Primary RN notified that pt has had 90 cc of Serosanguineous drainage out of PABLITO. Continuation of care plan.
[2024-12-05 11:13] LABS: POC Glucose,Bedside 89 (70-110)
[2024-12-05] MEDS: IPRATROPIUM/ALBUTEROL 3 ML NEB IH ×3 (12:41→23:17)
[2024-12-05] MEDS: ACETAMINOPHEN 650MG SUPPOSITORY 650 MG RC (14:06)
--- NOTE | 2024-12-05 15:40 | PC.NURSE ---
Primary RN notified of patients temperature of 100.2*F Rectal. No new orders received. Continuation of care plan.
[2024-12-05 17:56] LABS: POC Glucose,Bedside 93 (70-110)
--- NOTE | 2024-12-05 18:00 | PC.NURSE ---
Patient complains of pain at pain pump site. at bedside. Primary RN notified . No new orders recieved. Continuation of care plan.
[2024-12-05] MEDS: FLUCONAZOLE IN NACL,ISO-OSM 200 MG/100 ML PIGGYBACK IV (18:16)
[2024-12-05] MEDS: PANTOPRAZOLE 40MG VIAL 40 MG IV (21:10)
[2024-12-05] MEDS: SODIUM CHLORIDE 0.9% 10ML VIAL 10 ML IV (21:11)
[2024-12-05] MEDS: ACETAMINOPHEN 1,000MG/100ML VIAL 1000 MG IV (23:59)
[2024-12-06] VITALS (77 sets, daily range): BP systolic 102–142; BP diastolic 47–79; PULSE 62–95; RESP 19–35; TEMP 37.2–38.1; O2SAT 88–100; BMI 34.2
[2024-12-06] MEDS: PIPERCILLIN/TAZO 3.375 GM in 0.9 % SODIUM CHLORIDE 50 ML IV ×4 (01:22→18:11)
[2024-12-06] MEDS: MORPHINE 2MG/ML SYRINGE 2 MG IV ×5 (01:35→19:38)
[2024-12-06] MEDS: IPRATROPIUM/ALBUTEROL 3 ML NEB IH ×3 (05:31→19:07)
[2024-12-06 07:53] LABS: Hematocrit 24.8 % (37.0-47.0); Hemoglobin 8.4 g/dL (12.2-16.2); Immature Granulocytes % 0.9 %; Mean Corpuscular HGB Conc 33.9 g/dL (31.8-35.4); Mean Corpuscular Hemoglobin 31.2 pg (27.0-31.2); Mean Corpuscular Volume 92.2 fl (81-99); Nucleated Red Blood Cells % 0 %; Platelet Count 157 K/mm3 (142-424); Red Blood Count 2.69 M/mm3 (4.20-5.40); Red Cell Distribution Width-SD 46.5 fL; White Blood Count 7.0 K/mm3 (4.8-10.8)
--- NOTE | 2024-12-06 08:00 | EXP.SURG.PN ---
Subjective Narrative: Patient extubated yesterday. Tolerating well. On 3 L. Off drips. Exam Data for Last 24 hours Vital signs and Labs for Last 24 Hours: Temp Pulse Resp BP Pulse Ox O2 Del Method O2 Flow Rate 99.5 F 83 27 H 126/67 92 L Nasal Cannula 3 12/05/24 20:00 12/06/24 07:00 12/06/24 07:00 12/06/24 07:00 12/06/24 07:35 12/06/24 07:35 12/06/24 07:35 FiO2 0.31 12/05/24 10:30 Laboratory Results - last 24 hr 12/05/24 05:31: Hgb 8.0 L D 12/05/24 09:08: Specimen Source Right radial, O2 % 30, ABG pH 7.48 H, ABG pCO2 22.8 L, ABG pO2 73.8 L, ABG HCO3 16.7 L, ABG Total CO2 17.4 L, ABG O2 Saturation 94, ABG Base Excess -6.7 L, Henry Test Acceptable, ABG Lactate 0.5, PEEP 5 12/05/24 11:06: POC Glucose 89 12/05/24 17:49: POC Glucose 93 I & O for Last 24 hours: Intake & Output 12/03/24 12/04/24 12/05/24 12/06/24 11:59 11:59 11:59 11:59 Intake Total 5787.713 / 5787.713 3825.806 / 3825.806 2820.655 / 2820.655 810 / 810 Output Total 2450 / 2485 3475 / 3475 2685 / 2685 850 / 850 Balance 3337.713 / 3302.713 350.806 / 350.806 135.655 / 135.655 -40 / -40 Weight 164 lb 3.91 oz 172 lb 9.6 oz 176 lb 1.6 oz 185 lb 14.4 oz Microbiology Reports for the Last 24 Hours: Microbiology 12/04/24 09:10 Blood Blood Culture - Preliminary NO GROWTH AFTER 24 HOURS 12/04/24 08:55 Blood Blood Culture - Preliminary NO GROWTH AFTER 24 HOURS Constitutional Comments: More alert *Routine Abdominal Exam Abdominal: Present soft Comments: PABLITO with serous drainage Progress Note: A&P Assessment and plan (1) On mechanically assisted ventilation: Status: Acute Assessment and Plan Assessment and Plan for All Diagnoses:: Plan for upper GI Gastroview per NG tube today. If no evidence of obstruction or leak may be able to remove nasogastric tube and start liquids if patient can tolerate.
[2024-12-06 08:01] LABS: Albumin Level 2.4 g/dl (3.5-5.0); Chloride 105 mmol/L (98-107); Potassium 3.1 mmoL/L (3.5-5.1); Sodium 134 mmol/L (136-145)
[2024-12-06 08:04] LABS: Alanine Aminotransferase 15 U/L (12-78); Albumin/Globulin Ratio 0.8 (1.1-1.8); Alkaline Phosphatase 67 U/L (38-126); Anion Gap 6.1 mEq/L (5-15); Aspartate Amino Transferase 35 U/L (14-36); Bilirubin,Total 0.6 mg/dl (0.2-1.3); Blood Urea Nitrogen 4 mg/dl (7-17); Calcium 8.8 mg/dl (8.4-10.2); Carbon Dioxide 26 mmol/L (22.0-30.0); Creatinine Clearance Estimated 72 mL/min (50-200); Creatinine,Serum 0.50 mg/dl (0.52-1.04); Estimated Glomerular Filt Rate 123 ml/min (>60); GFR (African American) 148 ML/MIN (>60); Globulin 2.9 g/dL (1.3-3.2); Glucose 117 mg/dl (74-100); Total Protein,Serum 5.3 g/dl (6.3-8.2)
--- NOTE | 2024-12-06 08:09 | HMH.ITSTN ---
juan pablo fish notified there is no PA today for fluoro studies. she will relay to dr maria
--- NOTE | 2024-12-06 08:13 | EXP.PN ---
Subjective *Date: 12/06/24 *Time: 08:46 Interval history: Patient has been seen by Dr. Contreras this morning with the following plan: Progress Note: A&P Assessment and plan (1) On mechanically assisted ventilation: Status: Acute Assessment and Plan Assessment and Plan for All Diagnoses:: Plan for upper GI Gastroview per NG tube today. If no evidence of obstruction or leak may be able to remove nasogastric tube and start liquids if patient can tolerate. Patient was extubated yesterday and been placed on O2 at 2 to 3 L/min. Per nasal cannula. Patient denies abdominal pain this a.m. She feels short of breath. She denies any chest pain. She does have some calf tenderness. She complains of back pain with movement. Labs are being drawn at present time. She has had an adequate urinary output. She continues with NG tube to low wall suction. Nurses report adequate O2 sats. O2 sats this morning 93% with a respiratory rate of 23. Exam Data for Last 24 hours Vital signs and Labs for Last 24 Hours: Temp Pulse Resp BP Pulse Ox O2 Del Method O2 Flow Rate 99.5 F 74 23 117/56 L 93 L Nasal Cannula 3 12/05/24 20:00 12/06/24 08:00 12/06/24 08:00 12/06/24 08:00 12/06/24 08:00 12/06/24 08:00 12/06/24 08:00 FiO2 0.31 12/05/24 10:30 Laboratory Results - last 24 hr 12/05/24 09:08: Specimen Source Right radial, O2 % 30, ABG pH 7.48 H, ABG pCO2 22.8 L, ABG pO2 73.8 L, ABG HCO3 16.7 L, ABG Total CO2 17.4 L, ABG O2 Saturation 94, ABG Base Excess -6.7 L, Henry Test Acceptable, ABG Lactate 0.5, PEEP 5 12/05/24 11:06: POC Glucose 89 12/05/24 17:49: POC Glucose 93 12/06/24 07:42: Sodium 134 L, Potassium 3.1 L, Chloride 105, Carbon Dioxide 26, Anion Gap 6.1, BUN 4 L D, Creatinine 0.50 L, Estimated Creat Clear 72, Estimated GFR 123, Est GFR ( Amer) 148 D, Glucose 117 H, Calcium 8.8, Total Bilirubin 0.6, AST 35, ALT 15, Alkaline Phosphatase 67, Total Protein 5.3 L, Albumin 2.4 L, Globulin 2.9, Albumin/Globulin Ratio 0.8 L I & O for Last 24 hours: Intake & Output 12/03/24 12/04/24 12/05/24 12/06/24 11:59 11:59 11:59 11:59 Intake Total 5787.713 / 5787.713 3825.806 / 3825.806 2820.655 / 2820.655 810 / 810 Output Total 2450 / 2450 3475 / 3475 2685 / 2685 850 / 850 Balance 3337.713 / 3337.713 350.806 / 350.806 135.655 / 135.655 -40 / -40 Weight 164 lb 3.91 oz 172 lb 9.6 oz 176 lb 1.6 oz 185 lb 14.4 oz Microbiology Reports for the Last 24 Hours: Microbiology 12/04/24 09:10 Blood Blood Culture - Preliminary NO GROWTH AFTER 24 HOURS 12/04/24 08:55 Blood Blood Culture - Preliminary NO GROWTH AFTER 24 HOURS Constitutional Constitutional: no acute distress *Routine Respiratory Exam Respiratory: Present decreased breath sounds (Right base) and crackles (Left base) *Routine Cardiovascular Exam Cardiovascular: Present RRR (Monitor showing sinus rhythm) *Routine Abdominal Exam Abdominal: Present soft, normoactive bowel sounds and tenderness (Postoperative) Comments: Questionable *Routine Extremities Exam Extremities: Present pulses intact (Good bilateral pedal pulses) and calf tenderness (Bilateral. Has cuts on.); Absent edema *Routine Neurological Exam Neurological: Present alert and oriented X3 Comments: Answers all questions appropriately. Assessment and Plan *Assessment and plan (1) Perforated bowel: Status: Acute Category: Medical Code(s): K63.1 - Perforation of intestine (nontraumatic) (2) Peptic ulcer disease: Status: Acute Category: Medical Code(s): K27.9 - Peptic ulcer, site unspecified, unspecified as acute or chronic, without hemorrhage or perforation (3) Debility: Status: Acute Category: Medical Code(s): R53.81 - Other malaise (4) Type 2 diabetes mellitus: Status: Acute Category: Medical Code(s): E11.9 - Type 2 diabetes mellitus without complications (5) Iron deficiency anemia: Status: Acute Category: Medical Code(s): D50.9 - Iron deficiency anemia, unspecified (6) Asthma: Status: Acute Category: Medical Code(s): J45.909 - Unspecified asthma, uncomplicated (7) Sepsis: Status: Acute Category: Medical Code(s): A41.9 - Sepsis, unspecified organism (8) Hypotension: Status: Acute Category: Medical Code(s): I95.9 - Hypotension, unspecified (9) Tachycardia: Status: Acute Category: Medical Code(s): R00.0 - Tachycardia, unspecified (10) Elevated lactic acid level: Status: Acute Category: Medical Code(s): R79.89 - Other specified abnormal findings of blood chemistry (11) Tachypnea: Status: Acute Category: Medical Code(s): R06.82 - Tachypnea, not elsewhere classified (12) Anemia: Status: Acute Category: Medical Code(s): D64.9 - Anemia, unspecified (13) Respirator weaning: Status: Acute Category: Medical Code(s): Z99.11 - Dependence on respirator [ventilator] status (14) Implantable intrathecal infusion pump present: Status: Acute Category: Medical Code(s): Z96.89 - Presence of other specified functional implants (15) Hypokalemia: Status: Acute Category: Medical Code(s): E87.6 - Hypokalemia Plan Postoperative day #4. Laboratory data pending. IV rate has been decreased to 75 an hour. May need some diuretics. Continue with antibiotics and PPI. Postoperative care as per Dr. Contreras will have Gastrografin test this morning. May be able to have NG tube out. Encourage patient for deep breathing as well. Continue with DuoNebs every 6 hours and O2 supplementation as needed. Pulmonology to follow also Dr. Jacob entry - Saw patient, She has some crackles on her lung exam, will replace potassium and give her one dose of Lasix.
--- NOTE | 2024-12-06 08:15 | PC.NURSE ---
Nicholas notified Primary RN that Gastrografin study will have to be done tomorrow. Nicholas states there is no PA today. Primary RN notified 's office at this time. Continuation of care plan.
--- NOTE | 2024-12-06 08:50 | PC.NURSE ---
Patient lethargic at this time. at bedside and aware. Continuation of care plan.
[2024-12-06] MEDS: LIDOCAINE HCL IV ×3 (09:21→13:55)
[2024-12-06] MEDS: SODIUM CHLORIDE 0.9% IV ×3 (09:21→13:55)
[2024-12-06] MEDS: POTASSIUM CHLORIDE IV ×3 (09:21→13:55)
--- NOTE | 2024-12-06 09:28 | EXP.PULM.PN ---
Subjective *Date: 12/06/24 *Time: 12:58 Interval history: No acute respiratory vents overnight Pulmonology Exam Inpatient Vital signs and Labs for Last 24 Hours: Temp Pulse Resp BP Pulse Ox O2 Del Method O2 Flow Rate 99.5 F 75 23 117/56 L 94 L Nasal Cannula 3 12/05/24 20:00 12/06/24 08:10 12/06/24 08:00 12/06/24 08:00 12/06/24 08:00 12/06/24 08:00 12/06/24 08:00 FiO2 0.31 12/05/24 10:30 Laboratory Results - last 24 hr 12/05/24 11:06: POC Glucose 89 12/05/24 17:49: POC Glucose 93 12/06/24 07:42: WBC 7.0, RBC 2.69 L, Hgb 8.4 L, Hct 24.8 L, MCV 92.2, MCH 31.2, MCHC 33.9, RDW 13.6, Plt Count 157, MPV 9.2, Neut % (Auto) 79.4, Lymph % (Auto) 8.9 L, [place] % (Auto) 8.1, Eos % (Auto) 2.4, Baso % (Auto) 0.3, Neut # (Auto) 5.5, Lymph # (Auto) 0.6 L, [place] # (Auto) 0.6, Eos # (Auto) 0.2, Baso # (Auto) 0.0, Sodium 134 L, Potassium 3.1 L, Chloride 105, Carbon Dioxide 26, Anion Gap 6.1, BUN 4 L D, Creatinine 0.50 L, Estimated Creat Clear 72, Estimated GFR 123, Est GFR ( Amer) 148 D, Glucose 117 H, Calcium 8.8, Total Bilirubin 0.6, AST 35, ALT 15, Alkaline Phosphatase 67, Total Protein 5.3 L, Albumin 2.4 L, Globulin 2.9, Albumin/Globulin Ratio 0.8 L Temp Pulse Resp BP Pulse Ox O2 Del Method O2 Flow Rate 99.2 F 97 H 19 135/71 91 L Mechanical Ventilation 30 12/05/24 06:45 12/05/24 08:15 12/05/24 08:29 12/05/24 08:15 12/05/24 08:15 12/05/24 08:00 12/05/24 06:30 FiO2 0.31 12/05/24 08:00 Laboratory Results - last 24 hr 12/04/24 14:21: POC Glucose 94 12/04/24 14:23: Specimen Source Left radial, O2 % 40%, ABG pH 7.50 H, ABG pCO2 28.1 L, ABG pO2 107.4 H, ABG HCO3 21.4 L, ABG Total CO2 22.2 L, ABG O2 Saturation 99, ABG Base Excess -1.8, Henry Test Acceptable, PEEP 5 12/04/24 19:34: POC Glucose 76 12/04/24 20:48: Vancomycin Trough 10.5 H 12/05/24 01:10: Vancomycin Peak 21.4 12/05/24 01:54: POC Glucose 70 12/05/24 05:31: WBC 7.7 D, RBC 2.62 L, Hgb 8.0 L D, Hct 24.9 L, MCV 95.0, MCH 30.5, MCHC 32.1, RDW 14.3, Plt Count 188, MPV 9.9, Neut % (Auto) 77.1, Lymph % (Auto) 10.8, [place] % (Auto) 5.5, Eos % (Auto) 5.9, Baso % (Auto) 0.3, Neut # (Auto) 5.9, Lymph # (Auto) 0.8, [place] # (Auto) 0.4, Eos # (Auto) 0.5 H, Baso # (Auto) 0.0, Sodium 134 L, Potassium 3.3 L, Chloride 109 H, Carbon Dioxide 22, Anion Gap 6.3, BUN 11 D, Creatinine 0.60 D, Estimated Creat Clear 67, Estimated GFR 99, Est GFR ( Amer) 120 D, Glucose 68 L D, Calcium 8.9 12/05/24 07:52: POC Glucose 78 12/05/24 09:08: Specimen Source Right radial, O2 % 30, ABG pH 7.48 H, ABG pCO2 22.8 L, ABG pO2 73.8 L, ABG HCO3 16.7 L, ABG Total CO2 17.4 L, ABG O2 Saturation 94, ABG Base Excess -6.7 L, Henry Test Acceptable, ABG Lactate 0.5, PEEP 5 I & O for Labs for Last 24 Hours: Intake & Output 12/03/24 12/04/24 12/05/24 12/06/24 23:59 23:59 23:59 23:59 Intake Total 4878.709 / 4878.709 4935.421 / 4935.421 828.792 / 878.792 50 / 50 Output Total 3740 / 3740 2955 / 2955 1935 / 1935 180 / 180 Balance 1138.709 / 4881.141 70901979.421 -1106.208 / -1056.208 -130 / -130 Weight 164 lb 3.91 oz 172 lb 9.6 oz 176 lb 1.6 oz 185 lb 14.4 oz Intake & Output 12/02/24 12/03/24 12/04/24 12/05/24 23:59 23:59 23:59 23:59 Intake Total 2551.252 / 3651.252 4878.709 / 4878.709 4935.421 / 4935.421 68.792 / 68.792 Output Total 650 / 1195 3740 / 3740 2955 / 2955 675 / 675 Balance 1901.252 / 2456.252 1138.709 / 1100.573 2881.421 / 1979.421 -606.208 / -606.208 Weight 163 lb 9 oz 164 lb 3.91 oz 172 lb 9.6 oz 176 lb 1.6 oz Microbiology Reports for the Last 24 Hours: Microbiology 12/04/24 08:55 Blood Blood Culture - Preliminary NO GROWTH AFTER 48 HOURS 12/04/24 09:10 Blood Blood Culture - Preliminary NO GROWTH AFTER 48 HOURS Microbiology 12/04/24 09:10 Blood Blood Culture - Preliminary NO GROWTH AFTER 24 HOURS 12/04/24 08:55 Blood Blood Culture - Preliminary NO GROWTH AFTER 24 HOURS 12/02/24 19:25 Buttock CRE Surveillance Culture - Final Negative 12/02/24 19:03 Nose MRSA Culture - Final Negative 12/02/24 20:17 Sputum - Endotracheal Tube Aspirate Gram Stain - Final 12/02/24 20:17 Sputum - Endotracheal Tube Aspirate Sputum Culture - Final No growth. 12/02/24 19:28 Urine,Clean Catch Urine Culture - Final NO GROWTH AFTER 48 HOURS Constitutional: Present moderate distress Comment:: Intubated and Sedated Head: Present normocephalic and atraumatic Neck: Present normal inspection and trachea midline Respiratory: Present respiratory distress and rhonchi; Absent prolonged expiratory phase or diminished air movement Cardiac: Present S1/S2 and Tachycardia GI: Present soft; Absent distention or tenderness Skin: Present intact; Absent cyanosis Neuro: Present alert, awake and oriented x 3 Extremities: Present normal inspection; Absent clubbing or cyanosis Psychiatric: Present unable to assess Assessment and Plan *Assessment and plan (1) Acute respiratory failure with hypoxia: Status: Acute Category: Medical Code(s): J96.01 - Acute respiratory failure with hypoxia Plan Ms. Vega is a 69-year-old female presented the ER with acute abdominal pain status post exploratory laparotomy found to have large anterior perforation near pylorus status post repair remain intubated postsurgery for airway support. Surgery has been following. Receiving vancomycin Zosyn and fluconazole since admission. No significant evidence of leukocytosis. Afebrile. Hemodynamically unstable needing pressors. Blood cultures no growth so far. Tracheal aspirate no growth. Chest x-ray from intubation and subsequent chest x-rays no acute pulmonary infiltrates. CTA abdomen with no evidence of pulmonary embolism no dense consolidative/airspace changes. Right lower lobe likely atelectasis. Examination tolerating SBT well. Alert, awake. Following commands. ABG Post SBT 7.48, 22.8 and a PO2 of 73 and 8 on 50% FiO2 and PS of 5 Interval update: No acute respiratory events overnight. Tolerating extubation well. Continue to remain on nasal cannula. Vancomycin discontinued yesterday. Plan: Continue oxygen supplementation to maintain O2 saturation goal of 90% and above. Needing 2 to 3 L nasal cannula. Incentive spirometry Volume optimization as per primary team No need for antibiotics from pulmonary standpoint. DuoNebs every 6 hours on a scheduled basis. Continue oxygen supplementation on as-needed basis to maintain O2 saturation below 90% and above # Thank you for involving pulmonary in this patient care. Will continue to follow-up
[2024-12-06] MEDS: ACETAMINOPHEN 1,000MG/100ML VIAL 1000 MG IV ×2 (09:43→18:10)
--- NOTE | 2024-12-06 09:55 | HMH.OTEV ---
OT Inpatient Evaluation Rehab OT IP Evaluation Start: 12/06/24 07:40 Freq: ONCE Status: Active Protocol: Document 12/06/24 09:44 LENNY (Rec: 12/06/24 09:55 LENNY [id number]) Rehab OT IP Assessment Subjective History PER Luiza Gary is a 69-year-old female with a history of osteoporosis who presents to the emergency department via EMS for abdominal pain and nausea. Patient states that she woke up today and had sudden onset generalized abdominal pain. She reports nausea but no vomiting. She reports that she has been having normal bowel movements and her last bowel movement was yesterday. She denies any dysuria, hematuria or changes in urinary frequency. She states that she has not had a fever. She denies any chest pain or shortness of breath. EMS noted that she was initially hypoxic to 85% but was on 2 L nasal cannula and route with oxygen saturation at 95% SpO2. She denies any cough. 12/06 PN: Plan for upper GI Gastroview per NG tube today. If no evidence of obstruction or leak may be able to remove nasogastric tube and start liquids if patient can tolerate. Patient was extubated yesterday and been placed on O2 at 2 to 3 L/min. Per nasal cannula. Patient denies abdominal pain this a.m. She feels short of breath. She denies any chest pain. She does have some calf tenderness. She complains of back pain with movement. Labs are being drawn at present time. She has had an adequate urinary output. She continues with NG tube to low wall suction. Nurses report adequate O2 sats. Subjective I wish I could tell ya. Pt was supine in bed when therapy entered. Nursing present performing bed mobility for hygiene. Pt was agreeable to sit on EOB. Pt went from supine to EOB dependent with three assists. Pt unable to tolerate sitting on EOB for more than 40 seconds. Pt then went from EOB to supine dependent. Pt left supine in bed with nursing present. Nursing reported pt lives with friend who assists pt when needed. Nursing reported pt uses AD for FM. Nursing reported pt performs stand pivot transfers to bedside commode. Objective Patient Orientation Person Right Upper Sev Limitation >75% Extremity Gross ROM Left Upper Extremity Sev Limitation >75% Gross ROM Shoulder ROM Muscle Weakness Limitations Elbow ROM Muscle Weakness Limitations Wrist Limitations of Muscle Weakness Range of Motion Bed Mobility bed mobility-scooting,bed mobility - supine/sit Assist Level Total/Dependent (100%) Decrease in Yes Endurance Rehab OT IP prob,goals,plan Problems Date of Evaluation: 12/06/24 OT IP Problems Bed Mobility,Transfers,Balance,Self care,Safety Rehab Potential Rehab Potential Good Equipment Needs Assistive Devices Standard Walker,Rolling / Wheeled Walker Plan OT intervention Plan Bed Mobility,Transfers,Balance,Self care,Safety, Therapeutic Exercise OT Plan Frequency Daily Duration LOS Discharge Goals Bed Mobility Ability Assistance x1 Sit to Stand Chair Moderate x 1 (50% assist) Transfer Ability Chair Transfer Moderate x 1 (50% assist) Ability Chair Transfer Stand Pivot Technique Chair Transfer Standard Walker,Rolling Walker Assistive Devices Feeding Ability Assist with Tray Set Up Commode/Toilet Raised Toilet Seat,Toilet Rails,Grab Bars Transfer Assistive Devices Decrease in No Endurance Discharge Plan OT Discharge Plan At this time, pt presents below baseline in occupational performance. Pt would benefit from skilled acute OT care while at [facility] to address functional limitations at this time. Once DC from [facility], pt would benefit from skilled OT services and interventions with SNF or inpatient rehab placement depending on recovery of pt and improvement while at [facility], to address functional limitations in occupational performance. Eval Complexity Eval Charge Codes 52191 - High Complexity PHYSICIAN CERTIFICATION: I certify the specified therapy services for [facility] are required, authorized, and reviewed every 30 days.
--- NOTE | 2024-12-06 10:00 | PC.NURSE ---
Patients oxygen turned down to 2 L NC. Continuation of care plan.
[2024-12-06] MEDS: D5W/0.45% NaCl w/40mEq KCl 1,000 ML 75 ML IV (12:41)
--- NOTE | 2024-12-06 13:12 | SW/DCPLANNER ---
Addendum entered by Seda Borges RN 12/09/24 11:56: Patient has been approved to go to [facility] today. Notified Anni Gage, nurse, patient, and family. Addendum entered by Malathi Navarrete 12/08/24 12:34: Per Evan precert will be started today. Addendum entered by Malathi Navarrete 12/08/24 10:15: Per Evan w/ Puneet Castrejon once updated information received precert will be started. CM has faxed all updated patient information. Addendum entered by Malathi Navarrete 12/07/24 07:52: Evna atkins/ Puneet Castrejon at bedside to evaluate yesterday 12/06. Per Evan he is interested and will continue to follow this patient. Discharge date is unknown at this time. Original Note: Spoke with patients caregiver (carlos) regarding discharge plans. Placement has been recommended for patient. Spoke to patients son as well regarding placement, patients son prefers [facility] or [facility],Patients son also agreed for [facility] in [place] if needed. Son gave verbal consent to fax information regarding patient. CM will continue to follow, discharge date unknown.
--- NOTE | 2024-12-06 13:25 | HMH.PTEV ---
Physical Therapy Evaluation Rehab PT IP Evaluation Start: 12/06/24 07:40 Freq: ONCE Status: Active Protocol: Document 12/06/24 09:50 PHORGÓMEZ (Rec: 12/06/24 13:25 PHORNE [id number]) Subjective/History History History 69-year-old significantly chronically debilitated essentially nonambulatory female from [facility] with history of osteoarthritis and degenerative disc disease. She is on diclofenac, meloxicam, Lyrica, tramadol, and hydromorphone via intrathecal pain pump. She had acute onset of abdominal pain with associated nausea earlier today on 12/02/2024. She was brought to the emergency department via EMS at which time she was found to have guarding in the epigastrium. Laboratory evaluation significant for elevated C-reactive protein of 19, lactate 2.3, white blood cell count 4700, lipase 858. She underwent CT scan which revealed minimal pneumoperitoneum with thickening of the distal stomach and duodenal bulb. She did have significant distention of the gallbladder with mild biliary ductal dilatation but no gallstones. Subjective Subjective Pt reports she lives with friend who assists with ADLs and she is generally able to ambulate household distances with [facility] How much help from another person do you currently need... Turning from your A lot back to your side while in a flat bed without using bedrails? Moving from lying on A lot back to sitting on the side of a flat bed without using bedrails? Moving to and from a Total bed to a chair ( including a wheelchair)? Standing up from a Total chair using your arms? (e.g., wheelchair, bedside chair) Walking in hospital Total room? Climbing 3-5 steps Total with a railing? Mobility Score 8 Mobility Level [facility] Mobility 3 Sit at edge of bed Mobility Calculator Rehab PT IP Eval Objective Appearance Patient Behavior Appropriate Patient Orientation Person,Place Difficulty following none instructions Speech Pattern Clear Ambulation Patient Able to No Ambulate Balance Ability to Arise Unable Sitting Balance Leans or slides in chair Dynamic Sitting Poor Balance Ability Transfers Bed Transfer Ability Maximum x 2 (75% assist) Rehab PT IP prob,goals,plan Problems Date of Evaluation: 12/06/24 PT IP Problems Bed Mobility,Transfers,Gait Rehab Potential Rehab Potential Good Plan PT Intervention Plan Bed Mobility,Transfers,Gait,Therapeutic Exercise PT Plan Frequency Daily Duration LOS Discharge Goals Bed Transfer Ability Moderate x 2 (50% assist) Sit to Stand Chair Moderate x 2 (50% assist) Transfer Ability Discharge Plan PT Discharge Plan Pt is currently most appropriate for rehab placement once medically stable for d/c. Skilled therapy is indicated to improve strength and transfers in order to improve pt QOL and return pt to [facility]. Eval Complexity Eval Charge Codes 33805 - High Complexity PHYSICIAN CERTIFICATION: I certify the specified therapy services for [facility] are required, authorized, and reviewed every 30 days.
--- NOTE | 2024-12-06 13:26 | SW/DCPLANNER ---
Laboratory Results - last 24 hr 12/05/24 17:49: POC Glucose 93 12/06/24 07:42: WBC 7.0, RBC 2.69 L, Hgb 8.4 L, Hct 24.8 L, MCV 92.2, MCH 31.2, MCHC 33.9, RDW 13.6, Plt Count 157, MPV 9.2, Neut % (Auto) 79.4, Lymph % (Auto) 8.9 L, [place] % (Auto) 8.1, Eos % (Auto) 2.4, Baso % (Auto) 0.3, Neut # (Auto) 5.5, Lymph # (Auto) 0.6 L, [place] # (Auto) 0.6, Eos # (Auto) 0.2, Baso # (Auto) 0.0, Sodium 134 L, Potassium 3.1 L, Chloride 105, Carbon Dioxide 26, Anion Gap 6.1, BUN 4 L D, Creatinine 0.50 L, Estimated Creat Clear 72, Estimated GFR 123, Est GFR ( Amer) 148 D, Glucose 117 H, Calcium 8.8, Total Bilirubin 0.6, AST 35, ALT 15, Alkaline Phosphatase 67, Total Protein 5.3 L, Albumin 2.4 L, Globulin 2.9, Albumin/Globulin Ratio 0.8 L
--- NOTE | 2024-12-06 13:27 | SW/DCPLANNER ---
Vital Signs Temperature 98.5 F 12/02/24 12:44 Pulse Rate 113 H 12/02/24 12:44 Respiratory Rate 16 12/02/24 12:44 Blood Pressure 112/77 12/02/24 12:44 02 Sat by Pulse Oximetry 93 L 12/02/24 12:44 Oxygen Delivery Method Nasal Cannula 12/02/24 12:44 Oxygen Flow Rate (LPM) 5 12/02/24 12:44 Temperature 98.9 F 12/06/24 12:33 Pulse Rate 83 12/06/24 12:16 Respiratory Rate 22 12/06/24 12:15 Blood Pressure 104/47 L 12/06/24 12:00 02 Sat by Pulse Oximetry 90 L 12/06/24 12:15 Oxygen Delivery Method Nasal Cannula 12/06/24 13:00 Oxygen Flow Rate (LPM) 3 12/06/24 13:00 Fraction of Inspired Oxygen 0.31 12/05/24 10:30
--- NOTE | 2024-12-06 13:31 | HMH.PTEV ---
Physical Therapy Evaluation Rehab PT IP Evaluation Start: 12/06/24 07:40 Freq: ONCE Status: Active Protocol: Document 12/06/24 09:50 PHORGÓMEZ (Rec: 12/06/24 13:25 PHORNE [id number]) Subjective/History History History 69-year-old significantly chronically debilitated essentially nonambulatory female from [facility] with history of osteoarthritis and degenerative disc disease. She is on diclofenac, meloxicam, Lyrica, tramadol, and hydromorphone via intrathecal pain pump. She had acute onset of abdominal pain with associated nausea earlier today on 12/02/2024. She was brought to the emergency department via EMS at which time she was found to have guarding in the epigastrium. Laboratory evaluation significant for elevated C-reactive protein of 19, lactate 2.3, white blood cell count 4700, lipase 858. She underwent CT scan which revealed minimal pneumoperitoneum with thickening of the distal stomach and duodenal bulb. She did have significant distention of the gallbladder with mild biliary ductal dilatation but no gallstones. Subjective Subjective Pt reports she lives with friend who assists with ADLs and she is generally able to ambulate household distances with [facility] How much help from another person do you currently need... Turning from your A lot back to your side while in a flat bed without using bedrails? Moving from lying on A lot back to sitting on the side of a flat bed without using bedrails? Moving to and from a Total bed to a chair ( including a wheelchair)? Standing up from a Total chair using your arms? (e.g., wheelchair, bedside chair) Walking in hospital Total room? Climbing 3-5 steps Total with a railing? Mobility Score 8 Mobility Level [facility] Mobility 3 Sit at edge of bed Mobility Calculator Rehab PT IP Eval Objective Appearance Patient Behavior Appropriate Patient Orientation Person,Place Difficulty following none instructions Speech Pattern Clear Ambulation Patient Able to No Ambulate Balance Ability to Arise Unable Sitting Balance Leans or slides in chair Dynamic Sitting Poor Balance Ability Transfers Bed Transfer Ability Maximum x 2 (75% assist) Rehab PT IP prob,goals,plan Problems Date of Evaluation: 12/06/24 PT IP Problems Bed Mobility,Transfers,Gait Rehab Potential Rehab Potential Good Plan PT Intervention Plan Bed Mobility,Transfers,Gait,Therapeutic Exercise PT Plan Frequency Daily Duration LOS Discharge Goals Bed Transfer Ability Moderate x 2 (50% assist) Sit to Stand Chair Moderate x 2 (50% assist) Transfer Ability Discharge Plan PT Discharge Plan Pt is currently most appropriate for rehab placement once medically stable for d/c. Skilled therapy is indicated to improve strength and transfers in order to improve pt QOL and return pt to OF. Eval Complexity Eval Charge Codes 57194 - High Complexity PHYSICIAN CERTIFICATION: I certify the specified therapy services for [facility] are required, authorized, and reviewed every 30 days.
[2024-12-06] MEDS: FUROSEMIDE 40MG/4ML VIAL 40 MG IV (13:55)
[2024-12-06] MEDS: PHENOL THROAT SPRAY 177 ML BOTTLE MM (15:38)
--- NOTE | 2024-12-06 16:00 | PC.NURSE ---
Report given to Milena London RN. Continuation of care plan.
--- NOTE | 2024-12-06 17:00 | PC.NURSE ---
Report recieved from MARITO Abbott. Report given to MARITO Jimenes. Continuation of care plan.
[2024-12-06] MEDS: FLUCONAZOLE IN NACL,ISO-OSM 200 MG/100 ML PIGGYBACK IV (18:11)
[2024-12-06] MEDS: PANTOPRAZOLE 40MG VIAL 40 MG IV (20:35)
[2024-12-07] VITALS (19 sets, daily range): BP systolic 113–132; BP diastolic 57–74; PULSE 68–91; RESP 17–27; TEMP 36.5–38.1; O2SAT 90–100; BMI 31.0
[2024-12-07] MEDS: IPRATROPIUM/ALBUTEROL 3 ML NEB IH ×3 (00:06→18:33)
[2024-12-07] MEDS: PIPERCILLIN/TAZO 3.375 GM in 0.9 % SODIUM CHLORIDE 50 ML IV ×4 (03:00→18:50)
[2024-12-07] MEDS: D5W/0.45% NaCl w/40mEq KCl 1,000 ML 75 ML IV ×2 (03:55→23:15)
[2024-12-07] MEDS: MORPHINE 2MG/ML SYRINGE 2 MG IV ×7 (05:01→22:28)
[2024-12-07 05:55] LABS: POC Glucose,Bedside 99 (70-110)
[2024-12-07 05:55] LABS: POC Glucose,Bedside 109 (70-110)
[2024-12-07 05:55] LABS: POC Glucose,Bedside 116 (70-110)
[2024-12-07 05:55] LABS: POC Glucose,Bedside 120 (70-110)
[2024-12-07 05:55] LABS: POC Glucose,Bedside 116 (70-110)
[2024-12-07 05:55] LABS: POC Glucose,Bedside 112 (70-110)
[2024-12-07 05:55] LABS: POC Glucose,Bedside 102 (70-110)
[2024-12-07 05:55] LABS: POC Glucose,Bedside 101 (70-110)
[2024-12-07 06:15] LABS: Hematocrit 26.7 % (37.0-47.0); Hemoglobin 9.1 g/dL (12.2-16.2); Immature Granulocytes % 2.1 %; Mean Corpuscular HGB Conc 34.1 g/dL (31.8-35.4); Mean Corpuscular Hemoglobin 31.4 pg (27.0-31.2); Mean Corpuscular Volume 92.1 fl (81-99); Nucleated Red Blood Cells % 0 %; Platelet Count 192 K/mm3 (142-424); Red Blood Count 2.90 M/mm3 (4.20-5.40); Red Cell Distribution Width-SD 46.7 fL; White Blood Count 8.7 K/mm3 (4.8-10.8)
[2024-12-07 06:31] LABS: Anion Gap 4.7 mEq/L (5-15); Blood Urea Nitrogen 3 mg/dl (7-17); Calcium 8.8 mg/dl (8.4-10.2); Carbon Dioxide 29 mmol/L (22.0-30.0); Chloride 105 mmol/L (98-107); Creatinine Clearance Estimated 65 mL/min (50-200); Creatinine,Serum 0.50 mg/dl (0.52-1.04); Estimated Glomerular Filt Rate 123 ml/min (>60); GFR (African American) 148 ML/MIN (>60); Glucose 103 mg/dl (74-100); Magnesium 1.4 mg/dl (1.6-2.3); Potassium 3.7 mmoL/L (3.5-5.1); Sodium 135 mmol/L (136-145)
--- NOTE | 2024-12-07 06:34 | EXP.SURG.PN ---
Subjective Narrative: No issues overnight. Patient unable to undergo upper GI contrast study yesterday due to lack of radiology PA coverage. Scheduled for this morning. Exam Data for Last 24 hours Vital signs and Labs for Last 24 Hours: Temp Pulse Resp BP Pulse Ox O2 Del Method O2 Flow Rate 100.6 F H 76 26 H 132/74 94 L Nasal Cannula 3 12/07/24 05:40 12/07/24 06:04 12/07/24 06:00 12/07/24 06:00 12/07/24 06:04 12/07/24 06:04 12/07/24 06:04 FiO2 0.31 12/05/24 10:30 Laboratory Results - last 24 hr 12/05/24 19:50: POC Glucose 101 12/06/24 01:56: POC Glucose 116 H 12/06/24 07:42: WBC 7.0, RBC 2.69 L, Hgb 8.4 L, Hct 24.8 L, MCV 92.2, MCH 31.2, MCHC 33.9, RDW 13.6, Plt Count 157, MPV 9.2, Neut % (Auto) 79.4, Lymph % (Auto) 8.9 L, [place] % (Auto) 8.1, Eos % (Auto) 2.4, Baso % (Auto) 0.3, Neut # (Auto) 5.5, Lymph # (Auto) 0.6 L, [place] # (Auto) 0.6, Eos # (Auto) 0.2, Baso # (Auto) 0.0, Sodium 134 L, Potassium 3.1 L, Chloride 105, Carbon Dioxide 26, Anion Gap 6.1, BUN 4 L D, Creatinine 0.50 L, Estimated Creat Clear 72, Estimated GFR 123, Est GFR ( Amer) 148 D, Glucose 117 H, Calcium 8.8, Total Bilirubin 0.6, AST 35, ALT 15, Alkaline Phosphatase 67, Total Protein 5.3 L, Albumin 2.4 L, Globulin 2.9, Albumin/Globulin Ratio 0.8 L 12/06/24 08:25: POC Glucose 120 H 12/06/24 11:40: POC Glucose 112 H 12/06/24 18:19: POC Glucose 99 12/06/24 19:36: POC Glucose 109 12/07/24 02:02: POC Glucose 102 12/07/24 04:40: WBC 8.7, RBC 2.90 L, Hgb 9.1 L, Hct 26.7 L, MCV 92.1, MCH 31.4 H, MCHC 34.1, RDW 13.8, Plt Count 192, MPV 9.8, Neut % (Auto) 77.6, Lymph % (Auto) 8.2 L, [place] % (Auto) 9.0, Eos % (Auto) 2.9, Baso % (Auto) 0.2, Neut # (Auto) 6.7, Lymph # (Auto) 0.7, [place] # (Auto) 0.8, Eos # (Auto) 0.3, Baso # (Auto) 0.0, Sodium 135 L, Potassium 3.7, Chloride 105, Carbon Dioxide 29, Anion Gap 4.7 L, BUN 3 L, Creatinine 0.50 L, Estimated Creat Clear 65, Estimated GFR 123, Est GFR ( Amer) 148, Glucose 103 H, Calcium 8.8, Magnesium 1.4 L D 12/07/24 05:02: POC Glucose 116 H I & O for Last 24 hours: Intake & Output 12/04/24 12/05/24 12/06/24 12/07/24 11:59 11:59 11:59 11:59 Intake Total 3825.806 / 3825.806 2820.655 / 2820.655 810 / 810 Output Total 3475 / 3475 2685 / 2685 850 / 850 5320 / 5320 Balance 350.806 / 350.806 135.655 / 135.655 -40 / -40 -5320 / -5320 Weight 172 lb 9.6 oz 176 lb 1.6 oz 185 lb 14.4 oz 168 lb 11.2 oz Microbiology Reports for the Last 24 Hours: Microbiology 12/04/24 08:55 Blood Blood Culture - Preliminary NO GROWTH AFTER 48 HOURS 12/04/24 09:10 Blood Blood Culture - Preliminary NO GROWTH AFTER 48 HOURS Constitutional Constitutional: no acute distress Progress Note: A&P Assessment and plan (1) Acute respiratory failure with hypoxia: Status: Acute Assessment and Plan Assessment and Plan for All Diagnoses:: Upper GI this morning. If no evidence of any leak or obstruction likely remove nasogastric tube and start clear liquids if patient is able to tolerate.
--- NOTE | 2024-12-07 08:30 | P.PN_ITS ---
Subjective *Date: 12/07/24 *Time: 12:25 Interval history: Patient just had pain medication. She is more alert this am. Her caregiver states she slept off and on. Medical Exam Vital signs and Labs for Last 24 Hours: Vital Signs Temp Pulse Pulse Resp BP BP Pulse Ox 12/07/24 08:00 98.3 F 81 24 126/68 93 L 12/07/24 07:00 83 25 H 92 L 12/07/24 07:00 127/66 12/07/24 06:56 12/07/24 06:04 76 12/07/24 06:04 77 12/07/24 06:04 94 L 12/07/24 06:00 80 26 H 132/74 94 L 12/07/24 05:40 100.6 F H 12/07/24 05:00 89 26 H 91 L 12/07/24 05:00 118/63 12/07/24 05:00 12/07/24 04:00 90 92 L 12/07/24 04:00 90 12/07/24 04:00 91 H 27 H 91 L 12/07/24 04:00 119/63 12/07/24 03:00 86 23 94 L 12/07/24 03:00 129/64 12/07/24 03:00 12/07/24 02:00 87 25 H 121/59 L 90 L 12/07/24 01:00 91 H 25 H 113/57 L 92 L 12/07/24 01:00 12/07/24 00:06 68 12/07/24 00:06 72 12/07/24 00:06 94 L 12/07/24 00:00 70 12/07/24 00:00 87 100 12/07/24 00:00 99.2 F 74 26 H 122/63 93 L 12/06/24 23:00 72 23 131/71 92 L 12/06/24 23:00 12/06/24 22:00 70 23 122/62 93 L 12/06/24 21:00 73 20 114/58 L 91 L 12/06/24 20:41 12/06/24 20:00 80 12/06/24 20:00 99.2 F 80 26 H 127/63 92 L 12/06/24 19:52 64 90 L 12/06/24 19:15 81 23 93 L 12/06/24 19:08 71 12/06/24 19:08 74 12/06/24 19:08 96 12/06/24 19:07 96 12/06/24 19:00 77 26 H 122/63 92 L 12/06/24 18:45 81 25 H 90 L 12/06/24 18:34 12/06/24 18:30 79 35 H 130/62 91 L 12/06/24 18:15 77 27 H 91 L 12/06/24 18:06 100.0 F H 12/06/24 18:00 75 30 H 126/66 92 L 12/06/24 18:00 90 L 12/06/24 17:45 78 25 H 91 L 12/06/24 17:30 78 30 H 122/62 92 L 12/06/24 17:15 83 30 H 89 L 12/06/24 17:00 81 28 H 123/61 91 L 12/06/24 17:00 12/06/24 16:45 81 24 91 L 12/06/24 16:30 75 25 H 124/64 91 L 12/06/24 16:15 75 27 H 94 L 12/06/24 16:00 78 29 H 118/67 92 L 12/06/24 16:00 79 12/06/24 16:00 74 20 118/67 93 L 12/06/24 15:47 93 L 12/06/24 15:35 99.4 F 12/06/24 15:30 75 22 124/58 L 93 L 12/06/24 15:30 92 L 12/06/24 15:15 77 28 H 92 L 12/06/24 15:00 81 28 H 120/60 90 L 12/06/24 15:00 12/06/24 14:45 71 26 H 92 L 12/06/24 14:30 80 28 H 102/65 L 88 L 12/06/24 14:15 79 24 91 L 12/06/24 14:00 83 23 103/54 L 94 L 12/06/24 13:53 93 L 12/06/24 13:45 76 24 93 L 12/06/24 13:30 73 21 113/57 L 92 L 12/06/24 13:15 80 27 H 91 L 12/06/24 13:00 75 20 114/59 L 91 L 12/06/24 13:00 07/22/25 12:45 76 27 H 91 L 12/06/24 12:33 98.9 F 12/06/24 12:30 74 20 113/55 L 88 L 12/06/24 12:16 83 12/06/24 12:15 80 22 90 L 12/06/24 12:00 76 21 104/47 L 89 L 12/06/24 12:00 92 L 12/06/24 11:45 80 25 H 89 L 12/06/24 11:31 75 21 103/50 L 90 L 12/06/24 11:30 76 20 90 L 12/06/24 11:15 74 21 95 12/06/24 11:10 73 12/06/24 11:10 72 12/06/24 11:00 63 20 109/50 L 91 L 12/06/24 11:00 12/06/24 10:45 72 25 H 92 L 12/06/24 10:30 75 22 110/52 L 92 L 12/06/24 10:15 71 25 H 94 L 12/06/24 10:00 74 27 H 126/64 92 L 12/06/24 10:00 93 L 12/06/24 09:45 74 28 H 93 L 12/06/24 09:43 100.5 F H 12/06/24 09:30 78 34 H 119/67 93 L 12/06/24 09:15 72 27 H 94 L 12/06/24 09:00 70 23 113/59 L 93 L 12/06/24 09:00 12/06/24 08:45 75 27 H 94 L O2 Del Method O2 Flow Rate 12/07/24 08:00 Nasal Cannula 3 12/07/24 07:00 Nasal Cannula 3 12/07/24 07:00 12/07/24 06:56 Nasal Cannula 3 12/07/24 06:04 12/07/24 06:04 12/07/24 06:04 Nasal Cannula 3 12/07/24 06:00 Nasal Cannula 3 12/07/24 05:40 12/07/24 05:00 Nasal Cannula 3 12/07/24 05:00 12/07/24 05:00 Nasal Cannula 3 12/07/24 04:00 Nasal Cannula 3 12/07/24 04:00 12/07/24 04:00 Nasal Cannula 3 12/07/24 04:00 12/07/24 03:00 12/07/24 03:00 12/07/24 03:00 Nasal Cannula 3 12/07/24 02:00 Nasal Cannula 3 12/07/24 01:00 Nasal Cannula 3 12/07/24 01:00 Nasal Cannula 3 12/07/24 00:06 12/07/24 00:06 12/07/24 00:06 Nasal Cannula 3 12/07/24 00:00 12/07/24 00:00 Nasal Cannula 3 12/07/24 00:00 Nasal Cannula 3 12/06/24 23:00 Nasal Cannula 3 12/06/24 23:00 Nasal Cannula 3 12/06/24 22:00 Nasal Cannula 3 12/06/24 21:00 Nasal Cannula 3 12/06/24 20:41 Nasal Cannula 3 12/06/24 20:00 12/06/24 20:00 Nasal Cannula 3 12/06/24 19:52 Nasal Cannula 3 12/06/24 19:15 Nasal Cannula 3 12/06/24 19:08 12/06/24 19:08 12/06/24 19:08 Nasal Cannula 3 12/06/24 19:07 12/06/24 19:00 Nasal Cannula 3 12/06/24 18:45 Nasal Cannula 3 12/06/24 18:34 Nasal Cannula 3 12/06/24 18:30 Nasal Cannula 3 12/06/24 18:15 Nasal Cannula 3 12/06/24 18:06 12/06/24 18:00 Nasal Cannula 3 12/06/24 18:00 3 12/06/24 17:45 Nasal Cannula 3 12/06/24 17:30 Nasal Cannula 3 12/06/24 17:15 Nasal Cannula 3 12/06/24 17:00 Nasal Cannula 3 12/06/24 17:00 Nasal Cannula 3 12/06/24 16:45 Nasal Cannula 3 12/06/24 16:30 Nasal Cannula 3 12/06/24 16:15 Nasal Cannula 3 12/06/24 16:00 Nasal Cannula 3 12/06/24 16:00 12/06/24 16:00 Nasal Cannula 3 12/06/24 15:47 Nasal Cannula 3 12/06/24 15:35 12/06/24 15:30 Nasal Cannula 3 12/06/24 15:30 Nasal Cannula 3 12/06/24 15:15 Nasal Cannula 3 12/06/24 15:00 Nasal Cannula 3 12/06/24 15:00 Nasal Cannula 3 12/06/24 14:45 Nasal Cannula 3 12/06/24 14:30 Nasal Cannula 3 12/06/24 14:15 Nasal Cannula 3 12/06/24 14:00 Nasal Cannula 3 12/06/24 13:53 3 12/06/24 13:45 Nasal Cannula 3 12/06/24 13:30 Nasal Cannula 3 12/06/24 13:15 12/06/24 13:00 Nasal Cannula 3 12/06/24 13:00 Nasal Cannula 3 12/06/24 12:45 Nasal Cannula 3 12/06/24 12:33 12/06/24 12:30 Nasal Cannula 3 12/06/24 12:16 12/06/24 12:15 Nasal Cannula 3 12/06/24 12:00 Nasal Cannula 3 12/06/24 12:00 Nasal Cannula 3 12/06/24 11:45 Nasal Cannula 3 12/06/24 11:31 Nasal Cannula 3 12/06/24 11:30 Nasal Cannula 3 12/06/24 11:15 Nasal Cannula 3 12/06/24 11:10 12/06/24 11:10 12/06/24 11:00 Nasal Cannula 3 12/06/24 11:00 Nasal Cannula 2 12/06/24 10:45 Nasal Cannula 2 12/06/24 10:30 Nasal Cannula 2 12/06/24 10:15 Nasal Cannula 2 12/06/24 10:00 Nasal Cannula 2 12/06/24 10:00 2 12/06/24 09:45 Nasal Cannula 3 12/06/24 09:43 12/06/24 09:30 Nasal Cannula 3 12/06/24 09:15 Nasal Cannula 3 12/06/24 09:00 Nasal Cannula 3 12/06/24 09:00 Nasal Cannula 3 12/06/24 08:45 Nasal Cannula 3 Intake and Output 12/06/24 12/07/24 12/07/24 19:59 03:59 11:59 Output Total 4060 / 5370 850 / 5370 460 / 5370 Balance -4060 / -5370 -850 / -5370 -460 / -5370 Output: Output, Urine Amount 3605 / 4555 550 / 4555 400 / 4555 Output, Urine Amount (Catheter) 425 / 725 250 / 725 50 / 725 Ramirez 425 / 725 250 / 725 50 / 725 Output, Drainage Amount Right Upper Abdomen Other: Number of Unmeasured Voids 1 0 0 Number of Bowel Movements 1 Weight 168 lb 11.2 oz Patient Weight 12/07/24 11:59 Weight 168 lb 11.2 oz Laboratory Results - last 24 hr 12/05/24 19:50: POC Glucose 101 12/06/24 01:56: POC Glucose 116 H 12/06/24 08:25: POC Glucose 120 H 12/06/24 11:40: POC Glucose 112 H 12/06/24 18:19: POC Glucose 99 12/06/24 19:36: POC Glucose 109 12/07/24 02:02: POC Glucose 102 12/07/24 04:40: WBC 8.7, RBC 2.90 L, Hgb 9.1 L, Hct 26.7 L, MCV 92.1, MCH 31.4 H , MCHC 34.1, RDW 13.8, Plt Count 192, MPV 9.8, Neut % (Auto) 77.6, Lymph % (Auto) 8.2 L, [place] % (Auto) 9.0, Eos % (Auto) 2.9, Baso % (Auto) 0.2, Neut # (Auto) 6.7, Lymph # (Auto) 0.7, [place] # (Auto) 0.8, Eos # (Auto) 0.3, Baso # (Auto) 0.0, Sodium 135 L, Potassium 3.7, Chloride 105, Carbon Dioxide 29, Anion Gap 4.7 L, BUN 3 L, Creatinine 0.50 L, Estimated Creat Clear 65, Estimated GFR 123, Est GFR ( Amer) 148, Glucose 103 H, Calcium 8.8, Magnesium 1.4 L D 12/07/24 05:02: POC Glucose 116 H I & O for Labs for Last 24 Hours: Intake & Output 12/04/24 12/05/24 12/06/24 12/07/24 11:59 11:59 11:59 11:59 Intake Total 3825.806 / 3825.806 2820.655 / 2820.655 810 / 810 Output Total 3475 / 3475 2685 / 2685 850 / 850 5370 / 5370 Balance 350.806 / 350.806 135.655 / 135.655 -40 / -40 -5370 / -5370 Weight 172 lb 9.6 oz 176 lb 1.6 oz 185 lb 14.4 oz 168 lb 11.2 oz Microbiology Reports for the Last 24 Hours: Microbiology 12/04/24 08:55 Blood Blood Culture - Preliminary NO GROWTH AFTER 48 HOURS 12/04/24 09:10 Blood Blood Culture - Preliminary NO GROWTH AFTER 48 HOURS Constitutional: Present no acute distress (opens eyes to questions) Respiratory: Present decreased breath sounds and CTA bilaterally Cardiac: Present Reg Rate and Rhythm GI: Present tenderness (incisional) and incision (bandage in place, tender over incision) Extremities: Present edema (trace edema bilaterally) Comment:: SCD's inplace Skin: Present pallor Neuro: Present awake Assessment and Plan *Assessment and plan (1) Perforated bowel: Status: Acute Category: Medical Code(s): K63.1 - Perforation of intestine (nontraumatic) (2) Peptic ulcer disease: Status: Acute Category: Medical Code(s): K27.9 - Peptic ulcer, site unspecified, unspecified as acute or chronic, without hemorrhage or perforation (3) Debility: Status: Acute Category: Medical Code(s): R53.81 - Other malaise (4) Type 2 diabetes mellitus: Status: Acute Category: Medical Code(s): E11.9 - Type 2 diabetes mellitus without complications (5) Iron deficiency anemia: Status: Acute Category: Medical Code(s): D50.9 - Iron deficiency anemia, unspecified (6) Asthma: Status: Acute Category: Medical Code(s): J45.909 - Unspecified asthma, uncomplicated (7) Sepsis: Status: Acute Category: Medical Code(s): A41.9 - Sepsis, unspecified organism (8) Hypotension: Status: Acute Category: Medical Code(s): I95.9 - Hypotension, unspecified (9) Tachycardia: Status: Acute Category: Medical Code(s): R00.0 - Tachycardia, unspecified (10) Elevated lactic acid level: Status: Acute Category: Medical Code(s): R79.89 - Other specified abnormal findings of blood chemistry (11) Tachypnea: Status: Acute Category: Medical Code(s): R06.82 - Tachypnea, not elsewhere classified (12) Anemia: Status: Acute Category: Medical Code(s): D64.9 - Anemia, unspecified (13) Respirator weaning: Status: Acute Category: Medical Code(s): Z99.11 - Dependence on respirator [ventilator] status (14) Implantable intrathecal infusion pump present: Status: Acute Category: Medical Code(s): Z96.89 - Presence of other specified functional implants (15) Hypokalemia: Status: Acute Category: Medical Code(s): E87.6 - Hypokalemia Plan Patient is being taking down to radiology for an upper GI this am. Surgery to follow. Lungs do sound better today. Dr. Jacob entry - Saw patient, agree with above note. UGI shows no leak. OK to remove NG tube and start clear liquids.
--- NOTE | 2024-12-07 08:30 | FL_ITS ---
FINAL REPORT CLINICAL HISTORY: PERFORATED ULCER, GASTROVIEW PER NG EVALUATE FOR GASTRIC OUTLET OBSTRUCTION, LEAK 1.51 FLUORO TIME 117.49 MGY 240ML GASTROVIEW FINDINGS: UPPER GI EXAM HISTORY: Abdominal pain with possible gastric outlet obstruction. PROCEDURE: Gastrografin was injected through the patient's NG tube. Spot and overhead films were obtained. FINDINGS: There is moderate gastroesophageal reflux. The study is limited by the patient's immobility. Peristalsis is normal. The rugal fold pattern of the stomach is normal. The duodenal bulb is normal. There is no extravasation of contrast. Fluoroscopy time: 1 minute 51 seconds Radiation exposure in Reference air Kerma: 117.49 mGy IMPRESSION: 1. Limited study secondary to patient immobility. 2. No extravasation of contrast. 3. No evidence of gastric outlet obstruction. 4. Moderate gastroesophageal reflux. Films reviewed , interpreted and dictated by Dr. Hinds. Transcribed by Pepe Nicolas PA-C. Reviewed, Interpreted and Dictated by Kerry Hinds MD Transcribed by CYNTHIA Brunner Authenticated and . [facility]
[2024-12-07] MEDS: DIATRIZOATE MEGLUMINE(GASTROGRAFIN) 66%-10% 120ML 240 ML PO (08:57)
[2024-12-07 09:28] LABS: POC Glucose,Bedside 91 (70-110)
--- NOTE | 2024-12-07 10:05 | P.PN_ITS ---
Subjective *Date: 12/07/24 *Time: 11:53 Interval history: No acute respiratory vents overnight. Patient denies any new respiratory complaints. Pulmonology Exam Inpatient Vital signs and Labs for Last 24 Hours: Temp Pulse Resp BP Pulse Ox O2 Del Method O2 Flow Rate 98.3 F 86 26 H 120/72 91 L Nasal Cannula 3 12/07/24 08:00 12/07/24 10:00 12/07/24 10:00 12/07/24 10:00 12/07/24 10:00 12/07/24 10:00 12/07/24 10:00 FiO2 0.31 12/05/24 10:30 Laboratory Results - last 24 hr 12/05/24 19:50: POC Glucose 101 12/06/24 01:56: POC Glucose 116 H 12/06/24 08:25: POC Glucose 120 H 12/06/24 11:40: POC Glucose 112 H 12/06/24 18:19: POC Glucose 99 12/06/24 19:36: POC Glucose 109 12/07/24 02:02: POC Glucose 102 12/07/24 04:40: WBC 8.7, RBC 2.90 L, Hgb 9.1 L, Hct 26.7 L, MCV 92.1, MCH 31.4 H , MCHC 34.1, RDW 13.8, Plt Count 192, MPV 9.8, Neut % (Auto) 77.6, Lymph % (Auto) 8.2 L, [place] % (Auto) 9.0, Eos % (Auto) 2.9, Baso % (Auto) 0.2, Neut # (Auto) 6.7, Lymph # (Auto) 0.7, [place] # (Auto) 0.8, Eos # (Auto) 0.3, Baso # (Auto) 0.0, Sodium 135 L, Potassium 3.7, Chloride 105, Carbon Dioxide 29, Anion Gap 4.7 L, BUN 3 L, Creatinine 0.50 L, Estimated Creat Clear 65, Estimated GFR 123, Est GFR ( Amer) 148, Glucose 103 H, Calcium 8.8, Magnesium 1.4 L D 12/07/24 05:02: POC Glucose 116 H 12/07/24 09:19: POC Glucose 91 Temp Pulse Resp BP Pulse Ox O2 Del Method O2 Flow Rate 99.2 F 97 H 19 135/71 91 L Mechanical Ventilation 30 12/05/24 06:45 12/05/24 08:15 12/05/24 08:29 12/05/24 08:15 12/05/24 08:15 12/05/24 08:00 12/05/24 06:30 FiO2 0.31 12/05/24 08:00 Laboratory Results - last 24 hr 12/04/24 14:21: POC Glucose 94 12/04/24 14:23: Specimen Source Left radial, O2 % 40%, ABG pH 7.50 H, ABG pCO2 28.1 L, ABG pO2 107.4 H, ABG HCO3 21.4 L, ABG Total CO2 22.2 L, ABG O2 Saturation 99, ABG Base Excess -1.8, Henry Test Acceptable, PEEP 5 12/04/24 19:34: POC Glucose 76 12/04/24 20:48: Vancomycin Trough 10.5 H 12/05/24 01:10: Vancomycin Peak 21.4 12/05/24 01:54: POC Glucose 70 12/05/24 05:31: WBC 7.7 D, RBC 2.62 L, Hgb 8.0 L D, Hct 24.9 L, MCV 95.0, MCH 30.5, MCHC 32.1, RDW 14.3, Plt Count 188, MPV 9.9, Neut % (Auto) 77.1, Lymph % (Auto) 10.8, [place] % (Auto) 5.5, Eos % (Auto) 5.9, Baso % (Auto) 0.3, Neut # (Auto) 5.9, Lymph # (Auto) 0.8, [place] # (Auto) 0.4, Eos # (Auto) 0.5 H, Baso # (Auto) 0.0, Sodium 134 L, Potassium 3.3 L, Chloride 109 H, Carbon Dioxide 22, Anion Gap 6.3, BUN 11 D, Creatinine 0.60 D, Estimated Creat Clear 67, Estimated GFR 99, Est GFR ( Amer) 120 D, Glucose 68 L D, Calcium 8.9 12/05/24 07:52: POC Glucose 78 12/05/24 09:08: Specimen Source Right radial, O2 % 30, ABG pH 7.48 H, ABG pCO2 22.8 L, ABG pO2 73.8 L, ABG HCO3 16.7 L, ABG Total CO2 17.4 L, ABG O2 Saturation 94, ABG Base Excess -6.7 L, Henry Test Acceptable, ABG Lactate 0.5, PEEP 5 I & O for Labs for Last 24 Hours: Intake & Output 12/04/24 12/05/24 12/06/24 12/07/24 23:59 23:59 23:59 23:59 Intake Total 4935.421 / 4935.421 828.792 / 878.792 50 / 50 Output Total 2955 / 2955 1935 / 1935 4540 / 4840 1210 / 1210 Balance / 1979.421 -1106.208 / -1056.208 -4490 / -4790 -1210 / -1210 Weight 172 lb 9.6 oz 176 lb 1.6 oz 185 lb 14.4 oz 168 lb 11.2 oz Intake & Output 12/02/24 12/03/24 12/04/24 12/05/24 23:59 23:59 23:59 23:59 Intake Total 2551.252 / 3651.252 4878.709 / 4878.709 4935.421 / 4935.421 68.792 / 68.792 Output Total 650 / 1195 3740 / 3740 2955 / 2955 675 / 675 Balance 1901.252 / 2456.252 1138.709 / 6200.948 8123.421 / 1979.421 -606.208 / - 606.208 Weight 163 lb 9 oz 164 lb 3.91 oz 172 lb 9.6 oz 176 lb 1.6 oz Microbiology Reports for the Last 24 Hours: Microbiology 12/04/24 08:55 Blood Blood Culture - Preliminary NO GROWTH AFTER 48 HOURS 12/04/24 09:10 Blood Blood Culture - Preliminary NO GROWTH AFTER 48 HOURS Microbiology 12/04/24 09:10 Blood Blood Culture - Preliminary NO GROWTH AFTER 24 HOURS 12/04/24 08:55 Blood Blood Culture - Preliminary NO GROWTH AFTER 24 HOURS 12/02/24 19:25 Buttock CRE Surveillance Culture - Final Negative 12/02/24 19:03 Nose MRSA Culture - Final Negative 12/02/24 20:17 Sputum - Endotracheal Tube Aspirate Gram Stain - Final 12/02/24 20:17 Sputum - Endotracheal Tube Aspirate Sputum Culture - Final No growth. 12/02/24 19:28 Urine,Clean Catch Urine Culture - Final NO GROWTH AFTER 48 HOURS Constitutional: Present moderate distress Comment:: Intubated and Sedated Head: Present normocephalic and atraumatic Neck: Present normal inspection and trachea midline Respiratory: Present respiratory distress and rhonchi; Absent prolonged expiratory phase or diminished air movement Cardiac: Present S1/S2 and Tachycardia GI: Present soft; Absent distention or tenderness Skin: Present intact; Absent cyanosis Neuro: Absent alert or awake Extremities: Present normal inspection; Absent clubbing or cyanosis Psychiatric: Present unable to assess Assessment and Plan *Assessment and plan (1) Acute respiratory failure with hypoxia: Status: Acute Category: Medical Code(s): J96.01 - Acute respiratory failure with hypoxia Plan Ms. Vega is a 69-year-old female presented the ER with acute abdominal pain status post exploratory laparotomy found to have large anterior perforation near pylorus status post repair remain intubated postsurgery for airway support. Surgery has been following. Receiving vancomycin Zosyn and fluconazole since admission. No significant evidence of leukocytosis. Afebrile. Hemodynamically unstable needing pressors. Blood cultures no growth so far. Tracheal aspirate no growth. Chest x-ray from intubation and subsequent chest x-rays no acute pulmonary infiltrates. CTA abdomen with no evidence of pulmonary embolism no dense consolidative/airspace changes. Right lower lobe likely atelectasis. Examination tolerating SBT well. Alert, awake. Following commands. ABG Post SBT 7.48, 22.8 and a PO2 of 73 and 8 on 50% FiO2 and PS of 5 Interval update: No acute respiratory events overnight. Continue to remain on nasal cannula, no significant improvement in her respiratory status. Appears drowsy this morning. VBG did not show any evidence of hypercarbic respiratory failure, pH is 7.51 with a pCO2 of 30.4. Advised to be more compliant with incentive spirometry Follow-up with chest x-ray Plan: Continue oxygen supplementation to maintain O2 saturation goal of 90% and above. Needing 2 to 3 L nasal cannula. Incentive spirometry Volume optimization as per primary team No need for antibiotics from pulmonary standpoint. DuoNebs every 6 hours on a scheduled basis. Continue oxygen supplementation on as-needed basis to maintain O2 saturation below 90% and above # Thank you for involving pulmonary in this patient care. Will continue to follow-up
--- NOTE | 2024-12-07 10:10 | DIET.NUTRFU ---
Addendum entered by Emily Kothari RD, KEREN 12/07/24 12:28: UGI shows no leak. OK to remove NG tube and start clear liquids. Addendum entered by Emily Kothari RD, KEREN 12/07/24 10:14: BS monitored 91-116 Original Note: Patient has now been NPO x5 days. KLC/Dextrose has been running to help met minimal nutritional needs. Having GI radiology today, gastrografin study today. If oral diet is not medically feasible, TPN would be recommended at this time. Patient is at risk for malnutrition.
[2024-12-07 11:15] LABS: VBG HCO3 23.7 mmol/L (23-30); VBG PCO2 30.4 mmol/L (35-51); VBG PH 7.51 mmol/L (7.31-7.41); VBG PO2 69.3 mmol/L (28-40)
[2024-12-07 11:16] LABS: Lactate Venous 0.6 mmol/L (0.4-2.0)
--- NOTE | 2024-12-07 11:53 | XR_ITS ---
FINAL REPORT TECHNIQUE: Single view chest CLINICAL HISTORY: SOB COMPARISON: 12/03/2024 FINDINGS: A single view of the chest was obtained. The heart and mediastinum are within normal limits. There are bibasilar pulmonary opacities with pleural effusions and atelectasis, right greater than left. Findings have mildly progressed. There is an NG tube seen entering the stomach. ET tube is not well-visualized with questionable location at the thoracic inlet. IMPRESSION: Worsening effusions and atelectasis. Reviewed, Interpreted and Dictated by Kerry Hnids MD Transcribed by Pia Fitzpatrick Authenticated and [facility]
--- NOTE | 2024-12-07 12:50 | PC.NURSE ---
NG tube pulled at this time per 's jeremie. Pt tolerated well.
[2024-12-07 14:28] LABS: POC Glucose,Bedside 101 (70-110)
--- NOTE | 2024-12-07 16:05 | PC.NURSE ---
pt left to unit transferring to the med surg floor at this time
--- NOTE | 2024-12-07 16:09 | PC.NURSE ---
arrived by bed from ICU
[2024-12-07] MEDS: FLUCONAZOLE IN NACL,ISO-OSM 200 MG/100 ML PIGGYBACK IV (19:34)
[2024-12-07] MEDS: PANTOPRAZOLE 40MG VIAL 40 MG IV (20:22)
[2024-12-07] MEDS: SODIUM CHLORIDE 0.9% 10ML VIAL 10 ML IV (20:22)
[2024-12-07 20:35] LABS: POC Glucose,Bedside 84 (70-110)
[2024-12-08] VITALS (11 sets, daily range): BP systolic 113–140; BP diastolic 60–71; PULSE 65–100; RESP 16–18; TEMP 36.4–36.8; O2SAT 90–96
[2024-12-08] MEDS: IPRATROPIUM/ALBUTEROL 3 ML NEB IH ×5 (00:20→23:39)
[2024-12-08] MEDS: PIPERCILLIN/TAZO 3.375 GM in 0.9 % SODIUM CHLORIDE 50 ML IV ×4 (01:16→20:00)
[2024-12-08 01:38] LABS: POC Glucose,Bedside 102 (70-110)
[2024-12-08] MEDS: MORPHINE 2MG/ML SYRINGE 2 MG IV ×4 (01:46→23:15)
--- NOTE | 2024-12-08 06:20 | PC.NURSE ---
Pt has voiced multiple complaints of generalized pain. PRN pain medication administered per MAR. Pt repositioned and turned frequently. Pt has two BMs during shift, brown and loose. Pt has been a/o x4 throughout shift but remains lethargic and appears pale. VS remain stable. Tolerating 3 L nc well with sat >90%. Call light within reach.
--- NOTE | 2024-12-08 08:12 | EXP.SURG.PN ---
Subjective Narrative: Gastrografin study revealed no obvious leak or obstruction. Started clear liquids yesterday which she has tolerated. Exam Data for Last 24 hours Vital signs and Labs for Last 24 Hours: Temp Pulse Resp BP Pulse Ox O2 Del Method O2 Flow Rate 97.7 F 72 16 114/70 90 L Nasal Cannula 3 12/08/24 04:00 12/08/24 06:19 12/08/24 04:00 12/08/24 04:00 12/08/24 06:19 12/08/24 06:35 12/08/24 06:35 FiO2 0.31 12/05/24 10:30 Laboratory Results - last 24 hr 12/07/24 09:19: POC Glucose 91 12/07/24 11:05: VBG pH 7.51 H, VBG pCO2 30.4 L, VBG pO2 69.3 H, VBG HCO3 23.7, VBG Total CO2 24.6, VBG O2 Saturation 94.9 H, VBG Base Excess 0.7, VBG Lactic Acid 0.6 12/07/24 14:21: POC Glucose 101 12/07/24 20:25: POC Glucose 84 12/08/24 01:19: POC Glucose 102 I & O for Last 24 hours: Intake & Output 12/05/24 12/06/24 12/07/24 12/08/24 11:59 11:59 11:59 11:59 Intake Total 2820.655 / 2820.655 810 / 810 2686 / 2686 Output Total 2685 / 2685 850 / 850 5615 / 5615 1785 / 1785 Balance 135.655 / 135.655 -40 / -40 -5615 / -5615 901 / 901 Weight 176 lb 1.6 oz 185 lb 14.4 oz 168 lb 11.2 oz *Routine Abdominal Exam Abdominal: Present soft; Absent tenderness Comments: PABLITO with minimal serous output. Progress Note: A&P Assessment and plan (1) Perforated bowel: Status: Acute (2) Peptic ulcer disease: Status: Acute (3) Debility: Status: Acute (4) Type 2 diabetes mellitus: Status: Acute (5) Iron deficiency anemia: Status: Acute (6) Asthma: Status: Acute (7) Sepsis: Status: Acute (8) Hypotension: Status: Acute (9) Tachycardia: Status: Acute (10) Elevated lactic acid level: Status: Acute (11) Tachypnea: Status: Acute (12) Anemia: Status: Acute (13) Respirator weaning: Status: Acute (14) Implantable intrathecal infusion pump present: Status: Acute (15) Hypokalemia: Status: Acute Assessment and Plan Assessment and Plan for All Diagnoses:: Removed PABLITO drain. Advance to full liquid diet.
--- NOTE | 2024-12-08 08:19 | EXP.ACUTE.PN ---
Subjective *Date: 12/08/24 *Time: 08:35 Interval history: Patient is feeling better this am. She is tolerating her diet and wants to go home. She is still having pain. Her drain was pulled this am. Medical Exam Vital signs and Labs for Last 24 Hours: Vital Signs Temp Pulse Resp BP Pulse Ox O2 Del Method O2 Flow Rate 12/08/24 06:35 Nasal Cannula 3 12/08/24 06:19 72 12/08/24 06:19 70 12/08/24 06:19 90 L Nasal Cannula 3 12/08/24 05:00 Nasal Cannula 3 12/08/24 04:00 97.7 F 68 16 114/70 92 L Nasal Cannula 3 12/08/24 02:52 Nasal Cannula 3 12/08/24 00:45 Nasal Cannula 3 12/08/24 00:23 65 12/08/24 00:23 69 12/08/24 00:00 98.2 F 69 17 128/60 92 L Nasal Cannula 3 12/08/24 00:00 92 L Nasal Cannula 3 12/07/24 22:45 Nasal Cannula 2 12/07/24 21:00 Nasal Cannula 2 12/07/24 20:00 97.7 F 85 17 129/68 93 L Nasal Cannula 2 12/07/24 20:00 Nasal Cannula 2 12/07/24 18:33 87 12/07/24 18:33 91 H 12/07/24 18:33 92 L Nasal Cannula 2 12/07/24 18:31 Nasal Cannula 3 12/07/24 17:00 Nasal Cannula 3 12/07/24 16:00 Nasal Cannula 3 12/07/24 16:00 98.9 F 79 24 127/72 94 L Nasal Cannula 2 12/07/24 15:00 Nasal Cannula 3 12/07/24 13:00 Nasal Cannula 3 12/07/24 12:00 80 12/07/24 12:00 98.9 F 77 26 H 126/68 91 L Nasal Cannula 3 12/07/24 12:00 80 12/07/24 12:00 Nasal Cannula 3 12/07/24 11:00 75 20 130/63 94 L Nasal Cannula 3 12/07/24 11:00 Nasal Cannula 3 12/07/24 10:00 86 26 H 120/72 91 L Nasal Cannula 3 12/07/24 09:11 83 24 128/68 92 L Nasal Cannula 3 12/07/24 09:00 Nasal Cannula 3 Intake and Output 12/07/24 12/08/24 12/08/24 19:59 03:59 11:59 Intake Total 1897 / 2686 100 / 2686 689 / 2686 Output Total 585 / 1785 300 / 1785 900 / 1785 Balance 1312 / 901 -200 / 901 -211 / 901 Intake: Intake, Oral Amount 120 / 120 Intake, Total IV Amount 1777 / 2566 100 / 2566 689 / 2566 D5W/0.45% NaCl w/40mEq KCl 1, 1677 / 2366 689 / 2366 000 ml @ 75 mls/hr IV .[id number] [facility] Rx#:[id number] Fluconazole in NaCl,Iso-Osm 200 100 / 100 mg In 100 ml @ 200 mls/hr IV Q24H [facility] Rx#:[id number] Pipercillin/Tazo 3.375 gm In 0. 100 / 100 9 % Sodium Chloride 50 ml @ 100 mls/hr IV Q6H [facility] Rx#:[id number] Output: Output, Urine Amount 225 / 1425 300 / 1425 900 / 1425 Output, Urine Amount (Catheter) 60 / 60 Ramirez 60 / 60 Output, Gastric Drainage Amount 300 / 300 Left Nare 300 / 300 Other: Number of Unmeasured Voids 0 0 0 Number of Bowel Movements 1 Laboratory Results - last 24 hr 12/07/24 09:19: POC Glucose 91 12/07/24 11:05: VBG pH 7.51 H, VBG pCO2 30.4 L, VBG pO2 69.3 H, VBG HCO3 23.7, VBG Total CO2 24.6, VBG O2 Saturation 94.9 H, VBG Base Excess 0.7, VBG Lactic Acid 0.6 12/07/24 14:21: POC Glucose 101 12/07/24 20:25: POC Glucose 84 12/08/24 01:19: POC Glucose 102 I & O for Labs for Last 24 Hours: Intake & Output 12/05/24 12/06/24 12/07/24 12/08/24 11:59 11:59 11:59 11:59 Intake Total 2820.655 / 2820.655 810 / 810 2686 / 2686 Output Total 2685 / 2685 850 / 850 5615 / 5615 1785 / 1785 Balance 135.655 / 135.655 -40 / -40 -5615 / -5615 901 / 901 Weight 176 lb 1.6 oz 185 lb 14.4 oz 168 lb 11.2 oz Constitutional: Present no acute distress Respiratory: Present decreased breath sounds and CTA bilaterally Cardiac: Present Reg Rate and Rhythm GI: Present tenderness (incisional) and incision (tender over incision) Extremities: Present edema (trace edema bilaterally) Comment:: SCD's inplace Skin: Present intact Neuro: Present alert, awake and oriented x 3 Assessment and Plan *Assessment and plan (1) Perforated bowel: Status: Acute Category: Medical Code(s): K63.1 - Perforation of intestine (nontraumatic) (2) Peptic ulcer disease: Status: Acute Category: Medical Code(s): K27.9 - Peptic ulcer, site unspecified, unspecified as acute or chronic, without hemorrhage or perforation (3) Debility: Status: Acute Category: Medical Code(s): R53.81 - Other malaise (4) Type 2 diabetes mellitus: Status: Acute Category: Medical Code(s): E11.9 - Type 2 diabetes mellitus without complications (5) Iron deficiency anemia: Status: Acute Category: Medical Code(s): D50.9 - Iron deficiency anemia, unspecified (6) Asthma: Status: Acute Category: Medical Code(s): J45.909 - Unspecified asthma, uncomplicated (7) Sepsis: Status: Acute Category: Medical Code(s): A41.9 - Sepsis, unspecified organism (8) Hypotension: Status: Acute Category: Medical Code(s): I95.9 - Hypotension, unspecified (9) Tachycardia: Status: Acute Category: Medical Code(s): R00.0 - Tachycardia, unspecified (10) Elevated lactic acid level: Status: Acute Category: Medical Code(s): R79.89 - Other specified abnormal findings of blood chemistry (11) Tachypnea: Status: Acute Category: Medical Code(s): R06.82 - Tachypnea, not elsewhere classified (12) Anemia: Status: Acute Category: Medical Code(s): D64.9 - Anemia, unspecified (13) Respirator weaning: Status: Acute Category: Medical Code(s): Z99.11 - Dependence on respirator [ventilator] status (14) Implantable intrathecal infusion pump present: Status: Acute Category: Medical Code(s): Z96.89 - Presence of other specified functional implants (15) Hypokalemia: Status: Acute Category: Medical Code(s): E87.6 - Hypokalemia Plan Surgery to follow. Patient is improving. Will advance diet. Dr. Jacob entry - Saw patient,a gree with above note. Replace magnesium today, advance diet, discharge plan discussed with patient and care management. She will need short term rehab at time of discharge.
--- NOTE | 2024-12-08 09:52 | XR_ITS ---
FINAL REPORT CLINICAL HISTORY: SOB COMPARISON: 12/07/2024 FINDINGS: No acute pulmonary opacity is present. There is a moderate right effusion. There has been interval removal of NG tube. There is no pneumothorax. Mediastinum is unremarkable. Mild cardiomegaly is identified. IMPRESSION: Stable right effusion. Reviewed, Interpreted and Dictated by Kerry Hinds MD Transcribed by Evon Galo Authenticated and [facility]
--- NOTE | 2024-12-08 09:52 | EXP.PULM.PN ---
Subjective *Date: 12/08/24 *Time: 12:41 Interval history: No acute respiratory vents overnight. Patient denies any new respiratory complaints. Pulmonology Exam Inpatient Vital signs and Labs for Last 24 Hours: Temp Pulse Resp BP Pulse Ox O2 Del Method O2 Flow Rate 97.7 F 80 18 113/66 91 L Nasal Cannula 3 12/08/24 08:00 12/08/24 08:00 12/08/24 08:00 12/08/24 08:00 12/08/24 08:00 12/08/24 08:00 12/08/24 08:00 FiO2 0.31 12/05/24 10:30 Laboratory Results - last 24 hr 12/07/24 11:05: VBG pH 7.51 H, VBG pCO2 30.4 L, VBG pO2 69.3 H, VBG HCO3 23.7, VBG Total CO2 24.6, VBG O2 Saturation 94.9 H, VBG Base Excess 0.7, VBG Lactic Acid 0.6 12/07/24 14:21: POC Glucose 101 12/07/24 20:25: POC Glucose 84 12/08/24 01:19: POC Glucose 102 Temp Pulse Resp BP Pulse Ox O2 Del Method O2 Flow Rate 99.2 F 97 H 19 135/71 91 L Mechanical Ventilation 30 12/05/24 06:45 12/05/24 08:15 12/05/24 08:29 12/05/24 08:15 12/05/24 08:15 12/05/24 08:00 12/05/24 06:30 FiO2 0.31 12/05/24 08:00 Laboratory Results - last 24 hr 12/04/24 14:21: POC Glucose 94 12/04/24 14:23: Specimen Source Left radial, O2 % 40%, ABG pH 7.50 H, ABG pCO2 28.1 L, ABG pO2 107.4 H, ABG HCO3 21.4 L, ABG Total CO2 22.2 L, ABG O2 Saturation 99, ABG Base Excess -1.8, Henry Test Acceptable, PEEP 5 12/04/24 19:34: POC Glucose 76 12/04/24 20:48: Vancomycin Trough 10.5 H 12/05/24 01:10: Vancomycin Peak 21.4 12/05/24 01:54: POC Glucose 70 12/05/24 05:31: WBC 7.7 D, RBC 2.62 L, Hgb 8.0 L D, Hct 24.9 L, MCV 95.0, MCH 30.5, MCHC 32.1, RDW 14.3, Plt Count 188, MPV 9.9, Neut % (Auto) 77.1, Lymph % (Auto) 10.8, [place] % (Auto) 5.5, Eos % (Auto) 5.9, Baso % (Auto) 0.3, Neut # (Auto) 5.9, Lymph # (Auto) 0.8, [place] # (Auto) 0.4, Eos # (Auto) 0.5 H, Baso # (Auto) 0.0, Sodium 134 L, Potassium 3.3 L, Chloride 109 H, Carbon Dioxide 22, Anion Gap 6.3, BUN 11 D, Creatinine 0.60 D, Estimated Creat Clear 67, Estimated GFR 99, Est GFR ( Amer) 120 D, Glucose 68 L D, Calcium 8.9 12/05/24 07:52: POC Glucose 78 12/05/24 09:08: Specimen Source Right radial, O2 % 30, ABG pH 7.48 H, ABG pCO2 22.8 L, ABG pO2 73.8 L, ABG HCO3 16.7 L, ABG Total CO2 17.4 L, ABG O2 Saturation 94, ABG Base Excess -6.7 L, Henry Test Acceptable, ABG Lactate 0.5, PEEP 5 I & O for Labs for Last 24 Hours: Intake & Output 12/05/24 12/06/24 12/07/24 12/08/24 23:59 23:59 23:59 23:59 Intake Total 828.792 / 878.792 50 / 50 1996 / 1996 969 / 969 Output Total 1935 / 1935 4540 / 4840 2140 / 2140 1400 / 1400 Balance -1106.208 / -1056.208 -4490 / -4790 -143 / -143 -431 / -431 Weight 176 lb 1.6 oz 185 lb 14.4 oz 168 lb 11.2 oz Intake & Output 12/02/24 12/03/24 12/04/24 12/05/24 23:59 23:59 23:59 23:59 Intake Total 2551.252 / 5521.252 4878.709 / 4878.709 4935.421 / 4935.421 68.792 / 68.792 Output Total 650 / 1195 3740 / 3740 2955 / 2955 675 / 675 Balance 1901.252 / 2456.252 1138.709 / 1264.882 9084.421 / 1980.421 -606.208 / -606.208 Weight 163 lb 9 oz 164 lb 3.91 oz 172 lb 9.6 oz 176 lb 1.6 oz Microbiology Reports for the Last 24 Hours: Microbiology 12/04/24 09:10 Blood Blood Culture - Preliminary NO GROWTH AFTER 4 DAYS 12/04/24 08:55 Blood Blood Culture - Preliminary NO GROWTH AFTER 4 DAYS Microbiology 12/04/24 09:10 Blood Blood Culture - Preliminary NO GROWTH AFTER 24 HOURS 12/04/24 08:55 Blood Blood Culture - Preliminary NO GROWTH AFTER 24 HOURS 12/02/24 19:25 Buttock CRE Surveillance Culture - Final Negative 12/02/24 19:03 Nose MRSA Culture - Final Negative 12/02/24 20:17 Sputum - Endotracheal Tube Aspirate Gram Stain - Final 12/02/24 20:17 Sputum - Endotracheal Tube Aspirate Sputum Culture - Final No growth. 12/02/24 19:28 Urine,Clean Catch Urine Culture - Final NO GROWTH AFTER 48 HOURS Constitutional: Present moderate distress Comment:: Intubated and Sedated Head: Present normocephalic and atraumatic Neck: Present normal inspection and trachea midline Respiratory: Present respiratory distress and rhonchi; Absent prolonged expiratory phase or diminished air movement Cardiac: Present S1/S2 and Tachycardia GI: Present soft; Absent distention or tenderness Skin: Present intact; Absent cyanosis Neuro: Absent alert or awake Extremities: Present normal inspection; Absent clubbing or cyanosis Psychiatric: Present unable to assess Assessment and Plan *Assessment and plan (1) Acute respiratory failure with hypoxia: Status: Acute Category: Medical Code(s): J96.01 - Acute respiratory failure with hypoxia (2) Pleural effusion on right: Status: Acute Category: Medical Code(s): J90 - Pleural effusion, not elsewhere classified Plan Ms. Vega is a 69-year-old female presented the ER with acute abdominal pain status post exploratory laparotomy found to have large anterior perforation near pylorus status post repair remain intubated postsurgery for airway support. Surgery has been following. Receiving vancomycin Zosyn and fluconazole since admission. No significant evidence of leukocytosis. Afebrile. Hemodynamically unstable needing pressors. Blood cultures no growth so far. Tracheal aspirate no growth. Chest x-ray from intubation and subsequent chest x-rays no acute pulmonary infiltrates. CTA chest with no evidence of pulmonary embolism, no dense consolidative/airspace changes. Right lower lobe likely atelectasis. Examination tolerating SBT well. Alert, awake. Following commands. ABG Post SBT 7.48, 22.8 and a PO2 of 73 and 8 on 50% FiO2 and PS of 5 Interval update: No acute respiratory events overnight. Continue to remain on nasal cannula. Afebrile. Hemodynamically stable. No evidence of leukocytosis. Chest x-ray from this morning worsening right-sided pleural effusion. Plan: Lasix 40 mg IV once Continue oxygen supplementation to maintain O2 saturation goal of 90% and above. Needing 2 to 3 L nasal cannula. Incentive spirometry Volume optimization as per primary team No need for antibiotics from pulmonary standpoint. DuoNebs every 6 hours on a scheduled basis. Continue oxygen supplementation on as-needed basis to maintain O2 saturation below 90% and above # Thank you for involving pulmonary in this patient care. Will continue to follow-up
--- NOTE | 2024-12-08 09:56 | PC.NURSE ---
per efraín valadez fsbg. notified bridgette billy) for an US IV.
--- NOTE | 2024-12-08 10:11 | CARE MANAGER ---
Current Medications Acetaminophen (Acetaminophen 1,000mg/100ml Vial) 1,000 mg IV Q6HP PRN PRN Reason: Mild pain(1-3),fever,headache Stop: 01/04/25 16:12 Last Admin: 12/06/24 18:10 Dose: 1,000 mg Albuterol/Ipratropium (Ipratropium/Albuterol 3 Ml Neb) 3 ml IH Q2HP PRN PRN Reason: Wheezing Stop: 01/01/25 19:06 Albuterol/Ipratropium (Ipratropium/Albuterol 3 Ml Neb) 3 ml IH Q6RT [facility] Stop: 01/04/25 17:59 Last Admin: 12/08/24 06:18 Dose: 3 ml Piperacillin Sod/Tazobactam (Sod 3.375 gm/ Sodium Chloride) 50 mls @ 100 mls/hr IV Q6H [facility] Stop: 12/12/24 18:59 Last Admin: 12/08/24 06:18 Dose: 100 mls/hr Fluconazole (Diflucan 200mg/100ml Ivpb) 200 mg in 100 mls @ 200 mls/hr IV Q24H [facility] Stop: 12/12/24 18:59 Last Admin: 12/07/24 19:34 Dose: 200 mls/hr Potassium Chloride/Dextrose/Sod Cl (Kcl 40meq In Dex 5%/0.45% Nacl) 1,000 mls @ 75 mls/hr IV .[id number] [facility] Stop: 01/04/25 08:44 Last Admin: 12/08/24 04:38 Dose: Not Given Morphine Sulfate (Morphine 2mg/Ml Syringe) 2 mg IV Q2HP PRN PRN Reason: Severe Pain (7-10) Stop: 01/01/25 19:06 Last Admin: 12/08/24 08:13 Dose: 2 mg Pantoprazole Sodium (Pantoprazole 40mg Tablet) 40 mg PO HS [facility] Stop: 01/07/25 20:59 Phenol (Phenol Throat [place] 177 Ml Bottle) 1 ml MM DAILYP PRN PRN Reason: Cough Stop: 01/05/25 13:14 Last Admin: 12/06/24 15:38 Dose: 1 spray Sodium Chloride (Sodium Chloride 3% 15ml Neb) 3 ml IH ONCE PRN PRN Reason: INDUCE [employer] Stop: 01/01/25 19:06 Sodium Chloride (Sodium Chloride 0.9% 10ml Flush Syringe) 10 ml IV NEEDED PRN PRN Reason: Maintain IV Site Stop: 01/03/25 10:10
[2024-12-08] MEDS: ACETAMINOPHEN 1,000MG/100ML VIAL 1000 MG IV (11:47)
[2024-12-08] MEDS: MAGNESIUM SULFATE IN WATER 2 GM/50 ML PIGGYBACK IV (11:57)
[2024-12-08] MEDS: FUROSEMIDE 40MG/4ML VIAL 40 MG IV (14:30)
[2024-12-08] MEDS: TRAMADOL 50MG TABLET 50 MG PO ×2 (14:30→20:20)
--- NOTE | 2024-12-08 17:11 | PC.NURSE ---
pt has done very well today. alert and oriented and has been awake all day. sat in the chair at bs for a few hrs. beck removed and purewick in place, okay with efraín. also per claritza kenny ivmf. pt has been afebrile this shift.. sitter is it bs, no needs at this time.
[2024-12-08] MEDS: FLUCONAZOLE IN NACL,ISO-OSM 200 MG/100 ML PIGGYBACK IV (20:00)
[2024-12-08] MEDS: PANTOPRAZOLE 40MG TABLET 40 MG PO (20:20)
--- NOTE | 2024-12-08 22:14 | PC.NURSE ---
Addendum entered by Vanessa Lockett RN 12/08/24 23:12: Deepak Escamilla RN inserted a new, 20G IV site into the left upper arm via ultrasound-guide at this time. Antibiotic infusions will be resumed, morphine to be administered per MAR. Original Note: Late Entry (for approximately 21:00): during the patient's antibiotic infusions (started at 20:00 per JUL; however, was stopped for a short period of time around 20:20 for a bed change + bathing), the patient's IV pump started to alarm repeatedly, distal occlusion. Infusion was stopped, and the IV site (in the left antecubital) was assessed. I attempted to flush the IV site + assess for blood return, but the IV site was unable to be flushed + returned. IV site appeared to be no longer working. Antibiotic infusion remains stopped on standby. Failed IV site was removed. Catheter tip piece (20G) intact post-removal. Deepak Escamilla RN was notified (late notification by me due to other outside patient interventions) at around 22:10 about this for an ultrasound-guided insertion (patient previously had IV site ultrasound-guided as well). Antibiotic infusion will be continued once a new IV site is established. One time dose of morphine (verbal order was obtained by Javier ALVARADO/faxed to overnight pharmacy this shift due to patient's report of persistent, unrelieved pain despite previous Tramadol administration per JUL) will also be given per MAR after regain of IV access.
[2024-12-09] VITALS (9 sets, daily range): BP systolic 120–143; BP diastolic 60–83; PULSE 55–95; RESP 14–18; TEMP 36.6–36.9; O2SAT 84–97; BMI 31.4
[2024-12-09] MEDS: PIPERCILLIN/TAZO 3.375 GM in 0.9 % SODIUM CHLORIDE 50 ML IV ×3 (01:05→13:08)
[2024-12-09] MEDS: TRAMADOL 50MG TABLET 50 MG PO ×2 (02:55→06:45)
--- NOTE | 2024-12-09 04:17 | PC.NURSE ---
Blue linen bags were taken out, ice was filled, and bedside table was reorganized and wiped at this time. [id number]
[2024-12-09] MEDS: IPRATROPIUM/ALBUTEROL 3 ML NEB IH ×3 (05:53→18:49)
--- NOTE | 2024-12-09 06:22 | PC.NURSE ---
A Molly RT notified me that she placed 2 L of oxygen via nasal cannula onto the patient due to decreased oxygen saturations (at around 06:00).
[2024-12-09 06:29] LABS: Hematocrit 27.7 % (37.0-47.0); Hemoglobin 8.7 g/dL (12.2-16.2); Immature Granulocytes % 4.1 %; Mean Corpuscular HGB Conc 31.4 g/dL (31.8-35.4); Mean Corpuscular Hemoglobin 29.0 pg (27.0-31.2); Mean Corpuscular Volume 92.3 fl (81-99); Nucleated Red Blood Cells % 0 %; Platelet Count 292 K/mm3 (142-424); Red Blood Count 3.00 M/mm3 (4.20-5.40); Red Cell Distribution Width-SD 46.3 fL; White Blood Count 12.5 K/mm3 (4.8-10.8)
--- NOTE | 2024-12-09 06:35 | PC.NURSE ---
Trash taken out at [id number]
[2024-12-09 06:39] LABS: Anion Gap 7.3 mEq/L (5-15); Blood Urea Nitrogen 3 mg/dl (7-17); Calcium 8.7 mg/dl (8.4-10.2); Carbon Dioxide 33 mmol/L (22.0-30.0); Chloride 95 mmol/L (98-107); Creatinine Clearance Estimated 66 mL/min (50-200); Creatinine,Serum 0.70 mg/dl (0.52-1.04); Estimated Glomerular Filt Rate 83 ml/min (>60); GFR (African American) 101 ML/MIN (>60); Glucose 82 mg/dl (74-100); Magnesium 1.7 mg/dl (1.6-2.3); Potassium 3.3 mmoL/L (3.5-5.1); Sodium 132 mmol/L (136-145)
[2024-12-09 08:12] LABS: RBC Morphology Normal; Total Cells Counted 100
--- NOTE | 2024-12-09 08:26 | EXP.ACUTE.PN ---
Subjective *Date: 12/09/24 *Time: 08:55 Interval history: Patient states she is in a lot of pain today. She has not had any morphine and the tramadol isn't controlling her pain. She is requesting something different. She has been able to tolerate her diet and had numerous BM's. She slept off and on last night. Medical Exam Vital signs and Labs for Last 24 Hours: Vital Signs Temp Pulse Pulse Resp BP Pulse Ox O2 Del Method 12/09/24 07:00 Nasal Cannula 12/09/24 05:55 87 12/09/24 05:55 89 12/09/24 05:55 84 L Room Air 12/09/24 05:00 Room Air 12/09/24 04:00 98.4 F 82 14 143/74 H 91 L Room Air 12/09/24 03:00 Room Air 12/09/24 01:00 Room Air 12/09/24 00:00 98.4 F 83 15 126/67 91 L Room Air 12/08/24 23:40 90 12/08/24 23:40 92 H 12/08/24 23:00 Room Air 12/08/24 21:00 Room Air 12/08/24 20:00 Room Air 12/08/24 20:00 97.9 F 100 H 16 140/71 92 L Room Air 12/08/24 18:40 Room Air 12/08/24 18:22 98 H 12/08/24 18:22 97 H 12/08/24 17:00 Room Air 12/08/24 15:51 97.6 F 98 H 16 118/70 94 L Nasal Cannula 12/08/24 15:00 Room Air 12/08/24 13:00 Room Air 12/08/24 11:53 98.3 F 97 H 18 134/68 96 Nasal Cannula 12/08/24 11:09 84 12/08/24 11:09 78 12/08/24 11:00 Nasal Cannula 12/08/24 09:00 Nasal Cannula O2 Flow Rate 12/09/24 07:00 2 12/09/24 05:55 12/09/24 05:55 12/09/24 05:55 12/09/24 05:00 12/09/24 04:00 12/09/24 03:00 12/09/24 01:00 12/09/24 00:00 12/08/24 23:40 12/08/24 23:40 12/08/24 23:00 12/08/24 21:00 12/08/24 20:00 12/08/24 20:00 12/08/24 18:40 12/08/24 18:22 12/08/24 18:22 12/08/24 17:00 12/08/24 15:51 1 12/08/24 15:00 12/08/24 13:00 12/08/24 11:53 3 12/08/24 11:09 12/08/24 11:09 12/08/24 11:00 3 12/08/24 09:00 3 Intake and Output 12/08/24 12/09/24 12/09/24 19:59 03:59 11:59 Intake Total 600 / 968 368 / 968 Output Total 1300 / 1800 500 / 1800 0 / 1800 Balance -700 / -832 -132 / -832 0 / -832 Intake: Intake, Oral Amount 600 / 818 218 / 818 Infusion Intake 150 / 150 Fluconazole in NaCl,Iso-Osm 200 100 / 100 mg In 100 ml @ 200 mls/hr IV Q24H [facility] Rx#:[id number] Pipercillin/Tazo 3.375 gm In 0. 50 / 50 9 % Sodium Chloride 50 ml @ 100 mls/hr IV Q6H [facility] Rx#:[id number] Output: Output, Urine Amount 1300 / 1800 500 / 1800 0 / 1800 Other: Number of Unmeasured Voids 1 1 1 Number of Bowel Movements 1 2 2 Weight 170 lb 15.143 oz Patient Weight 12/09/24 11:59 Weight 170 lb 15.143 oz Laboratory Results - last 24 hr 12/09/24 05:27: WBC 12.5 H D, RBC 3.00 L, Hgb 8.7 L, Hct 27.7 L, MCV 92.3, MCH 29.0, MCHC 31.4 L, RDW 13.6, Plt Count 292 D, MPV 9.1, Neut % (Auto) 74.6, Lymph % (Auto) 9.7 L, [place] % (Auto) 7.5, Eos % (Auto) 3.8, Baso % (Auto) 0.3, Neut # (Auto) 9.3 H, Lymph # (Auto) 1.2, [place] # (Auto) 0.9, Eos # (Auto) 0.5 H, Baso # (Auto) 0.0, Total Counted 100, Neutrophils % (Manual) 85 H, Lymphocytes % (Manual) 11, Monocytes % (Manual) 1 L, Eosinophils % (Manual) 3, Platelet Estimate Normal, RBC Morphology Normal, Sodium 132 L, Potassium 3.3 L, Chloride 95 L, Carbon Dioxide 33 H, Anion Gap 7.3, BUN 3 L, Creatinine 0.70 D, Estimated Creat Clear 66, Estimated GFR 83, Est GFR ( Amer) 101 D, Glucose 82, Calcium 8.7, Magnesium 1.7 D I & O for Labs for Last 24 Hours: Intake & Output 12/06/24 12/07/24 12/08/24 12/09/24 11:59 11:59 11:59 11:59 Intake Total 810 / 810 2966 / 2966 968 / 968 Output Total 850 / 850 5615 / 5615 2485 / 2485 1800 / 1800 Balance -40 / -40 -5615 / -5615 481 / 481 -832 / -832 Weight 185 lb 14.4 oz 168 lb 11.2 oz 170 lb 15.143 oz Microbiology Reports for the Last 24 Hours: Microbiology 12/04/24 09:10 Blood Blood Culture - Preliminary NO GROWTH AFTER 4 DAYS 12/04/24 08:55 Blood Blood Culture - Preliminary NO GROWTH AFTER 4 DAYS Constitutional: Present no acute distress Respiratory: Present decreased breath sounds and CTA bilaterally Cardiac: Present Reg Rate and Rhythm GI: Present tenderness (incisional) and incision (tender over incision) Extremities: Present edema (trace edema bilaterally) Comment:: SCD's inplace Skin: Present intact Neuro: Present alert, awake and oriented x 3 Assessment and Plan *Assessment and plan (1) Perforated bowel: Status: Acute Category: Medical Code(s): K63.1 - Perforation of intestine (nontraumatic) (2) Peptic ulcer disease: Status: Acute Category: Medical Code(s): K27.9 - Peptic ulcer, site unspecified, unspecified as acute or chronic, without hemorrhage or perforation (3) Debility: Status: Acute Category: Medical Code(s): R53.81 - Other malaise (4) Type 2 diabetes mellitus: Status: Acute Category: Medical Code(s): E11.9 - Type 2 diabetes mellitus without complications (5) Iron deficiency anemia: Status: Acute Category: Medical Code(s): D50.9 - Iron deficiency anemia, unspecified (6) Asthma: Status: Acute Category: Medical Code(s): J45.909 - Unspecified asthma, uncomplicated (7) Sepsis: Status: Acute Category: Medical Code(s): A41.9 - Sepsis, unspecified organism (8) Hypotension: Status: Acute Category: Medical Code(s): I95.9 - Hypotension, unspecified (9) Tachycardia: Status: Acute Category: Medical Code(s): R00.0 - Tachycardia, unspecified (10) Elevated lactic acid level: Status: Acute Category: Medical Code(s): R79.89 - Other specified abnormal findings of blood chemistry (11) Tachypnea: Status: Acute Category: Medical Code(s): R06.82 - Tachypnea, not elsewhere classified (12) Anemia: Status: Acute Category: Medical Code(s): D64.9 - Anemia, unspecified (13) Respirator weaning: Status: Acute Category: Medical Code(s): Z99.11 - Dependence on respirator [ventilator] status (14) Implantable intrathecal infusion pump present: Status: Acute Category: Medical Code(s): Z96.89 - Presence of other specified functional implants (15) Hypokalemia: Status: Acute Category: Medical Code(s): E87.6 - Hypokalemia Plan Surgery to follow. Patient is improving. Will discuss pain medication with Dr. Jacob. Awaiting short term rehab approval. Dr. Jacob entry - Saw patient, agree with above note, will advance to soft diet, stop Tramadol and start [place] today, replace potassium, still needs a small amount of supplemental oxygen.
[2024-12-09] MEDS: HYDROCODONE/APAP 5/325 MG TABLET 1 TAB PO ×4 (09:26→22:41)
--- NOTE | 2024-12-09 09:42 | CA_ITS ---
FINAL REPORT CLINICAL HISTORY: chronic leg pain FINDINGS: Multiple transverse and longitudinal scans were performed of the femoral popliteal deep venous system, with augmentation and compression maneuvers. Normal phasic flow was noted in the visualized deep venous system. No intraluminal increased echogenicity is noted to suggest thrombus. There is normal compression and augmentation of the venous structures. No abnormal venous collaterals are seen. IMPRESSION: No evidence of deep venous thrombosis of the bilateral lower extremities. Reviewed, Interpreted and Dictated by Kerry Hinds MD Transcribed by Evon Galo Authenticated and [facility]
--- NOTE | 2024-12-09 09:42 | XR_ITS ---
FINAL REPORT CLINICAL HISTORY: SOB FINDINGS: There is moderate right pleural effusion. There is right lower lobe and right middle lobe airspace disease, may represent pneumonia and/or atelectasis. Minimal left basilar atelectasis is identified. There is no pneumothorax. Mediastinum is unremarkable. 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 Heart size is normal. IMPRESSION: Minimal improvement of right pleural effusion with right lower lobe and right middle lobe opacities, representing atelectasis and/or pneumonia. Reviewed, Interpreted and Dictated by Kerry Hinds MD Transcribed by Evon Galo Authenticated and . [facility]
--- NOTE | 2024-12-09 09:42 | P.PN_ITS ---
Subjective *Date: 12/09/24 *Time: 11:40 Pulmonology Exam Inpatient Vital signs and Labs for Last 24 Hours: Temp Pulse Resp BP Pulse Ox O2 Del Method O2 Flow Rate 98.4 F 87 14 143/74 H 84 L Nasal Cannula 2 12/09/24 04:00 12/09/24 05:55 12/09/24 04:00 12/09/24 04:00 12/09/24 05:55 12/09/24 07:00 12/09/24 07:00 FiO2 0.31 12/05/24 10:30 Laboratory Results - last 24 hr 12/09/24 05:27: WBC 12.5 H D, RBC 3.00 L, Hgb 8.7 L, Hct 27.7 L, MCV 92.3, MCH 29.0, MCHC 31.4 L, RDW 13.6, Plt Count 292 D, MPV 9.1, Neut % (Auto) 74.6, Lymph % (Auto) 9.7 L, [place] % (Auto) 7.5, Eos % (Auto) 3.8, Baso % (Auto) 0.3, Neut # (Auto) 9.3 H, Lymph # (Auto) 1.2, [place] # (Auto) 0.9, Eos # (Auto) 0.5 H, Baso # (Auto) 0.0, Total Counted 100, Neutrophils % (Manual) 85 H, Lymphocytes % (Manual) 11, Monocytes % (Manual) 1 L, Eosinophils % (Manual) 3, Platelet Estimate Normal, RBC Morphology Normal, Sodium 132 L, Potassium 3.3 L, Chloride 95 L, Carbon Dioxide 33 H, Anion Gap 7.3, BUN 3 L, Creatinine 0.70 D, Estimated Creat Clear 66, Estimated GFR 83, Est GFR ( Amer) 101 D, Glucose 82, Calcium 8.7, Magnesium 1.7 D Temp Pulse Resp BP Pulse Ox O2 Del Method O2 Flow Rate 99.2 F 97 H 19 135/71 91 L Mechanical Ventilation 30 12/05/24 06:45 12/05/24 08:15 12/05/24 08:29 12/05/24 08:15 12/05/24 08:15 12/05/24 08:00 12/05/24 06:30 FiO2 0.31 12/05/24 08:00 Laboratory Results - last 24 hr 12/04/24 14:21: POC Glucose 94 12/04/24 14:23: Specimen Source Left radial, O2 % 40%, ABG pH 7.50 H, ABG pCO2 28.1 L, ABG pO2 107.4 H, ABG HCO3 21.4 L, ABG Total CO2 22.2 L, ABG O2 Saturation 99, ABG Base Excess -1.8, [place] Test Acceptable, PEEP 5 12/04/24 19:34: POC Glucose 76 12/04/24 20:48: Vancomycin Trough 10.5 H 12/05/24 01:10: Vancomycin Peak 21.4 12/05/24 01:54: POC Glucose 70 12/05/24 05:31: WBC 7.7 D, RBC 2.62 L, Hgb 8.0 L D, Hct 24.9 L, MCV 95.0, MCH 30.5, MCHC 32.1, RDW 14.3, Plt Count 188, MPV 9.9, Neut % (Auto) 77.1, Lymph % (Auto) 10.8, [place] % (Auto) 5.5, Eos % (Auto) 5.9, Baso % (Auto) 0.3, Neut # (Auto) 5.9, Lymph # (Auto) 0.8, [place] # (Auto) 0.4, Eos # (Auto) 0.5 H, Baso # (Auto) 0.0, Sodium 134 L, Potassium 3.3 L, Chloride 109 H, Carbon Dioxide 22, Anion Gap 6.3, BUN 11 D, Creatinine 0.60 D, Estimated Creat Clear 67, Estimated GFR 99, Est GFR ( Amer) 120 D, Glucose 68 L D, Calcium 8.9 12/05/24 07:52: POC Glucose 78 12/05/24 09:08: Specimen Source Right radial, O2 % 30, ABG pH 7.48 H, ABG pCO2 22.8 L, ABG pO2 73.8 L, ABG HCO3 16.7 L, ABG Total CO2 17.4 L, ABG O2 Saturation 94, ABG Base Excess -6.7 L, [place] Test Acceptable, ABG Lactate 0.5, PEEP 5 I & O for Labs for Last 24 Hours: Intake & Output 12/06/24 12/07/24 12/08/24 12/09/24 23:59 23:59 23:59 23:59 Intake Total 50 / 50 1996 1569 / 1937 838 / 838 Output Total 4540 / 4840 2140 / 2140 3150 / 3400 250 / 250 Balance -4490 / -4790 -143 / -143 -1581 / -1463 588 / 588 Weight 185 lb 14.4 oz 168 lb 11.2 oz 170 lb 15.143 oz Intake & Output 12/02/24 12/03/24 12/04/24 12/05/24 23:59 23:59 23:59 23:59 Intake Total 2551.252 / 3651.252 4878.709 / 4878.709 4935.421 / 4935.421 68.792 / 68.792 Output Total 650 / 1195 3740 / 3740 2955 / 2955 675 / 675 Balance 1901.252 / 2456.252 1138.709 / 9671.177 2671.421 / 1980.421 -606.208 / - 606.208 Weight 163 lb 9 oz 164 lb 3.91 oz 172 lb 9.6 oz 176 lb 1.6 oz Microbiology Reports for the Last 24 Hours: Microbiology 12/04/24 09:10 Blood Blood Culture - Final NO GROWTH AFTER 5 DAYS 12/04/24 08:55 Blood Blood Culture - Final NO GROWTH AFTER 5 DAYS Microbiology 12/04/24 09:10 Blood Blood Culture - Preliminary NO GROWTH AFTER 24 HOURS 12/04/24 08:55 Blood Blood Culture - Preliminary NO GROWTH AFTER 24 HOURS 12/02/24 19:25 Buttock CRE Surveillance Culture - Final Negative 12/02/24 19:03 Nose MRSA Culture - Final Negative 12/02/24 20:17 Sputum - Endotracheal Tube Aspirate Gram Stain - Final 12/02/24 20:17 Sputum - Endotracheal Tube Aspirate Sputum Culture - Final No growth. 12/02/24 19:28 Urine,Clean Catch Urine Culture - Final NO GROWTH AFTER 48 HOURS Constitutional: Present moderate distress Comment:: Intubated and Sedated Head: Present normocephalic and atraumatic Neck: Present normal inspection and trachea midline Respiratory: Present respiratory distress and rhonchi; Absent prolonged expiratory phase or diminished air movement Cardiac: Present S1/S2 and Tachycardia GI: Present soft; Absent distention or tenderness Skin: Present intact; Absent cyanosis Neuro: Present alert, awake and oriented x 3 Extremities: Present normal inspection; Absent clubbing or cyanosis Psychiatric: Present normal affect Assessment and Plan *Assessment and plan (1) Acute respiratory failure with hypoxia: Status: Acute Category: Medical Code(s): J96.01 - Acute respiratory failure with hypoxia (2) Pleural effusion on right: Status: Acute Category: Medical Code(s): J90 - Pleural effusion, not elsewhere classified Plan Ms. Vega is a 69-year-old female presented the ER with acute abdominal pain status post exploratory laparotomy found to have large anterior perforation near pylorus status post repair remain intubated postsurgery for airway support. Surgery has been following. Receiving vancomycin Zosyn and fluconazole since admission. No significant evidence of leukocytosis. Afebrile. Hemodynamically unstable needing pressors. Blood cultures no growth so far. Tracheal aspirate no growth. Chest x-ray from intubation and subsequent chest x-rays no acute pulmonary infiltrates. CTA chest with no evidence of pulmonary embolism, no dense consolidative/airspace changes. Right lower lobe likely atelectasis. Examination tolerating SBT well. Alert, awake. Following commands. ABG Post SBT 7.48, 22.8 and a PO2 of 73 and 8 on 50% FiO2 and PS of 5 Interval update: Received 40 mg IV Lasix yesterday. Net negative urine output. Renal function stable. Clinically remains including hypokalemia. Slight worsening leukocytosis. Improving oxygen requirements, weaned to 1 L nasal cannula this morning Plan: Follow with lower extremity venous Doppler Continue oxygen supplementation to maintain O2 saturation goal of 90% and above. Weaned to 1 L nasal cannula this morning. Incentive spirometry Volume optimization as per primary team No need for antibiotics from pulmonary standpoint. DuoNebs every 6 hours on a scheduled basis. Continue oxygen supplementation on as-needed basis to maintain O2 saturation below 90% and above # Thank you for involving pulmonary in this patient care. Will continue to follow.
[2024-12-09] MEDS: SIMETHICONE 80MG CHEWABLE TABLET 160 MG PO (12:45)
--- NOTE | 2024-12-09 13:08 | P.PN_ITS ---
Subjective *Date: 12/09/24 *Time: 13:08 Interval history: Patient has done well today, insurance has approved short term rehab. Medical Exam Vital signs and Labs for Last 24 Hours: Vital Signs Temp Pulse Pulse Resp BP Pulse Ox O2 Del Method 12/09/24 11:16 73 12/09/24 11:16 76 12/09/24 11:16 94 L Nasal Cannula 12/09/24 08:00 98.2 F 95 H 16 131/68 96 Room Air 12/09/24 07:00 Nasal Cannula 12/09/24 05:55 87 12/09/24 05:55 89 12/09/24 05:55 84 L Room Air 12/09/24 05:00 Room Air 12/09/24 04:00 98.4 F 82 14 143/74 H 91 L Room Air 12/09/24 03:00 Room Air 12/09/24 01:00 Room Air 12/09/24 00:00 98.4 F 83 15 126/67 91 L Room Air 12/08/24 23:40 90 12/08/24 23:40 92 H 12/08/24 23:00 Room Air 12/08/24 21:00 Room Air 12/08/24 20:00 Room Air 12/08/24 20:00 97.9 F 100 H 16 140/71 92 L Room Air 12/08/24 18:40 Room Air 12/08/24 18:22 98 H 12/08/24 18:22 97 H 12/08/24 17:00 Room Air 12/08/24 15:51 97.6 F 98 H 16 118/70 94 L Nasal Cannula 12/08/24 15:00 Room Air O2 Flow Rate 12/09/24 11:16 12/09/24 11:16 12/09/24 11:16 1 12/09/24 08:00 12/09/24 07:00 2 12/09/24 05:55 12/09/24 05:55 12/09/24 05:55 12/09/24 05:00 12/09/24 04:00 12/09/24 03:00 12/09/24 01:00 12/09/24 00:00 12/08/24 23:40 12/08/24 23:40 12/08/24 23:00 12/08/24 21:00 12/08/24 20:00 12/08/24 20:00 12/08/24 18:40 12/08/24 18:22 12/08/24 18:22 12/08/24 17:00 12/08/24 15:51 1 12/08/24 15:00 Intake and Output 12/08/24 12/09/24 12/09/24 23:59 07:59 15:59 Intake Total 300 / 1937 368 / 838 470 / 838 Output Total 250 / 3400 250 / 250 Balance 50 / -1463 118 / 588 470 / 588 Intake: Intake, Oral Amount 300 / 1098 218 / 688 470 / 688 Infusion Intake 150 / 150 Fluconazole in NaCl,Iso-Osm 200 100 / 100 mg In 100 ml @ 200 mls/hr IV Q24H [facility] Rx#:[id number] Pipercillin/Tazo 3.375 gm In 0. 50 / 50 9 % Sodium Chloride 50 ml @ 100 mls/hr IV Q6H [facility] Rx#:[id number] Output: Output, Urine Amount 250 / 3400 250 / 250 Other: Number of Unmeasured Voids 1 1 Number of Bowel Movements 2 1 Weight 170 lb 15.143 oz Patient Weight 12/09/24 23:59 Weight 170 lb 15.143 oz Laboratory Results - last 24 hr 12/09/24 05:27: WBC 12.5 H D, RBC 3.00 L, Hgb 8.7 L, Hct 27.7 L, MCV 92.3, MCH 29.0, MCHC 31.4 L, RDW 13.6, Plt Count 292 D, MPV 9.1, Neut % (Auto) 74.6, Lymph % (Auto) 9.7 L, [place] % (Auto) 7.5, Eos % (Auto) 3.8, Baso % (Auto) 0.3, Neut # (Auto) 9.3 H, Lymph # (Auto) 1.2, [place] # (Auto) 0.9, Eos # (Auto) 0.5 H, Baso # (Auto) 0.0, Total Counted 100, Neutrophils % (Manual) 85 H, Lymphocytes % (Manual) 11, Monocytes % (Manual) 1 L, Eosinophils % (Manual) 3, Platelet Estimate Normal, RBC Morphology Normal, Sodium 132 L, Potassium 3.3 L, Chloride 95 L, Carbon Dioxide 33 H, Anion Gap 7.3, BUN 3 L, Creatinine 0.70 D, Estimated Creat Clear 66, Estimated GFR 83, Est GFR ( Amer) 101 D, Glucose 82, Calcium 8.7, Magnesium 1.7 D I & O for Labs for Last 24 Hours: Intake & Output 12/06/24 12/07/24 12/08/24 12/09/24 23:59 23:59 23:59 23:59 Intake Total 50 / 50 1996 1569 / 1937 838 / 838 Output Total 4540 / 4840 2140 / 2140 3150 / 3400 250 / 250 Balance -4490 / -4790 -143 / -143 -1581 / -1463 588 / 588 Weight 185 lb 14.4 oz 168 lb 11.2 oz 170 lb 15.143 oz Microbiology Reports for the Last 24 Hours: Microbiology 12/04/24 09:10 Blood Blood Culture - Final NO GROWTH AFTER 5 DAYS 12/04/24 08:55 Blood Blood Culture - Final NO GROWTH AFTER 5 DAYS Constitutional: Present no acute distress Comment:: conversant Assessment and Plan *Assessment and plan (1) Perforated bowel: Status: Acute Category: Medical Code(s): K63.1 - Perforation of intestine (nontraumatic) (2) Peptic ulcer disease: Status: Acute Category: Medical Code(s): K27.9 - Peptic ulcer, site unspecified, unspecified as acute or chronic, without hemorrhage or perforation (3) Debility: Status: Acute Category: Medical Code(s): R53.81 - Other malaise (4) Type 2 diabetes mellitus: Status: Acute Category: Medical Code(s): E11.9 - Type 2 diabetes mellitus without complications (5) Iron deficiency anemia: Status: Acute Category: Medical Code(s): D50.9 - Iron deficiency anemia, unspecified (6) Asthma: Status: Acute Category: Medical Code(s): J45.909 - Unspecified asthma, uncomplicated (7) Sepsis: Status: Acute Category: Medical Code(s): A41.9 - Sepsis, unspecified organism (8) Hypotension: Status: Acute Category: Medical Code(s): I95.9 - Hypotension, unspecified (9) Tachycardia: Status: Acute Category: Medical Code(s): R00.0 - Tachycardia, unspecified (10) Elevated lactic acid level: Status: Acute Category: Medical Code(s): R79.89 - Other specified abnormal findings of blood chemistry (11) Tachypnea: Status: Acute Category: Medical Code(s): R06.82 - Tachypnea, not elsewhere classified (12) Anemia: Status: Acute Category: Medical Code(s): D64.9 - Anemia, unspecified (13) Respirator weaning: Status: Acute Category: Medical Code(s): Z99.11 - Dependence on respirator [ventilator] status (14) Implantable intrathecal infusion pump present: Status: Acute Category: Medical Code(s): Z96.89 - Presence of other specified functional implants (15) Hypokalemia: Status: Acute Category: Medical Code(s): E87.6 - Hypokalemia Plan OK for discharge to [place] today. See orders.
--- NOTE | 2024-12-09 13:23 | EXP.SURG.PN ---
Subjective Narrative: Doing well. Tolerating a diet. Exam Data for Last 24 hours Vital signs and Labs for Last 24 Hours: Temp Pulse Resp BP Pulse Ox O2 Del Method O2 Flow Rate 98.2 F 73 16 131/68 94 L Nasal Cannula 1 12/09/24 08:00 12/09/24 11:16 12/09/24 08:00 12/09/24 08:00 12/09/24 11:16 12/09/24 11:16 12/09/24 11:16 FiO2 0.31 12/05/24 10:30 Laboratory Results - last 24 hr 12/09/24 05:27: WBC 12.5 H D, RBC 3.00 L, Hgb 8.7 L, Hct 27.7 L, MCV 92.3, MCH 29.0, MCHC 31.4 L, RDW 13.6, Plt Count 292 D, MPV 9.1, Neut % (Auto) 74.6, Lymph % (Auto) 9.7 L, [place] % (Auto) 7.5, Eos % (Auto) 3.8, Baso % (Auto) 0.3, Neut # (Auto) 9.3 H, Lymph # (Auto) 1.2, [place] # (Auto) 0.9, Eos # (Auto) 0.5 H, Baso # (Auto) 0.0, Total Counted 100, Neutrophils % (Manual) 85 H, Lymphocytes % (Manual) 11, Monocytes % (Manual) 1 L, Eosinophils % (Manual) 3, Platelet Estimate Normal, RBC Morphology Normal, Sodium 132 L, Potassium 3.3 L, Chloride 95 L, Carbon Dioxide 33 H, Anion Gap 7.3, BUN 3 L, Creatinine 0.70 D, Estimated Creat Clear 66, Estimated GFR 83, Est GFR ( Amer) 101 D, Glucose 82, Calcium 8.7, Magnesium 1.7 D I & O for Last 24 hours: Intake & Output 12/07/24 12/08/24 12/09/24 12/10/24 11:59 11:59 11:59 11:59 Intake Total 2966 / 2966 1438 / 1438 Output Total 5615 / 5615 2485 / 2485 1800 / 1800 Balance -5615 / -5615 481 / 481 -362 / -362 Weight 168 lb 11.2 oz 170 lb 15.143 oz Microbiology Reports for the Last 24 Hours: Microbiology 12/04/24 09:10 Blood Blood Culture - Final NO GROWTH AFTER 5 DAYS 12/04/24 08:55 Blood Blood Culture - Final NO GROWTH AFTER 5 DAYS *Routine Abdominal Exam Abdominal: Present soft Comments: Incision clean and intact. Progress Note: A&P Assessment and plan (1) Perforated bowel: Status: Acute (2) Peptic ulcer disease: Status: Acute (3) Debility: Status: Acute (4) Type 2 diabetes mellitus: Status: Acute (5) Iron deficiency anemia: Status: Acute (6) Asthma: Status: Acute (7) Sepsis: Status: Acute (8) Hypotension: Status: Acute (9) Tachycardia: Status: Acute (10) Elevated lactic acid level: Status: Acute (11) Tachypnea: Status: Acute (12) Anemia: Status: Acute (13) Respirator weaning: Status: Acute (14) Implantable intrathecal infusion pump present: Status: Acute (15) Hypokalemia: Status: Acute Assessment and Plan Assessment and Plan for All Diagnoses:: Patient being discharged to short-term rehab today. Continue proton pump inhibitors.
--- NOTE | 2024-12-09 13:48 | EXP.DC.SUM ---
General Admission date:: 12/02/24 Discharge date: 12/09/24 HPI HPI HPI: Patient is a 69-year-old significantly chronically debilitated essentially nonambulatory female from [facility] with history of osteoarthritis and degenerative disc disease. She is on diclofenac, meloxicam, Lyrica, tramadol, and hydromorphone via intrathecal pain pump. She had acute onset of abdominal pain with associated nausea earlier today on 12/02/2024. She was brought to the emergency department via EMS at which time she was found to have guarding in the epigastrium. Laboratory evaluation significant for elevated C-reactive protein of 19, lactate 2.3, white blood cell count 4700, lipase 858. She underwent CT scan which revealed minimal pneumoperitoneum with thickening of the distal stomach and duodenal bulb. She did have significant distention of the gallbladder with mild biliary ductal dilatation but no gallstones. Surgical consultation was obtained. Hospital Course Hospital Course Hospital Course: The patient was admitted and her CT scan showed intra-abdominal fluid with stranding around the antrum and duodenum and some pneumoperitoneum above the liver. Dr. Contreras was consulted and felt this was concerning for a perforated ulcer. He took her for an emergent exploratory laparotomy with a Aris patch repair. The patient was on a ventilator postsurgery and was also on a Levophed drip for hypotension. She was continued on Zosyn, fluconazole, and a PPI. She was able to be weaned off of the Levophed and was extubated. She did well on nasal oxygen and had an upper GI to make sure there was no evidence of obstruction or leak. This came back normal and her NG tube was removed and she was started on liquids. She did have some crackling in her lungs and was given a dose of Lasix. Incentive spirometry was ordered. She was able to tolerate liquids and was advanced to a full liquid diet. Her PABLITO drain was removed and she began having bowel movements. Her magnesium did have to be replaced. Once the morphine was discontinued, the tramadol was not controlling her pain and she was switched to [place]. She was able to be weaned to 1 L nasal cannula. Care management was able to get a bed for her at [facility] for continued rehab and she was stable to be discharged. Exam Data for Last 24 hours Vital signs and Labs for Last 24 Hours: Temp Pulse Resp BP Pulse Ox O2 Del Method O2 Flow Rate 98.2 F 73 16 131/68 94 L Nasal Cannula 1 12/09/24 08:00 12/09/24 11:16 12/09/24 08:00 12/09/24 08:00 12/09/24 11:16 12/09/24 11:16 12/09/24 11:16 FiO2 0.31 12/05/24 10:30 Laboratory Results - last 24 hr 12/09/24 05:27: WBC 12.5 H D, RBC 3.00 L, Hgb 8.7 L, Hct 27.7 L, MCV 92.3, MCH 29.0, MCHC 31.4 L, RDW 13.6, Plt Count 292 D, MPV 9.1, Neut % (Auto) 74.6, Lymph % (Auto) 9.7 L, Knott % (Auto) 7.5, Eos % (Auto) 3.8, Baso % (Auto) 0.3, Neut # (Auto) 9.3 H, Lymph # (Auto) 1.2, Knott # (Auto) 0.9, Eos # (Auto) 0.5 H, Baso # (Auto) 0.0, Total Counted 100, Neutrophils % (Manual) 85 H, Lymphocytes % (Manual) 11, Monocytes % (Manual) 1 L, Eosinophils % (Manual) 3, Platelet Estimate Normal, RBC Morphology Normal, Sodium 132 L, Potassium 3.3 L, Chloride 95 L, Carbon Dioxide 33 H, Anion Gap 7.3, BUN 3 L, Creatinine 0.70 D, Estimated Creat Clear 66, Estimated GFR 83, Est GFR ( Amer) 101 D, Glucose 82, Calcium 8.7, Magnesium 1.7 D I & O for Last 24 hours: Intake & Output 12/07/24 12/08/24 12/09/24 12/10/24 11:59 11:59 11:59 11:59 Intake Total 2966 / 2966 1438 / 1438 Output Total 5615 / 5615 2485 / 2485 1800 / 1800 Balance -5615 / -5615 481 / 481 -362 / -362 Weight 168 lb 11.2 oz 170 lb 15.143 oz Microbiology Reports for the Last 24 Hours: Microbiology 12/04/24 09:10 Blood Blood Culture - Final NO GROWTH AFTER 5 DAYS 12/04/24 08:55 Blood Blood Culture - Final NO GROWTH AFTER 5 DAYS Narrative: Constitutional Constitutional: moderate distress and chronically ill appearing *Routine HEENT Exam Head: Present normocephalic Eye: Present EOMI ENT: Present mucous membranes dry *Routine Respiratory Exam Respiratory: Present decreased breath sounds *Routine Cardiovascular Exam Cardiovascular: Present RRR and tachycardia *Routine Abdominal Exam Abdominal: Present tenderness, distended, rebound and guarding *Routine Rectal Exam Rectal:: deferred *Routine Genitalia Exam Genitalia:: deferred Results Data Completed and Pending Labs on day of discharge: Labs from last 24 hours 12/09/24 05:27 WBC 12.5 H D RBC 3.00 L Hgb 8.7 L Hct 27.7 L MCV 92.3 MCH 29.0 MCHC 31.4 L RDW 13.6 Plt Count 292 D MPV 9.1 Neut % (Auto) 74.6 Lymph % (Auto) 9.7 L Knott % (Auto) 7.5 Eos % (Auto) 3.8 Baso % (Auto) 0.3 Neut # (Auto) 9.3 H Lymph # (Auto) 1.2 Knott # (Auto) 0.9 Eos # (Auto) 0.5 H Baso # (Auto) 0.0 Total Counted 100 Neutrophils % (Manual) 85 H Lymphocytes % (Manual) 11 Monocytes % (Manual) 1 L Eosinophils % (Manual) 3 Platelet Estimate Normal RBC Morphology Normal Sodium 132 L Potassium 3.3 L Chloride 95 L Carbon Dioxide 33 H Anion Gap 7.3 BUN 3 L Creatinine 0.70 D Estimated Creat Clear 66 Estimated GFR 83 Est GFR ( Amer) 101 D Glucose 82 Calcium 8.7 Magnesium 1.7 D DS: Diagnosis Discharge Diagnosis (1) Perforated bowel: Status: Acute Code(s): K63.1 - Perforation of intestine (nontraumatic) (2) Peptic ulcer disease: Status: Acute Code(s): K27.9 - Peptic ulcer, site unspecified, unspecified as acute or chronic, without hemorrhage or perforation (3) Debility: Status: Acute Code(s): R53.81 - Other malaise (4) Type 2 diabetes mellitus: Status: Acute Code(s): E11.9 - Type 2 diabetes mellitus without complications (5) Iron deficiency anemia: Status: Acute Code(s): D50.9 - Iron deficiency anemia, unspecified (6) Asthma: Status: Acute Code(s): J45.909 - Unspecified asthma, uncomplicated (7) Sepsis: Status: Acute Code(s): A41.9 - Sepsis, unspecified organism (8) Hypotension: Status: Acute Code(s): I95.9 - Hypotension, unspecified (9) Tachycardia: Status: Acute Code(s): R00.0 - Tachycardia, unspecified (10) Elevated lactic acid level: Status: Acute Code(s): R79.89 - Other specified abnormal findings of blood chemistry (11) Tachypnea: Status: Acute Code(s): R06.82 - Tachypnea, not elsewhere classified (12) Anemia: Status: Acute Code(s): D64.9 - Anemia, unspecified (13) Respirator weaning: Status: Acute Code(s): Z99.11 - Dependence on respirator [ventilator] status (14) Implantable intrathecal infusion pump present: Status: Acute Code(s): Z96.89 - Presence of other specified functional implants (15) Hypokalemia: Status: Acute Code(s): E87.6 - Hypokalemia Meds Home Medications and Allergies Home Medications ?Medication ?Instructions ?Recorded ?Confirmed ?Type duloxetine 60 mg capsule,delayed 120 mg PO DAILY 09/09/17 12/03/24 History release hydromorphone (PF) 1 mg/mL in 0.9% 0.5 mg intrathecal CONT CHRONIC 12/26/21 12/03/24 History sodium chloride intravenous syringe PAIN ropinirole 2 mg tablet 2 mg PO HSP PRN restless leg 03/20/22 12/03/24 History syndrome ondansetron 4 mg disintegrating 4 mg PO Q8H PRN nausea and 12/13/22 12/03/24 Rx tablet vomiting 4 days #12 tabs pregabalin 100 mg capsule (Lyrica) 100 mg PO QID Pain #120 caps 10/17/24 12/03/24 Rx ferrous sulfate 325 mg (65 mg 325 mg PO DAILY 12/03/24 12/03/24 History iron) tablet (FeroSul) magnesium oxide 400 mg (241.3 mg 400 mg PO BID 12/03/24 12/03/24 History magnesium) tablet acetaminophen 325 mg tablet 325 mg PO Q4H PRN pain #1 tab 12/09/24 Rx (Tylenol) hydrocodone 5 mg-acetaminophen 325 1 tab PO Q4HP PRN Moderate To 12/09/24 Rx mg tablet Severe Pain (4-10) #45 tabs pantoprazole 40 mg tablet,delayed 40 mg PO HS #1 tab 12/09/24 Rx release New Prescriptions to Start Prescriptions: acetaminophen [Tylenol] George Jacob hydrocodone-acetaminophen George Jacob pantoprazole George Jacob Allergies Allergy/AdvReac Type Severity Reaction Status Date / Time Sulfa (Sulfonamide Allergy Unknown NA-NAUSEA/V Verified 08/26/24 14:06 Antibiotics) (SULFA OMITING (SULFONAMIDE ANTIBIOTICS)) Discharge Plan Disposition Patient Disposition: [facility] Condition: Fair Discharge Order Discharge Orders: Discharge Order (Routine); Ordered 12/09/24 Ordered By: George Jacob Follow up Plan Follow up with: George Jacob MD [Staff Physician, Medical] - Enter time for follow up Referral Note: At [facility] Gerard Contreras MD [Staff Physician, General Surgery] - 2 weeks Prescriptions/Medication Reconciliation: New hydrocodone-acetaminophen 5-325 mg Tablet 1 tab PO Q4HP PRN (Reason: Moderate To Severe Pain (4-10)) Qty: 45 0RF pantoprazole 40 mg Tablet,Delayed Release (Dr/Ec) 40 mg PO HS Qty: 1 0RF acetaminophen [Tylenol] 325 mg tablet 325 mg PO Q4H PRN (Reason: pain) Qty: 1 0RF Continued duloxetine 60 MG capsule,delayed release(DR/EC) 120 mg PO DAILY hydromorphone (PF)-0.9 % NaCl 1 MG/ML syringe 0.5 mg IT CONT Rx Instructions: MEDICATION DELIVERED VIA INTRATHECAL PAIN PUMP. TOTAL VOLUME OF PUMP IS 20ML ondansetron 4 mg tablet,disintegrating 4 mg PO Q8H PRN (Reason: nausea and vomiting) 4 Days Qty: 12 0RF pregabalin [Lyrica] 100 mg capsule 100 mg PO QID Qty: 120 2RF ropinirole 2 mg tablet 2 mg PO HSP PRN (Reason: restless leg syndrome) magnesium oxide 400 mg (241.3 mg magnesium) tablet 400 mg PO BID Patient Comments: TAKE ONE TABLET BY MOUTH TWICE DAILY ferrous sulfate [FeroSul] 325 mg (65 mg iron) tablet 325 mg PO DAILY Patient Comments: TAKE ONE TABLET BY MOUTH EVERY DAY Discontinued meloxicam 15 mg tablet 15 mg PO DAILY Patient Comments: TAKE ONE TABLET BY MOUTH EVERY DAY --TAKE WITH FOOD-- tramadol 50 mg tablet 50 mg PO BID Qty: 60 2RF ascorbic acid (vitamin C) [Vitamin C] 500 mg tablet 500 mg PO QID furosemide 20 mg tablet 20 mg PO DAILY Patient Comments: TAKE ONE TABLET BY MOUTH EVERY DAY pregabalin 100 mg capsule 100 mg PO QIDP PRN (Reason: neuropathy) Patient Comments: TAKE ONE CAPSULE BY MOUTH FOUR TIMES DAILY FOR PAIN MAY CAUSE DROWSINESS Problem Reconciliation Problems Reviewed?: Yes Patient Discharge Instructions ACTIVITY: Continue current activity DIET: continue same diet Additional Instructions: Patient needs continuous oxygen at 1 L/min, to keep sats above 89%. Please check CBC and BMP in 1 week. Patient Instructions: Intubation and Mechanical Ventilation, DI for Hypokalemia, DI for Acute Abdominal Pain, DI for Surgical Site Infection, DI for Sepsis -- Adult, DI for Respiratory Failure, Catheter-Associated Urinary Tract Infection, Stop Light Infection Print Language: Mongolian Providers Primary Care Provider: Anni Candelaria Admit Provider: George Jacob Attending Provider: George Jacob
[2024-12-09] MEDS: PANTOPRAZOLE 40MG TABLET 40 MG PO (21:04)
--- NOTE | 2024-12-09 23:08 | PC.NURSE ---
EMS called this nurse at 1999 and informed this nurse that they were on the way to get the pt. IV removed at this time.
--- NOTE | 2024-12-09 23:10 | PC.NURSE ---
Pt informed of 0100 IV antibiotic and its importance. Pt refused another initiation of IV Access and IV antibiotic. POC ongoing.
[2024-12-10] VITALS: BP 136/66; PULSE 93; RESP 14; TEMP 37.1; O2SAT 93
--- NOTE | 2024-12-10 00:20 | PC.NURSE ---
EMS came to get Pt at 0020 and Pt refused to leave. Pt stated, I've made an executive decision that I will not be leaving my bad at twenty passed midnight. Pt stated to EMS, I wasn't a priority all day so why am I now? Pt educated on importance of transfer and that EMS transfers unstable patients first. MD has been paged, awaiting call back to notify. supervisor records change & Charge Nurse notified.
[2024-12-10] MEDS: IPRATROPIUM/ALBUTEROL 3 ML NEB IH ×2 (00:21→06:09)
--- NOTE | 2024-12-10 01:57 | PC.NURSE ---
MD controls operator molded goods (Marissa) returned my call at 0150. aware of situation. No new orders at this time.
[2024-12-10] MEDS: HYDROCODONE/APAP 5/325 MG TABLET 1 TAB PO ×2 (03:00→08:54)
[2024-12-10 04:00] VITALS: BP 135/72; PULSE 93; RESP 14; TEMP 36.5; O2SAT 94
--- NOTE | 2024-12-10 04:36 | PC.NURSE ---
Pt is A&Ox4. Pt has been on RA. Pt bowel sounds are active. Pt Pt lung sounds diminished. Pt doesn't have IV Access due to refusal. Pt has missed doses of ABX due to this. Pt did not discharge today due to refusal of EMS ride when available. Pt has been medicated per JUL. Pt not had any acute changes. Pt has not voiced any further concerns. pt resting w/ call light in reach. POC on going.
[2024-12-10 06:10] VITALS: PULSE 85; PULSE 88; O2SAT 88
[2024-12-10 08:00] VITALS: BP 129/87; PULSE 89; RESP 16; TEMP 36.8; O2SAT 95
--- NOTE | 2024-12-10 08:31 | PC.NURSE ---
Addendum entered by Elmer Chang RN 12/10/24 08:46: DR AU UPDATED ON SITUATION Original Note: EMS MADE AWARE OF TRANSFER TO [facility]. 2 HR ETA GIVEN PER EMS.
[2024-12-10] MEDS: ONDANSETRON 4MG ODT 4 MG SL (09:22)
--- NOTE | 2024-12-10 10:03 | P.PN_ITS ---
Subjective *Date: 12/10/24 *Time: 10:03 Interval history: Transfer was not accomplished last night due to ambulance service running late. She is stable this morning and transfer to [place] is planned this morning. She is stable and comfortable and surrounded by family. Medical Exam Vital signs and Labs for Last 24 Hours: Vital Signs Temp Pulse Pulse Resp BP Pulse Ox O2 Del Method 12/10/24 06:53 Nasal Cannula 12/10/24 06:10 88 12/10/24 06:10 85 12/10/24 06:10 88 L Room Air 12/10/24 05:00 Room Air 12/10/24 04:00 97.7 F 93 H 14 135/72 94 L Room Air 12/10/24 03:00 Room Air 12/10/24 01:00 Room Air 12/10/24 00:23 Room Air 12/10/24 00:00 98.7 F 93 H 14 136/66 93 L Room Air 12/09/24 23:00 Room Air 12/09/24 21:00 Room Air 12/09/24 20:00 Room Air 12/09/24 20:00 98.0 F 55 L 14 120/60 90 L Room Air 12/09/24 18:49 85 12/09/24 18:49 88 12/09/24 18:42 Nasal Cannula 12/09/24 17:00 Nasal Cannula 12/09/24 16:00 Room Air 12/09/24 16:00 98.3 F 86 18 134/75 97 Room Air 12/09/24 15:00 Nasal Cannula 12/09/24 13:00 Nasal Cannula 12/09/24 12:00 97.9 F 90 16 129/83 96 Room Air 12/09/24 11:16 73 12/09/24 11:16 76 12/09/24 11:16 94 L Nasal Cannula 12/09/24 11:00 Nasal Cannula O2 Flow Rate 12/10/24 06:53 1 12/10/24 06:10 12/10/24 06:10 12/10/24 06:10 12/10/24 05:00 12/10/24 04:00 12/10/24 03:00 12/10/24 01:00 12/10/24 00:23 12/10/24 00:00 12/09/24 23:00 12/09/24 21:00 12/09/24 20:00 12/09/24 20:00 12/09/24 18:49 12/09/24 18:49 12/09/24 18:42 1 12/09/24 17:00 1 12/09/24 16:00 12/09/24 16:00 12/09/24 15:00 1 12/09/24 13:00 2 12/09/24 12:00 12/09/24 11:16 12/09/24 11:16 12/09/24 11:16 1 12/09/24 11:00 2 Intake and Output 12/09/24 12/10/24 12/10/24 19:59 03:59 11:59 Intake Total 240 / 240 Output Total 0 / 0 Balance 240 / 240 Intake: Intake, Oral Amount 240 / 240 Output: Output, Urine Amount 0 / 0 Other: Number of Unmeasured Voids 1 2 Number of Bowel Movements 1 2 I & O for Labs for Last 24 Hours: Intake & Output 12/07/24 12/08/24 12/09/24 12/10/24 11:59 11:59 11:59 11:59 Intake Total 2966 / 2966 1438 / 1438 240 / 240 Output Total 5615 / 5615 2485 / 2485 1800 / 1800 0 / 0 Balance -5615 / -5615 481 / 481 -362 / -362 240 / 240 Weight 168 lb 11.2 oz 170 lb 15.143 oz Microbiology Reports for the Last 24 Hours: Microbiology 12/04/24 09:10 Blood Blood Culture - Final NO GROWTH AFTER 5 DAYS 12/04/24 08:55 Blood Blood Culture - Final NO GROWTH AFTER 5 DAYS Head: Present normocephalic Neck: Present normal inspection Respiratory: Present CTA bilaterally Cardiac: Present Reg Rate and Rhythm GI: Present soft and tenderness (at incision) Rectal (female): Present deferred (female): Present deferred Extremities: Absent edema Skin: Present intact Neuro: Present alert, awake and oriented x 3 Assessment and Plan *Assessment and plan (1) Perforated bowel: Status: Acute Category: Medical Code(s): K63.1 - Perforation of intestine (nontraumatic) (2) Peptic ulcer disease: Status: Acute Category: Medical Code(s): K27.9 - Peptic ulcer, site unspecified, unspecified as acute or chronic, without hemorrhage or perforation (3) Type 2 diabetes mellitus: Status: Acute Category: Medical Code(s): E11.9 - Type 2 diabetes mellitus without complications (4) Debility: Status: Acute Category: Medical Code(s): R53.81 - Other malaise (5) Hypotension: Status: Acute Category: Medical Code(s): I95.9 - Hypotension, unspecified (6) Sepsis: Status: Acute Category: Medical Code(s): A41.9 - Sepsis, unspecified organism (7) Anemia: Status: Acute Category: Medical Code(s): D64.9 - Anemia, unspecified Plan Transfer to [place].
== END 2024-12-10 11:15 | DRG 853 ==
LOC: ER 16:25 → SDC 17:37 → ICU 18:25 → 2ND 12-07 15:54
PROVIDERS: Internal Medicine Pulmonary Disease; Surgery; Admitting Provider Family Medicine; Emergency Provider Student in an Organized Health Care Education/Training Program; PCP Physician Assistant; Visit Provider Family Medicine
PROC: 0DQ70ZZ Repair Stomach, Pylorus, Open Approach (ICD-10-PCS; CPT 49000; principal; 2024-12-02 17:00)
DX: A41.9 Sepsis, unspecified organism (principal); J96.01 Acute respiratory failure with hypoxia; K25.5 Chronic or unspecified gastric ulcer with perforation; K65.9 Peritonitis, unspecified; R65.21 Severe sepsis with septic shock; J90 Pleural effusion, not elsewhere classified; R53.81 Other malaise; E11.9 Type 2 diabetes mellitus without complications; M54.16 Radiculopathy, lumbar region; M51.369 Other intervertebral disc degeneration, lumbar region without mention of lumbar back pain or lower extremity pain; D50.9 Iron deficiency anemia, unspecified; J45.909 Unspecified asthma, uncomplicated; M25.561 Pain in right knee; M25.562 Pain in left knee; I95.9 Hypotension, unspecified; R00.0 Tachycardia, unspecified; E87.6 Hypokalemia; Z96.89 Presence of other specified functional implants; Z79.899 Other long term (current) drug therapy; Z88.2 Allergy status to sulfonamides
CPT/HCPCS: 36415; 51702; 71045; 71275; 74177; 74240; 80048; 80053; 80202; 81001; 82803; 82962; 83605; 83690; 83735; 84484; 85007; 85014; 85018; 85025; 85048; 85049; 86140; 86803; 87040; 87070; 87081; 87086; 87205; 87389; 93005; 93970; 94002; 94003; 94640; 94760; 94761; 97163; 97167; 97530; J0131; J1100; J1450; J1938; J2003; J2250; J2270; J2371; J2405; J2470; J2543; J2704; J3010; J3375; J3475; J3480; J7120; Q0162; Q9963; Q9967

== ENCOUNTER 2024-12-29 13:05 | Day surgery (SDC) | payer MEDICARE, SELFPAY ==
[2024-12-29 13:10] VITALS: BP 107/68; PULSE 111; RESP 18; O2SAT 95; BMI 27.2
--- NOTE | 2024-12-29 13:32 | EXP.PAIN.PRO ---
Procedure Date: 12/29/24 Time: 13:33 Anesthesiologist:: Mari Yeboah APRN Complications:: None Pre-procedure Diagnosis:: Degenerative disc disease of lumbar spine with lumbar radiculopathy symptoms, chronic pain syndrome Post-procedure Diagnosis:: Same Indications for Procedure:: Patient is a pleasant 69-year-old female who presents today for intrathecal refill and reprogramming. She has had a lot going on from her last appointment. Patient ended up having a bowel perforation as well as an ulcer that they believe burst causing a significant GI bleed. Patient was hospitalized and intubated here at [facility] and then has now been transferred over to [place] where she is undergoing physical therapy and rehab before getting able to go back home. She does state that she is doing much better currently and really does love over at [place]. Patient is currently managed with Dilaudid 10 mg/mL with a daily dose of 1.7010 mg/day. Patient denies any side effects but is requesting a small increase if possible. Patient was getting oral tramadol and Lyrica as well from our office however currently her medication is being done from there at [place]. Her Don has been reviewed and is appropriate. Physical Exam: General: Alert and oriented x3, no acute distress, pleasant and cooperative Lungs: Respirations even and unlabored, symmetrical chest expansion Eyes: PERRL Musculoskeletal: Flexion and extension of lumbar [spine] somewhat guarded secondary to pain, [antalgic gait noted] Neurological: Speech clear, no gross sensory deficit Procedure Details:: Informed consent was obtained and the risk and benefits of the procedure were explained to the patient. The patient had noninvasive monitoring placed including noninvasive blood pressure cuff and pulse oximeter. Patient's pump was interrogated. The area over the pump was cleansed with chlorhexidine as a cleansing solution. In sterile fashion the pump was accessed with a 22-gauge needle. Approximately 8.8 mls of the pump solution was removed and discarded appropriately. The pump was then refilled with 20 mL's of Dilaudid 10 mg/mL. The needle was withdrawn and a bandage was placed over the puncture site. The infusion rate was reprogrammed and increased 5% to Dilaudid 1.786 mg/day. The patient tolerated well with no complication. Plan and Disposition:: Patient tolerated the procedure well with no complications and was discharged neurologically intact. Patient will return to clinic on or before their next intrathecal refill date. We will see the patient back in the clinic at the next intrathecal refill. Patient has been instructed to contact the clinic with any concerns before the next appointment. Dr. Tsang has reviewed this note and agrees with this plan of care. This note was dictated using voice recognition software and make contain errors or omissions. -- It Is medically necessary for this patient to continue to have their intrathecal pump refilled at regular intervals. This patient had an intrathecal pain pump implanted after meeting criteria of chronic intractable pain for greater than 3 months and failing conservative treatments. Patient has committed and been compliant to the treatment plan and all planned follow up care. Since implantation of the intrathecal pain pump, the patient has had decreased pain and been more functional. Oral medications have been reduced including intake of oral opioids. Patient continues to do well with intrathecal therapy with decrease in pain symptoms and increase in functional status. Stopping intrathecal medications can lead to life threatening withdrawal, seizures, cardiac arrest, severe pain, and possible . Pumps that are not refilled at regular intervals can be damages and cause and need for replacement. We continually titrate dose and concentration to optimize pain relief and function. We are limited in concentration for certain drugs to safely deliver medications through the pump and stay within the recommendations from the Polyanalgesic Consensus Committee Guidelines. Depending on dose and concentration these pumps may need to be refilled sooner than 3 months as we titrate. A UDS is needed to verify patient's compliance with our office pain contract. This is ordered based off specific treatments related to chronic pain with the potential to abuse certain medications.
[2024-12-29 14:29] VITALS: BP 107/68; PULSE 111; RESP 18; O2SAT 95
[2024-12-29 14:32] VITALS: BP 96/71; PULSE 111; RESP 18; O2SAT 94
--- NOTE | 2025-01-02 15:57 | EXP.PM.HP ---
History of Present Illness *Admission Date: 12/29/24 *Reason for visit:: Intrathecal refill; DDD *History of present illness: Same [facility] Disclaimer: The information contained in this section may have been updated after the patient was seen, as this information can be updated by other users. Medical History Pleural effusion on right Acute respiratory failure with hypoxia On mechanically assisted ventilation Implantable intrathecal infusion pump present Anemia Asthma Type 2 diabetes mellitus History of renal dialysis Peptic ulcer disease Arthritis Fibromyalgia History of TB (tuberculosis) Chronic pain Depression Iron deficiency anemia Cervical (neck) region somatic dysfunction Degenerated intervertebral disc Surgical History History of colonoscopy History of esophagogastroduodenoscopy (EGD) History of cervical spinal surgery Family History Other Cancer Coronary artery disease Diabetes Hypertension Social History Smoking Status: Never smoker second hand exposure: No alcohol intake: never substance use type: denies use current occupational status: other Travel in the last 8 weeks?: None household members: none housing: house current occupational exposures/hazards: No caffeine: Yes Other Medical History Have you received the Flu Vaccine for this season: No Have you received the Pneumonia Vaccine: Yes Review of Systems Review of Systems Review of systems:: pertinent systems reviewed and negative unless documented below Review of systems (narrative): Review of Systems: General: No recent weight changes, no fever, no sleep disturbances Respiratory: No cough, no shortness of air, no recurring pulmonary infections Cardiovascular/peripheral vascular: No chest pain, no palpitations, no edema, no shortness of breath Gastrointestinal: No new onset incontinence, normal bowel movements reported Genitourinary: No new onset incontinence Musculoskeletal: Chronic back pain Psychiatric: [Normal mood/affect] Neurological: [Denies weakness in extremities], [denies balance issues] Meds Home Medications and Allergies Home Medications ?Medication ?Instructions ?Recorded ?Confirmed ?Type duloxetine 60 mg capsule,delayed 120 mg PO DAILY 09/09/17 12/29/24 History release hydromorphone (PF) 1 mg/mL in 0.9% 0.5 mg intrathecal CONT CHRONIC 12/26/21 12/29/24 History sodium chloride intravenous syringe PAIN ropinirole 2 mg tablet 2 mg PO HSP PRN restless leg 03/20/22 12/29/24 History syndrome ondansetron 4 mg disintegrating 4 mg PO Q8H PRN nausea and 12/13/22 12/29/24 Rx tablet vomiting 4 days #12 tabs ferrous sulfate 325 mg (65 mg 325 mg PO DAILY 12/03/24 12/29/24 History iron) tablet (FeroSul) magnesium oxide 400 mg (241.3 mg 400 mg PO BID 12/03/24 12/29/24 History magnesium) tablet acetaminophen 325 mg tablet 325 mg PO Q4H PRN pain #1 tab 12/09/24 12/29/24 Rx (Tylenol) pantoprazole 40 mg tablet,delayed 40 mg PO HS #1 tab 12/09/24 12/29/24 Rx release pregabalin 100 mg capsule (Lyrica) 100 mg PO QIDP PRN neuropathic 12/09/24 12/29/24 Rx pain #120 caps New Prescriptions to Start Prescriptions: Allergies Allergy/AdvReac Type Severity Reaction Status Date / Time Sulfa (Sulfonamide Allergy Unknown NA-NAUSEA/V Verified 12/29/24 14:29 Antibiotics) (SULFA OMITING (SULFONAMIDE ANTIBIOTICS)) Exam Data for Last 24 hours Vital signs and Labs for Last 24 Hours: Pulse Resp BP Pulse Ox O2 Del Method 111 H 18 96/71 L 94 L Nasal Cannula 12/29/24 14:32 12/29/24 14:32 12/29/24 14:32 12/29/24 14:32 12/29/24 14:32 Constitutional Constitutional: no acute distress *Routine HEENT Exam Head: Present normocephalic and atraumatic Eye: Present PERRL ENT: Present mucous membranes moist *Routine Neck Exam Neck: Present supple *Routine Respiratory Exam Respiratory: Present CTA bilaterally *Routine Cardiovascular Exam Cardiovascular: Present RRR *Routine Abdominal Exam Abdominal: Present soft *Routine Rectal Exam Rectal:: deferred *Routine Genitalia Exam Genitalia:: deferred Routine Back/Spine/Pelvis Exam Back/Spine: Present pain with flexion *Routine Skin Exam Skin: Present intact and warm *Routine Neurological Exam Neurological: Present alert and oriented X3 Routine Psychiatric Exam Psychiatric: Present normal affect and normal thought process Assessment and Plan *Assessment and plan (1) Degenerative disc disease, lumbar: Status: Acute Category: Medical Code(s): M51.369 - Other intervertebral disc degeneration, lumbar region without mention of lumbar back pain or lower extremity pain (2) Lumbar radiculopathy: Status: Acute Category: Medical Code(s): M54.16 - Radiculopathy, lumbar region
== END 2024-12-29 13:30 | disposition home or self-care (01) ==
PROVIDERS: PCP Family Medicine; Visit Provider Nurse Practitioner Family
DX: Z45.1 Encounter for adjustment and management of infusion pump (principal); M51.16 Intervertebral disc disorders with radiculopathy, lumbar region; G89.4 Chronic pain syndrome; J45.909 Unspecified asthma, uncomplicated; D64.9 Anemia, unspecified; M79.7 Fibromyalgia; Z88.2 Allergy status to sulfonamides; Z79.899 Other long term (current) drug therapy
CPT/HCPCS: 62370

== ENCOUNTER 2025-02-03 06:12 | Day surgery (SDC) | payer MEDICARE, SELFPAY ==
[2025-01-27 13:00] VITALS: BMI 27.4
[2025-02-03 06:38] VITALS: BP 130/81; PULSE 77; RESP 16; TEMP 36.2; O2SAT 89; BMI 27.4
--- NOTE | 2025-02-03 06:43 | EXP.GEN.HP ---
HPI HPI HPI: Patient is a 69-year-old female. She underwent emergent exploratory laparotomy with repair and oversewing of perforated pyloric channel ulcer with omental vascular pedicle patch on 12/02/2024. She ultimately has done well. She is currently care home resident. Plan was for upper endoscopy to assess for ulcer healing. [facility] Disclaimer: The information contained in this section may have been updated after the patient was seen, as this information can be updated by other users. Medical History Pleural effusion on right Acute respiratory failure with hypoxia On mechanically assisted ventilation Implantable intrathecal infusion pump present History of renal dialysis Peptic ulcer disease Asthma Arthritis Anemia Fibromyalgia Type 2 diabetes mellitus History of TB (tuberculosis) Chronic pain Depression Iron deficiency anemia Cervical (neck) region somatic dysfunction Degenerated intervertebral disc Surgical History History of laparotomy History of colonoscopy History of esophagogastroduodenoscopy (EGD) History of cervical spinal surgery Family History Other Arthritis Cancer Coronary artery disease Diabetes Hypertension Social History (Updated 02/03/25 @ 06:51 by Roseanne See RN) Smoking Status: Never smoker second hand exposure: No alcohol intake: never substance use type: denies use current occupational status: retired Travel in the last 8 weeks?: None household members: none housing: house current occupational exposures/hazards: No caffeine: Yes Have you lived/traveled outside [place] in past 30 days?: No Contact w/someone who lives/traveled outside US past 30 days?: No Exposure to someone with infectious disease in past 14 days?: No Do you have a fever (greater than 100.4 F or 38 C)?: No Have you tested positive for COVID-19?: No Exposed to someone with COVID-19 in past 14 days?: No Do you have a sore throat?: No Do you have a cough?: No Do you have any weakness?: No Are you experiencing any nausea/vomitting?: No Do you have any diarrhea?: No Are you experiencing any unusual bleeding?: No Do you have any muscle aches/pain?: No Do you have any abdominal pain?: No Are you experiencing loss of taste or smell?: No Other Medical History Have you received the Flu Vaccine for this season: No Have you received the Pneumonia Vaccine: Yes Meds Home Medications and Allergies Home Medications ?Medication ?Instructions ?Recorded ?Confirmed ?Type duloxetine 60 mg capsule,delayed 120 mg PO DAILY 09/09/17 01/31/25 History release hydromorphone (PF) 1 mg/mL in 0.9% 0.5 mg intrathecal CONT CHRONIC 12/26/21 01/31/25 History sodium chloride intravenous syringe PAIN ropinirole 2 mg tablet 2 mg PO HSP PRN restless leg 03/20/22 01/31/25 History syndrome ondansetron 4 mg disintegrating 4 mg PO Q8H PRN nausea and 12/13/22 01/31/25 Rx tablet vomiting 4 days #12 tabs ferrous sulfate 325 mg (65 mg 325 mg PO DAILY 12/03/24 01/31/25 History iron) tablet (FeroSul) magnesium oxide 400 mg (241.3 mg 400 mg PO BID 12/03/24 01/31/25 History magnesium) tablet pantoprazole 40 mg tablet,delayed 40 mg PO HS #1 tab 12/09/24 01/31/25 Rx release pregabalin 100 mg capsule (Lyrica) 100 mg PO QIDP PRN neuropathic 01/20/25 01/31/25 Rx pain #120 caps tramadol 50 mg tablet 50 mg PO BID PRN pain #60 tabs 01/20/25 01/31/25 Rx New Prescriptions to Start Prescriptions: Allergies Allergy/AdvReac Type Severity Reaction Status Date / Time Sulfa (Sulfonamide Allergy Unknown NA-NAUSEA/V Verified 02/03/25 06:52 Antibiotics) (SULFA OMITING (SULFONAMIDE ANTIBIOTICS)) Exam Constitutional Constitutional: no acute distress *Routine HEENT Exam Head: Present normocephalic Eye: Present EOMI and PERRL ENT: Present mucous membranes moist *Routine Neck Exam Neck: Present supple; Absent lymphadenopathy *Routine Respiratory Exam Respiratory: Present CTA bilaterally *Routine Cardiovascular Exam Cardiovascular: Present RRR *Routine Abdominal Exam Abdominal: Present soft, normoactive bowel sounds and surgical scars; Absent tenderness *Routine Rectal Exam Rectal:: deferred *Routine Genitalia Exam Genitalia:: deferred *Routine Extremities Exam Extremities: Absent cyanosis, clubbing or edema *Routine Skin Exam Skin: Present warm; Absent rash *Routine Neurological Exam Neurological: Present alert and oriented X3 Assessment and Plan *Assessment and plan (1) Peptic ulcer with perforation: Status: Acute Category: Medical Code(s): K27.5 - Chronic or unspecified peptic ulcer, site unspecified, with perforation
[2025-02-03] MEDS: LACTATED RINGERS 1000ML 1,000 ML 50 ML IV (06:56)
--- NOTE | 2025-02-03 07:14 | EXP.ANES.CKL ---
[facility] Disclaimer: The information contained in this section may have been updated after the patient was seen, as this information can be updated by other users. Medical History Pleural effusion on right Acute respiratory failure with hypoxia On mechanically assisted ventilation Implantable intrathecal infusion pump present History of renal dialysis Peptic ulcer disease Asthma Arthritis Anemia Fibromyalgia Type 2 diabetes mellitus History of TB (tuberculosis) Chronic pain Depression Iron deficiency anemia Cervical (neck) region somatic dysfunction Degenerated intervertebral disc Surgical History History of laparotomy History of colonoscopy History of esophagogastroduodenoscopy (EGD) History of cervical spinal surgery Family History Other Arthritis Cancer Coronary artery disease Diabetes Hypertension Social History (Updated 02/03/25 @ 06:51 by Roseanne See RN) Smoking Status: Never smoker second hand exposure: No alcohol intake: never substance use type: denies use current occupational status: retired Travel in the last 8 weeks?: None household members: none housing: house current occupational exposures/hazards: No caffeine: Yes Have you lived/traveled outside [place] in past 30 days?: No Contact w/someone who lives/traveled outside US past 30 days?: No Exposure to someone with infectious disease in past 14 days?: No Do you have a fever (greater than 100.4 F or 38 C)?: No Have you tested positive for COVID-19?: No Exposed to someone with COVID-19 in past 14 days?: No Do you have a sore throat?: No Do you have a cough?: No Do you have any weakness?: No Are you experiencing any nausea/vomitting?: No Do you have any diarrhea?: No Are you experiencing any unusual bleeding?: No Do you have any muscle aches/pain?: No Do you have any abdominal pain?: No Are you experiencing loss of taste or smell?: No [facility] Anesthesia Checklist Patient Identification Patient Identification: Arm Band Structural Data Admitted From: Home Planned Operative Procedure/s: EGD Consent for Planned Operative Procedure(s) Verified: Yes Verified Documents: Surgical Consent and History and Physical NPO Status Verified Time NPO: 00:00 Additional verifications Anesthesia Reactions: No Hx Blood Transfusions: No Blood Transfusion Reaction: No Airway Assessment Mallampati Score:: Class II C-Spine Mobility Assessed: Yes TMJ Mobility Assessed: Yes Neurological Assessment Level of Consciousness: Awake, Alert and Appropriate Anesthesia Plan Anesthesia Risk discussed: Yes Anesthesia Plan: Verified ASA Class: III Anesthesia Type: MAC
--- NOTE | 2025-02-03 07:44 | P.PCN_ITS ---
Procedure: Date: 02/03/25 Patient Date of :: 1955 Procedure Performed:: Esophagogastroduodenoscopy with biopsies and extraction of duodenal foreign body Indications:: Patient is a 69-year-old female from [facility]. She had presented to the emergency department in November with peritonitis free air. She was taken emergently to the operating room at which time she was found to have a large perforation of the anterior duodenal bulb with established peritonitis. She underwent repair with omental pedicle Aris patch. She underwent a [facility] of [facility]. Plan was for follow-up EGD to assess the ulcer for healing. . Performing Provider:: Gerard Contreras MD Referring Provider:: George Jacob MD Sedation:: MAC sedation Procedure:: Patient history was obtained and appropriate physical examination was performed. Patient's medications and allergies were reviewed. Informed consent was obtained after explaining the benefits, alternatives, and risks of the procedure including, but not limited to, bleeding, perforation, missed lesions, and adverse reaction to anesthesia medications. Patient was transported to endoscopy procedure room. Patient was connected to monitoring devices. Throughout the procedure the patient's blood pressure, pulse, and oxygen saturations were monitored continuously. Patient identification and planned procedure were verified by the staff. Patient was positioned in lateral decubitus position. Olympus endoscope was inserted via the oropharynx. Esophagus was cannulated. Esophagus was somewhat patulous and tortuous consistent with esophageal dysmotility. Gastroesophageal junction was encountered at 40 cm from the incisors. Stomach was cannulated and insufflated. There was some diffuse moderate nonerosive gastropathy. Retrofl exion was performed which revealed no evidence of any appreciable hiatal hernia. Pylorus was noted. Endoscope was advanced through the pylorus which was somewhat stenotic. Within the duodenal bulb there was what appeared to initially be a large pill. This obscured much of the duodenal bulb. Endoscope was able to be advanced beyond this and distal duodenum appeared normal other than a moderate duodenal diverticulum. Endoscope was withdrawn into the duodenal bulb once again and a couple biopsies were obtained. There appeared to be stellate scar from healed ulcer. Biopsy was obtained. Please note that gastric antral mucosal biopsy was obtained as well. However visualization in the duodenal bulb was limited due to the foreign body at the location. Attempt was made to grasp this with the biopsy forceps and this was unsuccessful. There was lettering and writing on the object. Attempt was made to grasp it with Smith net which initially was unsuccessful. Attempt was made using the E suction device and it was unable to be suctioned into the E suction given its size. The 9 mm cold cutting snare was used and this was unsuccessful as the object was actually larger than the snare. The 13 mm snare was used but this was unsuccessful as well. Ultimately Smith net was reutilized and the object was able to be grasped. It was carefully withdrawn. It was somewhat difficult to withdrawal from the pylorus due to the size. It was then withdrawn carefully from the esophagus. The abdomen was inspected and found to be a plastic water bottle. The endoscope was reinserted. Pylorus was traversed and duodenal bulb was evaluated. There was no evidence of any residual ulcer. There was no obvious bleeding. Stomach was desufflated and scope was withdrawn. . Findings:: Esophageal dysmotility Gastroesophageal junction at 40 cm from incisors Moderate diffuse nonerosive gastropathy/gastritis Healed duodenal ulcer Foreign body (plastic water bottle cap) stuck in the duodenal bulb . Recommendations:: Follow-up on histopathology treat H. pylori if positive Complications:: None immediate Estimated blood obtained (mL): 2 Colonoscopy Component Colonoscopy Component Was a colonoscopy performed during today's procedure?: No
[2025-02-03 07:46] VITALS: BP 95/51; PULSE 63; RESP 16; TEMP 36.3; O2SAT 90
[2025-02-03 07:56] VITALS: BP 99/50; PULSE 62; RESP 18; TEMP 36.3; O2SAT 94
[2025-02-03 08:06] VITALS: BP 115/68; PULSE 58; RESP 18; TEMP 36.3; O2SAT 94
[2025-02-03 08:16] VITALS: BP 123/70; PULSE 56; RESP 18; TEMP 36.3; O2SAT 91
[2025-02-03 08:26] VITALS: BP 129/75; PULSE 62; RESP 16; TEMP 36.3; O2SAT 94
[2025-02-04 20:40] LABS: POC Glucose,Bedside 75 gm/dL (70-110)
== END 2025-02-03 08:26 | disposition home or self-care (01) ==
PROVIDERS: PCP Family Medicine; Visit Provider Surgery
PROC: 0DJ08ZZ Inspection of Upper Intestinal Tract, Via Natural or Artificial Opening Endoscopic (ICD-10-PCS; principal; 2025-02-03 07:30)
DX: K29.50 Unspecified chronic gastritis without bleeding (principal); T18.3XXA Foreign body in small intestine, initial encounter; K26.1 Acute duodenal ulcer with perforation; K22.4 Dyskinesia of esophagus; F32.A Depression, unspecified; M79.7 Fibromyalgia; W44.E9XA Other non-magnetic metal objects entering into or through a natural orifice, initial encounter; Z88.2 Allergy status to sulfonamides; Z79.899 Other long term (current) drug therapy
CPT/HCPCS: 43239; 43247; 82962; 88305; J2003; J2704; J7120

== ENCOUNTER 2025-03-03 14:24 | Outpatient (CLI) | payer MEDICARE, SELFPAY ==
--- OUTSIDE RECORDS SUMMARY | 2025-03-03 14:28 | XMS_ITS | Clinical Summary ---
Author Organization [facility] ([place], [place], [place], [place]) Address [address] [place] [address] Care Team Providers Care Dental Technologist Name Role Phone Anni Candelaria Primary Care Provider [phone] Allergies Active Allergy Reactions Criticality Noted Date [...] times daily with breakfast and dinner. Active [id number] -DPA-fish oil 1,050-1,200 mg Cap per capsule [...] Date Lino rded Speak language other than [place] at home Not on file 08/04/2023 Want [...] Screening 1996 Medicare Initial AWV [id number] 05/19/2022 Falls Risk Screening 05/18/2024 COVID-19 VACCINE ( - 2024- season) 2025 05/14/2023, 11/22/2020, 11/01/2020 Influenza Vaccine (#1) 2025 Respiratory Syncytial Virus (RSV) Adult or (1 - 1-dose 75+ series) 2031 Shingles Vaccine (Zoster) Completed 08/01/2021, 09/2020 Pneumococcal 50+ years Completed , 04/29/2018, 03/03/2017 Insurance [employer] MEDICARE PPO Care Teams Dental Technologist Relationship Specialty Start Date End Date Anni Candelaria PA [address] [place] [address] PCP - General Physician Car Unloader Helper 08/06/23
--- OUTSIDE RECORDS SUMMARY | 2025-03-03 14:28 | XMS_ITS | Referral Summary ---
Author Organization [facility] ([place], [place], [place], [place]) Address [address] [place] [address] Care Team Providers Care Oven Tender Name Role Phone Anni Candelaria Primary Care Provider [phone] Allergies Active Allergy Reactions Criticality Noted Date [...] times daily with breakfast and dinner. Active [id number] -DPA-fish oil 1,050-1,200 mg Cap per capsule [...] file Insurance [employer] MEDICARE PPO Care Teams Oven Tender Relationship Specialty Start Date End Date Anni Candelaria PA [address] [place] [address] PCP - General Physician Lawn Service Supervisor 08/06/23
--- OUTSIDE RECORDS SUMMARY | 2025-03-03 14:29 | XMS_ITS | Data Portability ---
Author Organization [place] - [facility] - [place] [facility] ADMIN Address [address] [place] [id number] Care Team Providers Care Survey Data Technician Name Role Phone EDY HERMAN Primary Care Provider Assessment Encounter Date Assessment Date Assessment LastModified by Organization Details LastModified Time 01/20/2024 01/20/2024 -MRI brain w/ and w/out for cognitive impairment, gait difficulties -lab workup for cognitive impairment -B complex vitamin -cognitive exercises -offered PT; pt unable to due to chronic pain -f/u with Pain Management -f/u as scheduled [place] [id number] Not available 01/20/2024 16:05:08 Plan of Treatment Reminders Order Date Submit Date Provider Last Modified By Organization Details Last Modified Time Details Appointments None recorded. Lab CBC w/ auto diff 2024 025 [facility], [address] , [place], [address], 5 17:49:41 vitamin B12 + folate, serum or blood 2024 025 [email or web address] [facility], [address] , [place], [address], 5 09:02:13 CMP, serum or plasma 2024 025 [facility], [address], [place], [address], 5 18:56:02 iron + TIBC + ferritin, serum 2024 025 [email or web address] 6 [facility], [address] [place], [address], 5 09:02:12 iron saturation, serum 2024 025 [email or web address] 6 [facility], [address] [place], [address], 5 09:02:13 CBC w/ auto diff 2023 024 [email or web address] 6 [facility], [address] [place], [address], 4 10:24:30 iron + TIBC + ferritin, serum 2023 024 [email or web address] 6 [facility], [address] [place], [address], 4 10:24:30 iron saturation, serum [email or web address] [place] [address] Lab, [address] [place], [address], 4 10:24:30 PTH (parathyroi d hormone), intact, serum or plasma 2023 024 [email or web address] [facility], [address] [place], [address], 4 13:13:10 vitamin D, 25-hydroxy, total, serum 2023 [email or web address] [place] [address] Lab, [address] [place], [address], 4 08:30:01 immunofixat ion, serum 2023 024 [email or web address] 6 [facility], [address], [place], [address], 4 08:30:01 CBC w/ auto diff 2023 024 [facility], [address], [place], [address], 4 18:28:26 CMP, serum or plasma 2023 024 [facility], [address], [place], [address], 4 18:46:16 vitamin B12 + folate, serum or blood 2023 [email or web address] [place] [address] Lab, [address], [place], [address], 4 08:30:00 mma (methylmalo orestes acid), serum [address]23 [email or web address] [place] [address] Lab, [address], [place], [address], 4 09:08:50 copper, serum or plasma [address]23 [email or web address] [place] [address] Lab, [address], [place], [address], 4 08:30:00 zinc, serum or plasma [email or web address] [place] [address] Lab, [address], [place], [address], 4 08:30:00 TSH + free T4, serum 2023 [email or web address] [place] [address] Lab, [address], [place], [address], 4 08:30:01 ldh, serum or plasma 2023 024 JACOB [facility], [address], [place], [address], 4 18:46:20 iron + TIBC + ferritin, serum 2023 024 [email or web address] 6 [facility], [address], [place], [address], 4 08:30:01 iron saturation, serum 2023 024 [email or web address] 6 [facility], [address], [place], [address], 4 08:30:01 erythropoie tin (epo), serum 2023 024 [email or web address] 6 [facility], [address], [place], [address], 4 08:30:02 CMP, serum or plasma 2023 024 [facility] (Lab Registration) , [address] [place] [address] [place], [address], 4 07:45:53 CBC w/ auto diff 2023 024 [facility] (Lab Registration) , [address] [place] [address] [place], [address], 4 07:45:53 TSH + free T4, serum 2023 024 [facility] (Lab Registration) , [address] [place] [address] [place], [address], 4 07:45:53 vitamin B12 + folate, serum or blood 2023 024 [facility] (Lab Registration) , [address] [place] [address] [place], [address], 4 07:45:53 Referral None recorded. Procedures None recorded. Surgeries None recorded. Imaging None recorded. Medication Orders vitamin B complex tablet 2023 [facility], [address] [place] [address] [place], [id number], 4 14:26:09 diazepam 5 mg tablet 2023 [facility], [address] [place] [address] [place], [id number], 4 12:35:17 Patient TargetsNo targets recorded. Patient InstructionsNo instructions recorded. Reason for Referral None Reported. Results Created Date Observation Date Name Description Value Unit Range Abnormal Flag Note LastModifiedBy Organization Detail LastModifiedTime 01/20/2001/20/2024 CBC W/ AUTO DIFF WBC 4.06 K/uL 4.5-11 .5 low Not Available [facility] (Pre[facility]Op [facility]) [address] [place] [address] [place], [address], 01/20/2024 17:00:44 01/20/20 24 01/20/2024 CBC W/ AUTO DIFF RBC 3.19 M/uL 4.0-5. 4 low Not Available [facility] ([facility]Op [facility]) [address] [place] [address] [place], [address], 01/20/2024 17:00:44 01/20/20 24 01/20/2024 CBC W/ AUTO DIFF HGB 10.6 g/dL 12.0-1 5.0 low Not Available [facility] ([facility]Op [facility]) [address] [place] [address] [place], [address], 01/20/2024 17:00:44 01/20/20 24 01/20/2024 CBC W/ AUTO DIFF HCT 31.9 % 35-49 low Not Available [facility] ([facility]) [address] [place] [address] [place], [address], 01/20/2024 17:00:44 01/20/20 24 01/20/2024 CBC W/ AUTO DIFF MCV 100.0 fL 80.0-1 00.0 Not Available [facility] ([facility]) [address] [place] [address] [place], [address], 01/20/2024 17:00:44 01/20/20 24 01/20/2024 CBC W/ AUTO DIFF MCH 33.2 pg 26.0-3 2.0 high Not Available [facility] ([facility]) [address] [place] [address] [place], [address], 01/20/2024 17:00:44 01/20/20 24 01/20/2024 CBC W/ AUTO DIFF MCHC 33.2 g/dL 32.0-3 6.0 Not Available [facility] ([facility]Op [facility]) [address] [place] [address] [place], [address], 01/20/2024 17:00:44 01/20/20 24 01/20/2024 CBC W/ AUTO DIFF RDW 12.6 % 11.5-1 4.5 Not Available [facility] ([facility]Op [facility]) [address] [place] [address] [place], [address], 01/20/2024 17:00:44 01/20/20 24 01/20/2024 CBC W/ AUTO DIFF platelet count 119 K/uL 142-42 4 low Not Available [facility] ([facility]) [address] [place] [address] [place], [address], 01/20/2024 17:00:44 01/20/20 24 01/20/2024 CBC W/ AUTO DIFF MPV 9.9 fL 6.8-10 .2 Not Available [facility] (Pre-Op Clinic) [address] [place] [address] [place], [address], 01/20/2024 17:00:44 01/20/20 24 01/20/2024 CBC W/ AUTO DIFF neutrophil % 68.7 % 50-70 Not Available [facility] ([facility]Op [facility]) [address] [place], [address], 01/20/2024 17:00:44 01/20/20 24 01/20/2024 CBC W/ AUTO DIFF lymphocyte % 19.7 % 18.0-4 2.0 Not Available [facility] ([facility]Op [facility]) [address] [place], [address], 01/20/2024 17:00:44 01/20/20 24 01/20/2024 CBC W/ AUTO DIFF monocyte % 8.9 % 2.0-11 .0 Not Available [facility] (Pre-Op Clinic) [address] [place] [address] [place], [address], 01/20/2024 17:00:44 01/20/20 24 01/20/2024 CBC W/ AUTO DIFF eosinophil % 1.7 % 1.0-3. 0 Not Available [facility] (Pre-Op [facility]) [address] [place], [address], 01/20/2024 17:00:44 01/20/20 24 01/20/2024 CBC W/ AUTO DIFF basophil % 0.5 % 0.0-2. 0 Not Available [facility] (Pre-Op [facility]) [address] [place], [address], 01/20/2024 17:00:44 01/20/20 24 01/20/2024 CBC W/ AUTO DIFF immature granulocytes % 0.5 % 0.0-0. 8 Not Available [facility] (Pre-Op [facility]) [address] [place] [address] [place], [address], 01/20/2024 17:00:44 01/20/20 24 01/20/2024 CBC W/ AUTO DIFF nucleated red blood cells % 0.0 % Not Available [facility] (Pre-Op [facility]) [address] [place] [address] [place], [address], 01/20/2024 17:00:44 01/20/20 24 01/20/2024 CBC W/ AUTO DIFF neutrophil # 2.79 K/uL Not Available [facility] ([facility]Op [facility]) [address] [place], [address], 01/20/2024 17:00:44 01/20/20 24 01/20/2024 CBC W/ AUTO DIFF lymphocyte # 0.80 K/uL Not Available [facility] ([facility]Op [facility]) [address] [place], [address], 01/20/2024 17:00:44 01/20/20 24 01/20/2024 CBC W/ AUTO DIFF monocyte # 0.36 K/uL Not Available [facility] (Pre[facility]Op [facility]) [address] [place], [address], 01/20/2024 17:00:44 01/20/20 24 01/20/2024 CBC W/ AUTO DIFF eosinophil # 0.07 K/uL Not Available [facility] ([facility]) [address] [place], [address], 01/20/2024 17:00:44 01/20/20 24 01/20/2024 CBC W/ AUTO DIFF basophil # 0.02 K/uL Not Available [facility] (Pre[facility]Op [facility]) [address] [place], [address], 01/20/2024 17:00:44 01/20/20 24 01/20/2024 CBC W/ AUTO DIFF immature gramulocytes # 0.02 K/uL Not Available [facility] (Pre-Op [facility]) [address] [place] [address] [place], [address], 01/20/2024 17:00:44 01/20/20 24 01/20/2024 CBC W/ AUTO DIFF nucleated red blood cells # 0.00 k/uL Not Available [facility] (Pre[facility]Op [facility]) [address] [place] [address] [place], [address], 01/20/2024 17:00:44 01/20/20 24 01/20/2024 CBC W/ AUTO DIFF manual differential NO Not Available [facility] ([facility]) [address] [place] [address] [place], [address], 01/20/2024 17:00:44 01/20/20 24 01/20/2024 CBC W/ AUTO DIFF note Unles s other rosa noted testi ng perfo [facility]med at: [facility] [address] [facility] [place] [address] Rogelio caballero MD Not Available [facility] ([facility]) [address] [place] [address] [place], [address], 01/20/2024 17:00:44 01/20/20 24 01/20/2024 COMP METAB OLIC PANEL sodium 133 mmol/ L 137-14 7 low Not Available [facility] ([facility]) [address] [place] [address] [place], [address], 01/20/2024 17:40:07 01/20/20 24 01/20/2024 COMP METAB OLIC PANEL potassium 4.5 mmol/ L 3.5-5. 1 Not Available [facility] ([facility]) [address] [place] [address] [place], [address], 01/20/2024 17:40:07 01/20/20 24 01/20/2024 COMP METAB OLIC PANEL chloride 92 mmol/ L 98-110 low Not Available [facility] ([facility]) [address] [place] [address] [place], [address], 01/20/2024 17:40:07 01/20/20 24 01/20/2024 COMP METAB OLIC PANEL carbon dioxide 33 mmol/ L 21-30 high Not Available [facility] ([facility]) [address] [place] [address] [place], [address], 01/20/2024 17:40:07 01/20/20 24 01/20/2024 COMP METAB OLIC PANEL anion gap 8 mmol/ L 6-14 Not Available [facility] ([facility]) [address] [place], [address], 01/20/2024 17:40:07 01/20/20 24 01/20/2024 COMP METAB OLIC PANEL glucose 87 mg/dL 70-115 Not Available [facility] ([facility]) [address] [place], [address], 01/20/2024 17:40:07 01/20/20 24 01/20/2024 COMP METAB OLIC PANEL BUN 21 mg/dL 7-17 high Not Available [facility] ([facility]) [address] [place], [address], 01/20/2024 17:40:07 01/20/20 24 01/20/2024 COMP METAB OLIC PANEL creatinine 1.0 mg/dL 0.5-1. 5 Not Available [facility] ([facility]) [address] [place], [address], 01/20/2024 17:40:07 01/20/20 24 01/20/2024 COMP METAB OLIC PANEL BUN/creatini ne ratio 21 ratio 10-20 high Not Available [facility] ([facility]) [address] [place], [address], 01/20/2024 17:40:07 01/20/20 24 01/20/2024 COMP METAB OLIC PANEL glom filtration rate 62 mL/mi n >60- Not Available [facility] ([facility]) [address] [place] [address] [place], [address], 01/20/2024 17:40:07 01/20/20 24 01/20/2024 COMP METAB OLIC PANEL osmolality (calculated) 279 mosmo l/kg 275-30 1 OSMOL ALITY IS A CALCU LATIO N UTILI ZING THE SERUM /PLAS MA SODIU M, GLUCO SE AND UREA NITRO GEN (BUN) LEVEL S. FOR THE MOST ACCUR ATE RESUL T A MEASU RED SERUM OSMOL ALIVASYL IS NAVEED ANGELES. Not Available [facility] ([facility]) [address] [place] [address] [place], [address], 01/20/2024 17:40:07 01/20/20 24 01/20/2024 COMP METAB OLIC PANEL total protein 6.2 g/dL 6.2-8. 2 Not Available [facility] ([facility]) [address] [place] [address] [place], [address], 01/20/2024 17:40:07 01/20/20 24 01/20/2024 COMP METAB OLIC PANEL albumin 3.6 g/dL 3.5-5. 0 Not Available [facility] ([facility]) [address] [place] [address] [place], [address], 01/20/2024 17:40:07 01/20/20 24 01/20/2024 COMP METAB OLIC PANEL calcium 8.8 mg/dL 8.5-10 .8 Not Available [facility] ([facility]Op [facility]) [address] [place] [address] [place], [address], 01/20/2024 17:40:07 01/20/20 24 01/20/2024 COMP METAB OLIC PANEL bilirubin total 0.2 mg/dL 0.2-1. 3 Not Available [facility] ([facility]Op [facility]) [address] [place] [address] [place], [address], 01/20/2024 17:40:07 01/20/20 24 01/20/2024 COMP METAB OLIC PANEL AST (SGOT) 20 IU/L 14-36 Not Available [facility] ([facility]) [address] [place] [address] [place], [address], 01/20/2024 17:40:07 01/20/20 24 01/20/2024 COMP METAB OLIC PANEL ALT (SGPT) 8 IU/L 0-35 Pleas e note new refer ence inter elan for ALT. Due to a recen t manuf actur er sanchoo dolog y lockwood e, the refer ence inter elan for ALT is lower effec tive September 06, 2020. Not Available [facility] ([facility]) [address] [place] [address] [place], [address], 01/20/2024 17:40:07 01/20/20 24 01/20/2024 COMP METAB OLIC PANEL alk phosphatase 117 IU/L 38-126 Not Available [facility] ([facility]Op [facility]) [address] [place] [address] [place], [address], 01/20/2024 17:40:07 01/20/20 24 01/20/2024 COMP METAB OLIC PANEL note Unles s other rosa noted testi ng perfo rmed at: [facility] [address] [place] [place] [address] Rogelio caballero MD Not Available [facility] ([facility]) [address] [place] [address] [place], [address], 01/20/2024 17:40:07 01/20/20 24 01/20/2024 T4 FREE T4 free 1.07 NG/dL 0.78-2 .19 Not Available [facility] ([facility]) [address] [place] [address] [place], [address], 01/20/2024 17:54:34 01/20/20 24 01/20/2024 T4 FREE note Unles s other rosa noted testi ng perfo rmed at: [facility] [address] [place] [place] [address] Rogelio caballero MD Not Available [facility] ([facility]) [address] [place] [address] [place], [address], 01/20/2024 17:54:34 01/20/20 24 01/20/2024 TSH thyroid stim hormone 0.86 uIU/m L 0.465- 4.68 Not Available [facility] ([facility]) [address] [place] [address] [place], [address], 01/20/2024 18:09:51 01/20/20 24 01/20/2024 TSH note Unles s other rosa noted testi ng perfo rmed at: [facility] [address] [place] [address] Rogelio caballero MD Not Available [facility] ([facility]) [address] [place] [address] [place], [address], 01/20/2024 18:09:51 01/20/20 24 01/20/2024 VITAM IN B12 vitamin B12 >1000 pg/mL 239-93 1 high Not Available [facility] ([facility]) [address] [place] [address] [place], [address], 01/20/2024 18:45:24 01/20/20 24 01/20/2024 VITAM IN B12 folate (folic acid), serum 2.8 NG/mL 2.76- Not Available [facility] ([facility]Op [facility]) [address] [place] [address] [place], [address], 01/20/2024 18:45:24 01/20/20 24 01/20/2024 VITAM IN B12 note Unles s other rosa noted testi ng perfo rmed at: [facility] [address] [place] [address] Rogelio caballero MD Not Available [facility] ([facility]) [address] [place] [address] [place], [address], 01/20/2024 18:45:24 03/28/20 24 03/28/2024 CBC AUTO W DIFF WBC 3.7 K/uL 4.0-10 .5 low Not Available [facility] ([facility]) [address], [place], [address], 03/28/2024 18:28:26 03/28/20 24 03/28/2024 CBC AUTO W DIFF RBC 3.1 M/mm3 4.2-6. 4 low Not Available [facility] ([facility]) [address] , [place], [address], 03/28/2024 18:28:26 03/28/20 24 03/28/2024 CBC AUTO W DIFF HGB 9.7 gm/dL 12.5-1 6.0 low Not Available [facility] ([facility]) [address] , [place], [address], 03/28/2024 18:28:26 03/28/20 24 03/28/2024 CBC AUTO W DIFF HCT 30.6 % 37.0-4 7.0 low Not Available [facility] ([facility]) [address] , [place], [address], 03/28/2024 18:28:26 03/28/20 24 03/28/2024 CBC AUTO W DIFF MCV 100.3 fL 78-100 high Not Available [facility] ([facility]) [address], [place], [address], 03/28/2024 18:28:26 03/28/20 24 03/28/2024 CBC AUTO W DIFF MCH 31.8 pg 27-31 high Not Available [facility] ([facility]) [address] , [place], [address], 03/28/2024 18:28:26 03/28/20 24 03/28/2024 CBC AUTO W DIFF MCHC 31.7 g/dL 32-36 low Not Available [facility] ([facility]) [address] [place], [address], 03/28/2024 18:28:26 03/28/20 24 03/28/2024 CBC AUTO W DIFF RDW 12.5 % 11.5-1 4.0 Not Available [facility] ([facility]) [address], [place], [address], 03/28/2024 18:28:26 03/28/20 24 03/28/2024 CBC AUTO W DIFF platelet count 134 K/uL 150-45 0 low Not Available [facility] ([facility]) [address] , [place], [address], 03/28/2024 18:28:26 03/28/20 24 03/28/2024 CBC AUTO W DIFF MPV 10.7 fL 6-9.5 high Not Available [facility] ([facility]) [address] , [place], [address], 03/28/2024 18:28:26 03/28/20 24 03/28/2024 CBC AUTO W DIFF neutrophil% 60.9 % 43-65 Not Available [facility] ([facility]) [address], [place], [address], 03/28/2024 18:28:26 03/28/20 24 03/28/2024 CBC AUTO W DIFF lymphocyte% 25.1 % 20.5-4 5.5 Not Available [facility] ([facility]) [address] , [place], [address], 03/28/2024 18:28:26 03/28/20 24 03/28/2024 CBC AUTO W DIFF monocyte% 8.1 % 5.5-11 .7 Not Available [facility] ([facility]) [address] [place], [address], 03/28/2024 18:28:26 03/28/20 24 03/28/2024 CBC AUTO W DIFF eosinophil% 5.4 % 0.9-2. 9 high Not Available [facility] ([facility]) [address], [place], [address], 03/28/2024 18:28:26 03/28/20 24 03/28/2024 CBC AUTO W DIFF basophil% 0.5 % 0.2-1. 0 Not Available [facility] ([facility]) [address], [place], [address], 03/28/2024 18:28:26 03/28/20 24 03/28/2024 CBC AUTO W DIFF immature granulocytes % 0.0 % 0.0-0. 8 Not Available [facility] ([facility]) [address], [place], [address], 03/28/2024 18:28:26 03/28/20 24 03/28/2024 CBC AUTO W DIFF nucleated red blood cells % 0.0 % Not Available [facility] ([facility]) [address], [place], [address], 03/28/2024 18:28:26 03/28/20 24 03/28/2024 CBC AUTO W DIFF neutrophil# 2.3 K/uL 2.2-4. 8 Not Available [facility] ([facility]) [address], [place], [address], 03/28/2024 18:28:26 03/28/20 24 03/28/2024 CBC AUTO W DIFF lymphocyte# 0.9 cell/ mcL 1.3-2. 9 low Not Available [facility] ([facility]) [address], [place], [address], 03/28/2024 18:28:26 03/28/20 24 03/28/2024 CBC AUTO W DIFF monocyte# 0.3 cell/ mcL 0.3-0. 8 Not Available [facility] ([facility]) [address] [place], [address], 03/28/2024 18:28:26 03/28/20 24 03/28/2024 CBC AUTO W DIFF eosinophil# 0.2 cell/ mcL 0-0.2 Not Available [facility] ([facility]) [address] [place], [address], 03/28/2024 18:28:26 03/28/20 24 03/28/2024 CBC AUTO W DIFF basophil# 0.0 cell/ mcL 0.0-1. 0 Not Available [facility] ([facility]) [address], [place], [address], 03/28/2024 18:28:26 03/28/20 24 03/28/2024 CBC AUTO W DIFF immature gramulocytes # 0.00 K/uL Not Available [facility] ([facility]) [address], [place], [address], 03/28/2024 18:28:26 03/28/20 24 03/28/2024 CBC AUTO W DIFF nucleated red blood cells # 0.00 K/uL Not Available [facility] ([facility]) [address], [place], [address], 03/28/2024 18:28:26 03/28/20 24 03/28/2024 CBC AUTO W DIFF manual differential NO Not Available [facility] ([facility]) [address], [place], [address], 03/28/2024 18:28:26 03/28/20 24 03/28/2024 IRON STUDY (IRON /TIBC /%SAT ) iron 54 mcg/m L 40-180 Not Available [facility] ([facility]) [address], [place], [address], 03/28/2024 18:44:10 03/28/20 24 03/28/2024 IRON STUDY (IRON /TIBC /%SAT ) TIBC 196 mcg/d L 250-45 0 low Not Available [facility] ([facility]) [address], [place], [address], 03/28/2024 18:44:10 03/28/20 24 03/28/2024 IRON STUDY (IRON /TIBC /%SAT ) %sat 28 15-55 Not Available [facility] ([facility]) [address] , [place], [address], 03/28/2024 18:44:10 03/28/20 24 03/28/2024 COMP METAB OLIC PANEL sodium 137 mmol/ L 136-14 5 Not Available [facility] ([facility]) [address] , [place], [address], 03/28/2024 18:46:16 03/28/20 24 03/28/2024 COMP METAB OLIC PANEL potassium 5.2 mmol/ L 3.6-5. 0 high Not Available [facility] ([facility]) [address] , [place], [address], 03/28/2024 18:46:16 03/28/20 24 03/28/2024 COMP METAB OLIC PANEL chloride 100 mmol/ L 98-107 Not Available [facility] ([facility]) [address] , [place], [address], 03/28/2024 18:46:16 03/28/20 24 03/28/2024 COMP METAB OLIC PANEL carbon dioxide 31.5 mmol/ L 21.0-3 2.0 Not Available [facility] ([facility]) [address] , [place], [address], 03/28/2024 18:46:16 03/28/20 24 03/28/2024 COMP METAB OLIC PANEL anion gap 10.7 Not Available [facility] ([facility]) [address] , [place], [address], 03/28/2024 18:46:16 03/28/20 24 03/28/2024 COMP METAB OLIC PANEL glucose 99 mg/dL 70-120 Not Available [facility] ([facility]) [address] [place], [address], 03/28/2024 18:46:16 03/28/20 24 03/28/2024 COMP METAB OLIC PANEL BUN 14 mg/dL 7-18 Not Available [facility] ([facility]) [address], [place], [address], 03/28/2024 18:46:16 03/28/20 24 03/28/2024 COMP METAB OLIC PANEL creatinine 1.0 mg/dL 0.6-1. 3 Not Available [facility] ([facility]) [address], [place], [address], 03/28/2024 18:46:16 03/28/20 24 03/28/2024 COMP METAB [...] lockwood ing kiney funct ion. Not Available [facility] ([facility]) [address], [place], [address], 03/28/2024 18:46:16 03/28/20 24 03/28/2024 COMP METAB OLIC PANEL total protein 6.8 g/dL 6.4-8. 2 Not Available [facility] ([facility]) [address], [place], [address], 03/28/2024 18:46:16 03/28/20 24 03/28/2024 COMP METAB OLIC PANEL albumin 3.1 g/dL 3.4-5. 0 low Not Available [facility] ([facility]) [address], [place], [address], 03/28/2024 18:46:16 11/11/03/28/2024 COMP METAB OLIC PANEL globulin 3.7 Not Available [facility] ([facility]) [address], [place], [address], 03/28/2024 18:46:16 03/28/20 24 03/28/2024 COMP METAB OLIC PANEL alb/glob ratio 0.8 0.7-2 Not Available [facility] ([facility]) [address] , [place], [address], 03/28/2024 18:46:16 03/28/20 24 03/28/2024 COMP METAB OLIC PANEL calcium 9.3 mg/dL 8.5-10 .5 Not Available [facility] ([facility]) [address] , [place], [address], 03/28/2024 18:46:16 03/28/20 24 03/28/2024 COMP METAB OLIC PANEL bilirubin total 0.30 mg/dL 0.10-1 .00 Not Available [facility] ([facility]) [address] , [place], [address], 03/28/2024 18:46:16 03/28/20 24 03/28/2024 COMP METAB OLIC PANEL AST (SGOT) 14 U/L 0-37 Not Available [facility] ([facility]) [address] , [place], [address], 03/28/2024 18:46:16 03/28/20 24 03/28/2024 COMP METAB OLIC PANEL ALT (SGPT) 14 U/L 0-65 Not Available [facility] ([facility]) [address] , [place], [address], 03/28/2024 18:46:16 03/28/20 24 03/28/2024 COMP METAB OLIC PANEL alk phosphatase 76 U/L 46-116 Not Available [facility] ([facility]) [address] , [place], [address], 03/28/2024 18:46:16 03/28/20 24 03/28/2024 THYRO ID STIMU LATIN G HORMO NE thyroid stim hormone 0.94 mIU/L 0.36-3 .74 Not Available [facility] ([facility]) [address], [place], [address], 03/28/2024 18:46:18 03/28/20 24 03/28/2024 T4 FREE T4 free 0.86 NG/dL 0.76-1 .46 Not Available [facility] ([facility]) [address], [place], [address], 03/28/2024 18:46:19 03/28/20 24 03/28/2024 LDH (LD) LDH 136 U/L 0-190 Not Available [facility] ([facility]) [address] [facility], [place], [address], 03/28/2024 18:46:20 03/28/20 24 03/28/2024 SAROJ TIN ferritin, serum 118 NG/mL 3-244 Not Available [facility] ([facility]) [address] [facility], [place], [address], 03/28/2024 18:46:22 03/28/20 24 03/28/2024 VITAM IN B12 vitamin B12 1304 pg/mL 193-98 6 high *Note : Refer shannon Loo. New Test Metho d in use. Not Available [facility] ([facility]) [address], [place], [address], 03/28/2024 19:08:36 03/28/20 24 03/28/2024 VITAM IN B12 folate (folic acid), serum 4.5 NG/mL 8.6-58 .9 low *Note : Refer shannon Loo. New Test Metho d in use. Not Available [facility] ([facility]) [address] [facility], [place], [address], 03/28/2024 19:08:36 03/28/20 24 03/29/2024 VITAM IN D, 25-HY DROXY vitamin D, 25-hydroxy 35.4 NG/mL 30.0-1 00.0 Not Available [facility] ([facility]) [address], [place], [address], 03/29/2024 01:53:12 03/28/20 24 03/30/2024 PTH, INTAC T PTH, intact 30 pg/mL 15-65 Perfo rmed at: - [facility] [address] [place] [address] Lab Direc tor: Sushil euceda PhD, Phone : [phone] Not Available [facility] ([facility]) [address], [place], [address], 03/30/2024 13:13:10 03/28/20 24 03/31/2024 IMMUN OFIXA TION, SERUM (CHE) IgA 208 mg/dL 87-352 Not Available [facility] ([facility]) [address] [facility], [place], [address], 04/01/2024 01:00:52 03/28/20 24 03/31/2024 IMMUN OFIXA TION, SERUM (CHE) IgM 70 mg/dL 26-217 Perfo rmed at: - [facility] n [address] [place] [address] Lab Direc tor: Sushil euceda PhD, Phone : [phone] Not Available [facility] ([facility]) [address] [place], [address], 04/01/2024 01:00:52 03/28/20 24 03/31/2024 IMMUN OFIXA TION, SERUM (CHE) IgG 1113 mg/dL 586-16 02 Not Available [facility] ([facility]) [address] [place], [address], 04/01/2024 01:00:52 03/28/20 24 03/31/2024 IMMUN OFIXA TION, SERUM (CHE) immunofixati on, serum (che) Commen t No monoc lonal ity detec conchis. Not Available [facility] ([facility]) [address] [facility], [place], [address], 04/01/2024 01:00:52 03/28/20 24 03/31/2024 ERYTH ROPOI ETIN QUANT erythropoiet in, serum 25.1 mIU/m L 2.6-18 .5 high Beckm an Coult er UniCe l DxI 800 Immun oassa y Syste m . Value s obtai romulo with diffe rent assay metho ds or kits canno t be used inter [facility] . Resul ts canno t be inter prete d as absol michelle evide nce of the prese nce or absen ce of [facility] . Perfo rmed at: - [facility] [address] [place] [address] Lab Direc tor: Sushil euceda PhD, Phone : [phone] Not Available [facility] ([facility]) [address] [facility], [place], [address], 04/01/2024 01:00:53 03/28/20 24 04/02/2024 ZINC BLOOD zinc, plasma or serum 65 ug/dL 44-115 Speci men Comme nt: Test( s) 70924 0-Zin c, Plasm a or Serum Speci [...] Perfo rmed at: - [facility] Kareem herrera [address] [place] [address] Lab Direc tor: Christiana glez MD, Phone : [phone] Not Available [facility] ([facility]) [address] [facility], [place], [address], 04/02/2024 06:15:14 03/28/20 24 04/02/2024 COPPE R BLOOD copper, serum plasma 84 ug/dL 80-158 Speci men Comme nt: Test( s) 59475 6-Tentmaker per, Serum or Plasm a Speci men Comme nt: was devel oped and its perfo rmanc e lisbet cte risti cs Speci men Comme nt: deter mined by [facility]. It has not been ashia ared or appro kaya Speci men Comme nt: by the Food and Drug Admin istra tion. Detec tion Limit = 5 Perfo rmed at: - [facility] K[address] [address] Lab Direc tor: Christiana glez MD, Phone : [phone] Not Available [facility] ([facility]) [address] [facility], [place], [address], 04/02/2024 06:15:14 03/28/20 24 04/06/2024 METHY LMALO ORESTES ACID QUANT methylmaloni c acid, serum 362 nmol/ L 0-378 Speci men Comme nt: Test( s) 62521 7-Met hylma lonic Acid, Serum Speci men Comme nt: was devel oped and its perfo rmanc e lisbet cte risti cs Speci men Comme nt: deter mined by [facility]. It has not been ashia ared or appro kaya Speci men Comme nt: by the Food and Drug Admin istra tion. Perfo rmed at: [facility] K[address]em herrera [address] [place] [address] Lab Direc tor: Christiana glez MD, Phone : [phone] Not Available [facility] ([facility]) [address] [facility], [place], [address], 04/06/2024 09:15:14 05/06/20 05/06/2024 CBC AUTO W DIFF WBC 3.4 K/uL 4.0-10 .5 low Not Available [facility] ([facility]) [address] , [place], [address], 05/06/2024 15:17:45 05/06/20 24 05/06/2024 CBC AUTO W DIFF RBC 3.4 M/mm3 4.2-6. 4 low Not Available [facility] ([facility]) [address] , [place], [address], 05/06/2024 15:17:45 05/06/20 24 05/06/2024 CBC AUTO W DIFF HGB 10.5 gm/dL 12.5-1 6.0 low Not Available [facility] ([facility]) [address], [place], [address], 05/06/2024 15:17:45 05/06/20 24 05/06/2024 CBC AUTO W DIFF HCT 32.7 % 37.0-4 7.0 low Not Available [facility] ([facility]) [address], [place], [address], 05/06/2024 15:17:45 05/06/20 24 05/06/2024 CBC AUTO W DIFF MCV 97.6 fL 78-100 Not Available [facility] ([facility]) [address] , [place], [address], 05/06/2024 15:17:45 05/06/20 24 05/06/2024 CBC AUTO W DIFF MCH 31.3 pg 27-31 high Not Available [facility] ([facility]) [address] [place], [address], 05/06/2024 15:17:45 05/06/20 24 05/06/2024 CBC AUTO W DIFF MCHC 32.1 g/dL 32-36 Not Available [facility] ([facility]) [address] [place], [address], 05/06/2024 15:17:45 05/06/20 24 05/06/2024 CBC AUTO W DIFF RDW 12.7 % 11.5-1 4.0 Not Available [facility] ([facility]) [address], [place], [address], 05/06/2024 15:17:45 05/06/20 24 05/06/2024 CBC AUTO W DIFF platelet count 129 K/uL 150-45 0 low Not Available [facility] ([facility]) [address], [place], [address], 05/06/2024 15:17:45 05/06/20 24 05/06/2024 CBC AUTO W DIFF MPV 10.3 fL 6-9.5 high Not Available [facility] ([facility]) [address], [place], [address], 05/06/2024 15:17:45 05/06/20 24 05/06/2024 CBC AUTO W DIFF neutrophil% 62.7 % 43-65 Not Available [facility] ([facility]) [address], [place], [address], 05/06/2024 15:17:45 05/06/20 24 05/06/2024 CBC AUTO W DIFF lymphocyte% 23.2 % 20.5-4 5.5 Not Available [facility] ([facility]) [address] [place], [address], 05/06/2024 15:17:45 05/06/20 24 05/06/2024 CBC AUTO W DIFF monocyte% 8.5 % 5.5-11 .7 Not Available [facility] ([facility]) [address], [place], [address], 05/06/2024 15:17:45 05/06/20 24 05/06/2024 CBC AUTO W DIFF eosinophil% 4.7 % 0.9-2. 9 high Not Available [facility] ([facility]) [address] [place], [address], 05/06/2024 15:17:45 05/06/20 24 05/06/2024 CBC AUTO W DIFF basophil% 0.6 % 0.2-1. 0 Not Available [facility] ([facility]) [address] [place], [address], 05/06/2024 15:17:45 05/06/20 24 05/06/2024 CBC AUTO W DIFF immature granulocytes % 0.3 % 0.0-0. 8 Not Available [facility] ([facility]) [address] [place], [address], 05/06/2024 15:17:45 05/06/20 24 05/06/2024 CBC AUTO W DIFF nucleated red blood cells % 0.0 % Not Available [facility] ([facility]) [address] [facility], [place], [address], 05/06/2024 15:17:45 05/06/20 24 05/06/2024 CBC AUTO W DIFF neutrophil# 2.1 K/uL 2.2-4. 8 low Not Available [facility] ([facility]) [address] [place], [address], 05/06/2024 15:17:45 05/06/20 24 05/06/2024 CBC AUTO W DIFF lymphocyte# 0.8 cell/ mcL 1.3-2. 9 low Not Available [facility] ([facility]) [address] [place], [address], 05/06/2024 15:17:45 05/06/20 24 05/06/2024 CBC AUTO W DIFF monocyte# 0.3 cell/ mcL 0.3-0. 8 Not Available [facility] ([facility]) [address] [place], [address], 05/06/2024 15:17:45 05/06/20 24 05/06/2024 CBC AUTO W DIFF eosinophil# 0.2 cell/ mcL 0-0.2 Not Available [facility] ([facility]) [address], [place], [address], 05/06/2024 15:17:45 05/06/20 24 05/06/2024 CBC AUTO W DIFF basophil# 0.0 cell/ mcL 0.0-1. 0 Not Available [facility] ([facility]) [address] , [place], [address], 05/06/2024 15:17:45 05/06/20 24 05/06/2024 CBC AUTO W DIFF immature gramulocytes # 0.01 K/uL Not Available [facility] ([facility]) [address], [place], [address], 05/06/2024 15:17:45 05/06/20 24 05/06/2024 CBC AUTO W DIFF nucleated red blood cells # 0.00 K/uL Not Available [facility] ([facility]) [address] , [place], [address], 05/06/2024 15:17:45 05/06/20 24 05/06/2024 CBC AUTO W DIFF manual differential NO Not Available [facility] ([facility]) [address] , [place], [address], 05/06/2024 15:17:45 06/22/19 25 06/22/2024 CBC AUTO W DIFF WBC 4.6 K/uL 4.0-10 .5 Not Available [facility] ([facility]) [address] , [place], [address], 06/22/2024 17:49:41 06/22/19 25 06/22/2024 CBC AUTO W DIFF RBC 3.6 M/mm3 4.2-6. 4 low Not Available [facility] ([facility]) [address], [place], [address], 06/22/2024 17:49:41 06/22/19 25 06/22/2024 CBC AUTO W DIFF HGB 11.2 gm/dL 12.5-1 6.0 low Not Available [facility] ([facility]) [address], [place], [address], 06/22/2024 17:49:41 06/22/19 25 06/22/2024 CBC AUTO W DIFF HCT 34.2 % 37.0-4 7.0 low Not Available [facility] ([facility]) [address], [place], [address], 06/22/2024 17:49:41 06/22/19 25 06/22/2024 CBC AUTO W DIFF MCV 95.8 fL 78-100 Not Available [facility] ([facility]) [address], [place], [address], 06/22/2024 17:49:41 06/22/19 25 06/22/2024 CBC AUTO W DIFF MCH 31.4 pg 27-31 high Not Available [facility] ([facility]) [address], [place], [address], 06/22/2024 17:49:41 06/22/19 25 06/22/2024 CBC AUTO W DIFF MCHC 32.7 g/dL 32-36 Not Available [facility] ([facility]) [address], [place], [address], 06/22/2024 17:49:41 06/22/19 25 06/22/2024 CBC AUTO W DIFF RDW 13.9 % 11.5-1 4.0 Not Available [facility] ([facility]) [address] [place], [address], 06/22/2024 17:49:41 06/22/19 25 06/22/2024 CBC AUTO W DIFF platelet count 158 K/uL 150-45 0 Not Available [facility] ([facility]) [address], [place], [address], 06/22/2024 17:49:41 06/22/19 25 06/22/2024 CBC AUTO W DIFF MPV 9.8 fL 6-9.5 high Not Available [facility] ([facility]) [address], [place], [address], 06/22/2024 17:49:41 06/22/19 25 06/22/2024 CBC AUTO W DIFF neutrophil% 55.1 % 43-65 Not Available [facility] ([facility]) [address] [facility], [place], [address], 06/22/2024 17:49:41 06/22/19 25 06/22/2024 CBC AUTO W DIFF lymphocyte% 29.4 % 20.5-4 5.5 Not Available [facility] ([facility]) [address] [facility], [place], [address], 06/22/2024 17:49:41 06/22/19 25 06/22/2024 CBC AUTO W DIFF monocyte% 7.8 % 5.5-11 .7 Not Available [facility] ([facility]) [address] [place], [address], 06/22/2024 17:49:41 06/22/19 25 06/22/2024 CBC AUTO W DIFF eosinophil% 6.8 % 0.9-2. 9 high Not Available [facility] ([facility]) [address] [place], [address], 06/22/2024 17:49:41 06/22/19 25 06/22/2024 CBC AUTO W DIFF basophil% 0.7 % 0.2-1. 0 Not Available [facility] ([facility]) [address], [place], [address], 06/22/2024 17:49:41 06/22/19 25 06/22/2024 CBC AUTO W DIFF immature granulocytes % 0.2 % 0.0-0. 8 Not Available [facility] ([facility]) [address], [place], [address], 06/22/2024 17:49:41 06/22/19 25 06/22/2024 CBC AUTO W DIFF nucleated red blood cells % 0.0 % Not Available [facility] ([facility]) [address] [facility], [place], [address], 06/22/2024 17:49:41 06/22/19 25 06/22/2024 CBC AUTO W DIFF neutrophil# 2.5 K/uL 2.2-4. 8 Not Available [facility] ([facility]) [address] [facility], [place], [address], 06/22/2024 17:49:41 06/22/19 25 06/22/2024 CBC AUTO W DIFF lymphocyte# 1.4 cell/ mcL 1.3-2. 9 Not Available [facility] ([facility]) [address] [facility], [place], [address], 06/22/2024 17:49:41 06/22/19 25 06/22/2024 CBC AUTO W DIFF monocyte# 0.4 cell/ mcL 0.3-0. 8 Not Available [facility] ([facility]) [address] [facility], [place], [address], 06/22/2024 17:49:41 06/22/19 25 06/22/2024 CBC AUTO W DIFF eosinophil# 0.3 cell/ mcL 0-0.2 high Not Available [facility] ([facility]) [address] [place], [address], 06/22/2024 17:49:41 06/22/19 25 06/22/2024 CBC AUTO W DIFF basophil# 0.0 cell/ mcL 0.0-1. 0 Not Available [facility] ([facility]) [address] [place], [address], 06/22/2024 17:49:41 06/22/19 25 06/22/2024 CBC AUTO W DIFF immature gramulocytes # 0.01 K/uL Not Available [facility] ([facility]) [address] [place], [address], 06/22/2024 17:49:41 06/22/19 25 06/22/2024 CBC AUTO W DIFF nucleated red blood cells # 0.00 K/uL Not Available [facility] ([facility]) [address] [facility], [place], [address], 06/22/2024 17:49:41 06/22/19 25 06/22/2024 CBC AUTO W DIFF manual differential NO Not Available [facility] ([facility]) [address] [place], [address], 06/22/2024 17:49:41 06/22/19 25 06/22/2024 IRON STUDY (IRON /TIBC /%SAT ) iron 44 mcg/m L 40-180 Not Available [facility] ([facility]) [address] [place], [address], 06/22/2024 18:43:25 06/22/19 25 06/22/2024 IRON STUDY (IRON /TIBC /%SAT ) TIBC 199 mcg/d L 250-45 0 low Not Available [facility] ([facility]) [address] [place], [address], 06/22/2024 18:43:25 06/22/19 25 06/22/2024 IRON STUDY (IRON /TIBC /%SAT ) %sat 22 15-55 Not Available [facility] ([facility]) [address] , [place], [address], 06/22/2024 18:43:25 06/22/19 25 06/22/2024 COMP METAB OLIC PANEL sodium 139 mmol/ L 136-14 5 Not Available [facility] ([facility]) [address] , [place], [address], 06/22/2024 18:56:02 06/22/19 25 06/22/2024 COMP METAB OLIC PANEL potassium 4.8 mmol/ L 3.6-5. 0 Not Available [facility] ([facility]) [address] , [place], [address], 06/22/2024 18:56:02 06/22/19 25 06/22/2024 COMP METAB OLIC PANEL chloride 103 mmol/ L 98-107 Not Available [facility] ([facility]) [address] , [place], [address], 06/22/2024 18:56:02 06/22/19 25 06/22/2024 COMP METAB OLIC PANEL carbon dioxide 28.1 mmol/ L 21.0-3 2.0 Not Available [facility] ([facility]) [address] , [place], [address], 06/22/2024 18:56:02 06/22/19 25 06/22/2024 COMP METAB OLIC PANEL anion gap 12.7 Not Available [facility] ([facility]) [address] , [place], [address], 06/22/2024 18:56:02 06/22/19 25 06/22/2024 COMP METAB OLIC PANEL glucose 77 mg/dL 70-120 Not Available [facility] ([facility]) [address] , [place], [address], 06/22/2024 18:56:02 06/22/19 25 06/22/2024 COMP METAB OLIC PANEL BUN 22 mg/dL 7-18 high Not Available [facility] ([facility]) [address], [place], [address], 06/22/2024 18:56:02 06/22/19 25 06/22/2024 COMP METAB OLIC PANEL creatinine 1.0 mg/dL 0.6-1. 3 Not Available [facility] ([facility]) [address] , [place], [address], 06/22/2024 18:56:02 06/22/19 25 06/22/2024 COMP METAB [...] lockwood ing kiney funct ion. Not Available [facility] ([facility]) [address] , [place], [address], 06/22/2024 18:56:02 06/22/19 25 06/22/2024 COMP METAB OLIC PANEL total protein 6.8 g/dL 6.4-8. 2 Not Available [facility] ([facility]) [address] , [place], [address], 06/22/2024 18:56:02 06/22/19 25 06/22/2024 COMP METAB OLIC PANEL albumin 3.3 g/dL 3.4-5. 0 low Not Available [facility] ([facility]) [address] , [place], [address], 06/22/2024 18:56:02 06/22/19 25 06/22/2024 COMP METAB OLIC PANEL globulin 3.5 Not Available [facility] ([facility]) [address], [place], [address], 06/22/2024 18:56:02 06/22/19 25 06/22/2024 COMP METAB OLIC PANEL alb/glob ratio 0.9 0.7-2 Not Available [facility] ([facility]) [address], [place], [address], 06/22/2024 18:56:02 06/22/19 25 06/22/2024 COMP METAB OLIC PANEL calcium 10.2 mg/dL 8.5-10 .5 Not Available [facility] ([facility]) [address], [place], [address], 06/22/2024 18:56:02 06/22/19 25 06/22/2024 COMP METAB OLIC PANEL bilirubin total 0.30 mg/dL 0.10-1 .00 Not Available [facility] ([facility]) [address], [place], [address], 06/22/2024 18:56:02 06/22/19 25 06/22/2024 COMP METAB OLIC PANEL AST (SGOT) 15 U/L 0-37 Not Available [facility] ([facility]) [address], [place], [address], 06/22/2024 18:56:02 06/22/19 25 06/22/2024 COMP METAB OLIC PANEL ALT (SGPT) 15 U/L 0-65 Not Available [facility] ([facility]) [address], [place], [address], 06/22/2024 18:56:02 06/22/19 25 06/22/2024 COMP METAB OLIC PANEL alk phosphatase 70 U/L 46-116 Not Available [facility] ([facility]) [address], [place], [address], 06/22/2024 18:56:02 06/22/19 25 06/22/2024 SAROJ TIN ferritin, serum 125 NG/mL 3-244 Not Available [facility] ([facility]) [address] [facility], [place], [address], 06/22/2024 18:56:04 06/22/19 25 06/22/2024 VITAM IN B12 vitamin B12 1807 pg/mL 193-98 6 high *Note : Refer sissye Nick elan Micky grant. New Test Metho d in use. Not Available [facility] ([facility]) [address] [facility], [place], [address], 06/22/2024 19:18:18 06/22/19 25 06/22/2024 VITAM IN B12 folate (folic acid), serum 105.6 NG/mL 8.6-58 .9 high *Note : Refer encJavier Lockwood e. New Test Metho d in use. Not Available [facility] ([facility]) [address] [facility], [place], [address], 06/22/2024 19:18:18 02/18/20 24 02/18/2024 MRI, brain , w/wo contr ast No observ ation record ed. [facility] [address], [place], [address], 02/19/2024 08:37:30 Result Notes None recorded. Procedures Surgical History Date Name Laterality Status Provider Name and Address Organization Details Recorded Time 10/13/19 25 Venipuncture cancelled Radhika Joseph PA-C [address] [facility], [place], [address], [facility] - [place] - [place] 09/30/2024 10:48:50 06/22/19 25 Venipuncture completed Katie MORALES - [place] 06/22/2024 15:17:52 09/16/19 22 Most Recent Bone Density completed Katie ECKERT - [facility] - [place] 01/20/2024 15:25:10 12/17/19 21 completed Katie MORALES [facility] & [place] 01/20/2024 15:25:10 12/17/19 21 Date of Last Colonoscopy completed Katie MORALES [facility] & [place] 01/20/2024 15:25:10 05/18/19 21 Other completed Katie MORALES [facility] & [place] 01/20/2024 15:25:11 05/18/19 17 Other completed Katie MORALES [facility] & [place] 01/20/2024 15:25:11 03/18/20 06 Date of Last Pap Smear completed Katie MORALES [facility] & [place] 01/20/2024 15:25:10 05/18/18 98 Other completed Katie MORALES [facility] & [place] 01/20/2024 15:25:11 Imaging Results None recorded. Procedure Notes None recorded. Medical Equipment None Reported. Allergies Allergen ID Allergen Name Allergen Category Reaction Reaction Severity Criticality Documentation Date Start Date Code Code System Note Provider Name and Address Organization Details Recorded Time 475805 Substance with sulfonami de structure and antibacte rial mechanism of action (substanc e) medicatio n Not available Not available Not available 03/28/2024 64146 8003 SN[facility]ED [facility] [place] 4 14:32:03 Medications Name Sig Start Date [...] % 89 /min 143/74 mm[Hg] Katie Alarcon [facility] & [place] 5 15:14:27 Date Recorded Body temperature Oxygen saturation Oxygen saturation in Arterial blood by Pulse oximetry Heart rate Systolic And Diastolic Provider Name and Address Organization Details Last Updated DateTime 4 97.8 [degF] 95 % 95 % 73 /min 110/70 mm[Hg] Katie Trejo [facility] & [place] 4 15:38:18 Date Recorded Body height Body mass index (BMI) Body weight Body temperature Heart rate Oxygen saturation Oxygen saturation in Arterial blood by Pulse oximetry Systolic And Diastolic Provider Name and Address Organization Details Last Updated DateTime 4 157.48 cm 31.6 kg/m2 79794.4 8 g 97.2 [degF] 76 /min 90 % 90 % 113/60 mm[Hg] Cherry Workman [facility] & [place] 4 14:35:44 Date Recorded Body height Body mass index (BMI) Body weight Body temperature Oxygen saturation Oxygen saturation in Arterial blood by Pulse oximetry Heart rate Systolic And Diastolic Provider Name and Address Organization Details Last Updated DateTime 4 157.48 cm 31.6 kg/m2 96461.4 8 g 97.4 [degF] 91 % 91 % 71 /min 109/56 mm[Hg] Cherry MORALES [facility] & [place] 4 14:29:12 Social History Question Answer Notes LastModified by [email or web address] Details LastModified Time Tobacco Smoking Status Never Smoker TOMEKA Prieto [facility] & [place] 01/20/2024 15:25:11 Do You Have An Advance Directive? No [email or web address] Information not available 01/20/2024 Are You Blind Or Do You Have Difficulty Seeing? Yes [email or web address] Information not available 01/20/2024 What Is Your Level Of Caffeine Consumption? Occasional [email or web address] Information not available 06/22/2024 What Was The Date Of Your Most Recent Tobacco Screening? 01/20/2024 Information not available 01/20/2024 Are You Passively Exposed To Smoke? No [email or web address] Information not available 01/20/2024 Has Tobacco Cessation Counseling Been Provided? No Information not available 06/22/2024 Sex: Unknown Functional Status Question Answer Note LastModified by [employer] Details LastModified Time Do you use any illicit or recreational drugs? No [email or web address] Information not available 01/20/2024 Do you or have you ever used any other forms of tobacco or nicotine? No [email or web address] Information not available 06/22/2024 What is your level of alcohol consumption? 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 None [email or web address] Information not available 01/20/2024 Mental Status Question Answer Note LastModified by Organization D etails LastModified Time Do you feel stressed (tense, restless, nervous, or anxious, or unable to sleep at night)? [id number] [email or web address] Information not available 01/20/2024 Family History Relationship [...] History Condition Response Diabetes Y Obesity Y Vision or Eye Problems Y Anemia Y Arthritis Y Reflux/GERD Y High Cholesterol [...] Cherry Workman null, [place] - [facility] - [facility] 03/28/2024 14:31:48 Influenza, split virus, quadrivalent, preservative 8 completed Cherry Workman null, [place] [facility] - [place] 03/28/2024 14:31:48 Influenza, split virus, quadrivalent, preservative 9 completed Cherry Workman [place], [place] [facility] [place] 03/28/2024 14:31:48 zoster recombinant 2 completed Cherry Workman [place], [place] [facility] [place] 03/28/2024 14:31:48 zoster recombinant 1 completed Cherry Workman [place], [place] [facility] [place] 03/28/2024 14:31:48 COVID-19, mRNA, LNP-S, PF, 30 mcg/0.3 mL dose 1 completed Cherry Workman null, [place] [facility] [place] 03/28/2024 14:31:48 COVID-19, mRNA, LNP-S, PF, 30 mcg/0.3 mL dose 1 completed Cherry Leblanc null, [place] - [facility] - [place] 03/28/2024 14:31:48 Pneumococcal conjugate PCV20, polysaccharide [id number] conjugate, adjuvant, PF 3 completed Cherry Leblanc null, [place] - [facility] - [place] 03/28/2024 14:31:48 RSV, recombinant, protein subunit RSVpreF, adjuvant reconstituted, 0.5 mL, PF 3 completed Cherry Leblanc null, [place] - [facility] - [place] 03/28/2024 14:31:48 COVID-19, mRNA, LNP-S, PF, 50 mcg/0.5 mL 3 completed Cherry Leblanc null, [place] - [facility] & [place] 03/28/2024 14:31:48 pneumococcal polysaccharide PPV23 7 completed Cherry Leblanc null, [place] - [facility] - [place] 03/28/2024 14:31:48 Pneumococcal conjugate PCV 13 8 completed Cherry Leblanc null, [place] - [facility] - [place] 03/28/2024 14:31:48 Influenza, split virus, quadrivalent, PF 1 completed Cherry hull, [place] - [facility] & [place] 03/28/2024 14:31:48 Past Encounters Encounter ID Performer Location Encounter Start Date Encounter Closed Date Diagnosis/Indication Diagnosis SNOMED-CT Code Diagnosis ICD10 Code Diagnosis IMO Codes Diagnosis Note [id number] Prudencio Thornton M.D [facility] Neurology [address],[facility] [address] [place] [address] 01/20/2024 15:02:48 01/20/2024 16:12:15 Moderate cognitive impairment 460590240 R41.9 Abnormal gait 10621649 R 26.9 Chronic pain syndrome 37 2038983 G89.4 [id number] Panda Jimenes MD [facility] [address] [place] [address] 03/28/2024 14:12:10 03/28/2024 15:22:54 Leukopenia 49172580 D72.819 Labs on March 12, 2024 with normal serum electrolyt es. Creatinine 0.7. GFR greater than 60. Normal liver function tests. Normal serum calcium at 9.3. Total protein 6.3 and albumin 2.7. SPEP performed with no evidence of monoclonal spike. White blood cell count 2.5. Red blood cell count 3.28. Hemoglobin 11.7 and hematocrit 32.5. MCV 99.1. Platelet count 74032. On differenti al appropriat e percentage s [...] greater than 60. Iron defic iency anemia 30384624 D50.9 Low serum iron saturation while in the hospital. Patient previously with treatments with IV iron. Will likely repeat infusional iron therapy. Thrombocyt openic disorder 957374504 D69.6 Mild drop in platelet count. At the time of hospital stay patient was receiving antibiotic s. Will follow-up repeat labs. Patient also on Lyrica as well as Lasix. Possible medication impact. Will follow-up Hypercalcemia 83788171 E 83.52 SPEP without evidence monoclonal protein. Low albumin and total protein on labs. Will follow-up immunofixa tion. Patient was previously on calcium supplement . Patient also taking Lasix which usually decreases serum calcium. Will follow up additional labs. [id number] Panda Jimenes MD [facility] [address] [place] [address] 04/25/2024 14:09:26 04/25/2024 15:12:46 Leukopenia 59358279 D72.819 Labs on March 12, 2024 with normal serum electrolyt es. Creatinine 0.7. GFR greater than 60. Normal liver function tests. Normal serum calcium at 9.3. Total protein 6.3 and albumin 2.7. SPEP performed with no evidence of monoclonal spike. White blood cell count 2.5. Red blood cell count 3.28. Hemoglobin 11.7 and hematocrit 32.5. MCV 99.1. Platelet count 17020. On differenti al appropriat e percentage s [...] and hematocrit 30.6. MCV 100.3. Platelet count 857216. Overall improvemen t in white blood cell count on labs from March 28, 2024. Improvemen t in platelet count. Patient started on folic acid supplement ation as well as continuing on p.o. iron supplement ation. Patient returns on April 25, 2024. Repeating iron studies today. Will follow-up CBC. Iron defic iency anemia 97615741 D50.9 Low serum iron saturation while in [...] and hematocrit 30.6. MCV 100.3. Platelet count 815804. Patient started iron infusions on April 25, 2024. Will follow-up repeat labs in a few weeks. Thrombocyt openic disorder 508368097 D69.6 Mild drop in platelet count. At [...] and hematocrit 30.6. MCV 100.3. Platelet count 797655. Overall improvemen t in white blood cell count on labs from March 28, 2024. Improvemen t in platelet count. [id number] Radhika Joseph PA-C [facility] [address] [place] [address] 06/22/2024 14:25:37 06/22/2024 15:32:09 Leukopenia 07065562 D72.819 Labs on March 12, 2024 with normal serum electrolyt es. Creatinine 0.7. GFR greater than 60. Normal liver function tests. Normal serum calcium at 9.3. Total protein 6.3 and albumin 2.7. SPEP performed with no evidence of monoclonal spike. White blood cell count 2.5. Red blood cell count 3.28. Hemoglobin 11.7 and hematocrit 32.5. MCV 99.1. Platelet count 64379. On differenti al appropriat e percentage s [...] and hematocrit 30.6. MCV 100.3. Platelet count 130502. Labs on May 06, 2024 with white blood cell count 3.4. Red blood cell count 3.4. Hemoglobin 10.5 and hematocrit 32.7. Platelet count 567966. Slight improvemen t in hemoglobin compared to March 28, 2024. Folic acid repletion since last clinic visit. Will follow-up repeat labs today on June 22, 2023. Stable platelet count compared to March 2024. Will follow-up labs today. Iron defic iency anemia 45870839 D50.9 Low serum iron saturation while in [...] and hematocrit 30.6. MCV 100.3. Platelet count 260858. Patient started iron infusions on April 25, 2024. Will follow-up repeat labs today. Thrombocyt openic disorder 927154731 D69.6 Mild drop in platelet count. At [...] and hematocrit 30.6. MCV 100.3. Platelet count 554036. Labs on May 06, 2024 with white blood cell count 3.4. Red blood cell count 3.4. Hemoglobin 10.5 and hematocrit 32.7. Platelet count 540604. Slight improvemen t in hemoglobin compared to March 28, 2024. Folic acid repletion since last clinic visit. Will follow-up repeat labs today on June 22, 2023. Stable platelet count compared to March 2024. Will follow-up labs today. Family his tory of breast cancer 817399081 Z80.3 Patient mentions 1 sister had breast [...] his tory of malignant neoplasm of pancreas 907153182 Z80.0 Patient mentions 1 sister had breast cancer and another sister had pancreatic cancer. Discussed genetic testing due to family history of malignancy . Patient declined. Fatigue 45627734 R53.83 Patient has chronic fatigue. Will follow [...] (MEDICARE REPLACEMENT/ ADVANTAGE - PPO) Sherita Vega [id number] Luiza Vega 06/22/2024 2 [place]ICARE[place] Luiza Vega [id number] Luiza Vega Notes Date Note Type Note Provider Name and Address Organization Details Recorded Time 01/20/2024 text/html StrokeReported b y Patient Ms. Luiza Vega is a 68 y/o F who is [...] the past year.She saw a neurologist in [place] but did not have any testing done. Prudencio Thornton M.D [address] [place] [address], [address], [place], [address], [facility] - [facility] & [place] 01/20/2024 16:08:18 03/28/2024 text/html 68 yo F presents for evaluation of pancytopenia. Patient recently hospitalized in [facility] from March 11, 2024 until March 15, [...] and hematocrit 32.5. MCV 99.1. Platelet count 41633. On differential appropriate percentages of blood Cell [...] GFR greater than 60. Panda Jimenes MD [address], [place], [address], [place] [facility] [place] [facility] [place] 03/28/2024 17:28:19 04/25/2024 text/html 68 yo F returns for evaluation of leukopenia and anemia. Patient recently hospitalized in [facility] from March 11, 2024 until March 15, [...] and hematocrit 32.5. MCV 99.1. Platelet count 40646. On differential appropriate percentages of blood Cell [...] and hematocrit 30.6. MCV 100.3. Platelet count 149910. Overall improvement in white blood cell count on labs from March 28, 2024. Improvement in platelet count. Patient started on folic acid supplementation as well as continuing on p.o. iron supplementation. Patient returns on April 25, 2024. Repeating iron studies today. Will follow-up CBC. Panda Jimenes MD [address], [place], [address], [facility] - [facility] - [place] 04/25/2024 15:16:44 06/22/2024 text/html 69 yo F returns for evaluation of leukopenia and anemia. Patient recently hospitalized in [facility] from March 11, 2024 until March 15, [...] and hematocrit 32.5. MCV 99.1. Platelet count 30064. On differential appropriate percentages of blood Cell [...] and hematocrit 30.6. MCV 100.3. Platelet count 400828. Overall improvement in white blood cell count on labs from March 28, 2024. Improvement in platelet count. Patient started on folic acid supplementation as well as continuing on p.o. iron supplementation. Labs on May 06, 2024 with white blood cell count 3.4. Red blood cell count 3.4. Hemoglobin 10.5 and hematocrit 32.7. Platelet count 936659. Slight improvement in hemoglobin compared to March [...] follow up labs today. Radhika Joseph PA-C [address], [place], [address], [facility] - [place] - [place] 06/22/2024 16:02:16 OBGyn Episode No OBEpisode recorded.
--- OUTSIDE RECORDS SUMMARY | 2025-03-03 14:29 | XMS_ITS | Clinical Summary ---
Author Organization Healthcare Address [address] [place] [address] Care Team Providers Care Tearoom Host/Hostess Name Role Phone Nahum Ann MD Primary Care Provider [phone] Family History Medical History Relation Name Comments [...] of Treatment Not on file Care Teams Tearoom Host/Hostess Relationship Specialty Start Date End Date Nahum Ann MD [address] [place] [address] PCP - General 09/28/20
--- OUTSIDE RECORDS SUMMARY | 2025-03-03 14:29 | XMS_ITS | Data Portability ---
Author Organization [place] [facility], [facility] Address [address] [place] [address] Assessment Encounter Date Assessment Date Assessment LastModified [...] increasing pain. We have also let the [place] office know to get her approved for [...] out of her pump and catheter in [place]. [email or web address] Not available 02/18/2024 17:23:51 Plan of Treatment Reminders Order Date Submit Date Provider Last Modified By Organization Details Last Modified Time Details Appointments None recorded. Lab None recorded. Referral None recorded. Procedures intrathecal pump refill (PROC) 2023 024 [email or web address] Not available 4 18:46:52 Surgeries None recorded. Imaging None recorded. Medication Orders None recorded. Patient TargetsNo targets recorded. Patient InstructionsNo instructions recorded. Reason for Referral None Reported. Problems Name Problem SNOMED Code Status Onset Date Resolution Date Notes Provider Name and Address Organization Details Recorded Time Intervertebral disc disorder 89593229 Active 2022 GISELA CARDONA null, [place] - [facility] 3 15:19:38 Problem Notes None recorded. Procedures Surgical History Date Name Laterality Status Provider Name and Address Organization Details Recorded Time 02/17 Pump Refill completed Marty Tsang MD [address] [address], [place], [address] , [place] [facility] 4 [...] use any illicit or recreational drugs? No [email or web address] Information not available 02/18/2024 Do you or have you ever used any other forms of tobacco or nicotine? No [email or web address] Information not available 02/18/2024 What is your level of alcohol consumption? None [email or web address] Information not available 02/18/2024 Mental Status None recorded. Family History Nothing Reported. Medical History Condition Response Coronary Artery Disease N Gout N Hernia N Head Trauma/Injury Y Thyroid Problems N Depression Y COPD N Anemia Y Heart Attack ([place]) N Ulcers N Diabetes Y Anxiety Disorder N Bleeding Disorder N Arthritis Y Tuberculosis Y AIDS/HIV N Acid Reflux (GERD) N Cancer N Stroke N Asthma Y Substance Abuse N Back Injury N High Cholesterol N Hepatitis N Liver Disease N Heart Disease N Headaches N Fibromyalgia Y Hypertension N Osteoporosis N Kidney Disease N Gynecological HistoryNo gynecological history recorded. Obstetrics History GPAL:G 0 P 0 0 0 0 Past Encounters Encounter ID Performer Location Encounter Start Date Encounter Closed Date Diagnosis/Indication Diagnosis SNOMED-CT Code Diagnosis ICD10 Code Diagnosis IMO Codes Diagnosis Note [id number] Marty Tsang MD [address] BARBER [address] [place] [address] 02/18/2024 09:45:35 02/18/2024 12:22:13 Intervertebral disc disorder 28455385 M51.9 Degenerati on of lumbar intervertebral disc 14791558 M51.369 Lumbar radiculopathy 128 547545 M54.16 Lumbar spondylosis 86176 0009 M47.896 Health Concerns Section Related Observation LastModified by Organization Detai ls LastModified Time None Recorded Concern Status LastModified by Organization Details LastModified Time None Recorded Advance Directives Directive None Recorded Payers Insurance Date Sequence Insurance Name Policy Number Policy Sewell Covered Member ID Sewell Member ID Guarantor Name 07/11/2021 1 *SELF PAY* Ge orgia Fariba Vega 05/22/2022 1 [place] [id number] 2 Luiza Vega [id number] [place] Fariba Vega 01/17/2025 1 [employer] (MEDICARE REPLACEMENT/ ADVANTAGE - PPO) Sherita Vega [id number] [place] Fariba Vega Notes Date Note Type Note Provider Name and Address Organization Details Recorded Time 02/18/2024 text/html Back PainReporte d by PatientHPIFor location, patient reportspain radiating to the legs. For duration, patient reportschronic. Marty Tsang MD [address], [address], [place] - [facility] 02/18/2024 17:25:00 OBGyn Episode No OBEpisode recorded.
== END 2025-03-03 23:59 | disposition home or self-care (01) ==
PROVIDERS: PCP Family Medicine; Visit Provider Nurse Practitioner Family
DX: Z51.81 Encounter for therapeutic drug level monitoring (principal); Z79.891 Long term (current) use of opiate analgesic
CPT/HCPCS: 36415

== ENCOUNTER 2025-03-03 14:41 | Outpatient (CLI) | payer MEDICARE, SELFPAY | END 2025-03-03 23:59 | disposition home or self-care (01) | LOC: LAB 14:44 | PROVIDERS: PCP Family Medicine; Visit Provider Nurse Practitioner Family | DX: Z79.891 Long term (current) use of opiate analgesic (principal) ==

== ENCOUNTER 2025-04-25 14:13 | Day surgery (SDC) | payer MEDICARE, SELFPAY ==
[2025-04-25 14:20] VITALS: BP 109/73; PULSE 85; RESP 18; O2SAT 92; BMI 27.4
[2025-04-25] MEDS: DEXAMETHASONE 10MG/ML 1ML VIAL 10 MG (14:53)
[2025-04-25] MEDS: BUPIVACAINE 0.25% 10ML INJ 25 MG IJ (14:54)
[2025-04-25] MEDS: LIDOCAINE 1% 5ML PF VIAL 5 ML (14:54)
[2025-04-25 14:57] VITALS: BP 109/73; PULSE 85; RESP 18; O2SAT 92
--- NOTE | 2025-04-25 14:58 | EXP.PAIN.PRO ---
Procedure Date: 04/25/25 Time: 14:45 Anesthesiologist:: Esteban Gale CRNA Complications:: None Pre-procedure Diagnosis:: DJD right shoulder. Chronic right shoulder pain. Post-procedure Diagnosis:: Same. Indications for Procedure:: Patient is a pleasant 69-year-old female who comes to our clinic today for a right intra-articular shoulder injection of cortisone local anesthetic. Patient describes right shoulder pain as constant, dull, aching. She has limited range of motion of the right arm secondary to right shoulder pain. She rates her pain 6/10. Procedure Details:: Procedure Details: Right shoulder intra-articular injection Informed consent was obtained risk and benefits of the procedure were explained to the patient. Patient was taken to the procedure room. The right shoulder was prepped using ChloraPrep. A 25-gauge needle was used posteriorly to inject 10 mL bupivacaine 0.25% and 10 mg of dexamethasone. Patient tolerated procedure well with no complications. Plan and Disposition:: Patient was discharged without incident.
[2025-04-25 15:01] VITALS: BP 151/85; PULSE 72; RESP 16; O2SAT 93
[2025-04-25 15:02] VITALS: BP 109/73; PULSE 85; RESP 18; O2SAT 92
== END 2025-04-25 15:01 | disposition home or self-care (01) ==
PROVIDERS: PCP Family Medicine; Visit Provider Nurse Anesthetist, Certified Registered
DX: M19.011 Primary osteoarthritis, right shoulder (principal); J45.909 Unspecified asthma, uncomplicated; F32.A Depression, unspecified; M79.7 Fibromyalgia; E11.9 Type 2 diabetes mellitus without complications; Z87.11 Personal history of peptic ulcer disease; Z98.1 Arthrodesis status; Z83.3 Family history of diabetes mellitus; Z88.2 Allergy status to sulfonamides; Z79.899 Other long term (current) drug therapy; M19.90 Unspecified osteoarthritis, unspecified site
CPT/HCPCS: 20610; J0665; J1100; J2003

== ENCOUNTER 2025-05-06 12:16 | Observation (INO) | payer MEDICARE, SELFPAY ==
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
--- OUTSIDE RECORDS SUMMARY | 2024-03-30 11:15 | XMS_ITS ---
Author Organization [facility] Address [address] [facility] [address] [place] [id number] Care Team Providers Care Caddy Packer Name Role Phone Anni Candelaria Primary Care Provider [phone] Results Component Value Reference Range Notes TEN-stool panel Reviewed date:04/07/2024 09:51:51 AM Interpretation:Abnormal Performing Lab: Notes/Report: Abnormal TEN-stool panel Reviewed date:04/07/2024 09:51:51 AM Interpretation:Abnormal Performing Lab: Notes/Report: Abnormal REASON FOR VISIT stool sample Medications Medication SIG (Take, Route, Frequency, Duration) Notes Start Date End Date Status Doxycycline Monohydrate 100 MG 1 capsule Orally every 12 hrs; Duration: 10 day(s) 03/04/2024 Active Silvadene 1 % 1 application Pharmaceutical Detailer ally Once a day 03/25/2024 Active Sodium Bicarbonate 650 MG 2 tabs Orally once daily; Duration: 90 days 11/27/2023 Active Furosemide 20 MG 1 tablet Orally Once a day; Duration: 90 days Active Cymbalta 60 MG 2 cap(s) orally once a day; Duration: 90 days Active rOPINIRole HCl 2 MG TAKE 1 TABLET EVERY DAY AT BEDTIME; Duration: 90 Active Fluticasone Propionate 50 MCG/ACT 1 spray(s) in each nostril once a day 01/17/2021 Active Meloxicam 15 MG 1 tablet Orally Once a day; Duration: 90 days Active Welchol 625 MG 3 tablets with meals Orally Twice a day; Duration: 30 day(s) Active Breo Ellipta 200-25 MCG/ACT 1 puff(s) inhaled once a day; Duration: 90 days Active Vitamin D3 250 MCG (98469 UT) 1 cap(s) orally 3 times a week; Duration: 30 days 10/28/2018 Active Tylenol 325 MG 1 cap(s) orally 3 ti mes a day Active ProAir Digihaler 108 (90 Base) MCG/ACT 2 puff(s) inhaled 4 times a day as needed; Duration: 90 days Active Lyrica 100 MG 1 cap(s) orally Four times a day Active Imodium A-D DIRECTED Active Zinc 50 MG 1 tablet Orally Once a day; Duration: 30 day(s) Active Calcium 600 MG 1 tablet with meals Orally Twice a day; Duration: 30 day(s) Active B12 5000 MCG as directed Sublingual Active traMADol HCl 50 MG 1 tablet as needed Orally Twice a day Active [place] 3 1000 MG 1 capsule Orally Thr ee times a day; Duration: 30 day(s) Active Clindamycin HCl 300 MG 1 capsule Orally every 12 hrs; Duration: 7 day(s) Not-Taking Zegerid 20-1100 MG 1 capsule on an empt y stomach Orally Once a day; Duration: 30 day(s) Active Encounters Encounter Location Date Provider Diagnosis [facility] [address] [phone] 03/30/2024 Anni Candelaria Acute diarrhea R19.7 Assessments Encounter Date Diagnosis (ICD Code) Assessment Notes Treatment Notes Treatment Clinical Notes Section Notes 03/30/2024 Acute diarrhea (ICD-10 - R19.7) Plan Of Treatment No Information Progress Notes * Luiza NEGRONDOB:1955 (69 yo F)Acc No.[id number]:03/30/2024 Patient: Luiza TAPIA Provider: CYNTHIA Mitchell :1955 A ge:68 Y S ex:Female Date:03/30/2024 Address:[address] [place] [id number] Subjective: * Chief Complaints: * 1 . Stool sample. * Medical History: * Medications: T aking Zegerid 20-1100 MG Capsule 1 capsule on an empty stomach Orally Once a day , Taking Zinc 50 MG Tablet 1 tablet Orally Once a day , Taking Calcium 600 MG Tablet 1 tablet with meals Orally Twice a day , Taking [place] 3 1000 MG Capsule 1 capsule Orally [...] needed , Taking Vitamin D3 250 MCG (80547 UT) Capsule 1 cap(s) orally 3 times [...] 1 capsule Orally every 12 hrs , Taking Silvadene 1 % Cream 1 application Externally Once a day , Not-Taking Clindamycin HCl 300 MG Capsule 1 capsule Orally every 12 hrs , Medication List reviewed and reconciled with the patient Objective: * Vitals: Assessment: * Assessment: 1. A cute diarrhea - R19.7 Plan: * Treatment: * Images: Billing Information: * Visit Code: * Procedure Codes: * Electronic signature of CYNTHIA Moncada on 05/06/2025 at 12:26 PM EST Sign off status: Pending * Provider: CYNTHIA Mitchell Date: 05/30/2023 Generated for Nigel corbin/Yue/[place]lyn on: 07/07/2024 12:26 PM EST
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
--- OUTSIDE RECORDS SUMMARY | 2024-11-04 08:20 | XMS_ITS ---
Author Organization [facility] Address [address] [facility] [address] [place] [id number] Care Team Providers Care Ingredient Scaler Name Role Phone Anni Candelaria Primary Care Provider Results Component Value Reference Range Notes Urinalysis - Inhouse Reviewed date:11/09/2024 12:07:11 PM Interpretation: Performing Lab: Notes/Report: Color/Clarity dark yellow Leuk 1+ Nitrite pos Urobili 3.2 Protein 1+ pH 5.5 Blood neg Sp. Gr. 1.020 Ketone neg Bili neg Gluc neg P-Culture, Urine Reviewed date:11/08/2024 12:57:12 AM Interpretation: Performing Lab: Notes/Report: Test performed by [facility] [address] [place] [address] , [address], [place] [address] Link Uribe MD, Caseworker Intake CLIA: [id number] Specimen Source Urine - Void Culture, Urine See Below See Microbiol ogy Report Escherichia coli >100,000 CFU/ml Escherichia coli Sensitivity Panel See Below ____ Organism E. coli Antibiotic INTERP ____ Amikacin S Ampicillin R Aztreonam S Cefepime S Cefoxitin S Ceftazidime S Ceftriaxone S Cefuroxime S Ciprofloxacin R Ertapenem S Gentamicin R Imipenem S Levofloxacin R Meropenem S Nitrofurantoin S Piperacillin/Tazo S Tetracycline R Tobramycin R Trimeth/Sulfa S ___ S=SUSCEPTIBLE I=INTERMEDIATE R=RESISTANT REASON FOR VISIT Urine Sample Problems Problem Type SNOMED Code ICD Code Onset Dates Problem Status W/U Status Risk Notes Problem Multi-infarct dementia, uncomplicated (22629221) Vascular dementia, unspecified dementia severity, unspecified whether behavioral, psychotic, or mood disturbance or anxiety (F01.50) Active confirmed Problem COPD - Chronic obstructive pulmonary disease (39183632) Chronic obstructive pulmonary disease, unspecified COPD type (J44.9) Active confirmed Problem Aneurysm (398052551) Aneurysm of unspecified site (I72.9) Active confirmed Problem Hypothyroidism (06861555) Hypothyroidism, unspecified type (E03.9) Active confirmed Problem Hyperlipidaemia (80288387) Hyperlipidemia, unspecified hyperlipidemia type (E78.5) Active confirmed Problem Insomnia (610546300) Insomnia, unspecified type (G47.00) Active confirmed Problem Essential hypertension (59681150) Essential (primary) hypertension (I10) Active confirmed Encounters Encounter Location Date Provider Diagnosis [facility] [address] [facility] [address] [id number] 11/04/2024 Anni Candelaria Dysuria R30.0 ; Asth ma, unspecified asthma severity, unspecified whether complicated, unspecified whether persistent J45.909 ; Vascular dementia, unspecified dementia severity, unspecified whether behavioral, psychotic, or mood disturbance or anxiety F01.50 ; Respiratory failure with hypoxia, unspecified chronicity J96.91 ; Chronic obstructive pulmonary disease, unspecified COPD type J44.9 ; Aneurysm of unspecified site I72.9 ; Hypothyroidism, unspecified type E03.9 ; Hyperlipidemia, unspecified hyperlipidemia type E78.5 ; Insomnia, unspecified type G47.00 and Essential (primary) hypertension I10 Assessments Encounter Date Diagnosis (ICD Code) Assessment Notes Treatment Notes Treatment Clinical Notes Section Notes 11/04/2024 Dysuria (ICD-10 - R30.0) 11/04/2024 Asthma, unspecified asthma severity, unspecified whether complicated, unspecified whether persistent (ICD-10 - J45.909) 11/04/2024 Vascular dementia, unspecified dementia severity, unspecified whether behavioral, psychotic, or mood disturbance or anxiety (ICD-10 - F01.50) 11/04/2024 Respiratory failure with hypoxia, unspecified chronicity (ICD-10 - J96.91) 11/04/2024 Chronic obstructive pulmonary disease, unspecified COPD type (ICD-10 - J44.9) 11/04/2024 Aneurysm of unspecified site (ICD-10 - I72.9) 11/04/2024 Hypothyroidism, unspecified type (ICD-10 - E03.9) 11/04/2024 Hyperlipidemia, unspecified hyperlipidemia type (ICD-10 - E78.5) 11/04/2024 Insomnia, unspecified type (ICD-10 - G47.00) 11/04/2024 Essential (primary) hypertension (ICD-10 - I10) Plan Of Treatment No Information Progress Notes * Luiza NEGRONDOB:1955 (69 yo F)Acc No.[id number]:11/04/2024 Patient: Luiza TAPIA Provider: CYNTHIA Mitchell :1955 A ge:69 Y S ex:Female Date:11/04/2024 Address:[address] [place] [id number] Subjective: * Chief Complaints: * 1 . Urine Sample. * Medical History: Objective: * Vitals: Assessment: * Assessment: 1. D ysuria - R30.0 2 . A sthma, unspecified asthma severity, unspecified whether complicated, unspecified whether persistent - J45.909 3 . V ascular dementia, unspecified dementia severity, unspecified whether behavioral, psychotic, or mood disturbance or anxiety - F01.50 4 . R espiratory failure with hypoxia, unspecified chronicity - J96.91 5 . C hronic obstructive pulmonary disease, unspecified COPD type - J44.9 6 . A neurysm of unspecified site - I72.9 7 . H ypothyroidism, unspecified type - E03.9 8 . H yperlipidemia, unspecified hyperlipidemia type - E78.5 9 . I nsomnia, unspecified type - G47.00 1 0. E ssential (primary) hypertension - I10 Plan: * Treatment: Value Reference Range C ulture, Urine See Below - * S pecimen Source Urine - Void - * S ensitivity Panel See Below - * E scherichia coli >100,000 CFU/ml Escherichia coli - * Anni Candelaria 11/08/2024 1 2:57:04 AM EDT >see TE ?LAB: Urinalysis - Inhouse (Collection Date & Time - 11/04/2024)* Value Reference Range C olor/Clarity dark yellow * L euk 1+ * N itrite pos * U robili 3.2 * P rotein 1+ * p H 5.5 * B lood neg * S p. Gr. 1.020 * K etone neg * B ramon neg * G ari neg * Karoline Amaral 11/04/2024 02:1 3:14 PM EDT > Loree Jones 11/09/2024 12:07:04 PM EDT > See phone encounter * Procedure Codes: 8 1002 Urinalysis, no micro * Images: Billing Information: * Visit Code: * Procedure Codes: 78215 Urinalysis, no micro. * Electronic signature of CYNTHIA Moncada on 05/06/2025 at 12:26 PM EST Sign off status: Pending * Provider: CYNTHIA Mitchell Date: 0 11/04/2024 Generated for Nigel corbin/Yue/eTransmitting on: 1 07/07/2024 12:26 PM EST
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
--- OUTSIDE RECORDS SUMMARY | 2025-05-05 06:45 | XMS_ITS ---
Author Organization [facility] Address [address] [place] [id number] Care Team Providers Care Director Advertising Name Role Phone Bari Anni Primary Care Provider REASON FOR VISIT flu shot Immunizations Vaccine Route Administration Date Status Comme nts Fluzone High Dose (65yr and older) IM Intramuscular 05/05/2025 Administered Encounters Encounter Location Date Provider Diagnosis [place] [address] [place] [id number] 05/05/2025 Anni Candelaria Immunization due Z23 Assessments Encounter Date Diagnosis (ICD Code) Assessment Notes Treatment Notes Treatment Clinical Notes Section Notes 05/05/2025 Immunization due (ICD-10 - Z23) Plan Of Treatment No Information Progress Notes * Luiza NEGRONDOB:1955 (69 yo F)Acc No.[id number]:05/05/2025 Patient: Luiza TAPIA Provider: CYNTHIA Mitchell :1955 A ge:69 Y S ex:Female Date:05/05/2025 Address:[address] [place], [place] [address] Subjective: * Chief Complaints: * 1 . Flu shot. * Medical History: Objective: * Vitals: Assessment: * Assessment: 1. I mmunization due - Z23 (Primary) Plan: * Treatment: * Immunizations: Fluzone High Dose (65yr and older) : 0.5 mL (Route: Intramuscular) given by Yasmine Paul on Left Deltoid (Immunization due) * Images: Billing Information: * Visit Code: * Procedure Codes: * Electronic signature of CYNTHIA Moncada on 05/06/2025 at 12:26 PM EST Sign off status: Pending * Provider: CYNTHIA Mitchell Date: 1 07/06/2024 Generated for Nigel corbin/Yue/Sherlyn on: 1 07/07/2024 12:26 PM EST
[2025-05-06] VITALS (11 sets, daily range): BP systolic 94–158; BP diastolic 58–91; PULSE 64–88; RESP 11–17; TEMP 36.8–37; O2SAT 85–96; BMI 27.3; BMI 28.4
--- NOTE | 2025-05-06 12:15 | HMH.EDGENADL ---
Discharge Plan Disposition Patient Disposition: Admitted Condition: Good Prescriptions Prescriptions: No Action pregabalin [Lyrica] 100 mg capsule 100 mg PO QIDP PRN (Reason: neuropathic pain) Qty: 120 2RF tramadol 50 mg tablet 50 mg PO BID PRN (Reason: pain) Qty: 60 2RF duloxetine 60 MG capsule,delayed release(DR/EC) 120 mg PO DAILY hydromorphone (PF)-0.9 % NaCl 1 MG/ML syringe 0.5 mg IT CONT Rx Instructions: MEDICATION DELIVERED VIA INTRATHECAL PAIN PUMP. TOTAL VOLUME OF PUMP IS 20ML ondansetron 4 mg tablet,disintegrating 4 mg PO Q8H PRN (Reason: nausea and vomiting) 4 Days Qty: 12 0RF ropinirole 2 mg tablet 2 mg PO HSP PRN (Reason: restless leg syndrome) magnesium oxide 400 mg (241.3 mg magnesium) tablet 400 mg PO BID Patient Comments: TAKE ONE TABLET BY MOUTH TWICE DAILY ferrous sulfate [FeroSul] 325 mg (65 mg iron) tablet 325 mg PO DAILY Patient Comments: TAKE ONE TABLET BY MOUTH EVERY DAY pantoprazole 40 mg Tablet,Delayed Release (Dr/Ec) 40 mg PO HS Qty: 1 0RF Referrals Follow up/Referrals: George Jacob MD [Primary Care Provider, Medical] - See instructions Clinical Impressions Clinical Impression: Hypoxia, Altered mental status Print Language Print Language: Tajik Discharge ED Provider: Rolando Hassan JR General Adult HPI General Chief complaint: Weakness Stated complaint: lethargy, low HR Time Seen by Provider: 05/06/25 12:19 Mode of Arrival: EMS Description of Symptoms (Recalled from ER Triage Doc. by RN): Arrives from home via EMS History of Present Illness HPI narrative: 69-year-old female with history of electrolyte abnormalities, peptic ulcer, history of sepsis, history of UTI, arthritis, diabetes, pancreatitis, no current blood thinners, no home oxygen requirement. Presents to the emergency department from home via EMS. Started complaining of headache last night and worsening confusion and altered mental status. No home oxygen requirement. Patient denies chest pain, shortness breath, cough, leg swelling, abdominal pain, or dysuria. No further complaints at this time. Requiring supplemental oxygen upon arrival. On Dilaudid pain pump at home. Also on tramadol. Related Data Home Medications ?Medication ?Instructions ?Recorded ?Confirmed duloxetine 60 mg capsule,delayed 120 mg PO DAILY 09/09/17 05/05/25 release hydromorphone (PF) 1 mg/mL in 0.9% 0.5 mg intrathecal CONT CHRONIC 12/26/21 05/05/25 sodium chloride intravenous syringe PAIN ropinirole 2 mg tablet 2 mg PO HSP PRN restless leg 03/20/22 05/05/25 syndrome ferrous sulfate 325 mg (65 mg 325 mg PO DAILY 12/03/24 05/05/25 iron) tablet (FeroSul) magnesium oxide 400 mg (241.3 mg 400 mg PO BID 12/03/24 05/05/25 magnesium) tablet Previous Rx's ?Medication ?Instructions ?Recorded ondansetron 4 mg disintegrating 4 mg PO Q8H PRN nausea and 12/13/22 tablet vomiting 4 days #12 tabs pantoprazole 40 mg tablet,delayed 40 mg PO HS #1 tab 12/09/24 release pregabalin 100 mg capsule (Lyrica) 100 mg PO QIDP PRN neuropathic 05/05/25 pain #120 caps tramadol 50 mg tablet 50 mg PO BID PRN pain #60 tabs 05/05/25 Allergies Allergy/AdvReac Type Severity Reaction Status Date / Time Sulfa (Sulfonamide Allergy Unknown NA-NAUSEA/V Verified 05/05/25 10:59 Antibiotics) (SULFA OMITING (SULFONAMIDE ANTIBIOTICS)) [facility] Disclaimer: The information contained in this section may have been updated after the patient was seen, as this information can be updated by other users. Medical History Pleural effusion on right Acute respiratory failure with hypoxia On mechanically assisted ventilation Implantable intrathecal infusion pump present History of renal dialysis Peptic ulcer disease Asthma Arthritis Anemia Fibromyalgia Type 2 diabetes mellitus History of TB (tuberculosis) Chronic pain Depression Iron deficiency anemia Cervical (neck) region somatic dysfunction Degenerated intervertebral disc Surgical History History of laparotomy History of colonoscopy History of esophagogastroduodenoscopy (EGD) History of cervical spinal surgery Family History Other Arthritis Cancer Coronary artery disease Diabetes Hypertension Social History Smoking Status: Never smoker second hand exposure: No alcohol intake: never substance use type: denies use current occupational status: retired Travel in the last 8 weeks?: None household members: none housing: house current occupational exposures/hazards: No caffeine: Yes Have you lived/traveled outside [place] in past 30 days?: No Contact w/someone who lives/traveled outside US past 30 days?: No Exposure to someone with infectious disease in past 14 days?: No Do you have a fever (greater than 100.4 F or 38 C)?: No Have you tested positive for COVID-19?: No Exposed to someone with COVID-19 in past 14 days?: No Do you have a sore throat?: No Do you have a cough?: No Do you have any weakness?: No Do you have any diarrhea?: No Are you experiencing any unusual bleeding?: No Do you have any muscle aches/pain?: No Do you have any abdominal pain?: No Are you experiencing loss of taste or smell?: No Other Medical History Have you received the Flu Vaccine for this season: No Have you received the Pneumonia Vaccine: Yes ROS Obtained: Yes All systems reviewed & no additional complaints except as documented and Yes Systems reviewed as appropriate & no additional complaints except as documented Constitutional Constitutional: Reports system reviewed and no additional complaints, except as documented, Reports as per HPI, Reports weakness (Confusion, altered mental status) and Reports other (Weakness, altered mental status) Eyes Eyes: Reports system reviewed and no additional complaints, except as documented and Reports as per HPI ENT Ears, Nose, Mouth, and Throat: Reports system reviewed and no additional complaints, except as documented and Reports as per HPI Cardiovascular Cardiovascular: Denies chest pain Respiratory Respiratory: Denies shortness of breath and Denies cough Gastrointestinal Gastrointestingal: Denies abdominal pain Genitourinary Female Genitourinary: Denies dysuria Musculoskeletal Musculoskeletal: Reports system reviewed and no additional complaints, except as documented and Reports as per HPI Neurologic Neurologic: Reports weakness (Confusion, altered mental status) Physical Exam General General appearance: alert and in no apparent distress Head Head exam: atraumatic and normocephalic Eye Eye exam: Present normal appearance, PERRL and EOMI ENT ENT exam: Present normal exam and normal oropharynx Neck Neck exam: Present normal inspection Chest Chest inspection: Present normal inspection Respiratory Respiratory exam: Present normal lung sounds bilaterally; Absent respiratory distress Cardiovascular Cardiovascular exam: Present regular rate and normal rhythm Abdominal Exam Abdominal exam: Present soft; Absent tenderness Extremities Exam Extremities exam: Present normal inspection Back Exam Back exam: Present normal inspection Neurological Exam Neurological exam: Present alert and oriented X3 Psychiatric Psychiatric exam: Present normal affect Skin Skin exam: Present warm and dry Medical Decision Making Medical Records Screening: Per USPSTF and CDC recommendations, given the prevalence of disease in our region, it is our hospital?s policy to screen for HIV and viral Hepatitis for all patients aged 18 and over and those with ongoing risk factors. Don Inquiry Pt receiving controlled substance: No Vital Signs: 05/06/25 11:56 05/06/25 12:15 05/06/25 12:31 Temperature 98.6 F Temperature Source Axillary Pulse Rate 82 80 Pulse Rate [Right Radial] 86 Respiratory Rate 15 14 15 Blood Pressure 158/91 H 139/79 Blood Pressure [Right Arm] 158/91 H Blood Pressure Mean [Right Arm] 113 Blood Pressure Source [Right Arm] Automatic Cuff Blood Pressure Position [Right Arm] Sitting 02 Sat by Pulse Oximetry 85 L 89 L 93 L Oxygen Delivery Method Room Air Nasal Cannula Nasal Cannula Oxygen Flow Rate (LPM) 2 2 05/06/25 13:00 05/06/25 13:37 05/06/25 14:00 Temperature Temperature Source Pulse Rate 88 79 70 Pulse Rate [Right Radial] Respiratory Rate 13 15 Blood Pressure 151/78 H 108/66 L Blood Pressure [Right Arm] Blood Pressure Mean [Right Arm] Blood Pressure Source [Right Arm] Blood Pressure Position [Right Arm] 02 Sat by Pulse Oximetry 90 L 93 L 93 L Oxygen Delivery Method Nasal Cannula Nasal Cannula Nasal Cannula Oxygen Flow Rate (LPM) 2 2 2 Lab Data Lab Results 05/06/25 12:19: VBG pH 7.32, VBG pCO2 56.2 H, VBG pO2 36.0, VBG HCO3 28.2, VBG Total CO2 30.0 H, VBG O2 Saturation 66.9, VBG Base Excess 2.1, VBG Lactic Acid 1.7 05/06/25 13:02: WBC 3.5 L, RBC 5.26, Hgb 16.1, Hct 47.6 H, MCV 90.5, MCH 30.6, MCHC 33.8, RDW 14.6, Plt Count 119 L, MPV 8.6, Neut % (Auto) 83.6 H, Lymph % (Auto) 7.2 L, [place] % (Auto) 8.6, Eos % (Auto) 0.0 L, Baso % (Auto) 0.3, Neut # (Auto) 2.9, Lymph # (Auto) 0.3 L, [place] # (Auto) 0.3, Eos # (Auto) 0.0, Baso # (Auto) 0.0, Total Counted 100, Neutrophils % (Manual) 81 H, Lymphocytes % (Manual) 9 L, Monocytes % (Manual) 9, Eosinophils % (Manual) 1, Platelet Estimate Slight decrease, RBC Morphology Normal, Sodium 134 L, Potassium 4.3, Chloride 93 L, Carbon Dioxide 31 H, Anion Gap 14.3, BUN 13, Creatinine 0.80, Estimated Creat Clear 61, Estimated GFR 71, Est GFR ( Amer) 86, Glucose 119 H, Calcium 9.7, Total Bilirubin 1.1, AST 55 H, ALT 26, Alkaline Phosphatase 81, Total Protein 9.4 H D, Albumin 5.3 H, Globulin 4.1 H, Albumin/Globulin Ratio 1.3 05/06/25 13:02 05/06/25 13:02 Orders (Tests/Meds): ED MEDICATIONS Generic Name Dose Route Start Last Admin Trade Name Freq PRN Reason Stop Dose Admin Acetaminophen 650 mg 05/06/25 14:01 Acetaminophen 325mg Tab PO 06/05/25 14:00 Q4HP PRN Fever or Mild Pain (1-3) Discontinued Medications Generic Name Dose Route Start Last Admin Trade Name Freq PRN Reason Stop Dose Admin Acetaminophen 1,000 mg 05/06/25 12:19 05/06/25 12:26 Acetaminophen 500mg Tab PO 05/06/25 12:20 1,000 mg ONCE ONE Administration ORDERS Category Date Time Status CT head/brain wo con Stat Cat Scan 05/06/25 12:19 Completed XR chest portable Stat Exams 05/06/25 12:19 Completed Ammonia Stat Lab 05/06/25 14:01 Ordered Complete Blood Count Auto Diff AMLAB Lab 05/07/25 06:00 Ordered Complete Blood Count Auto Diff Stat Lab 05/06/25 13:02 Completed Comprehensive Metabolic Panel AMLAB Lab 05/07/25 06:00 Ordered Comprehensive Metabolic Panel Stat Lab 05/06/25 13:02 Completed Magnesium AMLAB Lab 05/07/25 06:00 Ordered Mini Respiratory Panel Stat Lab 05/06/25 13:46 Received Urinalysis and Microscopic Stat Lab 05/06/25 13:41 Received Blood Culture Stat Micro 05/06/25 13:16 ORD Venous Blood Gas Stat RT 05/06/25 12:19 Completed Medical Decision Narrative: 61-year-old female presenting for altered mental status, headache. Requiring submental oxygen on arrival. Denies any chest pain or shortness of breath. No cough. Overall in no acute distress. No history of COPD. No blood thinners. No neck stiffness. No fever. Low concern for meningitis or encephalitis at this time. EKG reviewed and independently interpreted, significant for normal sinus rhythm, no elevation, no STEMI. pH within normal limits on VBG. pH is on the lower end and CO2 was on the higher end. Could maybe benefit from as needed BiPAP or lowering dose of opioids at home. Chest x-ray and CT head shows no acute findings. CBC and CMP unremarkable. Patient likely needs medication adjustment as polypharmacy is on the differential. Urinalysis still pending. Could be UTI causing altered mental status. Patient likely needs oxygen at home. I consulted hospital medicine for admission. Critical Care Critical Care Time Critical Care Time: No
--- NOTE | 2025-05-06 12:19 | XR_ITS ---
PROCEDURE INFORMATION: Exam: XR Chest Exam date and time: 05/06/2025 12:47 PM Age: 69 years old Clinical indication: Dyspnea; Additional info: Hypoxia, AMS TECHNIQUE: Imaging protocol: Radiologic exam of the chest. Views: 1 view. COMPARISON: CR XR CHEST PORTABLE 12/09/2024 10:01 AM FINDINGS: Lungs: The visualized lungs are clear. Pleural spaces: Unremarkable. No pleural effusion. No pneumothorax. Heart/Mediastinum: The heart size is not well assessed. Diaphragm: There is elevation of the right hemidiaphragm again identified. Bones/joints: Unremarkable. IMPRESSION: No acute findings.
--- NOTE | 2025-05-06 12:19 | CT_ITS ---
PROCEDURE INFORMATION: Exam: CT Head Without Contrast Exam date and time: 05/06/2025 12:44 PM Age: 69 years old Clinical indication: Pain; Headache; Additional info: AMS, headache TECHNIQUE: Imaging protocol: Computed tomography of the head without contrast. Radiation optimization: All CT scans at this facility use at least one of these dose optimization techniques: automated exposure control; mA and/or kV adjustment per patient size (includes targeted exams where dose is matched to clinical indication); or iterative reconstruction. COMPARISON: CT HEAD/BRAIN WO CON 03/25/2021 12:44 PM FINDINGS: Brain: There is no evidence of acute parenchymal hemorrhage, extra-axial collection, or acute infarction. There is no mass effect, midline shift, or downward herniation. Cerebral ventricles: No ventriculomegaly. Paranasal sinuses: Visualized sinuses are unremarkable. No fluid levels. Mastoid air cells: Visualized mastoid air cells are well aerated. Bones: Unremarkable. No acute fracture. Soft tissues: Unremarkable. IMPRESSION: No acute intracranial abnormality.
--- NOTE | 2025-05-06 12:25 | ECG_ITS ---
APPROVED REPORT Exam: Resting ECG HR:74 bpm ECG Measurements Heart Rate 74 AXES MD 195 P 61 QRSd 91 QRS -6 QT 369 T 78 QTc 397 Conclusion SINUS RHYTHM POSSIBLE ANTERIOR MYOCARDIAL INFARCTION , OF INDETERMINATE AGE [30 ms Q WAVE IN V3/V4, OR R < 0.2 mV IN V4] POSSIBLE INFERIOR MYOCARDIAL INFARCTION , OF INDETERMINATE AGE [30 ms Q WAVE IN II/aVF] ABNORMAL ECG UNCONFIRMED REPORT Electronically signed by : MANI NEWELL, 05/07/2025 05:41:02
[2025-05-06] MEDS: ACETAMINOPHEN 500MG TAB 1000 MG PO (12:26)
--- OUTSIDE RECORDS SUMMARY | 2025-05-06 12:26 | XMS_ITS | Clinical Summary ---
Author Organization [facility] 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 Active [id number] -DPA-fish oil 1,050-1,200 mg Cap per capsule [...] Date Lino rded Speak language other than Uzbek at home Not on file 08/04/2023 Want [...] 50+ years Completed , 04/29/2018, 03/03/2017 Insurance [facility] MEDICARE PPO Care Teams Dehairing Machine Tender Relationship Specialty Start Date End Date Anni Candelaria PA [address] [place] [address] PCP - General Physician Plaque Maker 08/06/23
--- OUTSIDE RECORDS SUMMARY | 2025-05-06 12:26 | XMS_ITS | Patient Health Record ---
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 Role Phone Anni Candelaria Primary Care Provider [phone] George Jacob Unavailable [phone] HannaHunterWendie Unavailable [phone] Allergies Allergen (clinical drug ingredient) Drug/Non Drug Allergy documented on EMR Reaction Allergy Type Onset Date Status rosuvastatin Crestor muscle pain Drug Allergy Ac tive Sulfamethoxazole vomiting Drug Allergy Active Results Component Value Reference Range Notes P-Vitamin B12 Reviewed date:11/03/2024 03:13:20 PM Interpretation:>2000 Performing Lab: Notes/Report: Test performed by [facility] [employer] [address] [place] [address] , [address], [place] [address] Link Uribe MD, Printing Machine Mechanic CLIA: [id number] Vitamin B12 >2000 232-1245 pg/mL Glycohemoglobin A1c (in hous e) Reviewed date:11/03/2024 03:13:20 PM Interpretation:4.8% Performing Lab: Notes/Report: 4.8% glycohemoglobin 4.8% 5 - 6.5 % CBC Venipuncture (in house) Reviewed date:11/03/2024 03:13:20 [...] - 38 platlet 202 100 - 400 H-CMP Reviewed date:12/05/2024 04:32:53 PM Interpretation: Performing Lab: Notes/Report: NA 136 136-145 mmol/L K 4.5 3.5-5.1 mmoL/L CL 109 98-107 mmol/L CO2 24 22.0-30.0 mmol/L GAP 7.5 5-15 mEq/L BUN 17 7-17 mg/dl CREATT 0.90 0.52-1.04 mg/dl CRCLE 63 50-200 mL/min GFRAA 75 >60 ML/MIN EGFR 62 >60 ml/min GLU 110 74-100 mg/dl CA 10.5 8.4-10.2 mg/dl BILIT 0.4 0.2-1.3 mg/dl AST 38 14-36 U/L Delta: 30 on 12/02/24 ALT 18 12-78 U/L TP 5.3 6.3-8.2 g/dl Delta: 7.6 on 12/02/24 ALB 2.8 3.5-5.0 g/dl Delta: 3.9 on 12/02/24 GLOB 2.5 1.3-3.2 g/dL AGRATIO 1.1 1.1-1.8 ALP 43 38-126 U/L H-CBC Reviewed date:12/05/2024 04:32:53 PM Interpretation: Performing Lab: Notes/Report: WBC 10.3 4.8-10.8 K/mm3 RBC 3.24 4.20-5.40 M/mm3 HGB 9.9 12.2-16.2 g/dL Delta: 11.5 o n 12/03/24 HCT 30.4 37.0-47.0 % MCV 93.8 81-99 fl MCH 30.6 27.0-31.2 pg MCHC 32.6 31.8-35.4 g/dL RDW-SD 50.1 RDW 14.5 11.5-17.5 % PLT 222 142-424 K/mm3 Delta: 306 on 12/03/24 MPV 9.4 7.4-10.4 fl NE% 80.2 37.0-80.0 % LY% 7.8 10-50 % MO% 4.3 1.7-9.3 % EO% 6.6 0.1-12.0 % BA% 0.3 0.1-2.0 % NRBC% 0 IG% 0.8 NE# 8.2 1.8-7.8 K/mm3 LY# 0.8 0.7-4.5 K/mm3 MO# 0.4 0.1-1.0 K/mm3 EO# 0.7 0.0-0.4 Kmm3 BA# 0.0 0-0.2 K/mm3 NRBC# 0 IG# 0.08 H-CMP Reviewed date:12/05/2024 04:32:53 PM Interpretation: Performing Lab: Notes/Report: NA 135 136-145 mmol/L K 4.0 3.5-5.1 mmoL/L CL 110 98-107 mmol/L CO2 24 22.0-30.0 mmol/L GAP 5.0 5-15 mEq/L BUN 17 7-17 mg/dl CREATT 0.90 0.52-1.04 mg/dl CRCLE 67 50-200 mL/min GFRAA 75 >60 ML/MIN EGFR 62 >60 ml/min GLU 93 74-100 mg/dl CA 9.6 8.4-10.2 mg/dl BILIT 0.4 0.2-1.3 mg/dl AST 35 14-36 U/L ALT 15 12-78 U/L TP 4.9 6.3-8.2 g/dl ALB 2.4 3.5-5.0 g/dl Delta: 2.8 on 12/03/24 GLOB 2.5 1.3-3.2 g/dL AGRATIO 1.0 1.1-1.8 ALP 65 38-126 U/L H-Magnesium Reviewed date:12/05/2024 04:32:53 PM Interpretation: Performing Lab: Notes/Report: MG 1.7 1.6-2.3 mg/dl Delta: 1.5 on 12/03/24 H-CBC Reviewed date:12/05/2024 04:32:53 PM Interpretation: Performing Lab: Notes/Report: WBC 7.7 4.8-10.8 K/mm3 Delta: 10.3 o n 12/04/24-639 RBC 2.62 4.20-5.40 M/mm3 HGB 8.0 12.2-16.2 g/dL Delta: 9.9 on 12/04/24 HCT 24.9 37.0-47.0 % MCV 95.0 81-99 fl MCH 30.5 27.0-31.2 pg MCHC 32.1 31.8-35.4 g/dL RDW-SD 49.8 RDW 14.3 11.5-17.5 % PLT 188 142-424 K/mm3 MPV 9.9 7.4-10.4 fl NE% 77.1 37.0-80.0 % LY% 10.8 10-50 % MO% 5.5 1.7-9.3 % EO% 5.9 0.1-12.0 % BA% 0.3 0.1-2.0 % NRBC% 0 IG% 0.4 NE# 5.9 1.8-7.8 K/mm3 LY# 0.8 0.7-4.5 K/mm3 MO# 0.4 0.1-1.0 K/mm3 EO# 0.5 0.0-0.4 Kmm3 BA# 0.0 0-0.2 K/mm3 NRBC# 0 IG# 0.03 H-BMP Reviewed date:12/05/2024 04:32:53 PM Interpretation: Performing Lab: Notes/Report: NA 134 136-145 mmol/L K 3.3 3.5-5.1 mmoL/L CL 109 98-107 mmol/L CO2 22 22.0-30.0 mmol/L GAP 6.3 5-15 mEq/L BUN 11 7-17 mg/dl Delta: 17 on 12/04/24 CREATT 0.60 0.52-1.04 mg/dl Delta: 0.90 on 12/04/24 CRCLE 67 50-200 mL/min GFRAA 120 >60 ML/MIN Delta: 75 on 12/04/24 EGFR 99 >60 ml/min GLU 68 74-100 mg/dl Delta: 93 on 12/04/24 CA 8.9 8.4-10.2 mg/dl H-CBC Reviewed date:12/06/2024 09:47:53 AM Interpretation: Performing Lab: Notes/Report: WBC 7.0 4.8-10.8 K/mm3 RBC 2.69 4.20-5.40 M/mm3 HGB 8.4 12.2-16.2 g/dL HCT 24.8 37.0-47.0 % MCV 92.2 81-99 fl MCH 31.2 27.0-31.2 pg MCHC 33.9 31.8-35.4 g/dL RDW-SD 46.5 RDW 13.6 11.5-17.5 % PLT 157 142-424 K/mm3 MPV 9.2 7.4-10.4 fl NE% 79.4 37.0-80.0 % LY% 8.9 10-50 % MO% 8.1 1.7-9.3 % EO% 2.4 0.1-12.0 % BA% 0.3 0.1-2.0 % NRBC% 0 IG% 0.9 NE# 5.5 1.8-7.8 K/mm3 LY# 0.6 0.7-4.5 K/mm3 MO# 0.6 0.1-1.0 K/mm3 EO# 0.2 0.0-0.4 Kmm3 BA# 0.0 0-0.2 K/mm3 NRBC# 0 IG# 0.06 H-CMP Reviewed date:12/06/2024 09:47:53 AM Interpretation: Performing Lab: Notes/Report: NA 134 136-145 mmol/L K 3.1 3.5-5.1 mmoL/L CL 105 98-107 mmol/L CO2 26 22.0-30.0 mmol/L GAP 6.1 5-15 mEq/L BUN 4 7-17 mg/dl Delta: 11 on 12/05/24 CREATT 0.50 0.52-1.04 mg/dl CRCLE 72 50-200 mL/min GFRAA 148 >60 ML/MIN Delta: 120 on 12/05/24 EGFR 123 >60 ml/min GLU 117 74-100 mg/dl CA 8.8 8.4-10.2 mg/dl BILIT 0.6 0.2-1.3 mg/dl AST 35 14-36 U/L ALT 15 12-78 U/L TP 5.3 6.3-8.2 g/dl ALB 2.4 3.5-5.0 g/dl GLOB 2.9 1.3-3.2 g/dL AGRATIO 0.8 1.1-1.8 ALP 67 38-126 U/L H-CBC Reviewed date:12/07/2024 08:17:22 AM Interpretation: Performing Lab: Notes/Report: WBC 8.7 4.8-10.8 K/mm3 RBC 2.90 4.20-5.40 M/mm3 HGB 9.1 12.2-16.2 g/dL HCT 26.7 37.0-47.0 % MCV 92.1 81-99 fl MCH 31.4 27.0-31.2 pg MCHC 34.1 31.8-35.4 g/dL RDW-SD 46.7 RDW 13.8 11.5-17.5 % PLT 192 142-424 K/mm3 MPV 9.8 7.4-10.4 fl NE% 77.6 37.0-80.0 % LY% 8.2 10-50 % MO% 9.0 1.7-9.3 % EO% 2.9 0.1-12.0 % BA% 0.2 0.1-2.0 % NRBC% 0 IG% 2.1 NE# 6.7 1.8-7.8 K/mm3 LY# 0.7 0.7-4.5 K/mm3 MO# 0.8 0.1-1.0 K/mm3 EO# 0.3 0.0-0.4 Kmm3 BA# 0.0 0-0.2 K/mm3 NRBC# 0 IG# 0.18 H-BMP Reviewed date:12/07/2024 08:17:22 AM Interpretation: Performing Lab: Notes/Report: NA 135 136-145 mmol/L K 3.7 3.5-5.1 mmoL/L CL 105 98-107 mmol/L CO2 29 22.0-30.0 mmol/L GAP 4.7 5-15 mEq/L BUN 3 7-17 mg/dl CREATT 0.50 0.52-1.04 mg/dl CRCLE 65 50-200 mL/min GFRAA 148 >60 ML/MIN EGFR 123 >60 ml/min GLU 103 74-100 mg/dl CA 8.8 8.4-10.2 mg/dl H-Magnesium Reviewed date:12/07/2024 08:17:22 AM Interpretation: Performing Lab: Notes/Report: MG 1.4 1.6-2.3 mg/dl Delta: 1.7 on 12/04/24 H-UA Reviewed date:12/05/2024 04:32:53 PM Interpretation: Performing Lab: Notes/Report: Comment post catheter insertion Method to collect specimen catheterized collection UCOL YELLOW Yellow UAPP CLEAR Clear UPH 6.0 5.0-8.5 USG 1.010 1.005-1.030 UPRO TRACE Negative UGLU Negative Negative UKET Negative Negative UBLD TRACE-I Negative UNIT Negative Negative UBIL Negative Negative UURO 0.2 0.2 EU/dl ULEU Negative Negative UMICU URINE MICROSCOPIC MICROSCOPIC URBC 20-50 0-3 #/hpf UWBC 3-5 0-3 #/hpf USQEPI Occasional 0-5 #/hpf UBACT 2+ NONE /lpf M-Complete Blood Count Man D if Reviewed date:12/05/2024 04:32:53 PM Interpretation: Performing Lab: Notes/Report: WBC 2.5 4.8-10.8 K/mm3 Delta: 4.7 on 12/02/24 RBC 2.59 4.20-5.40 M/mm3 Delta: 4.26 on 12/02/24 HGB 8.0 12.2-16.2 g/dL Delta: 12.9 o n 12/02/24 HCT 25.2 37.0-47.0 % MCV 97.3 81-99 fl MCH 31.7 27.0-31.2 pg MCHC 32.5 31.8-35.4 g/dL RDW 13.7 11.5-17.5 % PLT 129 142-424 K/mm3 Delta: 193 on 12/02/24 MPV 9.7 7.4-10.4 fl NE% 77.6 37.0-80.0 % LY% 16.3 10-50 % MO% 5.7 1.7-9.3 % EO% 0.0 0.1-12.0 % BA% 0.0 0.1-2.0 % NE# 1.9 1.8-7.8 K/mm3 LY# 0.4 0.7-4.5 K/mm3 MO# 0.1 0.1-1.0 K/mm3 EO# 0.0 0.0-0.4 Kmm3 BA# 0.0 0-0.2 K/mm3 MDIFF MANUAL DIFFERENTIAL MANUAL DIFF TCC 100 NEUT%M 74 42-76 % LYMPH%M 24 10-50 % MONO%M 2 2-9 % PLTE Normal POLC 1+ ANISO 1+ OVAL 1+ H-Sputum Culture with Gram S chapin Reviewed date:12/05/2024 04:32:53 PM Interpretation: Performing Lab: Notes/Report: Comment: Obtain within 1 hour of pt being placed on vent GS Gram Stain: GS <10 White Blood Cells/LPF GS <10 Epithelial Cells / LPF GS No Organisms Seen CUSPU No growth. H-Urine Culture and Sensitiv ity Reviewed date:12/05/2024 04:32:53 PM Interpretation: Performing Lab: Notes/Report: CUU NO GROWTH AFTER 48 HOURS H-Lactic Acid Reviewed date:12/05/2024 04:32:53 PM Interpretation: Performing Lab: Notes/Report: Comment Repeat 2nd or 3rd lactic acid to reflex if initial or subseq level > 2 LACTIC 8.3 0.7-2.1 mmol/L CRITICAL RESULT Results called and read back/verified to:Samantha Manuel RN [] on 12/02/24 at 2243 By Daniela Pereira An elevated Lactic Acid is suggestive of sepsis and should be repeated within 6 hours of initial testing. H-Magnesium Reviewed date:12/09/2024 09:18:13 AM Interpretation: Performing Lab: Notes/Report: MG 1.7 1.6-2.3 mg/dl Delta: 1.4 on 12/07/24 H-CBC Reviewed date:12/09/2024 09:18:12 AM Interpretation: Performing Lab: Notes/Report: WBC 12.5 4.8-10.8 K/mm3 Delta: 8.7 on 12/07/24 RBC 3.00 4.20-5.40 M/mm3 HGB 8.7 12.2-16.2 g/dL HCT 27.7 37.0-47.0 % MCV 92.3 81-99 fl MCH 29.0 27.0-31.2 pg MCHC 31.4 31.8-35.4 g/dL RDW-SD 46.3 RDW 13.6 11.5-17.5 % PLT 292 142-424 K/mm3 Delta: 192 on 12/07/24 MPV 9.1 7.4-10.4 fl NE% 74.6 37.0-80.0 % LY% 9.7 10-50 % MO% 7.5 1.7-9.3 % EO% 3.8 0.1-12.0 % BA% 0.3 0.1-2.0 % NRBC% 0 IG% 4.1 NE# 9.3 1.8-7.8 K/mm3 LY# 1.2 0.7-4.5 K/mm3 MO# 0.9 0.1-1.0 K/mm3 EO# 0.5 0.0-0.4 Kmm3 BA# 0.0 0-0.2 K/mm3 NRBC# 0 IG# 0.52 H-DIFF Reviewed date:12/09/2024 09:18:13 AM Interpretation: Performing Lab: Notes/Report: BRIAN MANUAL DIFFERENTIAL MANUAL DIFF TCC 100 NEUT%M 85 42-76 % LYMPH%M 11 10-50 % MONO%M 1 2-9 % EOS%M 3 0-3 % PLTE Normal RM Normal H-BMP Reviewed date:12/09/2024 09:18:13 AM Interpretation: Performing Lab: Notes/Report: NA 132 136-145 mmol/L K 3.3 3.5-5.1 mmoL/L CL 95 98-107 mmol/L CO2 33 22.0-30.0 mmol/L GAP 7.3 5-15 mEq/L BUN 3 7-17 mg/dl CREATT 0.70 0.52-1.04 mg/dl Delta: 0.50 on 12/07/24 CRCLE 66 50-200 mL/min GFRAA 101 >60 ML/MIN Delta: 148 on 12/07/24 EGFR 83 >60 ml/min GLU 82 74-100 mg/dl CA 8.7 8.4-10.2 mg/dl M-Complete Blood Count Man D if Reviewed date:12/05/2024 04:32:53 PM Interpretation: Performing Lab: Notes/Report: WBC 7.5 4.8-10.8 K/mm3 Delta: 2.5 on 12/02/24 RBC 3.34 4.20-5.40 M/mm3 Delta: 2.59 on 12/02/24 HGB 10.5 12.2-16.2 g/dL Delta: 8.0 on 12/02/24 HCT 31.5 37.0-47.0 % MCV 94.3 81-99 fl MCH 31.4 27.0-31.2 pg MCHC 33.3 31.8-35.4 g/dL RDW 13.7 11.5-17.5 % PLT 255 142-424 K/mm3 Delta: 129 on 12/02/24 MPV 9.6 7.4-10.4 fl NE% 81.1 37.0-80.0 % LY% 12.2 10-50 % MO% 6.0 1.7-9.3 % EO% 0.1 0.1-12.0 % BA% 0.1 0.1-2.0 % NE# 6.1 1.8-7.8 K/mm3 LY# 0.9 0.7-4.5 K/mm3 MO# 0.5 0.1-1.0 K/mm3 EO# 0.0 0.0-0.4 Kmm3 BA# 0.0 0-0.2 K/mm3 MDIFF MANUAL DIFFERENTIAL MANUAL DIFF TCC 100 NEUT%M 79 42-76 % LYMPH%M 16 10-50 % MONO%M 5 2-9 % PLTE Normal RM Normal H-CBC Reviewed date:12/05/2024 04:32:53 PM Interpretation: Performing Lab: Notes/Report: WBC 10.6 4.8-10.8 K/mm3 Delta: 7.5 on 12/03/24 RBC 3.81 4.20-5.40 M/mm3 HGB 11.5 12.2-16.2 g/dL HCT 35.7 37.0-47.0 % MCV 93.7 81-99 fl MCH 30.2 27.0-31.2 pg MCHC 32.2 31.8-35.4 g/dL RDW-SD 46.8 RDW 13.8 11.5-17.5 % PLT 306 142-424 K/mm3 MPV 9.5 7.4-10.4 fl NE% 83.9 37.0-80.0 % LY% 10.2 10-50 % MO% 5.1 1.7-9.3 % EO% 0.1 0.1-12.0 % BA% 0.3 0.1-2.0 % NRBC% 0 IG% 0.4 NE# 8.9 1.8-7.8 K/mm3 LY# 1.1 0.7-4.5 K/mm3 MO# 0.5 0.1-1.0 K/mm3 EO# 0.0 0.0-0.4 Kmm3 BA# 0.0 0-0.2 K/mm3 NRBC# 0 IG# 0.04 H-MRSA screen Reviewed date:12/05/2024 04:32:53 PM Interpretation: Performing Lab: Notes/Report: CUMRSA Negative H-CRE Screen Reviewed date:12/05/2024 04:32:53 PM Interpretation: Performing Lab: Notes/Report: CRE Negative P-Comprehensive Metabolic Pa deion (CMP) Reviewed date:11/03/2024 03:13:20 PM Interpretation:BUN 25, Creat 1.14, eGFR 52 Performing Lab: Notes/Report: Test performed by [facility] [address] [place] [address] , [address] , [place] [address] Link Uribe MD, Printing Machine Mechanic CLIA: [id number] Sodium 138 135-145 mmol/L Potassium 5.2 3.5-5.3 [...] Interpretation: Performing Lab: Notes/Report: Test performed by [facility] [address] , [place] [address] Link Uribe MD, Printing Machine Mechanic CLIA: [id number] Ferritin 117.0 13.0-301.0 ng/mL P-Iron Reviewed date:11/03/2024 03:13:20 PM Interpretation:36 Performing Lab: Notes/Report: [facility] [address] , [place] [address] Link Uribe MD, Printing Machine Mechanic CLIA: [id number] Iron 36 37-145 ug/dL P-Lipid Panel Reviewed date:11/03/2024 03:13:20 PM Interpretation:Trigs 200 Performing Lab: Notes/Report: Test performed by [facility] [address] , [address], [place] [id number] Link Uribe MD, Printing Machine Mechanic CLIA: [id number] Cholesterol 178 <200 mg/dL Triglycerides 200 <150 [...] Interpretation:Normal Performing Lab: Notes/Report: Test performed by [facility] [address] [place], [place] [address] , [place] [address] Link Uribe MD, Printing Machine Mechanic CLIA: [id number] Magnesium 2.0 1.6-2.4 mg/dL P-Vitamin D 25-Hydroxy Reviewed date:11/03/2024 03:13:20 PM Interpretation:Normal Performing Lab: Notes/Report: Test performed by [facility] [address] [place], [place] [address] [address], [place] [address] Link Uribe MD, Printing Machine Mechanic CLIA: [id number] Vitamin D 25-Hydroxy 54.7 30.0-100.0 ng/mL Interpretation of Vitamin D 25 OH: < 20 ng/mL - Deficiency 20 - 29 ng/mL - Insufficiency 30 - 100 ng/mL - Sufficiency > 100 ng/mL - Super-therapeutic- toxicity may occur above this level. Clinical correlation required. Urinalysis - Inhouse Reviewed date:11/09/2024 12:07:11 PM Interpretation: Performing Lab: Notes/Report: Color/Clarity dark yellow Leuk 1+ Nitrite pos Urobili 3.2 Protein 1+ pH 5.5 Blood neg Sp. Gr. 1.020 Ketone neg Bili neg Gluc neg P-Culture, Urine Reviewed date:11/08/2024 12:57:12 AM Interpretation: Performing Lab: Notes/Report: Test performed by [facility], [address] , [address], [place] [address] Link Uribe MD, Printing Machine Mechanic CLIA: [id number] Specimen Source Urine - Void Culture, Urine [...] Tobramycin R Trimeth/Sulfa S S=SUSCEPTIBLE I=INTERMEDIATE R=RESISTANT CBC Venipuncture (in house) Reviewed date:01/20/2025 05:38:21 [...] - 6.5 % P-Comprehensive Metabolic Pa deion ([facility]) Reviewed date:01/24/2025 03:30:22 PM Interpretation:Normal Performing Lab: Notes/Report: CLIA: [id number] Link Uribe MD, Printing Machine Mechanic [facility] , [address], [place] [address] Test performed by [facility], [facility] Sodium 134 135-145 mmol/L Potassium 4.6 3.5-5.3 [...] Interpretation:Normal Performing Lab: Notes/Report: Test performed by [facility] , [address], [place] [address] Link Uribe MD, Printing Machine Mechanic CLIA: [id number] Ferritin 96.7 13.0-301.0 ng/mL P-Iron Reviewed date:01/24/2025 03:30:22 PM Interpretation:Normal Performing Lab: Notes/Report: [facility] , [address], [place] [address] Link Uribe MD, Printing Machine Mechanic CLIA: [id number] Iron 55 37-145 ug/dL P-Magnesium Reviewed date:01/24/2025 03:30:22 PM Interpretation:Normal Performing Lab: Notes/Report: Test performed by [facility] , [place] [address] Link Uribe MD, Printing Machine Mechanic CLIA: [id number] Magnesium 2.0 1.6-2.4 mg/dL P-TSH reflex to FT4 Reviewed date:01/24/2025 03:30:22 PM Interpretation:Normal Performing Lab: Notes/Report: [facility] , [place] [address] Link Uribe MD, Printing Machine Mechanic CLIA: [id number] TSH reflex to FT4 1.17 0.43-5.25 mU/L proBrain Natriuretic Peptide Reviewed date:01/24/2025 03:30:22 PM Interpretation:Normal Performing Lab: Notes/Report: Test performed by [facility] [address] , [address] [place] [id number] Link Uribe MD, Printing Machine Mechanic CLIA: [id number] proBrain Natriuretic Peptide 165 <300 pg/mL Please note the updated reference range values which are stratified by age. Positive >900 pg/mL Indeterminate 300-900 pg/mL Negative <300 pg/mL CXR Reviewed date:12/12/2024 09:57:19 PM Interpretation: Performing Lab: Notes/Report: BMP Reviewed date:12/14/2024 12:14:25 PM Interpretation: Performing Lab: Notes/Report: sodium 133 potassium 3.6 chloride 99 CO2 30 glucose 98 BUN/CR 6/0.7 calcium 8.9 WBC 9.95 RBC 2.96 Hgb 9 Hct 27.5 MCV 27.5 MCH 92.9 MCHC 30.4 platlets 012535 % Granulocytes 74.7 %Lymphocytes 11 %monocytes 8.2 Reason For Referral No Information Medications Medication SIG (Take, Route, Frequency, Duration) Notes Start Date End Date Status Breo Ellipta 200-25 MCG/ACT 1 puff Inhalation Once a day; Duration: 30 days 04/26/2025 Active Albuterol Sulfate HFA 108 (90 Base) MCG/ACT 1 puff as needed Inhalation every 4 hrs; Duration: 30 days 04/26/2025 Active Magnesium Oxide -Mg Supplement 400 (240 Mg) MG TAKE ONE TABLET BY MOUTH TWICE DAILY Orally twice a day; Duration: 90 days Active Fluticasone Propionate 50 MCG/ACT 1 spray in each nostril Nasally Twice a day; Duration: 30 days As needed Active Pantoprazole Sodium 40 MG 1 tablet 1/2 to 1 hour before morning meal Orally Once a day Active Walker with Wheels as directed 01/26/2025 Active Wheelchair - as directed Pt weighs 151.4 lbs. She will be discharged from [facility] 01/14/25. 01/13/2025 Active DULoxetine HCl 60 mg TAKE TWO CAPSULES BY MOUTH EVERY DAY daily; Duration: 90 days Active HYDROcodone-Acetamino phen 5-325 MG 1 tablet as needed Orally every 4 hours 01/04/2025 Active rOPINIRole HCl 2 MG 1 tablet 1 to 3 hours before bedtime Orally Once a day; Duration: 90 days Active Iron (Ferrous Sulfate) 325 (65 Fe) MG 1 tablet Orally daily Active Pregabalin 100 MG 1 capsule Orally 4 times a day; Duration: 90 days Active Immunizations Vaccine Route Administration Date Status Comme nts Prevnar (PCV20) IM Intramuscular 03/20/2023 Administered Prevnar (PCV13) IM Intramuscular 04/29/2018 Administered PNEUMOVAX 23 VACCINE Unknown 03/03/2017 Administered Fluzone Quad (6months&older) IM Intramuscular 02/03/2019 Administered Fluzone Quad (6months&older) IM Intramuscular 01/19/2020 Administered Fluzone PF Quad (6-35 months) Unknown 02/19/2021 Administered Fluzone High Dose (65yr and older) IM Intramuscular 01/16/2022 Administered Fluzone High Dose (65yr and older) IM Intramuscular 03/20/2023 Administered Fluzone High Dose (65yr and older) IM Intramuscular 02/04/2024 Administered Fluzone High Dose (65yr and older) IM Intramuscular 05/05/2025 Administered COVID 19 Pfizer Unknown 11/01/2020 Administered COVID 19 Pfizer Unknown 11/22/2020 Administered Shingrix Unknown 02/19/2021 Administered Shingrix Unknown 08/01/2021 Administered Fluzone Quad-Medicare (6months&older) IM Intramuscular 01/28/2018 Administered Problems Problem Type SNOMED Code ICD Code Onset Dates Problem Status W/U Status Risk Notes Problem Essential hypertension (00520586) Essential (primary) hypertension (I10) Active confirmed Problem Vitamin D deficiency (93660929) Vitamin D deficiency (E55.9) Active confirmed Problem Abnormal mammogram (800039194) Abnormal mammogram (R92.8) Active confirmed Problem Hypertriglyceridemia (807213294) Hypertriglyceridemia (E78.1) Active confirmed Problem Osteopenia (335004643) Osteopenia (M85.80) Active confirmed Problem Mixed anxiety and depressive disorder (651169935) Depression with anxiety (F41.8) Active confirmed Problem Lymphedema (82045687) Lymphedema (I89.0) Active confirmed Problem Sciatica (28777200) Lumbago with sciatica, right side (M54.41) Active confirmed Problem Congestive heart failure (56386788) CHF (congestive heart failure) (I50.9) Active confirmed Problem Mixed hyperlipidemia (912171347) Mixed hyperlipidemia (E78.2) Active confirmed Problem Hypomagnesemia (224557354) Hypomagnesemia (E83.42) Active confirmed Problem Primary insomnia (3256382) Primary insomnia (F51.01) Active confirmed Problem Chronic pain (47878406) Other chronic pain (G89.29) Active confirmed Problem Aneurysm (867677509) Aneurysm of unspecified site (I72.9) Active confirmed Problem Sciatica (89276379) Lumbago with sciatica, left side (M54.42) Active confirmed Problem History of respirato r dependence (727446697) Dependence on respirator [ventilator] status (Z99.11) Active confirmed Problem Degeneration of cervical intervertebral disc (06846072) Degenerative disc disease, cervical (M50.30) Active confirmed Problem Chronic pain (66292173) Other chronic pain (G89.29) Active confirmed Problem COPD - Chronic obstructive pulmonary disease (86536519) Chronic obstructive pulmonary disease, unspecified COPD type (J44.9) Active confirmed Problem Gastroesophageal reflux disease (886424845) Gastroesophageal reflux disease, esophagitis presence not specified (K21.9) Active confirmed Problem History of tuberculosis (941470904) 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) Active confirmed Problem Osteoarthritis of knee (191303992) Primary osteoarthritis of both knees (M17.0) Active confirmed Problem Iron deficiency anemia (31031878) Iron deficiency anemia, unspecified iron deficiency anemia type (D50.9) Active confirmed Problem Insomnia (523883113) Insomnia, u nspecified type (G47.00) Active confirmed Problem Methicillin resistan t Staphylococcus aureus infection (345028732) MRSA infection (A49.02) Active confirmed Problem Hyperlipidaemia (27649804) Hyperlipidemia, unspecified hyperlipidemia type (E78.5) Active confirmed Problem Hypothyroidism (83202241) Hypothyroidism, unspecified type (E03.9) Active confirmed Problem Disorder of neck (801431241) Disorder of neck (M53.82) Active confirmed Problem Dysphagia (33905960) Dysphagia, unspecified type (R13.10) Active confirmed Problem Mammography abnormal (273307475) Abnormal mammogram of right breast (R92.8) Active confirmed Problem Type II diabetes mellitus without complication (559064540) Type 2 diabetes mellitus without complication, without long-term current use of insulin (E11.9) Active confirmed Problem Asthma without statu s asthmaticus (74147805) Asthma, unspecified asthma severity, unspecified whether complicated, unspecified whether persistent (J45.909) Active confirmed Problem Allergic rhinitis (76891277) Allergic rhinitis, unspecified seasonality, unspecified trigger (J30.9) Active confirmed Problem Type II diabetes mellitus without complication (730786257) Type 2 diabetes mellitus without complication, unspecified whether halfway insulin use (E11.9) Active confirmed Problem Daytime hypersomnia (04927433392514) Daytime hypersomnia (G47.10) Active confirmed Problem Lacunar infarction (563611348) Lacunar infarction (I63.81) Active confirmed Problem Multi-infarct dementia, 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) Vascular dementia, unspecified dementia severity, unspecified whether behavioral, psychotic, or mood disturbance or anxiety (F01.50) Active confirmed Vital Signs Heart Rate 82 /min 01/20/2025 Respiratory Rate 18 /min 01/03/2025 Blood pressure diastolic 70 mm Hg 01/20/2025 Height 64 in 01/20/2025 Blood pressure systolic 122 mm Hg 01/20/2025 Weight 000 lbs 01/20/2025 [facility]ters [facility] Date [facility] [address] [place] [id number] 10/28/2024 Anni Bari Vitamin D deficiency E55.9 ; Acute hypotension I95.9 ; Iron deficiency anemia, unspecified iron deficiency anemia type D50.9 ; Type 2 diabetes mellitus without complication, without long-term current use of insulin E11.9 ; Mixed hyperlipidemia E78.2 ; Vitamin B12 deficiency E53.8 ; Hypomagnesemia E83.42 ; Renal insufficiency N28.9 and Weakness R53.1 [place] [facility] [address] [place] [id number] 11/04/2024 Anni Candelaria Dysuria R30.0 ; Asth [...] type G47.00 and Essential (primary) hypertension I10 [place] [facility] [place] [id number] 12/13/2024 Wendie Hanna Acute respiratory infection J22 [...] F41.8 and CHF (congestive heart failure) I50.9 [place] [id number] [place] [id number] 12/20/2024 Wendie Hanna Pleural effusion J90 ; [...] F41.8 and CHF (congestive heart failure) I50.9 [place] [address] [facility] [place] [id number] 01/03/2025 Wendie Hanna Postop check Z09 ; [...] (congestive heart failure) I50.9 and Debility R53.81 [facility] [address] [place] [id number] 01/20/2025 Anni Candelaria Asthma, unspecified asthma severity, [...] (congestive heart failure) I50.9 and Debility R53.81 [facility] [address] [place], [place] [id number] 05/05/2025 Anni Crowdy Immunization due Z23 [facility] [address] [place], [place] [id number] 06/20/2024 Anni Crowdy [facility] [address] [place] [id number] 09/30/2024 Anni Crowdy [facility] [address] [place] [id number] 11/01/2024 Anni Crowdy [facility] [address] [place] [id number] 11/03/2024 Anni Crowdy [facility] [address] [place] [id number] 11/08/2024 Anni Crowdy [facility] [address] [place] [id number] 11/21/2024 Anni Crowdy [facility] [address] [place] [id number] 12/01/2024 Anni Crowdy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
--- OUTSIDE RECORDS SUMMARY | 2025-05-06 12:27 | XMS_ITS | Data Portability ---
Author Organization [place] [facility], [facility] Address [address] [place] [address] Assessment Encounter Date Assessment Date Assessment LastModified [...] increasing pain. We have also let the [place] office know to get her approved for [...] out of her pump and catheter in [place]. abux Not available 02/18/2024 17:23:51 Plan of Treatment Reminders Order Date Submit Date Provider Last Modified By Organization Details Last Modified Time Details Appointments None recorded. Lab None recorded. Referral None recorded. Procedures intrathecal pump refill (PROC) 2023 024 [email or web address] Not available 4 18:46:52 Surgeries None recorded. Imaging None recorded. Medication Orders None recorded. Patient TargetsNo targets recorded. Patient InstructionsNo instructions recorded. Reason for Referral None Reported. Problems Name Problem SNOMED Code Status Onset Date Resolution Date Notes Provider Name and Address Organization Details Recorded Time Intervertebral disc disorder 80441711 Active 2022 GISELA CARDONA null, [place] [facility] 3 15:19:38 Problem Notes None recorded. Procedures Surgical History Date Name Laterality Status Provider Name and Address Organization Details Recorded Time 02/17 Pump Refill completed Marty Tsang MD [address] [address], [place], [address] , [place] [facility] 4 [...] use any illicit or recreational drugs? No [email or web address] Information not available 02/18/2024 Do you or have you ever used any other forms of tobacco or nicotine? No [email or web address] Information not available 02/18/2024 What is your level of alcohol consumption? None [email or web address] Information not available 02/18/2024 Mental Status None recorded. Family History Nothing Reported. Medical History Condition Response Coronary Artery Disease N Gout N Head Trauma/Injury Y Hernia N Thyroid Problems N Depression Y COPD N Anemia Y Ulcers N Heart Attack (AK) N Diabetes Y Anxiety Disorder N Bleeding [...] ICD10 Code Diagnosis IMO Codes Diagnosis Note [id number] Marty Tsang MD [address] BARBER [address] [place] [phone] 02/18/2024 09:45:35 02/18/2024 12:22:13 Intervertebral disc disorder 73609244 M51.9 Degenerati on of lumbar intervertebral disc 30984379 M51.369 Lumbar radiculopathy 128 725158 M54.16 Lumbar spondylosis 53526 0009 M47.896 Health Concerns Section Related Observation LastModified by Organization Detai ls LastModified Time None Recorded Concern Status LastModified by Organization Details LastModified Time None Recorded Advance Directives Directive None Recorded Payers Insurance Date Sequence Insurance Name Policy Number Policy Sewell Covered Member ID Sewell Member ID Guarantor Name 07/11/2021 1 *SELF PAY* Ge orgia Fariba Vega 05/22/2022 1 [place] [id number] 2 Luiza Vega [id number] [place] Fariba Vega 03/23/2025 1 [employer] (MEDICARE REPLACEMENT/ ADVANTAGE - PPO) Sherita Vega [id number] [place] Far[place] Vega 04/06/2025 PAYMENT PLAN [place] Far[place] Vega Notes Date Note Type Note Provider Name and Address Organization Details Recorded Time 02/18/2024 text/html Back PainReporte d by PatientHPIFor location, patient reportspain radiating to the legs. For duration, patient reportschronic. Marty Tsang MD [address], [address], [place] [facility] 02/18/2024 17:25:00 OBGyn Episode No OBEpisode recorded.
--- OUTSIDE RECORDS SUMMARY | 2025-05-06 12:27 | XMS_ITS | Clinical Summary ---
Author Organization Healthcare Address [address] [place] [address] Care Team Providers Care Short Haul Driver Name Role Phone Nahum Ann MD Primary Care Provider [phone] Family History Medical History Relation Name Comments [...] of Treatment Not on file Care Teams Short Haul Driver Relationship Specialty Start Date End Date Nahum Ann MD [address] [place] [address] PCP - General 09/28/20
--- OUTSIDE RECORDS SUMMARY | 2025-05-06 12:27 | XMS_ITS | Referral Summary ---
Author Organization [employer] ([place], [place], [place], [place], [place]) Address [address] [place] [address] Care Team Providers Care Mechanical Systems Design Engineer Name Role Phone Anni Candelaria Primary Care Provider [phone] Allergies Active Allergy Reactions Criticality Noted Date [...] times daily with breakfast and dinner. Active [id number] -DPA-fish oil 1,050-1,200 mg Cap per capsule [...] Date Lino rded Speak language other than Guamanian at home Not on file 08/04/2023 Want [...] Plan of Treatment Not on file Insurance [facility] MEDICARE PPO Care Teams Mechanical Systems Design Engineer Relationship Specialty Start Date End Date Anni Candelaria PA [address] [place] [address] PCP - General Physician Mash Filter Cloth Changer 08/06/23
[2025-05-06 13:14] LABS: Lactate Venous 1.7 mmol/L (0.4-2.0); VBG HCO3 28.2 mmol/L (23-30); VBG PH 7.32 mmol/L (7.31-7.41); VBG PO2 36.0 mmol/L (28-40)
[2025-05-06 13:18] LABS: VBG PCO2 56.2 mmol/L (35-51)
[2025-05-06 13:20] LABS: Hematocrit 47.6 % (37.0-47.0); Hemoglobin 16.1 g/dL (12.2-16.2); Immature Granulocytes % 0.3 %; Mean Corpuscular HGB Conc 33.8 g/dL (31.8-35.4); Mean Corpuscular Hemoglobin 30.6 pg (27.0-31.2); Mean Corpuscular Volume 90.5 fl (81-99); Nucleated Red Blood Cells % 0 %; Platelet Count 119 K/mm3 (142-424); Red Blood Count 5.26 M/mm3 (4.20-5.40); Red Cell Distribution Width-SD 48.4 fL; White Blood Count 3.5 K/mm3 (4.8-10.8)
--- NOTE | 2025-05-06 13:24 | PC.NURSE ---
lab came to stick patient for second set of blood cultures, unsuccessful. provider notified
[2025-05-06 13:33] LABS: Albumin Level 5.3 g/dl (3.5-5.0); Chloride 93 mmol/L (98-107)
[2025-05-06 13:34] LABS: Potassium 4.3 mmoL/L (3.5-5.1); Sodium 134 mmol/L (136-145)
[2025-05-06 13:36] LABS: Blood Urea Nitrogen 13 mg/dl (7-17); Creatinine Clearance Estimated 61 mL/min (50-200); Creatinine,Serum 0.80 mg/dl (0.52-1.04); Estimated Glomerular Filt Rate 71 ml/min (>60); GFR (African American) 86 ML/MIN (>60)
[2025-05-06 13:37] LABS: Alanine Aminotransferase 26 U/L (12-78); Albumin/Globulin Ratio 1.3 (1.1-1.8); Alkaline Phosphatase 81 U/L (38-126); Anion Gap 14.3 mEq/L (5-15); Aspartate Amino Transferase 55 U/L (14-36); Bilirubin,Total 1.1 mg/dl (0.2-1.3); Calcium 9.7 mg/dl (8.4-10.2); Carbon Dioxide 31 mmol/L (22.0-30.0); Globulin 4.1 g/dL (1.3-3.2); Glucose 119 mg/dl (74-100); Total Protein,Serum 9.4 g/dl (6.3-8.2)
[2025-05-06 13:44] LABS: Microscopic, Urine URINE MICROSCOPIC (MICROSCOPIC)
[2025-05-06 13:50] LABS: Coronavirus 19, PCR Not Detected (NotDetected); Influenza A, PCR Not Detected (NotDetected); Influenza B, PCR Not Detected (NotDetected)
--- NOTE | 2025-05-06 13:54 | PC.NURSE ---
speaking with [facility]
[2025-05-06 13:55] LABS: RBC Morphology Normal; Total Cells Counted 100
--- NOTE | 2025-05-06 14:06 | PC.NURSE ---
provider states we dont need second set of cultures due to being a hard stick.
--- NOTE | 2025-05-06 14:06 | EXP.HP ---
History of Present Illness *Admission Date: 05/06/25 *Reason for visit:: weakness, fatigue, confusion *History of present illness: Ms. Vega is a 69-year-old female with chronic debility. Has osteoarthritis and degenerative disc disease. Pain pump in place. Was admitted earlier this year in November where she was found to have pancreatitis. Also found to have peptic ulcer with perforation. Treated with antibiotics, Levophed, laparotomy with a Rais patch repair. Was discharged to rehab where she stayed until December. Has been home with family since. Just presented yesterday for pain pump refill. Also received her flu shot. Presents to the ER today with complaint of weakness and some mild confusion. Found to have O2 sat of 85% on room air on arrival. Of note was on 1 L oxygen continuously while at the [place] [facility] in November and December. Workup in the ER with white count of 3.5, chest x-ray with persistent effusion on right side that is marginally worse. Blood gas showing pH 7.32, pCO2 of 56. Compensated with bicarb of 31 on CMP. Kidney function at baseline with BUN 13, creatinine 0.8. Takes tramadol and Lyrica in addition to her Dilaudid pain pump. Medicine was consulted for admission and further workup of suspected encephalopathy with possible infection. On my evaluation, the patient will open eyes to voice but dozes off very easily. This is not her normal mentation. She is normally alert and interactive and making conversation. GCS of 14 on arrival, baseline is 15. Concern for polypharmacy. Urinalysis unremarkable. Labs still pending including ammonia, BNP, blood cultures. Will also obtain chest CT. [facility] Disclaimer: The information contained in this section may have been updated after the patient was seen, as this information can be updated by other users. Medical History Pleural effusion on right Acute respiratory failure with hypoxia On mechanically assisted ventilation Implantable intrathecal infusion pump present History of renal dialysis Peptic ulcer disease Asthma Arthritis Anemia Fibromyalgia Type 2 diabetes mellitus History of TB (tuberculosis) Chronic pain Depression Iron deficiency anemia Cervical (neck) region somatic dysfunction Degenerated intervertebral disc Surgical History History of laparotomy History of colonoscopy History of esophagogastroduodenoscopy (EGD) History of cervical spinal surgery Family History Other Arthritis Cancer Coronary artery disease Diabetes Hypertension Social History Smoking Status: Never smoker second hand exposure: No alcohol intake: never substance use type: denies use current occupational status: retired Travel in the last 8 weeks?: None household members: none housing: house current occupational exposures/hazards: No caffeine: Yes Have you lived/traveled outside US in past 30 days?: No Contact w/someone who lives/traveled outside US past 30 days?: No Exposure to someone with infectious disease in past 14 days?: No Do you have a fever (greater than 100.4 F or 38 C)?: No Have you tested positive for COVID-19?: No Exposed to someone with COVID-19 in past 14 days?: No Do you have a sore throat?: No Do you have a cough?: No Do you have any weakness?: No Do you have any diarrhea?: No Are you experiencing any unusual bleeding?: No Do you have any muscle aches/pain?: No Do you have any abdominal pain?: No Are you experiencing loss of taste or smell?: No Other Medical History Have you received the Flu Vaccine for this season: No Have you received the Pneumonia Vaccine: Yes Review of Systems Review of Systems Review of systems (narrative): 14 point review of systems performed, pertinent positives and negatives as per HPI Constitutional Constitutional: Reports weakness (Confusion, altered mental status) *Neurologic Neurologic: Reports weakness (Confusion, altered mental status) Meds Home Medications and Allergies Home Medications ?Medication ?Instructions ?Recorded ?Confirmed ?Type duloxetine 60 mg capsule,delayed 120 mg PO DAILY 09/09/17 05/06/25 History release hydromorphone (PF) 1 mg/mL in 0.9% 0.5 mg intrathecal CONT CHRONIC 12/26/21 05/06/25 History sodium chloride intravenous syringe PAIN ferrous sulfate 325 mg (65 mg 325 mg PO DAILY 12/03/24 05/06/25 History iron) tablet (FeroSul) magnesium oxide 400 mg (241.3 mg 400 mg PO BID 12/03/24 05/06/25 History magnesium) tablet pregabalin 100 mg capsule (Lyrica) 100 mg PO QIDP PRN neuropathic 05/05/25 05/06/25 Rx pain #120 caps tramadol 50 mg tablet 50 mg PO BID PRN pain #60 tabs 05/05/25 05/06/25 Rx pantoprazole 40 mg tablet,delayed 40 mg PO DAILY 05/06/25 05/06/25 History release New Prescriptions to Start Prescriptions: Allergies Allergy/AdvReac Type Severity Reaction Status Date / Time Sulfa (Sulfonamide Allergy Unknown NA-NAUSEA/V Verified 05/05/25 10:59 Antibiotics) (SULFA OMITING (SULFONAMIDE ANTIBIOTICS)) Exam Data for Last 24 hours Vital signs and Labs for Last 24 Hours: Temp Pulse Resp BP Pulse Ox O2 Del Method O2 Flow Rate 98.6 F 70 15 108/66 L 93 L Nasal Cannula 2 05/06/25 11:56 05/06/25 14:00 05/06/25 14:00 05/06/25 14:00 05/06/25 14:00 05/06/25 14:00 05/06/25 14:00 Laboratory Results - last 24 hr 05/06/25 12:19: VBG pH 7.32, VBG pCO2 56.2 H, VBG pO2 36.0, VBG HCO3 28.2, VBG Total CO2 30.0 H, VBG O2 Saturation 66.9, VBG Base Excess 2.1, VBG Lactic Acid 1.7 05/06/25 13:02: WBC 3.5 L, RBC 5.26, Hgb 16.1, Hct 47.6 H, MCV 90.5, MCH 30.6, MCHC 33.8, RDW 14.6, Plt Count 119 L, MPV 8.6, Neut % (Auto) 83.6 H, Lymph % (Auto) 7.2 L, [place] % (Auto) 8.6, Eos % (Auto) 0.0 L, Baso % (Auto) 0.3, Neut # (Auto) 2.9, Lymph # (Auto) 0.3 L, [place] # (Auto) 0.3, Eos # (Auto) 0.0, Baso # (Auto) 0.0, Total Counted 100, Neutrophils % (Manual) 81 H, Lymphocytes % (Manual) 9 L, Monocytes % (Manual) 9, Eosinophils % (Manual) 1, Platelet Estimate Slight decrease, RBC Morphology Normal, Sodium 134 L, Potassium 4.3, Chloride 93 L, Carbon Dioxide 31 H, Anion Gap 14.3, BUN 13, Creatinine 0.80, Estimated Creat Clear 61, Estimated GFR 71, Est GFR ( Amer) 86, Glucose 119 H, Calcium 9.7, Total Bilirubin 1.1, AST 55 H, ALT 26, Alkaline Phosphatase 81, Total Protein 9.4 H D, Albumin 5.3 H, Globulin 4.1 H, Albumin/Globulin Ratio 1.3 I & O for Last 24 hours: Intake & Output 05/03/25 05/04/25 05/05/25 05/06/25 23:59 23:59 23:59 23:59 Weight 72.121 kg Constitutional Constitutional: mild distress, chronically ill appearing and somnolent *Routine HEENT Exam Head: Present normocephalic Eye: Present EOMI and PERRL ENT: Present mucous membranes moist *Routine Neck Exam Neck: Present supple; Absent lymphadenopathy Comments: Cervical kyphosis *Routine Respiratory Exam Respiratory: Present prolonged expiratory phase, distant breath sounds and diminished air movement (Left base, absent air movement in right lower lung field.); Absent accessory muscle use, rhonchi or crackles *Routine Cardiovascular Exam Cardiovascular: Present RRR *Routine Abdominal Exam Abdominal: Present soft, normoactive bowel sounds and surgical scars; Absent tenderness *Routine Rectal Exam Rectal:: deferred *Routine Genitalia Exam Genitalia:: deferred *Routine Extremities Exam Extremities: Present edema (Trace bilateral lower extremities to knees); Absent cyanosis or clubbing *Routine Skin Exam Skin: Present intact and warm; Absent rash Comments: Feet cool to touch but not cold *Routine Neurological Exam Neurological: Present alert, altered mental status and moving all extremities Comments: Oriented to self and place. GCS 14, E3, V6, M6 Assessment and Plan *Assessment and plan (1) Toxic encephalopathy: Status: Acute Category: Medical Code(s): G92.9 - Unspecified toxic encephalopathy (2) Hypoxia: Status: Acute Category: Medical Code(s): R09.02 - Hypoxemia (3) Chronic hypercapnia: Status: Acute Category: Medical Code(s): R06.89 - Other abnormalities of breathing (4) Lumbar radiculopathy: Status: Acute Category: Medical Code(s): M54.16 - Radiculopathy, lumbar region (5) Bilateral knee pain: Status: Acute Qualifiers: Chronicity: chronic Qualified Code(s): M25.561 - Pain in right knee; M25.562 - Pain in left knee; G89.29 - Other chronic pain Category: Medical Code(s): M25.561 - Pain in right knee; M25.562 - Pain in left knee (6) Degenerative disc disease, lumbar: Status: Acute Category: Medical Code(s): M51.369 - Other intervertebral disc degeneration, lumbar region without mention of lumbar back pain or lower extremity pain (7) Type 2 diabetes mellitus: Status: Acute Category: Medical Code(s): E11.9 - Type 2 diabetes mellitus without complications (8) Polypharmacy: Status: Acute Category: Medical Code(s): Z79.899 - Other fci (current) drug therapy (9) Implantable intrathecal infusion pump present: Status: Acute Category: Medical Code(s): Z96.89 - Presence of other specified functional implants Plan 69-year-old female with multiple comorbidities who presents with confusion. Appears to be encephalopathic with decreased GCS. Workup still pending. Discussed case with ER physician, request admission for further workup and management of patient's altered mental status. I agreed to admit for further care. Getting additional imaging and lab work. Addressed as follows: Encephalopathy, suspected to be toxic due to polypharmacy Acute hypoxia Suspected CHF - Unclear etiology at this time. Does have some mild hypercapnia with pCO2 of 56 but pH is normal at 7.32. Appears compensated with bicarb of 31. Ammonia level is pending. - In setting of polypharmacy, will hold doses as below and monitor for improvement. - Urine unremarkable, not concerning for UTI -Given her new oxygen requirement, room air sat was 85% on presentation. Initiated on 2 L oxygen with improvement to low 90s. Was on oxygen continuously while at rehab earlier this year. Suspect she needs oxygen at baseline. Concern for possible pneumonia overlying her effusion. Will obtain CT of chest to evaluate better lung parenchyma on right side. - Effusion chronic for over a year. Will obtain BNP to evaluate for component of CHF. Strong concern for heart failure component in the setting of effusion along with lower extremity edema. - Initiated on empiric ceftriaxone 1 g daily. Blood cultures pending. - Goal sats greater 90%. - Echocardiogram ordered for Thursday morning - Ordered repeat CBC, CMP, magnesium, A1c and TSH for the morning Reportedly diabetic per history. Not on any diabetes specific medications at this time. Glucose 119 on admission. A1c pending Chronic pain: Polypharmacy -Continue pain pump. Was interrogated by pain clinic nurse practitioner, appears to be functioning appropriately. Was just filled yesterday. - Hold on oral tramadol. Decrease Lyrica to half dose available every 6 hours for severe breakthrough pain. Risk for oversedation from her tramadol and Lyrica. Monitor for improvement with reduced doses. Depression: Continue Cymbalta at half dose of 60 mg given risk for sedation. History of peptic ulcer disease with perforation. Continue pantoprazole 40 mg daily full code Lovenox 40 mg subcu daily Cardiac diet
[2025-05-06 14:23] LABS: Bilirubin,Urine Negative (Negative); Color,Urine YELLOW (Yellow); Glucose,Urine (UA) Negative (Negative); Ketones,Urine Negative (Negative); Leukocyte Esterase,Urine Negative (Negative); PH,Urine 6.5 (5.0-8.5); Protein,Urine TRACE (Negative); Specific Gravity, Urine <= 1.005 (1.005-1.030); Urobilinogen,Urine 0.2 EU/dl (0.2)
--- NOTE | 2025-05-06 14:31 | PC.NURSE ---
attempted to call report on patient, nurse said she would have other nurse call er
--- NOTE | 2025-05-06 14:48 | PC.NURSE ---
arrived by stretcher from ED
--- NOTE | 2025-05-06 15:16 | CT_ITS ---
PROCEDURE INFORMATION: Exam: CT Chest Without Contrast; Diagnostic Exam date and time: 05/06/2025 5:18 PM Age: 69 years old Clinical indication: Shortness of breath; Additional info: Confusion, new o2 requirement TECHNIQUE: Imaging protocol: Diagnostic computed tomography of the chest without contrast. Radiation optimization: All CT scans at this facility use at least one of these dose optimization techniques: automated exposure control; mA and/or kV adjustment per patient size (includes targeted exams where dose is matched to clinical indication); or iterative reconstruction. COMPARISON: CT ANGIO CHEST PE PROTOCOL 12/02/2024 2:03 PM FINDINGS: Lungs: Chronic atelectasis right lung base; similar to 12/02/2024. Pleural spaces: Unremarkable. No pneumothorax. No pleural effusion. Heart: Unremarkable. No cardiomegaly. No pericardial effusion. Coronary arteries: Coronary artery calcifications. Lymph nodes: Unremarkable. No enlarged lymph nodes. Vasculature: Unremarkable. No aortic aneurysm. Diaphragm: Persistent elevation right hemidiaphragm. Bones/joints: Unremarkable. No acute fracture. Soft tissues: Unremarkable. IMPRESSION: 1. No evidence for new focal infiltrate. 2. Chronic atelectasis right lung base; similar to 12/02/2024. 3. Persistent elevation right hemidiaphragm.
[2025-05-06 15:34] LABS: NT Pro Brain Natriuretic Pep. 1180 pg/mL (0-125)
[2025-05-06 16:14] LABS: Ammonia < 9 umol/L (9-30)
[2025-05-06] MEDS: FUROSEMIDE 40MG/4ML VIAL 40 MG IV (17:40)
--- NOTE | 2025-05-06 18:18 | PC.WOUNDNOTE ---
4 INCH OPENING NOTED IN RIGHT INGUINAL FOLD.
--- NOTE | 2025-05-06 18:26 | PC.NURSE ---
new admit this shift. requiring 2L NC to maintain sats >90%. RA at baseline. no complaints of pain. excoriation noted under breasts and to abd folds. no needs at this time. call light within reach.
[2025-05-06] MEDS: ACETAMINOPHEN 325MG TAB 650 MG PO (19:38)
[2025-05-06] MEDS: MAGNESIUM OXIDE 400MG TABLET 400 MG PO (20:15)
[2025-05-07 04:00] VITALS: BP 95/58; PULSE 68; RESP 16; TEMP 36.9; O2SAT 93; BMI 27.8
[2025-05-07] MEDS: ACETAMINOPHEN 325MG TAB 650 MG PO ×4 (04:02→20:10)
[2025-05-07 07:22] LABS: Hematocrit 41.5 % (37.0-47.0); Immature Granulocytes % 0.4 %; Mean Corpuscular HGB Conc 33.0 g/dL (31.8-35.4); Mean Corpuscular Hemoglobin 30.0 pg (27.0-31.2); Mean Corpuscular Volume 91.0 fl (81-99); Nucleated Red Blood Cells % 0 %; Platelet Count 88 K/mm3 (142-424); Red Blood Count 4.56 M/mm3 (4.20-5.40); Red Cell Distribution Width-SD 49.2 fL; White Blood Count 2.6 K/mm3 (4.8-10.8)
[2025-05-07 07:28] LABS: Chloride 95 mmol/L (98-107)
[2025-05-07 07:29] LABS: Albumin Level 4.2 g/dl (3.5-5.0); Potassium 3.8 mmoL/L (3.5-5.1); Sodium 135 mmol/L (136-145)
[2025-05-07 07:31] LABS: Blood Urea Nitrogen 16 mg/dl (7-17); Creatinine Clearance Estimated 63 mL/min (50-200); Creatinine,Serum 0.80 mg/dl (0.52-1.04); Estimated Glomerular Filt Rate 71 ml/min (>60); GFR (African American) 86 ML/MIN (>60)
[2025-05-07 07:32] LABS: Alanine Aminotransferase 18 U/L (12-78); Albumin/Globulin Ratio 1.3 (1.1-1.8); Alkaline Phosphatase 66 U/L (38-126); Anion Gap 12.8 mEq/L (5-15); Aspartate Amino Transferase 38 U/L (14-36); Bilirubin,Total 0.5 mg/dl (0.2-1.3); Calcium 9.3 mg/dl (8.4-10.2); Carbon Dioxide 31 mmol/L (22.0-30.0); Globulin 3.2 g/dL (1.3-3.2); Glucose 106 mg/dl (74-100); Magnesium 2.2 mg/dl (1.6-2.3); Total Protein,Serum 7.4 g/dl (6.3-8.2)
[2025-05-07 08:00] VITALS: BP 107/55; PULSE 77; RESP 14; TEMP 36.6; O2SAT 93
[2025-05-07 08:01] LABS: Thyroid Stimulating Hormone 0.50 uIU/mL (0.465-4.68)
[2025-05-07 08:03] LABS: Hemoglobin A1C 5.2 % (4.0-6.0)
[2025-05-07 08:22] LABS: Hemoglobin 13.7 g/dL (12.2-16.2)
[2025-05-07] MEDS: MAGNESIUM OXIDE 400MG TABLET 400 MG PO ×2 (09:00→20:06)
[2025-05-07] MEDS: PANTOPRAZOLE 40MG TABLET 40 MG PO (09:00)
--- NOTE | 2025-05-07 09:20 | P.PN_ITS ---
Subjective *Date: 05/07/25 *Time: 09:20 Interval history: Patient feels better today. Chart reviewed, case discussed with Dr. Hale. Medical Exam Vital signs and Labs for Last 24 Hours: Vital Signs Temp Pulse Pulse Resp BP BP Pulse Ox 05/07/25 08:00 05/07/25 08:00 97.8 F 77 14 107/55 L 93 L 05/07/25 06:32 05/07/25 05:00 05/07/25 04:00 98.4 F 68 16 95/58 L 93 L 05/07/25 03:00 05/07/25 01:00 05/06/25 23:52 98.3 F 69 16 94/58 L 96 05/06/25 22:57 05/06/25 21:00 05/06/25 20:00 05/06/25 19:59 98.3 F 77 17 102/58 L 92 L 05/06/25 18:50 05/06/25 17:00 05/06/25 15:13 98.6 F 85 16 106/80 L 05/06/25 15:00 98.6 F 75 16 119/76 90 L 05/06/25 15:00 05/06/25 14:56 05/06/25 14:30 64 11 L 107/60 L 95 05/06/25 14:00 70 15 108/66 L 93 L 05/06/25 13:37 79 13 151/78 H 93 L 05/06/25 13:00 88 90 L 05/06/25 12:31 80 15 139/79 93 L 05/06/25 12:15 82 14 158/91 H 89 L 05/06/25 11:56 98.6 F 86 15 158/91 H 85 L O2 Del Method O2 Flow Rate 05/07/25 08:00 Nasal Cannula 2 05/07/25 08:00 Nasal Cannula 2 05/07/25 06:32 Nasal Cannula 2 05/07/25 05:00 Nasal Cannula 2 05/07/25 04:00 Nasal Cannula 2 05/07/25 03:00 Nasal Cannula 2 05/07/25 01:00 Nasal Cannula 2 05/06/25 23:52 Nasal Cannula 2 05/06/25 22:57 Nasal Cannula 2 05/06/25 21:00 Nasal Cannula 2 05/06/25 20:00 Nasal Cannula 2 05/06/25 19:59 Nasal Cannula 2 05/06/25 18:50 Nasal Cannula 2 05/06/25 17:00 Nasal Cannula 2 05/06/25 15:13 Nasal Cannula 2 05/06/25 15:00 Nasal Cannula 2 05/06/25 15:00 Nasal Cannula 2 05/06/25 14:56 Nasal Cannula 2 05/06/25 14:30 05/06/25 14:00 Nasal Cannula 2 05/06/25 13:37 Nasal Cannula 2 05/06/25 13:00 Nasal Cannula 2 05/06/25 12:31 Nasal Cannula 2 05/06/25 12:15 Nasal Cannula 2 05/06/25 11:56 Room Air Intake and Output 05/06/25 05/07/25 05/07/25 23:59 07:59 15:59 Intake Total 530 / 680 150 / 550 400 / 550 Output Total 0 / 0 900 / 900 Balance 530 / 680 -750 / -350 400 / -350 Intake: Intake, Oral Amount 480 / 630 150 / 550 400 / 550 Intake, Total IV Amount 50 / 50 Ceftriaxone Sodium 1 gm In 0.9 50 / 50 % Sodium Chloride 50 ml @ 100 mls/hr IV Q24H [facility] Rx#: [id number] Output: Output, Urine Amount 0 / 0 900 / 900 Other: Number of Unmeasured Voids 1 0 Number of Bowel Movements 1 Weight 162 lb 12.8 oz Patient Weight 05/07/25 23:59 Weight 162 lb 12.8 oz Laboratory Results - last 24 hr 05/06/25 12:19: VBG pH 7.32, VBG pCO2 56.2 H, VBG pO2 36.0, VBG HCO3 28.2, VBG Total CO2 30.0 H, VBG O2 Saturation 66.9, VBG Base Excess 2.1, VBG Lactic Acid 1.7 05/06/25 13:02: WBC 3.5 L, RBC 5.26, Hgb 16.1, Hct 47.6 H, MCV 90.5, MCH 30.6, MCHC 33.8, RDW 14.6, Plt Count 119 L, MPV 8.6, Neut % (Auto) 83.6 H, Lymph % (Auto) 7.2 L, [place] % (Auto) 8.6, Eos % (Auto) 0.0 L, Baso % (Auto) 0.3, Neut # (Auto) 2.9, Lymph # (Auto) 0.3 L, [place] # (Auto) 0.3, Eos # (Auto) 0.0, Baso # (Auto) 0.0, Total Counted 100, Neutrophils % (Manual) 81 H, Lymphocytes % (Manual) 9 L, Monocytes % (Manual) 9, Eosinophils % (Manual) 1, Platelet Estimate Slight decrease, RBC Morphology Normal, Sodium 134 L, Potassium 4.3, Chloride 93 L, Carbon Dioxide 31 H, Anion Gap 14.3, BUN 13, Creatinine 0.80, Estimated Creat Clear 61, Estimated GFR 71, Est GFR ( Amer) 86, Glucose 119 H, Calcium 9.7, Total Bilirubin 1.1, AST 55 H, ALT 26, Alkaline Phosphatase 81, NT-Pro-B Natriuret Pep 1180 H, Total Protein 9.4 H D, Albumin 5.3 H, Globulin 4.1 H, Albumin/Globulin Ratio 1.3 05/06/25 13:41: Urine Color Yellow, Urine Appearance Clear, Urine pH 6.5, Ur Specific [place] <= 1.005, Urine Protein Trace, Urine Glucose (UA) Negative, Urine Ketones Negative, Urine Blood 3+ A, Urine Nitrate Negative, Urine Bilirubin Negative, Urine Urobilinogen 0.2, Ur Leukocyte Esterase Negative, Urine RBC None, Urine WBC None, Ur Squamous Epith Cells None, Urine Bacteria None 05/06/25 13:46: SARS-CoV-2 (PCR) Not detected, Influenza Type A (PCR) Not detected, Influenza Type B (PCR) Not detected, RSV (PCR) Not detected, Rhinovirus (PCR) Not detected 05/06/25 15:35: Ammonia < 9 L 05/07/25 06:20: WBC 2.6 L D, RBC 4.56, Hgb 13.7 D, Hct 41.5, MCV 91.0, MCH 30.0, MCHC 33.0, RDW 14.6, Plt Count 88 L D, MPV 9.9, Neut % (Auto) 53.2, Lymph % (Auto) 25.7, [place] % (Auto) 15.6 H, Eos % (Auto) 4.7, Baso % (Auto) 0.4, Neut # (Auto) 1.4 L, Lymph # (Auto) 0.7, [place] # (Auto) 0.4, Eos # (Auto) 0.1, Baso # (Auto) 0.0, Sodium 135 L, Potassium 3.8, Chloride 95 L, Carbon Dioxide 31 H, Anion Gap 12.8, BUN 16, Creatinine 0.80, Estimated Creat Clear 63, Estimated GFR 71, Est GFR ( Amer) 86, Glucose 106 H, Hemoglobin A1c 5.2, Calcium 9.3, Magnesium 2.2, Total Bilirubin 0.5, AST 38 H D, ALT 18 D, Alkaline Phosphatase 66, Total Protein 7.4, Albumin 4.2 D, Globulin 3.2, Albumin/Globulin Ratio 1.3, TSH 0.50 I & O for Labs for Last 24 Hours: Intake & Output 05/04/25 05/05/25 05/06/25 05/07/25 23:59 23:59 23:59 23:59 Intake Total 530 / 680 550 / 550 Output Total 0 / 0 900 / 900 Balance 530 / 680 -350 / -350 Weight 165 lb 12.8 oz 162 lb 12.8 oz Constitutional: Present no acute distress (conversant) Respiratory: Present diminished air movement (right base), normal respiratory effort and able to speak in complete sentences Cardiac: Present Regular Rhythm Extremities: Present full ROM Assessment and Plan *Assessment and plan (1) Toxic encephalopathy: Status: Acute Category: Medical Code(s): G92.9 - Unspecified toxic encephalopathy (2) Hypoxia: Status: Acute Category: Medical Code(s): R09.02 - Hypoxemia (3) Chronic hypercapnia: Status: Acute Category: Medical Code(s): R06.89 - Other abnormalities of breathing (4) Lumbar radiculopathy: Status: Acute Category: Medical Code(s): M54.16 - Radiculopathy, lumbar region (5) Bilateral knee pain: Status: Acute Qualifiers: Chronicity: chronic Qualified Code(s): M25.561 - Pain in right knee; M25.562 - Pain in left knee; G89.29 - Other chronic pain Category: Medical Code(s): M25.561 - Pain in right knee; M25.562 - Pain in left knee (6) Degenerative disc disease, lumbar: Status: Acute Category: Medical Code(s): M51.369 - Other intervertebral disc degeneration, lumbar region without mention of lumbar back pain or lower extremity pain (7) Type 2 diabetes mellitus: Status: Acute Category: Medical Code(s): E11.9 - Type 2 diabetes mellitus without complications (8) Polypharmacy: Status: Acute Category: Medical Code(s): Z79.899 - Other care home (current) drug therapy (9) Implantable intrathecal infusion pump present: Status: Acute Category: Medical Code(s): Z96.89 - Presence of other specified functional implants (10) Thrombocytopenia: Status: Acute Category: Medical Code(s): D69.6 - Thrombocytopenia, unspecified (11) Leukopenia: Status: Acute Category: Medical Code(s): D72.819 - Decreased white blood cell count, unspecified Plan Patient has improved. Plan to recheck labs tomorrow and monitor oxygen needs. Possible discharge home tomorrow with supplemental oxygen.
--- NOTE | 2025-05-07 11:30 | HMH.PHAAMS2 ---
- Antimicrobial Stewardship Review culture & sensitivity review Stewardship interventions: culture & sensitivity review (CURRENTLY RECEIVING ROCEPHIN, WBC LOW, AFEBRILE, BLD CX PENDING.)
[2025-05-07 11:38] VITALS: BP 120/65; PULSE 66; RESP 14; TEMP 36.6; O2SAT 96
[2025-05-07] MEDS: NYSTATIN TOPICAL POWDER 30GM 5 GM TP (12:18)
[2025-05-07] MEDS: PREGABALIN 50MG CAPSULE 50 MG PO ×2 (15:47→22:39)
[2025-05-07 16:00] VITALS: BP 104/60; PULSE 65; RESP 14; TEMP 36.7; O2SAT 96
[2025-05-07 20:00] VITALS: BP 124/60; PULSE 72; RESP 16; TEMP 36.7; O2SAT 98
[2025-05-07 23:57] VITALS: BP 112/64; PULSE 66; RESP 16; TEMP 36.6; O2SAT 98
[2025-05-08] MEDS: ACETAMINOPHEN 325MG TAB 650 MG PO ×3 (02:37→10:24)
--- NOTE | 2025-05-08 03:04 | PC.NURSE ---
Pt has remained A&OX4 and has tolerated 2L nasal cannula. She has complained of back pain multiple times and was medicated per MAR. Purewick has remained in place. No other complaints at this time, call light within reach.
[2025-05-08 04:00] VITALS: BP 102/57; PULSE 59; RESP 16; TEMP 36.4; O2SAT 95; BMI 28.6
--- NOTE | 2025-05-08 06:00 | CA_ITS ---
APPROVED REPORT EXAM: Comprehensive 2D, Doppler, and color-flow Echocardiogram Shaker Washer: Lida Soto RDCS Ht: 5 ft 4 in Wt: 165lbs BSA: 1.80 BP: 108/66 mmHg Indications: CHF,DM,HTN M-Mode Dimensions RVDd 1.70 cm (0.9-2.6) LA Diam 2.42 cm (1.9-4.0) LVDd 4.65 cm (3.5-5.7) LVDs 3.40 cm (3.5-5.7) IVSd 0.98 cm (0.6-1.1) PWd 0.89 cm (0.6-1.1) EF (Teich) 52.50% FS 26.90% EDV (Teich) 99.80 mL ESV (Teich) 47.40 mL LV Diastology E Decel Time 187 (160-240 msec) E/A Ratio 1.1 Aortic Valve TONY Index 1.22 cm2/m2 AoV Peak Jagjit. 135.0 (50-130 cm/s) AI PHT 522.00 ms AO Peak GR. 7.30 mmHg AO Mean GR. 3.60 (<5 mmHg) AO VTI 29.1 (18-25 cm) TONY (VTI) 2.25 (2.5-4.5 cm2) Mitral Valve MV E Max Jagjit. 88.0 (40-130 cm/s) MV A Velocity 80.0 (40-130 cm/s) E/A Ratio 1.09 MV PHT 55.0 ms Tricuspid Valve TR P. Velocity 288.00 cm/s RAP Estimate 10.00 mmHg RVSP 43.10 mmHg Left Ventricle The left ventricle is normal size. Left ventricular systolic function is normal. The left ventricular ejection fraction is within the normal range. There is increased left ventricular wall thickness. The septum is asynchronous. The left ventricular diastolic function is normal. LVEF is 55% Right Ventricle The right ventricle is mildly to moderately dilated. The right ventricular systolic function is mildly reduced. Atria Left atrium is mildly dilated. Right atrium is mildly dilated. There is no color Doppler evidence of interatrial shunt. Aortic Valve The aortic valve opens well. There is no hemodynamically significant aortic valvular stenosis. Trace aortic regurgitation is present. Mitral Valve The mitral valve is normal in structure. No evidence of mitral valve stenosis. Mild mitral regurgitation is present. Tricuspid Valve The tricuspid valve leaflets are thin and pliable. Mild tricuspid regurgitation. RVSP is 30-35 mmHg. Pulmonic Valve The pulmonary valve is grossly normal in structure. Mild pulmonic valve regurgitation is present. Great Vessels The aortic root is normal in size. IVC is normal in size and collapses >50% with inspiration. Pericardium There is no pericardial effusion. Other Information Study Quality: Fair Conclusion Normal LV systolic function. Asynchronous septum. Mild to moderate RV dilation with mild reduction in RV function. Biatrial dilation. Mild MR, mild TR, mild PI. Electronically signed by : Meg Kate MD 05/08/2025 09:31:16
[2025-05-08 06:33] LABS: Hematocrit 39.1 % (37.0-47.0); Hemoglobin 13.3 g/dL (12.2-16.2); Immature Granulocytes % 0.3 %; Mean Corpuscular HGB Conc 34.0 g/dL (31.8-35.4); Mean Corpuscular Hemoglobin 30.7 pg (27.0-31.2); Mean Corpuscular Volume 90.3 fl (81-99); Nucleated Red Blood Cells % 0 %; Platelet Count 95 K/mm3 (142-424); Red Blood Count 4.33 M/mm3 (4.20-5.40); Red Cell Distribution Width-SD 47.5 fL; White Blood Count 2.9 K/mm3 (4.8-10.8)
[2025-05-08] MEDS: PREGABALIN 50MG CAPSULE 50 MG PO (06:33)
[2025-05-08 06:38] LABS: Chloride 96 mmol/L (98-107); Sodium 137 mmol/L (136-145)
[2025-05-08 06:39] LABS: Potassium 3.8 mmoL/L (3.5-5.1)
[2025-05-08 06:41] LABS: Blood Urea Nitrogen 15 mg/dl (7-17); Creatinine Clearance Estimated 65 mL/min (50-200); Creatinine,Serum 0.80 mg/dl (0.52-1.04); Estimated Glomerular Filt Rate 71 ml/min (>60); GFR (African American) 86 ML/MIN (>60)
[2025-05-08 06:42] LABS: Anion Gap 10.8 mEq/L (5-15); Calcium 9.5 mg/dl (8.4-10.2); Carbon Dioxide 34 mmol/L (22.0-30.0); Glucose 103 mg/dl (74-100)
[2025-05-08 08:00] VITALS: BP 108/57; PULSE 76; RESP 16; TEMP 36.4; O2SAT 91; O2SAT 97
--- NOTE | 2025-05-08 08:33 | P.PN_ITS ---
Subjective *Date: 05/08/25 *Time: 09:03 Interval history: Patient feels better this morning. She states she did not sleep well last night due to noise and light from the hallway. Medical Exam Vital signs and Labs for Last 24 Hours: Vital Signs Temp Pulse Resp BP Pulse Ox O2 Del Method O2 Flow Rate 05/08/25 06:35 Nasal Cannula 2 05/08/25 05:00 Nasal Cannula 2 05/08/25 04:00 97.6 F 59 L 16 102/57 L 95 Nasal Cannula 05/08/25 03:00 Nasal Cannula 2 05/08/25 01:00 Nasal Cannula 2 05/07/25 23:57 97.8 F 66 16 112/64 98 Nasal Cannula 2 05/07/25 23:00 Nasal Cannula 2 05/07/25 20:48 Nasal Cannula 2 05/07/25 20:00 98.1 F 72 16 124/60 98 Nasal Cannula 2 05/07/25 19:37 Nasal Cannula 2 05/07/25 18:57 Nasal Cannula 2 05/07/25 17:00 Nasal Cannula 2 05/07/25 16:00 98.0 F 65 14 104/60 L 96 Nasal Cannula 2 05/07/25 15:00 Nasal Cannula 2 05/07/25 13:00 Nasal Cannula 2 05/07/25 11:38 97.9 F 66 14 120/65 96 Nasal Cannula 2 05/07/25 11:00 Nasal Cannula 2 05/07/25 09:00 Nasal Cannula 2 Intake and Output 05/07/25 05/08/25 05/08/25 23:59 07:59 15:59 Intake Total 900 / 2300 Output Total 700 / 700 Balance 900 / 1200 -700 / -700 Intake: Intake, Oral Amount 900 / 2250 Output: Output, Urine Amount 700 / 700 Other: Number of Unmeasured Voids 0 Weight 167 lb 9.6 oz Patient Weight 05/08/25 23:59 Weight 167 lb 9.6 oz Laboratory Results - last 24 hr 05/08/25 06:02: WBC 2.9 L, RBC 4.33, Hgb 13.3, Hct 39.1, MCV 90.3, MCH 30.7, MCHC 34.0, RDW 14.2, Plt Count 95 L, MPV 9.8, Neut % (Auto) 48.2, Lymph % (Auto) 31.1, Prentiss % (Auto) 14.3 H, Eos % (Auto) 5.8, Baso % (Auto) 0.3, Neut # (Auto) 1.4 L, Lymph # (Auto) 0.9, Prentiss # (Auto) 0.4, Eos # (Auto) 0.2, Baso # (Auto) 0.0, Sodium 137, Potassium 3.8, Chloride 96 L, Carbon Dioxide 34 H, Anion Gap 10.8, BUN 15, Creatinine 0.80, Estimated Creat Clear 65, Estimated GFR 71, Est GFR ( Amer) 86, Glucose 103 H, Calcium 9.5 I & O for Labs for Last 24 Hours: Intake & Output 05/05/25 05/06/25 05/07/25 05/08/25 23:59 23:59 23:59 23:59 Intake Total 530 / 680 2300 / 2300 Output Total 0 / 0 1100 / 1100 700 / 700 Balance 530 / 680 1200 / 1200 -700 / -700 Weight 165 lb 12.8 oz 162 lb 12.8 oz 167 lb 9.6 oz Microbiology Reports for the Last 24 Hours: Microbiology 05/06/25 15:40 Blood Blood Culture - Preliminary NO GROWTH AFTER 24 HOURS 05/06/25 15:35 Blood Blood Culture - Preliminary NO GROWTH AFTER 24 HOURS Constitutional: Present no acute distress (conversant) Respiratory: Present diminished air movement (right base), normal respiratory effort and able to speak in complete sentences Cardiac: Present Regular Rhythm Extremities: Present full ROM Assessment and Plan *Assessment and plan (1) Toxic encephalopathy: Status: Acute Category: Medical Code(s): G92.9 - Unspecified toxic encephalopathy (2) Hypoxia: Status: Acute Category: Medical Code(s): R09.02 - Hypoxemia (3) Chronic hypercapnia: Status: Acute Category: Medical Code(s): R06.89 - Other abnormalities of breathing (4) Lumbar radiculopathy: Status: Acute Category: Medical Code(s): M54.16 - Radiculopathy, lumbar region (5) Bilateral knee pain: Status: Acute Qualifiers: Chronicity: chronic Qualified Code(s): M25.561 - Pain in right knee; M25.562 - Pain in left knee; G89.29 - Other chronic pain Category: Medical Code(s): M25.561 - Pain in right knee; M25.562 - Pain in left knee (6) Degenerative disc disease, lumbar: Status: Acute Category: Medical Code(s): M51.369 - Other intervertebral disc degeneration, lumbar region without mention of lumbar back pain or lower extremity pain (7) Type 2 diabetes mellitus: Status: Acute Category: Medical Code(s): E11.9 - Type 2 diabetes mellitus without complications (8) Polypharmacy: Status: Acute Category: Medical Code(s): Z79.899 - Other terminal 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 Ok to discharge home.
--- NOTE | 2025-05-08 08:45 | HMH.PHAAMS2 ---
- Antimicrobial Stewardship Review culture & sensitivity review Stewardship interventions: culture & sensitivity review (CURRENTLY RECEIVING ROCEPHIN, WBC LOW, AFEBRILE, BLD CX NEGATIVE.)
--- NOTE | 2025-05-08 08:55 | SW/DCPLANNER ---
Addendum entered by Julia Martin 05/08/25 11:25: [facility] does not service [facility]. Was unable to get home health services for patient. Carol Coleman Addendum entered by Julia Martin 05/08/25 10:37: [facility] is able to accept patient. I have called other Home health agencies and they do not service [facility]. I have sent out a text to another agency and awaiting a response to see if they service the area. Carol Coleman Addendum entered by Julia Martin 05/08/25 09:21: I faxed patient's informtaion to [facility] and will update once i hear back if they can accept patient or not. Carol Coleman Original Note: I spoke w/ patient regarding plans once medically stable for discharge. PT evaluated patient and recommended home w/ 24-7 care and home health vs placement. Patient stated that she does have a family friend w/ her 24-7. Patient is agreeable to home health services w/ no agency preference. CM will set up home health services prior to discharge. Per MD patient will discharge today.
[2025-05-08] MEDS: MAGNESIUM OXIDE 400MG TABLET 400 MG PO (09:40)
[2025-05-08] MEDS: PANTOPRAZOLE 40MG TABLET 40 MG PO (09:40)
--- NOTE | 2025-05-08 10:14 | HMH.PTEV ---
Physical Therapy Evaluation Rehab PT IP Evaluation Start: 05/06/25 15:38 Freq: ONCE Status: Active Protocol: Document 05/08/25 10:05 [facility] (Rec: 05/08/25 10:12 [facility] [id number]) Subjective/History History History Per H&P: Ms. Vega is a 69-year-old female with chronic debility. Has osteoarthritis and degenerative disc disease. Pain pump in place. Was admitted earlier this year in November where she was found to have pancreatitis. Also found to have peptic ulcer with perforation. Treated with antibiotics, Levophed, laparotomy with a Aris patch repair. Was discharged to rehab where she stayed until December. Has been home with family since. Just presented yesterday for pain pump refill. Also received her flu shot. Presents to the ER today with complaint of weakness and some mild confusion. Found to have O2 sat of 85% on room air on arrival. Of note [facility] Workup in the ER with white count of 3.5, chest x-ray with persistent effusion on right side that is marginally worse. Blood gas showing pH 7.32, pCO2 of 56. Compensated with bicarb of 31 on CMP. Kidney function at baseline with BUN 13, creatinine 0.8. Takes tramadol and Lyrica in addition to her Dilaudid pain pump. Medicine was consulted for admission and further workup of suspected encephalopathy with possible infection. On my evaluation, the patient will open eyes to voice but dozes off very easily. This is not her normal mentation. She is normally alert and interactive and making conversation. GCS of 14 on arrival, baseline is 15. Concern for polypharmacy. Urinalysis unremarkable. Labs still pending including ammonia, BNP, blood cultures. Will also obtain chest CT. Subjective Subjective PLOF: IND with transfers from EOB > BSC. Uses a w/c for daily mobility. Uses a rollator for ambulation. Pt reports she has not been able to ambulate IND for at least 8 months. HOME: Pt lives with her engineering writer in a home with ramped entrance. ASSIST: Registered Safety Engineer provides 24/7 assistance. [facility] How much help from another person do you currently need... Turning from your A little back to your side while in a flat bed without using bedrails? Moving from lying on A little back to sitting on the side of a flat bed without using bedrails? Moving to and from a A little bed to a chair ( including a wheelchair)? Standing up from a A little chair using your arms? (e.g., wheelchair, bedside chair) Walking in hospital A little room? Climbing 3-5 steps A lot with a railing? Mobility Score 17 Mobility Level [facility] Mobility 5 Stand (1 or more minutes) Mobility Calculator Rehab PT IP Eval Objective Appearance Patient Behavior Appropriate,Cooperative Patient Orientation Person Difficulty following none instructions Speech Pattern Clear Ambulation Patient Able to No Ambulate Balance Ability to Arise Able, uses arms to help Sitting Balance Steady, safe Standing Balance Unsteady Dynamic Sitting Good Balance Ability Dynamic Standing Poor Balance Ability Transfers Bed Transfer Ability Minimal x 1 (25% assist) Sit to Stand Bed Minimal x 1 (25% assist) Transfer Ability Rehab PT IP prob,goals,plan Problems Date of Evaluation: 05/08/25 PT IP Problems Bed Mobility,Transfers,Gait,Balance,Self care,Safety Rehab Potential Rehab Potential Good Plan PT Intervention Plan Bed Mobility,Transfers,Gait,Balance,Self care,Safety, Therapeutic Exercise Other Intervention 1-2 times Plan PT Plan Frequency Daily Duration Goals Met Discharge Goals Bed Transfer Ability Contact Guard/Hand Hold Sit to Stand Chair Contact Guard/Hand Hold Transfer Ability Discharge Plan PT Discharge Plan Initial physical therapy evaluation performed. Patient presents below baseline at this time in functional mobility, transfers, gait, and strength. Pt would benefit from skilled PT while at [facility] to prevent further functional decline and maximize safety with mobility. Pt most appropriate to d/c home with 24/7 family assistance. PT recommending home health PT services to address deficits. If pt does not have 24/7 assistance at home, pt would benefit from skilled inpatient rehab to maximize safety with mobility. Eval Complexity Eval Charge Codes 97375 - Moderate Complexity PHYSICIAN CERTIFICATION: I certify the specified therapy services for [facility] are required, authorized, and reviewed every 30 days.
--- NOTE | 2025-05-08 11:58 | HMH.OTEV ---
OT Evaluation Rehab OT IP Evaluation Start: 05/06/25 14:26 Freq: ONCE Status: Discharge Protocol: Document 05/08/25 11:54 [facility] (Rec: 05/08/25 11:57 [facility] [id number]) Rehab OT IP Assessment Subjective History Per H&P: Ms. Vega is a 69-year-old female with chronic debility. Has osteoarthritis and degenerative disc disease. Pain pump in place. Was admitted earlier this year in November where she was found to have pancreatitis. Also found to have peptic ulcer with perforation. Treated with antibiotics, Levophed, laparotomy with a Aris patch repair. Was discharged to rehab where she stayed until December. Has been home with family since. Just presented yesterday for pain pump refill. Also received her flu shot. Presents to the ER today with complaint of weakness and some mild confusion. Found to have O2 sat of 85% on room air on arrival. Of note was on 1 L oxygen continuously while at the [facility] in November and December. Workup in the ER with white count of 3.5, chest x-ray with persistent effusion on right side that is marginally worse. Blood gas showing pH 7.32, pCO2 of 56. Compensated with bicarb of 31 on CMP. Kidney function at baseline with BUN 13, creatinine 0.8. Takes tramadol and Lyrica in addition to her Dilaudid pain pump. Medicine was consulted for admission and further workup of suspected encephalopathy with possible infection. On my evaluation, the patient will open eyes to voice but dozes off very easily. This is not her normal mentation. She is normally alert and interactive and making conversation. GCS of 14 on arrival, baseline is 15. Concern for polypharmacy. Urinalysis unremarkable. Labs still pending including ammonia, BNP, blood cultures. Will also obtain chest CT. Subjective PLOF: IND with transfers from EOB > BSC. Uses a w/c for daily transfers. Uses a rollator for ambulation. Pt reports she has not been able to ambulate IND for at least 8 months. HOME: Pt lives with her press bucker in a home with ramped entrance. ASSIST: Glass Smoother provides 24/7 assistance. Pt is dependent upon caregiver for completion of all IADLs. Pt also requires assistance for ADLS such as lower body dressing and bathing to increase safety. Objective Patient Orientation Person,Place,Birthday Right Upper Min Limitation <25% Extremity Gross ROM Left Upper Extremity Min Limitation <25% Gross ROM Bed Mobility bed mobility-scooting,bed mobility - supine/sit Assist Level Minimal x 1 (25% assist) Rehab OT IP prob,goals,plan Problems Date of Evaluation: 05/08/25 OT IP Problems Bed Mobility,Transfers,Balance,Self care,Safety Rehab Potential Rehab Potential Good Equipment Needs Assistive Devices Rolling / Wheeled Walker Plan OT intervention Plan Bed Mobility,Transfers,Balance,Self care,Safety, Therapeutic Exercise OT Plan Frequency Daily Duration LOS Discharge Goals Bed Mobility Ability Standby Assistance Sit to Stand Chair Moderate x 1 (50% assist) Transfer Ability Chair Transfer Moderate x 1 (50% assist) Ability Chair Transfer Stand Step Pivot Technique Chair Transfer Rolling Walker Assistive Devices Lower Body Dressing Moderate Assistance Ability Upper Body Dressing Minimal Assistance Ability Performing Toilet Moderate Assistance Hygiene Ability Overall Commode/ Minimal Assistance,Moderate Assistance Toilet Transfer Ability Commode/Toilet Stand Step Pivot Transfer Technique Discharge Plan OT Discharge Plan Initial OT evaluation performed. Patient presents below baseline at this time in functional transfers, ADL independence, and strength. Pt would benefit from skilled OT while at [facility] to prevent further functional decline and maximize safety. Pt most appropriate to d/c home with 24/7 family assistance. OT recommending home health OT services to address deficits. If pt does not have 24/7 assistance at home, pt would benefit from skilled inpatient rehab to maximize safety and increase independence. Eval Complexity Eval Charge Codes 45718 - Moderate Complexity PHYSICIAN CERTIFICATION: I certify the specified therapy services for [facility] are required, authorized, and reviewed every 30 days.
--- NOTE | 2025-05-09 10:21 | SW/DCPLANNER ---
Spoke with patient on the phone. Patient stated that she is doing good. patient stated that she is aware of her upcoming appointments. Patient stated that she was not prescribed any new medicine. Patient stated that she has no concerns or questions at this time. Carol Coleman
--- NOTE | 2025-05-14 00:52 | P.DS_ITS ---
General Admission date:: 05/06/25 Discharge date: 05/08/25 HPI HPI HPI: Ms. Vega is a 69-year-old female with chronic debility. Has osteoarthritis and degenerative disc disease. Pain pump in place. Was admitted earlier this year in November where she was found to have pancreatitis. Also found to have peptic ulcer with perforation. Treated with antibiotics, Levophed, laparotomy with a Aris patch repair. Was discharged to rehab where she stayed until December. Has been home with family since. Just presented yesterday for pain pump refill. Also received her flu shot. Presents to the ER today with c omplaint of weakness and some mild confusion. Found to have O2 sat of 85% on room air on arrival. Of note [facility] L [facility] Workup in the ER with white count of 3.5, chest x-ray with persistent effusion on right side that is marginally worse. Blood gas showing pH 7.32, pCO2 of 56. Compensated with bicarb of 31 on CMP. Kidney function at baseline with BUN 13, creatinine 0.8. Takes tramadol and Lyrica in addition to her Dilaudid pain pump. Medicine was consulted for admission and further workup of suspected encephalopathy with possible infection. On my evaluation, the patient will open eyes to voice but dozes off very easily. This is not her normal mentation. She is normally alert and interactive and making conversation. GCS of 14 on arrival, baseline is 15. Concern for polypharmacy. Urinalysis unremarkable. Labs still pending including ammonia, BNP, blood cultures. Will also obtain chest CT. Hospital Course Hospital Course Hospital Course: The patient was felt to have encephalopathy due to polypharmacy. Oxygen was initiated due to hypoxia and a CT of the chest was ordered as there was a concern for possible pneumonia overlying her effusion. She was empirically started on Rocephin. Her pain pump was interrogated by the pain clinic nurse practitioner and was functioning appropriately. Her oral tramadol was held and her Lyrica was decreased. She did begin feeling better. Her blood cultures showed no growth. Her chest CT showed no infiltrates. Her room air oxygen saturation was 91% on the morning of 05/08/2025. She did have an intrathecal refill of her pain pump while in the hospital and she was stable to be discharged home. Exam Data for Last 24 hours Vital signs and Labs for Last 24 Hours: Temp Pulse Resp BP Pulse Ox O2 Del Method O2 Flow Rate 97.5 F L 76 16 108/57 L 91 L Room Air 2 05/08/25 08:00 05/08/25 08:00 05/08/25 08:00 05/08/25 08:00 05/08/25 08:00 05/08/25 09:00 05/08/25 08:00 Narrative: Constitutional Constitutional: no acute distress *Routine HEENT Exam Head: Present normocephalic Eye: Present EOMI and PERRL ENT: Present mucous membranes moist *Routine Neck Exam Neck: Present supple; Absent lymphadenopathy *Routine Respiratory Exam Respiratory: Present CTA bilaterally *Routine Cardiovascular Exam Cardiovascular: Present RRR *Routine Abdominal Exam Abdominal: Present soft and distended; Absent normoactive bowel sounds Comments: Abdomen distended but compressible. No peritonitis noted, mild TTP *Routine Rectal Exam Rectal:: deferred *Routine Genitalia Exam Genitalia:: deferred *Routine Extremities Exam Extremities: Absent cyanosis, clubbing or edema *Routine Skin Exam Skin: Present warm; Absent rash *Routine Neurological Exam Neurological: Present alert and oriented X3 DS: Diagnosis Discharge Diagnosis (1) Toxic encephalopathy: Status: Acute Code(s): G92.9 - Unspecified toxic encephalopathy (2) Hypoxia: Status: Acute Code(s): R09.02 - Hypoxemia (3) Chronic hypercapnia: Status: Acute Code(s): R06.89 - Other abnormalities of breathing (4) Lumbar radiculopathy: Status: Acute Code(s): M54.16 - Radiculopathy, lumbar region (5) Bilateral knee pain: Status: Acute Code(s): M25.561 - Pain in right knee; M25.562 - Pain in left knee Qualifiers: Chronicity: chronic Qualified Code(s): M25.561 - Pain in right knee; M25.562 - Pain in left knee; G89.29 - Other chronic pain (6) Degenerative disc disease, lumbar: Status: Acute Code(s): M51.369 - Other intervertebral disc degeneration, lumbar region without mention of lumbar back pain or lower extremity pain (7) Type 2 diabetes mellitus: Status: Acute Code(s): E11.9 - Type 2 diabetes mellitus without complications (8) Polypharmacy: Status: Acute Code(s): Z79.899 - 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 middle 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) drug therapy (9) Implantable intrathecal infusion pump present: Status: Acute Code(s): Z96.89 - Presence of other specified functional implants (10) Thrombocytopenia: Status: Acute Code(s): D69.6 - Thrombocytopenia, unspecified (11) Leukopenia: Status: Acute Code(s): D72.819 - Decreased white blood cell count, unspecified Meds Home Medications and Allergies Home Medications ?Medication ?Instructions ?Recorded ?Confirmed ?Type duloxetine 60 mg capsule,delayed 120 mg PO DAILY 09/0905/06/25 History release hydromorphone (PF) 1 mg/mL in 0.9% 0.5 mg intrathecal CONT CHRONIC 12/26/21 05/06/25 History sodium chloride intravenous syringe PAIN pregabalin 100 mg capsule (Lyrica) 100 mg PO QIDP PRN neuropathic 05/05/25 05/06/25 Rx pain #120 caps tramadol 50 mg tablet 50 mg PO BID PRN pain #60 ta bs 05/05/25 05/06/25 Rx pantoprazole 40 mg tablet,delayed 40 mg PO DAILY 05/0605/06/25 History release albuterol sulfate 90 mcg/actuation 1 - 2 puff inhalati on Q4HP PRN SOA 05/07/25 05/07/25 History aerosol inhaler fluticasone furoate 200 1 inh inhalation DAILY 05/0705/07/25 History mcg-vilanterol 25 mcg/dose inhalation powder (Breo Ellipta) fluticasone propionate 50 1 spray intranasal BID 05/0705/07/25 History mcg/actuation nasal spray,suspension New Prescriptions to Start Prescriptions: Allergies Allergy/AdvReac Type Severity Reaction Status Date / Time Sulfa (Sulfonamide Allergy Unknown NA-NAUSEA/V Verified 05/05/25 10:59 Antibiotics) (SULFA OMITING (SULFONAMIDE ANTIBIOTICS)) Discharge Plan Disposition Patient Disposition: Home, Self-Care Condition: Good Follow up Plan Follow up with: George Jacob MD [Primary Care Provider, Medical] - 05/22/25 11:30 am Prescriptions/Medication Reconciliation: Continued pregabalin [Lyrica] 100 mg capsule 100 mg PO QIDP PRN (Reason: neuropathic pain) Qty: 120 2RF tramadol 50 mg tablet 50 mg PO BID PRN (Reason: pain) Qty: 60 2RF duloxetine 60 MG capsule,delayed release(DR/EC) 120 mg PO DAILY hydromorphone (PF)-0.9 % NaCl 1 MG/ML syringe 0.5 mg IT CONT Rx Instructions: MEDICATION DELIVERED VIA INTRATHECAL PAIN PUMP. TOTAL VOLUME OF PUMP IS 20ML pantoprazole 40 mg tablet,delayed release (DR/EC) 40 mg PO DAILY albuterol sulfate 90 mcg/actuation HFA aerosol inhaler 1 - 2 puff inhalation Q4HP PRN (Reason: SOA) fluticasone propionate 50 mcg/actuation spray,suspension 1 spray intranasal BID fluticasone furoate-vilanterol [Breo Ellipta] 200-25 mcg/dose blister with device 1 inh inhalation DAILY Problem Reconciliation Problems Reviewed?: Yes Patient Discharge Instructions ACTIVITY: Continue current activity DIET: continue same diet Patient Instructions: Encephalopathy, DI for Encephalopathy, DI for Altered Mental Status, DI for Hypoxia Print Language: Citizen Of [place] Providers Primary Care Provider: George Jacob Admit Provider: Dilan Hale Attending Provider: George Jacob
== END 2025-05-08 10:46 | disposition home or self-care (01) ==
LOC: ER 14:08 → 2ND 14:21
PROVIDERS: Admitting Provider Internal Medicine Adolescent Medicine; Emergency Provider Student in an Organized Health Care Education/Training Program; PCP Family Medicine; Visit Provider Family Medicine
DX: G92.9 Unspecified toxic encephalopathy (principal); R09.02 Hypoxemia; R06.89 Other abnormalities of breathing; M54.16 Radiculopathy, lumbar region; M25.561 Pain in right knee; M25.562 Pain in left knee; G89.29 Other chronic pain; M51.369 Other intervertebral disc degeneration, lumbar region without mention of lumbar back pain or lower extremity pain; E11.9 Type 2 diabetes mellitus without complications; Z79.899 Other long term (current) drug therapy; Z96.89 Presence of other specified functional implants; D69.6 Thrombocytopenia, unspecified; D72.819 Decreased white blood cell count, unspecified; J45.909 Unspecified asthma, uncomplicated; F32.A Depression, unspecified; M79.7 Fibromyalgia; Z83.3 Family history of diabetes mellitus; Z88.2 Allergy status to sulfonamides; R94.31 Abnormal electrocardiogram [ECG] [EKG]; J98.11 Atelectasis; I34.0 Nonrheumatic mitral (valve) insufficiency; I07.1 Rheumatic tricuspid insufficiency; J98.4 Other disorders of lung
CPT/HCPCS: 36415; 70450; 71045; 71250; 80048; 80053; 81001; 82140; 82803; 83036; 83735; 83880; 84443; 85007; 85025; 85027; 87040; 87631; 93005; 93306; 97162; 97166; 99285; G0378; J0696; J1650; J1938